=== PATIENT | female | born 1940 | race Caucasian/White ===

== ENCOUNTER 2022-06-30 13:43 | Outpatient (CLI) | payer MEDICARE, SELFPAY ==
--- OUTSIDE RECORDS SUMMARY | 2022-06-30 13:45 | XMS_ITS | Encounter Summary ---
:1940 Author Organization [facility] Address [address] [place] [address] Care Team Providers Name Role Phone Unavailable Primary Care Provider Unavailable Encounter Details Date Type Department Care Team Description 06/26/2018 Abstract [facility] CLARIBEL Cook ea Provider, Historical [address] [place] [address] Social History Tobacco Use Types Packs/Day Years Used Date Smoking Tobacco: Never Smokeless Tobacco: Never Alcohol Use Standard Drinks/Week Comments No 0 (1 standard drink = 0.6 oz pure alcoho l) Sex Assigned at Date Recorded Not on file documented as of this encounter Plan of Treatment Not on filedocumented as of this encounter Procedures Procedure Name Priority Date/Time Associated Diagnosis Comme nts BASIC METABOLIC PANEL, Routine 05/29/2018 Resul ts for this S/P procedure are i n the results section . documented in this encounter Results Basic Metabolic Panel (05/29/2018) P athologist Signature Glucose 119 mg/dL EXTERNAL NON-INTERFACED LAB Specimen (Source) Anatomical Location Collection Method / Collectio n Time Received Time / Laterality Volume Blood (Blood, Venous) Ordering Provider External M.D. LAB BLOOD ADD-ON Performing Organization Address City/State/ZIP Code Phon e Number EXTERNAL NON-INTERFACED LAB [address] [place], [place] [address] documented in this encounter Visit Diagnoses Not on filedocumented in this encounter
--- OUTSIDE RECORDS SUMMARY | 2022-06-30 13:45 | XMS_ITS | Encounter Summary ---
:1940 Author Organization [facility] Address [address] [place] [address] Care Team Providers Name Role Phone Unavailable Primary Care Provider Unavailable Reason for Visit Reason Comments Blurred Vision Appointment Request (Routine) - Closed Specialty Diagnoses / Procedures Referred By Contact Refer red To Contact Ophthalmology Referral ID Status Reason Start Date Expiration Date Visits Requ ested Visits Authorized [id number] Closed 12/13/2018 12/13/2019 1 Encounter Details Date Type Department Care Team Description 12/21/2018 Office Visit Department of Mauri Farrell Lef t (Primary Dx); Ophthalmology in [place] Lorenzana M.D. Replacement Intraocular Lens Status Post [address] [phone] Social History Tobacco Use Types Packs/Day Years Used Date Smoking Tobacco: Never Smokeless Tobacco: Never Alcohol Use Standard Drinks/Week Comments No 0 (1 standard drink = 0.6 oz pure alcoho l) Sex Assigned at Date Recorded Not on file documented as of this encounter Progress Notes Mauri Farrell M.D. - 12/21/2018 3:45 PM CDT Charla Graham was seen today for Blurred Vision #1 Myopia Left #2 Replacement Intraocular Lens Status Post The patient is concerned about blurriness in her left eye particularly when she watches TV. She is not wearing glasses for any visual tasks. Jerome vision was intended with her cataract surgery. Slit-lamp examination: Lid margins clean, conjunctiva is clear quiet, corneas clear, chambers quiet,lens implants well positioned with no capsule opacification. Fundus: OS the disc, macula, vessels and periphery are normal. The manifest refraction OS measures a -2.00 sphere with visual acuity correcting to 20/30 +2 Her near vision without correction with the left eye is J3 Impression: Status post bilateral cataract surgery with mono vision. Plan: Patient was educated about mono vision and how the left eye will seem blurry when looking at distance objects. She was reassured that the left eye is healthy and she was very satisfied with that explanation and is not interested in glasses. documented in this encounter Plan of Treatment Not on filedocumented as of this encounter Visit Diagnoses Diagnosis Myopia Left - Primary Replacement Intraocular Lens Status Post documented in this encounter
--- OUTSIDE RECORDS SUMMARY | 2022-06-30 13:45 | XMS_ITS | Encounter Summary ---
:1940 Author Organization [facility] Address [address] [place] [address] Care Team Providers Name Role Phone Unavailable Primary Care Provider Unavailable Reason for Visit Reason Comments Post-op Follow-up Encounter Details Date Type Department Care Team Description 07/04/2018 Office Visit Department of Mauri Farrell Aftercare Surgery Eye Ophthalmology in Sarbjit Lorenzana M.D. (Primary Dx) [address] [phone] Social History Tobacco Use Types Packs/Day Years Used Date Smoking Tobacco: Never Smokeless Tobacco: Never Alcohol Use Standard Drinks/Week Comments No 0 (1 standard drink = 0.6 oz pure alcoho l) Sex Assigned at Date Recorded Not on file documented as of this encounter Progress Notes Mauri Farrell M.D. - 07/04/2018 2:15 PM CST Charla Graham was seen today for Post-op Follow-up #1 Aftercare Surgery Eye Slit-lamp examination bilateral : Conjunctivae and sclerae are quiet, cornea(s)lear, anterior chamber(s) deep and quiet and lens implant(s) well centered. Intra-ocular pressure(s) wnl Impression: Status post bilateral cataract surgery doing well Plan: 1. Complete postop medications 2. Return to clinic in 1 year. CER documented in this encounter Plan of Treatment Not on filedocumented as of this encounter Visit Diagnoses Diagnosis Aftercare Surgery Eye - Primary documented in this encounter
--- OUTSIDE RECORDS SUMMARY | 2022-06-30 13:45 | XMS_ITS | Clinical Summary ---
:1940 Author Organization [facility] Address [address] [place] [address] Care Team Providers Name Role Phone Unavailable Primary Care Provider Unavailable Source Comments Patient records contain information from all sites at [facility]. For routine questions regarding patient records, call [phone] during business hours, M-F 8:00 AM - 5:00 PM Central Time. Record requests for emergency care only can be directed to [phone] at any time.[facility] Allergies Active Allergy Reactions Severity Noted Date Comments Ampicillin Itching Medium 10/28/2014 Tramadol Itching Medium 11/06/2012 Medications Medication Sig Dispensed Refills Start Date End Date Status glipiZIDE Take 10 mg by mouth. 0 10/20/2017 Active (GLUCOTROL) 10 mg tablet ubiquinone (COENZYME Take by mouth. 0 07/02/2013 Active Q10) 100 mg tablet OMEGA-3 FATTY Take 1 capsule by 0 06/06/2012 Active ACIDS-EPA ORAL mouth. ketorolac (ACULAR) Administer 1 drop 5 mL 1 06/11/2018 Active 0.5 % ophthalmic into the left eye 4 solution (four) times a day. Start 2 days piror to surgery and use until empty Additional Information Patient not taking. Reported on 07/04/2018 ketorolac (ACULAR) 0.5 % Administer 1 drop into the 5 mL 1 06/02/2018 Active ophthalmic solution right eye 4 (four) times a day. Start 2 days piror to surgery and use until empty Additional Information Patient not taking. Reported on 07/04/2018 prednisoLONE acetate (PRED Administer 1 drop into the 10 mL 0 06/11/2018 Active FORTE) 1 % ophthalmic right eye 4 (four) times a suspension day. Start 2 days prior to surgery and use for at least 30 days Additional Information Patient not taking. Reported on 07/04/2018 prednisoLONE acetate (PRED Administer 1 drop into the 10 mL 1 06/11/2018 Active FORTE) 1 % ophthalmic left eye 4 (four) times a suspension day. Start 2 days prior to surgery and use for 30 days following. Additional Information Patient not taking. Reported on 07/04/2018 moxifloxacin (VIGAMOX) 0.5 % Administer 1 drop into the 3 mL 1 06/11/2018 Active ophthalmic solution left eye 4 (four) times a day. Start 2 days prior to surgery. Use until bottle is empty Additional Information Patient not taking. Reported on 07/04/2018 moxifloxacin (VIGAMOX) 0.5 % Administer 1 drop into the 3 mL 1 06/02/2018 Active ophthalmic solution right eye 4 (four) times a day. Start 2 days prior to surgery and use until empty Additional Information Patient not taking. Reported on 07/04/2018 metFORMIN (GLUCOPHAGE) 500 mg tablet Take 500 mg by mouth. 0 05/14/2018 Active pravastatin (PRAVACHOL) 20 mg tablet Take 20 mg by mouth. 0 05/29/2018 Active Active Problems Problem Noted Date Diabetes Mellitus Type 2 Without Complication 05/31/20 18 Cataract Senile Nuclear Sclerosis Right 04/20/2018 Overview: Added automatically from request for sandra leger [id number] Cataract Senile Nuclear Sclerosis Left 04/20/2018 Overview: Added automatically from request for sandra leger [id number] Family History Medical History Relation Name Comments Hypertension Brother 1 Hypertension Brother 2 Diabetes Daughter Diabetes Mother Anesthesia problems Neg Hx Cataracts Neg Hx Glaucoma Neg Hx Macular degeneration Neg Hx Relation Name Status Comments Brother 1 Brother 2 Daughter Mother Social History Tobacco Use Types Packs/Day Years Used Date Smoking Tobacco: Never Smokeless Tobacco: Never Alcohol Use Standard Drinks/Week Comments No 0 (1 standard drink = 0.6 oz pure alcoho l) Sex Assigned at Date Recorded Not on file Last Filed Vital Signs Vital Sign Reading Time Taken Comments Blood Pressure 128/109 06/13/2018 12:30 PM CDT Pulse 73 06/13/2018 12:40 PM CDT Temperature 36.5 ??C (97.7 ??F) 06/13/2018 10:00 AM CDT Respiratory Rate 16 06/13/2018 10:00 AM CDT Oxygen Saturation 96% 06/13/2018 12:40 PM CDT Inhaled Oxygen Concentration - - Weight - - Height 155.7 cm (5' 1.3) 06/13/2018 10:00 AM CDT Body Mass Index - - Plan of Treatment Health Maintenance Due Date Last Done Comments Diabetic Office Visit with Foot 1940 Exam Office Visit for Blood Pressure 1940 Check / Re-check Urine Albumin 1940 COVID-19 Vaccine (#1) 01/15/1941 Pneumococcal vaccine (65+ years) 1946 (1 - PCV) DTaP,Tdap,and Td Vaccines (1 - 1957 Tdap) Zoster Vaccines (1 of 2) 1988 Hemoglobin A1C 11/12/2018 05/14/2018 Creatinine Level 05/04/2021 05/04/2020, 12/31/2018, 05/14/2018, Additional history exists Dilated Eye Exam 07/06/2021 07/06/2020, 04/18/2019, 12/21/2018, Additional history exists Depression Screening (Annual 08/14/2021 PHQ-2) Fall Risk Screen (Annual) 08/14/2021 Influenza Vaccine (#1) 2022 Medical Devices Implanted Type Area Improvement Director Device Shelf Model / Identifier Expiration Serial / Lot Date Hip Implant Hip Bilater Implant al: Hip Lens Tcn [id number] +25.0d - [id number] - [id number] Ocu lar [employer] [id number] / Implanted: Qty: 1 on 06/04/2018 by Mauri Joel am, M.D. at [facility] Lens (Previously [id number] / ALONDRA) Lens Tcn [id number] +26.0d - [id number] - [id number] Ocular Left: [employer] [id number] 12/07/2021 [id number] / Implanted: Qty: 1 on 06/13/2018 by Mauri Joel am, M.D. at [facility] Lens Eye (Previously [id number] / ALONDRA) Insurance Payer Benefit Plan / Subscriber ID Effective Dates Phone Addre ss Type Group MEDICARE MEDICARE A AND B [id number] 2003-Present [address] [place] [address] Advance Directives For more information, please contact: [phone] Latest Code Status on File Code Status Date Activated Date Inactivated Comments Full Code 06/13/2018 12:21 PM 06/13/2018 3:13 PM Question Answer Comments Full Code: Discussed Code Status History Code Status Date Activated Date Inactivated Comments Full Code 06/04/2018 11:49 AM 06/04/2018 2:31 PM Question Answer Comments Full Code: Discussed
--- OUTSIDE RECORDS SUMMARY | 2022-06-30 13:45 | XMS_ITS | Encounter Summary ---
:1940 Author Organization [facility] Address [address] [place] [address] Care Team Providers Name Role Phone Unavailable Primary Care Provider Unavailable Reason for Visit Reason Comments Eye Exam Encounter Details Date Type Department Care Team Description 04/18/2019 Comprehensive Visit Department of Paul Perez Mellitus Type 2 Without Complication (HCC) (Primary Dx); Ophthalmology in Sarbjit Lorenzana O.D. Astigma tism Regular Bilateral; [place], [place] Myopia Bilateral; [address] [facility] [place] [phone] Social History Tobacco Use Types Packs/Day Years Used Date Smoking Tobacco: Never Smokeless Tobacco: Never Alcohol Use Standard Drinks/Week Comments No 0 (1 standard drink = 0.6 oz pure alcoho l) Sex Assigned at Date Recorded Not on file documented as of this encounter Progress Notes Jam Perez O.D. - 04/18/2019 3:00 PM CDT Charla Graham was seen today for Eye Exam #1 Diabetes Mellitus Type 2 Without Complication (HCC) #2 Astigmatism Regular Bilateral #3 Myopia Bilateral #4 Presbyopia Impression: Diabetes without diabetic retinopathy. Myopic astigmatism with presbyopia. Pseudophakia with left eye set for near for mono vision. Plan: Patient is satisfied vision distance near without correction, manifest refraction of +2.50 addwas given for her information. She does not need to get glasses. Re-evaluate with full exam in 1 year. documented in this encounter Plan of Treatment Scheduled Orders Name Type Priority Associated Diagnoses Order S chedule OPH General eye exam Procedures Routine Diabetes Mellitus Ty pe 2 Expected: 04/19/2020 Without Complication (Approx imate), (HCC) Expires: 04/18/2022 Astigmatism Regular Bilateral Myopia Bilateral Presbyopia documented as of this encounter Visit Diagnoses Diagnosis Diabetes Mellitus Type 2 Without Complic ation (HCC) - Primary Astigmatism Regular Bilateral Myopia Bilateral Presbyopia documented in this encounter
--- OUTSIDE RECORDS SUMMARY | 2022-06-30 13:45 | XMS_ITS | Encounter Summary ---
:1940 Author Organization [facility] Address [address] [place] [address] Care Team Providers Name Role Phone Unavailable Primary Care Provider Unavailable Encounter Details Date Type Department Care Team Description 06/22/[address] [facility] CLARIBEL Cook ea Provider, Historical [address] [place] [phone] Social History Tobacco Use [...] Name Priority Date/Time Associated Diagnosis Comme nts HEMOGLOBIN A1C, B Routine 05/14/2018 Results fo r this procedure are i n the results section . LIPID PANEL, S Routine 05/14/2018 Results for t his procedure are i n the results section . BASIC METABOLIC PANEL, Routine 05/14/2018 Resul ts for this S/P procedure are i n the results section . documented in this encounter Results (ABNORMAL) Hemoglobin A1c (05/14/2018) P athologist Signature Hemoglobin A1c, 8.9 (A) 4.0 - 6.0 EXTERNAL B NON-INTERFACE D LAB Specimen (Source) Anatomical Location Collection Method / Collectio n Time Received Time / Laterality Volume Blood (Blood, Venous) Ordering Provider External M.D. LAB BLOOD ADD-ON Performing Organization Address City/State/ZIP Code Phon e Number EXTERNAL NON-INTERFACED LAB [address] [place], [place] [address] (ABNORMAL) Lipid Panel (05/14/2018) Patholo gist Method Time Signature Triglycerides 246 (A) 40 - 160 EXTERNAL NON-INTERFACE D LAB Cholesterol, Total 292 (A) 0 - 200 EXTERNAL NON-INTERFACE D LAB Cholesterol, HDL, 41 35 - 70 EXTERNAL S NON-INTERFACE D LAB LDL Cholesterol 202 EXTERNAL NON-INTERFACE D LAB Specimen (Source) Anatomical Location Collection Method / Collectio n Time Received Time / Laterality Volume Blood (Blood, Venous) Ordering Provider External M.D. LAB BLOOD NON ADD-ON Performing Organization Address [facility] Phon e Number EXTERNAL NON-INTERFACED LAB [address] [place], [place] [address] Basic Metabolic Panel (05/14/2018) P athologist Signature Glucose 132 mg/dL EXTERNAL NON-INTERFACED LAB BUN (Blood Urea 18 4 - 21 EXTERNAL Nitrogen), S NON-INTERFACED LAB Creatinine 0.84 0.5 - 1.1 EXTERNAL NON-INTERFACED LAB Potassium, S 4.4 3.4 - 5.3 EXTERNAL NON-INTERFACED LAB Sodium, S 138 137 - 147 EXTERNAL NON-INTERFACED LAB Specimen (Source) Anatomical Location Collection Method / Collectio n Time Received Time / Laterality Volume Blood (Blood, Venous) Ordering Provider External M.D. LAB BLOOD ADD-ON Performing Organization Address [facility] Phon e Number EXTERNAL NON-INTERFACED LAB [address] [place], [place] [address] documented in this encounter Visit Diagnoses Not on filedocumented in this encounter
--- OUTSIDE RECORDS SUMMARY | 2022-06-30 13:45 | XMS_ITS | Encounter Summary ---
:1940 Author Organization [facility] Address [address] [place] [address] Care Team Providers Name Role Phone Unavailable Primary Care Provider Unavailable Reason for Visit Reason Comments Post-op Follow-up Encounter Details Date Type Department Care Team Description 06/14/2018 Office Visit Department of Mauri Farrell Aftercare Surgery Eye Ophthalmology in Sarbjit Lorenzana M.D. (Primary Dx) [address] [phone] Social History Tobacco Use Types Packs/Day Years Used Date Smoking Tobacco: Never Smokeless Tobacco: Never Alcohol Use Standard Drinks/Week Comments No 0 (1 standard drink = 0.6 oz pure alcoho l) Sex Assigned at Date Recorded Not on file documented as of this encounter Progress Notes Mauri Farrell M.D. - 06/14/2018 1:00 PM CDT Charla Graham was seen today for Post-op Follow-up #1 Aftercare Surgery Eye History of present illness: The patient is 1 day postop cataract surgery of the left eye. Patient is taking the postop meds perprotocol. The patient is having no discomfort. The near vision is good . Slit-lamp examination left: Conjunctivae and sclerae are quiet, cornea shows mild edema and no punctate staining of the epithelium. The anterior chamber is shows mild cell and flare and the implant is well-centered. The incisions are intact and there are no leaks. Impression: 1. POD #1 cataract surgery of the left eye-doing well. Plan: 1. Postop care per protocol for the left eye. 2. Return to clinic in 2-3 weeks as scheduled for final postop check and manifest refraction. Dr. Farrell documented in this encounter Plan of Treatment Not on filedocumented as of this encounter Visit Diagnoses Diagnosis Aftercare Surgery Eye - Primary documented in this encounter
--- OUTSIDE RECORDS SUMMARY | 2022-06-30 13:45 | XMS_ITS | Encounter Summary ---
:1940 Author Organization [facility] Address [address] [place] [address] Care Team Providers Name Role Phone Unavailable Primary Care Provider Unavailable Reason for Visit Reason Comments Diabetic Eye Exam Encounter Details Date Type Department Care Team Description 07/06/2020 Comprehensive Visit Department of Paul Perez Mellitus Type 2 Without Complication (HCC) (Primary Dx); Ophthalmology in [place] Lorenzana O.D. Astigma tism Regular Bilateral; [place], [place] Myopia Bilateral; [address] [place] [place] [phone] Social History Tobacco Use Types Packs/Day Years Used Date Smoking Tobacco: Never Smokeless Tobacco: Never Alcohol Use Standard Drinks/Week Comments No 0 (1 standard drink = 0.6 oz pure alcoho l) Sex Assigned at Date Recorded Not on file documented as of this encounter Progress Notes Jam Perez O.D. - 07/06/2020 1:00 PM CST Charla Graham was seen today for Diabetic Eye Exam #1 Diabetes Mellitus Type 2 Without Complication (HCC) #2 Astigmatism Regular Bilateral #3 Myopia Bilateral #4 Presbyopia Impression: Yearly prevented exam for diabetes. No diabetic retinopathy is found in either eye. Low amount of astigmatism in right eye and myopic astigmatism on the left eye post cataract surgery. Has mono vision left eye for near. Plan: Manifest refraction of +2.50 add was given for patient's information. She is satisfied with vision with mono vision at this time. Recheck health of eyes with full exam in 1 year. R REPRESENTATIVE documented in this encounter Plan of Treatment Not on filedocumented as of this encounter Visit Diagnoses Diagnosis Diabetes Mellitus Type 2 Without Complic ation (HCC) - Primary Astigmatism Regular Bilateral Myopia Bilateral Presbyopia documented in this encounter
--- OUTSIDE RECORDS SUMMARY | 2022-06-30 13:46 | XMS_ITS | Encounter Summary ---
:1940 Author Organization [facility] Address [address] [place] [address] Care Team Providers Name Role Phone Unavailable Primary Care Provider Unavailable Encounter Details Date Type Department Care Team Description 06/04/2018 Hospital Encounter [facility] MA[facility] OR Mauri Farrell, [address] [place] [address] [address] [facility] [phone] [place] [address] (Wo rk) Social History Tobacco Use Types Packs/Day Years Used Date Smoking Tobacco: Never Smokeless Tobacco: Never Alcohol Use Standard Drinks/Week Comments No 0 (1 standard drink = 0.6 oz pure alcoho l) Sex Assigned at Date Recorded Not on file documented as of this encounter Last Filed Vital Signs Vital Sign Reading Time Taken Comments Blood Pressure 122/70 06/04/2018 11:45 AM CDT Pulse 81 06/04/2018 12:00 PM CDT Temperature 36.4 ??C (97.5 ??F) 06/04/2018 11:42 AM CDT Respiratory Rate 16 06/04/2018 11:42 AM CDT Oxygen Saturation 96% 06/04/2018 12:00 PM CDT Inhaled Oxygen Concentration - - Weight - - Height - - Body Mass Index - - documented in this encounter Discharge Instructions Discharge InstructionsMichelle Allen R.N. - 06/04/2018 10:48 AM CDT Images from the original note were not included. Care Following Cataract Surgery When you leave the hospital after your eye surgery, follow these instructions: Medications: Start these eye drops as directed. Wait approximately five minutes between eye drops. Vigamox- 1 drop to Right____ eye, 4 times/day until bottle is empty. Ketorolac - 1 drop to Right____ eye, 4 times/day until bottle is empty. Prednisolone - 1 drop to ____Right__ eye, 4 times/day for a minimum of 30 days Over- the-Counter Acetaminophen 650 mg every 4 hours as needed for pain. Do not exceed more than 4,000 mg in a 24 hourperiod. Artificial tears - 1 drop, 4 times/day as needed for discomfort. Eye Shield should be worn at bedtime or while napping to protect the eye. Wear the shield for at least a week or as instructed by your doctor. If you are discharged wearing an eye patch: Remove eye patch long enough to put eye drops in as directed. Leave eye patch in place until you see the doctor. Do not rub or press your eye for one week. Sunglasses: It is necessary to wear your glasses or sunglasses when you are outside to protect your eye while it is healing. It is normal to be sensitive to sunlight for several weeks following surgery and the sunglasses willhelp reduce this. Morning Crusting: A slight mattering is normal for a few days after surgery. Use a guaze pad or cotton ball, moistened with clean water to gently remove it. Activities: You can do all your normal activities, provided they are not extremely heavy. Do not lift anything greater than 25 pounds for one week. If you need a work-restriction note from your provider, ask for one at your follow- up appointment. If a physical activity makes your eye hurt, avoid it. It is fine to bend over, read, or watch Tv. Use your eyes as much as you want. Avoid swimming pools and hot tubs for two weeks. What to expect as your eye heals: Your vision on the day of surgery may be foggy and hazy; this is normal and will clear as your eye heals. Your glasses will be wrong for your eye but wearing them while the eye heals will not hurt it; however you may ask the [facility] to remove one eyeglass lens so that you can see with your surgically-repaired eye. Your glasses will be changed, as needed, two to four weeks following surgery or after your second eye surgery, if applicable. It is common to see small spots floating in your vision immediately following surgery. It is not unusual to see pink or red colors or for the eye to fell scratchy a few days after surgery. When to call your physician Call your eye surgeon if you notice: ?? Worsening of your vision. ?? Marked increase in eye redness or secretions from the eye. ?? Pain in your eye. (Itching and a mild gritty sensation are normal.) ?? Severe floaters develop suddenly are accompanied by flashes of light. If you have problems or concerns, contact your doctor or come to the Emergency Department. There also is a 06/03 surgical triage nurse line available that you can reach by calling [phone]. If you had anesthesia or sedation, do not drive for 24 to 48 hours. Follow-up appointment (bring bag with eye drops) Your surgeon is Dr. Farrell - [phone] (office) - [phone] (cell) documented in this encounter Medications at Time of Discharge Medication Sig Dispensed Refills Start Date End Date glipiZIDE (GLUCOTROL) 10 Take 10 mg by mouth. 0 0 10/20/2017 mg tablet ketorolac (ACULAR) 0.5 % Administer 1 drop into 5 mL 1 06/11/2018 ophthalmic solution the left eye 4 (four) times a day. Start 2 days piror to surgery and use until empty ketorolac (ACULAR) 0.5 % Administer 1 drop into 5 mL 1 06/02/2018 ophthalmic solution the right eye 4 (four) times a day. Start 2 days piror to surgery and use until empty moxifloxacin (VIGAMOX) Administer 1 drop into 3 mL 1 1 0.5 % ophthalmic solution the left eye 4 (four) times a day. Start 2 days prior to surgery. Use until bottle is empty OMEGA-3 FATTY ACIDS-EPA Take 1 capsule by 0 06/06 ORAL mouth. ubiquinone (COENZYME Q10) Take by mouth. 0 2012 100 mg tablet metFORMIN (GLUCOPHAGE) Take 500 mg by mouth. 0 500 mg tablet moxifloxacin (VIGAMOX) Administer 1 drop into 3 mL 1 1 0.5 % ophthalmic solution the right eye 4 (four) times a day. Start 2 days prior to surgery and use until empty pravastatin (PRAVACHOL) Take 20 mg by mouth. 0 20 mg tablet prednisoLONE acetate Administer 1 drop into 10 mL 0 (PRED FORTE) 1 % the right eye 4 (four) ophthalmic suspension times a day. Start 2 days prior to surgery and use for at least 30 days prednisoLONE acetate Administer 1 drop into 10 mL 1 (PRED FORTE) 1 % the left eye 4 (four) ophthalmic suspension times a day. Start 2 days prior to surgery and use for 30 days following. documented as of this encounter H&P Notes Mauri Farrell M.D. - 06/04/2018 11:11 AM CDT INTERVAL HISTORY AND PHYSICAL PRE-PROCEDURE UPDATE H&P reviewed. The patient was examined and there are no significant changes to the H&P. Mauri Farrell M.D. Source Note - Andrea, Default Authenticator - 05/29/2018 4:12 PM CDT documented in this encounter OR Notes Op Note - Mauri Farrell M.D. - 06/04/2018 11:24 AM CDT FULL OP NOTE Procedure(s): EXTRACTION CATARACT WITH INSERTION INTRAOCULAR LENS, right eye - Topical/Standard Lens (Right) Surgeon(s) and Role: * Mauri Farrell M.D. - Primary Anesthesia Type: Monitored Anesthesia Care Pre-Operative Diagnosis: Cataract Senile Nuclear Sclerosis Right [H25.11] Full Operative Note Details Specimens * No specimens in log * Drains * No drains in log * Estimated Blood Loss 0 mL Implants Implant Name Type Inv. Item Serial No. Exam Proctor Lot No. LRB No. Used Action LENS TCN [id number] +25.0D - [id number] - [id number] Ocular Lens LENS TCN [id number] +25.0D [id number] [employer] Right 1 Implanted Mauri Farrell M.D. PREOPERATIVE DIAGNOSIS Visually disabling nuclear sclerotic cataract of the right eye. POSTOPERATIVE DIAGNOSIS Visually disablingnuclear sclerotic cataract of the right eye. PROCEDURE PERFORMED Phacoemulsification with lens implantation, right eye. SURGEON Mauri Farrell MD ANESTHESIA MAC. COMPLICATIONS None. CHIEF COMPLAINT Charla Graham presented with complaints of poor vision right eye. She had evidence of nuclear sclerotic cataract. The risks, benefits and alternatives to surgery were discussed including suprachoroidal hemorrhage, endophthalmitis, loss of vision and loss of the eye. She desired emmetropia with a monofocal lens and a consent was obtained. The IOL Master and Pentacam reviewed for IOL selection. PROCEDURE In the operating room after receiving topical anesthesia the right eye was prepped and draped in a sterile fashion. A lid speculum was placed in the eye. A 6:30 paracentesis tract was made. Viscoelastic was injected into the anterior chamber. A 2.5 mm clear corneal incision was made at the temporal limbus with the horacio knife. A cystotome needle and Utrata forceps created a capsulorrhexis. Hydrodissection and hydrodelineation were performed. The central cortex and epinucleus were removed from within the capsulorrhexis using the phaco handpiece. The nucleus was grooved centrally and deeply [id number] degrees and cracked in half. Each nuclear half was disassembled using the phaco chopper and handpiece. Each nuclear fragment was captured, phacoemulsified and removed. The epinuclear bowl was captured, flipped over and removed in its entirety. Residual cortex was removed with the irrigation and aspiration handpiece. Viscoelastic filled the capsule and anterior chamber. An ALONDRA PCIOL model [id number] with a power of 25.0 diopters was inserted into the capsule without difficulty. Residual viscoelastic was removed from the capsule and anterior chamber. The stroma of the wound and paracentesis tracts werehydrated and the chamber filled to a normal intraocular pressure. The wounds were checked for leaks and none were found. The patient tolerated the procedure well and left the operating room in satisfactory condition. 0.2 mL of Vigamox injected was into the anterior at the end of the case. The patient will not be co-managed. Mauri Farrell M.D. Brief Op Note - Mauri Farrell M.D. - 06/04/2018 11:24 AM CDT BRIEF OP NOTE Procedure(s): EXTRACTION CATARACT WITH INSERTION INTRAOCULAR LENS, right eye - Topical/Standard Lens (Right) Surgeon(s): Mauri Farrell M.D. 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 Item Serial No. Exam Proctor Lot No. LRB No. Used Action LENS TCN [id number] +25.0D - [id number] - [id number] Ocular Lens LENS TCN [id number] +25.0D [id number] [employer] Right 1 Implanted Mauri Farrell M.D. documented in this encounter Plan of Treatment Not on filedocumented as of this encounter Procedures Procedure Name Priority Date/Time Associated Diagnosis Comme nts EXTRACTION CATARACT WITH 06/04/2018 11:15 AM Cataract Senile INSERTION INTRAOCULAR CDT Nuclear Sclerosis LENS Right documented in this encounter Visit Diagnoses Diagnosis Cataract Senile Nuclear Sclerosis Right - Primary documented in this encounter Admitting Diagnoses Diagnosis Cataract Senile Nuclear Sclerosis Right documented in this encounter Administered Medications Inactive Administered Medications - up to 3 most recent administrations Medication Order MAR Action Action Date Dose Rate Site cyclopentolate-phenylephrine in Given 06/04/2018 10:27 AM CDT 1 drop hypromellose 0.125-1.25 % ophthalmic solution 1 drop (DILATING DROPS) 1 drop, right eye, Once, On 06/04/18 at 1030, For 1 dose, Pre-Op, Apply over cornea in operative eye, towards superior fornix and towards inferior fornix. Apply at least 30 minutes prior to case sodium chloride injection 10 mL 10 mL, intravenous, As needed, line care , Starting on Mon06/04/18 at 1022, Pre-Op, Peripheral Intravenous Catheter and Rapid Infusion Cat heter, prior to blood sampling, post blood transfusion or post blood samplin g sodium chloride injection 3 mL 3 mL, intravenous, As needed, line care, Starting on Mon06/04/18 at 1022, Pre-Op, Prior to and following infusion and betw een multiple consecutive infusions: sodium chloride 0.9 % injection sodium chloride injection 3 mL 3 mL, intravenous, Every 12 hours schedu led, First dose on Mon06/04/18 at 2100, Pre-Op, Peripheral Intravenous Catheter and Rapid Infu yue Catheter, when no infusion to maintain patency tetracaine (PF) 0.5 % ophthalmic solution 1 Given 05/15 10:26 AM CDT 1 drop drop (ALTACAINE) 1 drop, right eye, Every 5 min, First dose on Mon06/04/18 at 1030, For 1 dose, Pre-Op, in operative eye documented in this encounter Active and Recently Administered Medications Times are shown in CDT. Scheduled Medication Order 06/02/2018 06/03/2018 06/04/2018 cyclopentolate-phenylephrine in hypromel lose 0.125-1.25 % ophthalmic solution 1 drop (DILATING DROPS) (COMPLETED) 1027 ( Given - Provider: Fay Randhawa R.N.) 1 drop, right eye, Once, On Mon06/04/18 at 1030, For 1 dose, Pre-Op, Apply over cornea in operative eye, towards superior fornix and towards inferior fornix. Apply at least 30 minutes prior to case moxifloxacin 0.5 % ophthalmic solution 1 drop (VIGAMOX) (COMPLET ED) 1030 (Due)1126 (Given - Provider: Mauri Farrell M.D.) 1 drop, right eye, Once, On Mon06/04/18 at 1030, For 1 dose, Intra-Op, 0.1 cubic centimeters intracamerally., Indications: prevent endophthalmitis sodium chloride injection 10 mL 10 mL, intravenous, Every 8 hours schedu led (RT), First dose on Mon06/04/18 at 1500, Pre-Op, Peripheral Intravenous Catheter and Rapid Infusion Catheter, prior to blood sampling, post blood transfusion or post blood sampling sodium chloride injection 3 mL 3 mL, intravenous, Every 12 hours schedu led, First dose on Mon06/04/18 at 2100, Pre-Op, Peripheral Intravenous Catheter and Rapid Infusion Catheter, when no infusion to maintain patency sodium chloride injection 3 mL 3 mL, intravenous, Every 12 hours schedu led, First dose on Mon06/04/18 at 2100, Pre-Op, Peripheral Intravenous Catheter and Rapid Infusion Catheter, when no infusion to maintain patency tetracaine (PF) 0.5 % ophthalmic solution 1 drop (ALTACAINE) (CO MPLETED) 1026 (Given - Provider: Fay Randhawa R.N.) 1 drop, right eye, Every 5 min, First do se on Mon06/04/18 at 1030, For 1 dose, Pre-Op, in operative eye PRN Medication Order 06/02/2018 06/03/2018 06/04/2018 balanced salt solution ophthalmic irrigation (BSS) (CANCELED) 1125 (Given - Provider: Mauri Farrell M.D.) As needed, Starting on Mon06/04/18 at 1125, Intra-Op chondroitin sulfate-sodium hyaluronate i ntraocular injection (DUOVISC) (CANCELED) 1126 (Given - Provid er: Mauri Farrell M.D.) As needed, Starting on Mon06/04/18 at 1126, Intra-Op EPINEPHrine 0.3 mg in balanced salt solu tion plus 500 mL ophthalmic irrigation (CANCELED) 1126 (Given - Provid er: Mauri Farrell M.D.) As needed, Starting on Mon06/04/18 at 1126, Intra-Op lidocaine (PF) 10 mg/mL (1 %) injection (XYLOCAINE) (CANCELED) 1126 (Given - Provider: Mauri Farrell M.D.) As needed, Starting on Mon06/04/18 at 1126, Intra-Op naloxone injection 0.2 mg (NARCAN) 0.2 mg, intravenous, As needed, respirat ory depression, Starting Mon06/04/18 at 1149, For respiratory rate less than 8 breaths per minute or RASS score of -3, -4, -5. Apply oxygen to keep oxygen saturations greater than 90% and notify service. povidone-iodine 5 % ophthalmic solution (BETADINE) (CANCELED) 112 (Given - Provider: Vane Oliver R.N.) As needed, Starting on Mon06/04/18 at 1126, Intra-Op sodium chloride injection 10 mL 10 mL, intravenous, As needed, line care , Starting on Mon06/04/18 at 1022, Pre- Op, Peripheral Intravenous Catheter and Rapid Infusion Catheter, prior to blood sampling, post blood transfusion or post blood sampling sodium chloride injection 3 mL 3 mL, intravenous, As needed, line care, Starting on Mon06/04/18 at 1022, Pre- Op, Prior to and following infusion and between multiple consecutive infusions: sodium chloride 0.9 % injection tetracaine (PF) 0.5 % ophthalmic solution (ALTACAINE) (CANCELED) 1125 (Given - Provider: Vane Oliver R.N.) As needed, Starting on Mon06/04/18 at 1126, Intra-Op documented in this encounter
--- OUTSIDE RECORDS SUMMARY | 2022-06-30 13:46 | XMS_ITS | Encounter Summary ---
:1940 Author Organization [facility] Address [address] [place] [address] Care Team Providers Name Role Phone Unavailable Primary Care Provider Unavailable Encounter Details Date Type Department Care Team Description 06/13/2018 Hospital Encounter [facility] MAIN OR Mauri Farrell, [address] [place] [address] [address] [facility] [phone] [place] [address] (Wo rk) Social History Tobacco [...] AM CDT Body Mass Index - - documented in this encounter Discharge Instructions Discharge InstructionsCharley Izquierdo R.N. - 06/13/2018 12:23 PM CDT Images from the original note were not included. Care Following Cataract Surgery When you leave the hospital after your eye surgery, follow these instructions: Medications: Start these eye drops as directed. Wait approximately five minutes between eye drops. Vigamox/Zymaxid/Ofloxacin - 1 drop to left eye, 4 times/day until bottle is empty. Diclofenac/Ketorolac - 1 drop to left eye, 4 times/day until bottle is empty. Prednisolone - 1 drop to left eye, 4 times/day for a minimum of [...] week or as instructed by your doctor. Do not rub or press your [...] available that you can reach by calling [phone]. If you had anesthesia or sedation, do not drive for 24 to 48 hours. Follow-up appointment (bring bag with eye drops) Your surgeon is Dr. Farrell - [phone] (office) - [phone] (cell) documented in this encounter Medications at Time of Discharge Medication Sig Dispensed Refills Start Date End Date ketorolac (ACULAR) 0.5 % Administer 1 drop [...] to surgery. Use until bottle is empty prednisoLONE acetate Administer 1 drop into 10 mL 1 (PRED FORTE) 1 % the left eye 4 (four) ophthalmic suspension times a day. Start 2 days prior to surgery and use for 30 days following. glipiZIDE (GLUCOTROL) 10 Take 10 mg by mouth. 0 0 10/20/2017 mg tablet ketorolac (ACULAR) 0.5 % Administer 1 drop into 5 mL 1 06/02/2018 ophthalmic solution the right eye 4 (four) times a day. Start 2 days piror to surgery and use until empty metFORMIN (GLUCOPHAGE) Take 500 mg by mouth. 0 500 mg tablet moxifloxacin (VIGAMOX) Administer 1 drop into 3 mL 1 1 0.5 % ophthalmic solution the right eye 4 (four) times a day. Start 2 days prior to surgery and use until empty OMEGA-3 FATTY ACIDS-EPA Take 1 capsule by 0 06/06 ORAL mouth. pravastatin (PRAVACHOL) Take 20 mg by mouth. 0 20 mg tablet prednisoLONE acetate Administer 1 drop into 10 mL 0 (PRED FORTE) 1 % the right eye 4 (four) ophthalmic suspension times a day. Start 2 days prior to surgery and use for at least 30 days ubiquinone (COENZYME Q10) Take by mouth. 0 2012 100 mg tablet documented as of this encounter H&P Notes Mauri Farrell M.D. - 06/13/2018 10:42 AM CDT Day of Surgery H&P: Allergies, Medications, Past Medical and Surgical History: Allergies reviewed and updated as necessary. Medications reviewed and updated as necessary. Physical Exam: General: Alert, oriented, and not in distress HEENT: Grossly Normal Heart: Regular in rate and rhythm Lungs: Clear to Auscultation Abdomen: Unchanged from prior outpatient exam. Musculoskeletal/Extremities: Grossly within normal limits Neurological: Grossly within normal limits Assessment and Plan: Plan Unchanged documented in this encounter OR Notes Op Note - Mauri Farrell M.D. - 06/13/2018 12:02 PM CDT FULL OP NOTE Procedure(s): EXTRACTION CATARACT WITH INSERTION INTRAOCULAR LENS, LEFT EYE-Topical/Standard lens (Left) Surgeon(s) and Role: * Mauri Farrell M.D. - Primary Anesthesia Type: Monitored Anesthesia Care Pre-Operative Diagnosis: Cataract Senile Nuclear Sclerosis Left [H25.12] Full Operative Note Details Specimens * No specimens in log * Drains * No drains in log * Estimated Blood Loss 0 mL Implants Implant Name Type Inv. Item Serial No. Refinery Operator Gas Plant Lot No. LRB No. Used Action LENS N [id number] ANT +26.0D - [id number] - [id number] Ocular Lens LENS TCN [id number] ANT +26.0D [id number] [employer] Left 1 Implanted Mauri Farrell M.D. PREOPERATIVE DIAGNOSIS Visually disabling nuclear sclerotic cataract of the left eye. POSTOPERATIVE DIAGNOSIS Visually disablingnuclear sclerotic cataract of the left eye. PROCEDURE PERFORMED Phacoemulsification with lens implantation, left eye. SURGEON Mauri Farrell MD ANESTHESIA MAC. COMPLICATIONS None. CHIEF COMPLAINT Charla Graham presented with complaints of poor vision left eye. She had evidence of nuclear sclerotic cataract. The risks, benefits and alternatives to surgery were discussed including suprachoroidal hemorrhage, endophthalmitis, loss of vision and loss of the eye. She desired -1.25 sph with a monofocal lens and a consent was obtained. The IOL Master and Pentacam reviewed for IOL selection. PROCEDURE In the operating room after receiving topical anesthesia the left eye was prepped and draped in a sterile fashion. A lid speculum was placed in the eye. A 6:30 paracentesis tract was made. Viscoelasticwas injected into the anterior chamber. A 2.5 mm clear corneal incision was made at the temporal limbus with the horacio knife. A cystotome needle and Utrata forceps created a capsulorrhexis. Hydrodissection and hydrodelineation were performed. The central cortex and epinucleus were removed from within the capsulorrhexis using the phaco handpiece. The nucleus was grooved centrally and deeply rotated 90 degrees and cracked in half. Each nuclear half was disassembled using the phaco chopper and handpiece. Each nuclear fragment was captured, phacoemulsified and removed. The epinuclear bowl was captured, flipped over and removed in its entirety. Residual cortex was removed with the irrigation and aspiration handpiece. Viscoelastic filled the capsule and anterior chamber. An ALONDRA PCIOL model [id number] witha power of 26.0 diopters was inserted into the capsule without difficulty. Residual viscoelastic wasremoved from the capsule and anterior chamber. The stroma of the wound and paracentesis tracts were hydrated and the chamber filled to a normal intraocular pressure. The wounds were checked for leaks and none were found. The patient tolerated the procedure well and left the operating room in satisfactory condition. 0.2 mL of vigamox injected was into the anterior at the end of the case. The patient will not be co-managed. Mauri Farrell M.D. Brief Op Note - Mauri Farrell M.D. - 06/13/2018 12:02 PM CDT BRIEF OP NOTE Procedure(s): EXTRACTION CATARACT WITH INSERTION INTRAOCULAR LENS, LEFT EYE-Topical/Standard lens (Left) Surgeon(s): Mauri Farrell M.D. Anesthesia Type: Monitored Anesthesia Care Pre-Operative Diagnosis: Cataract Senile Nuclear Sclerosis Left [H25.12] Brief Operative Note Details Specimens * No specimens in log * Drains * No drains in log * Estimated Blood Loss 0 mL Implants Implant Name Type Inv. Item Serial No. Refinery Operator Gas Plant Lot No. LRB No. Used Action LENS TCN [id number] ANT +26.0D - [id number] - [id number] Ocular Lens LENS TCN [id number] ANT +26.0D [id number] [employer] Left 1 Implanted Mauri Farrell M.D. documented in this encounter Plan of Treatment Not on filedocumented as of this encounter Procedures Procedure Name Priority Date/Time Associated Diagnosis Comme nts EXTRACTION CATARACT WITH 06/13/2018 11:48 AM Cataract Senile INSERTION INTRAOCULAR CDT Nuclear Sclerosis L eft LENS documented in this encounter Visit Diagnoses Diagnosis Cataract Senile Nuclear Sclerosis Left - Primary documented in this encounter Admitting Diagnoses Diagnosis Cataract Senile Nuclear Sclerosis Left documented in this encounter Administered Medications Inactive Administered Medications - up to 3 most recent administrations Medication Order MAR Action Action Date Dose Rate Site cyclopentolate-phenylephrine in Given 06/13/2018 9:58 AM CDT 1 d rop hypromellose 0.125-1.25 % ophthalmic solution 1 drop (DILATING DROPS) 1 drop, left eye, Once, On Mon06/13/18 at 1000, For 1 dose, Pre-Op, Apply over cornea in operative eye, towards superior fornix and towards inferior fornix. Apply at least 30 minutes prior to case sodium chloride injection 10 mL Given 06/13/2018 9:59 AM CDT 10 mL 10 mL, intravenous, As needed, line care, Starting on Mon06/13/18 at 0947, Pre-Op, Peripheral Intravenous Catheter and Rapid Infusion Catheter, prior to blood sampling, post blood transfusion or post blood sampling sodium chloride injection 3 mL 3 mL, intravenous, As needed, line care, Starting on Mon06/13/18 at 0947, Pre-Op, Prior to and following infusion and betw een multiple consecutive infusions: sodium chloride 0.9 % injection sodium chloride injection 3 mL 3 mL, intravenous, Every 12 hours schedu led, First dose on Mon06/13/18 at 2100, Pre-Op, Peripheral Intravenous Catheter and Rapid Infu yue Catheter, when no infusion to maintain patency tetracaine (PF) 0.5 % ophthalmic solution 1 Given 06/13/2018 9:58 AM CDT 1 drop drop (ALTACAINE) 1 drop, left eye, Every 5 min, First dose on Mon06/13/18 at 1000, For 1 dose, Pre-Op, in operative eye documented in this encounter Active and Recently Administered Medications Times are shown in CDT. Scheduled Medication Order 06/11/2018 06/12/2018 06/13/2018 cyclopentolate-phenylephrine in hypromel lose 0.125-1.25 % ophthalmic solution 1 drop (DILATING DROPS) (COMPLETED) 0958 ( Given - Provider: Kimberli Kerr R.N.) 1 drop, left eye, Once, On Mon06/13/18 at 1000, For 1 dose, Pre-Op, Apply over cornea in operative eye, towards superior fornix and towards inferior fornix. Apply at least 30 minutes prior to case moxifloxacin 0.5 % ophthalmic solution 1 drop (VIGAMOX) (COMPLET ED) 1000 (Due)1203 (Given - Provider: Mauri Farrell M.D.) 1 drop, left eye, Once, On Mon06/13/18 at 1000, For 1 dose, Intra-Op, 0.1 cubic centimeters intracamerally., Indications: prevent endophthalmitis sodium chloride injection 10 mL 10 mL, intravenous, Every 8 hours schedu led (RT), First dose on Mon06/13/18 at 1500, Pre-Op, Peripheral Intravenous Catheter and Rapid Infusion Catheter, prior to blood sampling, post blood transfusion or post blood sampling sodium chloride injection 3 mL 3 mL, intravenous, Every 12 hours schedu led, First dose on Mon06/13/18 at 2100, Pre-Op, Peripheral Intravenous Catheter and Rapid Infusion Catheter, when no infusion to maintain patency sodium chloride injection 3 mL 3 mL, intravenous, Every 12 hours schedu led, First dose on Mon06/13/18 at 2100, Pre-Op, Peripheral Intravenous Catheter and Rapid Infusion Catheter, when no infusion to maintain patency tetracaine (PF) 0.5 % ophthalmic solution 1 drop (ALTACAINE) (CO MPLETED) 0958 (Given - Provider: Kimberli Kerr R.N.) 1 drop, left eye, Every 5 min, First dos e on Mon06/13/18 at 1000, For 1 dose, Pre-Op, in operative eye PRN Medication Order 06/11/2018 06/12/2018 06/13/2018 balanced salt solution ophthalmic irrigation (BSS) (CANCELED) 1203 (Given - Provider: Mauri Farrell M.D.) As needed, Starting on Mon06/13/18 at 1203, Intra-Op chondroitin sulfate-sodium hyaluronate i ntraocular injection (DUOVISC) (CANCELED) 1203 (Given - Provid er: Mauri Farrell M.D.) As needed, Starting on Mon06/13/18 at 1203, Intra-Op EPINEPHrine 0.3 mg in balanced salt solu tion plus 500 mL ophthalmic irrigation (CANCELED) 1203 (Given - Provid er: Mauri Farrell M.D.) As needed, Starting on Mon06/13/18 at 1203, Intra-Op lidocaine (PF) 10 mg/mL (1 %) injection (XYLOCAINE) (CANCELED) 1203 (Given - Provider: Mauri Farrell M.D.) As needed, Starting on Mon06/13/18 at 1203, Intra-Op naloxone injection 0.2 mg (NARCAN) 0.2 mg, intravenous, As needed, respirat ory depression, Starting Mon06/13/18 at 1221, For respiratory rate less than 8 breaths per minute or RASS score of -3, -4, -5. Apply oxygen to keep oxygen saturations greater than 90% and notify service. povidone-iodine 5 % ophthalmic solution (BETADINE) (CANCELED) 1203 (Given - Provider: Stefania Quintanilla RRafal) As needed, Starting on Mon06/13/18 at 1203, Intra-Op sodium chloride injection 10 mL 0959 (Given - Provider: Kimberli Kerr R.N.) 10 mL, intravenous, As needed, line care , Starting on Mon06/13/18 at 0947, Pre- Op, Peripheral Intravenous Catheter and Rapid Infusion Catheter, prior to blood sampling, post blood transfusion or post blood sampling sodium chloride injection 3 mL 3 mL, intravenous, As needed, line care, Starting on Mon06/13/18 at 0947, Pre- Op, Prior to and following infusion and between multiple consecutive infusions: sodium chloride 0.9 % injection tetracaine (PF) 0.5 % ophthalmic solution (ALTACAINE) (CANCELED) 1204 (Given - Provider: Stefania Quintanilla R.N.) As needed, Starting on Mon06/13/18 at 1204, Intra-Op documented in this encounter
--- OUTSIDE RECORDS SUMMARY | 2022-06-30 13:46 | XMS_ITS | Encounter Summary ---
:1940 Author Organization [facility] Address [address] [place] [address] Care Team Providers Name Role Phone Unavailable Primary Care Provider Unavailable Reason for Visit Reason Comments Med Refill Encounter Details Date Type Department Care Team Description 06/07/2018 Refill Department of Ophthalmology in Mauri London M.D. Med Refill [place], [place] [address] [place] [address] [place] [id number] [place] [address] [phone] Social History Tobacco Use Types Packs/Day Years Used Date Smoking Tobacco: Never Smokeless Tobacco: Never Alcohol Use Standard Drinks/Week Comments No 0 (1 standard drink = 0.6 oz pure alcoho l) Sex Assigned at Date Recorded Not on file documented as of this encounter Miscellaneous Notes Telephone Encounter - Soraida Purcell R.N. - 06/07/2018 1:27 PM CDT This prescription/refill wasn't needed, When pharmacy was called, they had an eprescribe in the computer for the left eye specifically. Telephone Encounter - Zack Sheldon - 06/07/2018 12:47 PM CDT Please advise on medication request. documented in this encounter Plan of Treatment Not on filedocumented as of this encounter Visit Diagnoses Not on filedocumented in this encounter
--- OUTSIDE RECORDS SUMMARY | 2022-06-30 13:46 | XMS_ITS | Encounter Summary ---
:1940 Author Organization [facility] Address [address] [place] [address] Care Team Providers Name Role Phone Unavailable Primary Care Provider Unavailable Encounter Details Date Type Department Care Team Description 06/04/2018 Surgery [facility] MAIN OR Mauri Farrell, EXTRACTION CATARACT [address] [place] [address] [address] INTRAOCULAR LENS, right [phone] [facility] [place] [facility] - Topical/S tandard [phone] Lens [phone] (Wo rk) Social History Tobacco Use Types [...] 06/04/2018 11:45 AM CDT Pulse 81 06/04/2018 11:45 AM CDT Temperature 36.4 ??C (97.5 ??F) 06/04/2018 11:42 AM CDT Respiratory Rate 16 06/04/2018 11:42 AM CDT Oxygen Saturation 97% 06/04/2018 11:45 AM CDT Inhaled Oxygen Concentration - - Weight [...] available that you can reach by calling [phone]. If you had anesthesia or sedation, do not drive for 24 to 48 hours. Follow-up appointment (bring bag with eye drops) Your surgeon is Dr. Farrell - [phone] (office) - [phone] (cell) documented in this encounter Medications at [...] Implant Name Type Inv. Item Serial No. Certified Surgical Technician Lot No. LRB No. Used Action LENS TCN [id number] +25.0D - [id number] - [id number] Ocular Lens LENS TCN [id number] +25.0D [id number] [employer] Right 1 Implanted Mauri Farrell [...] The nucleus was grooved centrally and deeply [id number] degrees and cracked in half. Each nuclear [...] Implant Name Type Inv. Item Serial No. Certified Surgical Technician Lot No. LRB No. Used Action LENS TCN [id number] +25.0D - [id number] - [id number] Ocular Lens LENS TCN [id number] +25.0D [id number] [employer] Right 1 Implanted Mauri Farrell M.D. documented in this encounter Plan of Treatment Not on filedocumented as of this encounter Procedures Procedure Name Priority Date/Time Associated Diagnosis Comme nts EXTRACTION CATARACT WITH 06/04/2018 11:15 AM Cataract Senile INSERTION INTRAOCULAR CDT Nuclear Sclerosis LENS Right documented in this encounter Visit Diagnoses Diagnosis Cataract Senile Nuclear Sclerosis Right - Primary Cataract Senile Nuclear Sclerosis Right documented in this encounter Admitting Diagnoses Diagnosis Cataract Senile Nuclear Sclerosis Right documented in this encounter Administered Medications Inactive Administered Medications - up to 3 most recent administrations Medication Order MAR Action Action Date Dose Rate Site balanced salt solution ophthalmic Given 06/04/2018 11:25 AM CDT 15 mL irrigation (BSS) As needed, Starting on 06/04/18 at 1125, Intra-Op chondroitin sulfate-sodium hyaluronate Given 06/04/2018 11:26 AM CDT 1 kit intraocular injection (DUOVISC) As needed, Starting on Mon06/04/18 at 1126, Intra-Op cyclopentolate-phenylephrine in hypromellose Given 10:27 AM CDT 1 drop 0.125-1.25 % ophthalmic solution 1 drop (DILATING DROPS) 1 drop, right eye, Once, On Mon06/04/18 at 1030, For 1 dose, Pre-Op, Apply over cornea in operative eye, towards superior fornix and towards inferior fornix. Apply at least 30 minutes prior to case EPINEPHrine 0.3 mg in balanced salt solution Given 11:26 AM CDT 500 mL plus 500 mL ophthalmic irrigation As needed, Starting on Mon06/04/18 at 1126, Intra-Op lidocaine (PF) 10 mg/mL (1 %) injection Given 06/04/2018 11:26 A M CDT 5 mL (XYLOCAINE) As needed, Starting on Mon06/04/18 at 1126, Intra-Op moxifloxacin 0.5 % ophthalmic solution 1 Given 06/04/2018 11:26 AM CDT 1 drop drop (VIGAMOX) 1 drop, right eye, Once, On Mon06/04/18 at 1030, For 1 dose, Intra-Op, 0.1 cubic centimeters intracamerally., Indications: prevent endophthalmitis povidone-iodine 5 % ophthalmic Given 06/04/2018 11:26 AM CDT 30 mL Right Eye solution (BETADINE) As needed, Starting on Mon06/04/18 at 1126, [...] maintain patency tetracaine (PF) 0.5 % ophthalmic Given 06/04/2018 11:26 AM CDT 2 drops Right Eye solution (ALTACAINE) As needed, Starting on Mon06/04/18 at 1126, Intra-Op tetracaine (PF) 0.5 % ophthalmic solution 1 [...] povidone-iodine 5 % ophthalmic solution (BETADINE) (CANCELED) 1126 (Given - Provider: Vane Oliver R.N.) As [...] (PF) 0.5 % ophthalmic solution (ALTACAINE) (CANCELED) 1126 (Given - Provider: Vane Oliver R.N.) As needed, Starting on Mon06/04/18 at 1126, Intra-Op documented in this encounter
--- OUTSIDE RECORDS SUMMARY | 2022-06-30 13:46 | XMS_ITS | Encounter Summary ---
:1940 Author Organization [facility] Address [address] [place] [address] Care Team Providers Name Role Phone Unavailable Primary Care Provider Unavailable Encounter Details Date Type Department Care Team Description 06/13/2018 Anesthesia Event [facility] MAIN OR Emelia Martinez APRN, CONTRACT MANAGER [address] [place] [address] 701 [facility] Licha Haro M.D. [address] [place] [address] [place] [address] Anesthesia Record Procedure Summary Procedure Name Responsible Anesthesia Start Anesthesia Stop Anesthesiologist Time Time EXTRACTION CATARACT Emelia Martinez APRN, CONTRACT MANAGER 06/13/18 1148 1216 WITH INSERTION INTRAOCULAR LENS, LEFT EYE-Topical/Standard lens (Left: Eye) Events Date Time Event Comment 06/13/2018 1148 In Room 1148 An Start Machine/Equipmen t Checked Infection Precautions Foll owed Procedure/Site Verified NPO Sta tus Verified Supine Standard ASA Mon itors Applied 1152 Turnover to Proceduralist 1202 Proc Start 1211 Proc Fin 1212 Turnover to ANE Staff 1212 an stop data 1214 Out of Room 1216 An End I completed my h andoff to the receiving staff during [facility] we 1. Identified the patient 2. Ident ified the responsible provider 3. Revi ewed the pertinent medical history 4. Discu ssed the surgical course 5. Reviewed intra-o p anesthesia management and issues during an esthesia 6. Set expectations for post-procedure period 7. Allowed opportun ity for questions and acknowledgement of understanding. Name Total midazolam PF injection 1 mg/mL 2 mg Agents No agents on file. Blood No blood administrations on file. Lines, Drains, and Airways Type Details Placement Removal Peripheral IV Placement Date: 06/13/18; 06/13/18 1010 by Placement Time: 1010; Kimberli Kerr, Catheter Size: 22 G; R.N. Orientation: Right; Location: Hand; Site Prep: Chlorhexidine (Preferred) (RETIRED) Incision 06/13/18; 1016; Eye; Left; 06/13/18 1016 by 1 1221 by N/A; 06/13/18; 1221 Stefania Quintanilla, R.N. Charley Izquierdo, RHerbertN. documented in this encounter Social History Tobacco Use Types Packs/Day Years Used Date Smoking Tobacco: Never Smokeless Tobacco: Never Alcohol Use Standard Drinks/Week Comments No 0 (1 standard drink = 0.6 oz pure alcoho l) Sex Assigned at Date Recorded Not on file documented as of this encounter OR Notes Anesthesia Postprocedure Evaluation - Emelia Martinez APRN, CRNA - 06/13/2018 1:14 PM CDT Patient: Charla Graham Procedure Summary Date: 06/13/18 Room / Location: [address] 01 1401 / [facility] - GI Anesthesia Start: 1148 Anesthesia Stop: 1216 Procedure: EXTRACTION CATARACT WITH INSERTION INTRAOCULAR LENS, LEFT EYE- Topical/Standard lens (Left Eye) Diagnosis: Cataract Senile Nuclear Sclerosis Left (Cataract Senile Nuclear Sclerosis Left [H25.12]) Surgeon: Mauri Farrell M.D. Responsible Provider: Emelia Martinez APRN, CRNA Anesthesia Type: MAC ASA Status: 2 Anesthesia Type: MAC Last vitals BP (!) 128/109 (06/13/18 1230) Temp 36.5 ??C (06/13/18 1000) Pulse 73 (06/13/18 1240) Resp 16 (06/13/18 1000) SpO2 96 % (06/13/18 1240) Anesthesia Post Evaluation Patient Disposition: monitored unit, expectation for recovery time deferred to receiving unit Cardiovascular status: hemodynamics (HR & BP) acceptable Respiratory status: patent airway with spontaneous effort Temperature: normothermic Oxygen requirements: room air Level of consciousness: awake Pain score: pain adequately controlled and/or at baseline Post Op nausea/vomiting: none Hydration status: euvolemic Anesthesia Preprocedure Evaluation - Emelia Martinez APRN, CRNA - 06/06/2018 3:33 PM CDT Anesthesia Pre-Evaluation Pertinent components of the patient's history including current problem list, medical history, surgical history, family history, social history, medications and allergies were reviewed and updated as appropriate. The patient was examined and the Pre-op diagnosis, planned procedure, and H&P were reviewed and remain unchanged. PROBLEM LIST Relevant Problems ENDO (+) Diabetes Mellitus Type 2 Without Complication (HCC) S/p cataract 06/04/18- MAC OBJECTIVE PHYSICAL EXAMINATION Airway (HEENT) Mallampati: III TM Distance: >3 FB Neck ROM: Full Mouth Opening: >3 cm Cardiovascular Rhythm: Regular Rate: Normal Cardiovascular Assessment: Normal Functional Capacity: >4 METS Pulmonary Pulmonary Assessment: Clear Neurological Neurologic Assessment: Alert Dental Dental Assessment: Lower dentures and upper dentures General / Constitutional Constitutional Assessment: Normal ASSESSMENT / PLAN ANESTHESIA PLAN ASA: 2 Anesthesia Plan: MAC Patient seen and allergies reviewed; anesthesia plan and risks discussed directly with patient / legal guardian, or through an chief engineer's helper; patient evaluated and approved for anesthesia / sedation. The use of blood products not discussed documented in this encounter Plan of Treatment Not on filedocumented as of this encounter Visit Diagnoses Not on filedocumented in this encounter Administered Medications Inactive Administered Medications - up to 3 most recent administrations Medication Order MAR Action Action Date Dose Rate Site midazolam (PF) injection (VERSED) Given 06/13/2018 11:50 AM CDT 2 mg As needed, Starting on Mon06/13/18 at 1150, Anesthesia Intra-op documented in this encounter
--- OUTSIDE RECORDS SUMMARY | 2022-06-30 13:46 | XMS_ITS | Encounter Summary ---
:1940 Author Organization [facility] Address [address] [place] [address] Care Team Providers Name Role Phone Unavailable Primary Care Provider Unavailable Reason for Visit Outpatient (Routine) - Closed Specialty Diagnoses / Procedures Referred By Contact Refer red To Contact Diagnoses Cataract Senile Nuclear Sclerosis Right Mauri Farrell M.D. [address] [phone] Referral ID Status Reason Start Date Expiration Date Visits Requ ested Visits Authorized [id number] Closed 04/20/2018 04/20/2019 1 1 Encounter Details Date Type Department Care Team Description 05/24/2018 Telemedicine Department of General Mauri Farrell easapphirethetic Medical Exam (Primary Dx); Surgery in Harriett Radford M.D. Cataract Senile Nuclear Sclerosis Right [address] [phone] Social History Tobacco Use Types Packs/Day Years Used Date Smoking Tobacco: Never Smokeless Tobacco: Never Alcohol Use Standard Drinks/Week Comments No 0 (1 standard drink = 0.6 oz pure alcoho l) Sex Assigned at Date Recorded Not on file documented as of this encounter Progress Notes Crys Lind RTaco. - 05/24/2018 1:30 PM CDT Surgery Nurse Crab Catcher Anesthesia Risk Assessment: Do you have difficulties lying flat? no Do you have an implanted cardiac device?no Teaching: Preoperative education was done with (x) patient () other: It was confirmed the patient/family member had received the following preoperative education sheets:Checklist For Surgical Patients ([id number]),Surgical Site Infections ([id number]), Speak Up: Antibiotics ([id number]), Smoke Free, Advice for patients and visitors ([id number]), Your Guide to Pain Management ([id number]), Managing Your Pain After Surgery ([id number]) with the [employer] pamphlet ([id number]), Appointments Required Before Your Surgery ([id number]), Cataract Surgery: Required Appointments and Instructions ([id number]), and Preparing for Cataract Surgery Instructions ([id number]). These were reviewed in detail. The patient was instructed to bring the cataract eye kit and their eye drops the day of surgery. In addition, the patient was educated on lifting restrictions of 20 pounds for first week after surgery,using btsy-abq-ffbahqb artificial tears for scratchy dry eyes and keeping dust or other objects out of the eye after surgery. Patient is ready to learn, no apparent learning barriers were identified. Reviewed diagnosis and treatment plan; patient verbalized understanding through teach back. All questions were answered. Patient has contact information and understands the need to call with any questions or concerns. Post op appointments: 1st po with surgeon or physician political science research assistant: (x) made ()TBD documented in this encounter Plan of Treatment Not on filedocumented as of this encounter Visit Diagnoses Diagnosis Preanesthetic Medical Exam - Primary Cataract Senile Nuclear Sclerosis Right documented in this encounter
--- OUTSIDE RECORDS SUMMARY | 2022-06-30 13:46 | XMS_ITS | Encounter Summary ---
:1940 Author Organization [facility] Address [address] [place] [address] Care Team Providers Name Role Phone Unavailable Primary Care Provider Unavailable Reason for Visit Reason Onset Date Comments Return call 05/01/2018 Encounter Details Date Type Department Care Team Description 05/01/2018 Clinical Communication Department of Annalisa Frias Return call Ophthalmology in [place], [place] [phone] [address] [facility] (Work) [place] [address] Social History Tobacco Use Types Packs/Day Years Used Date Smoking Tobacco: Never Smokeless Tobacco: Never Alcohol Use Standard Drinks/Week Comments No 0 (1 standard drink = 0.6 oz pure alcoho l) Sex Assigned at Date Recorded Not on file documented as of this encounter Miscellaneous Notes Telephone Encounter - Soraida Purcell R.N. - 05/01/2018 11:01 AM CDT This patient's daughter was called, and all her questions were answered. Telephone Encounter - Annalisa Frias - 05/01/2018 10:40 AM CDT Patient's daughter, Antonia, left a voice message stating that she and the patient have some questions about her cataract surgery scheduled for 06/04 & 06/13. documented in this encounter Plan of Treatment Not on filedocumented as of this encounter Visit Diagnoses Not on filedocumented in this encounter
--- OUTSIDE RECORDS SUMMARY | 2022-06-30 13:46 | XMS_ITS | Encounter Summary ---
:1940 Author Organization [facility] Address [address] [place] [address] Care Team Providers Name Role Phone Unavailable Primary Care Provider Unavailable Reason for Visit Reason Onset Date Comments Communication 04/26/2018 schedule cataract camilo rgery Encounter Details Date Type Department Care Team Description 04/26/2018 Clinical Department of Emilie Farrell Communication Ophthalmology in Sarbjit Lorenzana ([facility] surgery) [address] [facility] [address] [facility] [address] [place], [place] [phone] Social History Tobacco Use Types Packs/Day Years Used Date Smoking Tobacco: Never Smokeless Tobacco: Never Alcohol Use Standard Drinks/Week Comments No 0 (1 standard drink = 0.6 oz pure alcoho l) Sex Assigned at Date Recorded Not on file documented as of this encounter Miscellaneous Notes Telephone Encounter - Radha Zarate C.O.A. - 04/27/2018 2:51 PM CDT Patient is scheduled 06-04 and 06-13 Telephone Encounter - Soraida Purcell R.N. - 04/26/2018 12:20 PM CDT Forwarding to Radha Zarate, for her review Telephone Encounter - Ema Pino - 04/26/2018 12:13 PM CDT Please call Charla to schedule cataract surgery for after 05/14. Her H & P is scheduled for 05/14 in [place] with her PCP. Phone number confirmed correct. documented in this encounter Plan of Treatment Not on filedocumented as of this encounter Visit Diagnoses Not on filedocumented in this encounter
--- OUTSIDE RECORDS SUMMARY | 2022-06-30 13:46 | XMS_ITS | Encounter Summary ---
:1940 Author Organization [facility] Address [address] [place] [address] Care Team Providers Name Role Phone Unavailable Primary Care Provider Unavailable Encounter Details Date Type Department Care Team Description 04/20/2018 Ancillary Procedure Department of Mauri Farrell Ophthalmology in [place] Lorenzana M[address] [phone] Social History Tobacco Use Types Packs/Day Years Used Date Smoking Tobacco: Never Smokeless Tobacco: Never Alcohol Use Standard Drinks/Week Comments No 0 (1 standard drink = 0.6 oz pure alcoho l) Sex Assigned at Date Recorded Not on file documented as of this encounter Plan of Treatment Not on filedocumented as of this encounter Procedures Procedure Name Priority Date/Time Associated Diagnosis Comme nts OCULAR COHERENCE Routine 04/20/2018 11:24 AM Cataract Senile R esults for this BIOMETRY (OCB) - OU CDT Nuclear Sclerosis pro cedure are in - BOTH EYES Left the results Cataract Senile section. Nuclear Sclerosis Right documented in this encounter Results Ocular Coherence Biometry (OCB) - OU - Both Eyes (04/20/2018 11:24 AM CDT) Specimen (Source) Anatomical Location Collection Method / Collectio n Time Received Time / Laterality Volume Narrative OPHTHALMOLOGY IMAGING EXAM - 04/20/20 18 1:13 PM CDT MODALITY Right Eye The modality was IOL Master. Left Eye The modality was IOL Master. IOL MEASUREMENTS Right Eye IOL Measurements: Axial length was 22.61 mm. K-1 was 43.94 diopters. K1 Caldwell was 75.00 degrees. K-2 was 44.07. K 2 [place]dwell was 165.00 degrees. WTW was 12.00 mm. ACD was 2.96 mm. Lens thicknes s was 5.09 mm. Left Eye IOL Measurements: Axial length was 22.49 mm. K-1 was 43.78 diopters. K1 Caldwell was 111.00 degrees. K-2 was 44.27. K2 [place]dwell was 21.00 degrees. WTW was 12.10 mm. ACD was 2.99 mm. Lens thicknes s was 5.11 mm. Mauri Farrell M.D. OPHTH PHOTOGRAPHY Performing Organization Address City/State/ZIP Code Phon e Number OPHTHALMOLOGY IMAGING EXAM documented in this encounter Visit Diagnoses Not on filedocumented in this encounter
--- OUTSIDE RECORDS SUMMARY | 2022-06-30 13:46 | XMS_ITS | Encounter Summary ---
:1940 Author Organization [facility] Address [address] [place] [address] Care Team Providers Name Role Phone Unavailable Primary Care Provider Unavailable Encounter Details Date Type Department Care Team Description 04/20/2018 Ancillary Procedure Department of Mauri Farrell Ophthalmology in [place] Lorenzana M.D. [address] [phone] Social History Tobacco Use Types Packs/Day Years Used Date Smoking Tobacco: Never Smokeless Tobacco: Never Alcohol Use Standard Drinks/Week Comments No 0 (1 standard drink = 0.6 oz pure alcoho l) Sex Assigned at Date Recorded Not on file documented as of this encounter Plan of Treatment Not on filedocumented as of this encounter Procedures Procedure Name Priority Date/Time Associated Comments Diagnosis CORNEAL TOPOGRAPHY - Routine 04/20/2018 11:23 AM Cataract Ambika le Results for this OU - BOTH EYES CDT Nuclear Sclerosis procedur e are in Left the results Cataract Senile section. Nuclear Sclerosis Right documented in this encounter Results Corneal Topography - OU - Both Eyes (04/20/2018 11:23 AM CDT) Specimen (Source) Anatomical Location Collection Method / Collectio n Time Received Time / Laterality Volume Narrative OPHTHALMOLOGY IMAGING EXAM - 04/20/20 18 1:13 PM CDT Topography device used is Pentacam. Right Eye Findings include normal observations. Left Eye Findings include normal observations. Mauri Farrell M.D. OPHKEITH OTHER Performing Organization Address City/State/ZIP Code Phon e Number OPHTHALMOLOGY IMAGING EXAM documented in this encounter Visit Diagnoses Not on filedocumented in this encounter
--- OUTSIDE RECORDS SUMMARY | 2022-06-30 13:46 | XMS_ITS | Encounter Summary ---
:1940 Author Organization [facility] Address [address] [place] [address] Care Team Providers Name Role Phone Unavailable Primary Care Provider Unavailable Encounter Details Date Type Department Care Team Description 06/04/2018 Anesthesia Event [facility] MAIN OR Guilherme Jean APRN, SOUND PRINTER [address] [place] [address] [address] RACHELLicha Loza M.D. [address] [place] [address] [place] [address] Anesthesia Record Procedure Summary Procedure Name Responsible Anesthesia Start Anesthesia Stop Anesthesiologist Time Time EXTRACTION CATARACT Guilherme Jean APRN, 06/04/18 1117 1 1141 WITH INSERTION SOUND PRINTER INTRAOCULAR LENS, right eye - Topical/Standard Lens (Right: Eye) Events Date Time Event Comment 06/04/2018 1115 In Room 1117 An Start Machine/Equipmen t Checked Infection Precautions Foll owed Procedure/Site Verified NPO Sta tus Verified Supine Standard ASA Mon itors Applied 1119 Turnover to Proceduralist 1124 Proc Start 1136 Proc Fin 1136 Turnover to ANE Staff 1136 an stop data 1138 Out of Room 1141 An End I completed my h andoff to the receiving staff during [facility] we 1. Identified the patient 2. Ident ified the responsible provider 3. Revi ewed the pertinent medical history 4. Discu ssed the surgical course 5. Reviewed intra-o p anesthesia management and issues during an esthesia 6. Set expectations for post-procedure period 7. Allowed opportun ity for questions and acknowledgement of understanding. 1142 Name Total midazolam PF injection 1 mg/mL 2 mg Agents No agents on file. Blood No blood administrations on file. Lines, Drains, and Airways Type Details Placement Removal Peripheral IV Placement Date: 06/04/18; 06/04/18 1034 by 06/04 1149 by Placement Time: 1034; Fay Randhawa R.N. Meac ham, Anne M RRafal Catheter Size: 22 G; Orientation: Left; Location: Wrist; Site Prep: Chlorhexidine (Preferred); Technique: Anatomical landmarks; Insertion Attempts: 1; Removal Date: 06/04/18; Removal Time: 1149 documented in this encounter Social History Tobacco Use Types Packs/Day Years Used Date Smoking Tobacco: Never Smokeless Tobacco: Never Alcohol Use Standard Drinks/Week Comments No 0 (1 standard drink = 0.6 oz pure alcoho l) Sex Assigned at Date Recorded Not on file documented as of this encounter OR Notes Anesthesia Postprocedure Evaluation - Guilherme Jean CRNA RRafal - 06/04/2018 11:42 AM CDT Patient: Charla Graham Procedure Summary Date: 06/04/18 Room / Location: [address] / [facility] - GI Anesthesia Start: 1117 Anesthesia Stop: 114 Procedure: EXTRACTION CATARACT WITH INSERTION INTRAOCULAR LENS, right eye - Topical/Standard Lens (Right Eye) Diagnosis: Cataract Senile Nuclear Sclerosis Right (Cataract Senile Nuclear Sclerosis Right [H25.11]) Surgeon: Mauri Farrell M.D. Responsible Provider: Guilherme Jean CRNA RHerbertNHerbert Anesthesia Type: MAC ASA Status: 2 Anesthesia Type: MAC Last vitals BP (!) 126/52 (06/04/18 1029) Temp 36.6 ??C (06/04/18 1029) Pulse See nursing note Resp 16 (06/04/18 1029) SpO2 95 % (06/04/18 1029) Anesthesia Post Evaluation Patient Disposition: dismissal Cardiovascular status: hemodynamics (HR & BP) acceptable Respiratory status: patent airway with spontaneous effort Temperature: normothermic Oxygen requirements: room air Level of consciousness: awake Pain score: pain adequately controlled and/or at baseline Post Op nausea/vomiting: none Hydration status: euvolemic Anesthesia Preprocedure Evaluation - Guilherme eJan CRNA, RHerbertN. - 05/31/2018 12:26 PM CDT Anesthesia Pre-Evaluation Pertinent components of the patient's history including current problem list, medical history, surgical history, family history, social history, medications and allergies were reviewed and updated as appropriate. The patient was examined and the Pre-op diagnosis, planned procedure, and H&P were reviewed and remain unchanged. PROBLEM LIST Relevant Problems ENDO (+) Diabetes Mellitus Type 2 Without Complication (HCC) OBJECTIVE PHYSICAL EXAMINATION Airway (HEENT) Mallampati: II TM Distance: >3 FB Neck ROM: Full Cardiovascular Rhythm: Regular Rate: Normal Cardiovascular Assessment: Normal Functional Capacity: >4 METS Pulmonary Pulmonary Assessment: Diminished Neurological Neurologic Assessment: Alert Dental Dental Assessment: Dentition intact General / Constitutional Constitutional Assessment: Normal ASSESSMENT / PLAN ANESTHESIA PLAN ASA: 2 Anesthesia Plan: MAC Patient seen and allergies reviewed; anesthesia plan and risks discussed directly with patient / legal guardian, or through an japanese interpreter; patient evaluated and approved for anesthesia / sedation. The use of blood products not discussed documented in this encounter Plan of Treatment Not on filedocumented as of this encounter Visit Diagnoses Not on filedocumented in this encounter Administered Medications Inactive Administered Medications - up to 3 most recent administrations Medication Order MAR Action Action Date Dose Rate Site midazolam (PF) injection (VERSED) Given 06/04/2018 11:16 AM CDT 2 mg As needed, Starting on 06/04/18 at 1116, Anesthesia Intra-op documented in this encounter
--- OUTSIDE RECORDS SUMMARY | 2022-06-30 13:46 | XMS_ITS | Encounter Summary ---
:1940 Author Organization [facility] Address [address] [place] [address] Care Team Providers Name Role Phone Unavailable Primary Care Provider Unavailable Encounter Details Date Type Department Care Team Description 06/13/2018 Surgery [facility] MAIN OR Mauri Farrell, EXTRACTION CATARACT [address] [place] [address] [address] Sort[address] INTRAOCULAR LENS, LEFT [phone] [place] EYE-Topical[facility] [phone] lens [phone] (Wo rk) Social History Tobacco Use Types Packs/Day Years Used Date Smoking Tobacco: Never Smokeless Tobacco: Never Alcohol Use Standard Drinks/Week Comments No 0 (1 standard drink = 0.6 oz pure alcoho l) Sex Assigned at Date Recorded Not on file documented as of this encounter Last Filed Vital Signs Vital Sign Reading Time Taken Comments Blood Pressure 121/61 06/13/2018 10:00 AM CDT Pulse - - Temperature 36.5 ??C (97.7 ??F) 06/13/2018 10:00 AM CDT Respiratory Rate 16 06/13/2018 10:00 AM CDT Oxygen Saturation 96% 06/13/2018 10:00 AM CDT Inhaled Oxygen Concentration - - Weight - - Height 155.7 cm (5' 1.3) 06/13/2018 10:00 AM CDT Body Mass Index - - documented in this encounter Discharge Instructions Discharge InstructionsCharley Izquierdo RHerbertN. - 06/13/2018 12:23 PM CDT Images from [...] available that you can reach by calling [phone]. If you had anesthesia or sedation, do not drive for 24 to 48 hours. Follow-up appointment (bring bag with eye drops) Your surgeon is Dr. Farrell - [phone] (office) - [phone] (cell) documented in this encounter Medications at [...] Implant Name Type Inv. Item Serial No. Trash Hauler Lot No. LRB No. Used Action LENS [facility] [id number] ANT +26.0D - [id number] - [id number] Ocular Lens LENS TCN [id number] ANT +26.0D [id number] [employer] Left 1 Implanted Mauri [...] Implant Name Type Inv. Item Serial No. Trash Hauler Lot No. LRB No. Used Action LENS TCN [id number] ANT +26.0D - [id number] - [id number] Ocular Lens LENS TCN [id number] ANT +26.0D [id number] [employer] Left 1 Implanted Mauri Farrell M.D. documented in this encounter Plan of Treatment Not on filedocumented as of this encounter Procedures Procedure Name Priority Date/Time Associated Diagnosis Comme nts EXTRACTION CATARACT WITH 06/13/2018 11:48 AM Cataract Senile INSERTION INTRAOCULAR CDT Nuclear Sclerosis L eft LENS documented in this encounter Visit Diagnoses Diagnosis Cataract Senile Nuclear Sclerosis Left - Primary Cataract Senile Nuclear Sclerosis Left documented in this encounter Admitting Diagnoses Diagnosis Cataract Senile Nuclear Sclerosis Left documented in this encounter Administered Medications Inactive Administered Medications - up to 3 most recent administrations Medication Order MAR Action Action Date Dose Rate Site balanced salt solution ophthalmic Given 06/13/2018 12:03 PM CDT 15 mL irrigation (BSS) As needed, Starting on Mon06/13/18 at 1203, Intra-Op chondroitin sulfate-sodium hyaluronate Given 06/13/2018 12:03 PM CDT 1 kit intraocular injection (DUOVISC) As needed, Starting on Mon06/13/18 at 1203, Intra-Op cyclopentolate-phenylephrine in hypromellose Given 9:58 AM CDT 1 drop 0.125-1.25 % ophthalmic solution 1 drop (DILATING DROPS) 1 drop, left eye, Once, On Mon06/13/18 at 1000, For 1 dose, Pre-Op, Apply over cornea in operative eye, towards superior fornix and towards inferior fornix. Apply at least 30 minutes prior to case EPINEPHrine 0.3 mg in balanced salt solution Given 12:03 PM CDT 500 mL plus 500 mL ophthalmic irrigation As needed, Starting on Mon06/13/18 at 1203, Intra-Op lidocaine (PF) 10 mg/mL (1 %) injection Given 06/13/2018 12:03 P M CDT 1 mL (XYLOCAINE) As needed, Starting on Mon06/13/18 at 1203, Intra-Op moxifloxacin 0.5 % ophthalmic solution 1 Given 06/13/2018 12:03 PM CDT 1 drop drop (VIGAMOX) 1 drop, left eye, Once, On Mon06/13/18 at 1000, For 1 dose, Intra-Op, 0.1 cubic centimeters intracamerally., Indications: prevent endophthalmitis povidone-iodine 5 % ophthalmic solution Given 06/13/2018 12:03 P M CDT 30 mL (BETADINE) As needed, Starting on Mon06/13/18 at 1203, Intra-Op sodium chloride injection 10 mL Given 06/13/2018 [...] patency tetracaine (PF) 0.5 % ophthalmic solution Given 06/13/2018 12:04 PM CDT 1 drop (ALTACAINE) As needed, Starting on Mon06/13/18 at 1204, Intra-Op tetracaine (PF) 0.5 % ophthalmic solution [...] ophthalmic solution 1 drop (DILATING DROPS) (COMPLETED) 0930 ( Given - Provider: Kimberli Kerr R.N.) [...] ophthalmic solution 1 drop (ALTACAINE) (CO MPLETED) 0902 (Given - Provider: Kimberli J Bjurquist, R.N.) 1 drop, left eye, Every 5 [...] (CANCELED) 1203 (Given - Provider: Stefania Quintanilla R.N.) As needed, Starting on Mon06/13/18 at 1203, Intra-Op sodium chloride injection 10 mL 0959 (Given - Provider: Kimberli Kerr R.NHerbert) 10 mL, intravenous, As needed, line care [...]
--- OUTSIDE RECORDS SUMMARY | 2022-06-30 13:46 | XMS_ITS | Encounter Summary ---
:1940 Author Organization [facility] Address [address] [place] [address] Care Team Providers Name Role Phone Unavailable Primary Care Provider Unavailable Reason for Referral Outpatient (Routine) - Closed Specialty Diagnoses / Procedures Referred By Contact Refer red To Contact Ophthalmology Diagnoses Age Related Nuclear Cataract Bilateral Jam Perez O.D. [facility] Region [address] [place] [address] Referral ID Status Reason Start Date Expiration Date Visits Requ ested Visits Authorized [id number] Closed 04/09/2018 04/09/2019 1 1 Reason for Visit Reason Comments Diabetic Eye Exam Appointment Request (Routine) - Closed Specialty Diagnoses / Procedures Referred By Contact Refer red To Contact Ophthalmology Referral ID Status Reason Start Date Expiration Date Visits Requ ested Visits Authorized [id number] Closed 03/16/2018 03/16/2019 1 Encounter Details Date Type Department Care Team Description 04/09/2018 Comprehensive Visit Department of Mona Perez ateike Nuclear Cataract Bilateral (Primary Dx); Ophthalmology in [facility] Jam Lorenzana O.D. Hyperop ia Bilateral; [place], [place] Presbyopia [address] [place] [phone] Social History Tobacco Use Types Packs/Day Years Used Date Smoking Tobacco: Never Smokeless Tobacco: Never Alcohol Use Standard Drinks/Week Comments Defer 0 (1 standard drink = 0.6 oz pure alcoho l) Sex Assigned at Date Recorded Not on file documented as of this encounter Progress Notes Jam Perez O.D. - 04/09/2018 1:30 PM CDT Charla Graham was seen today for Diabetic Eye Exam #1 Age Related Nuclear Cataract Bilateral #2 Hyperopia Bilateral #3 Presbyopia Impression: Diabetes without diabetic retinopathy. Visually significant cataracts causing shift in refractive error in decrease of overall vision. She wears mainly multifocal soft contact lenses but her brand was discontinued. Plan: Patient will schedule for cataract evaluation and surgery. She was given a prescription and get 1 box of Acuvue Oasys for presbyopia contact lenses to wear until she can have surgery. documented in this encounter Plan of Treatment Scheduled Referrals Name Type Priority Associated Order Schedule Diagnoses Ophthalmology - Outpatient Referral Routine Age Related Nuclea r Expected: Cataract consult Cataract Bilateral 04/09 (clinic) (Approximate), Expires: 04/09/2021 documented as of this encounter Visit Diagnoses Diagnosis Age Related Nuclear Cataract Bilateral - Primary Hyperopia Bilateral Presbyopia documented in this encounter
--- OUTSIDE RECORDS SUMMARY | 2022-06-30 13:46 | XMS_ITS | Encounter Summary ---
:1940 Author Organization [facility] Address [address] [place] [address] Care Team Providers Name Role Phone Unavailable Primary Care Provider Unavailable Reason for Visit Reason Comments Post-op Follow-up Encounter Details Date Type Department Care Team Description 06/05/2018 Office Visit Department of Mauri Farrell Cataract S enile Ophthalmology in [place] Lorenzana M.D. Nuclear Sclerosis [place], [place] [address] [place] [address] Left (Primary Dx) [address] [place] [phone] Social History Tobacco Use Types Packs/Day Years Used Date Smoking Tobacco: Never Smokeless Tobacco: Never Alcohol Use Standard Drinks/Week Comments No 0 (1 standard drink = 0.6 oz pure alcoho l) Sex Assigned at Date Recorded Not on file documented as of this encounter Progress Notes Mauri Farrell M.D. - 06/05/2018 3:45 PM CDT Charla Graham was seen today for Post-op Follow-up #1 Cataract Senile Nuclear Sclerosis Left History of present illness: The patient is 1 day postop cataract surgery of the right eye. Patient is taking the postop meds per protocol. The patient is having no discomfort. The vision is good . Slit-lamp examination right: Conjunctivae and sclerae are quiet, cornea shows +1 edema and trace punctate staining of the epithelium. The anterior chamber is shows +1 cell and flare and the implant is well-centered. The incisionsare intact and there are no leaks. The left eye shows evidence of moderate cataract formation. Impression: 1. POD #1 cataract surgery of the right eye-doing well. 2. Visually significant cataractof the left eye. Plan: 1. Postop care per protocol for the right eye. 2. A scan interpreted for the left eye. 3. Proceed with cataract surgery and lens implantation of the left eye as scheduled. documented in this encounter Plan of Treatment Not on filedocumented as of this encounter Visit Diagnoses Diagnosis Cataract Senile Nuclear Sclerosis Left - Primary documented in this encounter
--- OUTSIDE RECORDS SUMMARY | 2022-06-30 13:47 | XMS_ITS | Encounter Summary ---
:1940 Author Organization [facility] Address [address] [place] [address] Care Team Providers Name Role Phone John Willingham MD Primary Care Provider Reason for Visit Reason Onset Date Comments poss UTI 05/12/2022 Encounter Details Date Type Department Care Team Description 05/12/2022 Telephone [place] John Willingham MD poss UTI [address] [place], [place] [address] [place], [place] [phone] (Wo rk) Social History Tobacco Use Types Packs/Day Years Used Date Smoking Tobacco: Never Smokeless Tobacco: Never Alcohol Use Standard Drinks/Week Comments Not Currently 0 (1 standard drink = 0.6 oz pure alcoho l) Education Answer Date Recorded What is the highest level of school you have completed or 10 th grade 11/05/2021 the highest degree you have received? Sex Assigned at Date Recorded Not on file documented as of this encounter Miscellaneous Notes Telephone Encounter - Nancy Reyes RN - 05/12/2022 4:12 PM CDT Spoke with PCP who requests a [id number]-dyua as patient had recent UTI 3 months prior and never completed return visit. Daughter will hand picker hat and urine container for a sample, will bring the sample in to the clinic tomorrow morning (by 0930) and appointment has been made. Was advised the sample is only viable for 6 hours so it needs to be brought into the clinic while lab staff are available. Daughter understands, but unsure if they will be able to talk patient in to coming. Telephone Encounter - Danielle Viral - 05/12/2022 10:22 AM CDT Pt's daughter Maia called as there is a concern of a UTI for the Pt. She was wondering if they could just bring a urine sample in. I explained that due to Pt's age she is out of our protocol range andwould need an OV. Daughter understood, but is concerned financially with a doctor visit. She is wondering if there are any OTC tests available or what her options are. Please call Maia at [phone] advise. documented in this encounter Plan of Treatment Not on filedocumented as of this encounter Visit Diagnoses Not on filedocumented in this encounter Care Teams Bioinformatics Computer Scientist Relationship Specialty Start Date End Date John Willingham MD PCP - General 05/26/[address] [place] [address] documented as of this encounter
--- OUTSIDE RECORDS SUMMARY | 2022-06-30 13:47 | XMS_ITS | Encounter Summary ---
:1940 Author Organization [facility] Address [address] [place] [address] Care Team Providers Name Role Phone None, Pcp Primary Care Provider Unavailable Reason for Visit Reason Onset Date Comments uti sx 01/24/2022 Encounter Details Date Type Department Care Team Description 01/24/2022 Telephone Lj Smith None, Pcp uti sx [address] [place], [place] [address] [place] [address] Social History Tobacco Use Types Packs/Day Years [...] this encounter Miscellaneous Notes Telephone Encounter - Dyan Romero RN - 01/24/2022 2:59 PM CDT Noted. Telephone Encounter - oJhn Willingham MD - 01/24/2022 2:45 PM CDT I spoke with patient's daughter. Prescribing macrobid as this was only outpatient antibiotic that covered her last UTI which was ESBL E. Coli. Recommended to be seen in ER or clinic if any worsening. She has appointment here in 3 days for follow up. Telephone Encounter - Dyan Romero RN - 01/24/2022 2:03 PM CDT Patient came in for labs, please see Mayra for results of urine. She is scheduled 01/27/22 for an appointment. Telephone Encounter - Danielle Stratton - 01/24/2022 1:44 PM CDT Pt here for lab appt. Please advise on further scheduling. Telephone Encounter - Dyan Romero RN - 01/24/2022 9:52 AM CDT Patient unable to come inf or appointment today. Please place orders for labs she will come inf or them this afternoon. They will schedule an appointment soon for follow up. Telephone Encounter - John Willingham MD - 01/24/2022 8:51 AM CDT She is due for a follow up on her elevated liver enzymes. I will order blood and urine testing. It is recommended to see the patient but if she does not want to be seen, I will order the labs. Telephone Encounter - Dyan Romero RN - 01/24/2022 8:41 AM CDT Patient does not qualify for an RN UTI protocol. Would you place orders to have this patients daughter bring in a urine sample for evaluation or would you like to evaluate patient in clinic? Telephone Encounter - Elinor Dawson - 01/24/2022 8:24 AM CDT Pt's daughter Maia is requesting to see if the pt is able to bring in a urine sample without seeingthe Provider. I informed her that for the uti protocol it is usually only through a certain age. But, she said that we have told her before that she can just bring a sample in. She is having symptomsof irritability. Please call pt's daughter back at [phone]. Thanks. documented in this encounter Plan of Treatment Not on filedocumented as of this encounter Results Liver panel (01/24/2022 1:54 PM CDT) athologist Signature Total Protein 7.7 6.3 - 8.2 01/25/2022 [facility] g/dL 1:28 PM [facility] Albumin, Serum 4.5 3.5 - 5.0 01/25/2022 [facility] g/dL 1:28 PM [facility] Total Bilirubin <0.7 0.1 - 1.0 01/25/2022 [facility] mg/dL 1:28 PM [facility] Bilirubin, <0.1 0.0 - 0.3 01/25/2022 [place] mg/dL 1:28 PM [facility] AST 41 8 - 43 U/L 01/25/2022 [place] 1:28 PM [facility] Alkaline 52 38 - 128 01/25/2022 [place] Phosphatase U/L 1:28 PM [facility] ALT (SGPT) 27 0 - 34 U/L 01/25/2022 [place] 1:28 PM [facility] Specimen Anatomical Collection Method Collection Time Receive d Time (Source) Location / / Volume Laterality Blood (Blood, 01/24/2022 1:54 PM 01/26/20 22 Venous) CDT 12:43 PM CDT John Willingham MD LAB BLOOD ORDERABLES Performing Organization Address City/State/ZIP Code Phon e Number [facility] [address] [place] [address] (ABNORMAL) Urinalysis with reflex microscopic (01/24/2022 1:54 PM CDT) Patholo gist Method Time Signature Type CLEAN CATCH 01/24/2022 [facility] [place] 2:04 PM [place] Color, Urine YELLOW YELLOW 01/24/2022 [facility] 2:04 PM [place] Clarity, CLEAR CLEAR 01/24/2022 [facility] [place] Urine 2:04 PM [place] Glucose, 100 (A) NEGATIVE 01/24/2022 [facility] [place] Urine mg/dL 2:04 PM [place] Bilirubin, NEGATIVE NEGATIVE 01/24/2022 [facility] [place] Urine 2:04 PM [place] Ketones, NEGATIVE NEGATIVE 01/24/2022 [facility] [place] Urine mg/dL 2:04 PM [place] Specific 1.025 1.000 01/24/2022 [facility] Ewing, ->=1.030 2:04 PM CDT [place] Urine Blood, Urine MODERATE (A) NEGATIVE 01/24/2022 [facility] [place] 2:04 PM [place] pH, Urine 5.0 5.0 - 7.0 01/24/2022 [facility] [place] 2:04 PM [place] Protein, 100 (A) NEGATIVE-TRA 01/24/2022 [facility] [place] Urine CE mg/dL 2:04 PM [place] Urobilinogen, 0.2 0.2 - 1.0 01/24/2022 [facility] [place] Urine E.U./dL 2:04 PM [facility]T [place] Nitrite, POSITIVE (A) NEGATIVE 01/24/2022 [facility] [place] Urine 2:04 PM [place] [place] Leukocytes, LARGE (A) NEGATIVE 01/24/2022 [facility] [place] Urine 2:04 PM [place] [place] Specimen Anatomical Collection Method Collection Time Receive d Time (Source) Location / / Volume Laterality Urine (Urine, 01/24/2022 1:54 PM 01/25/20 1:57 Clean Catch) CDT PM CDT John Willingham MD LAB URINE ORDERABLES Performing Organization Address City/State/ZIP Code Phon e Number [facility] [address] [place] [address] (ABNORMAL) Urine culture (01/24/2022 1:45 PM CDT) [facility] Method Time Signature Urine Culture Escherichia coli 01/26/2022 [facility] >100,000 cfu/ml 8:16 AM CDT [facility] Specimen Anatomical Collection Method Collection Time Receive d Time (Source) Location / / Volume Laterality Urine (Urine, 01/24/2022 1:45 PM 01/26/20 22 Clean Catch) CDT 11:58 AM CDT Comment: URINE Narrative [facility] - 01/12 8:17 AM CDT Patient does not have an Amoxicillin or PCN allergy Organism Antibiotic Method Susceptibility Escherichia coli Ampicillin <=8 mcg/mL: Magali ceptible Escherichia coli Ampicillin/Sulbactam <=8/4 mcg/ mL: Susceptible Escherichia coli Cefazolin <=2 mcg/mL: Magali ceptible Escherichia coli Ciprofloxacin <=0.25 mcg/mL: Susceptible Escherichia coli Gentamicin <=4 mcg/mL: Magali ceptible Escherichia coli Levofloxacin <=0.5 mcg/mL: S usceptible Escherichia coli Nitrofurantoin <=32 mcg/mL: [place]ite[place] sceptible Escherichia coli Trimeth/Sulfa <=2/38 mcg/mL: Susceptible John Willingham MD LAB MICROBIOLOGY - GENERAL O RDERABLES Performing Organization Address City/State/ZIP Code Phon e Number [facility] [address] [place] [phone] documented in this encounter Visit Diagnoses Diagnosis Elevated liver enzymes - Primary Other nonspecific abnormal serum enzyme levels Bladder irritability Other specified disorder of bladder Elevated liver enzymes Other nonspecific abnormal serum enzyme levels Bladder irritability Other specified disorder of bladder documented in this encounter Care Teams Oleo Hasher And Renderer Relationship Specialty Start Date End Date None, Pcp PCP - General Community Fundraiser 11/02/21 05/25/22 [address] [place] [address] documented as of this encounter
--- OUTSIDE RECORDS SUMMARY | 2022-06-30 13:47 | XMS_ITS | Encounter Summary ---
:1940 Author Organization [facility] Address [address] [place] [address] Care Team Providers Name Role Phone None, Pcp Primary Care Provider Unavailable Encounter Details Date Type Department Care Team Description 01/24/2022 Orders Only Lj Smith John Willingham, Cystitis with [address] [facility] hematuria (Primary Dx) Lj Smith [place] [address] [place] [phone] CLARIBEL Culp [phone] Social History Tobacco Use Types Packs/Day Years [...] Name Priority Date/Time Associated Diagnosis Comme nts ADD-ON TEST REQUEST Routine 01/24/2022 2:16 PM Cystitis with R esults for this CDT hematuria procedure are i n the results section. ADD-ON TEST REQUEST Routine 01/24/2022 2:07 PM Cystitis with R esults for this CDT hematuria procedure are i n the results section. documented in this encounter Results Add-On Test Request (01/24/2022 2:16 PM CDT) [facility] Method Time Signature Add-on Testing SEE BELOW 01/24/2022 [place] 2:25 PM [facility] Specimen Anatomical Collection Method Collection Time Receive d Time (Source) Location / / Volume Laterality 01/24/2022 2:16 PM 2 2:16 CDT PM CDT John Willingham MD LAB BLOOD ORDERABLES Performing Organization Address City/State/ZIP Code Phon e Number [facility] [address] [place] [phone] Add-On Test Request (01/24/2022 2:07 PM CDT) [facility] gist Method Time Signature Add-on Testing SEE BELOW 01/24/2022 [place] 2:17 PM CDT [facility] Specimen Anatomical Collection Method Collection Time Receive d Time (Source) Location / / Volume Laterality 01/24/2022 2:07 PM 2 2:07 CDT PM CDT John Willingham MD LAB BLOOD ORDERABLES Performing Organization Address City/[facility] Code Phon e Number [facility] [address] [place] [phone] documented in this encounter Visit Diagnoses Diagnosis Cystitis with hematuria - Primary Unspecified cystitis documented in this encounter Care Teams [place] Door Assembler Relationship Specialty Start Date End Date None, Pcp PCP - General Pharmacometrician 11/02/21 05/25/22 [address] [place] [address] documented as of this encounter
--- OUTSIDE RECORDS SUMMARY | 2022-06-30 13:47 | XMS_ITS | Encounter Summary ---
:1940 Author Organization [facility] Address [address] [place] [address] Care Team Providers Name Role Phone John Lee MD Primary Care Provider Reason for Visit Reason Comments UTI On-going UTI Encounter Details Date Type Department Care Team Description 05/13/2022 Office Visit John Casarez, Cystitis (Primary Dx); [address] [facility] 20 Recurrent UTI; CLARIBEL Ceron [address] [place] Urgency of urination; [address] CLARIBEL Ceron Frequency of urination [phone] Social History Tobacco Use Types Packs/Day Years [...] Sign Reading Time Taken Comments Blood Pressure 100/60 05/13/2022 9:28 AM CDT Pulse 78 05/13/2022 9:28 AM CDT Temperature 36.8 ??C (98.2 ??F) 05/13/2022 9:28 AM CDT Respiratory Rate 16 05/13/2022 9:28 AM CDT Oxygen Saturation 97% 05/13/2022 9:28 AM CDT Inhaled Oxygen Concentration - - Weight 56.7 kg (124 lb 14.4 oz) 05/13/2022 9:28 AM CDT Height - - Body Mass Index 23.1 11/05/2021 10:48 AM CDT documented in this encounter Patient Instructions Patient InstructionsCharshalini Lee MD - 05/13/2022 9:00 AM CDT Take Keflex 4 times per day for 7 days. Then switch to Keflex 250 mg once daily for 1 year to prevent UTI. If your urinary symptoms are not improved after the initial 7 day prescription, let me know. If urinary symptoms are better, but still feeling fatigued, poor sleep, etc, return to clinic. documented in this encounter Progress Notes John Lee MD - 05/13/2022 9:00 AM CDT Subjective Patient ID: Charla Grahma is a 81 y.o. female. Chief Complaint Patient presents with ??? UTI On-going UTI HPI Patient here for ongoing fatigue and urinary frequency. She has history of recurrent UTI's and did not follow up after last UTI nor did she start prophylactic antibiotic that was ordered after her lastUTI. She states she has been getting up to urinate up to 5-6 times per night, and feels very tired duringthe day. Denies nausea, fevers, chills, flank pain, hematuria. Blood sugar has been around 100s, once in a while is around 200-300. The following portions of the patient's chart were reviewed in this encounter and updated as appropriate: Tobacco Allergies Meds Med Hx Surg Hx OB Status Fam Hx Soc Hx ROS ROS done as noted in HPI Objective Visit Vitals BP 100/60 (BP Location: Right arm, Patient Position: Sitting) Pulse 78 Temp 36.8 ??C (98.2 ??F) (Temporal) Resp 16 Wt 56.7 kg (124 lb 14.4 oz) SpO2 97% BMI 23.10 kg/m?? OB Status Postmenopausal Smoking Status Never Smoker BSA 1.57 m?? Physical Exam Vitals reviewed. Abdominal: Palpations: Abdomen is soft. Tenderness: There is no abdominal tenderness. There is no right CVA tenderness, left CVA tendernessor guarding. Neurological: General: No focal deficit present. Mental Status: She is alert and oriented to person, place, and time. Recent Results (from the past 168 hour(s)) Urinalysis with reflex microscopic (lab staff release/collect) Collection Time: 05/13/22 10:00 AM Result Value Ref Range Type COLLECTION HAT Color, Urine YELLOW YELLOW Clarity, Urine CLOUDY (A) CLEAR Glucose, Urine NEGATIVE NEGATIVE mg/dL Bilirubin, Urine NEGATIVE NEGATIVE Ketones, Urine NEGATIVE NEGATIVE mg/dL Specific [place], Urine 1.010 1.000 ->=1.030 Blood, Urine TRACE (A) NEGATIVE pH, Urine 5.5 5.0 - 7.0 Protein, Urine TRACE NEGATIVE-TRACE mg/dL Urobilinogen, Urine 0.2 0.2 - 1.0 E.U./dL Nitrite, Urine POSITIVE (A) NEGATIVE Leukocytes, Urine LARGE (A) NEGATIVE Urinalysis-Microscopic Exam Collection Time: 05/13/22 10:00 AM Result Value Ref Range Casts, urine NONE SEEN 0-2 Hyaline /lpf Significant casts, urine NONE SEEN None Seen /lpf RBC, Urine 0-3 0 - 3 /hpf WBC, Urine 51-100 (A) /hpf Squamous Epithelial, Urine FEW Few /lpf Trans Epithelial, Urine NONE SEEN 0 - 3 /hpf Renal Tubular Cells, Urine NONE SEEN 0 - 1 /hpf Bacteria, Urine 2+ (A) None Seen - Few /hpf Miscellaneous, urine SEE BELOW Urine culture Collection Time: 05/13/22 10:00 AM Specimen: Urine, Collection Hat URINE Result Value Ref Range Urine Culture Escherichia coli ESBL >100,000 cfu/ml (A) Susceptibility Escherichia coli ESBL - (no method available) Ampicillin >16 Resistant mcg/mL Ampicillin/Sulbactam <=8/4 Susceptible mcg/mL Cefazolin >16 Resistant mcg/mL Cefepime >16 Resistant mcg/mL Ceftriaxone* >2 Resistant mcg/mL * ESBL Ciprofloxacin >2 Resistant mcg/mL Gentamicin <=4 Susceptible mcg/mL Levofloxacin >4 Resistant mcg/mL Nitrofurantoin <=32 Susceptible mcg/mL Trimeth/Sulfa >2/38 Resistant mcg/mL Add-On Test Request Collection Time: 05/13/22 10:07 AM Result Value Ref Range Add-on Testing SEE BELOW Assessment Diagnosis Plan 1. Cystitis nitrofurantoin, macrocrystal-monohydrate, (Macrobid) 100 MG capsule Urinalysis with reflex microscopic 2. Recurrent UTI 3. Urgency of urination Urinalysis with reflex microscopic (lab staff release/collect) Add-On Test Request Add-On Test Request 4. Frequency of urination Urinalysis with reflex microscopic (lab staff release/collect) Urine Culture grew ESBL but is susceptible to Macrobid. We initially prescribed Keflex but that cameback resistant. I called Daughter, Maia, on Monday as I was not able to get ahold of Charla's phone and relayed new plan to stop the Keflex and start Macrobid BID for 7 days. Maia dumont say on Wednesday 05/16 that her mom is doing better over the weekend and appears to have more energy. This is recurrent UTI and would like to recheck a UA in about 10 days with culture, then place her on daily prophylactic (initial again keflex as above, but think we will do a daily macrobid 50-100 mg instead based on these new results). She had ESBL in the past as well back in October 2021 that was susc eptible to Macrobid as well. Another consideration is referral to Urology. Patient Instructions Take Keflex 4 times per day for 7 days. Then switch to Keflex 250 mg once daily for 1 year to prevent UTI. If your urinary symptoms are not improved after the initial 7 day prescription, let me know. If urinary symptoms are better, but still feeling fatigued, poor sleep, etc, return to clinic. Return if symptoms worsen or fail to improve. Note created using voice dictation software. Total time spent in patient care was over 30 minutes which included the pre- work, visit work, and post-visit work. documented in this encounter Miscellaneous Notes Addendum Note - John Lee MD - 05/13/2022 9:00 AM CDT Addended by: JOHN LEE on: 05/27/2022 04:17 PM Modules accepted: Orders documented in this encounter Plan of Treatment Not on filedocumented as of this encounter Procedures Procedure Name Priority Date/Time Associated Diagnosis Comme nts ADD-ON TEST REQUEST Routine 05/27/2022 4:09 PM Recurrent UTI R esults for this CDT procedure are i n the results section. ADD-ON TEST REQUEST Routine 05/13/2022 10:07 AM Urgency of uri nation Results for this CDT procedure are i n the results section. documented in this encounter Results Add-On Test Request (05/27/2022 4:09 PM CDT) [facility] Method Time Signature Add-on Testing SEE BELOW 05/27/2022 [place] 4:27 PM CDT [facility] Comment: Urine culture added to the original orde r Specimen Anatomical Collection Method Collection Time Receive d Time (Source) Location / / Volume Laterality 05/27/2022 4:09 PM 4:09 CDT PM CDT Narrative [facility] - 05/14 4:27 PM CDT Culture added to original order John Lee MD LAB BLOOD ORDERABLES Performing Organization Address City/State/ZIP Code Phon e Number [facility] [address] [place] [phone] (ABNORMAL) Urinalysis with reflex microscopic (05/27/2022 11:03 AM CDT) [facility] Method Time Signature Type CLEAN CATCH 05/27/2022 [facility] 11:11 AM CDT [place] Color, Urine YELLOW YELLOW 05/27/2022 [facility] 11:11 AM CDT [place] Clarity, CLOUDY (A) CLEAR 05/27/2022 [facility] Urine 11:11 AM CDT [place] Glucose, NEGATIVE NEGATIVE 05/27/2022 [facility] Urine mg/dL 11:11 AM CDT [place] Bilirubin, NEGATIVE NEGATIVE 05/27/2022 [facility] Urine 11:11 AM CDT [place] Ketones, TRACE (A) NEGATIVE 05/27/2022 [facility] Urine mg/dL 11:11 AM CDT [place] Specific 1.020 1.000 05/27/2022 [facility] [place], ->=1.030 11:11 AM CDT [place] Urine Blood, Urine TRACE (A) NEGATIVE 05/27/2022 [facility] 11:11 AM CDT [place] pH, Urine 6.0 5.0 - 7.0 05/27/2022 [facility] 11:11 AM CDT [place] Protein, NEGATIVE NEGATIVE-TRA 05/27/2022 [facility] Urine CE mg/dL 11:11 AM CDT [place] Urobilinogen, 0.2 0.2 - 1.0 05/27/2022 [facility] Urine E.U./dL 11:11 AM CDT [place] Nitrite, POSITIVE (A) NEGATIVE 05/27/2022 [facility] Urine 11:11 AM CDT [place] Leukocytes, LARGE (A) NEGATIVE 05/27/2022 [facility] Urine 11:11 AM CDT [place] Specimen Anatomical Collection Method Collection Time Receive d Time (Source) Location / / Volume Laterality Urine (Urine, 05/27/2022 11:03 05/27/2022 [place]) AM CDT 11:03 AM CDT John Lee MD LAB URINE ORDERABLES Performing Organization Address City/State/ZIP Code Phon e Number [facility] [place] [address] [place] [address] Add-On Test Request (05/13/2022 10:07 AM CDT) [facility] Method Time Signature Add-on Testing SEE BELOW 05/13/2022 [place] 1:04 PM [address] [facility] Comment: Urine culture added to previous order. Specimen Anatomical Collection Method Collection Time Receive d Time (Source) Location / / Volume Laterality 05/13/2022 10:07 05/13/2022 AM CDT 10:07 AM CDT John Lee MD LAB BLOOD ORDERABLES Performing Organization Address City/State/ZIP Code Phon e Number [facility] [address] [place] [phone] (ABNORMAL) Urinalysis with reflex microscopic (lab staff release/collect) (05/13/2022 10:00 AM CDT) [facility] Method Time Signature Type COLLECTION HAT 05/13/2022 [facility] 10:06 AM [place] CDT Color, Urine YELLOW YELLOW 05/13/2022 [facility] 10:06 AM [place] CDT Clarity, CLOUDY (A) CLEAR 05/13/2022 [facility] Urine 10:06 AM [place] CDT Glucose, NEGATIVE NEGATIVE 05/13/2022 [facility] Urine mg/dL 10:06 AM [place] CDT Bilirubin, NEGATIVE NEGATIVE 05/13/2022 [facility] [place] Urine 10:06 AM [place] CDT Ketones, NEGATIVE NEGATIVE 05/13/2022 [facility] Urine mg/dL 10:06 AM [place] CDT Specific 1.010 1.000 05/13/2022 [facility] [place], ->=1.030 10:06 AM [place] Urine CDT Blood, Urine TRACE (A) NEGATIVE 05/13/2022 [facility] [place] 10:06 AM [place] CDT pH, Urine 5.5 5.0 - 7.0 05/13/2022 [facility] 10:06 AM [place] CDT Protein, TRACE NEGATIVE-TRA 05/13/2022 [facility] Urine CE mg/dL 10:06 AM [place] CDT Urobilinogen, 0.2 0.2 - 1.0 05/13/2022 [facility] Urine E.U./dL 10:06 AM [place] CDT Nitrite, POSITIVE (A) NEGATIVE 05/13/2022 [facility] [place] Urine 10:06 AM [place] CDT Leukocytes, LARGE (A) NEGATIVE 05/13/2022 [facility] Urine 10:06 AM [place] CDT Specimen Anatomical Collection Method Collection Time Receive d Time (Source) Location / / Volume Laterality Urine (Urine, 05/13/2022 10:00 05/13/2022 [place]) AM CDT 10:03 AM CDT John Lee MD LAB URINE ORDERABLES Performing Organization Address City/State/ZIP Code Phon e Number [facility] [place] [address] [place] [address] documented in this encounter Visit Diagnoses Diagnosis Cystitis - Primary Unspecified cystitis Recurrent UTI Urinary tract infection, site not specif ied Urgency of urination Frequency of urination Urinary frequency documented in this encounter Care Teams Rod Greaser Relationship Specialty Start Date End Date John Lee MD PCP - General 05/26/[address] [place] Ceron [phone] documented as of this encounter
--- OUTSIDE RECORDS SUMMARY | 2022-06-30 13:47 | XMS_ITS | Encounter Summary ---
:1940 Author Organization [facility] Address [address] [place] [address] Care Team Providers Name Role Phone None, Pcp Primary Care Provider Unavailable Encounter Details Date Type Department Care Team Description 11/11/2021 Telephone [place] John Willingham MD [address] [facility] [address] [place], [place] [address] [place], [place] [phone] (Wo rk) Social History Tobacco Use Types [...] this encounter Miscellaneous Notes Telephone Encounter - John Willingham MD - 11/11/2021 1:13 PM CDT Spoke with patient, she says she no longer has rash and no longer having problems with urination or low back pain. Still feeling a little weak but attributing that to not doing much over this illness. Overall doing a lot better. Maia patient's daughter interested in possibly getting a continuous glucose meter. Will order to family fare. documented in this encounter Plan of Treatment Not on filedocumented as of this encounter Visit Diagnoses Diagnosis Type 2 diabetes mellitus with hyperglyce bonilla, without long-term current use of insulin (HCC) - Primary documented in this encounter Care Teams Casing Trimmer Relationship Specialty Start Date End Date None, Pcp PCP - General Fork Lift Truck Operator 11/02/21 05/25/22 [address] [place] [address] documented as of this encounter
--- OUTSIDE RECORDS SUMMARY | 2022-06-30 13:47 | XMS_ITS | Encounter Summary ---
:1940 Author Organization [facility] Address [address] [place] [address] Care Team Providers Name Role Phone None, Pcp Primary Care Provider Unavailable Encounter Details Date Type Department Care Team Description 11/05/2021 [place], ESBL (extended spectrum beta -lactamase) producing bacteria infection (Primary Dx); [address] Hypercalcemia; CLARIBEL Culp [address] [place] Elevated liver enzymes; [id number] [address] [place] Type 2 diabetes mellitus wit h hyperglycemia, without long-term current use of insulin ([facility]) [phone] Social History Tobacco Use Types Packs/Day Years [...] documented as of this encounter Progress Notes John Willingham MD - 11/05/2021 10:40 AM CDT Subjective Patient ID: Charla Graham is a 81 y.o. female. No chief complaint on file. HPI Patient here for follow up. Accompanied by her two daughters today. Seen by myself on 11/02/21 just a few days ago to establish care and for urinary concerns. See that note for further details. Here to go over labs and urinary symptoms. She states she is able to urinate more easily now. She is being treated with macrobid for ESBL E. Coli cystitis. She has had some lower back pain that is not very severe or worsening. Eating and drinking normally. She reports the redness in the vaginal area is a lot better. She did receive 2 doses of diflucan for possible fungal cystitis but switched to macrobid when urine culture came back. She declines re-examination today. Her labs were notable for mildly reduced GFR of 53. Elevated ALT 172 and AST 77. Also mild hypercalcemia 10.8. She drinks one to two shots of ric a couple times per week in the evening before bed. She is a type 2 diabetic on metformin and glucotrol. Glucose ranges have been wide. She has been feeling increased thirst. The following portions of the patient's chart were reviewed in this encounter and updated as appropriate: ROS ROS done as noted in HPI Objective Visit Vitals Smoking Status Never Smoker Physical Exam Vitals reviewed. Constitutional: General: She is not in acute distress. Appearance: She is not ill-appearing or diaphoretic. Abdominal: General: Bowel sounds are normal. There is no distension. Palpations: Abdomen is soft. There is no mass. Tenderness: There is no abdominal tenderness. There is no right CVA tenderness, left CVA tendernessor guarding. Neurological: General: No focal deficit present. Mental Status: She is alert. Assessment/Plan Diagnosis Plan 1. ESBL (extended spectrum beta-lactamase) producing bacteria infection 2. Hypercalcemia 3. Elevated liver enzymes 4. Type 2 diabetes mellitus with hyperglycemia, without long-term current use of insulin (HCC) Overall improving now on an antibiotic that should cover the E coli infection (sensitive to macrobid). She has pills that iwll last until Monday next week. I did give her a call on Wednesday 11/08 to check in and she said she overall was feeling better and urine flow is better without pain. She had a little bit of a back ache on Monday but Monday was doing better. She states she feels a little weaker than usual but has not been very active over the past week so attributes it a little to that, but still feels better today than last week. I will call and check in on her on after she has completed course of Macrobid 5 days. I spoke with Charla and her daughters about the UTI (including not knowing if this is the originalinfection that was not adequately treated due to ESBL and resistant to both ciprofloxacin and bactrim which she received) or if this is a secondary UTI that developed after those antibiotics. Her otherfindings on labs we spoke about reducing alcohol intake and obtaining at least ultrasound of the abdomen to evaluate the liver in particular but would like to wait a couple months and recheck blood test first. I also told them that if she continues to have low back pain despite adequate treatment of UTI, would recommend lumbar XR and CT or MRI. We can recheck urine to ensure treatment of UTI as well and I will see if Charla would like to do this when I call her on . We also discussed trying to have more protein and fiber when she has carbs and to limit juice intaketo reduce the large swings in blood sugar she has been experiencing. Also discussed possible work upfor hypercalcemia as this along with high blood sugar can cause increased thirst. Return in about 2 months (around 01/05/2022) for Recheck. Note created using voice dictation software. Total time spent in patient care was over 30 minutes which included the pre- work, visit work, and post-visit work. documented in this encounter Plan of Treatment Not on filedocumented as of this encounter Visit Diagnoses Diagnosis ESBL (extended spectrum beta-lactamase) producing bacteria infection - Primary Infection due to other specified bacteri a in conditions classified elsewhere and of unspecified site Hypercalcemia Elevated liver enzymes Other nonspecific abnormal serum enzyme levels Type 2 diabetes mellitus with hyperglyce bonilla, without long-term current use of insulin (HCC) documented in this encounter Care Teams Ore Grader Relationship Specialty Start Date End Date None, Pcp PCP - General Animal Trainer Supervisor 11/02/21 05/25/[address] [place] [phone] documented as of this encounter
--- OUTSIDE RECORDS SUMMARY | 2022-06-30 13:47 | XMS_ITS | Encounter Summary ---
:1940 Author Organization [facility] Address [address] [place] [address] Care Team Providers Name Role Phone None, Pcp Primary Care Provider Unavailable Encounter Details Date Type Department Care Team Description 02/04/2022 Telephone [place] John Willingham MD [address] [facility] [address] [place], [place] [address] [place], [place] [phone] (Wo rk) Social History Tobacco Use Types [...] Telephone Encounter - John Willingham MD - 02/04/2022 1:43 PM CDT Diagnosis Plan 1. Recurrent UTI cephalexin (Keflex) 250 MG capsule Spoke to patient regarding urine culture results. Recommending prophylaxis now that recurrent UTI with keflex once daily as above for the next six months. Sent to family talia. Can rock picker early next week and start once she completes the UTI dosed keflex regimen of 7 days early next week. documented in this encounter Plan of Treatment Not on filedocumented as of this encounter Visit Diagnoses Diagnosis Recurrent UTI - Primary Urinary tract infection, site not specif ied documented in this encounter Care Teams Brazer Assembler Relationship Specialty Start Date End Date None, Pcp PCP - General Dispatch Manager 11/02/21 05/25/22 [address] [place] [phone] documented as of this encounter
--- OUTSIDE RECORDS SUMMARY | 2022-06-30 13:47 | XMS_ITS | Encounter Summary ---
:1940 Author Organization Address [address] [place] [address] Care Team Providers Name Role Phone None, Pcp Primary Care Provider Unavailable Encounter Details Date Type Department Care Team Description 02/09/2022 Lab [facility] [place] Hypercalcemia [address] [place], [place] [address] Social History Tobacco Use Types Packs/Day Years [...] documented as of this encounter Miscellaneous Notes Result Encounter Note - John Willingham MD - 02/09/2022 10:45 AM CDT Attempted call and no answer. Sending letter. A1C looks great. Follow up in 6 months. We can [id number] then (and Calcium and PTH level at that time if needed). documented in this encounter Plan of Treatment Not on filedocumented as of this encounter Procedures Procedure Name Priority Date/Time Associated Diagnosis Comme nts VITAMIN D, TOTAL Routine 02/09/2022 10:57 AM Hypercalcemia Res ults for this CDT procedure are i n the results section. HEMOGLOBIN A1C Routine 02/09/2022 10:57 AM Hypercalcemia Resul ts for this CDT procedure are i n the results section. documented in this encounter Results (ABNORMAL) Hemoglobin A1c (02/09/2022 10:57 AM CDT) Analysis Performed At Patho logist Time Signature Hemoglobin A1C 6.2 (H) 4.0 - 5.6 02/10/2022 [place] % A1C 1:25 PM [facility] Comment: Reference Range 4.0-5.6% is for non-preg nant adults >=18 yrs <5.6% ? Non-Diabetic 5.7-6.4% ??Increased risk of Diabetes >=6.5% ?Indicative of Diabetes <7.0% ? ADA goal for glycemic contro l Methodology may not detect all hemoglobi n variants which can affect A1c results. Method certified by National Glycohemoglobin Standardization Program. Specimen Anatomical Collection Method Collection Time Receive d Time (Source) Location / / Volume Laterality Blood (Blood, 02/09/2022 10:57 02/10/2022 Venous) AM CDT 12:33 PM CDT John Willingham MD LAB BLOOD ORDERABLES Performing Organization Address City/State/ZIP Code Phon e Number [facility] [address] [place] [phone] Vitamin D, Total ([facility] preferred) (02/09/2022 10:57 AM CDT) P athologist Signature Vitamin D, 46.7 ng/mL 02/10/2022 [facility] 1:15 PM [facility] Comment: Deficient ?<20 ? ng/mL Insufficient ? 20-<30 ??ng/mL Sufficient ? 30-100 ??ng/mL Vitamin D2/D3 fractionation is recommend ed at the discretion of the clinician if Total Vitamin D is w ithin deficient or insufficient range. Specimen Anatomical Collection Method Collection Time Receive d Time (Source) Location / / Volume Laterality Blood (Blood, 02/09/2022 10:57 02/10/2022 Venous) AM CDT 12:33 PM CDT John Willingham MD LAB BLOOD ORDERABLES Performing Organization Address City/State/ZIP Code Phon e Number [facility] [address] [place] [address] documented in this encounter Visit Diagnoses Diagnosis Hypercalcemia documented in this encounter Care Teams Tamale Maker Relationship Specialty Start Date End Date None, Pcp PCP - General Vp Director Of Finance 11/02/21 05/25/[address] [place] [phone] documented as of this encounter
--- OUTSIDE RECORDS SUMMARY | 2022-06-30 13:47 | XMS_ITS | Encounter Summary ---
:1940 Author Organization [facility] Address [address] [place] [address] Care Team Providers Name Role Phone None, Pcp Primary Care Provider Unavailable Encounter Details Date Type Department Care Team Description 11/04/2021 Telephone [place] John Willingham MD [address] [facility] [address] [place], [place] [address] [place], [place] [id number] (Wo rk) Social History Tobacco Use Types Packs/Day Years Used Date Smoking Tobacco: Never Smokeless Tobacco: Never Alcohol Use Standard Drinks/Week Comments Not Currently 0 (1 standard drink = 0.6 oz pure alcoho l) Sex Assigned at Date Recorded Not on file documented as of this encounter Miscellaneous Notes Telephone Encounter - John Willingham MD - 11/04/2021 1:00 PM CDT Spoke with patient and reviewed urine culture results. She was able to order picker macrobid yesterday and is taking, has had 3 doses so far. Feeling OK, a little tired today. She will come to follow up appointment tomorrow with Maia, her daughter. documented in this encounter Plan of Treatment Not on filedocumented as of this encounter Visit Diagnoses Diagnosis ESBL (extended spectrum beta-lactamase) producing bacteria infection - Primary Infection due to other specified bacteri a in conditions classified elsewhere and of unspecified site documented in this encounter Care Teams Physiognomist Relationship Specialty Start Date End Date None, Pcp PCP - General Director Of Sales And Marketing 11/02/21 05/25/22 [address] [place] [address] documented as of this encounter
--- OUTSIDE RECORDS SUMMARY | 2022-06-30 13:47 | XMS_ITS | Clinical Summary ---
:1940 Author Organization [facility] Address [address] [place] [address] Care Team Providers Name Role Phone John Willingham MD Primary Care Provider Allergies Active Allergy Reactions Severity Noted Date Comments Ampicillin Low 11/02/2021 Has tolerated K eflex before without reactio n Sulfamethoxazole-Trimethopri Rash 11/02/2021 m Tramadol Itching Medium 11/06/2012 Medications Medication Sig Dispensed Refills Start Date End Date Status metFORMIN Take 1,000 mg by 0 Act vijay (GLUCOPHAGE) 500 MG mouth 2 (two) times tablet a day with meals 2 tablets in AM and 1 tablet in PM glipiZIDE Take 5 mg by mouth 2 0 Active (GLUCOTROL) 5 MG (two) times a day tablet before meals Continuous Blood 1 application every 2 each 11 11/11/2021 Active Gluc Sensor 14 (fourteen) days (FreeStyle Barbie 14 Day Sensor) miscIndications: Type 2 diabetes mellitus with hyperglycemia, without long-term current use of insulin ([facility]) Additional Information Patient not taking. Reported on 06/07/2022 Continuous Blood Gluc Book Publisher 1 each 1 (one) time 1 Device 0 11/11/2021 Active (FreeStyle Barbie 14 Day Warren) each day deviceIndications: Type 2 diabetes mellitus with hyperglycemia, without long-term current use of insulin ([facility]) Additional Information Patient not taking. Reported on 06/07/2022 nitrofurantoin, Take 1 14 capsule 0 05/27/2022 06/03/2022 E xpired macrocrystal-monohydrate, capsule (100 (Macrobid) 100 MG mg total) by capsuleIndications: Recurrent mouth 2 UTI (two) times a day for 7 days Active Problems Problem Noted Date Type 2 diabetes mellitus 11/08/2021 ESBL (extended spectrum beta-lactamase) producing bact eria infection 11/04/2021 Hypercalcemia 11/04/2021 S/P hip replacement 03/17/2014 Resolved Problems Problem Noted Date Resolved Date Elevated liver enzymes 11/08/2021 02/01/2022 Encounters Date Type Specialty Care Team Description 06/07/2022 Office Visit Family Medicine John Willingham MD Rec urrent cystitis (Primary Dx); Type 2 diabetes mellitus without complication, without long-term current use of insulin (HCC); Medication side effect 05/30/2022 Telephone Family Medicine John Willingham MD med ication questions 05/27/2022 Lab Family Medicine Cystitis 05/13/2022 Lab Family Medicine Urgency of u rination; Frequency of ur ination 05/13/2022 Office Visit Family Medicine John Willingham MD Cys titis (Primary Dx); Recurrent UTI; Urgency of urin ation; Frequency of ur ination 05/12/2022 Telephone Family Medicine John Willingham MD pos s UTI from Last 3 Months Family History Medical History Relation Comments Heart disease Brother 3 Aneurysm Daughter 1 Heart disease Father Diabetes Mother Aneurysm Sister Relation Status Comments Brother 1 Alive Brother 2 Alive Brother 3 Brother 4 Daughter 1 Daughter 2 Father Mother Sister Social History Tobacco Use Types Packs/Day Years [...] Sign Reading Time Taken Comments Blood Pressure 118/60 06/07/2022 10:58 AM CDT Pulse 97 06/07/2022 10:58 AM CDT Temperature 37.1 ??C (98.8 ??F) 06/07/2022 10:58 AM CDT Respiratory Rate 16 06/07/2022 10:58 AM CDT Oxygen Saturation 97% 06/07/2022 10:58 AM CDT Inhaled Oxygen Concentration - - Weight 57.6 kg (127 lb) 06/07/2022 10:58 AM CDT Height 156.6 cm (5' 1.65) 11/05/2021 10:48 AM CDT Body Mass Index 23.49 11/05/2021 10:48 AM CDT Plan of Treatment Health Maintenance Due Date Last Done Comments Glaucoma Screening 67+ Yr 1940 Mammogram 1940 COVID-19 Vaccine (#1) 01/15/1941 Pneumococcal Vaccine: 65+ 1944 Years (1 - PCV) DTaP,Tdap,and Td Vaccines (1 1957 - Tdap) Zoster Vaccines (1 of 2) 1988 Lipid Panel 06/01/2022 06/01/2021 Urine Protein Screening 06/01/2022 06/01/2021 Ophthalmology Exam 07/06/2022 07/06/2020, 04/18/2019, 12/21/2018, Additional history exists Hemoglobin A1C 08/11/2022 02/09/2022, 10/08/2021, 06/01/2021 Fall Risk Performed 11/05/2022 11/05/2021 [facility] [place] 11/05/2022 11/05/2021 Diabetic Foot Exam 02/01/2023 02/01/2022 HPV Vaccines Aged Out No longer eligib le based on patient 's age to complete this topic Procedures Procedure Name Priority Date/Time Associated Comments Diagnosis ADD-ON TEST REQUEST Routine 05/27/2022 4:09 PM Recurrent UTI R esults for this CDT procedure are i n the results section. URINALYSIS-MICROSCOPI Routine 05/27/2022 11:03 Cystitis Re sults for this C EXAM (REFLEXED) AM CDT procedure are in the results section. URINALYSIS WITH Routine 05/27/2022 11:03 Cystitis Results for this REFLEX MICROSCOPIC AM CDT procedure are in the results section. URINE CULTURE Routine 05/27/2022 11:03 Results fo r this AM CDT procedure are i n the results section. ADD-ON TEST REQUEST Routine 05/13/2022 10:07 Urgency of Resu lts for this AM CDT urination procedure are i n the results section. URINALYSIS-MICROSCOPI Routine 05/13/2022 10:00 Urgency of Re sults for this C EXAM (REFLEXED) AM CDT urination procedure are in Frequency of the results urination section. URINALYSIS WITH Routine 05/13/2022 10:00 Urgency of Results for this REFLEX MICROSCOPIC AM CDT urination procedure are in Frequency of the results urination section. URINE CULTURE Routine 05/13/2022 10:00 Results fo r this AM CDT procedure are i n the results section. from Last 3 Months Results Add-On Test Request (05/27/2022 4:09 PM CDT)Only the most recent of2 results within the time period is included. [facility] Signature Add-on Testing SEE BELOW 05/27/2022 [place] 4:27 PM [facility] Comment: Urine culture added to the original orde r Specimen Anatomical Collection Method Collection Time Receive d Time (Source) Location / / Volume Laterality 05/27/2022 4:09 PM 4:09 CDT PM CDT Narrative [facility] - 05/14 4:27 PM CDT Culture added to original order John Willingham MD LAB BLOOD ORDERABLES Performing Organization Address City/State/ZIP Code Phon e Number [facility] [address] [place] [address] (ABNORMAL) Urinalysis-Microscopic Exam (05/27/2022 11:03 AM CDT)Only the most recent of2 resultswithin the time period is included. [facility] Method [place] Signature Casts, urine NONE SEEN 0-2 Hyaline 05/27/2022 PURVI /lpf 6:02 PM [facility] Significant NONE SEEN None Seen 05/27/2022 [place] casts, urine /lpf 6:02 [facility] RBC, Urine 4-10 (A) 0 - 3 /hpf 05/27/2022 [place] 6:02 PM [facility] WBC, Urine 51-100 /hpf 05/27/2022 [place] (A) 6:02 PM [facility] Comment: Male Ref Range ? 0-3/hpf Female Ref Range ?? 0-10/hpf Squamous Epithelial, 1+ (A) Few /lpf 05/27/2022 6:02 PM [facility] U[facility] Trans Epithelial, 0-3 0 - 3 /hpf 05/27/2022 6:02 PM [facility] Urine T [place] [facility] Renal Tubular Cells, 0-1 0 - 1 /hpf 05/27/2022 6:02 PM [facility] Urine T [place] [facility] Comment: Cells suggestive of renal epithelial corona ls present. Bacteria, Urine 3+ (A) None Seen - Few 05/27/2022 6:02 PM [facility] Specimen Anatomical Collection Method Collection Time Receive d Time (Source) Location / / Volume Laterality 05/27/2022 11:03 05/27/2022 5:44 AM CDT PM CDT Narrative [facility] - 05/14 6:02 PM CDT TEST TO ADD URINE CULTURE John Willingham MD LAB URINE ORDERABLES Performing Organization Address City/State/ZIP Code Phon e Number [facility] [address] [place] [address] (ABNORMAL) Urinalysis with reflex microscopic (05/27/2022 11:03 AM CDT)Only the most recent of2 resultswithin the time period is included. [facility] Method Time Signature Type CLEAN CATCH 05/27/2022 [facility] 11:11 AM CDT [place] Color, Urine YELLOW YELLOW 05/27/2022 [facility] 11:11 AM [facility]T [place] Clarity, CLOUDY (A) CLEAR 05/27/2022 [facility] Urine 11:11 AM CDT [place] Glucose, NEGATIVE NEGATIVE 05/27/2022 [facility] Urine mg/dL 11:11 AM [place]T [place] Bilirubin, NEGATIVE NEGATIVE 05/27/2022 [facility] Urine 11:11 AM [place]T [place] Ketones, TRACE (A) NEGATIVE 05/27/2022 [facility] Urine mg/dL 11:11 AM CDT [place] Specific 1.020 1.000 05/27/2022 [facility] [place], ->=1.030 11:11 AM CDT [place] Urine Blood, Urine TRACE (A) NEGATIVE 05/27/2022 [facility] 11:11 AM CDT [place] pH, Urine 6.0 5.0 - 7.0 05/27/2022 [facility] 11:11 AM CDT [place] Protein, NEGATIVE NEGATIVE-TRA 05/27/2022 [facility] [place] Urine CE mg/dL 11:11 AM CDT [place] Urobilinogen, 0.2 0.2 - 1.0 05/27/2022 [facility] [place] Urine E.U./dL 11:11 AM CDT [place] Nitrite, POSITIVE (A) NEGATIVE 05/27/2022 [facility] [place] Urine 11:11 AM CDT [place] Leukocytes, LARGE (A) NEGATIVE 05/27/2022 [facility] [place] Urine 11:11 AM CDT [place] Specimen Anatomical Collection Method Collection Time Receive d Time (Source) Location / / Volume Laterality Urine (Urine, 05/27/2022 11:03 05/27/2022 Clean Catch) AM CDT 11:03 AM CDT John Willingham MD LAB URINE ORDERABLES Performing Organization Address City/[facility] Code Phon e Number [facility] [place] [address] [place] [address] (ABNORMAL) Urine culture (05/27/2022 11:03 AM CDT)Only the most recent of2 resultswithin the time period is included. [facility] gist Method Time Signature Urine Culture Klebsiella pneumoniae 05/30/2022 [facility] >100,000 cfu/ml 8:27 AM CDT [facility] [place] [facility] Specimen Anatomical Collection Method Collection Time Receive d Time (Source) Location / / Volume Laterality Urine (Urine, 05/27/2022 11:03 05/27/2022 5:44 Clean Catch) AM CDT PM CDT Comment: URINE Narrative [facility] - 05/14 8:29 AM CDT TEST TO ADD URINE CULTURE Organism Antibiotic Method Susceptibility Klebsiella pneumoniae Ampicillin >16 mcg/mL : Resistant Klebsiella pneumoniae Ampicillin/Sulbactam <=8/4 mcg/mL: Susceptible Klebsiella pneumoniae Cefazolin <=2 mcg/mL : Susceptible Klebsiella pneumoniae Ciprofloxacin <=0.25 mcg /mL: Susceptible Klebsiella pneumoniae Gentamicin <=4 mcg/mL : Susceptible Klebsiella pneumoniae Levofloxacin <=0.5 mcg/ mL: Susceptible Klebsiella pneumoniae Nitrofurantoin 64 mcg/mL: Intermediate Klebsiella pneumoniae Trimeth/Sulfa <=2/38 mcg /mL: Susceptible John Willingham MD LAB MICROBIOLOGY - GENERAL O RDERABLES Performing Organization Address City/State/ZIP Code Phon e Number [facility] [address] [place] [address] from Last 3 Months Insurance Payer Benefit Plan / Subscriber ID Effective Dates Phone Addre ss Type Group MEDICARE MEDICARE [id number] 2003-Present [address] [address] [place] [address] Care Teams Shared Services Representative Relationship Specialty Start Date End Date John Willingham MD PCP - General 05/26/[address] [place] [address]
--- OUTSIDE RECORDS SUMMARY | 2022-06-30 13:47 | XMS_ITS | Encounter Summary ---
:1940 Author Organization [facility] Address [address] [place] [address] Care Team Providers Name Role Phone None, Pcp Primary Care Provider Unavailable Reason for Visit Reason Comments Medicare Annual Wellness Visit Initial Encounter Details Date Type Department Care Team Description 11/05/2021 Clinical Support Lj Smith Medicare annual wellness [address] visit, initial (Primary CLARIBEL Culp [address] Dx) [phone] Social History Tobacco Use Types Packs/Day Years [...] Sign Reading Time Taken Comments Blood Pressure 102/60 11/05/2021 10:48 AM CDT Pulse 84 11/05/2021 10:48 AM CDT Temperature 37.1 ??C (98.8 ??F) 11/05/2021 10:48 AM CDT Respiratory Rate 16 11/05/2021 10:48 AM CDT Oxygen Saturation 94% 11/05/2021 10:48 AM CDT Inhaled Oxygen Concentration - - Weight 58.2 kg (128 lb 3.2 oz) 11/05/2021 10:48 AM CDT Height 156.6 cm (5' 1.65) 11/05/2021 10:48 AM CDT Body Mass Index 23.71 11/05/2021 10:48 AM CDT documented in this encounter Progress Notes Dyan Romero RN - 11/05/2021 10:40 AM CDT Annual Wellness Visit CARE TEAM / RESOURCES: Patient Care Team: Pcp None as PCP - General ([place]) Dr. Willingham Eye Care: Dr. Farrell Dental Care: Susy allen [facility]acy: [facility] [address] [address] Other: none Visit Vitals BP 102/60 (BP Location: Left arm, Patient Position: Sitting, BP Cuff Size: Adult) Pulse 84 Temp 37.1 ??C (98.8 ??F) (Temporal) Resp 16 Ht 1.566 m (5' 1.65) Wt 58.2 kg (128 lb 3.2 oz) SpO2 94% BMI 23.71 kg/m?? Smoking Status Never Smoker BSA 1.59 m?? Allergies Allergen Reactions ??? Ampicillin ??? Sulfamethoxazole-Trimethoprim Rash Outpatient Encounter Medications as of 11/05/2021 Medication Sig Dispense Refill ??? glipiZIDE (GLUCOTROL) 5 MG tablet Take 5 mg by mouth 2 (two) times a day before meals ??? metFORMIN (GLUCOPHAGE) 500 MG tablet Take 1,000 mg by mouth 2 (two) times a day with meals ??? nitrofurantoin, macrocrystal-monohydrate, (Macrobid) 100 MG capsule Take 1 capsule (100 mg total) by mouth 2 (two) times a day for 5 days 10 capsule 0 ??? fluconazole (Diflucan) 200 MG tablet Take 1 tablet (200 mg total) by mouth 2 (two) times a day for 14 days (Patient not taking: Reported on 11/05/2021) 28 tablet 0 No facility-administered encounter medications on file as of 11/05/2021. There is no immunization history on file for this patient. Patient Active Problem List Diagnosis ??? ESBL (extended spectrum beta-lactamase) producing bacteria infection ??? Hypercalcemia Past Medical History: Diagnosis Date ??? Diabetes mellitus (HCC) Past Surgical History: Procedure Laterality Date ??? KIDNEY SURGERY ??? TOTAL HIP ARTHROPLASTY Bilateral Social History Socioeconomic History ??? Marital status: Spouse name: None ??? Number of children: 5 ??? Years of education: None ??? Highest education level: 10th grade Occupational History ??? None Tobacco Use ??? Smoking status: Never Smoker ??? Smokeless tobacco: Never Used Vaping Use ??? Vaping Use: Never used Substance and Sexual Activity ??? Alcohol use: Not Currently ??? Drug use: Not Currently ??? Sexual activity: None Other Topics Concern ??? None Social History Narrative ??? None Social Determinants of Health Financial Resource Strain: Not on file Food Insecurity: Not on file Transportation Needs: Not on file Physical Activity: Not on file Stress: Not on file Social Connections: Not on file Intimate Partner Violence: Not on file Housing Stability: Not on file General Care Management Assessment completed with:: Patient, Children Enrolled in care management program:: No Living arrangement:: Alone Support system:: Family Family conflict:: No Type of residence:: Private residence Home care services:: No Equipment used at home:: Walker Communication device:: Yes Financial problems:: No Transportation issues:: No Transportation means:: Regular car Other issues:: Hearing impairment Bed or wheelchair confined:: No Diet:: No added salt (low sugar) Inadequate nutrition:: No Exercise:: Currently not exercising Inadequate activity/exercise:: No Medication adherence problem:: No Experiencing side effects from current medications:: Yes (many changes recently.) History of falls in last 6 months:: No Difficulty keeping appointments:: No Family aware of the patient's advance care planning wishes:: Yes Religion or spiritual beliefs that impact treatment:: No Chronic pain:: No Pain Assessment Scored: 0-No pain and location: Utilization / Navigation of Health Care Systems: Does not overuse the Emergency Room. PHQ-9 mental health screening performed. Scored: JAMEE-7 anxiety screening performed. Scored: Mini-Cog test performed. Scored: 2 / 5 CAGE-AID test performed. BMI/weight management reviewed. BMI: Body mass index is 23.71 kg/m??. BMI less than 30 referral to nutrition education not applicable. Fall Risk Assessment performed. Scored: Tug time: Declines referral for Physical Therapy for fall risk. Colon Cancer Screening: Last done: none Due: declined Breast Cancer Screening: Last done: none Osteoporosis Screening: Last done: none Prostate Cancer Screening: No results found for: PSA, PSAD Hepatitis C Screening: No results found for: HEPCAB Glaucoma Screening: Indicated AAA Screening: Not indicated Lung Cancer Screening: Not indicated Findings: Patient is a diabetic who lives at home. She has a close relationship she reports with her children who help her care for herself. She has had a decreased appetite recently due to recent diabetic health concerns but overall she is able to cook for herself and care for her ADLs at home. Patient does not have an advanced directive and declined a packet at this time stating her family knew what she wanted. Patient has never had a colonoscopy, mammogram, or dexa scan and denies wanting this at this time. She is diabetic and would qualify for a glaucoma screening. The following referral(s) were created: None. What is an Annual Wellness Visit? Yearly appointment performed by another provider to create or update the personalized prevention plan. This plan helps prevent illness based on your current health and risk factors. ?? Medicare part B coverage the Annual Wellness Visit 100%. ?? Keep in mind that the annual wellness visit is not head to toe physical. ?? The service is similar to but separate from a one time a Welcome to Medicare Preventative Visit. The following information is regarding different screenings that will be discussed. Colon Cancer: ?? Age 50 and up (usually done until age 75) Breast Cancer: Medicare Part B (Medical Insurance) covers a Screening mammogram once every 12 months (11 full months must have passed since the last screening) ?? Women with Part B 40 or older are covered. Provider discretion beyond age 74 ?? Women with Part B between 35-39 can get one baseline mammogram Osteoporosis: Medicare Part B (Medical Insurance) covers this test once every 24 months for people who meet the criteria below: ?? A woman whose doctor determines both of these (based on her medical history and other findings): She's estrogen deficient AND She's at risk for osteoporosis ?? A person whose X-rays show possible osteoporosis, osteopenia, or vertebral fractures ?? A person taking prednisone or steroid-type drugs or is planning to begin this treatment ?? A person who has been diagnosed with primary hyperparathyroidism ?? A person who is being monitored to see if their osteoporosis drug therapy is working Prostate Cancer: Medicare Part B (Medical Insurance) covers: ?? Digital rectal exam: Once every 12 months ?? Prostate specific antigen (PSA) test: Once every 12 months ?? All men over 50 (beginning the day after your 50th birthday) with Part B are covered. Hepatitis C: Medicare covers one Hepatitis C screening test. Medicare also covers yearly repeat screening for certain people at high risk. ?? Those at high risk because they use or used illicit injection drugs. ?? Those who had a blood transfusion before 1991. ?? Those born between 1049-3190. Glaucoma: Medicare Part B (Medical Insurance) covers a glaucoma test once every 12 months for people at high risk for glaucoma. You're at high risk if one of these applies: ?? You have diabetes. ?? You have a family history of glaucoma. ?? You're and 50 or older. ?? You're and 65 or older. AAA: Medicare Part B (Medical Insurance) covers a one-time abdominal aortic aneurysm ultrasound for people who meet the criteria below: ?? You have a family history of abdominal aortic aneurysms. ?? You???re a man age 65 to 75 and have smoked at least 100 cigarettes in your lifetime. Lung Cancer: Medicare Part B (Medical Insurance) covers a lung cancer screening with Low Dose Computed Tomography(LDCT) once per year to those who meet ALL of these conditions: ?? They're 50-77. ?? They're asymptomatic (they don???t have signs or symptoms of lung cancer). ?? They're either a current smoker or have quit smoking within the last 15 years. ?? They have a tobacco smoking history of at least 20 ???pack years?? (an average of one pack a dayfor 20 years). documented in this encounter Plan of Treatment Not on filedocumented as of this encounter Visit Diagnoses Diagnosis Medicare annual wellness visit, initial - Primary documented in this encounter Care Teams Doll Eye Setter Relationship Specialty Start Date End Date None, Pcp PCP - General [place] 11/02/21 05/25/[address] [place] [phone] documented as of this encounter
--- OUTSIDE RECORDS SUMMARY | 2022-06-30 13:47 | XMS_ITS | Encounter Summary ---
:1940 Author Organization [facility] Address [address] [place] [address] Care Team Providers Name Role Phone None, Pcp Primary Care Provider Unavailable Encounter Details Date Type Department Care Team Description 05/13/2022 Lab Yesenia Smith Urgency of urination; [address] Frequency of urination [place] [address] Social History Tobacco Use Types [...] Procedure Name Priority Date/Time Associated Comments Diagnosis URINALYSIS-MICROSCOPI Routine 05/13/2022 10:00 Urgency of Re [...] section. documented in this encounter Results (ABNORMAL) Urine culture (05/13/2022 10:00 AM CDT) [facility] gist Method Time Signature Urine Culture Escherichia coli ESBL 05/15/2022 [facility] STED >100,000 cfu/ml 8:05 AM CDT [facility] Specimen (Source) Anatomical Collection Method Collection Time Re ceived Time Location / / Volume Laterality Urine (Urine, 05/13/2022 10:00 05/13/2022 5:38 Collection Hat) AM CDT PM CDT Comment: URINE Organism Antibiotic Method Susceptibility Escherichia coli ESBL Ampicillin >16 mcg/mL : Resistant Escherichia coli ESBL Ampicillin/Sulbactam <=8/4 mcg/mL: Susceptible Escherichia coli ESBL Cefazolin >16 mcg/mL : Resistant Escherichia coli ESBL Cefepime >16 mcg/mL : Resistant Escherichia coli ESBL Ceftriaxone >2 mcg/mL: Resistant Comment: ESBL Escherichia coli ESBL Ciprofloxacin >2 mcg/mL: Resistant Escherichia coli ESBL Gentamicin <=4 mcg/mL : Susceptible Escherichia coli ESBL Levofloxacin >4 mcg/mL: Resistant Escherichia coli ESBL Nitrofurantoin <=32 mcg/m L: Susceptible Escherichia coli ESBL Trimeth/Sulfa >2/38 mcg/ mL: Resistant John Willingham MD LAB MICROBIOLOGY - GENERAL O RDERABLES Performing Organization Address City/State/ZIP Code Phon e Number [facility] [address] [place] [phone] (ABNORMAL) Urinalysis-Microscopic Exam (05/13/2022 10:00 AM CDT) [facility] gist Method Time Signature Casts, urine NONE SEEN 0-2 Hyaline 05/13/2022 [facility] /lpf 5:53 PM [facility] Significant NONE SEEN None Seen 05/13/2022 [facility] casts, urine /lpf 5:53 PM [facility] RBC, Urine 0-3 0 - 3 /hpf 05/13/2022 [facility] 5:53 PM [facility] WBC, Urine 51-100 /hpf 05/13/2022 [facility] (A) 5:53 PM [facility] Comment: Male Ref Range ? 0-3/hpf Female Ref Range ?? 0-10/hpf Squamous Epithelial, FEW Few /lpf 05/13/2022 5:53 [facility] [place] [facility] Trans Epithelial, NONE SEEN 0 - 3 /hpf 05/13/2022 5:[facility] Renal Tubular Cells, NONE SEEN 0 - 1 /hpf 05/13/2022 5:53 [facility] Bacteria, Urine 2+ (A) None Seen - 05/13/2022 5:53 PM [facility] Few /hpf T [facility] Miscellaneous, urine SEE BELOW 05/13/2022 5:53 PM [facility] Comment: WBC Clumps Present. Specimen Anatomical Collection Method Collection Time Receive d Time (Source) Location / / Volume Laterality 05/13/2022 10:00 05/13/2022 5:38 AM CDT PM CDT John Willingham MD LAB URINE ORDERABLES Performing Organization Address City/State/ZIP Code Phon e Number [facility] [address] [place] [address] (ABNORMAL) Urinalysis with reflex microscopic (lab staff release/collect) (05/13/2022 10:00 AM CDT) [facility] Method Time Signature Type COLLECTION HAT 05/13/2022 [facility] 10:06 AM [place] CDT Color, Urine YELLOW YELLOW 05/13/2022 [facility] 10:06 AM [place] CDT Clarity, CLOUDY (A) CLEAR 05/13/2022 [facility] Urine 10:06 AM [place] CDT Glucose, NEGATIVE NEGATIVE 05/13/2022 [facility] Urine mg/dL 10:06 AM [place] CDT Bilirubin, NEGATIVE NEGATIVE 05/13/2022 [facility] Urine 10:06 AM [place] CDT Ketones, NEGATIVE NEGATIVE 05/13/2022 [facility] Urine mg/dL 10:06 AM [place] CDT Specific 1.010 1.000 05/13/2022 [facility] [place], ->=1.030 10:06 AM [place] Urine CDT Blood, Urine TRACE (A) NEGATIVE 05/13/2022 [facility] 10:06 AM [place] CDT pH, Urine 5.5 5.0 - 7.0 05/13/2022 [facility] 10:06 AM [place] CDT Protein, TRACE NEGATIVE-TRA 05/13/2022 [facility] Urine CE mg/dL 10:06 AM [place] CDT Urobilinogen, 0.2 0.2 - 1.0 05/13/2022 [facility] Urine E.U./dL 10:06 AM [place] CDT Nitrite, POSITIVE (A) NEGATIVE 05/13/2022 [facility] Urine 10:06 AM [place] CDT Leukocytes, LARGE (A) NEGATIVE 05/13/2022 [facility] Urine 10:06 AM [place] CDT Specimen Anatomical Collection Method Collection Time Receive d Time (Source) Location / / Volume Laterality Urine (Urine, 05/13/2022 10:00 05/13/2022 [place]atch) AM CDT 10:03 AM CDT John Willingham MD LAB URINE ORDERABLES Performing Organization Address City/State/ZIP Code Phon e Number [facility] [place] [address] [place] [address] documented in this encounter Visit Diagnoses Diagnosis Urgency of urination Frequency of urination Urinary frequency documented in this encounter Care Teams Ward Service Supervisor Relationship Specialty Start Date End Date None, Pcp PCP - General [employer] [place] 11/02/21 05/25/22 [address] [place] [address] documented as of this encounter
--- OUTSIDE RECORDS SUMMARY | 2022-06-30 13:47 | XMS_ITS | Encounter Summary ---
:1940 Author Organization [facility] Address [address] [place] [address] Care Team Providers Name Role Phone John Willingham MD Primary Care Provider Encounter Details Date Type Department Care Team Description 05/27/2022 Lab Lj Smith Cystitis [address] [place], [place] [address] Social History Tobacco Use [...] Encounter Note - John Willingham MD - 05/27/2022 1:45 PM CDT UA still suggestive of active infection. I spoke to Maia who says Charla did complete her Macrobid. Maia says Charla continues to get up frequently at night to urinate but otherwise has not been complaining of any urinary symptoms, new back pain or fevers or chills. I did reorder another 7 days. Requesting she be seen on Monday so we can review Urine culture (add on test requested) and examine the patient. May need referral to Urologyor Infectious vers or chills. Recommended if any new symptoms or concerns over the weekend to take her to ER right away. Result Encounter Note - John Willingham MD - 05/27/2022 1:45 PM CDT Please call patient and daughter Maia and have patient schedule follow up with me for this week ( or Monday whichever works better and prefer we have lab available when she comes in to recheckher urine). Please inform her that her urine culture was susceptible to the Macrobid. documented in this encounter Plan of Treatment Not on filedocumented as of this encounter Procedures Procedure Name Priority Date/Time Associated Comments Diagnosis URINALYSIS-MICROSCOPI Routine 05/27/2022 11:03 Cystitis Re sults [...] in this encounter Results (ABNORMAL) Urine culture (05/27/2022 11:03 AM CDT) Patholo gist Method Time Signature Urine Culture Klebsiella pneumoniae 05/30/2022 [facility] STED >100,000 cfu/ml 8:27 AM CDT [facility] ([facility] Specimen Anatomical Collection Method Collection Time Receive d Time (Source) Location / / Volume Laterality Urine (Urine, 05/27/2022 11:03 05/27/2022 5:44 Clean Catch) AM CDT PM CDT Comment: URINE Narrative [facility] - 05/14 8:29 AM CDT TEST [...] - GENERAL O RDERABLES Performing Organization Address City/[facility] [address]/ZIP Code Phon e Number [facility] [address] [place] [address] (ABNORMAL) Urinalysis-Microscopic Exam (05/27/2022 11:03 AM CDT) [facility] Method Time Signature Casts, urine NONE SEEN 0-2 Hyaline 05/27/2022 [place] /lpf 6:02 PM [facility] Significant NONE SEEN None Seen 05/27/2022 [place] casts, urine /lpf 6:02 PM [facility] RBC, Urine 4-10 (A) 0 - 3 /hpf 05/27/2022 [place] 6:02 PM [facility] WBC, Urine 51-100 /hpf 05/27/2022 [place] (A) 6:02 PM [facility] Comment: Male Ref Range ? 0-3/hpf Female Ref Range ?? 0-10/hpf Squamous Epithelial, 1+ (A) Few /lpf 05/27/2022 6:02 PM [facility] LABORATORY Trans Epithelial, 0-3 0 - 3 /hpf 05/27/2022 6:02 PM [facility] LAB[facility] Renal Tubular Cells, 0-1 0 - 1 /hpf 05/27/2022 6:02 PM [facility] Comment: Cells suggestive of renal epithelial corona ls present. Bacteria, Urine 3+ (A) None Seen - Few 05/27/2022 6:02 PM [facility] Specimen Anatomical Collection Method Collection Time Receive d Time (Source) Location / / Volume Laterality 05/27/2022 11:03 05/27/2022 5:44 AM CDT PM CDT Narrative [facility] - 05/14 6:02 PM CDT TEST TO ADD URINE CULTURE John Willingham MD LAB URINE ORDERABLES Performing Organization Address City/[facility] [address]/ZIP Code Phon e Number [facility] [address] [place] [address] (ABNORMAL) Urinalysis with reflex microscopic (05/27/2022 11:03 AM CDT) [facility] Method Time Signature Type CLEAN CATCH 05/27/2022 [...] [place] Specific 1.020 1.000 05/27/2022 [facility] [place], ->=1.030 11:11 AM CDT [place] Urine Blood, Urine TRACE (A) NEGATIVE 05/27/2022 [facility] 11:11 AM CDT [place] pH, Urine 6.0 5.0 - 7.0 05/27/2022 [facility] 11:11 AM CDT [place] Protein, NEGATIVE NEGATIVE-TRA 05/27/2022 [facility] Urine CE mg/dL 11:11 AM CDT [place] Urobilinogen, 0.2 0.2 - 1.0 05/27/2022 [facility] Urine E.U./dL 11:11 AM CDT [place] Nitrite, POSITIVE (A) NEGATIVE 05/27/2022 [facility] Urine 11:11 AM CDT [place] Leukocytes, LARGE (A) NEGATIVE 05/27/2022 [facility] Urine 11:11 AM CDT [place] Specimen Anatomical Collection Method Collection Time Receive d Time (Source) Location / / Volume Laterality Urine (Urine, 05/27/2022 11:03 05/27/2022 Clean Catch) AM CDT 11:03 AM CDT John Willingham MD LAB URINE ORDERABLES Performing Organization Address City/State/ZIP Code Phon e Number [facility] [place] [address] [place] [id number] documented in this encounter Visit Diagnoses Diagnosis Cystitis Unspecified cystitis documented in this encounter Care Teams Telephone Surveyor Relationship Specialty Start Date End Date John Willingham MD PCP - General 05/26/[address] [place] [phone] documented as of this encounter
--- OUTSIDE RECORDS SUMMARY | 2022-06-30 13:47 | XMS_ITS | Clinical Summary ---
:1940 Author Organization [facility] [place] [address] Care Team Providers Name Role Phone Mayra Hong Sera [employer] JOURNEYMAN Unavailable Tarsha CRAWFORD MD, John Conteh Primary Care Provider [phone] Allergies Active Allergy Reactions Severity Noted Date Comments Ampicillin *Unknown, Itching 10/28/2014 Tramadol Itching 11/06/2012 Medications Medication Sig Dispensed Refills Start Date End Date Status omega-3 fatty Take 1 capsule 0 06/06/2012 Active acids-vitamin E (FISH by mouth once OIL) 1,000 mg cap daily. Blood-Glucose Meter Dispense glucose 1 Device 0 08/01/2012 Active (CONTOUR NEXT EZ meter, test METER)Indications: strips and Diabetes mellitus (HC) lancets covered by the patient insurance. Test 3 times per day. DX 250.00 cholecalciferol Take 3,000 Units 0 11/10/2014 Active (VITAMIN D) 1,000 unit by mouth once capsule daily. lancetsIndications: Dispense item 200 Each 5 03/22/2016 Active Type 2 diabetes covered by pt mellitus without ins. E11.9 NIDDM complication (HC) type II - Test 2 times/day. Reason: High A1C blood sugar diagnostic Dispense item 300 Strip 3 02/24/2021 Active (Contour Next Test covered by pt Strips) ins.TEST 3 TIMES stripIndications: Type DAILY. 2 diabetes mellitus without complication (HC) flash glucose sensor As directed. 1 Kit 0 06/01/2021 Active (FreeStyle Barbie 14 Day Sensor) kitIndications: Type 2 diabetes mellitus without complication, without long-term current use of insulin (HC) flash glucose scanning As directed. 2 Each 11 06/01/2021 Active reader ([employer] Barbie 14 Day Raphine) miscIndications: Type 2 diabetes mellitus without complication, without long-term current use of insulin (HC) glipiZIDE (GLUCOTROL) 5 Take 1 Tablet (5 180 Tablet 2 10/08/19 22 Active mg tabletIndications: mg) by mouth 2 Type 2 diabetes times daily mellitus without before meals. complication, without long-term current use of insulin (HC) metFORMIN (GLUCOPHAGE) TAKE 2 TABLETS 360 Tablet 2 10/25/2021 Active 500 mg BY MOUTH TWICE A tabletIndications: Type DAY WITH MEALS 2 diabetes mellitus without complication, without long-term current use of insulin (HC) Active Problems Problem Noted Date Mixed hyperlipidemia 03/17/2016 Type 2 diabetes mellitus without complication 10/09/19 16 S/P hip replacement 03/17/2014 Neuropathy 11/06/2012 Resolved Problems Problem Noted Date Resolved Date Effusion of left hip 04/08/2015 03/22/2016 Anticoagulation monitoring, special range( 1.8 to 2.5) 03/1703/22/2016 Severe bilateral hip osteoarthritis 12/27/2012 08/0 04/2016 Mixed hyperlipidemia 06/06/2012 03/22/2016 Diabetes mellitus 05/01/2012 10/09/2015 Right hip pain 05/01/2012 05/01/2012 Pain in joint, lower leg 05/01/2012 05/01/2012 Arthritis 05/01/2012 12/27/2012 Family History Medical History Relation Name Comments Diabetes Brother 1 Hypertension Brother 2 Hyperthyroidism Daughter Thyroid cancer Daughter Hypertension Father Diabetes Mother Hypertension Mother Stroke Sister Relation Name Status Comments Brother 1 Brother 2 Daughter Father (Age 72) [place] Mother (Age 69) Sister (Age 40) aneurysm Social History Tobacco Use Types Packs/Day Years Used Date Never Smoker Smokeless Tobacco: Never Used Tobacco Cessation: Counseling Given: Yes Alcohol Use Standard Drinks/Week Comments Yes 0 (1 standard drink = 0.6 oz pure alcoho l) occasion Alcohol Habits Answer Date Recorded How often do you have a drink containing alcohol? Not asked How many drinks containing alcohol do you have on a typical Not asked day when you are drinking? How often do you have six or more drinks on one occasion? No t asked Comment: occasion 05/01/2012 Sex Assigned at Date Recorded Not on file Obstetrics History Para Term AB IAB SAB Ectopic Multiple Living Live Births 5 5 Date Outcome GA Total Labor/2nd/3rd Weight Sex Delivery Anes PTL Etta A 1 A5 Name Clin Labor Last Filed Vital Signs Vital Sign Reading Time Taken Comments Blood Pressure 118/71 10/25/2021 1:45 PM CDT Pulse 82 10/25/2021 1:45 PM CDT Temperature 36.9 ??C (98.5 ??F) 12/31/2018 10:38 AM CDT Respiratory Rate 18 12/11/2014 10:00 AM CDT Oxygen Saturation 96% 10/25/2021 1:45 PM CDT Inhaled Oxygen Concentration - - Weight 60.1 kg (132 lb 8 oz) 10/25/2021 1:45 PM CDT Height 154.9 cm (5' 1) 05/04/2020 11:11 AM CDT Body Mass Index 25.04 05/04/2020 11:11 AM CDT Plan of Treatment Health Maintenance Due Date Last Done Comments COVID-19 vaccine series (#1) 01/15/1941 Pneumococcal series for age 65+ (1 1944 - PCV) Tdap 1949 Tetanus booster 1958 Zoster (shingles) series for age 1207/17/1988 50+ (1 of 2) DEXA/DXA scan for age 65+ 2003 Medicare Wellness for age 65+ 2003 BMI (ht and wt on same day) for 05/04/2021 05/04/2020, 12/13, age 18+ 05/14/2018, Additional history exists Influenza for age 65+ 04/14/2022 Depression screening for age 12+ 10/11/2022 10/11/2021, , 05/29/2018, Additional history exists Results Not on filefrom Last 3 Months Insurance Payer Benefit Plan / Subscriber ID Effective Dates Phone Addre ss Type Group MEDICARE - PB MEDICARE [place] [id number] 2003-Prese ATTN : CLAIMS USE ONLY ONLY nt [address] [place] [address] MEDICARE PPS HC MEDICARE [id number] 2003-Prese [address] [place] [address] Charla Graham Personal/Family Self 1940 [address] (Home) [place] [address] Care Teams Academic Physician Relationship Specialty Start Date End Date John Willingham II, PCP - General Family Practice 05/03/[address] [place] [address] Mayra Hong NP Nurse Practitioner Nurse Practitioner 11/07/14
--- OUTSIDE RECORDS SUMMARY | 2022-06-30 13:47 | XMS_ITS | Encounter Summary ---
:1940 Author Organization [facility] Address [address] [place] [address] Care Team Providers Name Role Phone None, Pcp Primary Care Provider Unavailable Reason for Visit Reason Comments Results Encounter Details Date Type Department Care Team Description 02/01/2022 Office Visit [place] John Willingham Cystitis (Primary Dx); [address] M.MD Fatigue, unspecified type; [place], [place] [address] Hypercalcemia [address] [place], [place] [phone] Social History Tobacco Use Types Packs/Day Years [...] Sign Reading Time Taken Comments Blood Pressure 104/58 02/01/2022 1:16 PM CDT Pulse 98 02/01/2022 1:16 PM CDT Temperature 37.1 ??C (98.8 ??F) 02/01/2022 1:16 PM CDT Respiratory Rate 16 02/01/2022 1:16 PM CDT Oxygen Saturation 96% 02/01/2022 1:16 PM CDT Inhaled Oxygen Concentration - - Weight 56.2 kg (123 lb 12.8 oz) 02/01/2022 1:16 PM CDT Height - - Body Mass Index 22.9 11/05/2021 10:48 AM CDT documented in this encounter Patient Instructions Patient InstructionsCharshalini Willingham MD - 02/01/2022 1:47 PM CDT No fluids 2 hours before bed. documented in this encounter Progress Notes John Willingham MD - 02/01/2022 1:20 PM CDT Subjective Patient ID: Charla Graham is a 81 y.o. female. Chief Complaint Patient presents with ??? Results HPI Patient was treated empirically for UTI with Macrobid after dropping off urine sample that eventually grew susceptible E. Coli on 01/27/2022. She completed treatment with Macrobid. However, still has ongoing symptoms of bladder irritability. She was also recently treated for ESBL E coli In October 2021 just 3 months ago that was susceptible to Macrobid which is why this medication was chosen empiricallyon 01/27/22. Denies fevers, chills, new back pain, abdominal pain, hematuria. She seems to be having to urinate more frequently but just in the evening. Not sleeping as well because of this and has beenmore fatigued and tired throughout the day, though still being active, going out and shopping all day some days and not having any accidents. She is also wondering about her diabetes. Last A1C was 8.1 on 10/08/21. She is taking metformin 1000 mg BID and glucotrol 5 mg BID 30 minutes before meals. Blood sugar checks 3 times per day and has been ranging from 120s-200. The following portions of the patient's chart were reviewed in this encounter and updated as appropriate: Tobacco Allergies Meds Problems Med Hx Surg Hx OB Status Fam Hx ROS ROS done as noted in HPI Objective Visit Vitals BP 104/58 (BP Location: Left arm, Patient Position: Sitting) Pulse 98 Temp 37.1 ??C (98.8 ??F) (Temporal) Resp 16 Wt 56.2 kg (123 lb 12.8 oz) SpO2 96% BMI 22.90 kg/m?? OB Status Postmenopausal Smoking Status Never Smoker BSA 1.56 m?? Physical Exam Vitals reviewed. Constitutional: General: She is not in acute distress. Appearance: She is not ill-appearing, toxic-appearing or diaphoretic. Abdominal: General: Bowel sounds are normal. Palpations: Abdomen is soft. Tenderness: There is no abdominal tenderness. There is no right CVA tenderness, left CVA tendernessor guarding. Assessment Diagnosis Plan 1. Cystitis cephalexin (KEFLEX) 500 MG capsule Add-On Test Request Add-On Test Request 2. Fatigue, unspecified type 3. Hypercalcemia Urinalysis with reflex microscopic Calcium, ionized Hemoglobin A1c Urinalysis with reflex microscopic Vitamin D, Total ([facility] preferred) Urinalysis-Microscopic Exam Given ongoing UTI (UA suggestive of ongoing infection) will start keflex. Pending culture results. Discussed that if culture comes back positive again she should probably be on suppressive antibiotic therapy for 6-12 months given this would be 2nd UTI in the past 3 months (recurrent UTI). Also reviewed that her LFT's have normalized. Her calcium was slightly elevated and patient and daughter want to minimize work up at this time. Will check calcium to confirm and vitamin D level. Discussed that it is slightly elevated and lots of causes for this, some benign and some more concerning like cancer. High calcium can cause increased urination as well as poorly controlled diabetes. We will check her A1C as this is due. They did not want to make any changes to her medications at this time and will readdress pending A1C result. She would likely benefit from additional therapy consideration of Actos would not be expensive as newer drugsand she does not have any contraindications for that. She has lost about 4-5 pounds over the past 3 months and will continue to monitor. BMI is 22.9. Patient Instructions No fluids 2 hours before bed. Return in about 2 weeks (around 02/15/2022) for Recheck. Note created using voice dictation software. Total time spent in patient care was over 30 minutes which included the pre- work, visit work, and post-visit work. documented in this encounter Plan of Treatment Not on filedocumented as of this encounter Procedures Procedure Name Priority Date/Time Associated Diagnosis Comme nts ADD-ON TEST REQUEST Routine 02/01/2022 2:23 PM Cystitis Re sults for this CDT procedure are i n the results section. URINALYSIS-MICROSCOP Routine 02/01/2022 2:05 PM Hypercalcemia Results for this IC EXAM (REFLEXED) CDT procedure are in the results section. URINALYSIS WITH Routine 02/01/2022 2:05 PM Hypercalcemia Resul ts for this REFLEX MICROSCOPIC CDT procedure are in the results section. URINE CULTURE Routine 02/01/2022 2:05 PM Results for this CDT procedure are i n the results section. documented in this encounter Results Vitamin D, Total ([facility] preferred) (02/09/2022 10:57 AM CDT) P athologist Signature Vitamin D, 46.7 ng/mL 02/10/2022 [facility] 1:15 PM CDT [facility] Comment: Deficient ?<20 ? ng/mL [...] Organization Address City/State/ZIP Code Phon e Number [facility] [address] [place] [address] (ABNORMAL) Hemoglobin A1c (02/09/2022 10:57 AM CDT) Analysis Performed At Patho logist Time Signature Hemoglobin A1C 6.2 (H) 4.0 - 5.6 02/10/2022 [place] % A1C 1:25 PM [facility] Comment: Reference Range 4.0-5.6% is for [...] MD LAB BLOOD ORDERABLES Performing Organization Address City/[facility]/ZIP Code Phon e Number [facility] [address] [place] [id number] Add-On Test Request (02/01/2022 2:23 PM CDT) [facility] Method Time Signature Add-on Testing SEE BELOW 02/01/2022 [facility] 2:51 PM CDT [facility] Comment: Urine Culture added to orignal order. Pr ovider infromed Specimen Anatomical Collection Method Collection Time Receive d Time (Source) Location / / Volume Laterality 02/01/2022 2:23 PM 2:23 CDT PM CDT John Willingham MD LAB BLOOD ORDERABLES Performing Organization Address City/[facility]/ZIP Code Phon e Number [facility] [address] [place] [phone] (ABNORMAL) Urine culture (02/01/2022 2:05 PM CDT) [facility] Method Time Signature Urine Culture Escherichia coli 02/04/2022 [facility] >100,000 cfu/ml 7:43 AM CDT [facility] () [facility] Specimen Anatomical Collection Method Collection Time Receive d Time (Source) Location / / Volume Laterality Urine (Urine, 02/01/2022 2:05 PM 02/03/20 22 Clean Catch) CDT 12:36 PM CDT Comment: URINE Narrative [facility] - 01/13 7:45 AM CDT Urine Culture added to original order. Organism Antibiotic Method Susceptibility Escherichia coli Ampicillin <=8 mcg/mL: Magali ceptible Escherichia coli Ampicillin/Sulbactam <=8/4 mcg/ mL: Susceptible Escherichia coli Cefazolin <=2 mcg/mL: Magali ceptible Escherichia coli Ciprofloxacin <=0.25 mcg/mL: Susceptible Escherichia coli Gentamicin <=4 mcg/mL: Magali ceptible Escherichia coli Levofloxacin <=0.5 mcg/mL: S usceptible Escherichia coli Nitrofurantoin >64 mcg/mL: Res istant Escherichia coli Trimeth/Sulfa <=2/38 mcg/mL: Susceptible John Willingham MD LAB MICROBIOLOGY - GENERAL O RDERABLES Performing Organization Address City/State/ZIP Code Phon e Number [facility] [address] [place] [address] (ABNORMAL) Urinalysis-Microscopic Exam (02/01/2022 2:05 PM CDT) [facility] Method Time Signature Casts, urine NONE SEEN 0-2 Hyaline 02/02/2022 [facility] /lpf 1:08 PM [facility] Significant NONE SEEN None Seen 02/02/2022 [place] casts, urine /lpf 1:08 PM [facility] RBC, Urine 4-10 (A) 0 - 3 /hpf 02/02/2022 [place] 1:08 PM [facility] WBC, Urine 51-100 /hpf 02/02/2022 [place] (A) 1:08 PM [facility] Comment: Male Ref Range ? 0-3/hpf Female Ref Range ?? 0-10/hpf Squamous Epithelial, 1+ (A) Few /lpf 02/02/2022 1:08 PM [facility] Trans Epithelial, 0-3 0 - 3 /hpf 02/02/2022 1:08 PM [facility] Urine T [facility] Renal Tubular Cells, NONE SEEN 0 - 1 /hpf 02/02/2022 1:08 PM [facility] Bacteria, Urine 3+ (A) None Seen 02/02/2022 1:08 PM [facility] Specimen Anatomical Collection Method Collection Time Receive d Time (Source) Location / / Volume Laterality 02/01/2022 2:05 PM CDT 12:[address] [facility] - 01/13 1:08 PM CDT Urine Culture added to original order. John Willingham MD LAB URINE ORDERABLES Performing Organization Address City/State/ZIP Code Phon e Number [facility] [address] [place] [address] (ABNORMAL) Urinalysis with reflex microscopic (02/01/2022 2:05 PM CDT) [facility] Method Time Signature Type CLEAN CATCH 02/01/2022 [facility] 2:12 PM [facility] [place] Color, Urine YELLOW YELLOW 02/01/2022 [facility] 2:12 PM [facility] [place] Clarity, CLEAR CLEAR 02/01/2022 [facility] Urine 2:12 PM [facility] [place] Glucose, 100 (A) NEGATIVE 02/01/2022 [facility] Urine mg/dL 2:12 PM [facility] [place] Bilirubin, NEGATIVE NEGATIVE 02/01/2022 [facility] Urine 2:12 PM [facility] [place] Ketones, NEGATIVE NEGATIVE 02/01/2022 [facility] Urine mg/dL 2:12 PM [facility] [place] Specific >=1.030 1.000 02/01/2022 [facility] [place], ->=1.030 2:12 PM [facility]T [place] Urine Blood, Urine SMALL (A) NEGATIVE 02/01/2022 [facility] 2:12 PM [facility] [place] pH, Urine 5.0 5.0 - 7.0 02/01/2022 [facility] 2:12 PM [facility] [place] Protein, 30 (A) NEGATIVE-TRA 02/01/2022 [facility] Urine CE mg/dL 2:12 PM [facility]T [place] Urobilinogen, 0.2 0.2 - 1.0 02/01/2022 [facility] Urine E.U./dL 2:12 PM [facility]T [place] Nitrite, POSITIVE (A) NEGATIVE 02/01/2022 [facility] Urine 2:12 PM [facility] [place] Leukocytes, SMALL (A) NEGATIVE 02/01/2022 [facility] Urine 2:12 PM [facility] [place] Specimen Anatomical Collection Method Collection Time Receive d Time (Source) Location / / Volume Laterality Urine (Urine, 02/01/2022 2:05 PM 02/02/20 2:05 Clean Catch) CDT PM CDT John Willingham MD LAB URINE ORDERABLES Performing Organization Address City/State/ZIP Code Phon e Number [facility] [place] [address] [place] [address] documented in this encounter Visit Diagnoses Diagnosis Cystitis - Primary Unspecified cystitis Fatigue, unspecified type Hypercalcemia documented in this encounter Care Teams Vessel Slag Worker Relationship Specialty Start Date End Date None, Pcp PCP - General Plaster Mechanic 11/02/21 05/25/22 [address] [place] [address] documented as of this encounter
--- OUTSIDE RECORDS SUMMARY | 2022-06-30 13:47 | XMS_ITS | Encounter Summary ---
:1940 Author Organization [facility] Address [address] [place] [address] Care Team Providers Name Role Phone None, Pcp Primary Care Provider Unavailable Reason for Visit Reason Onset Date Comments Ionized calcium 02/09/2022 Encounter Details Date Type Department Care Team Description 02/09/2022 Telephone Lj Smith None, Pcp Ionized calcium [address] [facility] [place] [place] [address] [place], [place] [phone] [address] Social History Tobacco Use Types Packs/Day [...] this encounter Miscellaneous Notes Telephone Encounter - Mayra Chapman LPN - 02/09/2022 2:22 PM CDT noted Telephone Encounter - John Willingham MD - 02/09/2022 1:38 PM CDT This can be canceled. Will address at next follow up with patient. Telephone Encounter - Mayra Chapman LPN - 02/09/2022 11:02 AM CDT Provider ordered a ionized calcium. This cannot be done if any branch clinic as [facility]. This can only be drawn at the or Hospital lab. Please reorder if you see necessary. documented in this encounter Plan of Treatment Not on filedocumented as of this encounter Visit Diagnoses Not on filedocumented in this encounter Care Teams Associate Dentist Relationship Specialty Start Date End Date None, Pcp PCP - General Associate Programmer Analyst 11/02/21 05/25/22 [address] [place] [address] documented as of this encounter
--- OUTSIDE RECORDS SUMMARY | 2022-06-30 13:47 | XMS_ITS | Encounter Summary ---
:1940 Author Organization [facility] Address [address] [place] [address] Care Team Providers Name Role Phone John Willingham MD Primary Care Provider Reason for Visit Reason Onset Date Comments medication questions 05/30/2022 Encounter Details Date Type Department Care Team Description 05/30/2022 Telephone Mobile John Willingham, medication questions [address] [place], [place] [address] [facility] [address] [place] [phone] [place] [address] (Wo rk) Social History Tobacco Use Types [...] Telephone Encounter - John Willingham MD - 06/02/2022 3:48 PM CDT Noted thanks Telephone Encounter - Nancy Reyes RN - 06/01/2022 10:30 AM CDT FYI: Patient scheduling appointment for next Monday, as she wants to wait until treatmentis complete (she started medication on Monday, 05/30). Lab is also here in [place] that afternoon. Daughter was also called and agrees to patient's appointment. Telephone Encounter - Mayra Chapman LPN - 05/30/2022 1:59 PM CDT Images from the original note were not included. John Willingham MD [facility] Nurse Please call patient and daughter Maia and have patient schedule follow up with me for this week ( or Monday whichever works better and prefer we have lab available when she comes in to recheckher urine). Please inform her that her urine culture was susceptible to the Macrobid. The nurse left a message for her to call back Telephone Encounter - Kerrie Mccarthy - 05/30/2022 12:44 PM CDT Questions regarding medications. Advise. [phone]. documented in this encounter Plan of Treatment Not on filedocumented as of this encounter Visit Diagnoses Not on filedocumented in this encounter Care Teams Rn Shift Mgr Relationship Specialty Start Date End Date John Willingham MD PCP - General 05/26/[address] [place] [address] documented as of this encounter
--- OUTSIDE RECORDS SUMMARY | 2022-06-30 13:47 | XMS_ITS | Encounter Summary ---
:1940 Author Organization [facility] Address [address] [place] [address] Care Team Providers Name Role Phone John Willingham MD Primary Care Provider Reason for Visit Reason Comments Follow-up Encounter Details Date Type Department Care Team Description 06/07/2022 Office Visit Yesenia Smith John Willingham, Recurrent cystitis (Primary Dx); [address] [facility] [address] Type 2 diabetes mellitus without complic ation, without long-term current use of insulin (HCC); [place], [place] [address] Medication side effect [id number] [place], [place] [phone] Social History Tobacco Use Types Packs/Day Years [...] (127 lb) 06/07/2022 10:58 AM CDT Height - - Body Mass Index 23.49 11/05/2021 10:48 AM CDT documented in this encounter Progress Notes Rosita Collins - 06/07/2022 11:00 AM CDT Subjective Patient ID: Charla Graham is a 81 y.o. female. Assessment/Plan Diagnosis Plan 1. Recurrent cystitis 2. Type 2 diabetes mellitus without complication, without long-term current use of insulin (HCC) 3. Medication side effect There are no Patient Instructions on file for this visit. Follow up on urinary tract infection. -Advised not to take liquids 1 to 2 hours before bedtime. If need something to wet mouth take a sip of water, no sugary stuff. -Patient and her daughter had questions related to UTI versus kidney infection. They were explained in detail difference between both and all their questions were answered to their satisfaction. -Check kidney function test and A1c in 6 months. -Follow up in 6 months. Chief Complaint Patient presents with ??? Follow-up Charla Graham is an 81-year-old female comes in today with her daughterAntonia for follow up of her UTI. Urinary tract infection. -Finished Macrobid 2 days ago, took it for 7 days. -Drinks a lot of liquid before going to bed, mostly juices. -1 glass of juice, water in between, and tea. -No pain with urination. -No frequent urination during daytime. -Gets up 4 times at night to use washroom. -She has only 1 kidney. -Wears incontinence pads at night. -Urine sample sent for testing. Diabetes. -Cut down on metformin, feels much better, not tired. -Just taking 1 tablet a day of metformin since 3 weeks. -A1c in 01/2022 was 6.2 and 8.1 in 09/2021. General health. -Sleeps 4 hours a night. -Uses melatonin 1 tablet once in a while. Past Medical History: Diagnosis Date ??? Diabetes mellitus (HCC) ??? Elevated liver enzymes 11/08/2021 Past Surgical History: Procedure Laterality Date ??? PARTIAL NEPHRECTOMY ??? TOTAL HIP ARTHROPLASTY Bilateral ROS ROS done as noted in HPI. Objective Visit Vitals BP 118/60 (BP Location: Left arm, Patient Position: Sitting) Pulse 97 Temp 98.8 ??F (37.1 ??C) (Temporal) Resp 16 Wt 127 lb SpO2 97% BMI 23.49 kg/m?? OB Status Postmenopausal Smoking Status Never Smoker BSA 1.58 m?? Abdomen: No suprapubic tenderness or guarding of the abdomen. No CVA tenderness. General: Alert. No distress. Vitals: Reviewed. Results A1c in 01/2022 was 6.2. A1c in 09/2021 was 8.1. ATTESTATION: This note has been created using [employer] e[employer]ience by Sahra Oleary and was completed in the EHR by Rosita [place]. documented in this encounter Plan of Treatment Not on filedocumented as of this encounter Visit Diagnoses Diagnosis Recurrent cystitis - Primary Unspecified cystitis Type 2 diabetes mellitus without complic ation, without long-term current use of insulin (HCC) Medication side effect documented in this encounter Care Teams Stevedore Dock Relationship Specialty Start Date End Date John Willingham MD PCP - General 05/26/[address] [place] [address] documented as of this encounter
--- OUTSIDE RECORDS SUMMARY | 2022-06-30 13:47 | XMS_ITS | Encounter Summary ---
:1940 Author Organization [facility] Address [address] [place] [address] Care Team Providers Name Role Phone None, Pcp Primary Care Provider Unavailable Encounter Details Date Type Department Care Team Description 01/24/2022 Lab Yesenia Smith Elevated liver enzymes; [address] Bladder irritability CLARIBEL Culp 550 09 Social History Tobacco [...] Name Priority Date/Time Associated Diagnosis Comme nts GLOMERULAR Routine 01/24/2022 1:54 PM Results f or this FILTRATION RATE CDT procedure ar e in the results section. URINALYSIS-MICROSCOP Routine 01/24/2022 1:54 PM Bladder irrita bility Results for this IC EXAM (REFLEXED) CDT procedure are in the results section. CREATININE, SERUM Routine 01/24/2022 1:54 PM Resu lts for this CDT procedure are i n the results section. URINALYSIS WITH Routine 01/24/2022 1:54 PM Bladder irritabilit y Results for this REFLEX MICROSCOPIC CDT procedure are in the results section. HEPATIC FUNCTION Routine 01/24/2022 1:54 PM Elevated liver Res ults for this PANEL CDT enzymes procedure are i n the results section. URINE CULTURE Routine 01/24/2022 1:45 PM Bladder irritability Results for this CDT procedure are i n the results section. documented in this encounter Results Glomerular filtration rate (GFR) (01/24/2022 1:54 PM CDT) athologist Signature GFR >60 01/25/2022 [facility] 1:28 PM CDT [facility] >60 01/25/2022 [facility] Croatian GFR 1:28 PM T [facility] Comment: GFR calculated from serum creatinine v alue Chronic Kidney Disease less than 60 mL/m in/1.73 m2 Kidney Failure less than 15 mL/min/1.73 m2 IDMS-Traceable MDRD Study Equation used. Specimen Anatomical Collection Method Collection Time Receive d Time (Source) Location / / Volume Laterality 01/24/2022 1:54 PM 2 1:54 CDT PM CDT John Willingham MD LAB BLOOD ORDERABLES Performing Organization Address City/[facility]/ZIP Code Phon e Number [facility] [address] [place] [phone] Creatinine, Serum (01/24/2022 1:54 PM CDT) athologist Signature Creatinine 0.8 0.4 - 1.2 01/25/2022 [facility] mg/dL 1:28 PM CDT [facility] Specimen Anatomical Collection Method Collection Time Receive d Time (Source) Location / / Volume Laterality 01/24/2022 1:54 PM 2 CDT 12:43 PM CDT John Willingham MD LAB BLOOD ORDERABLES Performing Organization Address City/[facility]/ZIP Code Phon e Number [facility] [address] [place] [phone] (ABNORMAL) Urinalysis-Microscopic Exam (01/24/2022 1:54 PM CDT) [facility] gist Method Time Signature Casts, urine NONE SEEN 0-2 Hyaline 01/25/2022 [facility] /lpf 2:02 PM [facility] Significant NONE SEEN None Seen 01/25/2022 [facility] casts, urine /lpf 2:02 PM [facility] RBC, Urine 4-10 (A) 0 - 3 /hpf 01/25/2022 [facility] 2:02 PM [facility] WBC, Urine >100 (A) /hpf 01/25/2022 [facility] 2:02 PM [facility] Comment: Male Ref Range ? 0-3/hpf Female Ref Range ?? 0-10/hpf Squamous Epithelial, 1+ (A) Few /lpf 01/25/2022 2:02 PM [facility] Trans Epithelial, NONE SEEN 0 - 3 /hpf 01/25/2022 2:02 PM [facility] Urine [facility] Renal Tubular Cells, NONE SEEN 0 - 1 /hpf 01/25/2022 2:02 PM [facility] Urine [facility] Bacteria, Urine 3+ (A) None Seen 01/25/2022 2:02 PM [facility] Specimen Anatomical Collection Method Collection Time Receive d Time (Source) Location / / Volume Laterality 01/24/2022 1:54 PM CDT 12:23 PM CDT John Willingham MD LAB URINE ORDERABLES Performing Organization Address City/State/ZIP Code Phon e Number [facility] [address] [place] [address] (ABNORMAL) Urinalysis with reflex microscopic (01/24/2022 1:54 PM CDT) [facility] Method Time Signature Type CLEAN CATCH 01/24/2022 [facility] 2:04 PM [facility] [place] Color, Urine [...] [place] Specific 1.025 1.000 01/24/2022 [facility] [place], ->=1.030 2:04 PM [facility] [place] Urine Blood, Urine MODERATE (A) NEGATIVE 01/24/2022 [facility] 2:04 PM [facility] [place] pH, Urine 5.0 5.0 - 7.0 01/24/2022 [facility] 2:04 PM [facility] [place] Protein, 100 (A) NEGATIVE-TRA 01/24/2022 [facility] Urine CE mg/dL 2:04 PM [facility] [place] Urobilinogen, 0.2 0.2 - 1.0 01/24/2022 [facility] Urine E.U./dL 2:04 PM [facility] [place] Nitrite, POSITIVE (A) NEGATIVE 01/24/2022 [facility] Urine 2:04 PM [facility] [place] Leukocytes, LARGE (A) NEGATIVE 01/24/2022 [facility] Urine 2:04 PM CDT [place] Specimen Anatomical Collection Method Collection Time Receive d Time (Source) Location / / Volume Laterality Urine (Urine, 01/24/2022 1:54 PM 01/25/20 1:57 Clean Catch) CDT PM CDT John Willingham MD LAB URINE ORDERABLES Performing Organization Address City/State/ZIP Code Phon e Number [facility] YESENIA SMITH [address] [place] [address] Liver panel (01/24/2022 1:54 PM CDT) P athologist Signature Total Protein 7.7 6.3 - 8.2 01/25/2022 [facility] g/dL 1:28 PM [facility] Albumin, Serum 4.5 3.5 - 5.0 01/25/2022 [facility] g/dL 1:28 PM [facility] Total Bilirubin <0.7 0.1 - 1.0 01/25/2022 [facility] mg/dL 1:28 PM [facility] Bilirubin, <0.1 0.0 - 0.3 01/25/2022 [facility] Direct mg/dL 1:28 PM [facility] AST 41 8 - 43 U/L 01/25/2022 [facility] 1:28 PM [facility] Alkaline 52 38 - 128 01/25/2022 [facility] Phosphatase U/L 1:28 PM [facility] ALT (SGPT) 27 0 - 34 U/L 01/25/2022 [facility] 1:28 PM [facility] Specimen Anatomical Collection Method Collection Time Receive d Time (Source) Location / / Volume Laterality Blood (Blood, 01/24/2022 1:54 PM 01/26/20 Venous) CDT 12:43 PM CDT John Willingham MD LAB BLOOD ORDERABLES Performing Organization Address [facility] Phon e Number [facility] [address] [place] [phone] (ABNORMAL) Urine culture (01/24/2022 1:45 PM CDT) [facility] Method Time Signature Urine Culture Escherichia coli 01/26/2022 [facility] >100,000 cfu/ml 8:16 AM CDT [facility] (A) [facility] Specimen Anatomical Collection Method Collection Time Receive d Time (Source) Location / / Volume Laterality Urine (Urine, 01/24/2022 1:45 PM 01/26/20 Clean Catch) CDT 11:58 AM CDT Comment: URINE Narrative [facility] - 01/12 8:17 AM CDT Patient [...] - GENERAL O RDERABLES Performing Organization Address City/[facility]/ZIP Code Phon e Number [facility] [address] [place] [phone] documented in this encounter Visit Diagnoses Diagnosis Elevated liver enzymes Other nonspecific abnormal serum enzyme levels Bladder irritability Other specified disorder of bladder documented in this encounter Care Teams Bond Manager Relationship Specialty Start Date End Date None, Pcp PCP - General Hand Marker 11/02/21 05/25/22 [address] [place] [phone] documented as of this encounter
--- OUTSIDE RECORDS SUMMARY | 2022-06-30 13:48 | XMS_ITS | Encounter Summary ---
:1940 Author Organization [facility] Address [address] [place] [address] Care Team Providers Name Role Phone None, Pcp Primary Care Provider Unavailable Reason for Visit Reason Comments UTI Encounter Details Date Type Department Care Team Description 11/02/2021 Office Visit Yesenia Smith John Willingham ESBL (extended spectrum beta -lactamase) producing bacteria infection (Primary Dx); [address] M.MD Urinary retention; [place] [address] Cystitis with hematuria; [address] [place], [place] Urethritis; [phone] Acute vaginitis; [phone] Hypercalcemia (Work) Social History Tobacco Use Types Packs/Day Years Used Date Smoking Tobacco: Never Smokeless Tobacco: Never Alcohol Use Standard Drinks/Week Comments Not Currently 0 (1 standard drink = 0.6 oz pure alcoho l) Sex Assigned at Date Recorded Not on file documented as of this encounter Last Filed Vital Signs Vital Sign Reading Time Taken Comments Blood Pressure 92/50 11/02/2021 10:24 AM CDT Pulse 80 11/02/2021 10:24 AM CDT Temperature 37.2 ??C (99 ??F) 11/02/2021 10:24 AM CDT Respiratory Rate 20 11/02/2021 10:24 AM CDT Oxygen Saturation 95% 11/02/2021 10:24 AM CDT Inhaled Oxygen Concentration - - Weight 57.8 kg (127 lb 8 oz) 11/02/2021 10:24 AM CDT Height 156.4 cm (5' 1.58) 11/02/2021 10:24 AM CDT Body Mass Index 23.64 11/02/2021 10:24 AM CDT documented in this encounter Progress Notes John Willingham MD - 11/02/2021 10:20 AM CDT Subjective Patient ID: Charla Graham is a 81 y.o. female. Chief Complaint Patient presents with ??? UTI HPI Patient new to clinic, 81 year old with a history of diabetes on metformin and glipizide here for urinary issues. Patient reports she has not been urinating as much for the past 48 hours. Only a little bit of urinecoming out if at all at a time. This morning she had a back ache she describes as very mild. A couple days ago she had nausea and vomited. Feeling weak, swelling in the genital area and rash on the clitoral area, shaky, stomach ache and headache. She had a cold virus going through family contacts recently so was not sure if that was related. Initially seen about 2.5 weeks ago at [facility] for a UTI. She was treated with something with a C and the culture was not performed. She took this for an unknown amount of time. 2 weeks later It was feeling better and went for follow up and got a urine culture but did not show any specific bacteria. She says she was treated again with bactrim at that time. I do not have records from [facility] to review. About 4-5 days ago she stopped taking the bactrim. She says after starting the bactrim is when the genital rash appeared as well as the stomach ache and headache. She has history of diabetes diagnosed about 6-7 years ago. She normally has urinary frequency at night but now recently not having to urinate at night which she says is odd for her. She is drinking water and juice a lot throughout the day and feeling very thirsty often. 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 She normally does not go to the doctor often and has not done any preventive cancer screening in herlifetime. The following portions of the patient's chart were reviewed in this encounter and updated as appropriate: Tobacco Allergies Meds Med Hx Surg Hx Fam Hx Soc Hx ROS ROS done as noted in HPI Objective Visit Vitals BP (!) 92/50 (BP Location: Left arm, Patient Position: Sitting, BP Cuff Size: Adult) Pulse 80 Temp 37.2 ??C (99 ??F) (Temporal) Resp 20 Ht 1.564 m (5' 1.58) Wt 57.8 kg (127 lb 8 oz) SpO2 95% BMI 23.64 kg/m?? Smoking Status Never Smoker BSA 1.58 m?? Physical Exam Vitals reviewed. Constitutional: Appearance: She is not ill-appearing or diaphoretic. Genitourinary: Comments: Labial swelling and confluent erythema of the genital and pubis area. Urethra is tender and erythematous. Vagina is mildly erythematous. Cervix is firm on digital exam, no masses or fullnessappreciated on bimanual sweep of uterus and adnexa. Neurological: Mental Status: She is alert. Assessment/Plan Diagnosis Plan 1. ESBL (extended spectrum beta-lactamase) producing bacteria infection 2. Urinary retention Urinalysis with reflex microscopic CBC Branch Off w/Diff Basic metabolic panel Add-On Test Request Add-On Test Request 3. Cystitis with hematuria Add-On Test Request Add-On Test Request Add-On Test Request fluconazole (Diflucan) 200 MG tablet 4. Urethritis fluconazole (Diflucan) 200 MG tablet 5. Acute vaginitis Fungal culture, vaginal 6. Hypercalcemia Add-On Test Request Given initial concern for acute urinary retention, I advised we try to catheterize but patient declined for now as she was able to provide a urine sample. I do not have culture results to review and given exam findings and history of diabetes concern for possible yeast infection vaginitis with possible yeast cystitis, initial Rx for diflucan 200 mg BID x 14 days. We obtained cultures. Urine culture came back on Monday and was positive for GNR. I called patient and we started Macrobid 100 mg BID x5d on Monday (called into pharmacy) and instructed to hold diflucan (she had received two doses at this point - which if yeast vaginitis is also present would be sufficient treatment for that. Sensitivities came back on the urine culture and is ESBL E. Coli sensitive to Macrobid. Fungal urine culture in process. Of note in her lab results was borderline high normal WBC with neutrophilia. BMP showed elevated calcium of 10.8 with normal albumin. Her liver panel was notable for AST 77, ALT 172 and Alk Phos 169. We will discuss abdominal imaging at visit on Monday, would recommend at least ultrasound abdomen and possibly CT/ MRI. Return in about 1 week (around 11/09/2021) for Recheck. Note created using voice dictation software. Total time spent in patient care was over 45 minutes which included the pre- work, visit work, and post-visit work. documented in this encounter Plan of Treatment Not on filedocumented as of this encounter Procedures Procedure Name Priority Date/Time Associated Diagnosis Comme nts FUNGAL CULTURE, Routine 11/02/2021 12:10 PM Resul ts for this ROUTINE CDT procedure are i n the results section. FUNGAL CULTURE, Routine 11/02/2021 12:10 PM Resul ts for this VAGINAL CDT procedure are i n the results section. ADD-ON TEST REQUEST Routine 11/02/2021 12:08 PM Urinary retent ion Results for this CDT procedure are i n the results section. ADD-ON TEST REQUEST Routine 11/02/2021 12:07 PM Cystitis with Results for this CDT hematuria procedure are i n the results section. FUNGAL CULTURE, Routine 11/02/2021 12:06 PM Acute vaginitis Re sults for this VAGINAL CDT procedure are i n the results section. ADD-ON TEST REQUEST Routine 11/02/2021 11:01 AM Cystitis with Results for this CDT hematuria procedure are i n the results section. documented in this encounter Results Fungal culture, vaginal (11/02/2021 12:10 PM CDT) P athologist Signature Fungal - 11/07/2021 [facility] Culture, 1:03 PM CDT LABORATORIES Vaginal Comment: SOURCE: URETHRA (FEMALE), urethral mediu s SWAB FUNGAL CULTURE, VAGINAL ?FINAL No growth after 3 days of incubation. Test Performed by: [address] [address] Vice President Network: Mathieu Hall M.D. Ph. D.; CLIA# [id number] Specimen Anatomical Collection Method Collection Time Receive d Time (Source) Location / / Volume Laterality 11/02/2021 12:10 11/03/2021 2:31 PM CDT PM CDT John Willingham MD LAB MICROBIOLOGY - GENERAL O RDERADANNY Performing Organization Address City/State/ZIP Code Phon e Number [facility] see result attachment for specific address Fungal Culture, Routine (11/02/2021 12:10 PM CDT) P athologist Signature Fungal TNP 11/04/2021 [facility] Culture, 11:04 AM CDT LABORATORIES Routine Comment: SOURCE: URETHRA (FEMALE), urethral mediu s SWAB FUNGAL CULTURE, ROUTINE Cancel reason - 11/04/2021 11:01 Test ca nnot be performed on the specimen/source received. Test Performed by: [facility] [address] [place] [address] Vice President Network: Mathieu Hall M.D. Ph. D.; CLIA# [id number] Source urethral medius 11/02/2021 1:55 PM CDT [facility] Specimen Anatomical Collection Method Collection Time Receive d Time (Source) Location / / Volume Laterality 11/02/2021 12:10 11/03/2021 2:31 PM CDT PM CDT John Willingham MD LAB MICROBIOLOGY - GENERAL O RDLISA Performing Organization Address City/[facility]/ZIP Code Phon e Number [facility] see result attachment for specific address Add-On Test Request (11/02/2021 12:08 PM CDT) [facility] Locate Special Diet Method Time Signature Add-on Testing SEE BELOW 11/02/2021 INGOMAR 1:44 PM CDT [facility] Comment: Etta added to original order Specimen Anatomical Collection Method Collection Time Receive d Time (Source) Location / / Volume Laterality 11/02/2021 12:08 11/02/2021 PM CDT 12:08 PM CDT John Willingham MD LAB BLOOD ORDERABLES Performing Organization Address City/State/ZIP Code Phon e Number [facility] [address] [place] [address] Add-On Test Request (11/02/2021 12:07 PM CDT) [facility] Locate Special Diet Method Time Signature Add-on Testing SEE BELOW 11/02/2021 INGOMAR 1:56 PM CDT [facility] Comment: QNS Specimen Anatomical Collection Method Collection Time Receive d Time (Source) Location / / Volume Laterality 11/02/2021 12:07 11/02/2021 PM CDT 12:07 PM CDT John Willingham MD LAB BLOOD ORDERABLES Performing Organization Address [facility]/ZIP Code Phon e Number [facility] [address] [place] [phone] Fungal culture, vaginal (11/02/2021 12:06 PM CDT) athologist Signature Fungal - 11/07/2021 [facility] Culture, 1:03 PM CDT LABORATORIES Vaginal Comment: SOURCE: VAGINA, VAGINAL WALL SWAB FUNGAL CULTURE, VAGINAL ?FINAL No growth after 3 days of incubation. Test Performed by: [facility] [address] [place] [id number] Vice President Network: Mathieu Hall M.D. Ph. D.; CLIA# [id number] Specimen Anatomical Collection Method Collection Time Receive d Time (Source) Location / / Volume Laterality Swab 11/02/2021 12:06 11/03/2021 3:33 PM CDT PM CDT John Willingham MD LAB MICROBIOLOGY - GENERAL O RDERABLES Performing Organization Address City/[facility]/ZIP Code Phon e Number [facility] see result attachment for specific address (ABNORMAL) Basic metabolic panel (11/02/2021 11:10 AM CDT) P athologist Signature Sodium 137 135 - 145 11/02/2021 [facility] mmol/L 11:39 AM CDT [place] Potassium 5.0 3.5 - 5.1 11/02/2021 [facility] mmol/L 11:39 AM CDT [place] Comment: . Chloride 100 98 - 107 mmol/L 11/02/2021 11:39 AM CDT [facility] [place] Comment: . CO2 27 22 - 29 mmol/L 11/02/2021 11:39 AM CDT [facility] [place] Comment: . Creatinine 1.0 0.4 - 1.2 mg/dL 11/02/2021 11:39 AM CDT [facility] [place] Comment: . BUN 22 5 - 25 mg/dL 11/02/2021 11:39 AM CDT [facility] [place] Comment: . Glucose 235 (H) 70 - 100 mg/dL 11/02/2021 11:39 AM [facility] [place] CDT Calcium, Total,S 10.8 (H) 8.4 - 10.2 mg/dL 11/02/2021 11 :39 AM [facility] [place] CDT Comment: . Fasting? No 11/02/2021 11:15 AM CDT [facility] [place] Comment: A glass of coconut milk. Specimen Anatomical Collection Method Collection Time Receive d Time (Source) Location / / Volume Laterality Blood (Blood, 11/02/2021 11:10 11/02/2021 Venous) AM CDT 11:15 AM CDT John Willingham MD LAB BLOOD ORDERABLES Performing Organization Address City/State/ZIP Code Phon e Number [facility] [place] [address] [place] [address] (ABNORMAL) CBC Branch Off w/Diff (11/02/2021 11:10 AM CDT) Analysis Performed At Patho logist Time Signature WBC 10.4 3.5 - 10.5 11/02/2021 [facility] K/uL 11:38 AM CDT [place] RBC 4.27 3.90 - 11/02/2021 [facility] 5.00 M/uL 11:38 AM CDT [place] Hemoglobin 12.7 12.0 - 11/02/2021 [facility] 15.5 g/dL 11:38 AM CDT [place] Hematocrit 38.8 35.0 - 11/02/2021 [facility] 44.0 % 11:38 AM CDT [place] Platelets 302 150 - 450 11/02/2021 [facility] K/uL 11:38 AM CDT [place] MCV 90.9 81.6 - 11/02/2021 [facility] 98.3 fL 11:38 AM CDT [place] MCH 29.7 26.0 - 11/02/2021 [facility] 32.0 pg 11:38 AM CDT [place] MCHC 32.7 32.0 - 11/02/2021 [facility] 36.0 g/dL 11:38 AM CDT [place] RDW 12.2 11.9 - 11/02/2021 [facility] 15.5 % 11:38 AM CDT [place] Lymphocytes % 14.7 % 11/02/2021 [facility] 11:38 AM CDT [place] Mid-size Cells 13.4 % 11/02/2021 [facility] 11:38 AM CDT [place] Granulocytes/Juancarlos 71.9 % 11/02/2021 [facility] trophils 11:38 AM CDT [place] Lymphocytes 1.5 0.9 - 2.9 11/02/2021 [facility] Absolute K/uL 11:38 AM CDT [place] MIDS Absolute 1.4 0.4 - 1.5 11/02/2021 [facility] K/uL 11:38 AM CDT [place] Granulocytes/Juancarlos 7.5 (H) 1.7 - 7.0 11/02/2021 [facility] trophils K/uL 11:38 AM CDT [place] Absolute Specimen Anatomical Collection Method Collection Time Receive d Time (Source) Location / / Volume Laterality Blood 11/02/2021 11:10 11/02/2021 AM CDT 11:15 AM CDT John Willingham MD LAB BLOOD ORDERABLES Performing Organization Address City/[facility]/ZIP Code Phon e Number [facility] [place] [address] [place] [address] Add-On Test Request (11/02/2021 11:01 AM CDT) [facility] Method Time Signature Add-on Testing SEE BELOW 11/02/2021 INGOMAR 1:43 PM CDT [facility] Comment: Urine culture added to original order. Specimen Anatomical Collection Method Collection Time Receive d Time (Source) Location / / Volume Laterality 11/02/2021 11:01 11/02/2021 AM CDT 11:01 AM CDT John Willingham MD LAB BLOOD ORDERABLES Performing Organization Address City/State/ZIP Code Phon e Number [facility] [address] [place] [address] (ABNORMAL) Urinalysis with reflex microscopic (11/02/2021 10:40 AM CDT) [facility] Method Time Signature Type CLEAN CATCH 11/02/2021 [facility] 10:49 AM CDT [place] Color, Urine STRAW YELLOW 11/02/2021 [facility] 10:49 AM CDT [place] Clarity, CLOUDY (A) CLEAR 11/02/2021 [facility] Urine 10:49 AM CDT [place] Glucose, NEGATIVE NEGATIVE 11/02/2021 [facility] Urine mg/dL 10:49 AM CDT [place] Bilirubin, NEGATIVE NEGATIVE 11/02/2021 [facility] Urine 10:49 AM CDT [place] Ketones, NEGATIVE NEGATIVE 11/02/2021 [facility] Urine mg/dL 10:49 AM CDT [place] Specific 1.010 1.000 11/02/2021 [facility] [place], ->=1.030 10:49 AM CDT [place] Urine Blood, Urine SMALL (A) NEGATIVE 11/02/2021 [facility] 10:49 AM CDT [place] pH, Urine 6.0 5.0 - 7.0 11/02/2021 [facility] 10:49 AM CDT [place] Protein, 30 (A) NEGATIVE-TRA 11/02/2021 [facility] Urine CE mg/dL 10:49 AM CDT [place] Urobilinogen, 0.2 0.2 - 1.0 11/02/2021 [facility] Urine E.U./dL 10:49 AM CDT [place] Nitrite, POSITIVE (A) NEGATIVE 11/02/2021 [facility] Urine 10:49 AM CDT [place] Leukocytes, LARGE (A) NEGATIVE 11/02/2021 [facility] Urine 10:49 AM CDT [place] Specimen Anatomical Collection Method Collection Time Receive d Time (Source) Location / / Volume Laterality Urine (Urine, 11/02/2021 10:40 11/02/2021 Clean Catch) AM CDT 10:43 AM CDT John Willingham MD LAB URINE ORDERABLES Performing Organization Address City/State/ZIP Code Phon e Number [facility] [place] [address] [place] [address] documented in this encounter Visit Diagnoses Diagnosis ESBL (extended spectrum beta-lactamase) producing bacteria infection - Primary Infection due to other specified bacteri a in conditions classified elsewhere and of unspecified site Urinary retention Unspecified retention of urine Cystitis with hematuria Unspecified cystitis Urethritis Unspecified urethritis Acute vaginitis Unspecified vaginitis and vulvovaginitis Hypercalcemia documented in this encounter Care Teams Computer Forensic Examiner Relationship Specialty Start Date End Date None, Pcp PCP - General Securities Teller 11/02/21 05/25/22 [address] [place] [address] documented as of this encounter
--- OUTSIDE RECORDS SUMMARY | 2022-06-30 13:48 | XMS_ITS | Encounter Summary ---
:1940 Author Organization [facility] Address [address] [place] [address] Care Team Providers Name Role Phone None, Pcp Primary Care Provider Unavailable Reason for Visit Reason Onset Date Comments Urine fungal culture 11/02/2021 Encounter Details Date Type Department Care Team Description 11/02/2021 Telephone Lj Smith None, Pcp Urine fungal culture [address] [facility] [place] [address] [place], [place] [phone] Social History Tobacco Use Types Packs/Day Years Used Date Smoking Tobacco: Never Smokeless Tobacco: Never Alcohol Use Standard Drinks/Week Comments Not Currently 0 (1 standard drink = 0.6 oz pure alcoho l) Sex Assigned at Date Recorded Not on file documented as of this encounter Miscellaneous Notes Telephone Encounter - Laura Pimentel MA - 11/02/2021 3:36 PM CDT Processed. Specimen will go out tomorrow. Telephone Encounter - Laura Pimentel MA - 11/02/2021 2:[address] [facility] order for urine fungal culture and lab will process. Telephone Encounter - Laura Pimentel MA - 11/02/2021 1:57 PM CDT Quantity not sufficient to process the urine fungal culture. New order would have to be placed with new specimen. documented in this encounter Plan of Treatment Not on filedocumented as of this encounter Results Fungal Culture, Routine (11/02/2021 3:11 PM CDT) P athologist Signature Fungal - 11/28/2021 [facility] Culture, 1:03 PM CDT LABORATORIES Routine Comment: SOURCE: URINE FUNGAL CULTURE, ROUTINE ?FINAL No growth after 24 days of incubation. Test Performed by: [address] [address] Chief Librarian Work With Blind: Mathieu Hall M.D. Ph. D.; CLIA# [id number] Source urine 11/02/2021 3:12 PM CDT [facility] Specimen Anatomical Collection Method Collection Time Receive d Time (Source) Location / / Volume Laterality Urine 11/02/2021 3:11 PM 4:05 CDT PM CDT John Willingham MD LAB MICROBIOLOGY - GENERAL O RDERABLES Performing Organization Address City/State/ZIP Code Phon e Number [facility] see result attachment for specific address documented in this encounter Visit Diagnoses Diagnosis Cystitis with hematuria - Primary Unspecified cystitis documented in this encounter Care Teams Area Director Of Home Health Sales Relationship Specialty Start Date End Date None, Pcp PCP - General Center Receptionist 11/02/21 05/25/[address] [place] [phone] documented as of this encounter
--- OUTSIDE RECORDS SUMMARY | 2022-06-30 13:48 | XMS_ITS | Encounter Summary ---
:1940 Author Organization [facility] Address [address] [place] [address] Care Team Providers Name Role Phone None, Pcp Primary Care Provider Unavailable Encounter Details Date Type Department Care Team Description 11/02/2021 Lab Yesenia Smith Urinary retention; [address] Cystitis with hematuria CLARIBEL Culp 550 09 Social History Tobacco [...] Procedure Name Priority Date/Time Associated Comments Diagnosis FUNGAL CULTURE, Routine 11/02/2021 3:11 PM Cystitis with Resul ts for this ROUTINE CDT hematuria procedure are i n the results section. GLOMERULAR FILTRATION Routine 11/02/2021 11:10 Urinary retenti on Results for this RATE AM CDT procedure are i n the results section. CBC BRANCH OFFICE Routine 11/02/2021 11:10 Urinary retention R esults for this W/DIFF AM CDT procedure are i n the results section. HEPATIC FUNCTION Routine 11/02/2021 11:10 Results for this PANEL AM CDT procedure are i n the results section. BASIC METABOLIC PANEL Routine 11/02/2021 11:10 Urinary retenti on Results for this AM CDT procedure are i n the results section. URINALYSIS-MICROSCOPI Routine 11/02/2021 10:40 Urinary retenti on Results for this C EXAM (REFLEXED) AM CDT procedure are in the results section. URINALYSIS WITH Routine 11/02/2021 10:40 Urinary retention Res ults for this REFLEX MICROSCOPIC AM CDT procedure are in the results section. URINE CULTURE Routine 11/02/2021 10:40 Results fo r this AM CDT procedure are i n the results section. documented in this encounter Results Fungal Culture, Routine (11/02/2021 3:11 PM CDT) P athologist Signature Fungal - 11/28/2021 [facility] Culture, 1:03 PM CDT LABORATORIES Routine Comment: SOURCE: URINE FUNGAL CULTURE, ROUTINE ?FINAL No growth after 24 days of incubation. Test Performed by: [place] [address] Customer Service Sales Associate: Mathieu Hall M.D. Ph. D.; CLIA# [id number] Source urine 11/02/2021 3:12 PM CDT [facility] Specimen Anatomical Collection Method Collection Time Receive d Time (Source) Location / / Volume Laterality Urine 11/02/2021 3:11 PM 4:05 CDT PM CDT John Willingham MD LAB MICROBIOLOGY - GENERAL O RDERABLES Performing Organization Address City/State/ZIP Code Phon e Number [facility] see result attachment for specific address (ABNORMAL) Liver panel (11/02/2021 11:10 AM CDT) Patholo gist Method Time Signature Total Protein 8.0 6.3 - 8.2 11/03/2021 [place] g/dL 1:32 PM [facility] Albumin, Serum 4.5 3.5 - 5.0 11/03/2021 [place] g/dL 1:32 PM [facility] Total Bilirubin 1.0 0.1 - 1.0 11/03/2021 [place] mg/dL 1:32 PM [facility] Bilirubin, <0.1 0.0 - 0.3 11/03/2021 [place] Direct mg/dL 1:32 PM [facility] AST 77 (H) 8 - 43 U/L 11/03/2021 [place] 1:32 PM [facility] Alkaline 169 (H) 38 - 128 11/03/2021 [place] Phosphatase U/L 1:32 PM [facility] ALT (SGPT) 172 (H) 0 - 34 U/L 11/03/2021 [place] 1:32 PM [facility] Specimen Anatomical Collection Method Collection Time Receive d Time (Source) Location / / Volume Laterality 11/02/2021 11:10 11/03/2021 AM CDT 12:32 PM CDT John Willingham MD LAB BLOOD ORDERABLES Performing Organization Address City/[facility]/ZIP Code Phon e Number [facility] [address] [place] [address] (ABNORMAL) Glomerular filtration rate (GFR) (11/02/2021 11:10 AM CDT) P athologist Signature GFR 53 (A) 11/02/2021 [facility] 11:39 AM CDT [facility] >60 11/02/2021 [facility] [place] GFR 11:39 AM CDT CENTER LAB[facility] Comment: GFR calculated from serum creatinine v alue Chronic Kidney Disease less than 60 mL/m in/1.73 m2 Kidney Failure less than 15 mL/min/1.73 m2 Note: effective 12/27/06 IDMS-Traceable MDRD Study Equation used. Specimen Anatomical Collection Method Collection Time Receive d Time (Source) Location / / Volume Laterality 11/02/2021 11:10 11/02/2021 AM CDT 11:10 AM CDT John Willingham MD LAB BLOOD ORDERABLES Performing Organization Address City/[facility]/ZIP Code Phon e Number [facility] [address] [place] [address] (ABNORMAL) CBC Branch Off w/Diff (11/02/2021 11:10 AM CDT) Analysis Performed At Patho logist Time Signature WBC 10.4 3.5 - 10.5 11/02/2021 [facility] K/uL 11:38 AM CDT [place] RBC 4.27 3.90 - 11/02/2021 [facility] 5.00 M/uL 11:38 AM CDT [place] Hemoglobin 12.7 12.0 - 11/02/2021 [facility] 15.5 g/dL 11:38 AM CDT [place] Hematocrit 38.8 35.0 - 11/02/2021 [facility] [place] 44.0 % 11:38 AM CDT [place] Platelets 302 150 - 450 11/02/2021 [facility] [place] K/uL 11:38 AM CDT [place] MCV 90.9 81.6 - 11/02/2021 [facility] [place] 98.3 fL 11:38 AM CDT [place] MCH 29.7 26.0 - 11/02/2021 [facility] [place] 32.0 pg 11:38 AM CDT [place] MCHC 32.7 32.0 - 11/02/2021 [facility] [place] 36.0 g/dL 11:38 AM CDT [place] RDW 12.2 11.9 - 11/02/2021 [facility] [place] 15.5 % 11:38 AM CDT [place] Lymphocytes % 14.7 % 11/02/2021 [facility] [place] 11:38 AM CDT [place] Mid-size Cells 13.4 % 11/02/2021 [facility] [place] 11:38 AM CDT [place] Granulocytes/Juancarlos 71.9 % 11/02/2021 [facility] [place] trophils 11:38 AM CDT [place] Lymphocytes 1.5 0.9 - 2.9 11/02/2021 [facility] [place] Absolute K/uL 11:38 AM CDT [place] MIDS Absolute 1.4 0.4 - 1.5 11/02/2021 [facility] [place] K/uL 11:38 AM CDT [place] Granulocytes/Juancarlos 7.5 (H) 1.7 - 7.0 11/02/2021 [facility] [place] trophils K/uL 11:38 AM CDT [place] Absolute Specimen Anatomical Collection Method Collection Time Receive d Time (Source) Location / / Volume Laterality Blood 11/02/2021 11:10 11/02/2021 AM CDT 11:15 AM CDT John Willingham MD LAB BLOOD ORDERABLES Performing Organization Address City/State/ZIP Code Phon e Number [facility] [place] [address] [place] [address] (ABNORMAL) Basic metabolic panel (11/02/2021 11:10 AM CDT) P athologist Signature Sodium 137 135 - 145 11/02/2021 [facility] [place] mmol/L 11:39 AM CDT [place] Potassium 5.0 3.5 - 5.1 11/02/2021 [facility] [place] mmol/L 11:39 AM CDT [place] Comment: . Chloride 100 98 - 107 mmol/L 11/02/2021 11:39 AM CDT [facility] [place] Comment: . CO2 27 22 - 29 mmol/L 11/02/2021 11:39 AM CDT [facility] Comment: . Creatinine 1.0 0.4 - 1.2 mg/dL 11/02/2021 11:39 AM CDT [facility] [place] Comment: . BUN 22 5 - 25 mg/dL 11/02/2021 11:39 AM CDT [facility] [place] Comment: . Glucose 235 (H) 70 - 100 mg/dL 11/02/2021 11:39 AM [facility] [place] CDT Calcium, Total,S 10.8 (H) 8.4 - 10.2 mg/dL 11/02/2021 11 :39 AM [facility] [place] CDT Comment: . Fasting? No 11/02/2021 11:15 AM CDT [facility] [place] Comment: A glass of coconut milk. Specimen Anatomical Collection Method Collection Time Receive d Time (Source) Location / / Volume Laterality Blood (Blood, 11/02/2021 11:10 11/02/2021 Venous) AM CDT 11:15 AM CDT John Willingham MD LAB BLOOD ORDERABLES Performing Organization Address City/State/ZIP Code Phon e Number [facility] [place] [facility] [address] [place] [address] (ABNORMAL) Urine culture (11/02/2021 10:40 AM CDT) [facility] Method Time Signature Urine Culture Escherichia coli ESBL 11/04/2021 [facility] >100,000 cfu/ml 9:19 AM CDT [facility] Specimen Anatomical Collection Method Collection Time Receive d Time (Source) Location / / Volume Laterality Urine (Urine, 11/02/2021 10:40 11/03/2021 1:37 Clean Catch) AM CDT PM CDT Comment: URINE Organism Antibiotic Method Susceptibility Escherichia coli ESBL Ampicillin >16 mcg/mL : Resistant Escherichia coli ESBL Ampicillin/Sulbactam 16/8 mcg/mL: Intermediate Escherichia coli ESBL Cefazolin >16 mcg/mL : Resistant Escherichia coli ESBL Cefepime >16 mcg/mL : Resistant Escherichia coli ESBL Ceftriaxone >2 mcg/mL: Resistant Comment: ESBL Escherichia coli ESBL Ciprofloxacin >2 mcg/mL: Resistant Escherichia coli ESBL Gentamicin <=4 mcg/mL : Susceptible Escherichia coli ESBL Levofloxacin >4 mcg/mL: Resistant Escherichia coli ESBL Nitrofurantoin <=32 mcg/m L: Susceptible Escherichia coli ESBL Piperacillin/Tazobactam <= 16 mcg/mL: Susceptible Escherichia coli ESBL Trimeth/Sulfa >2/38 mcg/ mL: Resistant John Willingham MD LAB MICROBIOLOGY - GENERAL O RDERABLES Performing Organization Address City/State/ZIP Code Phon e Number [facility] [address] [place] [address] (ABNORMAL) Urinalysis-Microscopic Exam (11/02/2021 10:40 AM CDT) [facility] Method Time Signature Casts, urine NONE SEEN 0-2 Hyaline 11/02/2021 [facility] /lpf 10:52 AM CDT [place] Significant NONE SEEN None Seen 11/02/2021 [facility] casts, urine /lpf 10:52 AM CDT [place] RBC, Urine 4-10 (A) 0 - 3 /hpf 11/02/2021 [facility] 10:52 AM CDT [place] WBC, Urine 21-50 (A) /hpf 11/02/2021 [facility] 10:52 AM CDT [place] Comment: Male Ref Range ? 0-3/hpf Female Ref Range ?? 0-10/hpf Squamous Epithelial, 1+ (A) Few /lpf 11/02/2021 10:52 AM [facility] [place] Urine CDT Trans Epithelial, 4-10 (A) 0 - 3 /hpf 11/02/2021 10:52 AM [facility] [place] Urine CDT Renal Tubular Cells, NONE SEEN 0 - 1 /hpf 11/02/2021 10:52 A M [facility] [place] Urine CDT Bacteria, Urine 2+ (A) None Seen /hpf 11/02/2021 10:52 AM [facility] [place] CDT Miscellaneous, urine SEE BELOW 11/02/2021 10:52 AM [facility] [place] CDT Comment: WBC Clumps Present. Specimen Anatomical Collection Method Collection Time Receive d Time (Source) Location / / Volume Laterality 11/02/2021 10:40 11/02/2021 AM CDT 10:43 AM CDT John Willingham MD LAB URINE ORDERABLES Performing Organization Address City/State/ZIP Code Phon e Number [facility] [place] [address] [place] [address] (ABNORMAL) Urinalysis with reflex microscopic (11/02/2021 10:40 AM CDT) [facility] Method Time Signature Type CLEAN CATCH 11/02/2021 [facility] 10:49 AM CDT [place] Color, Urine STRAW YELLOW 11/02/2021 [facility] 10:49 AM CDT [place] Clarity, CLOUDY (A) CLEAR 11/02/2021 [facility] [place] Urine 10:49 AM CDT [place] Glucose, NEGATIVE NEGATIVE 11/02/2021 [facility] Urine mg/dL 10:49 AM CDT [place] Bilirubin, NEGATIVE NEGATIVE 11/02/2021 [facility] [place] Urine 10:49 AM CDT [place] Ketones, NEGATIVE NEGATIVE 11/02/2021 [facility] Urine mg/dL 10:49 AM CDT [place] Specific 1.010 1.000 11/02/2021 [facility] [place], ->=1.030 10:49 AM CDT [place] Urine Blood, Urine SMALL (A) NEGATIVE 11/02/2021 [facility] 10:49 AM CDT [place] pH, Urine 6.0 5.0 - 7.0 11/02/2021 [facility] 10:49 AM CDT [place] Protein, 30 (A) NEGATIVE-TRA 11/02/2021 [facility] Urine CE mg/dL 10:49 AM CDT [place] Urobilinogen, 0.2 0.2 - 1.0 11/02/2021 [facility] [place] Urine E.U./dL 10:49 AM CDT [place] Nitrite, POSITIVE (A) NEGATIVE 11/02/2021 [facility] [place] Urine 10:49 AM CDT [place] Leukocytes, LARGE (A) NEGATIVE 11/02/2021 [facility] Urine 10:49 AM CDT [place] Specimen Anatomical Collection Method Collection Time Receive d Time (Source) Location / / Volume Laterality Urine (Urine, 11/02/2021 10:40 11/02/2021 Clean Catch) AM CDT 10:43 AM CDT John Willingham MD LAB URINE ORDERABLES Performing Organization Address City/State/ZIP Code Phon e Number [facility] [place] [address] [place] [address] documented in this encounter Visit Diagnoses Diagnosis Urinary retention Unspecified retention of urine Cystitis with hematuria Unspecified cystitis documented in this encounter Care Teams Narrow Fabrics Weaver Relationship Specialty Start Date End Date None, Pcp PCP - General [employer] History Teacher 11/02/21 05/25/22 [address] [place] [address] documented as of this encounter
== END 2022-06-30 13:44 | disposition home or self-care (01) ==
PROVIDERS: PCP Nurse Practitioner Family; Visit Provider Nurse Practitioner Family
DX: R35.0 Frequency of micturition (principal)
CPT/HCPCS: 87086; 87186

== ENCOUNTER 2022-08-25 10:38 | Outpatient (CLI) | payer MEDICARE, SELFPAY ==
[2022-08-25 11:35] LABS: Appearance Urine Cloudy (Clear); Bilirubin Urine Negative (Negative); Blood Urine Negative (Negative); Color Urine Yellow (Yellow); Glucose Urine 3+ (Negative); Ketones Urine Trace (Negative); Leukocyte Esterase Urine 1+ (Negative); Nitrite Urine Negative (Negative); Protein Urine Negative (Negative); Urobilinogen Urine 0.2 (0.2-1.0)
[2022-08-25 11:43] LABS: Hemoglobin A1C* 6.6 % (0-5.6)
[2022-08-25 15:21] LABS: Bacteria Urine Few; Squamous Epithelial Cell Urine Few (None-Few)
[2022-08-25 15:24] LABS: Chloride* 102 mmol/L (96-114); Potassium* 4.5 mmol/L (3.6-5.1); Sodium* 137 mmol/L (135-149)
[2022-08-25 15:27] LABS: Blood Urea Nitrogen* 17 mg/dL (7-30); Carbon Dioxide* 24 mmol/L (20-32); Clue Cells No Clue Cells Seen (None Seen); Creatinine* 0.6 mg/dL (0.5-1.5); Estimated Glomerular Filt Rate 88 ml/min; Glucose* 292 mg/dL (60-115); Trichomonas No Trichomonas Seen (None Seen); Yeast No Yeast Seen (None Seen)
[2022-08-25 15:28] LABS: Calcium* 9.9 mg/dL (8.4-10.6)
== END 2022-08-25 10:39 | disposition home or self-care (01) ==
PROVIDERS: PCP Nurse Practitioner Family; Visit Provider Nurse Practitioner Family
DX: R35.0 Frequency of micturition (principal); R35.1 Nocturia; E11.9 Type 2 diabetes mellitus without complications; N94.9 Unspecified condition associated with female genital organs and menstrual cycle
CPT/HCPCS: 80048; 81003; 81015; 83036; 87086; 87186; 87210

== ENCOUNTER 2022-09-22 10:55 | Outpatient (CLI) | payer MEDICARE, SELFPAY ==
[2022-09-22 13:59] LABS: Albumin* 4.5 g/dL (3.3-5.0)
[2022-09-22 14:02] LABS: Alkaline Phosphatase* 49 U/L (40-150); Aspartate Amino Transferase* 43 U/L (12-35); Bilirubin Direct* 0.2 mg/dL (0.0-0.5); Bilirubin Total* 0.6 mg/dL (0.1-1.5); Total Protein* 7.7 g/dL (6.0-8.3)
[2022-09-22 14:03] LABS: Alanine Aminotransferase* 33 U/L (4-35)
== END 2022-09-22 10:56 | disposition home or self-care (01) ==
PROVIDERS: PCP Nurse Practitioner Family; Visit Provider Nurse Practitioner Family
DX: R74.8 Abnormal levels of other serum enzymes (principal); R35.1 Nocturia; E11.9 Type 2 diabetes mellitus without complications; N95.2 Postmenopausal atrophic vaginitis; N94.9 Unspecified condition associated with female genital organs and menstrual cycle; N39.0 Urinary tract infection, site not specified
CPT/HCPCS: 80076; 87086; 87186

== ENCOUNTER 2023-01-03 19:41 | Outpatient (CLI) | payer MEDICARE, SELFPAY | END 2023-01-03 19:42 | disposition home or self-care (01) | LOC: AMB 01-09 10:44 | PROVIDERS: PCP Nurse Practitioner Family; Visit Provider Emergency Medicine | DX: I67.82 Cerebral ischemia (principal) | CPT/HCPCS: A0425; A0427; A0428 ==

== ENCOUNTER 2023-01-30 09:40 | Outpatient (CLI) | payer MEDICARE, SELFPAY | END 2023-01-30 09:41 | disposition home or self-care (01) | PROVIDERS: PCP Nurse Practitioner Family; Visit Provider Nurse Practitioner Family | DX: Z48.89 Encounter for other specified surgical aftercare (principal); R53.83 Other fatigue; R42 Dizziness and giddiness; Z51.81 Encounter for therapeutic drug level monitoring; R01.1 Cardiac murmur, unspecified; Z13.29 Encounter for screening for other suspected endocrine disorder; Z13.21 Encounter for screening for nutritional disorder; E11.9 Type 2 diabetes mellitus without complications; D64.9 Anemia, unspecified; E78.5 Hyperlipidemia, unspecified | CPT/HCPCS: 80053; 82607; 84443; 85025 ==

== ENCOUNTER 2023-02-13 09:01 | Outpatient (CLI) | payer MEDICARE, SELFPAY ==
--- OUTSIDE RECORDS SUMMARY | 2023-02-13 15:01 | XMS_ITS | Continuity of Care Document ---
Author Name Unknown Organization Unknown Allergies, Adverse Reactions, Alerts Substance Reaction Status tramadol Active sulfamethoxazole-trimethoprim Ac tive ampicillin Active Medications Start Date End Date Medication Signa 27905545 glipiZIDE 5 mg oral tablet T tamara 1 tab(s) orally 2 times a day (before meals) 01280469 Nitrofurantoin 50 mg capsule Take 1 cap(s) orally once a day 65056462 metFORMIN 500 mg oral tablet Take 2 tab(s) orally 2 times a day; With meals 44906778 atorvastatin 20 mg oral tabl et Take 1 tab(s) orally once a day 33688505 aspirin 81 mg oral tablet, c hewable Chew 1 tab(s) chewed once a day 72771935 clopidogrel 75 mg oral table t Take 1 tab(s) orally once a day 00588623 citalopram 10 mg oral tablet Take 1 tab(s) orally once a day Problems Type Code Description Effective Start Effective End Onset/Exacerbation Date Primary I69.322 Dysarthria following cerebral infarction 46700748 [id number] Other I65.22 Occlusion and stenosis of left carotid artery 21517099 [id number] Other E11.40 Type 2 diabetes mellitus with diabetic neuropathy` unsp 64187054 [id number] Other E78.2 Mixed hyperlipidemia 04308586 95831049 Other Z79.4 rn long term care (curre nt) use of insulin 16812149 [id number] Other Z79.82 nursing home (curre nt) use of aspirin 73731501 95439790 Other Z96.643 Presence of artificial hip joint` bilateral 98147657 09975281 Other Z87.440 Personal history of urinary (tract) infections 63006073 46623070 Other Z91.81 History of falling [id number] Insurance Providers Payer Name Policy type / Covera ge type Policy ID Covered Alliance Party ID Policy [employer] Medicare NGS [id number] (2017 - ) [id number] Charla Graham
== END 2023-02-13 09:02 | disposition home or self-care (01) ==
PROVIDERS: PCP Nurse Practitioner Family; Visit Provider Nurse Practitioner Family
DX: D64.9 Anemia, unspecified (principal); R53.83 Other fatigue; E78.5 Hyperlipidemia, unspecified; R74.8 Abnormal levels of other serum enzymes; E11.9 Type 2 diabetes mellitus without complications
CPT/HCPCS: 83540; 83550; 84295; 85025

== ENCOUNTER 2023-03-10 10:38 | Outpatient (CLI) | payer MEDICARE, SELFPAY | END 2023-03-10 10:39 | disposition home or self-care (01) | LOC: RAD 10:41 | PROVIDERS: PCP Nurse Practitioner Family; Visit Provider Nurse Practitioner Family | DX: R01.1 Cardiac murmur, unspecified (principal); I34.0 Nonrheumatic mitral (valve) insufficiency; I35.1 Nonrheumatic aortic (valve) insufficiency | CPT/HCPCS: 93306 ==

== ENCOUNTER 2023-04-25 11:15 | Outpatient (CLI) | payer MEDICARE, SELFPAY | END 2023-04-25 11:16 | disposition home or self-care (01) | LOC: NFLDREF 04-26 01:22 | PROVIDERS: PCP Nurse Practitioner Family; Referring Provider Nurse Practitioner Family; Visit Provider Nurse Practitioner Family | DX: R35.0 Frequency of micturition (principal); N39.0 Urinary tract infection, site not specified; E11.9 Type 2 diabetes mellitus without complications | CPT/HCPCS: 81015; 87086; 87186 ==

== ENCOUNTER 2023-09-01 11:56 | Outpatient (CLI) | payer MEDICARE, SELFPAY ==
--- OUTSIDE RECORDS SUMMARY | 2023-09-04 12:48 | XMS_ITS | Clinical Summary ---
Author Name Unknown Organization [facility] er Address [address] [place] [address] Care Team Providers Care Tension Machine Operator Name Role Phone John Willingham MD Primary Care Provider [phone] Allergies Active Allergy Reactions Criticality Noted Date Comments Ampicillin Low 11/02/2021 Has tolerated Keflex before without reaction Sulfamethoxazole-Trimethopr im Rash 11/02/2021 Tramadol Itching Medium 11/06/2012 Medications Medication Sig Dispensed Refills Start Date End Date Status Continuous Blood Gluc Sensor (FreeStyle Barbie 14 Day Sensor) miscIndications:Ty pe 2 diabetes mellitus with hyperglycemia, without long-term current use of insulin ([facility]) 1 application every 14 (fourteen) days 2 each 11 11/11/2021 Active Additional Information Patient not taking.Reported on 06/07/2022 Continuous Blood Gluc Marketing Production Coordinator (FreeStyle Barbie 14 Day [place]) deviceIndications: Type 2 diabetes mellitus with hyperglycemia, without long-term current use of insulin ([facility]) 1 each 1 (one) time each day 1 Device 0 11/11/2021 Active Additional Information Patient not taking.Reported on 06/07/2022 metFORMIN (GLUCOPHAGE) 500 MG tabletIndications: Type 2 diabetes mellitus without complication, without long-term current use of insulin ([facility]) 2 tablets in AM and 1 tablet in PM with meals 270 tablet 1 07/25/2022 Active glipiZIDE (GLUCOTROL) 5 MG tabletIndications: Type 2 diabetes mellitus without complication, without long-term current use of insulin (HCC) TAKE ONE TABLET BY MOUTH TWICE A DAY BEFORE MEALS 180 tablet 0 01/03/2023 Active aspirin 81 MG EC tablet Take 1 tablet (81 mg total) by mouth daily 0 01/06/2023 Active atorvastatin (LIPITOR) 20 MG tablet Take 1 tablet (20 mg total) by mouth 1 (one) time each day with dinner 0 01/05/2023 Active citalopram (CeleXA) 10 MG tablet Take 1 tablet (10 mg total) by mouth daily 0 01/05/2023 Active clopidogrel (PLAVIX) 75 MG tablet Take 1 tablet (75 mg total) by mouth daily 0 01/05/2023 Active nitrofurantoin (MACRODANTIN) 50 MG capsule Take 1 capsule (50 mg total) by mouth daily 0 Active Active Problems Problem Noted Date Diagnosed Date Type 2 diabetes mellitus 11/08/2021 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 10th grade 11/05/2021 Sex and Gender Information Value Date Recorded Sex Assigned at Not on file Gender Identity Not on file Sexual Orientation Not on file Last Filed Vital Signs Vital Sign Reading Time Taken Comments Blood Pressure 118/60 06/07/2022 10:58 AM CDT Pulse 97 06/07/2022 10:58 AM CDT Temperature 37.1 ??C (98.8 ??F) 06/07/2022 10:58 AM C DT Respiratory Rate 16 06/07/2022 10:58 AM CDT Oxygen Saturation 97% 06/07/2022 10:58 AM CDT Inhaled Oxygen Concentration - - Weight 57.6 kg (127 lb) 06/07/2022 10:58 AM CDT Height 156.6 cm (5' 1.65) 11/05/2021 10:48 AM C DT Body Mass Index 23.49 11/05/2021 10:48 AM CDT Plan of Treatment Health Maintenance Due Date Last Done Comments Bone Density Scan 1940 Mammogram 1940 COVID-19 Vaccine (#1) 01/15/1941 Pneumococcal Vaccine: 65+ Years (1 of 2 - PCV) 1944 DTaP,Tdap,and Td Vaccines (1 - Tdap) 1957 Zoster Vaccines (1 of 2) 1988 Diabetes: Urine Protein Screening 06/01/2022 06/01/2021 Diabetes: Retinopathy Screening 07/06/2022 07/06/2020, 04/18/2019, 12/21/2018, Additional history exists Fall Risk Performed 11/05/2022 11/05/2021 Medicare Annual Wellness Visit (AWV) 11/05/2022 11/05/2021 Diabetic: Foot Exam 02/01/2023 02/01/2022 Influenza Vaccine (#1) 2023 Diabetes: Hemoglobin A1C 07/06/2023 023, 02/09/2022, 10/08/2021, Additional history exists Lipid Panel 01/05/2024 01/04/2023, 05/14, 05/04/2020 HPV Vaccines Aged Out No longer eligi ble based on patient's age to complete this topic Care Teams Tension Machine Operator Relationship Specialty Start Date End Date John Willingham MD [address] [place] [address] PCP - General 05/26/22
--- OUTSIDE RECORDS SUMMARY | 2023-09-04 12:49 | XMS_ITS | Encounter Summary ---
Author Name Unknown Organization [facility] er Address [address] [place] [address] Care Team Providers Care Mechanical Repair Worker Name Role Phone John Willingham MD Primary Care Provider [phone] Reason for Visit * Reason Onset Date Comments Other 01/12/2023 Encounter Details Date Type Department Care Team (Late st Contact Info) Description 01/12/2023 Telephone [place] [address] [place] [id number] John Willingham MD [address] [place] [address] Other Social History Tobacco Use Types Packs/Day Years [...] on file Sexual Orientation Not on file documented as of this encounter Miscellaneous Notes * Telephone Encounter - Mayra Chapman LPN - 01/12/2023 2:44 PM CDT noted * Telephone Encounter - Kerrie Mccarthy - 01/12/2023 2:36 PM CDT Faxed letter/admit order for Home Health to [place], [place]; fax #[phone].Office #[phone]. * Telephone Encounter - Dyan Romero RN - 01/12/2023 2:28 PM CDT Please fax order to home health. * Telephone Encounter - Dyan Romero RN - 01/12/2023 9:05 AM CDT [facility] is needed a printed order for admit to home healthcare. Once completed we can fax this to them. * Telephone Encounter - Freida Keller - 01/12/2023 8:54 AM CDT interim home health care called they received all the information to treat Charla but they are needing an order to Admit Charla. documented in this encounter Plan of Treatment Not on file documented as of this encounter Visit Diagnoses Not on filedocumented in this encounter Care Teams Mechanical Repair Worker Relationship Specialty Start Date End Date John Willingham MD [address] [facility] [address] [place] [address] PCP - General 05/26/22 documented as of this encounter
--- OUTSIDE RECORDS SUMMARY | 2023-09-04 12:49 | XMS_ITS | Encounter Summary ---
Author Name Unknown Organization [facility] er Address [address] [place] [address] Care Team Providers Care Outplacement Consultant Name Role Phone John Willingham MD Primary Care Provider [phone] Encounter Details Date Type Department Care Team (Late st Contact Info) Description 04/05/2023 Telephone [place] [address] [facility] [address] [place] [address] John Willingham MD [address] [facility] 20 [place] [address] Social History Tobacco Use Types Packs/Day Years [...] encounter Miscellaneous Notes * Telephone Encounter - Dyan Romero RN - 04/27/2023 1:37 PM CDT Noted. * Telephone Encounter - Radha Sanchez - 04/27/2023 1:21 PM CDT LMTCB to schedule lab work and AWV with Dr. Willingham. We have attempted to contact patient 3 times now with no response. Will send letter. * Telephone Encounter - Radha Sanchez - 04/18/2023 9:07 AM CDT LMTCB to schedule AWV and labs with Dr. Willingham. * Telephone Encounter - Radha Sanchez - 04/05/2023 1:30 PM CDT LMTCB to schedule lab work and AWV with Dr. Willingham. * Telephone Encounter - Ariane Craven RN - 04/05/2023 10:19 AM CDT Please contact patient to set up appointment for AWV / DM F/U. Patient will likely need labs done prior to appointment, please check with provider after scheduling appointments to order appropriate labs. documented in this encounter Plan of Treatment Not on file documented as of this encounter Visit Diagnoses Not on filedocumented in this encounter Care Teams Outplacement Consultant Relationship Specialty Start Date End Date John Willingham MD [address] [place] [address] PCP - General 05/26/22 documented as of this encounter
--- OUTSIDE RECORDS SUMMARY | 2023-09-04 12:49 | XMS_ITS | Encounter Summary ---
Author Name Unknown Organization [facility] er Address [address] [place] [address] Care Team Providers Care Auto Polisher Name Role Phone John Willingham MD Primary Care Provider Reason for Visit * Reason Comments Med Refill Encounter Details Date Type Department Care Team (Late st Contact Info) Description 01/03/2023 Refill [place] [address] [facility] [address] [place] [address] John Willingham MD [address] [facility] 20 [place] [address] Type 2 diabetes mellitus without complication, without long-term current use of insulin (HCC) Social History Tobacco Use Types Packs/Day Years [...] encounter Miscellaneous Notes * Telephone Encounter - Radha Sanchez - 01/25/2023 2:00 PM CDT Patient is admitted at [facility]. * Telephone Encounter - Kerrie Mccarthy - 01/03/2023 3:33 PM CDT LMTCB to schedule 6-month re-check, med review, appt. * Telephone Encounter - Sarah Cabral LPN - 01/03/2023 3:26 PM CDT Patient is due for 6 month recheck appointment. PSR: Please contact patient to assist with scheduling. Upcoming appointment with provider: none Last visit in provider department: 06/07/2022 Last visit requested medication was discussed: 11/05/2021 Last Rx: glipiZIDE (GLUCOTROL) 5 MG 07/25/2022 # 180, 1 refill Requested Prescriptions Pending Prescriptions Disp Refills glipiZIDE (GLUCOTROL) 5 MG tablet [Pharmacy Med Name: GLIPIZIDE 5MG TABS] 180 tablet 1 Sig: TAKE ONE TABLET BY MOUTH TWICE A DAY BEFORE MEALS Labs: Component Latest Ref Rng 02/09/2022 Hemoglobin A1C 4.0 - 5.6 % A1C 6.2 (H) Vitals: BP Readings from Last 2 Encounters: 06/07/22 118/60 05/13/22 100/60 documented in this encounter Plan of Treatment Not on file documented as of this encounter Visit Diagnoses Diagnosis Type 2 diabetes mellitus without complication, without long-term current use of insulin (HCC) documented in this encounter Care Teams Auto Polisher Relationship Specialty Start Date End Date John Willingham MD [address] [place] [address] PCP - General 05/26/22 documented as of this encounter
--- OUTSIDE RECORDS SUMMARY | 2023-09-04 12:49 | XMS_ITS | Encounter Summary ---
Author Name Unknown Organization [facility] er Address [address] [place] [address] Care Team Providers Care Gear Generator Set Up Operator Name Role Phone John Willingham MD Primary Care Provider [phone] Reason for Visit * Reason Onset Date Comments TCM Follow-up 01/06/2023 Encounter Details Date Type Department Care Team (Late st Contact Info) Description 01/06/2023 Telephone [facility] [address] [place] [address] John Willingham MD [address] [place] [address] TCM Follow-up Social History Tobacco Use Types Packs/Day Years [...] Miscellaneous Notes * Telephone Encounter - Mayra Plascencia RN - 01/16/2023 2:46 PM CDT Spoke to Charla. She will call and schedule follow up after her surgery. * Telephone Encounter - John Willingham MD - 01/16/2023 2:19 PM CDT Noted sounds good * Telephone Encounter - Mayra Plascencia RN - 01/16/2023 1:40 PM CDT Call attempt 3- LMTCB. Reached out to daughter to make sure she's doing ok. She is and is in frequent contact with family.She has surgery on 01/19 at [facility]. We will try to connect after that time. 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 Time: 3:40 PM Visit Type: TRANSITIONAL CARE MANAGEMENT Department: [place] [phone] Provider: John Willingham MD Department Address: [address] [place] [id number] Arrival Location: [facility] Complexity Level: High Does the patient have a scheduled appt based on complexity level within 7 days or 14 days?: 7 days Any referrals or testing to be ordered after D/C?: Yes What was ordered?: see notes Follow-Up Call: Date of Call: 01/06/23 Time of Call: [phone] Number of Call Attempts: 1 (LMTCB) Specific recommendations to be addressed at the follow up visit: Blood pressure, toleration of new medication regimen Your Home Medicines START taking these medicines Instructions aspirin 81 mg enteric coated tablet For diagnoses: Cerebrovascular accident (CVA), unspecified mechanism (HC) Start taking on: January 06, 2023 Commonly known as: ECOTRIN Take 1 Tablet (81 mg) by mouth once daily with a meal. atorvastatin 20 mg tablet For diagnoses: Carotid stenosis, left Commonly known as: LIPITOR Take 1 Tablet (20 mg) by mouth once daily with evening meal. citalopram 10 mg tablet For diagnoses: Cerebrovascular accident (CVA), unspecified mechanism (HC) Commonly known as: CELEXA Take 1 Tablet (10 mg) by mouth once daily. clopidogreL 75 mg tablet For diagnoses: Right facial weakness due to recent stroke Commonly known as: PLAVIX Take 1 Tablet (75 mg) by mouth once daily. Walker For diagnoses: Cerebrovascular accident (CVA), unspecified mechanism (HC) Walker with front wheels for indefinite home use. documented in this encounter Plan of Treatment Not on file documented as of this encounter Visit Diagnoses Not on filedocumented in this encounter Care Teams Gear Generator Set Up Operator Relationship Specialty Start Date End Date John Willingham MD [address] [place] [address] PCP - General 05/26/22 documented as of this encounter
--- OUTSIDE RECORDS SUMMARY | 2023-09-04 12:49 | XMS_ITS | Encounter Summary ---
Author Name Unknown Organization [facility] er Address [address] [place] [address] Care Team Providers Care Med Surg Nurse Name Role Phone John Willingham MD Primary Care Provider [phone] Encounter Details Date Type Department Care Team (Late st Contact Info) Description 02/16/2023 Telephone [place] [facility] [facility] [place] [address] John Willingham MD [address]05 [facility] 20 [place] [address] Social History Tobacco Use Types Packs/Day Years [...] * Telephone Encounter - Radha Sanchez - 02/16/2023 10:46 AM CDT FYI - Faxed signed PT orders to [facility]. [phone] documented in this encounter Plan of Treatment Not on file documented as of this encounter Visit Diagnoses Not on filedocumented in this encounter Care Teams Med Surg Nurse Relationship Specialty Start Date End Date John Willingham MD [address] [place] [address] PCP - General 05/26/22 documented as of this encounter
--- OUTSIDE RECORDS SUMMARY | 2023-09-04 12:49 | XMS_ITS | Clinical Summary ---
Author Name Unknown Organization [facility] Address [place], [place] [address] Care Team Providers Care Geoscience Specialist Name Role Phone Mayra Hong STRAIGHT KNIFE CUTTER MACHINE Unavailable [phone] Tarsha CRAWFORD MD, John Conteh Primary Care Provi linda Allergies Active Allergy Reactions Criticality Noted Date Comments Ampicillin *Unknown,Itching 10/28/2014 Tramadol Itching 11/06/2012 Medications Medication Sig Dispensed Refills Start Date End Date Status cholecalciferol (VITAMIN D) 1,000 unit capsule Take 3,000 Units by mouth once daily. 0 11/10/2014 Active blood sugar diagnostic (Contour Next Test Strips) stripIndications:Typ e 2 diabetes mellitus without complication (HC) Dispense item covered by pt ins.TEST 3 TIMES DAILY. 300 Strip 3 02/24/2021 Active flash glucose scanning reader (FreeStyle Barbie 14 Day [place]) miscIndications:Type 2 diabetes mellitus without complication, without long-term current use of insulin (HC) As directed. 2 Each 11 06/01/2021 Active glipiZIDE (GLUCOTROL) 5 mg tabletIndications:Ty pe 2 diabetes mellitus without complication, without long-term current use of insulin (HC) Take 1 Tablet (5 mg) by mouth 2 times daily before meals. 180 Tablet 2 10/08/2021 Active nitrofurantoin macrocrystaL (MACRODANTIN) 50 mg capsule Take 50 mg by mouth once daily. 0 Active WalkerIndications:Ce rebrovascular accident (CVA), unspecified mechanism (HC) Walker with front wheels for indefinite home use. 1 Each 0 01/05/2023 Active citalopram (CELEXA) 10 mg tabletIndications:Ce rebrovascular accident (CVA), unspecified mechanism (HC) Take 1 Tablet (10 mg) by mouth once daily. 60 Tablet 0 01/05/2023 Active aspirin (ECOTRIN) 81 mg enteric coated tabletIndications:Ce rebrovascular accident (CVA), unspecified mechanism (HC) Take 1 Tablet (81 mg) by mouth once daily with a meal. 60 Tablet 0 01/06/2023 Active atorvastatin (LIPITOR) 20 mg tabletIndications:Ca rotid stenosis, left Take 1 Tablet (20 mg) by mouth once daily with evening meal. 30 Tablet 0 01/05/2023 Active clopidogreL (PLAVIX) 75 mg tabletIndications:Fa cial weakness due to recent stroke Take 1 Tablet (75 mg) by mouth once daily. 30 Tablet 0 01/05/2023 Active zinc sulfate (Zinc-220) 50 mg zinc (220 mg) capsule Take 220 mg by mouth once daily. 0 Active Garlic 100 mg tab Take 1 Tablet by mouth at bedtime. 0 Active TURMERIC ORAL Take 1 Tablet by mouth at bedtime. 0 Active metFORMIN (GLUCOPHAGE) 500 mg tablet Take 500 mg by mouth two times daily with meals. 0 Active sennosides-docusate (SENOKOT S) (8.6-50 mg) tabletIndications:Co nstipation, unspecified constipation type Take 1 to 4 tablets by mouth two times daily. 10 Tablet 0 01/20/2023 Active acetaminophen (TYLENOL) 325 mg tabletIndications:S/ P carotid endarterectomy Take 2 Tablets (650 mg) by mouth every 6 hours. Max acetaminophen dose: 4000mg in 24 hrs. 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 01/04/2023 CVA (cerebral vascular accident) 01/03/2023 Recurrent UTI 01/03/2023 S/P bilateral hip replacements 01/03/2023 Mixed hyperlipidemia 03/17/2016 Type 2 diabetes mellitus without complication S/P hip replacement 03/17/2014 Neuropathy 11/06/2012 Carotid stenosis, left Resolved Problems Problem Noted Date Diagnosed Date Resolved Date Effusion of left hip 04/08/2015 016 Anticoagulation monitoring, special range( 1.8 to 2.5) 03/17/2014 03/22/2016 Severe bilateral hip osteoarthritis 12/27/2012 03/22/2016 Mixed hyperlipidemia 06/06/2012 016 Diabetes mellitus 05/01/2012 10/09/2015 Right hip pain 05/01/2012 05/01/2012 Pain in joint, lower leg 05/01/2012 Arthritis 05/01/2012 12/27/2012 Encounters Date Type Department Care Team Description 07/04/2023 Telephone [facility] [address] [place] [address] Yaya Lewis MD Appointment; Imaging from Last 3 Months Family History Medical History Relation Name Comments Diabetes Brother 1 Hypertension Brother 2 Hyperthyroidism Daughter Thyroid cancer Daughter Hypertension Father Diabetes Mother Hypertension Mother Stroke Sister Relation Name Status Comments Brother 1 Brother 2 Daughter Father (Age 72) DC Mother (Age 69) Sister (Age 40) aneurysm Social History Tobacco Use Types Packs/Day Years Used Date Smoking Tobacco: Never Smokeless Tobacco: Never Tobacco Cessation:Counseling Given: Yes Alcohol Use Standard Drinks/Week Comments Yes 0 (1 standard drink = 0.6 oz pur e alcohol) occasion PHQ-2 Answer Date Recorded PHQ-2 TOTAL SCORE 0 10/08/2021 Social Connections Answer Date Recorded Frequency of Communication with Friends and Fami ly Not on file 08/14/2021 Financial Resource Strain Answer Date R ecorded Difficulty of Paying Living Expenses Not on file 08/14/2021 Difficulty of Paying Living Expenses Not on file 08/14/2021 Sex and Gender Information Value Date Recorded Sex Assigned at Not on file Gender Identity Not on file Sexual Orientation Not on file Obstetrics History Para Term AB IAB SAB Ectopic Multiple Livin g Live Births 5 5 Date Outcome GA Total Labor Labor/2nd/3rd Weight Sex Delivery Anes PTL Etta A1 A5 Name Cl in Last Filed Vital Signs Vital Sign Reading Time Taken Comments Blood Pressure 115/50 01/20/2023 11:41 AM CDT Pulse 73 01/20/2023 11:41 AM CDT Temperature 36.8 ??C (98.3 ??F) 01/20/2023 7:55 AM CD T Respiratory Rate 18 01/20/2023 11:41 AM CDT Oxygen Saturation 95% 01/20/2023 11:41 AM CDT Inhaled Oxygen Concentration - - Weight 54.4 kg (120 lb) 01/20/2023 6:02 AM CDT Height 152.4 cm (5') 01/19/2023 11:36 AM CDT Body Mass Index 23.44 01/19/2023 11:36 AM CDT Plan of Treatment Health Maintenance Due Date Last Done Comments COVID-19 vaccine series (#1) 01/15/1941 Pneumococcal series for age 65+ (1 of 2 - PCV) 1944 Tdap 1949 Tetanus booster 1958 Zoster (shingles) series for age 50+ (1 of 2) 1988 DEXA/DXA scan for age 65+ 2003 Medicare Wellness for age 65+ 2003 BMI (ht and wt on same day) for age 18+ 05/04/2021 05/04/2020, 12/31/2018, 05/14/2018, Additional history exists Depression screening for age 12+ 10/11/2022 10/11/2021, 10/08/2021, 05/29/2018, Additional history exists Influenza for age 65+ 04/14/2023 Medical Devices Implanted Type Area Lmft Device Identifier Shelf Expiration Date Model / Serial / Lot Tissue Pericardium 0.8x8cm Xenosure - [id number] Implanted:Qty: 1 on 01/19/2023 by Yaya Lewis MD at [facility] Left: Carotid Artery [employer] 10/11/2028 0.8P8 / / [id number] Advance Directives Latest Code Status on File Code Status Date Activated Date Inactivated Comments Full Code 01/19/2023 11:24 AM 01/20/2023 4:12 PM Question Answer Comments Code Status Discussion: Unable to Assess Preferences, Provider to review later Code Status History Code Status Date Activated Date Inactivated Comments Full Code 01/03/2023 9:22 PM 01/05/2023 9:11 PM Question Answer Comments Code Status Discussion: Reviewed Preferences Care Teams Geoscience Specialist Relationship Specialty Start Date End Date John Willingham II, MD [address] [place] [address] PCP - General Family Practice 05/03/22 Mayra Hong NP Nurse Practitioner Nurse Practitioner 11/07/14
== END 2023-09-01 11:57 | disposition home or self-care (01) ==
LOC: NFLDREF 09-04 12:47
PROVIDERS: PCP Nurse Practitioner Family; Referring Provider Nurse Practitioner Family; Visit Provider Nurse Practitioner Family
DX: N39.0 Urinary tract infection, site not specified (principal); B95.2 Enterococcus as the cause of diseases classified elsewhere
CPT/HCPCS: 81015; 87086; 87186

== ENCOUNTER 2023-10-09 17:58 | Emergency (ER) | payer MEDICARE, SELFPAY ==
[2023-10-09] VITALS (7 sets, daily range): BP systolic 124–146; BP diastolic 60–89; PULSE 92–101; RESP 16–18; TEMP 38.1; O2SAT 93–95; BMI 25.6
--- NOTE | 2023-10-09 18:06 | ED.GENADULT ---
HPI - General Adult General Chief complaint: Unspecified Complaint, Adult Stated complaint: Altered mental status Time Seen by Provider: 10/09/23 18:06 History of Present Illness HPI narrative: EMS reports pt feels off today. Pt c/o low back pain en route to hospital. EMS concerned for pinpoint pupils and flutter?type heart rhythm. A&O x4 . Pt diabetic and EMS blood sugar 275. Temp 100.6 83-year-old woman presenting to the emergency department via EMS and then accompanied by daughter and other family members. Is reported not to have been herself today. I called in to check on her and noticed her to be slurring her words and doing bizarre things. No focal weaknesses were described. Does have a history of CVA and had been complaining of some headache. CVA in the past was represented by, as gestured, right facial droop and slurring of words. Symptoms seems to have spontaneously resolved after some hours arriving here 6 or 7 hours after onset. Symptoms seemed to have lasted 5 hours as described. They do note that she is suspected to have a urinary tract infection. Review of records would indicate that has had some difficulty to clear or persistent urinary tract infections. Furthermore Ms. Graham is very non adherent to medical recommendations. Starting and stopping medications as she chooses. It is really unclear what she actually completes. Does sound as though she drinks low minimal water in a day. Had been complaining of feeling unwell generally last night. There may have been some dysuria. No measured fever though we do measure her for fever here on arrival to the emergency department. No chills described. No cough or cold symptoms. Reviewing more regarding history of urinary tract infection it appears that she is supposed to be taking daily nitrofurantoin prophylaxis. She discontinued this after the last urinary tract infection. Underlying history of diabetes as well. She does report taking daily aspirin and clopidogrel. This is on med list that I verify. Related Data Home Medications Medication Instructions Recorded Confirmed glipizide 5 mg tablet 5 mg PO BID 06/30/22 10/09/23 metformin 500 mg tablet 500 mg PO BID 06/30/22 10/09/23 cholecalciferol (vitamin D3) 25 1,000 unit PO DAILY 01/30/23 10/09/23 mcg (1,000 unit) capsule Previous Rx's Medication Instructions Recorded blood-glucose sensor (FreeStyle #1 ea 08/25/22 Barbie 3 Sensor device) flash glucose scanning reader #1 ea 08/25/22 (FreeStyle Barbie 14 Day [place]) atorvastatin 20 mg tablet (Lipitor) 20 mg PO QHS 90 days #90 tabs 01/28/23 clopidogrel 75 mg tablet (Plavix) 75 mg PO QDAY 90 days #90 tabs 01/28/23 aspirin 81 mg tablet,delayed 81 mg PO QDAY 90 days #90 tabs 03/16/23 release (Adult Aspirin Regimen) flash glucose sensor (FreeStyle #2 ea 04/25/23 Barbie 2 Sensor kit) glipizide 5 mg tablet 2.5 mg (1/2 x 5 mg) PO BID #90 tabs 04/25/23 triamcinolone acetonide 0.5 % 1 applic topical BID #30 grams 09/01/23 topical cream nitrofurantoin macrocrystal 50 mg 50 mg PO Q24H 90 days #90 caps 09/08/23 capsule Allergies Allergy/AdvReac Type Severity Reaction Status Date / Time ampicillin Allergy Intermediate Nausea Verified 10/09/23 18:05 tramadol Allergy Mild itching Verified 10/09/23 18:05 PFSH PFSH Surgical History (Updated 02/21/23 @ 07:14 by Audra Doss APRN, BILLING SPECIALIST) History of left-sided carotid endarterectomy ?Z98.890 - Other specified postprocedural states (ICD-10) History of kidney removal ?Z90.5 - Acquired absence of kidney (ICD-10) History of hip replacement ?Z96.649 - Presence of unspecified artificial hip joint (ICD-10) Family History (Updated 02/21/23 @ 07:16 by Audra Doss APRN, BILLING SPECIALIST) Father Coronary artery disease High blood pressure Sister Brain aneurysm Mother Diabetes High blood pressure Brother Diabetes High blood pressure Daughter Thyroid disease Daughter Thyroid cancer Social History Narrative: . 3 children. No formal exercise. Non-smoker. Alcohol rare. No illicit drug use. Smoking Status: Never smoker Do you use any of these nicotine containing products: None Second hand tobacco smoke exposure: No How often do you have a drink containing alcohol: never AUDIT-C Alcohol total score: 0 Non-prescribed substance use: denies use service: No Exam Narrative: Exam Narrative: Very energetic. Heavy lipstick. Partially edentulate. Full wig is askew. Hard of hearing. Verbal bantering. Breathing easily. Moving all extremities without difficulty with full strength. Denying sensory deficits. Head appears to be atraumatic. Cranial nerves 2-12 look to be intact. Breathing easily lungs appear to be clear. Heart in elevated rate and regular rhythm. Abdomen is soft and nontender on repeat exam though seems to have some discomfort in low/suprapubic area. No masses appreciated. Extremities are without edema. Const: Vital Signs, click to edit/add: Vital Signs - 24 hr 10/09/23 18:00 10/09/23 18:38 10/09/23 21:00 Temperature 100.6 F H Pulse Rate 92 Pulse Rate [Pulse Oximeter] 98 Respiratory Rate 18 16 Respiratory Rate [ back] 18 Blood Pressure 133/89 Blood Pressure [Le ft Upper Arm] 146/68 H Pulse Oximetry 94 95 Oxygen Delivery Me thod Room Air 10/09/23 21:50 10/09/23 22:00 10/09/23 22:02 Temperature Pulse Rate 101 H 99 99 Pulse Rate [Pulse Oximeter] Respiratory Rate Respiratory Rate [ back] Blood Pressure 124/60 Blood Pressure [Le ft Upper Arm] Pulse Oximetry 93 93 93 Oxygen Delivery Me thod Room Air 10/09/23 22:03 Temperature Pulse Rate 99 Pulse Rate [Pulse Oximeter] Respiratory Rate Respiratory Rate [ back] Blood Pressure Blood Pressure [Le ft Upper Arm] Pulse Oximetry 95 Oxygen Delivery Me thod Room Air Documenting provider has reviewed patient's vital signs: yes Course Vital Signs Vital signs: Initial Vital Signs Temperature 100.6 F H 10/09/23 18:00 Temperature Source Temporal Artery Scan 10/09/23 18:00 Pulse Rate 98 10/09/23 18:00 Respiratory Rate 18 10/09/23 18:00 Blood Pressure 146/68 H 10/09/23 18:00 Blood Pressure Mean 94 10/09/23 18:00 Blood Pressure Position Supine 10/09/23 18:00 Pulse Oximetry 94 10/09/23 18:00 Oxygen Delivery Method Room Air 10/09/23 18:00 Vital Signs Temperature 100.6 F H 10/09/23 18:00 Pulse Rate 98 10/09/23 18:00 Respiratory Rate 18 10/09/23 18:00 Blood Pressure 146/68 H 10/09/23 18:00 Pulse Oximetry 94 10/09/23 18:00 Oxygen Delivery Method Room Air 10/09/23 18:00 Temperature 100.6 F H 10/09/23 18:00 Pulse Rate 99 10/09/23 22:03 Respiratory Rate 16 10/09/23 21:00 Blood Pressure 124/60 10/09/23 22:02 Pulse Oximetry 95 10/09/23 22:03 Oxygen Delivery Method Room Air 10/09/23 22:03 Medications Administered Medications: Discontinued Medications Generic Name Dose Route Start Last Admin Trade Name Freq PRN Reason Stop Dose Admin Sodium Chloride 1,000 mls @ 1,000 mls/hr 10/09/23 18:35 10/09/23 22:21 0.9 % Sodium Chloride 1000 Ml IV 10/09/23 19:34 Infused .Q1H ONE Infusion Ceftriaxone Sodium 1 gm/ 100 mls @ 200 mls/hr 10/09/23 21:07 10/09/23 21:50 Sodium Chloride IVPB 10/09/23 21:08 Infused ONCE ONE Infusion Medical Decision Making MDM Narrative Medical decision making narrative: In busy emergency department after initial assessment left to place orders and returnedto examine/evaluate on a few more occasions. Description of events certainly could have been a TIA or activation of old symptoms under illness stress. She is treated with both aspirin and Plavix; presumably taking it Reviewing records there has been a perpetual urinary tract infection. Unclear if this is new or just never really resolved due to non adherence to medical recommendations. Electrolyte abnormalities could also contribute however symptoms appears to have resolved. Would initiate IV/IV fluids. Head CT noncontrast. Standard labs. Screen for COVID influenza and urinalysis. Labs did show elevated white count of nearly 17,000. She did arrive with a fever 100.6. Glucose elevated also suggests poor control or infectious etiology here. Urinalysis clearly looks to be positive. Head CT reviewed by me look to be absent of any acute abnormality. Continue to demonstrate good energy during time in the emergency department. Blood pressure/vitals good other than mildly elevated to the low tachycardic heart rate. I think does meet SIRS criteria I did review available urine cultures. Organisms alternately sensitive to cephalosporin or ciprofloxacin. Most recently ciprofloxacin would appear to be ideal coverage. There is some question about whether not became excessively fatigued with ciprofloxacin when prescribed prior. This is my recommendation to initiate treatment. I did give Rocephin here in the IV though. Will continue with slightly extended course of ciprofloxacin. Would check urine at the end of this course as well. I suspect that this infection is likely the reason for the altered mental status earlier today. Discussed with Neurology on-call. She is already doubly covered with aspirin and Plavix. Has no symptoms of TIA/CVA at this time. See patient discharge plan Lab Data Lab results reviewed: Yes I reviewed the patient's lab results Labs: Lab Results 10/09/23 10/09/23 10/09/23 Range/Units 18:25 19:15 20:20 WBC 16.86 H (4.50-11.00) K/uL RBC 4.12 (4.00-5.20) m/uL Hgb 12.2 (12.0-16.0) gm/dL Hct 37.7 (33.0-51.0) % MCV 92 (80-100) fL MCH 30 (26-34) pg MCHC 32 (32-36) gm/dL RDW Coeff of Lisbet 12.8 (11.5-15.5) % Plt Count 277 (140-440) K/uL Neut % (Auto) 86.2 H (42.0-72.0) % Lymph % (Auto) 5.8 L (20-44) % Curry % (Auto) 7.5 (0.0-11.0) % Eos % (Auto) 0.1 (0.0-7.0) % Baso % (Auto) 0.2 (0.0-3.0) % Neut # (Auto) 14.50 H (1.7-7.0) K/uL Lymph # (Auto) 1.00 (0.90-2.90) K/uL Curry # (Auto) 1.30 H (0.00-0.90) K/UL Eos # (Auto) 0.00 (0.00-0.50) K/uL Baso # (Auto) 0.00 (0.00-0.30) K/uL Abs Immat Gran (auto) 0.00 (0.00-0.30) K/uL Imm/Tot Granulo (auto) 0.2 % Sodium 135 (135-149) mmol/L Potassium 3.9 (3.6-5.1) mmol/L Chloride 97 (96-114) mmol/L Carbon Dioxide 22 (20-32) mmol/L Anion Gap 16 H (7-15) mEq/L BUN 19 (7-30) mg/dL Creatinine 0.6 (0.5-1.5) mg/dL Estimated Creat Clear 32.53 Estimated GFR 88 ml/min Glucose 281 H (60-115) mg/dL Calcium 9.8 (8.4-10.6) mg/dL Urine Color Red A (Yellow) Urine Appearance Cloudy A (Clear) Urine pH 5.0 (5.0-8.5) Ur Specific [place] 1.010 (1.000-1.030) Urine Protein 3+ A (Negative) Urine Glucose (UA) 2+ A (Negative) Urine Ketones 2+ A (Negative) Urine Blood Trace-intact A (Negative) Urine Nitrite Positive A (Negative) Urine Bilirubin 2+ A (Negative) Urine Urobilinogen 4.0 A (0.2-1.0) Ur Leukocyte Esterase 3+ A (Negative) Urine RBC 10-25 A (0-2) Urine WBC >100 A (0-5) Ur Squamous Epith Cells None (None-Few) Urine Bacteria Many A (None) SARS-CoV-2 (PCR) Negative SARS-CoV-2 (Negative) Influenza Type A (PCR) Negative PCR FLU A (Negative) Influenza Type B (PCR) Negative PCR FLU B (Negative) RSV (PCR) Negative PCR RSV (Negative) Critical Care Time Critical Care Time Critical Care Time: Yes Attestation: The patient required my highest level preparedness to intervene emergently and I personally spent this critical care time directly and personally managing the patient. This critical care time included: Obtaining a history; Examining the patient; Pulse oximetry; Ordering and reviewing of studies; Arranging urgent treatment with development of a management plan; Evaluation of patients response to treatment; Frequent reassessment discussions with other providers. This critical care time was performed to assess and manage the high probability of imminent life-threatening deterioration that could result in multiorgan failure. It was exclusive of separate billable procedures and treating other patients and teaching time. Total Critical Care Time in Minutes: 30 Discharge Plan Discharge Clinical Impression: UTI (urinary tract infection), Non-adherence to medical treatment, Altered mental status, SIRS (systemic inflammatory response syndrome) Patient Disposition: Home w/ Parent or Adult Condition: Improved Additional Instructions: It is important that you stay well-hydrated. You really should set out multiple L sized bottles that you fill with water and make sure they are done by the end of the day. Probably should drink between 2-3 L of water a day. I am prescribing ciprofloxacin at an appropriate dose. A urine culture will be pending to further guide antibiotics if we need to change them. Once you have completed this course of ciprofloxacin you should return to taking your daily Macrobid (also known as nitrofurantoin) It is hard for me to know whether not these recurrent urinary tract infections are related to you not following medical directions or if there is something else going on that is contributing to these infections. I would like you to touch base with your primary care provider to consider a follow-up with Urology for further testing/evaluation. Return for persistent and increasing weakness, worsening and persistent goofiness (also known as altered mental status) worsening fever. Do also keep taking your daily aspirin and Plavix. Ciprofloxacin from [facility]. Take the ciprofloxacin 1/2 tablet twice daily for 8 days. Once you complete this course of antibiotics, I would like you to be seen in clinic to recheck your urine for any further evidence of infection. Prescriptions: No Action glipizide 5 mg tablet 5 mg PO BID metformin 500 mg tablet 500 mg PO BID cholecalciferol (vitamin D3) 25 mcg (1,000 unit) capsule 1,000 unit PO DAILY (DME) FreeStyle Barbie 3 Sensor Device See Rx Instructions .Route Qty: 1 0RF Rx Instructions: As directed (DME) FreeStyle Barbie 14 Day [place] Misc See Rx Instructions .Route Qty: 1 0RF Rx Instructions: As directed (DME) FreeStyle Barbie 2 Sensor Kit See Rx Instructions .Route Qty: 2 11RF Rx Instructions: As directed glipizide 5 mg tablet 2.5 mg PO BID Qty: 90 3RF triamcinolone acetonide 0.5 % cream 1 applic topical BID Qty: 30 3RF clopidogrel [Plavix] 75 mg tablet 75 mg PO QDAY 90 Days Qty: 90 3RF atorvastatin [Lipitor] 20 mg tablet 20 mg PO QHS 90 Days Qty: 90 3RF aspirin [Adult Aspirin Regimen] 81 mg tablet,delayed release (DR/EC) 81 mg PO QDAY 90 Days Qty: 90 3RF nitrofurantoin macrocrystal 50 mg capsule 50 mg PO Q24H 90 Days Qty: 90 3RF Follow Up/Referrals: Audra Doss APRN, BILLING SPECIALIST [Primary Care Provider] - Stand Alone Forms: Health system Info Instructions
--- NOTE | 2023-10-09 18:37 | CT_ITS ---
Patient: ZULMA MEDINA Facility:?[facility] RIS Patient ID:?[id number] Site Patient ID:?[id number]. Site :?1940 Study:?CT-Head W/O-10/09/2023 7:15:40 PM Ordering Physician:MARSHA Final Report: INDICATION: Slurred speech TECHNIQUE: Noncontrast axial CT of the head is submitted. Compared to prior study from January 03, 2023. FINDINGS: Moderate cerebral atrophy. The ventricles, sulci and gyri are of normal size, shape and contour for age and degree of atrophy. Midline structures are centrally located. No convincing evidence of suspicious intra- or extra-axial fluid collections. Moderate patchy regions of decreased attenuation within the periventricular and subcortical white matter of both cerebral hemispheres. IMPRESSION: 1. No radiographic evidence of acute intracranial abnormalities. 2. Moderate cerebral atrophy. 3. Moderate supratentorial white matter changes that are non-specific, but statistically most likely related to chronic small vessel ischemic disease. Please note that all CT scans at this facility use dose modulation, iterative reconstruction, and/or weight-based dosing when appropriate to reduce radiation dose to as low as reasonably achievable. Dictated by Weston Winston MD @ 10/09/2023 8:44:29 PM Signed by:?Weston Winston MD @10/09/2023 8:44:29 PM (Electronic Signature)
[2023-10-09 19:06] LABS: PCR FLU A Negative PCR FLU A (Negative); PCR FLU B Negative PCR FLU B (Negative); PCR RSV Negative PCR RSV (Negative); SARS PCR* Negative SARS-CoV-2 (Negative)
[2023-10-09] MEDS: 0.9 % SODIUM CHLORIDE 1000 ml 1,000 ML IV (19:15)
[2023-10-09 19:24] LABS: Basophils Percent Auto 0.2 % (0.0-3.0); Eosinophils Percent Auto 0.1 % (0.0-7.0); Hematocrit 37.7 % (33.0-51.0); Hemoglobin* 12.2 gm/dL (12.0-16.0); Immature Granulocytes Pct Auto 0.2 %; Lymphocytes Percent Auto 5.8 % (20-44); Mean Corpuscular HGB Conc 32 gm/dL (32-36); Mean Corpuscular Hemoglobin 30 pg (26-34); Mean Corpuscular Volume 92 fL (80-100); Monocytes Percent Auto 7.5 % (0.0-11.0); Neutrophils Percent Auto 86.2 % (42.0-72.0); Platelet Count* 277 K/uL (140-440); RDW Coefficient of Variation % 12.8 % (11.5-15.5); Red Blood Count 4.12 m/uL (4.00-5.20); White Blood Count* 16.86 K/uL (4.50-11.00)
[2023-10-09 19:28] LABS: Slide Review Reflex No
[2023-10-09 19:37] LABS: Chloride* 97 mmol/L (96-114); Potassium* 3.9 mmol/L (3.6-5.1); Sodium* 135 mmol/L (135-149)
[2023-10-09 19:39] LABS: Creatinine* 0.6 mg/dL (0.5-1.5); Est. Creatinine Clearance* 32.53; Estimated Glomerular Filt Rate 88 ml/min
[2023-10-09 19:40] LABS: Anion Gap 16 mEq/L (7-15); Blood Urea Nitrogen* 19 mg/dL (7-30); Calcium* 9.8 mg/dL (8.4-10.6); Carbon Dioxide* 22 mmol/L (20-32); Glucose* 281 mg/dL (60-115)
[2023-10-09 20:32] LABS: Appearance Urine Cloudy (Clear); Bilirubin Urine 2+ (Negative); Blood Urine Trace-intact (Negative); Color Urine Red (Yellow); Glucose Urine 2+ (Negative); Ketones Urine 2+ (Negative); Leukocyte Esterase Urine 3+ (Negative); Nitrite Urine Positive (Negative); Protein Urine 3+ (Negative)
[2023-10-09 20:43] LABS: Bacteria Urine Many; WBC Urine >100 (0-5)
[2023-10-09] MEDS: cefTRIAXone 1 GM in 0.9 % SODIUM CHLORIDE Mini-bag 100 ML IVPB (21:18)
== END 2023-10-09 23:02 | disposition home or self-care (01) ==
PROVIDERS: Emergency Provider Family Medicine; PCP Nurse Practitioner Family
DX: N39.0 Urinary tract infection, site not specified (principal); R65.10 Systemic inflammatory response syndrome (SIRS) of non-infectious origin without acute organ dysfunction; Z91.199 Patient's noncompliance with other medical treatment and regimen due to unspecified reason
CPT/HCPCS: 36415; 70450; 80048; 81001; 85025; 87086; 87186; 87631; 93005; 96365; 99284; 99285; 99291; J0696; J7030

== ENCOUNTER 2023-11-02 15:45 | Outpatient (CLI) | payer MEDICARE, SELFPAY | END 2023-11-02 15:46 | disposition home or self-care (01) | PROVIDERS: PCP Nurse Practitioner Family; Visit Provider Nurse Practitioner Family | DX: D64.9 Anemia, unspecified (principal); N39.0 Urinary tract infection, site not specified; R63.4 Abnormal weight loss; Z83.49 Family history of other endocrine, nutritional and metabolic diseases; Z13.29 Encounter for screening for other suspected endocrine disorder | CPT/HCPCS: 80053; 81001; 84443; 85025; 87086 ==

== ENCOUNTER 2023-11-06 04:00 | Outpatient (CLI) | payer MEDICARE, SELFPAY | END 2023-11-06 04:01 | disposition home or self-care (01) | LOC: NFLDREF 11-10 09:09 | PROVIDERS: PCP Nurse Practitioner Family; Referring Provider Nurse Practitioner Family; Visit Provider Nurse Practitioner Family | DX: R19.7 Diarrhea, unspecified (principal) | CPT/HCPCS: 87493 ==

== ENCOUNTER 2023-11-13 10:24 | Outpatient (CLI) | payer MEDICARE, SELFPAY ==
--- NOTE | 2023-11-13 11:00 | CT_ITS ---
Patient: ZULMA MEDINA Facility:?[facility] RIS Patient ID:?[id number] Site Patient ID:?[id number]. Site :?1940 Study:?CT-Chest/Abd/Pelvis 58CC ISOVUE 370 AND WATER PREP-11/13/2023 11:46:25 AM Ordering Physician:?DR. BURGER Final Report: INDICATION: Abnormal weight loss TECHNIQUE: CT chest, abdomen and pelvis acquired with 58 mL Isovue 370 IV contrast. COMPARISON: None. FINDINGS: CHEST: Cardiovascular structures: Heart size is normal. Thoracic aorta and main pulmonary artery are normal in caliber. Coronary artery and aortic valve calcification. Mediastinum and scott: No mass or adenopathy. Lungs and pleura: Lungs and pleural spaces are clear. No suspicious nodules, infiltrates, or effusions. Chest wall and axilla: No mass or adenopathy. Bones: No suspicious bone lesions. Unremarkable for age. ABDOMEN AND PELVIS: Liver: Contour is subtly nodular suggesting cirrhosis. No solid mass. Gallbladder and bile ducts: Gallbladder is contracted. Common bile duct dilated at 1.2 cm with abrupt cut off at the margin of the pancreas, image 144 series 4. Mild dilation of the intrahepatic biliary tree Pancreas: Moderately atrophic distal to the pancreatic head. No ductal dilation Spleen: Unremarkable. Adrenal glands: 1 cm right adrenal nodule. This does not meet technical criteria for an adenoma. Kidneys: Postsurgical changes lower pole left kidney. Kidney is otherwise normal. GI tract: Unremarkable. Vascular structures: Atherosclerosis. Lymph nodes: Unremarkable. Miscellaneous: Unremarkable. No free air or significant free fluid. Pelvic Organs: Unremarkable. Bones: Bilateral hip arthroplasties. IMPRESSION: 1. Dilated biliary tree with cutoff of the common bile duct at the pancreatic head and atrophy of the pancreatic body and tail. Occult pancreatic adenocarcinoma should be excluded. Recommend MRI pancreas/MRCP. 2. Ductal indeterminate 1 cm right adrenal nodule. 3. Possible hepatic cirrhosis. Please note that all CT scans at this facility use dose modulation, iterative reconstruction, and/or weight-based dosing when appropriate to reduce radiation dose to as low as reasonably achievable. Dictated by Juan Ritchie MD @ 11/14/2023 9:38:36 AM Signed by:?Juan Ritchie MD @11/14/2023 9:38:36 AM (Electronic Signature)
== END 2023-11-13 10:25 | disposition home or self-care (01) ==
PROVIDERS: PCP Nurse Practitioner Family; Visit Provider Nurse Practitioner Family
DX: R63.4 Abnormal weight loss (principal); E27.9 Disorder of adrenal gland, unspecified
CPT/HCPCS: 71260; 74177; Q9967

== ENCOUNTER 2023-11-16 11:40 | Outpatient (CLI) | payer MEDICARE, SELFPAY | END 2023-11-16 11:41 | disposition home or self-care (01) | PROVIDERS: PCP Nurse Practitioner Family; Visit Provider Nurse Practitioner Family | DX: N39.0 Urinary tract infection, site not specified (principal); R39.9 Unspecified symptoms and signs involving the genitourinary system | CPT/HCPCS: 81001; 87086; 87186 ==

== ENCOUNTER 2023-12-12 21:56 | Emergency (ER) | payer MEDICARE, SELFPAY ==
[2023-12-12 22:09] VITALS: BP 124/58; PULSE 103; RESP 16; TEMP 37.7; O2SAT 97; BMI 21.5
--- NOTE | 2023-12-12 22:21 | CT_ITS ---
Patient: ZULMA MEDINA Facility:?[facility] RIS Patient ID:?[id number] Site Patient ID:?[id number]. Site :?1940 Study:?CT-Head Angio W/ISOVUE 370 95CC-12/13/2023 12:43:09 AM Ordering Physician:PATSY Final Report: CLINICAL HISTORY: Stroke. TECHNIQUE: Standard helical CT image acquisition through the head following the administration of intravenous contrast was performed. 3D and MIP reconstructions were performed at a separate workstation and permanently archived. COMPARISON: CTA head dated 01/03/2023. FINDINGS: Intracranial atherosclerotic disease without proximal large vessel occlusion or flow-limiting luminal stenosis. No evidence of cerebral aneurysm. No findings to suggest an arterial-venous shunting lesion. The major dural venous sinuses and deep venous system are patent. IMPRESSION: Intracranial atherosclerotic disease without proximal large vessel occlusion or flow-limiting luminal stenosis. Please note that all CT scans at this facility use dose modulation, iterative reconstruction, and/or weight-based dosing when appropriate to reduce radiation dose to as low as reasonably achievable. Dictated by Gabriel Mcgovern MD @ 12/13/2023 10:31:08 AM Signed by:?Gabriel Mcgovern MD @12/13/2023 10:31:08 AM (Electronic Signature)
--- NOTE | 2023-12-12 22:21 | CT_ITS ---
Patient: ZULMA MEDINA Facility:?[facility] RIS Patient ID:?[id number] Site Patient ID:?[id number]. Site :?1940 Study:?CT-Head W/O-12/13/2023 12:40:35 AM Ordering Physician:PATSY Final Report: INDICATION: TIA, slurred speech. TECHNIQUE: CT head without contrast. COMPARISON: 10/09/2023. FINDINGS: CSF spaces: Proportionate prominence of the ventricles and sulci, reflecting moderate generalized cerebral volume loss. Brain parenchyma: The hill-white differentiation is maintained. Patchy white matter low attenuation changes, nonspecific but likely reflecting chronic small vessel ischemic disease. No sign of mass, hemorrhage, or midline shift. Atherosclerotic calcifications of the cavernous carotids and carotid siphons. Skull base and calvarium: The visualized paranasal sinuses and mastoid air cells demonstrate no acute or significant findings. Bilateral lens thinning. No skull fractures. IMPRESSION: No acute intracranial abnormality. Please note that all CT scans at this facility use dose modulation, iterative reconstruction, and/or weight-based dosing when appropriate to reduce radiation dose to as low as reasonably achievable. Dictated by Fracisco Miller MD @ 12/13/2023 12:53:24 AM Signed by:?Fracisco Miller MD @12/13/2023 12:53:24 AM (Electronic Signature)
--- NOTE | 2023-12-12 22:21 | CT_ITS ---
Patient: ZULMA MEDINA Facility:?[facility] RIS Patient ID:?[id number] Site Patient ID:?[id number]. Site :?1940 Study:?CT-Neck Angio W/ISOVUE 370 95CC-12/13/2023 12:44:37 AM Ordering Physician:PATSY Final Report: CLINICAL HISTORY: Acute neurological deficit. TECHNIQUE: Standard helical CT image acquisition through the neck was performed after intravenous contrast bolus enhancement. 3D and MIP reconstructions were performed at a separate workstation and permanently archived. COMPARISON: CTA head and neck dated 01/03/2023. FINDINGS: The origins of the great vessels from the aortic arch are patent. The common carotid arteries are patent. No significant luminal stenoses of the proximal ICAs by NASCET criteria. Mild (<50%) atherosclerotic stenosis of the proximal right ICA, by NASCET criteria. Interval left carotid endarterectomy with a patent graft. The more distal cervical ICAs are patent. [id number] stenosis at the origin of the right vertebral artery. The origin of the left vertebral artery is patent. The cervical segments of the vertebral arteries are patent. IMPRESSION: 1. Interval left carotid endarterectomy with a patent graft. 2. Mild (<50%) atherosclerotic stenosis of the proximal right ICA by NASCET criteria. 3. [id number] stenosis of the origin of the right vertebral artery. Please note that all CT scans at this facility use dose modulation, iterative reconstruction, and/or weight-based dosing when appropriate to reduce radiation dose to as low as reasonably achievable. Dictated by Gabriel Mcgovern MD @ 12/13/2023 10:28:47 AM Signed by:?Gabriel Mcgovern MD @12/13/2023 10:28:47 AM (Electronic Signature)
--- OUTSIDE RECORDS SUMMARY | 2023-12-12 22:32 | XMS_ITS | Encounter Summary ---
Author Name Unknown Organization [facility] Address [address] [place] [address] Care Team Providers Care Lot Associate Name Role Phone Unavailable Primary Care Provider Unavailabl e Reason for Referral * MRI/CAT/PET Scan (Routine) - Closed Specialty Diagnoses / Procedures Referred By Gary elliott Referred To Contact Radiology Diagnoses Mass Pancreas Procedures CT Pancreas Angiogram Triple Phase and Pelvis with IV Contrast Calvin Bailey M.D. 200 [place] [address] [facility] Referral ID Status Reason Start Date Expiration Date Visits Re quested Visits Authorized [id number] Closed 11/30/2023 11/29/2024 1 1 Reason for Visit * MRI/CAT/PET Scan (Routine) - Closed Specialty Diagnoses / Procedures Referred By Gary elliott Referred To Contact Radiology Diagnoses Mass Pancreas Procedures CT Pancreas Angiogram Triple Phase and Pelvis with IV Contrast Calvin Bailey M.D. [address] [place] [phone] [facility] Referral ID Status Reason Start Date Expiration Date Visits Re quested Visits Authorized [id number] Closed 11/30/2023 11/29/2024 1 1 Encounter Details Date Type Department Care Team ([facility] st Contact Info) Description 12/12/2023 11:34 AM CDT Hospital Encounter Department of Radiology, [facility], in [place], [place] [address] [place] [phone] Calvin Bailey M.D. [address] [place] [address] Mass Pancreas Social History Tobacco Use Types Packs/Day Years Used Date Smoking Tobacco: Never Smokeless Tobacco: Never Alcohol Use Standard Drinks/Week Comments No 0 (1 standard drink = 0.6 oz pur e alcohol) [facility] Utilities Answer Date Recorded In the past 12 months has e [employer], gas, oil, or water [employer] threatened to shut off services in your home? No 11/29/2023 Exercise Vital Sign Answer Date Recorde d On average, how many days pe r week do you engage in moderate to strenuous exercise (like a brisk walk)? 1 day 11/29/2023 On average, how many minutes do you engage in exercise at this level? 10 min 11/29/2023 Hunger Vital Sign Answer Date Recorded Within the past 12 months, y ou worried that your food would run out before you got the money to buy more. Never true 11/29/19 24 Within the past 12 months, t he food you bought just didn't last and you didn't have money to get more. Never true 11/29/2023 PRAPARE - Transportation Answer Date Re corded In the past 12 months, has l ack of transportation kept you from medical appointments or from getting medications? No 11/12 In the past 12 months, has l ack of transportation kept you from meetings, work, or from getting things needed for daily living? No 11/29/2023 Nutrition Answer Date Recorded Nutrition: EVOO Fat Source Unknown 11/28 On average, how many serving s of fruits and vegetables do you eat per day (serving size is equal to 1 cup or approximately the size of a tennis ball)? 0-2 11/29/2023 Dental Answer Date Recorded Dental: Regular Dentist Unknown 10/17/19 21 Employment Answer Date Recorded Employment status Retired 11/29/2023 Housing Stability Answer Date Recorded What is your living situation today? I have a [facility] place to live 11/29/2023 Sex and Gender Information Value Date Recorded Sex Assigned at Female 11/29/2023 7:47 PM CDT Gender Identity Female 11/29/2023 7:47 PM CDT Sexual Orientation Straight 11/29/2023 7: 47 PM CDT documented as of this encounter Plan of Treatment Upcoming Encounters Date Type Department Care Team (Latest Contact Info) Description 12/13/2023 9:20 AM CDT Comprehensive Visit Division of Gastroenterology in [place], [place] [address] [place] [address] Audra Doss C.N.P. [address] [place] [phone] Sam Lee M.D. [address] [place] [phone] 12/25/2023 1:30 PM CDT Appointment Division of Gastroenterology in [place], [place] [address] [place] [address] Calvin Bailey M.D. [address] [place] [phone] Isrrael Caruso M.D. [address] [place] [phone] 12/29/2023 9:00 AM CDT Clinical Support Department of Nutrition and Diabetes Education in [place], [place] [address] [place] [address] Calvin Bailey M.D. [address] [place] [phone] Maricruz Ryan M.S., RDN, LD [address] [place] [phone] 01/15/2024 8:00 AM CDT Procedure visit Department of Urology in [address] [phone] Alejandra Souza P.A.-C. [address] [phone] Discharge Disposition: Home or Self Care documented as of this encounter Procedures Procedure Name Priority Date/Time Associated Diagnosis Comments CT PANCREAS ANGIOGRAM TRIPLE PHASE AND PELVIS WITH IV CONTRAST RAD - Routine (most inpatients and all outpatients) 12/12/2023 12:45 PM CDT Mass Pancreas documented in this encounter Results * CT Pancreas Angiogram Triple Phase and Pelvis with IV Contrast (12/12/2023 12:45 PM CDT) Anatomical Region Laterality Modality Abdomen, Pelvis, Abdominal R ST LOS, Abdominal ARZ LOS, Vascular Interventional ARZ LOS, Vascular Interventional FLA LOS, Abdominal FLA LOS N/A Computed Tomography, Compute d Tomography 12/12/2023 12:3 8 PM CDT Impressions 12/12/2023 2:38 PM CDT 1. Stricturing of the lower common bile duct over a 30 mm segment to the ampulla. Malignant etiology cannot be ruled out. 2. Resultant marked dilatation of the upstream biliary system. 3. Prominent gastrohepatic and periportal lymph nodes are indeterminate. Indeterminate right adrenal nodule measuring up to 11 mm. No other findings suggestive of metastatic disease in the abdomen or pelvis. 4. Colonic wall thickening of the transverse colon, descending colon, sigmoid colon and rectum, suggestive of inflammatory changes. Endoscopy may be required to more definitively assess. Narrative 12/12/2023 2:38 PM CDT EXAM: ??CT PANCREAS ANGIOGRAM TRIPLE PHASE AND PELVIS WITH IV CONTRAST COMPARISON: ??CT 11/13/2023. FINDINGS: ?? Marked biliary dilatation with dilatation of all intrahepatic ducts, the common hepatic duct and the upper common bile duct. Transition point in the lower common bile duct with circumferential bladder wall thickening and mural enhancement over a 30 mm segment (series 16, image 37). The wall thickening is irregular but essentially circumferential and without any focal masslike thickening. No definite extraluminal soft tissue stranding appreciated. Normal caliber the pancreatic duct to the level of the ampulla. Diffuse atrophy of the pancreas. Heterogenous enhancement of the liver, most pronounced arterial and pancreatic phases. This is likely perfusional in etiology. No suspicious hepatic lesions. Hepatic and portal veins are widely patent. Conventional hepatic arterial anatomy. No abdominal or pelvic lymphadenopathy. Prominent gastrohepatic lymph node measuring 6 mm (series 9, image 58) and multiple periportal lymph nodes the largest measuring up to 6 mm in short axis (series 9, image 100). These are indeterminate, favoring reactive changes. No peritoneal thickening or nodularity. No ascites. Scarring and atrophy of the lower pole of the left kidney. Hiatal hernia. Right adrenal nodule measuring up to 11 mm (series 9, image 85). Diffuse thickening and mural hyperenhancement involving the transverse colon, descending colon, sigmoid colon and rectum, suggestive of nonspecific inflammatory changes. The spleen is negative. Aortoiliac atherosclerosis. No suspicious osseous lesions. Bilateral total hip replacements. The lung bases are clear. Procedure Note Nasim Vasquez M.B., B.Ch., B.A.O. - 12/12/2023 EXAM: CT PANCREAS ANGIOGRAM TRIPLE PHASE AND PELVIS WITH IV CONTRAST COMPARISON: CT 11/13/2023. FINDINGS: Marked biliary dilatation with dilatation of all intrahepatic ducts, thecommon hepatic duct and the upper common bile duct. Transition point inthe lower common bile duct with circumferential bladder wall thickeningand mural enhancement over a 30 mm segment (series 16, image 37). The wall thickening is irregular but essentially circumferential andwithout any focal masslike thickening. No definite extraluminal soft tissue stranding appreciated. Normal caliber the pancreatic duct to the level of the ampulla. Diffuseatrophy of the pancreas. Heterogenous enhancement of the liver, most pronounced arterial andpancreatic phases. This is likely perfusional in etiology. No suspicioushepatic lesions. Hepatic and portal veins are widely patent. Conventional hepatic arterial anatomy. No abdominal or pelvic lymphadenopathy. Prominent gastrohepatic lymph nodemeasuring 6 mm (series 9, image 58) and multiple periportal lymph nodesthe largest measuring up to 6 mm in short axis (series 9, image 100).These are indeterminate, favoring reactive changes. No peritoneal thickening or nodularity. No ascites. Scarring and atrophy of the lower pole of the left kidney. Hiatal hernia.Right adrenal nodule measuring up to 11 mm (series 9, image 85). Diffusethickening and mural hyperenhancement involving the transverse colon,descending colon, sigmoid colon and rectum, suggestive of nonspecific inflammatory changes. The spleen isnegative. Aortoiliac atherosclerosis. No suspicious osseous lesions. Bilateral total hip replacements. The lung bases are clear. IMPRESSION: 1. Stricturing of the lower common bile duct over a 30 mm segment to theampulla. Malignant etiology cannot be ruled out. 2. Resultant marked dilatation of the upstream biliary system. 3. Prominent gastrohepatic and periportal lymph nodes are indeterminate.Indeterminate right adrenal nodule measuring up to 11 mm. No otherfindings suggestive of metastatic disease in the abdomen or pelvis. 4. Colonic wall thickening of the transverse colon, descending colon,sigmoid colon and rectum, suggestive of inflammatory changes. Endoscopymay be required to more definitively assess. Calvin SANTOS CT PROCEDURES documented in this encounter Visit Diagnoses Diagnosis Mass Pancreas documented in this encounter Administered Medications Inactive Administered Medications - up to 3 most recent administrations Medication Order MAR Action Action Date Dose Rate Site iohexoL 350 mg iodine/mL solution 1-200 mL (OMNIPAQUE) 1-200 mL, intravenous, Once in imaging, contrast, Starting on Mon12/12/23 at 1212, For 1 dose, Imaging Protocol Orders, Dose per Radiant Medication Guidelines Given 12/12/2023 12:27 PM CDT 100 mL sodium chloride (PF) 0.9 % injection 1-100 mL 1-100 mL, intravenous, Once, On Mon12/12/23 at 1230, For 1 dose, Imaging Protocol Orders, Dose per Radiant Medication Guidelines Given 12/12/2023 12:27 PM CDT 50 mL documented in this encounter
--- OUTSIDE RECORDS SUMMARY | 2023-12-12 22:32 | XMS_ITS | Encounter Summary ---
Author Name Unknown Organization [facility] Address [address] [place] [address] Care Team Providers Care Tool Design Checker Name Role Phone Unavailable Primary Care Provider Unavailabl e Encounter Details Date Type Department Care Team (Latest Contact Info) Description 12/12/2023 Clinical Communication Division of Gastroenterology in [place], [place] [address] [place] [address] Prescheduling, Provider Social History Tobacco Use Types Packs/Day Years Used Date Smoking Tobacco: Never Smokeless Tobacco: Never Alcohol Use Standard Drinks/Week Comments No 0 (1 standard drink = 0.6 oz pur e alcohol) [facility] Utilities Answer Date Recorded In the past 12 months has th e electric, gas, oil, or water company threatened to shut off services in your [...] your living situation today? I have a [facility] place to live 11/29/2023 Sex and Gender Information Value Date Recorded Sex Assigned at Female 11/29/2023 7:47 PM CDT Gender Identity Female 11/29/2023 7:47 PM CDT Sexual Orientation Straight 11/29/2023 7: 47 PM CDT documented as of this encounter Plan of Treatment Upcoming Encounters Date Type Department Care Team (Latest Contact Info) Description 12/13/2023 9:20 AM CDT Comprehensive Visit Division of Gastroenterology in [place], [place] [address] [place] [phone] Audra Doss, CHerbertNHerbertP. [address] [place] [address] Sam Lee M.D. [address] [place] [phone] 12/25/2023 1:30 PM CDT Appointment Division of Gastroenterology in [place], [place] [address] [place] [phone] Calvin Bailey M.D. [address] [place] [phone] Isrrael Caruso M.D. [address] [place] [phone] 12/29/2023 9:00 AM CDT Clinical Support Department of Nutrition and Diabetes Education in [place], [place] [address] [place] [address] Calvin Bailey M.D. [address] [place] [address] Maricruz Ryan M.S., RDN, LD [address] [place] [address] 01/15/2024 8:00 AM CDT Procedure visit Department of Urology in [address] [phone] Alejandra oSuza, MassielAHerbert-C. [address] [phone] Discharge Disposition: Home or Self Care documented as of this encounter Visit Diagnoses Not on filedocumented in this encounter
--- OUTSIDE RECORDS SUMMARY | 2023-12-12 22:32 | XMS_ITS | Encounter Summary ---
Author Name Unknown Organization [facility] Address [address] [place] [address] Care Team Providers Care County Or City Auditor Name Role Phone Unavailable Primary Care Provider Unavailabl e Reason for Visit * Reason Onset Date Comments Pre-visit Intake 12/12/2023 Encounter Details Date Type Department Care Team (Latest Contact Info) Description 12/12/2023 2:30 PM CDT Clinical Communication Virtual Review in [place], [place] 200 [place] [address] Pre-visit Intake Social History Tobacco Use Types Packs/Day Years Used Date Smoking Tobacco: Never Smokeless Tobacco: Never Alcohol Use Standard Drinks/Week Comments No 0 (1 standard drink = 0.6 oz pur e alcohol) [facility] Utilities Answer Date Recorded In the past 12 months has th e electric, gas, oil, or water [employer] threatened to shut off services in your [...] Date Recorded Dental: Regular Dentist Unknown 10/17/19 Employment Answer Date Recorded Employment status Retired 11/29/2023 Housing Stability Answer Date Recorded What is your living situation today? I have a [facility] place to live 11/29/2023 Sex and [...] CDT Comprehensive Visit Division of Gastroenterology in [place], [place] [address] [place] [address] Audra Doss C.NHerbertP. [address] [place] [address] [place] [address] 12/25/2023 1:30 PM CDT Appointment Division of Gastroenterology in [place], [place] [address] [place] [phone] Calvin Bailey M.D. [address] [place] [phone] Isrrael [place] [phone] 12/29/2023 9:00 AM CDT Clinical Support Department of Nutrition and Diabetes Education in [place], [place] [address] [place] [address] Calvin Bailey M.D. [address] [place] [address] Maricruz Ryan M.S., RDN, LD [address] [place] [phone] 01/15/2024 8:00 AM CDT Procedure visit Department of Urology in [address] [phone] Alejandra Souza P.A.-C. [address] [place] [phone] Discharge Disposition: Home or Self Care documented as of this encounter Visit Diagnoses Not on filedocumented in this encounter
--- OUTSIDE RECORDS SUMMARY | 2023-12-12 22:32 | XMS_ITS | Encounter Summary ---
Author Name Unknown Organization [facility] Address [address] [place] [address] Care Team Providers Care Shirring Machine Operator Name Role Phone Unavailable Primary Care Provider Unavailabl e Reason for Visit * Reason Onset Date Comments Communication 11/03/2023 Encounter Details Date Type Department Care Team (Late st Contact Info) Description 11/03/2023 Clinical Communication Department of Urology in [address] [phone] Alejandra Souza, P.AHerbert-CHerbert [address] [phone] Communication Social History Tobacco Use Types Packs/Day Years Used Date Smoking Tobacco: Never Smokeless Tobacco: Never Alcohol Use Standard Drinks/Week Comments No 0 (1 standard drink = 0.6 oz pur e alcohol) Nutrition Answer Date Recorded Nutrition: EVOO Fat Source Unknown 10/16 Nutrition: Servings of Fruits/Vegetables per Day Not on file 10/16/2020 Dental Answer Date Recorded Dental: Regular Dentist Unknown 10/17/19 21 Sex and Gender Information Value Date Recorded Sex Assigned at Female 11/29/2023 7:47 PM CDT Gender Identity Female 11/29/2023 7:47 PM CDT Sexual Orientation Straight 11/29/2023 7: 47 PM CDT documented as of this encounter Miscellaneous Notes * Telephone Encounter - Mckenzie Ugarte R.N. - 11/06/2023 11:01 AM CDT Spoke w/ Antonia, she asked about the results of UA/UC & cytology, let her know these were negative. She had no further questions. * Telephone Encounter - Lianne Cohen L.P.N. - 11/03/2023 3:27 PM CDT Returned call to Antonia (LOC on file), however, she did not answer. Provided urology nurse station number for her to return call and answers questions. documented in this encounter Plan of Treatment Upcoming Encounters Date Type Department Care Team (Latest Contact Info) Description 12/13/2023 9:20 AM CDT Comprehensive Visit Division of Gastroenterology in [address] [phone] Audra Doss C.NHerbertP. [address] [place] [address] Sam Lee M.D. [address] [place] [phone] 12/25/2023 1:30 PM CDT Appointment Division of Gastroenterology in [address] [phone] Calvin Bailey M.D. [address] [place] [phone] Isrrael Caruso M.D. [address] [place] [phone] 12/29/2023 9:00 AM CDT Clinical Support Department of Nutrition and Diabetes Education in [place], [place] [address] [place] [phone] Calvin Bailey M.D. [address] [place] [address] Maricruz Ryan M.S., RDN, LD [address] [place] [phone] 01/15/2024 8:00 AM CDT Procedure visit Department of Urology in [address] [phone] Alejandra Souza P.A.-C. [address], [place] [address] Discharge Disposition: Home or Self Care documented as of this encounter Visit Diagnoses Not on filedocumented in this encounter
--- OUTSIDE RECORDS SUMMARY | 2023-12-12 22:32 | XMS_ITS ---
Author Name Unknown Organization [facility] Address [address] [place] [address] Care Team Providers Care Link Cutter Name Role Phone Unavailable Unavailable Unavailable Surgery Details Not on file Complications Check Surgery Details section. Procedure Estimated Blood Loss Check Surgery Details section. Procedure Findings Check Surgery Details section. Procedure Specimens Taken Check Surgery Details section.
--- OUTSIDE RECORDS SUMMARY | 2023-12-12 22:32 | XMS_ITS | Encounter Summary ---
Author Name Unknown Organization [facility] Address [address] [place] [address] Care Team Providers Care Fruit Vendor Name Role Phone Unavailable Primary Care Provider Unavailsienna e Reason for Referral * Outpatient (Routine) - Authorized Specialty Diagnoses / Procedures Referred By Contac t Referred To Contact Diagnoses Cystitis Recurrent Procedures Cystoscopy (specific provider) Alejandra Souza P.A.-C. [address] [phone] Alejandra Souza P.A.-C. [address] [place] [phone] Referral ID Status Reason Start Date Expiration Date V isits Requested Visits Authorized [id number] Authorized 10/18/2023 10/17/2024 1 1 GER LICENSING * MRI/CAT/PET Scan (Routine) - Authorized Specialty Diagnoses / Procedures Referred By Contac t Referred To Contact Radiology Diagnoses Urinary Tract Infection Site Not Specified Procedures CT Urogram without and with IV Contrast Alejandra Souza P.A.-C. [address] [place] [phone] [facility] Referral ID Status Reason Start Date Expiration Date V isits Requested Visits Authorized [id number] Authorized 10/18/2023 10/17/2024 1 1 GER LICENSING Reason for Visit * Appointment Request (Routine) - Closed Specialty Diagnoses / Procedures Referred By Gary elliott Referred To Contact Urology Referral ID Status Reason Start Date Expiration Date Visits Re quested Visits Authorized [id number] Closed 10/17/2023 10/16/2024 1 1 Encounter Details Date Type Department Care Team (Latest Contact Info) Description 10/18/2023 2:30 PM MANAGER LICENSING Comprehensive Visit Department of Urology in [address] [phone] Alejandra Souza P.A.-C. [address] [phone] Cystitis Recurrent (Primary Dx); Urinary Tract Infection Site Not Specified; Dysfunction Voiding Discharge Disposition: Home or Self Care Social History Tobacco Use Types Packs/Day Years Used Date Smoking Tobacco: Never Smokeless Tobacco: Never Tobacco Cessation:Counseling Given: Not Answered Alcohol Use Standard Drinks/Week Comments No 0 [...] PM CDT documented as of this encounter Patient Instructions * Patient Instructions* Alejandra Souza P.A.-C. - 10/18/2023 2:30 PM MANAGER LICENSING # 1 recurrent UTI # 2 gross hematuria, presumed associated with UTI # 3 history of urolithiasis Diagnostic consideration: - schedule CT urogram - schedule office cystoscopy/pelvic exam - standing orders for urinalysis with microscopy urine culture to use as needed when you feel you have infection ([place] system) Therapeutic considerations: - excellent hydration minimum 60 oz daily - avoid stool contamination (manage constipation - miralax daily), wipe from front to back, void after intercourse - attempt to void every 2 hours when awake - excellent control of blood sugars (elevated blood sugar means more sugar in the urine which meansfood for bacteria and bladder infections) - OTC: Cranberry capsules twice daily with food, probiotic twice daily with food - Estrogen therapy: 1) apply dime-sized amount to the external urethra 3 nights weekly or 2) estrogen ring placed intravaginally by healthcare provider needs to be exchanged every 12 weeks - continue low dose antibiotic: daily Macrobid (will consider replacing with methenamine/vitC) GER LICENSING documented in this encounter Consult Notes * Alejandra Souza P.A.-C. - 10/18/2023 2:30 PM CST SUBJECTIVE CHIEF COMPLAINT/REASON FOR VISIT Face to Face, uro clinic PEDRITO - limited records (Macrobid 50mg daily) Present UTI - cephalexin (rash) HISTORY OF PRESENT ILLNESS Pleasant 83-year-old presents today direction of her primary care team, [place]. For further discussion of recurrent UTI for the past year. He would like she has been treated for kidney infection,required a hospitalization and EMS visit. Generally patient can tell she has a bladder infection when she develops urgency frequency, her family notices irritability and altered mental status. Does improve with oral antibiotics but symptoms seem to returned quickly. She has 1 day remaining of cephalexin for a kidney infection for her daughter's report. Initially was started on Cipro and this was transition to Keflex based on culture. Sheseems to be improved. She did have gross hematuria with this infection this has since resolved. Subjective report, majority of infections are E Coli. Unfortunately, we do not have records, these are not available in care everywhere either. At baseline nocturia 5 times a night, much more frequent when she has infection, during the day shegoes several hours between avoid he would weight maybe 4-6 hours between going to the bathroom she does occasionally have urgency with urge incontinence wearing a pad but this is not routinely wet. Feels stream is easy she is able to fully empty no double voiding or Valsalva voiding no pain with urination at present he would have visible blood with most recent infection this has resolved has had recurrent UTI for the past year she has had previous kidney stones requiring surgery > a decade from her family's report. Denies any surgery to bladder uterus remains both ovaries remain she is 5 para 5 all vaginal deliveries she has no longer sexually active she has not aware of any pelvic organ prolapse. Chronic constipation she describes it as passing small round balls. She had a rash on lower extremities and her shoulder that seems to be somewhat moving around. REVIEW OF SYSTEMS Per HPI. Pain 0/10 MEDICAL HISTORY Patient Active Problem List Diagnosis Cataract Senile Nuclear Sclerosis Right Cataract Senile Nuclear Sclerosis Left Diabetes Mellitus Type 2 Without Complication (HCC) CURRENT MEDICATIONS Current Medications: glipiZIDE (GLUCOTROL) 10 mg tablet, Take 10 mg by mouth. ketorolac (ACULAR) 0.5 % ophthalmic solution, Administer 1 drop into the left eye 4 (four) times a day. Start 2 days piror to surgery and use until empty (Patient not taking: Reported on 07/04/2018 ) ketorolac (ACULAR) 0.5 % ophthalmic solution, Administer 1 drop into the right eye 4 (four) times aday. Start 2 days piror to surgery and use until empty (Patient not taking: Reported on 07/04/2018 ) metFORMIN (GLUCOPHAGE) 500 mg tablet, Take 500 mg by mouth. moxifloxacin (VIGAMOX) 0.5 % ophthalmic solution, Administer 1 drop into the left eye 4 (four) times a day. Start 2 days prior to surgery. Use until bottle is empty (Patient not taking: Reported on 07/04/2018 ) moxifloxacin (VIGAMOX) 0.5 % ophthalmic solution, Administer 1 drop into the right eye 4 (four) times a day. Start 2 days prior to surgery and use until empty (Patient not taking: Reported on 07/04/2018 ) OMEGA-3 FATTY ACIDS-EPA ORAL, Take 1 capsule by mouth. pravastatin (PRAVACHOL) 20 mg tablet, Take 20 mg by mouth. prednisoLONE acetate (PRED FORTE) 1 % ophthalmic suspension, Administer 1 drop into the right eye 4(four) times a day. Start 2 days prior to surgery and use for at least 30 days (Patient not taking:Reported on 07/04/2018 ) prednisoLONE acetate (PRED FORTE) 1 % ophthalmic suspension, Administer 1 drop into the left eye 4 (four) times a day. Start 2 days prior to surgery and use for 30 days following. (Patient not taking: Reported on 07/04/2018 ) ubiquinone (COENZYME Q10) 100 mg tablet, Take by mouth. ALLERGIES/CONTRAINDICATIONS Allergies Allergen Reactions Ampicillin Itching Tramadol Itching Sulfamethoxazole-Trimethoprim Rash OBJECTIVE VITAL SIGNS There were no vitals taken for this visit. PHYSICAL EXAMINATION General: Overall well-appearing, no acute distress. Skin: No raised areas, rashes or lesions to areas I inspected. Eyes: No scleral icterus, normal conjunctivae. Respiratory: Normal respiratory effort. Musculoskeletal: Walks with a steady gait, without assistance. Psychiatric: Appropriate affect. Neurological: Alert and oriented x4. DIAGNOSTICS BS 20ml via US, last void 2hrs ago Lab Results Component Value Date/Time CREATININE 1.00 (H) 01/19/2023 1221 CREATININE 0.80 01/05/2023 0623 CREATININE 0.79 01/04/2023 0430 CREATININE 0.8 01/24/2022 1354 CREATININE 1.0 11/02/2021 1110 CREATININE 0.95 06/01/2021 1438 CREATININE 0.81 05/04/2020 1146 CREATININE 0.81 12/31/2018 1116 CREATININE 0.84 05/14/2018 1451 CREATININE 0.84 05/14/2018 0000 ASSESSMENT / PLAN ASSESSMENT/PLAN # 1 recurrent UTI # 2 gross hematuria, presumed associated with UTI # 3 history of urolithiasis Diagnostic consideration: - schedule CT urogram - schedule office cystoscopy/pelvic exam - standing orders for urinalysis with microscopy urine culture to use as needed when you feel you have infection ([place] system) Therapeutic considerations: - excellent hydration minimum 60 oz daily - avoid stool contamination (manage constipation - miralax daily), wipe from front to back, void after intercourse - attempt to void every 2 hours when awake - excellent control of blood sugars (elevated blood sugar means more sugar in the urine which meansfood for bacteria and bladder infections) - OTC: Cranberry capsules twice daily with food, probiotic twice daily with food - Estrogen therapy: 1) apply dime-sized amount to the external urethra 3 nights weekly or 2) estrogen ring placed intravaginally by healthcare provider needs to be exchanged every 12 weeks - continue low dose antibiotic: daily Macrobid (will consider replacing with methenamine/vitC) PATIENT EDUCATION Ready to learn, no apparent learning barriers were identified; learning preferences include listening. Explained diagnosis and treatment plan; patient expressed understanding of the content. documented in this encounter Plan of Treatment Upcoming Encounters Date Type Department Care Team (Latest Contact Info) Description 12/13/2023 9:20 AM CDT Comprehensive Visit Division of Gastroenterology in [place], [place] [address] [place] [phone] Audra Doss C.N.P. [address] [place] [phone] Sam Lee M.D. [address] [place] [phone] 12/25/2023 1:30 PM CDT Appointment Division of Gastroenterology in [place], [place] [address] [place] [phone] Calvin Bailey M.D. [address] [place] [phone] Isrrael Caruso M.D. [address] [place] [phone] 12/29/2023 9:00 AM CDT Clinical Support Department of Nutrition and Diabetes Education in [place], [place] [address] [place] [phone] Calvin Bailey M.D. [address] [place] [phone] Maricruz Ryan M.S., RDN, LD [address] [place] [phone] 01/15/2024 8:00 AM CDT Procedure visit Department of Urology in [place], [place] [address] [place] [phone] Alejandra Souza P.A.-C. [address] [phone] Discharge Disposition: Home or Self Care Scheduled Orders Name Type Priority Associated Diagnoses Order Schedule CT Urogram without and with IV Contrast Imaging RAD - Routine (most inpatients and all outpatients) Urinary Tract Infection Site Not Specified Expected: 10/18/2023 (Approximate), Expires: 01/17/2025 Urinalysis, with Microscopic: Urine, Midstream Lab Routine Cystitis Recurrent monthly for 3 Occurrences starting 10/18/2023 until 01/17/2025 Bacterial Culture, Aerobic + Susceptibility, Urine Microbiology Routine Cystitis Recurrent monthly for 3 Occurrences starting 10/18/2023 until 01/17/2025 Creatinine with Estimated GFR Lab Routine Cystitis Recurrent 1 Occurrences starting 10/18/2023 until 01/17/2025 documented as of this encounter Procedures Procedure Name Priority Date/Time Associated Diagnosis Comments CYTOLOGY NON-ASSISTANT SURVEYOR Routine 10/18/2023 4:12 PM MANAGER LICENSING Cystitis Recurrent BACTERIAL CULTURE, AEROBIC + SUSC, URINE Routine 10/18/2023 4:11 PM MANAGER LICENSING Cystitis Recurrent URINALYSIS WITH MICROSCOPIC Routine 10/18/2023 4:11 PM MANAGER LICENSING Cystitis Recurrent documented in this encounter Results * Cytology Non-ASSISTANT SURVEYOR (10/18/2023 4:12 PM MANAGER LICENSING) 10/20/2023 10:42 AM MANAGER LICENSING ECLR Fixative n/a 10/20/2023 10:42 AM MANAGER LICENSING ECLR Report electronically signed by Romie Moran M.D. I verify that I have examined all relevant slides/material s for the specimen(s) and rendered or confirmed the diagnosis. 10/20/2023 10:42 AM MANAGER LICENSING ECLR Gross Description Received 40 cc of cloudy yellow fluid without fixative. 10/20/2023 10:42 AM MANAGER LICENSING ECLR Collection Procedure Straight cath 10/20/2023 10:42 AM MANAGER LICENSING ECLR Source A. Urine, straight, catheterized 10/20/2023 10:42 AM MANAGER LICENSING ECLR Clinical History recurrent UTIs 03/2024 10:42 AM MANAGER LICENSING ECLR Interpretation A. Urine, straight, catheterized (cytospin): Negative for High-Grade Urothelial Carcinoma. Crystals present. 10/20/2023 10:42 AM MANAGER LICENSING ECLR Urine 10/18/2023 4:12 PM MANAGER LICENSING 10/19/2023 1:48 PM MANAGER LICENSING Alejandra Souza P.A.-C. LAB SURG PATH OR DERABLES Performing Organization Address [facility] Co de Phone Number [facility] [address] [place] [phone], [facility] ECLR [address] [place] [phone] * Bacterial Culture, Aerobic + Susceptibility, Urine (10/18/2023 4:11 PM MANAGER LICENSING) Urine Culture No growth after 1 day of incubation. 10/19/2023 3:19 PM MANAGER LICENSING ECLR Urine (Urine, Straight Catheter) 10/18/2023 4:11 PM MANAGER LICENSING 10/18/2023 8:40 PM MANAGER LICENSING Comment:Specimen Source Site : Urine Alejandra Souza P.A.-C. LAB MICROBIOLOGY - GENERAL ORDERABLES Performing Organization Address [facility] Co de Phone Number [facility] [address] [place] [phone], [facility] ECLR [facility] in [address] [address] * (ABNORMAL) Urinalysis, with Microscopic: Urine, Straight Catheter (10/18/2023 4:11 PM MANAGER LICENSING) Source Urine, Urine, Straight Catheter 10/18/2023 4:39 PM MANAGER LICENSING RDWG Clarity Cloudy(A) Clear 10/18/2023 4:39 PM MANAGER LICENSING RDW[facility] Color Ludmila 10/18/2023 4:39 PM MANAGER LICENSING RDWG Comment: ----REFERENCE VALUE---- Colorless Yellow [place] Blood Negative Negative 10/18/2023 4:39 PM MANAGER LICENSING RDWG Nitrite Negative Negative 10/18/2023 4:39 PM MANAGER LICENSING RDWG Leukocyte Esterase Negative Negative 10/18/2023 4:39 PM MANAGER LICENSING RDWG Protein 30(A) mg/dL 10/18/2023 4:39 PM MANAGER LICENSING RDWG Comment: ----REFERENCE VALUE---- Negative Trace Glucose 250(A) Negative mg/dL 10/18/2023 4:39 PM MANAGER LICENSING RDWG Ketone Trace(A) Negative mg/dL 10/18/2023 4:39 PM MANAGER LICENSING RDWG Bilirubin Small(A) Negative 10/18/2023 4:39 PM MANAGER LICENSING RDW[facility] pH 5.5 5.0 - 8.0 10/18/2023 4:39 PM MANAGER LICENSING RDW[facility] Specific [place] 1.021 1.001 - 1.035 10/18/2023 4:39 PM MANAGER LICENSING RDWG Urobilinogen 1.0 0.2 - 1.0 mg/dL 10/18/2023 4:39 PM MANAGER LICENSING RDWG White Blood Cells 11-20(A) /hpf 10/18/2023 6:05 PM MANAGER LICENSING RDWG Comment: ----REFERENCE VALUE---- Males: 0-3 Females: 0-10 Unknown: 0-10 Red Blood Cells 3-10(A) 0 - 2 /hpf 6:05 PM MANAGER LICENSING RDWG Dysmorphic Red Blood Cells <=25 <=25 % 10/18/2023 6:05 PM MANAGER LICENSING RDWG Hyaline Casts None Seen /lpf 10/18/2023 6:05 PM MANAGER LICENSING RDW[facility] Granular Casts 4-10(A) None Seen /lpf 10/18/2023 6:05 PM MANAGER LICENSING RDW[facility] Squamous Cells 4-10 /hpf 10/18/2023 6:05 PM MANAGER LICENSING RDW[facility] Urine (Urine, Straight Catheter) 10/18/2023 4:11 PM MANAGER LICENSING 10/18/2023 4:25 PM MANAGER LICENSING Alejandra Souza P.A.-C. LAB URINE ORDERA BLEGardenia [facility] [address] [place] [address], [facility] RDWG [facility] in [place] [address] [place] [phone] documented in this encounter Visit Diagnoses Diagnosis Cystitis Recurrent- Primary Urinary Tract Infection Site Not Specified Dysfunction Voiding documented in this encounter
--- OUTSIDE RECORDS SUMMARY | 2023-12-12 22:32 | XMS_ITS | Encounter Summary ---
Author Name Unknown Organization [facility] Address [address] [place] [address] Care Team Providers Care Hat Lining Paster Name Role Phone Unavailable Primary Care Provider Unavailabl e Reason for Visit * Reason Onset Date Comments Pre-visit Intake 11/29/2023 Encounter Details Date Type Department Care Team (Latest Contact Info) Description 11/29/2023 10:00 AM CDT Clinical Communication Virtual Review in [place], [place] [address] [place] [phone] Pre-visit Intake Social History Tobacco Use Types Packs/Day Years Used Date Smoking Tobacco: Never Smokeless Tobacco: Never Alcohol Use Standard Drinks/Week Comments No 0 (1 standard drink = 0.6 oz pur e alcohol) [facility] Utilities Answer Date Recorded In the [...] your living situation today? I have a [facility] place [facility] live 11/29/2023 Sex and [...] CDT Comprehensive Visit Division of Gastroenterology in [place], [place] [address] [place] [phone] Audra Doss C.NHerbertP. [address] [place] [phone] [place] [phone] 12/25/2023 1:30 PM CDT Appointment Division of Gastroenterology in [place], [place] [address] [place] [phone] Calvin Bailey M.D. [address] [place] [phone] Isrrael [place] [phone] 12/29/2023 9:00 AM CDT Clinical Support Department of Nutrition and Diabetes Education in [place], [place] [address] [place] [phone] Calvin Bailey M.D. [address] [place] [phone] Maricruz Ryan M.S., RDN, LD [address] [place] [phone] 01/15/2024 8:00 AM CDT Procedure visit Department of Urology in [address] [phone] Alejandra Souza P.A.-C. [address] [place] [phone] Discharge Disposition: Home or Self Care documented as of this encounter Visit Diagnoses Not on filedocumented in this encounter
--- OUTSIDE RECORDS SUMMARY | 2023-12-12 22:32 | XMS_ITS | Encounter Summary ---
Author Name Unknown Organization [facility] Address [address] [place] [address] Care Team Providers Care Telephone Coin Box Collector Name Role Phone Unavailable Primary Care Provider Unavailabl e Reason for Referral * Outpatient (Routine) - Authorized Specialty Diagnoses / Procedures Referred By Contact Referred To Contact Gastroenterology and Hepatology Diagnoses Abnormal Findings On Diagnostic Imaging Of Other Abdominal Regions Including Retroperitoneum Audra Doss, C.N.P. [address] [place] [address] [facility] Referral ID Status Reason Start Date Expiration Date V isits Requested Visits Authorized [id number] Authorized 11/16/2023 05/17/2025 1 1 Encounter Details Date Type Department Care Team (Late st Contact Info) Description 11/16/2023 [facility] [address] [place] [address] Audra Doss, C.N.P. [address] [place] [phone] Abnormal Findings On Diagnostic Imaging Of Other Abdominal Regions Including Retroperitoneum (Primary Dx) Social History Tobacco Use Types Packs/Day Years [...] CDT Comprehensive Visit Division of Gastroenterology in [place], [place] [address] [place] [phone] Audra Doss C.N.P. [address] [place] [address] Sam Lee M.D. [address] [place] [phone] 12/25/2023 1:30 PM CDT Appointment Division of Gastroenterology in [place], [place] [address] [place] [phone] Calvin Bailey M.D. [address] [place] [phone] Isrrael Caruso M.D. [address] [place] [phone] 12/29/2023 9:00 AM CDT Clinical Support Department of Nutrition and Diabetes Education in [place], [place] [address] [place] [phone] Calvin Bailey M.D. [address] [place] [phone] Maricruz Ryan M.S., RDN, LD [address] [place] [phone] 01/15/2024 8:00 AM CDT Procedure visit Department of Urology in [address] [phone] Alejandra Souza P.A.-C. [address] [place] [phone] Discharge Disposition: Home or Self Care Scheduled Referrals Name Type Priority Associated Diagnoses Orde r Schedule Gastroenterology & Hepatology Referral Outpatient Referral Routine Abnormal Findings On Diagnostic Imaging Of Other Abdominal Regions Including Retroperitoneum Expected: 11/16/2023 (Approximate), Expires: 02/14/2025 documented as of this encounter Visit Diagnoses Diagnosis Abnormal Findings On Diagnostic Imaging Of Other Abdominal Regions Including Retroperitoneum- Primary documented in this encounter
--- OUTSIDE RECORDS SUMMARY | 2023-12-12 22:32 | XMS_ITS | Encounter Summary ---
Author Name Unknown Organization [facility] Address [address] [place] [address] Care Team Providers Care Personal Injury Legal Assistant Name Role Phone Unavailable Primary Care Provider Unavailabl e Encounter Details Date Type Department Care Team (Late st Contact Info) Description 12/12/2023 10:26 AM CDT Hospital Encounter Department of Laboratory Medicine and Pathology, [facility], in [place], [place] [address] [place] [phone] Calvin Bailey M.D. [address] [place] [phone] Mass Pancreas Social History Tobacco Use Types Packs/Day Years Used Date Smoking Tobacco: Never Smokeless Tobacco: Never Alcohol Use Standard Drinks/Week Comments No 0 (1 standard drink = 0.6 oz pur e alcohol) [facility] Utilities Answer Date Recorded In the past 12 months has [facility] [employer], gas, oil, or water [employer] threatened to shut off services in your [...] your living situation today? I have a [facility] place to live 11/29/2023 Sex and [...] CDT Comprehensive Visit Division of Gastroenterology in [place], [place] 200 [place] [address] Audra Doss, LashaunNHerbertP. [address] [place] [address] [place] [phone] 12/25/2023 1:30 PM CDT Appointment Division of Gastroenterology in [place], [place] 200 [place] [phone] Calvin [place] [phone] Isrrael Caruso M.D. [address] [place] [address] 12/29/2023 9:00 AM CDT Clinical Support Department of Nutrition and Diabetes Education in [place], [place] [address] [place] [phone] Calvin Bailey M.D. [address] [place] [phone] Maricruz Ryan M.S., RDN, LD [address] [place] [phone] 01/15/2024 8:00 AM CDT Procedure visit Department of Urology in [address] [phone] Alejandra Souza P.A.-C. [address] [phone] Discharge Disposition: Home or Self Care Pending Results Name Type Priority Associated Diagnoses Date /Time Cell-free DNA KRAS 12, 13, 61,146, Blood Lab Routine Mass Pancreas 12/12/2023 10:42 AM CDT Scheduled Orders Name Type Priority Associated Diagnoses Orde r Schedule Cell-free DNA KRAS 12, 13, 61,146, Blood Lab Routine Mass Pancreas Once for 1 Occurrences starting 12/12/2023 until 12/12/2023 Prealbumin (PAB) Lab Routine Mass Pancreas Once for 1 Occurrences starting 12/12/2023 until 12/12/2023 documented as of this encounter Procedures Procedure Name Priority Date/Time Associated Diagnosis Comments CARBOHYDRATE AG 19-9 (CA 19-9), S Routine 12/12/2023 10:43 AM CDT Mass Pancreas PROTHROMBIN TIME (PT), P Routine 12/12/2023 10:43 AM CDT Mass Pancreas CBC WITH DIFFERENTIAL, B Routine 12/12/2023 10:43 AM CDT Mass Pancreas HEMOGLOBIN A1C, B Routine 12/12/2023 10: 43 AM CDT Mass Pancreas BILIRUBIN DIRECT, S/P Routine 12/12/2023 10:43 AM CDT Mass Pancreas COMPREHENSIVE METABOLIC PANEL, S/P Routine 12/12/2023 10:43 AM CDT Mass Pancreas documented in this encounter Results * (ABNORMAL) Hemoglobin A1c (12/12/2023 10:43 AM CDT) Hemoglobin A1c, B 7.6(H) 4.0 - 5.6 % 12/12/2023 11:49 AM CDT DTL Comment: Hemoglobin A1c values greater than or equal to 6.5 percent are diagnostic for diabetes mellitus. ??Diagnosis should be confirmed by repeat testing. ??In diabetic patients, HbA1c goals should be discussed with healthcare provider. Blood (Blood, Venous) 12/12/2023 10:43 AM CDT 12/12/2023 11:03 AM CDT Calvin Bailey M.D. LAB BLOOD ADD-ON [address] [address], [facility] [address] [address] * (ABNORMAL) Prothrombin Time (PT) (12/12/2023 10:43 AM CDT) Prothrombin Time, P 12.6(H) 9.4 - 12.5 sec 12/12/2023 11:25 AM CDT DTL INR 1.1 0.9 - 1.1 12/12/2023 11:25 AM CDT DTL Comment: ----ADDITIONAL INFORMATION---- Standard intensity warfarin therapeutic range: 2.0 to 3.0 ?? High intensity warfarin therapeutic range: 2.5 to 3.5 Blood (Blood, Venous) 12/12/2023 10:43 AM CDT 12/12/2023 11:03 AM CDT Calvin Bailey M.D. LAB BLOOD ADD-ON Performing Organization Address City/[facility]/ZIP Co de Phone Number [facility] [address] [place] [address], [facility] [address] [place] [address] * (ABNORMAL) Carbohydrate Antigen 19-9 (CA 19-9) (12/12/2023 10:43 AM CDT) Carbohydrate Ag 19-9, S 84(H) <35 U/mL 12/12/2023 3:08 PM CDT [facility] Comment: ----ADDITIONAL INFORMATION---- The testing method is an immunoenzymatic assay manufactured by [employer]. and performed on the [employer] DxI 800. ? Values obtained with different assay methods or kits may be different and cannot be used interchangeably. ? Test results cannot be interpreted as absolute evidence for the presence or absence of malignant disease. Blood (Blood, Venous) 12/12/2023 10:43 AM CDT 12/12/2023 2:07 PM CDT Calvin Bailey M.D. LAB BLOOD ADD-ON Performing Organization Address [facility] Co de Phone Number [facility] [address] [place] [address] [facility] [address] [place] [address] * (ABNORMAL) Bilirubin, Direct (12/12/2023 10:43 AM CDT) Bilirubin, Direct, S 1.4(H) 0.0 - 0.3 mg/dL 12/12/2023 11:42 AM CDT DT Blood (Blood, Venous) 12/12/2023 10:43 AM CDT 12/12/2023 11:24 AM CDT Calvin Bailey M.D. LAB BLOOD ADD-ON [facility] [address] [place] [address], [facility] DTL [facility] [address] [place] [address] * (ABNORMAL) Comprehensive Metabolic Panel (12/12/2023 10:43 AM CDT) [facility] Potassium, S 5.1 3.6 - 5.2 mmol/L 12/12/2023 11:42 AM CDT DTL Sodium, S 136 135 - 145 mmol/L 12/12/2023 11:42 AM CDT DTL Chloride, S 100 98 - 107 mmol/L 12/12/2023 11:42 AM CDT DTL Bicarbonate, S 25 22 - 29 mmol/L 12/12/2023 11:42 AM CDT DTL Anion Gap 11 7 - 15 12/12/2023 11:42 AM CDT DTL BUN (Blood Urea Nitrogen), S 21 6 - 21 mg/dL 12/12/2023 11:42 AM CDT DTL Creatinine 0.98 0.59 - 1.04 mg/dL 12/12/2023 11:42 AM CDT DTL Estimated GFR (eGFR) 57(L) >=60 mL/min/BS A 12/12/2023 11:42 AM CDT DTL Comment: Estimated GFR calculated using the 2020 CKD_EPI creatinine equation. Calcium, Total, S 10.1 8.8 - 10.2 mg/dL 12/12/2023 11:42 AM CDT DTL Glucose, S 229(H) 70 - 140 mg/dL 12/12/2023 11:42 AM CDT DTL Protein, Total, S 7.2 6.3 - 7.9 g/dL 12/12/2023 11:42 AM CDT DTL Albumin, S 4.5 3.5 - 5.0 g/dL 12/12/2023 11:42 AM CDT DTL Aspartate Aminotransferase (AST), S 433(H) 8 - 43 U/L 12/12/2023 11:42 AM CDT DTL Alkaline Phosphatase, S 159(H) 35 - 104 U/L 12/12/2023 11:42 AM CDT DTL Alanine Aminotransferase (ALT), S 212(H) 7 - 45 U/L 12/12/2023 11:42 AM CDT DTL Bilirubin, Total, S 1.7(H) 0.0 - 1.2 mg/dL 12/12/2023 11:42 AM CDT DTL Blood (Blood, Venous) 12/12/2023 10:43 AM CDT 12/12/2023 11:24 AM CDT Calvin Bailey M.D. LAB BLOOD ADD-ON [facility] [address] [place] [address], [facility] DTAur[facility] [address] [place] [address] * (ABNORMAL) CBC with Differential, Blood (12/12/2023 10:43 AM CDT) Hemoglobin 12.1 11.6 - 15.0 g/dL 12/12/2023 11:41 AM CDT DTL Hematocrit 37.4 35.5 - 44.9 % 12/12/2023 11:41 AM CDT DTL Erythrocytes 4.02 3.92 - 5.13 x10(12)/L 12/12/2023 11:41 AM CDT DTL MCV 93.0 78.2 - 97.9 fL 12/12/2023 11:41 AM CDT DTL RBC Distrib Width 13.4 12.2 - 16.1 % 12/12/2023 11:41 AM CDT DTL Platelet Count 273 157 - 371 x10(9)/L 12/12/2023 11:41 AM CDT DTL Leukocytes 10.6(H) 3.4 - 9.6 x10(9)/L 12/12/2023 11:41 AM CDT DTL Neutrophils 8.23(H) 1.56 - 6.45 x10(9)/L 12/12/2023 11:40 AM CDT DHPM Lymphocytes 1.19 0.95 - 3.07 x10(9)/L 12/12/2023 11:41 AM CDT DTL Monocytes 0.84(H) 0.26 - 0.81 x10(9)/L 12/12/2023 11:41 AM CDT DTL Eosinophils 0.26 0.03 - 0.48 x10(9)/L 12/12/2023 11:41 AM CDT DTL Basophils 0.07 0.01 - 0.08 x10(9)/L 12/12/2023 11:41 AM CDT DTL Blood (Blood, Venous) 12/12/2023 10:43 AM CDT 12/12/2023 11:03 AM CDT Calvin Bailey M.D. LAB BLOOD ADD-ON [facility] [address] [place] [address], [facility] DTL [facility] [address] [place] [address] [facility] [address] [place] [address] documented in this encounter Visit Diagnoses Diagnosis Mass Pancreas documented in this encounter
--- OUTSIDE RECORDS SUMMARY | 2023-12-12 22:32 | XMS_ITS | Encounter Summary ---
Author Name Unknown Organization [facility] Address [address] [place] [address] Care Team Providers Care Manager Cafe Name Role Phone Unavailable Primary Care Provider Unavailabl e Reason for Referral * Outpatient (Routine) - Authorized Specialty Diagnoses / Procedures Referred By Contac t Referred To Contact Diagnoses Mass Pancreas Procedures ERCP Calvin Bailey M.D. 200 [place] [address] [facility] Referral ID Status Reason Start Date Expiration Date V isits Requested Visits Authorized [id number] Authorized 11/30/2023 11/29/2024 1 1 * Outpatient (Routine) - Authorized Specialty Diagnoses / Procedures Referred By Contac t Referred To Contact Diagnoses Mass Pancreas Procedures Endoscopic ultrasound (EUS) [place] [address] [facility] Referral ID Status Reason Start Date Expiration Date V isits Requested Visits Authorized [id number] Authorized 11/30/2023 11/29/2024 1 1 * Outpatient (Routine) - Authorized Specialty Diagnoses / Procedures Referred By Contac t Referred To Contact Nutrition Diagnoses Mass Pancreas [place] [address] [facility] Referral ID Status Reason Start Date Expiration Date V isits Requested Visits Authorized [id number] Authorized 11/30/2023 05/31/2025 1 1 * MRI/CAT/PET Scan (Routine) - Closed Specialty Diagnoses / Procedures Referred By Contac t Referred To Contact Radiology Diagnoses Mass Pancreas Procedures CT Pancreas Angiogram Triple Phase and Pelvis with IV Contrast Calvin Bailey M.D. [address] [place] [address] [facility] Referral ID Status Reason Start Date Expiration Date Visits Re quested Visits Authorized [id number] Closed 11/30/2023 11/29/2024 1 1 Encounter Details Date Type Department Care Team (Latest Contact Info) Description 11/30/2023 9:20 AM CDT Telemedicine Division of Gastroenterology in [place], [place] [address] [place] [address] Deyanira García R.N. [address] [place] [phone] Mass Pancreas (Primary Dx) Social History Tobacco Use Types Packs/Day Years Used Date Smoking Tobacco: Never Smokeless Tobacco: Never Alcohol Use Standard Drinks/Week Comments No 0 (1 standard drink = 0.6 oz pur e alcohol) [facility] Utilities Answer Date Recorded In the past 12 months has [employer], gas, oil, or water [employer] threatened to shut off services in your [...] your living situation today? I have a [facility] place to live 11/29/2023 Sex and Gender Information Value Date Recorded Sex Assigned at Female 11/29/2023 7:47 PM CDT Gender Identity Female 11/29/2023 7:47 PM CDT Sexual Orientation Straight 11/29/2023 7: 47 PM CDT documented as of this encounter H&P Notes * Deyanira García R.N. - 11/30/2023 9:20 AM CDT Reason for Visit Gastroenterology and Hepatology: Pancreas Clinic RN Pre-Visit. Patient contacted [facility] requesting on-campus appointment; pre-visit was scheduled following that request. Completed administrative pre-visit discussion to better understand patient goals and the needed patient itinerary for the requested on-site visit. This pre-visit does not establish a long-term relationship. This interview occurred via real-time audio/video technology by Deyanira García R.N. at [facility] to the patient in the patient's home. The information below is based on review of available medical records and a virtual conversation with the patient and her daughters Radha and Antonia. History of Present Illness Ms. Graham is a 83 y.o. female who is being interviewed for a pre-visit encounter. Our records indicate that Ms. Graham was referred to [facility] for concern of a pancreatic mass, asevidenced by abnormal CT imaging. I had the opportunity to talk to Ms. Graham and her daughters, Radha and Antonia, in regards to her recent medical history. Daughters shared that within the last few months, Charla has been more lethargic and they reported she had lost approximately 20 lb in the last three months. This prompted them to take her to her primary care provider to be evaluated. Upon evaluation, her liver labs were elevated. Alkaline phosphatase 353, AST 53, ALT 76. This prompted imaging by CT Chest Abdomen Pelvis. The imaging from 11/13/2023 showed dilated biliary tree with cutoff of the common bile duct at the pancreatic head and atrophy of the pancreatic body and tail. Occult pancreatic adenocarcinoma should be excluded. Recommend MRI pancreas/MRCP. Her local provider referred her to be evaluated here. Up untilthis point no MRCP or biopsy has been completed. Daughter's want to know if this is cancer, howeverthey are concerned about any sort of invasive procedure taking place. Shared with patient and daughters that meeting with the doctor would take place before any invasive procedures. These conversations can be had with the physician prior to making any sort of decision but we will plan to schedule the appointment in case they want to go through with the EUS to confirm diagnosis. The patient states goals for this visit are to find out if this is cancer, while maintaining the least invasive measures for the comfort of Ms. Graham. Current symptoms: - Abdominal pain: intermittent, none recently - Indigestion: denies - Back Pain: low back aches - Stool changes to pattern/consistency: at times she had diarrhea, now seems to be regular, daily BM's - Weight loss: 20 lbs in 3 months - Jaundice: denies Imaging: Requested? yes Received? yes 11/13/23 CT chest, abdomen, and pelvis Impression: 1. Dilated biliary tree with cutoff of the common bile duct at the pancreatic head and atrophy of the pancreatic body and tail. Occult pancreatic adenocarcinoma should be excluded. Recommend MRI pancreas/MRCP. 2. Ductal indeterminate 1 cm right adrenal nodule. 3. Possible hepatic cirrhosis. Prior procedures within 18 months: none Labs: 11/02/23 Alkaline Phosphatase: 353* AST: 53* ALT: 76* Bilirubin: 0.7 Ca 19-9: no value History of any renal impairment: Hx of stones. 10/09/23 Creatinine: 0.6mg/dL; eGFR 88. Past medical history: Recurrent UTI, hematuria(seeing Urology here), type 2 diabetes, orthostatic hypotension, anemia, left sciatic nerve pain, diarrhea, cardiac murmur, hyperlipidemia, elevated liver enzymes, hemorrhoids, stroke Prior abdominal surgery or weight loss surgery: Partial Nephrectomy, many years ago Personal history of pancreaticobiliary benign or malignant disease (y/n) and if so, please list: Yes, Type 2 DM, oral medications, no insulin, checks BS 5 times per day- have been stable per daughters Use of blood thinners: Plavix 75mg PO Qday How long: aprx 1 year Indication: stroke Who manages: Audra Doss APRN Instructions provided to patient to speak with their provider and 1) inquire if they approve of holding anticoagulation if EUS or other endoscopic procedure is recommended and 2) acquire a plan for holding and resuming anticoagulation, as needed, for procedure. Severe cardiac or pulmonary disease (Pacemaker?): Recent stroke Does the patient have any devices, implants, or injuries involving metal? External blood sugar monitor on the upper arm Claustrophobia/contraindications to imaging: denies Patient information will be shared with the pancreas care team to determine a plan for the patient.Patient informed we may contact their prior care facilities to obtain further records for their diagnosis and past history, specifically pathology reports and biopsy slides, CT's, and/or MRI images. Informed patient that following discussion of a plan our scheduling team will contact her within approximately one week to discuss appointment scheduling. Patient to continue to direct health-related questions to local care provider until seen for consultation appointment. The following information also shared with the patient: Pancreas Scheduling Team [phone]. documented in this encounter Plan of Treatment Upcoming Encounters Date Type Department Care Team (Latest Contact Info) Description 12/13/2023 9:20 AM CDT Comprehensive Visit Division of Gastroenterology in [place], [place] [address] [place] [address] Audra Doss C.N.P. [address] [place] [address] Sam Lee M.D. [address] [place] [phone] 12/25/2023 1:30 PM CDT Appointment Division of Gastroenterology in [place], [place] [address] [place] [phone] Calvin Bailey M.D. [address] [place] [phone] Isrrael Caruso M.D. [address] [place] [phone] 12/29/2023 9:00 AM CDT Clinical Support Department of Nutrition and Diabetes Education in [place], [place] [address] [place] [phone] Calvin Bailey M.D. [address] [place] [phone] Maricruz Ryan M.S., RDN, LD [address] [place] [phone] 01/15/2024 8:00 AM CDT Procedure visit Department of Urology in [address] [phone] Alejandra Souza P.A.-C. [address] [phone] Discharge Disposition: Home or Self Care Pending Results Name Type Priority Associated Diagnoses Date /Time Cell-free DNA KRAS 12, 13, 61,146, Blood Lab Routine Mass Pancreas 12/12/2023 10:42 AM CDT Scheduled Orders Name Type Priority Associated Diagnoses Orde r Schedule Cell-free DNA KRAS 12, 13, 61,146, Blood Lab Routine Mass Pancreas Expected: 11/30/2023, Expires: 02/28/2025 Prealbumin (PAB) Lab Routine Mass Pancreas Expected: 11/30/2023, Expires: 02/28/2025 Endoscopic ultrasound (EUS) GI Routine Mass Pancreas Expected: 11/30/2023, Expires: 02/28/2025 ERCP GI Routine Mass Pancreas Expected: 11/30/2023, Expires: 02/28/2025 Scheduled Referrals Name Type Priority Associated Diagnoses Order Schedule Nutrition - Gastroenterology medical nutrition therapy consult (clinic) Outpatient Referral Routine Mass Pancreas 1 Occurrences starting 11/30/2023 until 02/28/2025 documented as of this encounter Results * CT Pancreas Angiogram [...] be required to more definitively assess. Calvin Bailey M.D. IMG CT PROCEDURES * (ABNORMAL) Hemoglobin A1c (12/12/2023 10:43 AM [...] CDT Calvin Bailey M.D. LAB BLOOD ADD-ON [facility] [address] [place], [place] [phone] [place] [address] DTL [facility] [address] [place] [address] * (ABNORMAL) Prothrombin Time (PT) (12/12/2023 10:43 [...] M.D. LAB BLOOD ADD-ON Performing Organization Address [facility] Co de Phone Number [facility] [address] [place] [address], [facility]TM[facility] [address] [place] [address] * (ABNORMAL) Carbohydrate Antigen 19-9 (CA 19-9) (12/12/2023 10:43 AM CDT) Carbohydrate Ag 19-9, S 84(H) <35 U/mL 12/12/2023 3:08 PM CDT [facility] Comment: ----ADDITIONAL INFORMATION---- The testing method is an immunoenzymatic assay manufactured by [employer]. and performed on the [employer] DxI 800. ? Values obtained with different assay methods or kits may be different and cannot be used interchangeably. ? Test results cannot be interpreted as absolute evidence for the presence or absence of malignant disease. Blood (Blood, Venous) 12/12/2023 10:43 AM CDT 12/12/2023 2:07 PM CDT Calvin Bailey M.D. LAB BLOOD ADD-ON Performing Organization Address City/[facility]/ZIP Co de Phone Number [facility] [address] [place] [address] [facility] [address] [place] [address] * (ABNORMAL) Bilirubin, Direct (12/12/2023 10:43 AM CDT) Bilirubin, Direct, S 1.4(H) 0.0 - 0.3 mg/dL 12/12/2023 11:42 AM CDT DT Blood (Blood, Venous) 12/12/2023 10:43 AM CDT 12/12/2023 11:24 AM CDT Calvin Bailey M.D. LAB BLOOD ADD-ON [facility] [address] [place] [address], [facility] [address] [place] [address] * (ABNORMAL) Comprehensive Metabolic Panel (12/12/2023 10:43 AM CDT) [facility] Potassium, S 5.1 3.6 - 5.2 mmol/L [...] CDT Calvin Bailey M.D. LAB BLOOD ADD-ON [facility] [address] [place] [address], [facility] [place] [address] [place] [address] * (ABNORMAL) CBC with Differential, Blood (12/12/2023 10:43 AM CDT) Pathologist [facility] Hemoglobin 12.1 11.6 - 15.0 g/dL 12/12/2023 [...] CDT Calvin Bailey M.D. LAB BLOOD ADD-ON [facility] [address] [place] [address], [facility] DTL [facility] [address] [place] [address] DHPM [facility] [address] [place] [address] documented in this encounter Visit Diagnoses Diagnosis Mass Pancreas- Primary Mass Pancreas documented in this encounter
--- OUTSIDE RECORDS SUMMARY | 2023-12-12 22:32 | XMS_ITS | Encounter Summary ---
Author Name Unknown Organization [facility] Address [address] [place] [address] Care Team Providers Care Automatic Drill Operator Name Role Phone Unavailable Primary Care Provider Unavailabl e Reason for Referral * Outpatient (Routine) - Closed Specialty Diagnoses / Procedures Referred By Gary t Referred To Contact Urology Diagnoses Urinary Tract Infection (UTI)/Bacteriuria NOS Audra Doss, C.N.P. [address] [place] [phone] [facility] Region Referral ID Status Reason Start Date Expiration Date Visits Re quested Visits Authorized [id number] Closed 10/17/2023 04/17/2025 1 1 RMATION RECEPTIONIST Encounter Details Date Type Department Care Team (Late st Contact Info) Description 10/17/2023 [facility] [address] [place] [address] Audra Doss, C.N.P. [address] [place] [phone] Urinary Tract Infection (UTI)/Bacteriuria NOS (Primary Dx) Social History Tobacco Use Types [...] CDT Comprehensive Visit Division of Gastroenterology in [place], [place] [address] [place] [phone] Audra Doss C.NMj [address] [place] [phone] Sam Lee M.D. [address] [place] [phone] 12/25/2023 1:30 PM CDT Appointment Division of Gastroenterology in [place], [place] [address] [place] [phone] Calvin Bailey M.D. [address] [place] [phone] Isrrael Caruso M.D. [address] [place] [phone] 12/29/2023 9:00 AM CDT Clinical Support Department of Nutrition and Diabetes Education in [place], [place] [address] [place] [phone] Calvin Bailey M.D. [address] [place] [phone] Maricruz Ryan M.S., RDN, LD [address] [place] [phone] 01/15/2024 8:00 AM CDT Procedure visit Department of Urology in [address] [phone] Alejandra Souza P.A.-C. [address] [place] [phone] Discharge Disposition: Home or Self Care Scheduled Referrals Name Type Priority Associated Diagnoses Orde r Schedule Urology Referral Outpatient Referral Routine Urinary Tract Infection (UTI)/Bacteriuria NOS Expected: 10/17/2023 (Approximate), Expires: 01/16/2025 documented as of this encounter Visit Diagnoses Diagnosis Urinary Tract Infection (UTI)/Bacteriuria NOS- Primary documented in this encounter
--- OUTSIDE RECORDS SUMMARY | 2023-12-12 22:32 | XMS_ITS | Encounter Summary ---
Author Name Unknown Organization [facility] Address [address] [place] [address] Care Team Providers Care Banking Manager Name Role Phone Unavailable Primary Care Provider Unavailabl e Encounter Details Date Type Department Care Team (Latest Contact Info) Description 10/02/2023 Clinical Communication Department of Ophthalmology in [address] [phone] Mauri Farrell M.D. [address] [place] [phone] Social History Tobacco Use Types Packs/Day Years [...] CDT Comprehensive Visit Division of Gastroenterology in [place], [place] [address] [place] [phone] Audra Doss C.N.P. [address] [place] [phone] Sam Lee M.D. [address] [place] [phone] 12/25/2023 1:30 PM CDT Appointment Division of Gastroenterology in [place], [place] [address] [place] [phone] Calvin Bailey M.D. [address] [place] [phone] Isrrael Caruso M.D. [address] [place] [phone] 12/29/2023 9:00 AM CDT Clinical Support Department of Nutrition and Diabetes Education in [place], [place] [address] [place] [phone] Calvin Bailey M.D. [address] [place] [phone] Maricruz Ryan M.SHerbert, RDN, LD [address] [place] [phone] 01/15/2024 8:00 AM CDT Procedure visit Department of Urology in [address] [phone] Alejandra Souza P.A.-C. [address] [phone] Discharge Disposition: Home or Self Care documented as of this encounter Visit Diagnoses Not on filedocumented in this encounter
--- OUTSIDE RECORDS SUMMARY | 2023-12-12 22:32 | XMS_ITS | Encounter Summary ---
Author Name Unknown Organization [facility] Address [address] [place] [address] Care Team Providers Care Clinical Supervisor Name Role Phone Unavailable Primary Care Provider Unavailabl e Encounter Details Date Type Department Care Team ( Contact Info) Description 10/19/2023 Orders Only Department of Urology in [address] [phone] Alejandra Souza, P.A.-C. [address] [phone] Social History Tobacco Use Types Packs/Day Years [...] CDT Comprehensive Visit Division of Gastroenterology in [place], [place] [address] [place] [phone] Audra Doss C.N.P. [address] [place] [phone] Sam Lee M.D. [address] [place] [phone] 12/25/2023 1:30 PM CDT Appointment Division of Gastroenterology in [place], [place] [address] [place] [phone] Calvin Bailey M.D. [address] [place] [phone] Isrrael Caruso M.D. [address] [place] [phone] 12/29/2023 9:00 AM CDT Clinical Support Department of Nutrition and Diabetes Education in [place], [place] [address] [place] [phone] Calvin Bailey M.D. [address] [place] [phone] Maricruz Ryan M.SHerbert, RDN, LD [address] [place] [phone] 01/15/2024 8:00 AM CDT Procedure visit Department of Urology in [address] [phone] Alejandra Souza P.AHerbert-Papi. [address] [place] [phone] Discharge Disposition: Home or Self Care documented as of this encounter Visit Diagnoses Not on filedocumented in this encounter
--- OUTSIDE RECORDS SUMMARY | 2023-12-12 22:32 | XMS_ITS | Clinical Summary ---
Author Name Unknown Organization [facility] Address [address] [place] [address] Care Team Providers Care Educational Program Director Name Role Phone Unavailable Primary Care Provider Unavailabl e Source Comments Patient records contain information from all sites at [facility]. For routine questions regarding patient records, call [phone] during business hours, M-F 8:00 AM - 5:00 PM Central Time. Record requests for emergency care only can be directed to [phone] at any time.[facility] Allergies Active Allergy Reactions Criticality Noted Date Comments Ampicillin Itching Medium 10/28/2014 Sulfamethoxazole-Trimethoprim Rash 2021 Tramadol Itching Medium 11/06/2012 Medications Medication Sig Dispensed Refills Start Date End Date Status glipiZIDE (GLUCOTROL) 10 mg tablet Take 10 mg by mouth. 10/20/2017 Acti ve ubiquinone (COENZYME Q10) 100 mg tablet Take by mouth. 07/02/2013 Ac tive OMEGA-3 FATTY ACIDS-EPA ORAL Take 1 capsule by mouth. 06/06/2012 Active ketorolac (ACULAR) 0.5 % ophthalmic solution Administer 1 drop into the left eye 4 (four) times a day. Start 2 days piror to surgery and use until empty 5 mL 1 06/11/2018 Active ketorolac (ACULAR) 0.5 % ophthalmic solution Administer 1 drop into the right eye 4 (four) times a day. Start 2 days piror to surgery and use until empty 5 mL 1 06/02/2018 Active prednisoLONE acetate (PRED FORTE) 1 % ophthalmic suspension Administer 1 drop into the right eye 4 (four) times a day. Start 2 days prior to surgery and use for at least 30 days 10 mL 06/11/2018 Active prednisoLONE acetate (PRED FORTE) 1 % ophthalmic suspension Administer 1 drop into the left eye 4 (four) times a day. Start 2 days prior to surgery and use for 30 days following. 10 mL 1 06/11/2018 Active moxifloxacin (VIGAMOX) 0.5 % ophthalmic solution Administer 1 drop into the left eye 4 (four) times a day. Start 2 days prior to surgery. Use until bottle is empty 3 mL 1 06/11/2018 Active moxifloxacin (VIGAMOX) 0.5 % ophthalmic solution Administer 1 drop into the right eye 4 (four) times a day. Start 2 days prior to surgery and use until empty 3 mL 1 06/02/2018 Active metFORMIN (GLUCOPHAGE) 500 mg tablet Take 500 mg by mouth. 05/14/2018 Active pravastatin (PRAVACHOL) 20 mg tablet Take 20 mg by mouth. 05/29/2018 Acti ve acetaminophen (TYLENOL) 325 mg tablet Take 650 mg by mouth every 6 (six) hours. 01/20/[address] tablet Take 1 tablet by mouth daily. 01/06/2023 Active atorvastatin (LIPITOR) 20 mg tablet Take 1 tablet by mouth daily with dinner. 01/05/2023 Active blood sugar diagnostic strips (Contour Next Test Strips) Dispense item covered by pt ins.TEST 3 TIMES DAILY. 02/24/2021 Active clopidogreL (PLAVIX) 75 mg tablet Take 1 tablet by mouth daily. 01/05/2023 Active nitrofurantoin (MACRODANTIN) 50 mg capsule Take 50 mg by mouth daily. Active sennosides-docusate sodium (SENOKOT-S) 8.6-50 mg per tablet Take 1-4 tablets by mouth. 01/20/2023 Active glipiZIDE (GLUCOTROL) 5 mg tablet Take 5 mg by mouth. 10/08/2021 Activ e estradioL (Estrace) 0.1 mg/g (0.01%) vaginal cream by other route. 09/22/2022 Active flash glucose sensor (FREESTYLE BARBIE) kit by other route. 08/25/2022 Active blood-glucose sensor (FreeStyle Barbie 3 Sensor) device by other route. 08/25/2022 Activ e flash glucose scanning reader (FreeStyle Barbie 14 Day Swink) by other route. 08/25/2022 Active estradioL (ESTRACE) 0.1 mg/g (0.01%) vaginal cream Apply dime-sized amount to the external urethra 3 nights weekly. No need for vaginal applicator or insertion 42.5 g 5 10/18/2023 Active B complex-vitamin (SUPER B-50) capsule Take 1 tablet by mouth. 11/02/2023 Active cholecalciferol (REPLESTA) 1,250 mcg (50,000 unit) wafer Take 1,000 Units by mouth. 01/30/2023 Active aspirin 81 mg capsule Take 81 mg by mouth. 03/16/2023 Acti ve blood-glucose sensor (FreeStyle Barbie 3 Sensor) device by other route. 08/25/2022 Activ e estradioL (ESTRING) 2 mg (7.5 mcg /24 hour) vaginal ring by other route. 11/06/2023 A ctive A LIPOIC [id number] E ORAL Take by mouth daily. 11/02/2023 Acti ve clopidogreL (Plavix) 75 mg tablet Take 75 mg by mouth. 01/28/2023 Ac tive flash glucose scanning reader (FREESTYLE BARBIE) by other route. 08/25/2022 Ac tive flash glucose sensor (FREESTYLE BARBIE) kit by other route. 04/25/2023 Active nitrofurantoin (MACRODANTIN) 25 mg capsule Take 50 mg by mouth. 09/08/2023 Acti ve triamcinolone (KENALOG) 0.025 % cream Apply topically. 11/02/2023 Active d-mannose 500 mg capsule Take by mouth. 11/02/2023 Active Active Problems Problem Noted Date Diagnosed Date Diabetes Mellitus Type 2 Without Complication Cataract Senile Nuclear Sclerosis Right 04/20/20 18 Overview: Added automatically from request for surgery [id number] Cataract Senile Nuclear Sclerosis Left 8 Overview: Added automatically from request for surgery [id number] Encounters Date Type Department Care Team Description 12/12/2023 2:30 PM CDT Clinical Communication Virtual Review in [address] [phone] Pre-visit Intake 12/12/2023 11:34 AM CDT Hospital Encounter Department of Radiology, [facility], in [place], [place] [address] [place] [phone] Calvin Bailey M.D. Mass Pancreas 12/12/2023 10:26 AM CDT Hospital Encounter Department of Laboratory Medicine and Pathology, [facility], in [place], [place] [address] [place] [phone] Calvin Bailey M.D. Mass Pancreas 12/12/2023 Clinical Communication Division of Gastroenterology in [place], [place] [address] [place] [phone] Prescheduling, Provider 12/04/2023 Patient Outreach Department of Oncology in [address] [phone] Dariela Palmer, RRafal 11/30/2023 9:20 AM CDT Telemedicine Division of Gastroenterology in [address] [phone] Deyanira García, RRafal Mass Pancreas (Primary Dx) 11/29/2023 10:00 AM CDT Clinical Communication Virtual Review in [place], [place] 200 [place] [address] Pre-visit Intake 11/23/2023 Clinical Communication Division of Gastroenterology in [address] [phone] Provider, Unknown Pre-visit Intake; [facility] ([facility]/) 11/16/2023 [facility] [address] [place] [address] Audra Doss, C.N.P. Abnormal Findings On Diagnostic Imaging Of Other Abdominal Regions Including Retroperitoneum (Primary Dx) 11/03/2023 Clinical Communication Department of Urology in [address] [phone] Alejandra Souza, Bianca.-C. Communication 10/19/2023 Orders Only Department of Urology in [address] [phone] Alejandra Souza P.A.-C. 10/18/2023 2:30 PM MECHANICAL PROCESS ENGINEER Comprehensive Visit Department of Urology in [address] [phone] Alejandra Souza P.A.-C. Cystitis Recurrent (Primary Dx); Urinary Tract Infection Site Not Specified; Dysfunction Voiding Discharge Disposition: Home or Self Care 10/17/2023 [facility] [address] [place] [address] Audra Doss C.NHerbertPHerbert Urinary Tract Infection (UTI)/Bacteriuria NOS (Primary Dx) 10/02/2023 Clinical Communication Department of Ophthalmology in [address] [phone] Mauri Farrell M.D. from Last 3 Months Family History Medical [...] drink = 0.6 oz pur e alcohol) [facility] [employer] Answer Date Recorded In the past 12 months has [employer], gas, oil, or water [employer] threatened to shut off services in your [...] your living situation today? I have a [facility] place to live 11/29/2023 Sex and Gender Information Value Date Recorded Sex Assigned at Female 11/29/2023 7:47 PM CDT Gender Identity Female 11/29/2023 7:47 PM CDT Sexual Orientation Straight 11/29/2023 7: 47 PM CDT Last Filed Vital Signs Vital Sign Reading Time Taken Comments Blood Pressure 128/109 06/13/2018 12:30 PM CDT Pulse 73 06/13/2018 12:40 PM CDT Temperature 36.5 ??C (97.7 ??F) 06/13/2018 10:00 AM C DT Respiratory Rate 16 06/13/2018 10:00 AM CDT Oxygen Saturation 96% 06/13/2018 12:40 PM CDT Inhaled Oxygen Concentration - - Weight - - Height 155.7 cm (5' 1.3) 06/13/2018 10:00 AM CD T Body Mass Index - - Plan of Treatment Upcoming Encounters Date Type Department Care Team (Latest Contact Info) Description 12/13/2023 9:20 AM CDT Comprehensive Visit Division of Gastroenterology in [place], [place] [address] Audra Doss, CHerbertN.P. [address] [place] [phone] [place] [address] 12/25/2023 1:30 PM CDT Appointment Division of Gastroenterology in [place], [place] [address] [place] [address] Calvin Bailey M.D. [address] [place] [phone] Isrrael Caruso M.D. [address] [place] [phone] 12/29/2023 9:00 AM CDT Clinical Support Department of Nutrition and Diabetes Education in [place], [place] [address] [place] [address] Calvin Bailey M.D. [address] [place] [phone] Maricruz Ryan M.S., RDN, LD [address] [place] [phone] 01/15/2024 8:00 AM CDT Procedure visit Department of Urology in [address] [phone] Alejandra Souza, MassielAHerbert-C. [address] [phone] Discharge Disposition: Home or Self Care Health Maintenance Due Date Last Done Comments Diabetic Office Visit with F oot Exam 1940 Office Visit for Blood Press ure Check / Re-check 1938 Urine Albumin 1938 Pneumococcal vaccine (65+ ye ars) (1 of 2 - PCV) 1944 DTaP,Tdap,and Td Vaccines (1 - Tdap) 1957 Zoster Vaccines (1 of 2) 1988 Hepatitis B Vaccines (1 of 3 - Risk 3-dose series) 1998 Dilated Eye Exam 07/06/2021 07/06/2020, 12/2018, 12/21/2018, Additional history exists COVID-19 Vaccine ( - 2022-2 4 season) 2023 Influenza Vaccine (#1) 2023 Depression Screening (Annual PHQ-2) 08/14/2023 Fall Risk Screen (Annual) 08/14/2023 Hemoglobin A1C 06/12/2024 12/12/2023, 06/2 04/2022, 05/14/2018 Creatinine Level (Kidney Fun ction Test) 12/11/2024 12/12/2023, 01/19/2023, 01/05/2023, Additional history exists Medical Devices Implanted Type Area Spout Positioner Device Identifier Shelf Expiration Date Model / Serial / Lot Hip Implant Hip Implant Bilater al: Hip Lens Tcn [id number] +25.0d - [id number] - [id number] Implanted:Qty : 1 on 06/04/2018 by Mauri Farrell M.D. at [facility] Ocular Lens [employer] (Previously ALONDRA) [id number] / [id number] / Lens Tcn [id number] Ant +26.0d - [id number] - [id number] Implanted:Qty : 1 on 06/13/2018 by Mauri Farrell M.D. at [facility] Ocular Lens Left: Eye [employer] (Previously ALONDRA) [id number] 12/07/2021 [id number] / [id number] / Procedures Procedure Name Priority Date/Time Associated Diagnosis Comments CT PANCREAS ANGIOGRAM TRIPLE PHASE AND PELVIS WITH IV CONTRAST RAD - Routine (most inpatients and all outpatients) 12/12/2023 12:45 PM CDT Mass Pancreas HEMOGLOBIN A1C, B Routine 12/12/2023 10: 43 AM CDT Mass Pancreas PROTHROMBIN TIME (PT), P Routine 12/12/2023 10:43 AM CDT Mass Pancreas CARBOHYDRATE AG 19-9 (CA 19-9), S Routine 12/12/2023 10:43 AM CDT Mass Pancreas BILIRUBIN DIRECT, S/P Routine 12/12/2023 10:43 AM CDT Mass Pancreas COMPREHENSIVE METABOLIC PANEL, S/P Routine 12/12/2023 10:43 AM CDT Mass Pancreas CBC WITH DIFFERENTIAL, B Routine 12/12/2023 10:43 AM CDT Mass Pancreas OUTSIDE CT BODY Routine 11/13/2023 11:20 AM CDT CYTOLOGY NON-COTTON CHOPPER Routine 10/18/2023 4:12 PM MECHANICAL PROCESS ENGINEER Cystitis Recurrent URINALYSIS WITH MICROSCOPIC Routine 10/18/2023 4:11 PM MECHANICAL PROCESS ENGINEER Cystitis Recurrent BACTERIAL CULTURE, AEROBIC + SUSC, URINE Routine 10/18/2023 4:11 PM MECHANICAL PROCESS ENGINEER Cystitis Recurrent from Last 3 Months Results * CT Pancreas Angiogram Triple Phase [...] to more definitively assess. Calvin Bailey M.D. [facility] [place] PROCEDURES * (ABNORMAL) Carbohydrate Antigen 19-9 (CA 19-9) (12/12/2023 10:43 AM CDT) Carbohydrate Ag 19-9, S 84(H) <35 U/mL 12/12/2023 3:08 PM CDT [facility] Comment: ----ADDITIONAL INFORMATION---- The testing method is an immunoenzymatic assay manufactured by [employer]. and performed on the InVenture[employer] 800. ? Values obtained with different assay methods or kits may be different and cannot be used interchangeably. ? Test results cannot be interpreted as absolute evidence for the presence or absence of malignant disease. Blood (Blood, Venous) 12/12/2023 10:43 AM CDT 12/12/2023 2:07 PM CDT Calvin Bailey M.D. LAB BLOOD ADD-ON [facility] [address] [place] [address] [facility] [address] [place] [address] * (ABNORMAL) Prothrombin Time (PT) (12/12/2023 10:43 [...] CDT Calvin Bailey M.D. LAB BLOOD ADD-ON [facility] [address] [place] [address], [facility] [address] [place] [address] * (ABNORMAL) CBC with Differential, Blood (12/12/2023 [...] CDT Calvin Bailey M.D. LAB BLOOD ADD-ON [facility] [address] [place] [address], [facility] [address] [place] [address] [facility] [address] [place] [address] * (ABNORMAL) Hemoglobin A1c (12/12/2023 10:43 AM [...] M.D. LAB BLOOD ADD-ON Performing Organization Address [facility] Co de Phone Number [facility] [address] [place] [address] * (ABNORMAL) Bilirubin, Direct (12/12/2023 10:43 AM CDT) Bilirubin, Direct, S 1.4(H) 0.0 - 0.3 mg/dL 12/12/2023 11:42 AM CDT DTL Blood (Blood, Venous) 12/12/2023 10:43 AM CDT 12/12/2023 11:24 AM CDT Calvin Bailey M.D. LAB BLOOD ADD-ON Performing Organization Address [facility] Co de Phone Number [facility] [address] [place] [address] * (ABNORMAL) Comprehensive Metabolic Panel (12/12/2023 10:43 AM CDT) Potassium, S 5.1 3.6 - 5.2 mmol/L [...] CDT Calvin Bailey M.D. LAB BLOOD ADD-ON [facility] [address] [place] [address], [facility] DTL [facility] [address] [place] [address] * CT chest abdomen pelv w con-Outside CT Body (11/13/2023 11:20 AM CDT) Narrative IIMS - 11/16/2023 2:59 PM CDT This order has been created and auto-finalized to support the import of outside images. If available, original interpretation can be found on the Media Tab in Chart Review, in Document Viewer, or as an image in QREADS. If a re-interpretation or overread is required please follow defined workflow. ?? Provider Not In System IMG CT PROCEDURES IIMS NA * Cytology Non-COTTON CHOPPER (10/18/2023 4:12 PM MECHANICAL PROCESS ENGINEER) 10/20/2023 10:42 AM MECHANICAL PROCESS ENGINEER ECLR Fixative n/a 10/20/2023 10:42 AM MECHANICAL PROCESS ENGINEER ECLR Report electronically signed by Romie Moran M.D. I verify that I have examined all relevant slides/material s for the specimen(s) and rendered or confirmed the diagnosis. 10/20/2023 10:42 AM MECHANICAL PROCESS ENGINEER ECLR Gross Description Received 40 cc of cloudy yellow fluid without fixative. 10/20/2023 10:42 AM MECHANICAL PROCESS ENGINEER ECLR Collection Procedure Straight cath 10/20/2023 10:42 AM MECHANICAL PROCESS ENGINEER ECLR Source A. Urine, straight, catheterized 10/20/2023 10:42 AM MECHANICAL PROCESS ENGINEER ECLR Clinical History recurrent UTIs 03/2024 10:42 AM MECHANICAL PROCESS ENGINEER ECLR Interpretation A. Urine, straight, catheterized (cytospin): Negative for High-Grade Urothelial Carcinoma. Crystals present. 10/20/2023 10:42 AM MECHANICAL PROCESS ENGINEER ECLR Urine 10/18/2023 4:12 PM MECHANICAL PROCESS ENGINEER 10/19/2023 1:48 PM MECHANICAL PROCESS ENGINEER Alejandra Souza P.A.-C. LAB SURG PATH OR DERABLES [facility] [address] [place] [address], [facility] ECLR [address] [place] [phone] * Bacterial Culture, Aerobic + Susceptibility, Urine (10/18/2023 4:11 PM MECHANICAL PROCESS ENGINEER) Urine Culture No growth after 1 day of incubation. 10/19/2023 3:19 PM MECHANICAL PROCESS ENGINEER ECLR Urine (Urine, Straight Catheter) 10/18/2023 4:11 PM MECHANICAL PROCESS ENGINEER 10/18/2023 8:40 PM MECHANICAL PROCESS ENGINEER Comment:Specimen Source Site : Urine Alejandra Souza P.A.-C. LAB MICROBIOLOGY - GENERAL ORDERABLES [facility] [address] [place] [address], [facility] ECLR [facility] in [address] [address] * (ABNORMAL) Urinalysis, with Microscopic: Urine, Straight Catheter (10/18/2023 4:11 PM MECHANICAL PROCESS ENGINEER) Source Urine, Urine, Straight Catheter 10/18/2023 4:39 PM MECHANICAL PROCESS ENGINEER RDWG Clarity Cloudy(A) Clear 10/18/2023 4:39 PM MECHANICAL PROCESS ENGINEER RDWG Color [place] 10/18/2023 4:39 PM MECHANICAL PROCESS ENGINEER RDWG Comment: ----REFERENCE VALUE---- Colorless Yellow [place] Blood Negative Negative 10/18/2023 4:39 PM MECHANICAL PROCESS ENGINEER RDWG Nitrite Negative Negative 10/18/2023 4:39 PM MECHANICAL PROCESS ENGINEER RDWG Leukocyte Esterase Negative Negative 10/18/2023 4:39 PM MECHANICAL PROCESS ENGINEER RDWG Protein 30(A) mg/dL 10/18/2023 4:39 PM MECHANICAL PROCESS ENGINEER RDWG Comment: ----REFERENCE VALUE---- Negative Trace Glucose 250(A) Negative mg/dL 10/18/2023 4:39 PM MECHANICAL PROCESS ENGINEER RDWG Ketone Trace(A) Negative mg/dL 10/18/2023 4:39 PM MECHANICAL PROCESS ENGINEER RDWG Bilirubin Small(A) Negative 10/18/2023 4:39 PM MECHANICAL PROCESS ENGINEER RDWG pH 5.5 5.0 - 8.0 10/18/2023 4:39 PM MECHANICAL PROCESS ENGINEER RDWG Specific [place] 1.021 1.001 - 1.035 10/18/2023 4:39 PM MECHANICAL PROCESS ENGINEER RDWG Urobilinogen 1.0 0.2 - 1.0 mg/dL 10/18/2023 4:39 PM MECHANICAL PROCESS ENGINEER RDWG White Blood Cells 11-20(A) /hpf 10/18/2023 6:05 PM MECHANICAL PROCESS ENGINEER RDWG Comment: ----REFERENCE VALUE---- Males: 0-3 Females: 0-10 Unknown: 0-10 Red Blood Cells 3-10(A) 0 - 2 /hpf 6:05 PM MECHANICAL PROCESS ENGINEER RDWG Dysmorphic Red Blood Cells <=25 <=25 % 10/18/2023 6:05 PM MECHANICAL PROCESS ENGINEER RDWG Hyaline Casts None Seen /lpf 10/18/2023 6:05 PM MECHANICAL PROCESS ENGINEER RDWG Granular Casts 4-10(A) None Seen /lpf 10/18/2023 6:05 PM MECHANICAL PROCESS ENGINEER RDWG Squamous Cells 4-10 /hpf 10/18/2023 6:05 PM MECHANICAL PROCESS ENGINEER RDWG Urine (Urine, Straight Catheter) 10/18/2023 4:11 PM MECHANICAL PROCESS ENGINEER 10/18/2023 4:25 PM MECHANICAL PROCESS ENGINEER Alejandra Souza P.A.-C. LAB URINE ORDERA BLES [facility] [address] [place] [address], [facility] RDWG [facility] in [place] [address] [place] [phone] from Last 3 Months Advance Directives For more information, please contact: [phone] * Full Code (Latest Code Status on File) Date Activated Date Inactivated Comments 06/13/2018 12:21 PM 06/13/2018 3:13 PM Question Answer Comments Full Code: Discussed * Full Code Date Activated Date Inactivated Comments 06/04/2018 11:49 AM 06/04/2018 2:31 PM Question Answer Comments Full Code: Discussed
--- OUTSIDE RECORDS SUMMARY | 2023-12-12 22:32 | XMS_ITS | Encounter Summary ---
Author Name Unknown Organization [facility] Address [address] [place] [address] Care Team Providers Care Conventional Underwriter Name Role Phone Unavailable Primary Care Provider Unavailabl e Reason for Visit * Reason Onset Date Comments Pre-visit Intake 11/23/2023 [facility] 11/23/2023 [facility] Encounter Details Date Type Department Care Team (Latest Contact Info) Description 11/23/2023 Clinical Communication Division of Gastroenterology in [place], [place] [address] [place] [address] Provider, Unknown Pre-visit Intake; [facility] ([facility]/) Social History Tobacco Use Types Packs/Day Years [...] encounter Miscellaneous Notes * Telephone Encounter - Joaquina Berry - 11/23/2023 12:13 PM CDT STOP CHECK CARE EVERYWHERE BEFORE SENDING REQUEST We are waiting for, please request the items below for this patient. GI Pancreas Masses/Cancer Timeframe for records/imaging needed: Going back 1 year or since onset date of November 16, 2023 related to suspected pancreatic cancer diagnosis. Images Needed: CT Abdomen, CT Pancreas Protocol, MRI/MRCP, CT Chest, Any PET MRI or CT, and Xray images from ERCPs. Facility and date completed: CT Scan at [place], [place], Records Needed: All office visits notes from Primary Care, GI, Hematology, Oncology, Genetics, Surgery, ER ER, Admission and Discharge notes and summaries EGD, Colonoscopy, EUS, ERCP reports All Labs, stool studies, and genetic reports Pathology reports for Pancreas fine needle aspiration/fine needle biopsy, brushings Facility and date completed: Labs on November 13, 2023, at [place], [place], Appointment Scheduled: No Do you want a reply once all [facility]/Images are uploaded? NO Note: You will still get replies if not all records are obtained. Please reply to [facility] Nurse. documented in this encounter Plan of Treatment Upcoming Encounters Date Type Department Care Team (Latest Contact Info) Description 12/13/2023 9:20 AM CDT Comprehensive Visit Division of Gastroenterology in [address] [phone] Audra Doss C.N.P. [address] [place] [address] Sam Lee M.D. [address] [place] [phone] 12/25/2023 1:30 PM CDT Appointment Division of Gastroenterology in [address] [phone] Calvin Bailey M.D. [address] [place] [phone] Isrrael Caruso M.D. [address] [place] [address] 12/29/2023 9:00 AM CDT Clinical Support Department of Nutrition and Diabetes Education in [place], [place] [address] [place] [address] Calvin Bailey M.D. [address] [place] [phone] Maricruz Ryan M.S., RDN, LD [address] [place] [phone] 01/15/2024 8:00 AM CDT Procedure visit Department of Urology in [address] [phone] Alejandra Souza P.A.-C. [address] [place] [address] Discharge Disposition: Home or Self Care documented as of this encounter Visit Diagnoses Not on filedocumented in this encounter
--- OUTSIDE RECORDS SUMMARY | 2023-12-12 22:32 | XMS_ITS | Encounter Summary ---
Author Name Unknown Organization [facility] Address [address] [place] [address] Care Team Providers Care Gear Straightener Name Role Phone Unavailable Primary Care Provider Unavailabl e Encounter Details Date Type Department Care Team ([facility] st Contact Info) Description 12/04/2023 Patient Outreach Department of Oncology in [place], [place] [address] [place] [phone] Dariela Palmer, RHerbertN. [address] [place] [phone] Social History Tobacco Use Types Packs/Day Years Used Date Smoking Tobacco: Never Smokeless Tobacco: Never Alcohol Use Standard Drinks/Week Comments No 0 (1 standard drink = 0.6 oz pur e alcohol) [facility] Utilities Answer Date Recorded In the past 12 months has e electric, gas, oil, or water [employer] threatened to shut off services in your [...] your living situation today? I have a [facility] place to live 11/29/2023 Sex and Gender Information Value Date Recorded Sex Assigned at Female 11/29/2023 7:47 PM CDT Gender Identity Female 11/29/2023 7:47 PM CDT Sexual Orientation Straight 11/29/2023 7: 47 PM CDT documented as of this encounter Plan of Treatment Upcoming Encounters Date Type Department Care Team (Latest Contact Info) Description 12/13/2023 9:20 AM CDT Comprehensive Visit Division of Gastroenterology in [place], [place] 200 [place] [phone] Audra Doss C.NHerbertP. 1999 [place] [address] Sam Lee M.D. [address] [place] [phone] 12/25/2023 1:30 PM CDT Appointment Division of Gastroenterology in [place], [place] 200 [place] [phone] Calvin Bailey M.D. [address] [place] [phone] [place] [phone] 12/29/2023 9:00 AM CDT Clinical Support Department of Nutrition and Diabetes Education in [place], [place] [address] [place] [address] Calvin Bailey M.D. [address] [place] [phone] Maricruz Ryan M.S., RDN, LD [address] [place] [phone] 01/15/2024 8:00 AM CDT Procedure visit Department of Urology in [address] [phone] Alejandra Souza P.A.-C. [address] [phone] Discharge Disposition: Home or Self Care documented as of this encounter Visit Diagnoses Not on filedocumented in this encounter
--- OUTSIDE RECORDS SUMMARY | 2023-12-12 22:32 | XMS_ITS | Referral Summary ---
Author Name Unknown Organization [facility] Address [address] [place] [address] Care Team Providers Care Furniture Cleaner Name Role Phone Unavailable Primary Care Provider Unavailabl e Source Comments Patient records contain information from all sites at [facility]. For routine questions regarding patient records, call [phone] during business hours, M-F 8:00 AM - 5:00 PM Central Time. Record requests for emergency care only can be directed to [phone] at any time.[facility] Encounters Date Type Department Care Team Description 12/12/2023 Clinical Communication Division of Gastroenterology in [address] [phone] Prescheduling, Provider 12/12/2023 2:30 PM CDT Clinical Communication Virtual Review in [address] [phone] Pre-visit Intake 12/12/2023 10:26 AM CDT Hospital Encounter Department of Laboratory Medicine and Pathology, [facility], in [address] [phone] Calvin Bailey M.D. Mass Pancreas 12/12/2023 11:34 AM CDT Hospital Encounter Department of Radiology, [facility], in [address] [phone] Calvin Bailey M.D. Mass Pancreas 12/04/2023 Patient Outreach Department of Oncology in [address] [phone] Dariela Palmer R.N. 11/30/2023 9:20 AM CDT Telemedicine Division of Gastroenterology in [place], [place] [address] [place] [phone] Deyanira García R.N. Mass Pancreas (Primary Dx) 11/29/2023 10:00 AM CDT Clinical Communication Virtual Review in [place], [place] 200 [place] [phone] Pre-visit Intake 11/23/2023 Clinical Communication Division of Gastroenterology in [place], [place] [address] [place] [phone] Provider, Unknown Pre-visit Intake; [facility] (GIH/) 11/16/2023 [facility] [address] [place] [address] Audra Doss, C.N.P. Abnormal Findings On Diagnostic Imaging Of Other Abdominal Regions Including Retroperitoneum (Primary Dx) 11/03/2023 Clinical Communication Department of Urology in [address] [phone] Alejandra Souza, P.A.-C. Communication 10/19/2023 Orders Only Department of Urology in [address] [phone] Alejandra Souza, P.A.-C. 10/18/2023 2:30 PM EDUCATIONAL ASSISTANT Comprehensive Visit Department of Urology in [address] [phone] Alejandra Souza, P.A.-C. Cystitis Recurrent (Primary Dx); Urinary Tract Infection Site Not Specified; Dysfunction Voiding Discharge Disposition: Home or Self Care 10/17/[address] [facility] [address] [place] [address] Audra Doss, C.N.P. Urinary Tract Infection (UTI)/Bacteriuria NOS (Primary Dx) 10/02/2023 Clinical Communication Department of Ophthalmology in [address] [phone] Mauri Farrell M.D. from Last 3 Months Allergies Active Allergy Reactions Criticality Noted Date [...] glucose scanning reader (FreeStyle Barbie 14 Day [place]) by other route. 08/25/2022 Active estradioL (ESTRACE) [...] other route. 11/06/2023 A ctive A LIPOIC [id number] E ORAL Take by mouth daily. 11/02/2023 [...] Overview: Added automatically from request for surgery [id number] Cataract Senile Nuclear Sclerosis Left 8 Overview: Added automatically from request for surgery [id number] Social History Tobacco Use Types Packs/Day Years Used Date Smoking Tobacco: Never Smokeless Tobacco: Never Tobacco Cessation:Counseling Given: Not Answered Alcohol Use Standard Drinks/Week Comments No 0 (1 standard drink = 0.6 oz pur e alcohol) [facility] Utilities Answer Date Recorded In the past 12 months has e [employer], gas, oil, or water [employer] threatened to shut off services in your [...] your living situation today? I have a [facility] place to live 11/29/2023 Sex and [...] CDT Comprehensive Visit Division of Gastroenterology in [place], [place] [address] [place] [address] Audra Doss, LashaunNHerbertP. [address] [place] [phone] [place] [phone] 12/25/2023 1:30 PM CDT Appointment Division of Gastroenterology in [place], [place] [address] [place] [phone] Calvin Bailey M.D. [address] [place] [phone] Isrrael Caruso M.D. [address] [place] [phone] 12/29/2023 9:00 AM CDT Clinical Support Department of Nutrition and Diabetes Education in [place], [place] [address] [place] [address] Calvin Bailey M.D. [address] [place] [phone] Maricruz Ryan M.S., RDN, [address] [place] [phone] 01/15/2024 8:00 AM CDT Procedure visit Department of Urology in [address] [phone] Alejandra Souza P.A.-Lashaun [address] [phone] Discharge Disposition: Home or Self Care Medical Devices Implanted Type Area Callisthenics Instructor Device Identifier Shelf Expiration Date Model / Serial / Lot Hip Implant Hip Implant Bilater al: Hip Lens Tcn [id number] +25.0d - [id number] - [id number] Implanted:Qty : 1 on 06/04/2018 by Mauri Farrell M.D. at [facility] [address] Ocular Lens [employer] (Previously ALONDRA) [id number] / [id number] / Lens Tcn [id number] Ant +26.0d - [id number] - [id number] Implanted:Qty : 1 on 06/13/2018 by Mauri Farrell M.D. at [facility] [address] Ocular Lens Left: Eye [employer] (Previously ALONDRA) [id number] 12/07/2021 [id number] / [id number] / Procedures Procedure Name Priority Date/Time [...] BODY Routine 11/13/2023 11:20 AM CDT CYTOLOGY NON-UPHOLSTERY PARTS SORTER Routine 10/18/2023 4:12 PM EDUCATIONAL ASSISTANT Cystitis Recurrent URINALYSIS WITH MICROSCOPIC Routine 10/18/2023 4:11 PM EDUCATIONAL ASSISTANT Cystitis Recurrent BACTERIAL CULTURE, AEROBIC + SUSC, URINE Routine 10/18/2023 4:11 PM EDUCATIONAL ASSISTANT Cystitis Recurrent from Last 3 Months Results [...] Bailey M.D. IMG CT PROCEDURES * (ABNORMAL) Carbohydrate Antigen 19-9 (CA 19-9) (12/12/2023 10:43 AM CDT) Carbohydrate Ag 19-9, S 84(H) <35 U/mL 12/12/2023 3:08 PM CDT [facility] Comment: ----ADDITIONAL INFORMATION---- The testing method is an immunoenzymatic assay manufactured by [employer]. and performed on the [employer] 800. ? Values obtained with different assay methods or kits may be different and cannot be used interchangeably. ? Test results cannot be interpreted as absolute evidence for the presence or absence of malignant disease. Blood (Blood, Venous) 12/12/2023 10:43 AM CDT 12/12/2023 2:07 PM CDT Calvin Bailey M.D. LAB BLOOD ADD-ON Performing Organization Address [facility] Co de Phone Number [facility] [address] [place] [address] [facility] [address] [place] [address] * (ABNORMAL) Prothrombin Time (PT) (12/12/2023 10:43 AM CDT) Pathologist [facility] Prothrombin Time, P 12.6(H) 9.4 - 12.5 sec 12/12/2023 11:25 AM CDT DTL INR 1.1 0.9 - 1.1 12/12/2023 11:25 AM CDT DTL Comment: ----ADDITIONAL INFORMATION---- Standard intensity warfarin therapeutic range: 2.0 to 3.0 ?? High intensity warfarin therapeutic range: 2.5 to 3.5 Blood (Blood, Venous) 12/12/2023 10:43 AM CDT 12/12/2023 11:03 AM CDT Calvin Bailey M.D. LAB BLOOD ADD-ON Performing Organization Address [facility]/ZIP Co de Phone Number [facility] [address] [place], [place] [phone] [place] [address] DTL [facility] [address] [place] [address] * (ABNORMAL) CBC with Differential, Blood (12/12/2023 [...] CDT Calvin Bailey M.D. LAB BLOOD ADD-ON [facility] [address] [place] [address], [facility] [address] [place] [address] [facility] 200 [place] [address] * (ABNORMAL) Hemoglobin A1c (12/12/2023 10:43 AM CDT) Hemoglobin A1c, B 7.6(H) 4.0 - 5.6 % 12/12/2023 11:49 AM CDT DT Comment: Hemoglobin A1c values greater than or equal to 6.5 percent are diagnostic for diabetes mellitus. ??Diagnosis should be confirmed by repeat testing. ??In diabetic patients, HbA1c goals should be discussed with healthcare provider. Blood (Blood, Venous) 12/12/2023 10:43 AM CDT 12/12/2023 11:03 AM CDT Calvin Bailey M.D. LAB BLOOD ADD-ON [facility] [address] [place], [place] [address] 200 [place] [address] * (ABNORMAL) Bilirubin, Direct (12/12/2023 10:43 AM CDT) Bilirubin, Direct, S 1.4(H) 0.0 - 0.3 mg/dL 12/12/2023 11:42 AM CDT DT Blood (Blood, Venous) 12/12/2023 10:43 AM CDT 12/12/2023 11:24 AM CDT Calvin Bailey M.D. LAB BLOOD ADD-ON [facility] [address] [place] [address], [facility] 200 [place] [address] * (ABNORMAL) Comprehensive Metabolic Panel (12/12/2023 10:43 AM CDT) [facility] Potassium, S 5.1 3.6 - 5.2 mmol/L [...] CDT Calvin Bailey M.D. LAB BLOOD ADD-ON [facility] [address] [place] [address], [place] DTL [facility] [address] [place] [address] * CT chest abdomen pelv w con-Outside [...] Provider Not In System IMG CT PROCEDURES Performing Organization Address City/[facility]/ZIP Co de Phone Number [facility] NA * Cytology Non-UPHOLSTERY PARTS SORTER (10/18/2023 4:12 PM EDUCATIONAL ASSISTANT) 10/20/2023 10:42 AM EDUCATIONAL ASSISTANT ECLR Fixative n/a 10/20/2023 10:42 AM EDUCATIONAL ASSISTANT ECLR Report electronically signed by Romie Moran M.D. I verify that I have examined all relevant slides/material s for the specimen(s) and rendered or confirmed the diagnosis. 10/20/2023 10:42 AM EDUCATIONAL ASSISTANT ECLR Gross Description Received 40 cc of cloudy yellow fluid without fixative. 10/20/2023 10:42 AM EDUCATIONAL ASSISTANT ECLR Collection Procedure Straight cath 10/20/2023 10:42 AM EDUCATIONAL ASSISTANT ECLR Source A. Urine, straight, catheterized 10/20/2023 10:42 AM EDUCATIONAL ASSISTANT ECLR Clinical History recurrent UTIs 03/2024 10:42 AM EDUCATIONAL ASSISTANT ECLR Interpretation A. Urine, straight, catheterized (cytospin): Negative for High-Grade Urothelial Carcinoma. Crystals present. 10/20/2023 10:42 AM EDUCATIONAL ASSISTANT ECLR Urine 10/18/2023 4:12 PM EDUCATIONAL ASSISTANT 10/19/2023 1:48 PM EDUCATIONAL ASSISTANT Alejandra Souza P.A.-C. LAB SURG PATH OR DERABLES Performing Organization Address [facility]/ZIP Co de Phone Number [facility] [address] [place] [address], [facility] ECLR [address] [place] [phone] * Bacterial Culture, Aerobic + Susceptibility, Urine (10/18/2023 4:11 PM EDUCATIONAL ASSISTANT) Urine Culture No growth after 1 day of incubation. 10/19/2023 3:19 PM EDUCATIONAL ASSISTANT ECLR Urine (Urine, Straight Catheter) 10/18/2023 4:11 PM EDUCATIONAL ASSISTANT 10/18/2023 8:40 PM EDUCATIONAL ASSISTANT Comment:Specimen Source Site : Urine Alejandra Souza P.A.-C. LAB MICROBIOLOGY - GENERAL ORDERABLES Performing Organization Address [facility] Co de Phone Number [facility] [address] [place] [address], [facility] ECLR [facility] in [address] [address] * (ABNORMAL) Urinalysis, with Microscopic: Urine, Straight Catheter (10/18/2023 4:11 PM EDUCATIONAL ASSISTANT) Source Urine, Urine, Straight Catheter 10/18/2023 4:39 PM EDUCATIONAL ASSISTANT RDWG Clarity Cloudy(A) Clear 10/18/2023 4:39 PM EDUCATIONAL ASSISTANT RDWG Color [place] 10/18/2023 4:39 PM EDUCATIONAL ASSISTANT RDWG Comment: ----REFERENCE VALUE---- Colorless Yellow [place] Blood Negative Negative 10/18/2023 4:39 PM EDUCATIONAL ASSISTANT RDWG Nitrite Negative Negative 10/18/2023 4:39 PM EDUCATIONAL ASSISTANT RDWG Leukocyte Esterase Negative Negative 10/18/2023 4:39 PM EDUCATIONAL ASSISTANT RDWG Protein 30(A) mg/dL 10/18/2023 4:39 PM EDUCATIONAL ASSISTANT RDWG Comment: ----REFERENCE VALUE---- Negative Trace Glucose 250(A) Negative mg/dL 10/18/2023 4:39 PM EDUCATIONAL ASSISTANT RDWG Ketone Trace(A) Negative mg/dL 10/18/2023 4:39 PM EDUCATIONAL ASSISTANT RDWG Bilirubin Small(A) Negative 10/18/2023 4:39 PM EDUCATIONAL ASSISTANT RDWG pH 5.5 5.0 - 8.0 10/18/2023 4:39 PM EDUCATIONAL ASSISTANT RDWG Specific [place] 1.021 1.001 - 1.035 10/18/2023 4:39 PM EDUCATIONAL ASSISTANT RDWG Urobilinogen 1.0 0.2 - 1.0 mg/dL 10/18/2023 4:39 PM EDUCATIONAL ASSISTANT RDWG White Blood Cells 11-20(A) /hpf 10/18/2023 6:05 PM EDUCATIONAL ASSISTANT RDWG Comment: ----REFERENCE VALUE---- Males: 0-3 Females: 0-10 Unknown: 0-10 Red Blood Cells 3-10(A) 0 - 2 /hpf 6:05 PM EDUCATIONAL ASSISTANT RDWG Dysmorphic Red Blood Cells <=25 <=25 % 10/18/2023 6:05 PM EDUCATIONAL ASSISTANT RDWG Hyaline Casts None Seen /lpf 10/18/2023 6:05 PM EDUCATIONAL ASSISTANT RDWG Granular Casts 4-10(A) None Seen /lpf 10/18/2023 6:05 PM EDUCATIONAL ASSISTANT RDWG Squamous Cells 4-10 /hpf 10/18/2023 6:05 PM EDUCATIONAL ASSISTANT RDWG Urine (Urine, Straight Catheter) 10/18/2023 4:11 PM EDUCATIONAL ASSISTANT 10/18/2023 4:25 PM EDUCATIONAL ASSISTANT Alejandra Souza P.A.-C. LAB URINE ORDERA BLES [facility] [address] [address], [facility] RDWG [facility] in [place] [address] [address] from Last 3 Months Advance Directives For more information, please contact: [phone] * Full Code (Latest Code Status on File) Date Activated Date Inactivated Comments 06/13/2018 12:21 PM 06/13/2018 3:13 PM Question Answer Comments Full Code: Discussed * Full Code Date Activated Date Inactivated Comments 06/04/2018 11:49 AM 06/04/2018 2:31 PM Question Answer Comments Full Code: Discussed
--- OUTSIDE RECORDS SUMMARY | 2023-12-12 22:33 | XMS_ITS | Clinical Summary ---
Author Name Unknown Organization [employer] [facility] [employer] Address [place], [place] [address] Care Team Providers Care Presto Log Operator Name Role Phone Mayra Hong FREIGHT INSPECTOR Unavailable [phone] Tarsha CRAWFORD MD, John Conteh Primary Care Provi linda Allergies Active Allergy Reactions Criticality Noted Date Comments Ampicillin *Unknown,Itching 10/28/2014 Tramadol Itching 11/06/2012 Medications Medication Sig Dispensed Refills Start Date End Date Status cholecalciferol (VITAMIN D) 1,000 unit capsule Take 3,000 Units by mouth once daily. 11/10/2014 Active blood sugar diagnostic (Contour Next Test Strips) stripIndications:Typ e 2 diabetes mellitus without complication (HC) Dispense item covered by pt ins.TEST 3 TIMES DAILY. 300 Strip 3 02/24/2021 Active flash glucose scanning reader (FreeStyle Barbie 14 Day [place]) miscIndications:Type 2 diabetes mellitus without complication, without [...] Take 50 mg by mouth once daily. Active WalkerIndications:Ce rebrovascular accident (CVA), unspecified mechanism (HC) Walker with front wheels for indefinite home use. 1 Each 01/05/2023 Active citalopram (CELEXA) 10 mg tabletIndications:Ce rebrovascular accident (CVA), unspecified mechanism (HC) Take 1 Tablet (10 mg) by mouth once daily. 60 Tablet 01/05/2023 Active aspirin (ECOTRIN) 81 mg enteric coated tabletIndications:Ce rebrovascular accident (CVA), unspecified mechanism (HC) Take 1 Tablet (81 mg) by mouth once daily with a meal. 60 Tablet 01/06/2023 Active atorvastatin (LIPITOR) 20 mg tabletIndications:Ca rotid stenosis, left Take 1 Tablet (20 mg) by mouth once daily with evening meal. 30 Tablet 01/05/2023 Active clopidogreL (PLAVIX) 75 mg tabletIndications:Fa cial weakness due to recent stroke Take 1 Tablet (75 mg) by mouth once daily. 30 Tablet 01/05/2023 Active zinc sulfate (Zinc-220) 50 mg zinc (220 mg) capsule Take 220 mg by mouth once daily. Active Garlic 100 mg tab Take 1 Tablet by mouth at bedtime. Active TURMERIC ORAL Take 1 Tablet by mouth at bedtime. Active metFORMIN (GLUCOPHAGE) 500 mg tablet Take 500 mg by mouth two times daily with meals. Active sennosides-docusate (SENOKOT S) (8.6-50 mg) tabletIndications:Co nstipation, unspecified constipation type Take 1 to 4 tablets by mouth two times daily. 10 Tablet 01/20/2023 Active acetaminophen (TYLENOL) 325 mg tabletIndications:S/ [...] joint, lower leg 05/01/2012 Arthritis 05/01/2012 12/27/2012 Family History Medical History Relation Name Comments Diabetes Brother 1 Hypertension Brother 2 Hyperthyroidism Daughter Thyroid cancer Daughter Hypertension Father Diabetes Mother Hypertension Mother Stroke Sister Relation Name Status Comments Brother 1 Brother 2 Daughter Father (Age 72) [place] Mother (Age 69) Sister (Age 40) aneurysm [...] Health Maintenance Due Date Last Done Comments Pneumococcal series for age 65+ (1 of [...] 10/11/2022 10/11/2021, 10/08/2021, 05/29/2018, Additional history exists COVID-19 vaccine series ( - 2022- season) 2023 Influenza for age 65+ 04/14/2024 Medical Devices Implanted Type Area Technical Communication Teacher Device Identifier Shelf Expiration Date Model / Serial / Lot Tissue Pericardium 0.8x8cm Xenosure - [id number] Implanted:Qty: 1 on 01/19/2023 by Yaya Lewis MD at [facility] Left: Carotid Artery [employer] 10/11/2028 0.8P8 / / [id number] Insurance Payer Benefit Plan / Group Subscriber ID Effective Dates Phone Address Type MEDICARE PART A - HB USE ONLY MEDICARE PART A HB ONLY [id number] 2003-Prese nt ATTN: CLAIMS [address] [place] [address] MEDICARE PART B - HB USE ONLY MEDICARE PART B HB ONLY [id number] 2003-Prese nt ATTN: CLAIMS [address] [place] [address] MEDICARE - PB USE ONLY MEDICARE PB ONLY [id number] 2003-Prese nt ATTN: CLAIMS [address] [place] [address] MEDICARE PPS HC MEDICARE PPS [id number] 2003-Naheed lambert [address] [place] [address] [employer] [id number] Through [address] [place] [address] ATTN: [place] [address] Advance Directives * Full Code (Latest Code Status on File) Date Activated Date Inactivated Comments 01/19/2023 11:24 AM 01/20/2023 4:12 PM Question Answer Comments Code Status Discussion: Unable to Assess Preferences, Provider to review later * Full Code Date Activated Date Inactivated Comments 01/03/2023 9:22 PM 01/05/2023 9:11 PM Question Answer Comments Code Status Discussion: Reviewed Preferences Care Teams Presto Log Operator Relationship Specialty Start Date End Date John Willingham II, MD [address] [place] [phone] PCP - General Family Practice 05/03/22 Mayra Hong NP Nurse Practitioner Nurse Practitioner 11/07/14
[2023-12-12 22:54] LABS: Appearance Urine Cloudy (Clear); Bilirubin Urine 2+ (Negative); Blood Urine 2+ (Negative); Color Urine Yellow (Yellow); Glucose Urine Trace (Negative); Ketones Urine Trace (Negative); Leukocyte Esterase Urine Negative (Negative); Nitrite Urine Negative (Negative); Protein Urine 2+ (Negative); Specific Gravity Urine 1.015 (1.000-1.030); pH Urine 6.5 (5.0-8.5)
[2023-12-12 23:03] LABS: RBC Urine 0-2 (0-2)
[2023-12-12 23:04] LABS: Bacteria Urine Many; Squamous Epithelial Cell Urine Few (None-Few)
[2023-12-12 23:07] LABS: Basophils Percent Auto 0.1 % (0.0-3.0); Hematocrit 35.9 % (33.0-51.0); Hemoglobin* 11.8 gm/dL (12.0-16.0); Lymphocytes Percent Auto 2.8 % (20-44); Mean Corpuscular HGB Conc 33 gm/dL (32-36); Mean Corpuscular Hemoglobin 30 pg (26-34); Mean Corpuscular Volume 90 fL (80-100); Monocytes Percent Auto 4.2 % (0.0-11.0); Neutrophils Percent Auto 91.9 % (42.0-72.0); Platelet Count* 252 K/uL (140-440); RDW Coefficient of Variation % 13.1 % (11.5-15.5); Red Blood Count 3.98 m/uL (4.00-5.20); White Blood Count* 23.98 K/uL (4.50-11.00)
[2023-12-12 23:08] LABS: Slide Review Reflex No
[2023-12-12 23:13] LABS: Creatinine, Point-of-Care* 0.3 mg/dl (0.6-1.3)
[2023-12-12 23:20] LABS: Albumin* 4.3 g/dL (3.3-5.0)
[2023-12-12 23:21] LABS: Chloride* 102 mmol/L (96-114); Potassium* 4.1 mmol/L (3.6-5.1); Sodium* 134 mmol/L (135-149)
[2023-12-12 23:23] LABS: Anion Gap 13 mEq/L (7-15); Aspartate Amino Transferase* 274 U/L (12-35); Bilirubin Total* 4.5 mg/dL (0.1-1.5); Carbon Dioxide* 19 mmol/L (20-32); Creatinine* 0.7 mg/dL (0.5-1.5); Est. Creatinine Clearance* 29.54; Estimated Glomerular Filt Rate 85 ml/min
[2023-12-12 23:24] LABS: Alanine Aminotransferase* 187 U/L (4-35); Alkaline Phosphatase* 151 U/L (40-150); Blood Urea Nitrogen* 20 mg/dL (7-30); Calcium* 9.6 mg/dL (8.4-10.6); Glucose* 279 mg/dL (60-115); Lipase* 54 U/L (23-300); Magnesium* 1.8 mg/dL (1.5-2.6); Total Protein* 7.7 g/dL (6.0-8.3)
[2023-12-12 23:43] LABS: Lactate Sepsis w/Reflex* 3.3 mmol/L (0.5-1.9)
[2023-12-12 23:43] LABS: Troponin I* < 0.01 ng/mL (0.01-0.04)
[2023-12-12 23:45] LABS: PCR FLU A Negative PCR FLU A (Negative); PCR FLU B Negative PCR FLU B (Negative); PCR RSV Negative PCR RSV (Negative); SARS PCR* Negative SARS-CoV-2 (Negative)
--- NOTE | 2023-12-12 23:53 | ED.GENADULT ---
HPI - General Adult General Date Seen: 12/12/23 <Jam Hensley - Last Filed: 12/13/23 16:09> Chief complaint: Extremity Pain/Injury, Lower <Jam Hensley DO - Last Filed: 12/13/23 16:09> Stated complaint: Mental Status <Jam Hensley DO - Last Filed: 12/13/23 16:09> Time Seen by Provider: 12/12/23 21:59 <Jam Hensley DO - Last Filed: 12/13/23 16:09> Source: patient, family (Daughters) and EMS <Jam Hensley - Last Filed: 12/13/23 16:09> Mode of arrival: EMS <Jam Hensley - Last Filed: 12/13/23 16:09> Limitations: no limitations <Jam Hensley Last Filed: 12/13/23 16:09> History of Present Illness HPI narrative: Patient is an 83-year-old female with a history of CVA, multiple UTIs, orthostatic hypotension, type 2 diabetes presenting to the emergency department for concern of a stroke. Their daughter states they brought her to the [facility] this morning for bunch of lab tests involving concerns about abdominal issues. She was dropped of her also about 14:30 then about 18:00 he started trying to contact her. They were unable to so went to until about 20:00. At that time she was slurring her words and was not making sense when she was speaking. They states she had similar symptoms like this last year when she had a CVA except for at that time she also had right-sided facial droop. By the time EMS arrived they state she was no longer slurring her words. Patient this time denies fevers, chills, chest pain, abdominal pain, headache, vision changes, weakness, numbness. She is able answer all questions appropriately. <Jam Hensley DO - Last Filed: 12/13/23 16:09> Related Data Home medications: Home Medications Medication Instructions Recorded Confirmed cholecalciferol (vitamin D3) 25 1,000 unit PO DAILY 01/30/23 11/16/23 mcg (1,000 unit) capsule alpha lipoic acid 125 mg-biotin 95 cap PO DAILY 11/02/23 11/16/23 mcg-berberine 250 mg capsule d-mannose 500 mg capsule (AZO See Rx Instructions PO .COMPLEX 11/02/23 11/16/23 D-Mannose) triamcinolone acetonide 0.5 % 1 applic topical BID PRN 11/02/23 11/16/23 topical cream vitamin B complex 1 tab PO QDAY 11/02/23 11/16/23 Previous Rx's Medication Instructions Recorded blood-glucose sensor (FreeStyle #1 ea 08/25/22 Barbie 3 Sensor device) flash glucose scanning reader #1 ea 08/25/22 (FreeStyle Barbie 14 Day [place]) atorvastatin 20 mg tablet (Lipitor) 20 mg PO QHS 90 days #90 tabs 01/28/23 clopidogrel 75 mg tablet (Plavix) 75 mg PO QDAY 90 days #90 tabs 01/28/23 aspirin 81 mg tablet,delayed 81 mg PO QDAY 90 days #90 tabs 03/16/23 release (Adult Aspirin Regimen) flash glucose sensor (FreeStyle #2 ea 04/25/23 Barbie 2 Sensor kit) nitrofurantoin macrocrystal 50 mg 50 mg PO Q24H 90 days #90 caps 09/08/23 capsule estradiol 2 mg (7.5 mcg/24 hour) 1 vag ring vaginal [id number] 90 11/06/23 vaginal ring (Estring) days #1 ea glipizide 2.5 mg tablet 2.5 mg PO QDAY #90 tabs 11/23/23 glipizide 5 mg tablet 5 mg PO QDAY #90 tabs 11/23/23 <Jam Hensley DO - Last Filed: 12/13/23 16:09> Allergies/adverse reactions: Allergies Allergy/AdvReac Type Severity Reaction Status Date / Time ampicillin Allergy Intermediate Nausea Verified 11/16/23 10:59 tramadol Allergy Mild itching Verified 11/16/23 10:59 <Jam Hensley DO - Last Filed: 12/13/23 16:09> Review of Systems Status of ROS: Reports: 10 or more systems reviewed and unremarkable except as noted in History and below <Jam Hensley DO - Last Filed: 12/13/23 16:09> PFSH PFSH Surgical History: Surgical History History of left-sided carotid endarterectomy ?Z98.890 - Other specified postprocedural states (ICD-10) History of kidney removal ?Z90.5 - Acquired absence of kidney (ICD-10) History of hip replacement ?Z96.649 - Presence of unspecified artificial hip joint (ICD-10) <Jam Hensley DO - Last Filed: 12/13/23 16:09> Family History: Family History Father Coronary artery disease High blood pressure Sister Brain aneurysm Mother Diabetes High blood pressure Brother Diabetes High blood pressure Daughter Thyroid disease Daughter Thyroid cancer <Jam Hensley DO - Last Filed: 12/13/23 16:09> Social History: Social History Narrative: . 3 children. No formal exercise. Non-smoker. Alcohol rare. No illicit drug use. Smoking Status: Never smoker Do you use any of these nicotine containing products: None Second hand tobacco smoke exposure: No How often do you have a drink containing alcohol: never AUDIT-C Alcohol total score: 0 Non-prescribed substance use: denies use service: No <Jam Hensley DO - Last Filed: 12/13/23 16:09> Exam Narrative: Exam Narrative: Const: Well-nourished, Well-developed, in no distress Eyes: PERRL, no conjunctival injection, and symmetrical lids HENT: Atraumatic external nose and ears. Moist mucous membranes. Neck: Symmetric, trachea midline, No thyromegaly. CVS: RRR, No murmurs or gallops. Peripheral pulses 2+ and equal in all extremities RESP: Unlabored respiratory effort. Clear to auscultation bilaterally. GI: Nontender/Nondistended, No rebound or guarding. MSK:Extremities w/o deformity, Normal Active ROM Skin: Warm, Dry. No rashes or lesions. Neuro: Normal Muscle tone, Cranial nerves 2-12 grossly intact, normal [id number], normal [id number], normal gait, normal strength 5/5 upper lower extremities bilaterally, normal sensation upper and lower extremities bilaterally, normal rapid alternating movements. Psych: Awake, Alert, & Oriented x3. Appropriate mood and affect. <Jam Hensley, DO - Last Filed: 12/13/23 16:09> Const: Vital Signs, click to edit/add: Vital Signs - 24 hr 12/12/23 22:09 12/13/23 00:46 12/13/23 00:49 Temperature 99.9 F H Pulse Rate 92 91 Pulse Rate [Pulse Oximeter] 103 H Respiratory Rate 16 18 Blood Pressure 123/76 Blood Pressure [Ri ght Upper Arm] 124/58 L Pulse Oximetry 97 96 95 Oxygen Delivery Me thod Room Air Room Air 12/13/23 00:50 12/13/23 01:00 12/13/23 01:02 Temperature Pulse Rate 94 91 89 Pulse Rate [Pulse Oximeter] Respiratory Rate Blood Pressure 104/63 Blood Pressure [Ri ght Upper Arm] Pulse Oximetry 94 94 95 Oxygen Delivery Me thod 12/13/23 01:15 12/13/23 01:46 12/13/23 02:00 Temperature Pulse Rate 91 89 92 Pulse Rate [Pulse Oximeter] Respiratory Rate Blood Pressure Blood Pressure [Ri ght Upper Arm] Pulse Oximetry 97 95 97 Oxygen Delivery Me thod 12/13/23 02:25 Temperature 99.1 F Pulse Rate Pulse Rate [Pulse Oximeter] 88 Respiratory Rate 16 Blood Pressure Blood Pressure [Ri ght Upper Arm] 122/68 Pulse Oximetry 92 Oxygen Delivery Me thod Room Air <Jam Hensley, DO - Last Filed: 12/13/23 16:09> Vital Signs, click to edit/add: Vital Signs - 24 hr 12/12/23 22:09 12/13/23 00:46 12/13/23 00:49 Temperature 99.9 F H Pulse Rate 92 91 Pulse Rate [Pulse Oximeter] 103 H Respiratory Rate 16 18 Blood Pressure 123/76 Blood Pressure [Ri ght Upper Arm] 124/58 L Pulse Oximetry 97 96 95 Oxygen Delivery Me thod Room Air Room Air 12/13/23 00:50 12/13/23 01:00 12/13/23 01:02 Temperature Pulse Rate 94 91 89 Pulse Rate [Pulse Oximeter] Respiratory Rate Blood Pressure 104/63 Blood Pressure [Ri ght Upper Arm] Pulse Oximetry 94 94 95 Oxygen Delivery Me thod 12/13/23 01:15 12/13/23 01:46 12/13/23 02:00 Temperature Pulse Rate 91 89 92 Pulse Rate [Pulse Oximeter] Respiratory Rate Blood Pressure Blood Pressure [Ri ght Upper Arm] Pulse Oximetry 97 95 97 Oxygen Delivery Me thod 12/13/23 02:25 Temperature 99.1 F Pulse Rate Pulse Rate [Pulse Oximeter] 88 Respiratory Rate 16 Blood Pressure Blood Pressure [Ri ght Upper Arm] 122/68 Pulse Oximetry 92 Oxygen Delivery Me thod Room Air <Hyacinth Ventura MD - Last Filed: 12/13/23 01:57> Course Consultations Consultation #1: Called Crys DEL TORO back at the [place] transfer center. She would like the radiology reading faxed down to her. Reviewed with her that the CT is concerning for ascending cholangitis. This certainly would fit with patient's current clinical picture. Once she has the radiologist's report, she will reach out to the provider. They will be contacting us back hopefully shortly. 1:44 a.m.: Have spoken with Dr. Armstrong hospitalist at [facility]. He accepts patient. We need to wait for bed placement and then will arrange for transfer. Patient and family are updated, reviewed ascending cholangitis is the concern here. We did briefly discuss this. <Hyacinth Ventura MD - Last Filed: 12/13/23 01:57> Time: 01:21 <Hyacinth Ventura MD - Last Filed: 12/13/23 01:57> Vital Signs Vital signs: Initial Vital Signs Temperature 99.9 F H 12/12/23 22:09 Temperature Source Temporal Artery Scan 12/12/23 22:09 Pulse Rate 103 H 12/12/23 22:09 Respiratory Rate 16 12/12/23 22:09 Blood Pressure 124/58 L 12/12/23 22:09 Blood Pressure Mean 80 12/12/23 22:09 Blood Pressure Position Sitting 12/12/23 22:09 Pulse Oximetry 97 12/12/23 22:09 Oxygen Delivery Method Room Air 12/12/23 22:09 Vital Signs Temperature 99.9 F H 12/12/23 22:09 Pulse Rate 103 H 12/12/23 22:09 Respiratory Rate 16 12/12/23 22:09 Blood Pressure 124/58 L 12/12/23 22:09 Pulse Oximetry 97 12/12/23 22:09 Oxygen Delivery Method Room Air 12/12/23 22:09 Temperature 99.1 F 12/13/23 02:25 Pulse Rate 88 12/13/23 02:25 Respiratory Rate 16 12/13/23 02:25 Blood Pressure 122/68 12/13/23 02:25 Pulse Oximetry 92 12/13/23 02:25 Oxygen Delivery Method Room Air 12/13/23 02:25 <Jam Hensley DO - Last Filed: 12/13/23 16:09> Initial Vital Signs Temperature 99.9 F H 12/12/23 22:09 Temperature Source Temporal Artery Scan 12/12/23 22:09 Pulse Rate 103 H 12/12/23 22:09 Respiratory Rate 16 12/12/23 22:09 Blood Pressure 124/58 L 12/12/23 22:09 Blood Pressure Mean 80 12/12/23 22:09 Blood Pressure Position Sitting 12/12/23 22:09 Pulse Oximetry 97 12/12/23 22:09 Oxygen Delivery Method Room Air 12/12/23 22:09 Vital Signs Temperature 99.9 F H 12/12/23 22:09 Pulse Rate 103 H 12/12/23 22:09 Respiratory Rate 16 12/12/23 22:09 Blood Pressure 124/58 L 12/12/23 22:09 Pulse Oximetry 97 12/12/23 22:09 Oxygen Delivery Method Room Air 12/12/23 22:09 Temperature 99.1 F 12/13/23 02:25 Pulse Rate 88 12/13/23 02:25 Respiratory Rate 16 12/13/23 02:25 Blood Pressure 122/68 12/13/23 02:25 Pulse Oximetry 92 12/13/23 02:25 Oxygen Delivery Method Room Air 12/13/23 02:25 <Hyacinth Ventura MD - Last Filed: 12/13/23 01:57> Medications Administered Medications: Discontinued Medications Generic Name Dose Route Start Last Admin Trade Name Freq PRN Reason Stop Dose Admin Sodium Chloride 1,000 mls @ 1,000 mls/hr 12/12/23 23:30 12/13/23 02:24 0.9 % Sodium Chloride 1000 Ml IV 12/13/23 00:29 Infused .Q1H CARMEN Infusion Metronidazole 500 mg in 100 mls @ 100 mls/hr 12/13/23 00:13 12/13/23 01:45 Metronidazole IVPB 12/13/23 01:12 Infused ONCE ONE Infusion Ceftriaxone Sodium 1 gm/ 100 mls @ 200 mls/hr 12/13/23 00:13 12/13/23 01:44 Sodium Chloride IVPB 12/13/23 00:14 Infused ONCE ONE Infusion Sodium Chloride 500 mls @ 1,000 mls/hr 12/13/23 00:30 12/13/23 02:24 0.9 % Sodium Chloride 500 Ml IV 12/13/23 00:59 Infused .Q30M ONE Infusion <Jam Hensley DO - Last Filed: 12/13/23 16:09> Discontinued Medications Generic Name Dose Route Start Last Admin Trade Name Freq PRN Reason Stop Dose Admin Sodium Chloride 1,000 mls @ 1,000 mls/hr 12/12/23 23:30 12/13/23 02:24 0.9 % Sodium Chloride 1000 Ml IV 12/13/23 00:29 Infused .Q1H CARMEN Infusion Metronidazole 500 mg in 100 mls @ 100 mls/hr 12/13/23 00:13 12/13/23 01:45 Metronidazole IVPB 12/13/23 01:12 Infused ONCE ONE Infusion Ceftriaxone Sodium 1 gm/ 100 mls @ 200 mls/hr 12/13/23 00:13 12/13/23 01:44 Sodium Chloride IVPB 12/13/23 00:14 Infused ONCE ONE Infusion Sodium Chloride 500 mls @ 1,000 mls/hr 12/13/23 00:30 12/13/23 02:24 0.9 % Sodium Chloride 500 Ml IV 12/13/23 00:59 Infused .Q30M ONE Infusion <Hyacinth Ventura MD - Last Filed: 12/13/23 01:57> Medical Decision Making [facility] Narrative Medical decision making narrative: Patient is an 83-year-old female presenting to emergency department for concern of a TIA her daughters. She is back at her baseline at this time and answering all questions appropriately. I do not believe is necessary to call a code stroke. Will order CT scan of the head and a CTA of the head and neck. Patient's initial pulse is 103 but does not meet any other criteria for sepsis per the vital signs. Will order a CMP, urinalysis, magnesium, CBC, go was is this is RSV, lipase, EKG, troponin. Lab work returned with white blood cell count 23.98. This morning when she had lab work done her white count was 10.6. Neutrophils was 8.23. Now white blood cell count is 23.98 and neutrophils are 22. Her hemoglobin and platelet count are consistent with this morning. At this time blood cultures and lactate were ordered. Her CMP returned showing her bilirubin up to 4.5. It was 1.7 this morning. The rest of her LFTs are actually down compared to this morning. Troponin is within normal limits. Lipase within normal limits. Urinalysis shows no clear signs of a UTI at this time. EKG shows no concerning abnormalities. Had this time I am concerned about cholecystitis due to the CT scan she had done this morning showing a stricture of the common bile duct. I am concerned she has developed this infection since this previous imaging was done so I will re CT her chest abdomen pelvis. Flagyl Rocephin were ordered. COVID/flu/RSV work done and was negative. I spoke to the [facility] transfer line and they will get back to us when the images are done and pushed to them. The patient has been given normal saline at 30 mL/kilogram. <Jam Hensley, DO - Last Filed: 12/13/23 16:09> Lab Data Labs: Lab Results 12/12/23 12/12/23 12/12/23 Range/Units 22:30 22:45 22:45 WBC 23.98 H (4.50-11.00) K/uL RBC 3.98 L (4.00-5.20) m/uL Hgb 11.8 L (12.0-16.0) gm/dL Hct 35.9 (33.0-51.0) % MCV 90 (80-100) fL MCH 30 (26-34) pg MCHC 33 (32-36) gm/dL RDW Coeff of Lisbet 13.1 (11.5-15.5) % Plt Count 252 (140-440) K/uL Neut % (Auto) 91.9 H (42.0-72.0) % Lymph % (Auto) 2.8 L (20-44) % [place] % (Auto) 4.2 (0.0-11.0) % Eos % (Auto) 0.0 (0.0-7.0) % Baso % (Auto) 0.1 (0.0-3.0) % Neut # (Auto) 22.00 H (1.7-7.0) K/uL Lymph # (Auto) 0.70 L (0.90-2.90) K/uL [place] # (Auto) 1.00 H (0.00-0.90) K/UL Eos # (Auto) 0.00 (0.00-0.50) K/uL Baso # (Auto) 0.00 (0.00-0.30) K/uL Abs Immat Gran (auto) 0.20 (0.00-0.30) K/uL Imm/Tot Granulo (auto) 1.0 % Sodium 134 L (135-149) mmol/L Potassium 4.1 (3.6-5.1) mmol/L Chloride 102 (96-114) mmol/L Carbon Dioxide 19 L (20-32) mmol/L Anion Gap 13 (7-15) mEq/L BUN 20 (7-30) mg/dL Creatinine 0.7 (0.5-1.5) mg/dL Estimated Creat Clear 29.54 Estimated GFR 85 ml/min Glucose 279 H (60-115) mg/dL Lactate (0.5-1.9) mmol/L Calcium 9.6 (8.4-10.6) mg/dL Magnesium 1.8 Cancelled (1.5-2.6) mg/dL Total Bilirubin 4.5 H (0.1-1.5) mg/dL AST 274 H (12-35) U/L ALT 187 H (4-35) U/L Alkaline Phosphatase 151 H (40-150) U/L Troponin I < 0.01 L (0.01-0.04) ng/mL Total Protein (6.0-8.3) g/dL Albumin (3.3-5.0) g/dL Lipase (23-300) U/L Urine Color Yellow (Yellow) Urine Appearance Cloudy A (Clear) Urine pH 6.5 (5.0-8.5) Ur Specific [place] 1.015 (1.000-1.030) Urine Protein 2+ A (Negative) Urine Glucose (UA) Trace A (Negative) Urine Ketones Trace A (Negative) Urine Blood 2+ A (Negative) Urine Nitrite Negative (Negative) Urine Bilirubin 2+ A (Negative) Urine Urobilinogen 1.0 (0.2-1.0) Ur Leukocyte Esterase Negative (Negative) Urine RBC 0-2 (0-2) Urine WBC 2-5 (0-5) Ur Squamous Epith Cells Few (None-Few) Urine Bacteria Many A (None) SARS-CoV-2 (PCR) (Negative) Influenza Type A (PCR) (Negative) Influenza Type B (PCR) (Negative) RSV (PCR) (Negative) POC Creatinine (0.6-1.3) mg/dl 12/12/23 12/12/23 12/12/23 Range/Units 22:45 23:05 23:35 WBC (4.50-11.00) K/uL RBC (4.00-5.20) m/uL Hgb (12.0-16.0) gm/dL Hct (33.0-51.0) % MCV (80-100) fL MCH (26-34) pg MCHC (32-36) gm/dL RDW Coeff of Lisbet (11.5-15.5) % Plt Count (140-440) K/uL Neut % (Auto) (42.0-72.0) % Lymph % (Auto) (20-44) % [place] % (Auto) (0.0-11.0) % Eos % (Auto) (0.0-7.0) % Baso % (Auto) (0.0-3.0) % Neut # (Auto) (1.7-7.0) K/uL Lymph # (Auto) (0.90-2.90) K/uL [place] # (Auto) (0.00-0.90) K/UL Eos # (Auto) (0.00-0.50) K/uL Baso # (Auto) (0.00-0.30) K/uL Abs Immat Gran (auto) (0.00-0.30) K/uL Imm/Tot Granulo (auto) % Sodium (135-149) mmol/L Potassium (3.6-5.1) mmol/L Chloride (96-114) mmol/L Carbon Dioxide (20-32) mmol/L Anion Gap (7-15) mEq/L BUN (7-30) mg/dL Creatinine (0.5-1.5) mg/dL Estimated Creat Clear Estimated GFR ml/min Glucose (60-115) mg/dL Lactate 3.3 H (0.5-1.9) mmol/L Calcium (8.4-10.6) mg/dL Magnesium (1.5-2.6) mg/dL Total Bilirubin (0.1-1.5) mg/dL AST (12-35) U/L ALT (4-35) U/L Alkaline Phosphatase (40-150) U/L Troponin I Cancelled (0.01-0.04) ng/mL Total Protein 7.7 (6.0-8.3) g/dL Albumin 4.3 (3.3-5.0) g/dL Lipase 54 (23-300) U/L Urine Color (Yellow) Urine Appearance (Clear) Urine pH (5.0-8.5) Ur Specific [place] (1.000-1.030) Urine Protein (Negative) Urine Glucose (UA) (Negative) Urine Ketones (Negative) Urine Blood (Negative) Urine Nitrite (Negative) Urine Bilirubin (Negative) Urine Urobilinogen (0.2-1.0) Ur Leukocyte Esterase (Negative) Urine RBC (0-2) Urine WBC (0-5) Ur Squamous Epith Cells (None-Few) Urine Bacteria (None) SARS-CoV-2 (PCR) Negative SARS-CoV-2 (Negative) Influenza Type A (PCR) Negative PCR FLU A (Negative) Influenza Type B (PCR) Negative PCR FLU B (Negative) RSV (PCR) Negative PCR RSV (Negative) POC Creatinine 0.3 L (0.6-1.3) mg/dl 12/13/23 Range/Units 01:45 WBC (4.50-11.00) K/uL RBC (4.00-5.20) m/uL Hgb (12.0-16.0) gm/dL Hct (33.0-51.0) % MCV (80-100) fL MCH (26-34) pg MCHC (32-36) gm/dL RDW Coeff of Lisbet (11.5-15.5) % Plt Count (140-440) K/uL Neut % (Auto) (42.0-72.0) % Lymph % (Auto) (20-44) % [place] % (Auto) (0.0-11.0) % Eos % (Auto) (0.0-7.0) % Baso % (Auto) (0.0-3.0) % Neut # (Auto) (1.7-7.0) K/uL Lymph # (Auto) (0.90-2.90) K/uL [place] # (Auto) (0.00-0.90) K/UL Eos # (Auto) (0.00-0.50) K/uL Baso # (Auto) (0.00-0.30) K/uL Abs Immat Gran (auto) (0.00-0.30) K/uL Imm/Tot Granulo (auto) % Sodium (135-149) mmol/L Potassium (3.6-5.1) mmol/L Chloride (96-114) mmol/L Carbon Dioxide (20-32) mmol/L Anion Gap (7-15) mEq/L BUN (7-30) mg/dL Creatinine (0.5-1.5) mg/dL Estimated Creat Clear Estimated GFR ml/min Glucose (60-115) mg/dL Lactate 2.6 H (0.5-1.9) mmol/L Calcium (8.4-10.6) mg/dL Magnesium (1.5-2.6) mg/dL Total Bilirubin (0.1-1.5) mg/dL AST (12-35) U/L ALT (4-35) U/L Alkaline Phosphatase (40-150) U/L Troponin I (0.01-0.04) ng/mL Total Protein (6.0-8.3) g/dL Albumin (3.3-5.0) g/dL Lipase (23-300) U/L Urine Color (Yellow) Urine Appearance (Clear) Urine pH (5.0-8.5) Ur Specific [place] (1.000-1.030) Urine Protein (Negative) Urine Glucose (UA) (Negative) Urine Ketones (Negative) Urine Blood (Negative) Urine Nitrite (Negative) Urine Bilirubin (Negative) Urine Urobilinogen (0.2-1.0) Ur Leukocyte Esterase (Negative) Urine RBC (0-2) Urine WBC (0-5) Ur Squamous Epith Cells (None-Few) Urine Bacteria (None) SARS-CoV-2 (PCR) (Negative) Influenza Type A (PCR) (Negative) Influenza Type B (PCR) (Negative) RSV (PCR) (Negative) POC Creatinine (0.6-1.3) mg/dl <Jam Hensley, DO - Last Filed: 12/13/23 16:09> Lab Results 12/12/23 12/12/23 12/12/23 Range/Units 22:30 22:45 22:45 WBC 23.98 H (4.50-11.00) K/uL RBC 3.98 L (4.00-5.20) m/uL Hgb 11.8 L (12.0-16.0) gm/dL Hct 35.9 (33.0-51.0) % MCV 90 (80-100) fL MCH 30 (26-34) pg MCHC 33 (32-36) gm/dL RDW Coeff of Lisbet 13.1 (11.5-15.5) % Plt Count 252 (140-440) K/uL Neut % (Auto) 91.9 H (42.0-72.0) % Lymph % (Auto) 2.8 L (20-44) % [place] % (Auto) 4.2 (0.0-11.0) % Eos % (Auto) 0.0 (0.0-7.0) % Baso % (Auto) 0.1 (0.0-3.0) % Neut # (Auto) 22.00 H (1.7-7.0) K/uL Lymph # (Auto) 0.70 L (0.90-2.90) K/uL [place] # (Auto) 1.00 H (0.00-0.90) K/UL Eos # (Auto) 0.00 (0.00-0.50) K/uL Baso # (Auto) 0.00 (0.00-0.30) K/uL Abs Immat Gran (auto) 0.20 (0.00-0.30) K/uL Imm/Tot Granulo (auto) 1.0 % Sodium 134 L (135-149) mmol/L Potassium 4.1 (3.6-5.1) mmol/L Chloride 102 (96-114) mmol/L Carbon Dioxide 19 L (20-32) mmol/L Anion Gap 13 (7-15) mEq/L BUN 20 (7-30) mg/dL Creatinine 0.7 (0.5-1.5) mg/dL Estimated Creat Clear 29.54 Estimated GFR 85 ml/min Glucose 279 H (60-115) mg/dL Lactate (0.5-1.9) mmol/L Calcium 9.6 (8.4-10.6) mg/dL Magnesium 1.8 Cancelled (1.5-2.6) mg/dL Total Bilirubin 4.5 H (0.1-1.5) mg/dL AST 274 H (12-35) U/L ALT 187 H (4-35) U/L Alkaline Phosphatase 151 H (40-150) U/L Troponin I < 0.01 L (0.01-0.04) ng/mL Total Protein (6.0-8.3) g/dL Albumin (3.3-5.0) g/dL Lipase (23-300) U/L Urine Color Yellow (Yellow) Urine Appearance Cloudy A (Clear) Urine pH 6.5 (5.0-8.5) Ur Specific [place] 1.015 (1.000-1.030) Urine Protein 2+ A (Negative) Urine Glucose (UA) Trace A (Negative) Urine Ketones Trace A (Negative) Urine Blood 2+ A (Negative) Urine Nitrite Negative (Negative) Urine Bilirubin 2+ A (Negative) Urine Urobilinogen 1.0 (0.2-1.0) Ur Leukocyte Esterase Negative (Negative) Urine RBC 0-2 (0-2) Urine WBC 2-5 (0-5) Ur Squamous Epith Cells Few (None-Few) Urine Bacteria Many A (None) SARS-CoV-2 (PCR) (Negative) Influenza Type A (PCR) (Negative) Influenza Type B (PCR) (Negative) RSV (PCR) (Negative) POC Creatinine (0.6-1.3) mg/dl 12/12/23 12/12/23 12/12/23 Range/Units 22:45 23:05 23:35 WBC (4.50-11.00) K/uL RBC (4.00-5.20) m/uL Hgb (12.0-16.0) gm/dL Hct (33.0-51.0) % MCV (80-100) fL MCH (26-34) pg MCHC (32-36) gm/dL RDW Coeff of Lisbet (11.5-15.5) % Plt Count (140-440) K/uL Neut % (Auto) (42.0-72.0) % Lymph % (Auto) (20-44) % [place] % (Auto) (0.0-11.0) % Eos % (Auto) (0.0-7.0) % Baso % (Auto) (0.0-3.0) % Neut # (Auto) (1.7-7.0) K/uL Lymph # (Auto) (0.90-2.90) K/uL [place] # (Auto) (0.00-0.90) K/UL Eos # (Auto) (0.00-0.50) K/uL Baso # (Auto) (0.00-0.30) K/uL Abs Immat Gran (auto) (0.00-0.30) K/uL Imm/Tot Granulo (auto) % Sodium (135-149) mmol/L Potassium (3.6-5.1) mmol/L Chloride (96-114) mmol/L Carbon Dioxide (20-32) mmol/L Anion Gap (7-15) mEq/L BUN (7-30) mg/dL Creatinine (0.5-1.5) mg/dL Estimated Creat Clear Estimated GFR ml/min Glucose (60-115) mg/dL Lactate 3.3 H (0.5-1.9) mmol/L Calcium (8.4-10.6) mg/dL Magnesium (1.5-2.6) mg/dL Total Bilirubin (0.1-1.5) mg/dL AST (12-35) U/L ALT (4-35) U/L Alkaline Phosphatase (40-150) U/L Troponin I Cancelled (0.01-0.04) ng/mL Total Protein 7.7 (6.0-8.3) g/dL Albumin 4.3 (3.3-5.0) g/dL Lipase 54 (23-300) U/L Urine Color (Yellow) Urine Appearance (Clear) Urine pH (5.0-8.5) Ur Specific [place] (1.000-1.030) Urine Protein (Negative) Urine Glucose (UA) (Negative) Urine Ketones (Negative) Urine Blood (Negative) Urine Nitrite (Negative) Urine Bilirubin (Negative) Urine Urobilinogen (0.2-1.0) Ur Leukocyte Esterase (Negative) Urine RBC (0-2) Urine WBC (0-5) Ur Squamous Epith Cells (None-Few) Urine Bacteria (None) SARS-CoV-2 (PCR) Negative SARS-CoV-2 (Negative) Influenza Type A (PCR) Negative PCR FLU A (Negative) Influenza Type B (PCR) Negative PCR FLU B (Negative) RSV (PCR) Negative PCR RSV (Negative) POC Creatinine 0.3 L (0.6-1.3) mg/dl 12/13/23 Range/Units 01:45 WBC (4.50-11.00) K/uL RBC (4.00-5.20) m/uL Hgb (12.0-16.0) gm/dL Hct (33.0-51.0) % MCV (80-100) fL MCH (26-34) pg MCHC (32-36) gm/dL RDW Coeff of Lisbet (11.5-15.5) % Plt Count (140-440) K/uL Neut % (Auto) (42.0-72.0) % Lymph % (Auto) (20-44) % [place] % (Auto) (0.0-11.0) % Eos % (Auto) (0.0-7.0) % Baso % (Auto) (0.0-3.0) % Neut # (Auto) (1.7-7.0) K/uL Lymph # (Auto) (0.90-2.90) K/uL [place] # (Auto) (0.00-0.90) K/UL Eos # (Auto) (0.00-0.50) K/uL Baso # (Auto) (0.00-0.30) K/uL Abs Immat Gran (auto) (0.00-0.30) K/uL Imm/Tot Granulo (auto) % Sodium (135-149) mmol/L Potassium (3.6-5.1) mmol/L Chloride (96-114) mmol/L Carbon Dioxide (20-32) mmol/L Anion Gap (7-15) mEq/L BUN (7-30) mg/dL Creatinine (0.5-1.5) mg/dL Estimated Creat Clear Estimated GFR ml/min Glucose (60-115) mg/dL Lactate 2.6 H (0.5-1.9) mmol/L Calcium (8.4-10.6) mg/dL Magnesium (1.5-2.6) mg/dL Total Bilirubin (0.1-1.5) mg/dL AST (12-35) U/L ALT (4-35) U/L Alkaline Phosphatase (40-150) U/L Troponin I (0.01-0.04) ng/mL Total Protein (6.0-8.3) g/dL Albumin (3.3-5.0) g/dL Lipase (23-300) U/L Urine Color (Yellow) Urine Appearance (Clear) Urine pH (5.0-8.5) Ur Specific [place] (1.000-1.030) Urine Protein (Negative) Urine Glucose (UA) (Negative) Urine Ketones (Negative) Urine Blood (Negative) Urine Nitrite (Negative) Urine Bilirubin (Negative) Urine Urobilinogen (0.2-1.0) Ur Leukocyte Esterase (Negative) Urine RBC (0-2) Urine WBC (0-5) Ur Squamous Epith Cells (None-Few) Urine Bacteria (None) SARS-CoV-2 (PCR) (Negative) Influenza Type A (PCR) (Negative) Influenza Type B (PCR) (Negative) RSV (PCR) (Negative) POC Creatinine (0.6-1.3) mg/dl <Hyacinth Ventura MD - Last Filed: 12/13/23 01:57> Imaging Data CT scan - head: Attestation: I have reviewed the pertinent imaging results. <Hyacinth Ventura MD - Last Filed: 12/13/23 01:57> Radiologist's impression: Patient: ZULMA MEDINA Facility:?[facility] [place] Patient ID:?[id number] Site Patient ID:?[id number]. Site :?[id number] Study:?CT-Head W/O-12/13/2023 12:40:35 AM Ordering Physician:PATSY Final Report: INDICATION: TIA, slurred speech. TECHNIQUE: CT head without contrast. COMPARISON: 10/09/2023. FINDINGS: CSF spaces: Proportionate prominence of the ventricles and sulci, reflecting moderate generalized cerebral volume loss. Brain parenchyma: The hill-white differentiation is maintained. Patchy white matter low attenuation changes, nonspecific but likely reflecting chronic small vessel ischemic disease. No sign of mass, hemorrhage, or midline shift. Atherosclerotic calcifications of the cavernous carotids and carotid siphons. Skull base and calvarium: The visualized paranasal sinuses and mastoid air cells demonstrate no acute or significant findings. Bilateral lens thinning. No skull fractures. IMPRESSION: No acute intracranial abnormality. Please note that all CT scans at this facility use dose modulation, iterative reconstruction, and/or weight-based dosing when appropriate to reduce radiation dose to as low as reasonably achievable. Dictated by Fracisco Miller MD @ 12/13/2023 12:53:24 AM (Electronic Signature) <Hyacinth Ventura MD - Last Filed: 12/13/23 01:57> CT Chest/Ab/Pelvis: Attestation: I have reviewed the pertinent imaging results. <Hyacinth Ventura MD - Last Filed: 12/13/23 01:57> Radiologist's impression: Patient: ZULMA MEDINA Facility:?[facility] [place] Patient ID:?[id number] Site Patient ID:?[id number]. Site :?[id number] Study:?CT-Chest/Abd/Pelvis W/ISOVUE 370 95CC-12/13/2023 12:59:14 AM Ordering Physician:PATSY Final Report: INDICATION: Sepsis, common bile duct stricture seen this morning on CT- DONE AT [place]. TECHNIQUE: CT chest, abdomen and pelvis acquired with 95 cc of Isovue 370 IV contrast. COMPARISON: CT chest, abdomen, and pelvis 11/13/2023 FINDINGS: CHEST: Cardiovascular structures: Heart size is normal. Thoracic aorta and main pulmonary artery are normal in caliber. Coronary artery and thoracic aorta atherosclerotic calcification. Mediastinum and scott: No mass or adenopathy. Lungs and pleura: Mild dependent lower lobe atelectasis. No consolidation, pleural effusion, or pneumothorax. No suspicious nodule. Chest wall and axilla: No mass or adenopathy. Bones: No suspicious bone lesions. Unremarkable for age. ABDOMEN AND PELVIS: Liver: Unremarkable. Gallbladder and bile ducts: Mild intrahepatic biliary ductal dilatation. There is dilatation of the common bile duct up to 12 mm with diffuse mural enhancement. The gallbladder is not clearly visualized, possibly contracted. Pancreas: Unremarkable. Spleen: Unremarkable. Adrenal glands: 1 cm right adrenal nodule, unchanged. Kidneys: Unremarkable. GI tract: Small hiatal hernia. No bowel obstruction. Normal appendix. Vascular structures: Normal caliber abdominal aorta with severe atherosclerotic calcification. Lymph nodes: Unremarkable. Miscellaneous: Unremarkable. No free air or significant free fluid. Pelvic Organs: Unremarkable. Bones: Bilateral total hip arthroplasties. Otherwise, unremarkable for age. IMPRESSION: 1. Dilated common bile duct up to 12 mm with associated mild intrahepatic biliary ductal dilatation. Diffuse mural enhancement of the common bile duct. Findings are concerning for ascending cholangitis. No obstructing lesion visualized in the distal common bile duct, which raises the possibility of a stricture or nonvisualized stone or other mass lesion. 2. No acute findings in the chest. Please note that all CT scans at this facility use dose modulation, iterative reconstruction, and/or weight-based dosing when appropriate to reduce radiation dose to as low as reasonably achievable. Dictated by Wero Bey MD @ 12/13/2023 1:15:27 AM (Electronic Signature) <Hyacinth Ventura MD - Last Filed: 12/13/23 01:57> CT- Other: Attestation: I have reviewed the pertinent imaging results. <Hyacinth Ventura MD - Last Filed: 12/13/23 01:57> Radiologist's impression: Patient: ZULMA MEDINA Facility:?[facility] [place] Patient ID:?[id number] Site Patient ID:?[id number]. Site :?1940 Study:?CT-Head Angio W/ISOVUE 370 95CC-12/13/2023 12:43:09 AM Ordering Physician:PATSY Preliminary Report: COMPARISON: 01/03/2023. IMPRESSION: CTA head: No sign of large vessel occlusion or significant aneurysm. Intracranial atherosclerotic disease. CTA neck: No sign of dissection. Improved caliber of the proximal left ICA, likely interval carotid endarterectomy. Atherosclerotic disease with mild narrowing of the proximal right ICA. Moderate narrowing of the right vertebral artery origin. Otherwise patent cervical vertebral arteries. Dictated by Fracisco Miller MD @ 12/13/2023 1:01:34 AM Read by:?Fracisco Miller MD @12/13/2023 1:01:41 AM <Hyacinth Ventura MD - Last Filed: 12/13/23 01:57> ECG Data Attestation: I personally reviewed and interpreted this ECG as follows: <Jam Hensley DO - Last Filed: 12/13/23 16:09> Prior ECG tracings: available for review <Jam Hensley DO - Last Filed: 12/13/23 16:09> Interpretation: Normal sinus rhythm with a rate of 97 beats per minute, normal intervals, normal axis, no ST or T-wave abnormalities. Appears similar to previous EKG on file <Jam Hensley DO - Last Filed: 12/13/23 16:09> Discharge Plan Discharge Clinical Impression: Ascending cholangitis <Jam Hensley DO - Last Filed: 12/13/23 16:09> Patient Disposition: [facility] <Jam Hensley DO - Last Filed: 12/13/23 16:09> Condition: Stable <Jam Hensley DO - Last Filed: 12/13/23 16:09> Prescriptions: No Action cholecalciferol (vitamin D3) 25 mcg (1,000 unit) capsule 1,000 unit PO DAILY (DME) FreeStyle Barbie 3 Sensor Device See Rx Instructions .Route Qty: 1 0RF Rx Instructions: As directed (DME) FreeStyle Barbie 14 Day [place] Misc See Rx Instructions .Route Qty: 1 0RF Rx Instructions: As directed (DME) FreeStyle Barbie 2 Sensor Kit See Rx Instructions .Route Qty: 2 11RF Rx Instructions: As directed triamcinolone acetonide 0.5 % cream 1 applic topical BID PRN vitamin B complex Tablet 1 tab PO QDAY a lipoic [id number] 125 mg-95 mcg- 250 mg capsule PO DAILY Rx Instructions: unsure of strength AZO D-Mannose 500 mg capsule See Rx Instructions PO .COMPLEX Rx Instructions: 2 tabs daily Estring 2 mg (7.5 mcg /24 hour) ring 1 vag ring vaginal [id number] 90 Days Qty: 1 3RF clopidogrel [Plavix] 75 mg tablet 75 mg PO QDAY 90 Days Qty: 90 3RF atorvastatin [Lipitor] 20 mg tablet 20 mg PO QHS 90 Days Qty: 90 3RF aspirin [Adult Aspirin Regimen] 81 mg tablet,delayed release (DR/EC) 81 mg PO QDAY 90 Days Qty: 90 3RF nitrofurantoin macrocrystal 50 mg capsule 50 mg PO Q24H 90 Days Qty: 90 3RF glipizide 5 mg tablet 5 mg PO QDAY Qty: 90 3RF Rx Instructions: 5 mg in the am and 2.5 mg in the pm glipizide 2.5 mg tablet 2.5 mg PO QDAY Qty: 90 3RF Rx Instructions: 5 mg in the AM and 2.5 mg in the PM <Jam Hensley DO - Last Filed: 12/13/23 16:09> Stand Alone Forms: [facility] Info Instructions <Jam Hensley DO - Last Filed: 12/13/23 16:09>
[2023-12-13] VITALS (9 sets, daily range): BP systolic 104–123; BP diastolic 63–76; PULSE 88–94; RESP 16–18; TEMP 37.3; O2SAT 92–97
--- NOTE | 2023-12-13 00:01 | CT_ITS ---
Patient: ZULMA MEDINA Facility:?[facility] Patient ID:?[id number] Site Patient ID:?[id number]. Site :?[id number] Study:?CT-Chest/Abd/Pelvis W/ISOVUE 370 95CC-12/13/2023 12:59:14 AM Ordering Physician:PATSY Final Report: INDICATION: Sepsis, common bile duct stricture seen this morning on CT- DONE AT [place]. TECHNIQUE: CT chest, abdomen and pelvis acquired with 95 cc of Isovue 370 IV contrast. COMPARISON: CT chest, abdomen, and pelvis 11/13/2023 FINDINGS: CHEST: Cardiovascular structures: Heart size is normal. Thoracic aorta and main pulmonary artery are normal in caliber. Coronary artery and thoracic aorta atherosclerotic calcification. Mediastinum and scott: No mass or adenopathy. Lungs and pleura: Mild dependent lower lobe atelectasis. No consolidation, pleural effusion, or pneumothorax. No suspicious nodule. Chest wall and axilla: No mass or adenopathy. Bones: No suspicious bone lesions. Unremarkable for age. ABDOMEN AND PELVIS: Liver: Unremarkable. Gallbladder and bile ducts: Mild intrahepatic biliary ductal dilatation. There is dilatation of the common bile duct up to 12 mm with diffuse mural enhancement. The gallbladder is not clearly visualized, possibly contracted. Pancreas: Unremarkable. Spleen: Unremarkable. Adrenal glands: 1 cm right adrenal nodule, unchanged. Kidneys: Unremarkable. GI tract: Small hiatal hernia. No bowel obstruction. Normal appendix. Vascular structures: Normal caliber abdominal aorta with severe atherosclerotic calcification. Lymph nodes: Unremarkable. Miscellaneous: Unremarkable. No free air or significant free fluid. Pelvic Organs: Unremarkable. Bones: Bilateral total hip arthroplasties. Otherwise, unremarkable for age. IMPRESSION: 1. Dilated common bile duct up to 12 mm with associated mild intrahepatic biliary ductal dilatation. Diffuse mural enhancement of the common bile duct. Findings are concerning for ascending cholangitis. No obstructing lesion visualized in the distal common bile duct, which raises the possibility of a stricture or nonvisualized stone or other mass lesion. 2. No acute findings in the chest. Please note that all CT scans at this facility use dose modulation, iterative reconstruction, and/or weight-based dosing when appropriate to reduce radiation dose to as low as reasonably achievable. Dictated by Wero Bey MD @ 12/13/2023 1:15:27 AM Signed by:?Wero Bey MD @12/13/2023 1:15:27 AM (Electronic Signature)
[2023-12-13] MEDS: cefTRIAXone 1 GM in 0.9 % SODIUM CHLORIDE Mini-bag 100 ML IVPB (00:23)
[2023-12-13] MEDS: 0.9 % SODIUM CHLORIDE 1000 ml 1,000 ML IV (00:23)
[2023-12-13] MEDS: metroNIDAZOLE 500 MG/100 ML PIGGYBACK 100 MG IVPB (00:44)
[2023-12-13] MEDS: 0.9 % SODIUM CHLORIDE 500 ML 500 ML 1000 ML IV (00:44)
[2023-12-13 01:49] LABS: Lactate Sepsis 2 Hour 2.6 mmol/L (0.5-1.9)
== END 2023-12-13 02:53 | disposition short-term general hospital (02) ==
PROVIDERS: Emergency Provider Student in an Organized Health Care Education/Training Program; PCP Nurse Practitioner Family
DX: K83.09 Other cholangitis (principal)
CPT/HCPCS: 36415; 70450; 70496; 70498; 71260; 74177; 80053; 81001; 82565; 83605; 83690; 83735; 84484; 85025; 87040; 87086; 87186; 87631; 96365; 96366; 99284; 99285; J0696; J1836; J7030; Q9967

== ENCOUNTER 2023-12-13 02:37 | Outpatient (CLI) | payer MEDICARE, SELFPAY ==
--- OUTSIDE RECORDS SUMMARY | 2023-12-18 17:53 | XMS_ITS | Referral Summary ---
Author Name Unknown Organization [facility] Address [address] [place] [address] Care Team Providers Care Paving Bed Maker Name Role Phone Unavailable Primary Care Provider Unavailabl e Source Comments Patient records contain information from all sites at [facility]. For routine questions regarding patient records, call [phone] during business hours, M-F 8:00 AM - 5:00 PM Central Time. Record requests for emergency care only can be directed to [phone] at any time.[facility] Encounters Date Type Department Care Team Description 12/13/2023 4:12 AM CDT - 12/15/2023 1:09 PM CDT Hospital Encounter [facility], [facility] Fourth Floor [address] [place] [phone] Naun Moore M.B., Ch.B. Vipul Caraballo M.D. Discharge Disposition: Home or Self Care 12/13/2023 1:10 PM CDT Ancillary Procedure Department of Gastroenterology 12/13/2023 12:41 PM CDT - 12/13/2023 11:59 PM CDT Hospital Encounter Department of Radiology, [facility], in [place], [place] [address] [place] [phone] Malka Montero M.D. Discharge Disposition: Home or Self Care 12/13/2023 1:12 PM CDT Anesthesia Event Division of Gastroenterology in [address] [phone] Yolis Bonilla Mary, M.B., B.Ch., B.A.O. 12/13/2023 5:35 AM CDT Ancillary Procedure Department of Radiology in [address] [phone] Vahid Kaplan M.D. 12/13/[address] [facility] TRAN[facility] 12/12/2023 Clinical Communication Division of Gastroenterology in [address] [phone] Prescheduling, Provider 12/12/2023 10:26 AM CDT - 12/12/2023 11:33 AM CDT Hospital Encounter Department of Laboratory Medicine and Pathology, [facility] in [address] [phone] Calvin Bailey M.D. Mass Pancreas Discharge Disposition: Home or Self Care 12/12/2023 11:34 AM CDT - 12/12/2023 11:59 PM CDT Hospital Encounter Department of Radiology, [facility] in [address] [phone] Calvin Bailey M.D. Mass Pancreas Discharge Disposition: Home or Self Care 12/04/2023 Patient Outreach Department of Oncology in [address] [phone] Dariela Palmer R.N. 11/30/2023 9:20 AM CDT Telemedicine Division of Gastroenterology in [address] [phone] Deyanira García, R.Heriberto. Mass Pancreas (Primary Dx) 11/29/2023 10:00 AM CDT Clinical Communication Virtual Review in [address] [phone] Pre-visit Intake 11/23/2023 Clinical Communication Division of Gastroenterology in [address] [phone] Provider, Unknown Pre-visit Intake; [facility] ([facility]/) 11/16/[address] [address] Audra Doss C.NHerbertP. Abnormal Findings On Diagnostic Imaging Of Other Abdominal Regions Including Retroperitoneum (Primary Dx) 11/03/2023 Clinical Communication Department of Urology in [address] [phone] Alejandra Souza P.A.-C. Communication 10/19/2023 Orders Only Department of Urology in [address] [phone] Alejandra Souza P.A.-C. 10/18/2023 2:30 PM INSPECTOR ELECTROMECHANICAL Comprehensive Visit Department of Urology in [address] [phone] Alejandra Souza P.A.-C. Cystitis Recurrent (Primary Dx); Urinary Tract Infection Site Not Specified; Dysfunction Voiding Discharge Disposition: Home or Self Care 10/17/2023 [facility] AND [address] [address] Audra Doss C.NMj Urinary Tract Infection (UTI)/Bacteriuria NOS (Primary Dx) 10/02/2023 Clinical Communication Department of Ophthalmology in [address] [phone] Mauri Farrell M.D. from Last 3 Months Allergies Active Allergy Reactions Criticality Noted Date Comments Ampicillin Itching Medium 10/28/2014 Sulfamethoxazole-Trimethoprim Rash 2021 Tramadol Itching Medium 11/06/2012 Medications Medication Sig Dispensed Refills Start Date End Date Status acetaminophen (TYLENOL) 325 mg tablet Take 650 mg by mouth every 6 (six) hours as needed for pain. 01/20/2023 Active atorvastatin (LIPITOR) 20 mg tablet Take 1 tablet by mouth daily with dinner. 01/05/2023 Active blood sugar diagnostic strips (Contour Next Test Strips) Dispense item covered by pt ins.TEST 3 TIMES DAILY. 02/24/2021 Active glipiZIDE (GLUCOTROL) 5 mg tablet Take 2.5-5 mg by mouth 2 (two) times a day before breakfast and dinner. 5 mg in the morning and 2.5 mg in the evening 10/08/2021 Active flash glucose scanning reader (FreeStyle Barbie 14 Day [place]) by other route. 08/25/2022 Active B complex-vitamin (SUPER B-50) capsule Take 1 tablet by mouth daily. 11/02/2023 Active A LIPOIC CUEZ-EMLUDX-QGS BERINE ORAL Take by mouth daily. 11/02/2023 Active flash glucose scanning reader (FREESTYLE BARBIE) by other route. 08/25/2022 Active flash glucose sensor (FREESTYLE BARBIE) kit by other route. 04/25/[address] tablet Take 81 mg by mouth daily. Active cholecalciferol , vitamin D3, 25 mcg (1,000 Unit) tablet Take 25 mcg by mouth daily. Active d-mannose (AZO D-Mannose) 500 mg capsule Take 2 capsules by mouth daily. Active nitrofurantoin (MACRODANTIN) 50 mg capsule Take 50 mg by mouth daily. UTI prevention Active ciprofloxacin (CIPRO) 500 mg tabletIndicatio ns:Intra-abdomi nal infection, community acquired Take 1 tablet (500 mg total) by mouth 2 (two) times a day before breakfast and dinner for 9 doses Indications: Intra-abdominal infection, community acquired. 9 tablet 12/15/2023 4 Active clopidogreL (Plavix) 75 mg tablet Take 1 tablet (75 mg total) by mouth daily for 23 days. 23 tablet 12/15/2023 4 Active metroNIDAZOLE (FLAGYL) 500 mg tabletIndicatio ns:Intra-abdomi nal infection, community acquired Take 1 tablet (500 mg total) by mouth 3 (three) times a day for 4 days Indications: Intra-abdominal infection, community acquired. 12 tablet 12/15/2023 4 Active sennosides-docu sate sodium (SENOKOT-S) 8.6-50 mg per tablet Take 1 tablet by mouth 2 (two) times a day. 30 tablet 1 12/15/2023 Active glipiZIDE (GLUCOTROL) 10 mg tablet Take 10 mg by mouth. 10/20/2017 4 Discontinued ubiquinone (COENZYME Q10) 100 mg tablet Take by mouth. 07/02/2013 4 Discontinued OMEGA-3 FATTY ACIDS-EPA ORAL Take 1 capsule by mouth. 06/06/2012 4 Discontinued ketorolac (ACULAR) 0.5 % ophthalmic solution Administer 1 drop into the left eye 4 (four) times a day. Start 2 days piror to surgery and use until empty 5 mL 1 06/11/2018 4 Discontinued ketorolac (ACULAR) 0.5 % ophthalmic solution Administer 1 drop into the right eye 4 (four) times a day. Start 2 days piror to surgery and use until empty 5 mL 1 06/02/2018 4 Discontinued prednisoLONE acetate (PRED FORTE) 1 % ophthalmic suspension Administer 1 drop into the right eye 4 (four) times a day. Start 2 days prior to surgery and use for at least 30 days 10 mL 06/11/2018 4 Discontinued prednisoLONE acetate (PRED FORTE) 1 % ophthalmic suspension Administer 1 drop into the left eye 4 (four) times a day. Start 2 days prior to surgery and use for 30 days following. 10 mL 1 06/11/2018 4 Discontinued moxifloxacin (VIGAMOX) 0.5 % ophthalmic solution Administer 1 drop into the left eye 4 (four) times a day. Start 2 days prior to surgery. Use until bottle is empty 3 mL 1 06/11/2018 4 Discontinued moxifloxacin (VIGAMOX) 0.5 % ophthalmic solution Administer 1 drop into the right eye 4 (four) times a day. Start 2 days prior to surgery and use until empty 3 mL 1 06/02/2018 4 Discontinued metFORMIN (GLUCOPHAGE) 500 mg tablet Take 500 mg by mouth. 05/14/2018 4 Discontinued pravastatin (PRAVACHOL) 20 mg tablet Take 20 mg by mouth. 05/29/2018 [address] Discontinued aspirin [address] tablet Take 1 tablet by mouth daily. 01/06/2023 4 Discontinued clopidogreL (PLAVIX) 75 mg tablet Take 1 tablet by mouth daily. 01/05/2023 4 Discontinued(Sto p Taking at Discharge) nitrofurantoin (MACRODANTIN) 50 mg capsule Take 50 mg by mouth daily. 4 Discontinued sennosides-docu sate sodium (SENOKOT-S) 8.6-50 mg per tablet Take 1-4 tablets by mouth. 01/20/2023 4 Discontinued estradioL (Estrace) 0.1 mg/g (0.01%) vaginal cream by other route. 09/22/2022 4 Discontinued flash glucose sensor (FREESTYLE BARBIE) kit by other route. 08/25/2022 4 Discontinued blood-glucose sensor (FreeStyle Barbie 3 Sensor) device by other route. 08/25/2022 4 Discontinued estradioL (ESTRACE) 0.1 mg/g (0.01%) vaginal cream Apply dime-sized amount to the external urethra 3 nights weekly. No need for vaginal applicator or insertion 42.5 g 5 10/18/2023 4 Discontinued cholecalciferol (REPLESTA) 1,250 mcg (50,000 unit) wafer Take 1,000 Units by mouth. 01/30/2023 4 Discontinued aspirin 81 mg capsule Take 81 mg by mouth daily. 03/16/2023 4 Discontinued blood-glucose sensor (FreeStyle Barbie 3 Sensor) device by other route. 08/25/2022 4 Discontinued estradioL (ESTRING) 2 mg (7.5 mcg /24 hour) vaginal ring by other route. 11/06/2023 4 Discontinued clopidogreL (Plavix) 75 mg tablet Take 75 mg by mouth. 01/28/2023 4 Discontinued nitrofurantoin (MACRODANTIN) 25 mg capsule Take 50 mg by mouth. 09/08/2023 4 Discontinued triamcinolone (KENALOG) 0.025 % cream Apply topically. 11/02/2023 4 Discontinued d-mannose 500 mg capsule Take by mouth. 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 Cholangitis Acute 12/13/2023 Diabetes Mellitus Type 2 Without Complication Cataract Senile Nuclear Sclerosis Right 04/20/20 Overview: Added automatically from request for surgery [id number] Cataract Senile Nuclear Sclerosis Left 8 Overview: Added automatically from request for surgery [id number] Resolved Problems Problem Noted Date Diagnosed Date Resolved Date Stone Common Duct 12/13/2023 12/13/2023 Social History Tobacco Use Types Packs/Day Years Used Date Smoking Tobacco: Never Smokeless Tobacco: Never Tobacco Cessation:Counseling Given: Not Answered Alcohol Use Standard Drinks/Week Comments No 0 (1 standard drink = 0.6 oz pur e alcohol) [facility] Utilities Answer Date Recorded In the past 12 months has e [employer], gas, oil, or water [employer] threatened to shut off services in your home? No 12/13/2023 Humiliation, Afraid, Rape, and Kick questionnair e Answer Date Recorded Within the last year, have y ou been afraid of your partner or ex-partner? No 12/13/2023 Within the last year, have y ou been humiliated or emotionally abused in other ways by your partner or ex-partner? No Within the last year, have y ou been kicked, hit, slapped, or otherwise physically hurt by your partner or ex-partner? No 12/13/2023 Within the last year, have y ou been raped or forced to have any kind of sexual activity by your partner or ex-partner? No 12/13/2023 Exercise Vital Sign Answer Date Recorde d [...] the money to buy more. Never true 12/13/19 24 Within the past 12 months, t he food you bought just didn't last and you didn't have money to get more. Never true 12/13/2023 PRAPARE - Transportation Answer Date Re corded In the past 12 months, has l ack of transportation kept you from medical appointments or from getting medications? No 08/2023 In the past 12 months, has l ack of transportation kept you from meetings, work, or from getting things needed for daily living? No 12/13/2023 Nutrition Answer Date Recorded On average, how many serving s of [...] your living situation today? I have a [facility] place to live 12/13/2023 Sex and Gender Information Value Date Recorded Sex Assigned at Female 11/29/2023 7:47 PM CDT Gender Identity Female 11/29/2023 7:47 PM CDT Sexual Orientation Straight 11/29/2023 7: 47 PM CDT Last Filed Vital Signs Vital Sign Reading Time Taken Comments Blood Pressure 137/62 12/15/2023 12:25 PM CDT Pulse 67 12/15/2023 12:25 PM CDT Temperature 36.4 ??C (97.5 ??F) 12/15/2023 12:25 PM C DT Respiratory Rate 16 12/15/2023 12:25 PM CDT Oxygen Saturation 100% 12/15/2023 12:25 PM CDT Inhaled Oxygen Concentration - - Weight 55.6 kg (122 lb 9.2 oz) 12/13/2023 4:18 A M CDT Height 152.4 cm (5') 12/14/2023 3:09 PM CDT Body Mass Index 23.94 12/13/2023 4:18 AM CDT Plan of Treatment Upcoming Encounters Date Type Department Care Team (Latest Contact Info) Description 12/20/2023 8:00 AM CDT Comprehensive Visit Division of Gastroenterology in [place], [place] [address] [place] [phone] Audra Doss C.NHerbertP. [address] [place] [phone] [place] [phone] 12/29/2023 9:00 AM CDT Clinical Support Department of Nutrition and Diabetes Education in [place], [place] [address] [place] [address] Calvin Bailey M.D. [address] [place] [phone] Maricruz Ryan M.S., RDN, LD [address] [place] [phone] 01/15/2024 8:00 AM CDT Procedure visit Department of Urology in [place], [place] [address] [place] [phone] Alejandra Souza P.A.-C. [address] [place] [phone] Discharge Disposition: Home or Self Care 01/15/2024 11:45 AM CDT Appointment Division of Gastroenterology in [place], [place] [address] [place] [address] Calvin Bailey M.D. [address] [place] [phone] Medical Devices Implanted Type Area Architectural Inspector Device Identifier Shelf Expiration Date Model / Serial / Lot Stnt Ctt Otw 8.5f 9 - [id number] Implanted:Qty : 1 on 12/13/2023 by Matias Moss M.D., M.S. at [facility] Biliary Stent [employer] 06/28/2026 [id number] / / [id number] Hip Implant Hip Implant Bilater al: Hip Lens Tcn [id number] +25.0d - [id number] - [id number] Implanted:Qty : 1 on 06/04/2018 by Mauri Farrell M.D. at [facility] Ocular Lens [employer] (Previously ALONDRA) [id number] / [id number] / Lens Tcn [id number] Ant +26.0d - [id number] - [id number] Implanted:Qty : 1 on 06/13/2018 by Mauri Farrell M.D. at [facility] Ocular Lens Left: Eye [employer] (Previously ALONDRA) [id number] 12/07/2021 [id number] / [id number] / Procedures Procedure Name Priority Date/Time Associated Diagnosis Comments GLUCOSE POCT, B Routine 12/15/2023 11:46 AM CDT GLUCOSE POCT, B Routine 12/15/2023 7:38 AM CDT GLUCOSE POCT, B Routine 12/14/2023 8:35 PM CDT GLUCOSE POCT, B Routine 12/14/2023 6:05 PM CDT GLUCOSE POCT, B Routine 12/14/2023 1:33 PM CDT GLUCOSE POCT, B Routine 12/14/2023 9:51 AM CDT GLUCOSE POCT, B Routine 12/14/2023 8:27 AM CDT HEPATIC FUNCTION PANEL, S Routine 12/14/2023 8:20 AM CDT CBC WITH DIFFERENTIAL, B Routine 12/14/2023 7:20 AM CDT BASIC METABOLIC PANEL, S/P Routine 12/14/2023 7:20 AM CDT GLUCOSE POCT, B Routine 12/13/2023 8:38 PM CDT MICROSCOPIC MANUAL Routine 12/13/2023 6: 24 PM CDT DIPSTICK, U Routine 12/13/2023 6:24 PM CDT OSMOLALITY, U Routine 12/13/2023 6:24 PM CDT PH, U Routine 12/13/2023 6:24 PM CDT URINALYSIS WITH MICROSCOPIC Routine 12/13/2023 6:24 PM CDT BACTERIAL CULTURE, AEROBIC + SUSC, URINE Routine 12/13/2023 6:24 PM CDT GLUCOSE POCT, B Routine 12/13/2023 4:04 PM CDT GLUCOSE POCT, B Routine 12/13/2023 2:33 PM CDT FL FLUORO LESS THAN 1 HOUR RAD - Routine (most inpatients and all outpatients) 12/13/2023 2:05 PM CDT LDA ANE ENDOTRACHEAL AIRWAY Routine 12/13/2023 1:23 PM CDT GASTROENTEROLOGY IMAGE EXAM Routine 12/13/2023 1:10 PM CDT ERCP Routine 12/13/2023 1:09 PM CDT ERCP Routine 12/13/2023 1:09 PM CDT GLUCOSE POCT, B Routine 12/13/2023 12:47 PM CDT GLUCOSE POCT, B Routine 12/13/2023 11:29 AM CDT GLUCOSE POCT, B Routine 12/13/2023 9:17 AM CDT LACTATE, B/P Timed 12/13/2023 8:44 AM CDT US GALLBLADDER AND OR BILIARY DUCTS RAD - Semiurgent (Fast; most ED patients; some inpatients) 12/13/2023 6:46 AM CDT INTERPRETATION OF OUTSIDE CT ABDOMEN AND OR PELVIS RAD - Routine (most inpatients and all outpatients) 12/13/2023 6:14 AM CDT BACTERIA / WINDY CULTURE, BLOOD STAT 12/13/2023 5:56 AM CDT CYSTATIN C WITH EGFR STAT 12/13/2023 5:55 AM CDT LACTATE FOR SEPSIS WITH REFLEX STAT 12/13/2023 5:55 AM CDT PROTHROMBIN TIME (PT), P STAT 12/13/2023 5:55 AM CDT HEPATIC FUNCTION PANEL, S STAT 12/13/2023 5:55 AM CDT PHOSPHORUS (INORGANIC), S STAT 12/13/2023 5:55 AM CDT MAGNESIUM, S STAT 12/13/2023 5:55 AM CDT BASIC METABOLIC PANEL, S/P STAT 12/13/2023 5:55 AM CDT CBC WITH DIFFERENTIAL, B STAT 12/13/2023 5:55 AM CDT BACTERIA / WINDY CULTURE, BLOOD STAT 12/13/2023 5:43 AM CDT LIPASE, S/P Routine 12/13/2023 5:[address] BODY Routine 12/12/2023 11:[address] NEURO Routine 12/12/2023 11:[address] NEURO Routine 12/12/2023 11:[address] PANCREAS ANGIOGRAM TRIPLE PHASE AND PELVIS WITH IV CONTRAST RAD - Routine (most inpatients and all outpatients) 12/12/2023 12:45 PM CDT Mass Pancreas HEMOGLOBIN A1C, B Routine 12/12/2023 10:43 AM CDT Mass Pancreas PROTHROMBIN TIME (PT), P Routine 12/12/2023 10:43 AM CDT Mass Pancreas PREALBUMIN (PAB), S Routine 12/12/2023 10:43 AM CDT Mass Pancreas CARBOHYDRATE AG 19-9 (CA 19-9), S Routine 12/12/2023 10:43 AM CDT Mass Pancreas BILIRUBIN DIRECT, S/P Routine 12/12/2023 10:43 AM CDT Mass Pancreas COMPREHENSIVE METABOLIC PANEL, S/P Routine 12/12/2023 10:43 AM CDT Mass Pancreas CBC WITH DIFFERENTIAL, B Routine 12/12/2023 10:43 AM CDT Mass Pancreas OUTSIDE CT BODY Routine 11/13/2023 11:20 AM CDT CYTOLOGY NON-PROGRAM MANAGEMENT MANAGER Routine 10/18/2023 4:12 PM INSPECTOR ELECTROMECHANICAL Cystitis Recurrent URINALYSIS WITH MICROSCOPIC Routine 10/18/2023 4:11 PM INSPECTOR ELECTROMECHANICAL Cystitis Recurrent BACTERIAL CULTURE, AEROBIC + SUSC, URINE Routine 10/18/2023 4:11 PM INSPECTOR ELECTROMECHANICAL Cystitis Recurrent from Last 3 Months Results * (ABNORMAL) Glucose, POCT (12/15/2023 11:46 AM CDT) Only the most recent of13 resultswithin the time period is included. Glucose, POCT, B 194(H) 70 - 140 mg/dL 12/15/2023 11:46 AM CDT PCLX Site Capillary 12/15/2023 11:46 AM CDT PCLX Last Intake 3-4 hours 12/15/2023 11:46 AM CDT PCLX Blood 12/15/2023 11:4 6 AM CDT 12/15/2023 11:46 AM CDT Unknown Provider LAB POCT ORDERABLES- MANUAL POC [facility] [address] [place] [address], [facility] PCLX [facility] POC [address] [place] [address] * (ABNORMAL) Hepatic Function Panel (12/14/2023 8:20 AM CDT) Only the most recent of2 resultswithin the time period is included. Bilirubin, Total, S 2.3(H) 0.0 - 1.2 mg/dL 12/14/2023 9:24 AM CDT DTL Bilirubin, Direct, S 2.1(H) 0.0 - 0.3 mg/dL 12/14/2023 9:24 AM CDT DTL Aspartate Aminotransferase (AST), S 111(H) 8 - 43 U/L 12/14/2023 9:24 AM CDT DTL Alanine Aminotransferase (ALT), S 107(H) 7 - 45 U/L 12/14/2023 9:24 AM CDT DTL Alkaline Phosphatase, S 130(H) 35 - 104 U/L 12/14/2023 9:24 AM CDT DTL Albumin, S 3.4(L) 3.5 - 5.0 g/dL 12/14/2023 9:24 AM CDT DTL Protein, Total, S 5.9(L) 6.3 - 7.9 g/dL 12/14/2023 9:24 AM CDT DTL Blood (Blood, Venous) 12/14/2023 8:20 AM CDT 12/14/2023 8:57 AM CDT Vipul Caraballo M.D. LAB BLOOD ADD-ON [facility] [address] [place] [address], [facility] DTL [facility] [address] [place] [address] * (ABNORMAL) CBC with Differential, Blood (12/14/2023 7:20 AM CDT) Only the most recent of3 resultswithin the time period is included. Hemoglobin 9.6(L) 11.6 - 15.0 g/dL 12/14/2023 8:03 AM CDT DTL Hematocrit 29.3(L) 35.5 - 44.9 % 12/14/2023 8:03 AM CDT DTL Erythrocytes 3.21(L) 3.92 - 5.13 x10(12)/L 12/14/2023 8:03 AM CDT DTL MCV 91.3 78.2 - 97.9 fL 12/14/2023 8:03 AM CDT DTL RBC Distrib Width 13.5 12.2 - 16.1 % 12/14/2023 8:03 AM CDT DTL Platelet Count 156(L) 157 - 371 x10(9)/L 12/14/2023 8:03 AM CDT DTL Leukocytes 8.1 3.4 - 9.6 x10(9)/L 12/14/2023 8:03 AM CDT DTL Neutrophils 6.02 1.56 - 6.45 x10(9)/L 12/14/2023 8:03 AM CDT DHPM Lymphocytes 0.87(L) 0.95 - 3.07 x10(9)/L 12/14/2023 8:03 AM CDT DTL Monocytes 0.61 0.26 - 0.81 x10(9)/L 12/14/2023 8:03 AM CDT DTL Eosinophils 0.57(H) 0.03 - 0.48 x10(9)/L 12/14/2023 8:03 AM CDT DTL Basophils 0.04 0.01 - 0.08 x10(9)/L 12/14/2023 8:03 AM CDT DTL Blood (Blood, Venous) 12/14/2023 7:20 AM CDT 12/14/2023 7:41 AM CDT Malka Montero M.D. LAB BLOOD ADD-ON [facility] [address] [place], [place] [address] DTL [facility] [address] [place] [address] [facility] [address] [place] [address] * (ABNORMAL) Basic Metabolic Panel (12/14/2023 7:20 AM CDT) Only the most recent of2 resultswithin the time period is included. [facility] Potassium, S 3.9 3.6 - 5.2 mmol/L 12/14/2023 8:29 AM CDT DTL Sodium, S 138 135 - 145 mmol/L 12/14/2023 8:29 AM CDT DTL Chloride, S 107 98 - 107 mmol/L 12/14/2023 8:29 AM CDT DTL Bicarbonate, S 20(L) 22 - 29 mmol/L 12/14/2023 8:29 AM CDT DTL Anion Gap 11 7 - 15 12/14/2023 8:29 AM CDT DTL BUN (Blood Urea Nitrogen), S 18 6 - 21 mg/dL 12/14/2023 8:29 AM CDT DTL Creatinine 0.81 0.59 - 1.04 mg/dL 12/14/2023 8:29 AM CDT DTL Estimated GFR (eGFR) 71 >=60 mL/min/BSA 12/14/2023 8:29 AM CDT DTL Comment: Estimated GFR calculated using the 2020 CKD_EPI creatinine equation. Calcium, Total, S 9.0 8.8 - 10.2 mg/dL 12/14/2023 8:29 AM CDT DTL Glucose, S 118 70 - 140 mg/dL 12/14/2023 8:29 AM CDT DTL Blood (Blood, Venous) 12/14/2023 7:20 AM CDT 12/14/2023 8:03 AM CDT Malka Montero M.D. LAB BLOOD ADD-ON [facility] [address] [place] [address], [facility] DTL [facility] [address] [place] [address] * (ABNORMAL) Dipstick, Urine (12/13/2023 6:24 PM CDT) Hemoglobin, QL, U Small(A) Negative 12/13/2023 6:58 PM CDT DTL Leukocyte Esterase, U Moderate(A) Negative 12/13/2023 6:58 PM CDT DTL Nitrite, U Negative Negative 12/13/2023 6:58 PM CDT DTL Ketone, U Negative Negative mg/dL 12/13/2023 6:58 PM CDT DTL Glucose, U Negative Negative mg/dL 12/13/2023 6:58 PM CDT DTL Urine 12/13/2023 6:24 PM CDT 12/13/2023 6:48 PM CDT Malka Montero M.D. LAB URINE ORDERABLES Performing Organization Address City/[facility] Co de Phone Number [facility] [address] [place] [address], [facility] [address] [place] [address] * (ABNORMAL) Microscopic Manual (12/13/2023 6:24 PM CDT) Microscopy Abnormal 12/13/2023 7:13 PM CDT DTL RBC <3 <3 /hpf 12/13/2023 7:13 PM CDT DTL WBC 11-20(A) /hpf 12/13/2023 7:13 PM CDT DTL Comment: ----REFERENCE VALUE---- <4 ??(Males) <11 (Females) Squamous Epithelial Cells, U 1-3 /hpf 12/13/2023 7:13 PM CDT DTL Urine 12/13/2023 6:24 PM CDT 12/13/2023 6:58 PM CDT Malka Montero M.D. LAB URINE ORDERABLES Performing Organization Address City/[facility]/ZIP Co de Phone Number [facility] [address] [place] [address], [facility] [address] [place] [address] * Bacterial Culture, Aerobic + Susceptibility, Urine (12/13/2023 6:24 PM CDT) Only the most recent of2 resultswithin the time period is included. Urine Culture No growth after 1 day of incubation. 12/15/2023 8:10 AM CDT DTL Urine (Urine, Midstream) 12/13/2023 6:24 PM CDT 12/13/2023 7:43 PM CDT Comment:Specimen Source Site : Urine Malka Montero M.D. LAB MICROBIOLOGY - G ENERAL ORDERABLES [facility] [address] [place], [place] [phone] [place] [address] [address] [place] [address] * pH, Urine (12/13/2023 6:24 PM CDT) pH, U 5.7 4.5 - 8.0 12/13/2023 7:1 0 PM CDT DT Urine 12/13/2023 6:24 PM CDT 12/13/2023 6:48 PM CDT Malka Montero M.D. LAB URINE ORDERABLES Performing Organization Address City/[facility]/ZIP Co de Phone Number [facility] [address] [place] [address], [facility] [address] [place] [address] * Osmolality, Urine (12/13/2023 6:24 PM CDT) Osmolality, U 399 150 - 1150 mOsm/kg 12/13/2023 7:10 PM CDT DT Urine 12/13/2023 6:24 PM CDT 12/13/2023 6:48 PM CDT Malka Montero M.D. LAB URINE ORDERABLES [facility] [address] [place] [address], [facility] [address] [place] [address] * (ABNORMAL) Urinalysis, with Microscopic: Urine, Midstream (12/13/2023 6:24 PM CDT) Only the most recent of2 resultswithin the time period is included. Source Urine, Urine, Midstream 12/13/2023 6:48 PM CDT DTL Color, U Yellow 12/13/2023 6:48 PM CDT DTL Clarity, U Clear 12/13/2023 6:48 PM CDT DTL Protein, U 48(H) <26 mg/dL 12/13/2023 7:32 PM CDT DTL Protein/Osmol ality 1.20(H) <0.42 ratio 12/13/2023 7:32 PM CDT DTL Predicted 24 HR Protein, U 791(H) <229 mg/24 h 12/13/2023 7:32 PM CDT DTL Predicted Range 195-3203 mg/24 h 12/13/2023 7:32 PM CDT DTL Urine (Urine, Midstream) 12/13/2023 6:24 PM CDT 12/13/2023 6:48 PM CDT Malka Montero M.D. LAB URINE ORDERABLES [facility] [address] [place] [address], [facility] [address] [place] [address] * [place] Fluoro Less Than 1 Hour (12/13/2023 2:05 PM CDT) Narrative ERCP LOS RST - 12/13/2023 2:06 PM CDT This exam does not require a radiologist review or interpretation. Please refer to the patient's medical record on this date for clinical details. Malka Montero M.D. IMG FLUOROSCOPY PROC EDURES ERCP LOS RST * LDA ANE ENDOTRACHEAL AIRWAY (12/13/2023 1:23 PM CDT) Narrative Amarjit Smith APRN, CRNA - 12/13/2023 1:23 PM CDT Amarjit Smith APRN, CRNA ? 12/13/2023 ??1:36 PM Airway Date/Time: 12/13/2023 1:23 PM Performed by: Amarjit Smith APRN, CRNA Authorized by: Amarjit Smith APRN, CRNA ?? Patient location during procedure: OR / Procedure Area PROCEDURE DETAILS: Mask difficulty assessment: easy mask Final airway type: video laryngoscope Laryngeal Manipulation: no ?? Final best view of glottic structures - Cormack/Lehane Score: grade 1 ETT location: oral VL device: glide scope [place] scope blade size: 3 Tube size: 7 ETT distance at teeth/gum: 20 Oral tube type: standard ETT Cuffed: yes Leak Test Performed: no ?? Number of attempt to successful placement: 1 Airway confirmation: bilateral breath sounds, positive ETCO2 and bilateral chest rise Other previous techniques attempted: none PRE PROCEDURE DETAILS: Pre evaluation for airway management: procedure Urgency: elective Preop assessment of probable difficulty: no difficulty anticipated Preoxygenation: bag valve mask SEDATION / ANESTHESIA Anesthesia method: anesthesia POST PROCEDURE DETAILS: ? Procedure outcome: successful ?? Notable Events: no complications Amarjit Smith APRN, CRNA ANESTHESIA ORDE NABILA * ERCP-Gastroenterology Image Exam (12/13/2023 1:10 PM CDT) 12/13/2023 1:09 PM CDT Narrative [facility] - 12/13/2023 2:11 PM CDT This order has been created and auto-finalized to support the import of images acquired without order. The clinical documentation to support these images can be found on the encounter that produced images. Provider Not In System IMG NON RAD IMAGI NG PROCEDURES [facility] NA * ERCP (12/13/2023 1:09 PM CDT) 12/13/2023 1:09 PM CDT Impressions [facility] [place] - 12/13/2023 2:24 PM CDT Post-op Diagnoses: ? - A single localized biliary stricture was found in the lower third of ? the main bile duct. The stricture was indeterminate appearing. ? - The common hepatic duct was moderately dilated upstream from the ? stenosis. ? - The examination was suspicious for choledocholithiasis and sludge with ? purulent output. Sphincterotomy and removal was NOT attempted in the ? setting of clopidogrel use; a stent was inserted due to cholangitis. ? - Cells for cytology/FISH obtained in the lower third of the main duct. ? - One temporary plastic biliary stent was placed into the common bile ? duct for temporary decompression. Narrative [facility] [place] - 12/13/2023 2:24 PM CDT [facility] 6 GI GI Patient Name: Charla Graham Date of : 1940 Age: 83 Procedure Date: 12/13/2023 Procedure: ? ERCP Providers: ? Matias Trimble MD, MARION Falk ? (Fellow) Referring Provider: ?Malka Montero Pre-op Diagnoses: ?Abdominal pain of suspected biliary origin, Abnormal ? abdominal CT, Suspected ascending cholangitis, For ? therapy of ascending cholangitis, Jaundice, Elevated ? liver enzymes, Elevated aspartate transaminase ? (AST), Elevated alanine transaminase (ALT), Elevated ? bilirubin Recommendation: ? - [facility]. ? - Use broad spectrum antibiotics for 7 days. ? - Watch for pancreatitis, bleeding, perforation, and cholangitis. ? - Followup specimen results. Referring team to followup results with the ? assistance of GI/HB consults ? - Recommend repeat EUS and ERCP off clopidogrel for 7 days, no later ? than 6 weeks. Findings: ? The telegraph office telephone clerk film was normal. The esophagus was successfully intubated ? under direct vision. The scope was advanced to the region of the major ? papilla in the descending duodenum without detailed examination of the ? pharynx, larynx and associated structures, and upper GI tract. The upper ? GI tract was grossly normal. A 0.035 inch angled Glidewire was passed ? into the biliary tree. The short-nosed traction sphincterotome was ? passed over the guidewire and the bile duct was then deeply cannulated. ? Contrast was injected. I personally interpreted the bile duct images. ? Ductal flow of contrast was adequate. Image quality was adequate. ? Contrast extended to the hepatic ducts. The middle third of the main ? bile duct contained filling defect(s) thought to be a stone and sludge. ? The lower third of the main bile duct contained a single localized ? stenosis 15 mm in length. The common hepatic duct was moderately dilated ? and dilated upstream from the stenosis. The largest diameter was 12 mm. ? Cells for cytology were obtained by brushing in the lower third of the ? main bile duct. Cells for fluorescence in situ hybridization (FISH) were ? obtained by brushing in the lower third of the main bile duct. One 8.5 ? Fr by 9 cm temporary plastic biliary stent with a single external flap ? and a single internal flap was placed into the common bile duct. Bile ? and pus flowed through the stent. The stent was in good position. Procedural Details: ? The patient was seen, evaluated, history reviewed, airway and heart-lung ? exams were performed by licensed provider and were satisfactory for ? planned level of sedation care. ? The risks, benefits and alternatives for the procedure and sedation were ? discussed and informed consent was obtained. A procedural pause was ? conducted in the presence of assisting personnel to verify the correct ? patient identity and procedure to be performed. Throughout the ? procedure, the patient's blood pressure, pulse, and oxygen saturations ? were monitored continuously. The Duodenoscope was introduced under ? direct vision through the mouth, and used to inject contrast into the ? bile duct. The ERCP was accomplished without difficulty. The patient ? tolerated the procedure well. Estimated Blood Loss: ?Estimated blood loss: none. Complications: ? No immediate complications. Sedation: ? General independent video producer Participation: I was present and participated during the entire ? procedure, including non-kirk portions. Matias Trimble MD 12/13/2023 2:06:53 PM This report has been signed electronically. Number of Addenda: 0 Malka Montero M.D. GI PROCEDURE ORDERAB LES Performing Organization Address City/[facility]/ZIP Co de Phone Number [place] NA * Lactate (12/13/2023 8:44 AM CDT) Lactate, P 1.7 0.5 - 2.2 mmol/L 12/13/2023 9:14 AM CDT [facility] Blood 12/13/2023 8:44 AM CDT 12/13/2023 9:01 AM CDT Malka Montero M.D. LAB BLOOD NON ADD-ON [facility] [address] [place] [address], [place] STMA [facility] [address] [place] [address] * US Gallbladder and or Biliary Ducts (12/13/2023 6:46 AM CDT) Anatomical Region Laterality Modality Abdomen, Ultrasound RST LOS, Ultrasound ARZ LOS, Ultrasound FLA LOS N/A Ultrasound Impressions 12/13/2023 9:41 AM CDT 1. Cholelithiasis and biliary sludge. No sonographic findings to suggest acute cholecystitis. 2. As seen on the prior CT triple phase pancreas angiogram, there is diffuse wall thickening and dilatation of the common hepatic and common bile ducts, likely secondary to obstruction and cholangitis. 3. Echogenic focus in the mid common bile duct with surrounding biliary sludge. This is nonspecific and may represent a non-shadowing gallstone versus hypovascular mass. ERCP is recommended. Narrative 12/13/2023 9:41 AM CDT EXAM: US GALLBLADDER AND OR BILIARY DUCTS COMPARISON: CT triple phase pancreas angiogram 12/12/2023. FINDINGS: Gallbladder: Contracted gallbladder. Cholelithiasis and biliary sludge. No wall thickening or pericholecystic fluid. ??Negative sonographic Peguero sign. Intrahepatic ducts: Dilated Common duct: Diffuse wall thickening and dilatation of the common hepatic and common bile ducts measuring 3.1 mm and 7.5 mm, respectively. Within the mid segment of the common bile duct is an 8 x 5 mm mildly echogenic focus without posterior acoustic shadowing or color Doppler flow with surrounding echogenic sludge. Aorta: Normal caliber. Procedure Note Peyton Haley M.D. - 12/13/2023 EXAM: US GALLBLADDER AND OR BILIARY DUCTS COMPARISON: CT triple phase pancreas angiogram 12/12/2023. FINDINGS: Gallbladder: Contracted gallbladder. Cholelithiasis and biliary sludge. Nowall thickening or pericholecystic fluid. Negative sonographic Murphysign. Intrahepatic ducts: Dilated Common duct: Diffuse wall thickening and dilatation of the common hepaticand common bile ducts measuring 3.1 mm and 7.5 mm, respectively. Withinthe mid segment of the common bile duct is an 8 x 5 mm mildly echogenicfocus without posterior acoustic shadowing or color Doppler flow with surrounding echogenic sludge. Aorta: Normal caliber. IMPRESSION: 1. Cholelithiasis and biliary sludge. No sonographic findings to suggestacute cholecystitis. 2. As seen on the prior CT triple phase pancreas angiogram, there isdiffuse wall thickening and dilatation of the common hepatic and commonbile ducts, likely secondary to obstruction and cholangitis. 3. Echogenic focus in the mid common bile duct with surrounding biliarysludge. This is nonspecific and may represent a non-shadowing gallstoneversus hypovascular mass. ERCP is recommended. Malka SANTOS US PROCEDURES * Interpretation of Outside CT Abdomen and or Pelvis (12/13/2023 6:14 AM CDT) Anatomical Region Laterality Modality Abdomen, Pelvis, Abdominal R ST LOS, Abdominal ARZ LOS, Abdominal FLA LOS, Other N/A Computed Tomography Impressions 12/13/2023 7:35 AM CDT 1. ??Redemonstration of distal common bile duct stricture with persistent dilation of the common bile duct but less severe intrahepatic biliary duct dilation when compared to later [facility] performed on the same day. 2. ??Inflammation of the biliary tree with imaging findings indicative of cholangitis. No intrahepatic abscess identified. 3. ??Similar prominent gastrohepatic and portacaval lymph nodes which could be reactive, however, indeterminate given the potential malignant etiology of the common bile duct stricture. 4. ??Mild inflammation extending from the splenic flexure to rectum. No pericolonic abscess or bowel obstruction. Narrative 12/13/2023 7:35 AM CDT EXAM: ??INTERPRETATION OF OUTSIDE CT ABDOMEN AND OR PELVIS CT abdomen and pelvis with IV contrast dated 12/12/2023. COMPARISON: ??Later performed [facility] on the same day. FINDINGS: ?? Redemonstration of short segment distal common bile duct stricture (series 4 image 151) with upstream biliary biliary debris (but without identifiable obstructive stone or mass) and upstream biliary ductal dilation, but overall less severe since later performed [facility], for intrahepatic biliary ductal dilation has decreased but with similar 1.4 cm common bile duct dilation. Ongoing biliary wall thickening/enhancement extending to the dilated intrahepatic bile ducts along with scattered peribiliary enhancement and areas of mild ill-defined hepatic parenchymal enhancement. No evidence of intrahepatic abscess. Decompressed gallbladder with wall thickening/enhancement but without acute cholecystitis. Similar prominent gastrohepatic and portacaval lymph nodes, which remain indeterminate. Atrophic pancreas. No peripancreatic fluid collection or pancreatic ductal dilation. Decrease conspicuity but likely ongoing colonic wall thickening particularly extending to the splenic flexure to the rectum with to slight areas of patchy pericolonic stranding of pericolonic abscess or bowel obstruction. Patent portal vein. Remainder of examination has not significantly changed compared to later performed [facility]. This examination was performed in conjunction with a CT of the chest. Procedure Note Manjit Scott D.O. - 12/13/2023 EXAM: INTERPRETATION OF OUTSIDE CT ABDOMEN AND OR PELVIS CT abdomen andpelvis with IV contrast dated 12/12/2023. COMPARISON: Later performed [facility] on the same day. FINDINGS: Redemonstration of short segment distal common bile duct stricture (series4 image 151) with upstream biliary biliary debris (but withoutidentifiable obstructive stone or mass) and upstream biliary ductaldilation, but overall less severe since later performed [facility], for intrahepatic biliary ductal dilation has decreasedbut with similar 1.4 cm common bile duct dilation. Ongoing biliary wallthickening/enhancement extending to the dilated intrahepatic bile ductsalong with scattered peribiliary enhancement and areas of mild ill-defined hepatic parenchymal enhancement.No evidence of intrahepatic abscess. Decompressed gallbladder with wallthickening/enhancement but without acute cholecystitis. Similar prominent gastrohepatic and portacaval lymph nodes, which remainindeterminate. Atrophic pancreas. No peripancreatic fluid collection orpancreatic ductal dilation. Decrease conspicuity but likely ongoing colonic wall thickeningparticularly extending to the splenic flexure to the rectum with to slightareas of patchy pericolonic stranding of pericolonic abscess or bowelobstruction. Patent portal vein. Remainder of examination has not significantly changed compared to laterperformed [facility]. This examination was performed in conjunction with a CT of the chest. IMPRESSION: 1. Redemonstration of distal common bile duct stricture with persistentdilation of the common bile duct but less severe intrahepatic biliary ductdilation when compared to later [facility] performed on the same day. 2. Inflammation of the biliary tree with imaging findings indicative ofcholangitis. No intrahepatic abscess identified. 3. Similar prominent gastrohepatic and portacaval lymph nodes which couldbe reactive, however, indeterminate given the potential malignant etiologyof the common bile duct stricture. 4. Mild inflammation extending from the splenic flexure to rectum. Nopericolonic abscess or bowel obstruction. Vahid Peña M.D. [facility] CT PROCEDU RES * Bacteria / Windy Culture, Blood #2 (12/13/2023 5:56 AM CDT) Only the most recent of2 resultswithin the time period is included. [facility] Bacteria/Mandi da Culture, Blood No growth after 5 days of incubation. 12/18/2023 7:02 AM CDT DTL Blood (Blood, Peripheral Draw) 12/13/2023 5:56 AM CDT 12/13/2023 6:35 AM CDT Comment:Specimen Source Site : Blood Malka Montero M.D. LAB MICROBIOLOGY - G ENERAL ORDERABLES [facility] [address] [place] [id number], [facility] [address] [place] [id number] * Lactate for Sepsis with Reflex (12/13/2023 5:55 AM CDT) [facility] Lactate, P 2.1 0.5 - 2.2 mmol/L 12/13/2023 6:30 AM CDT [facility] Blood (Blood, Venous) 12/13/2023 5:55 AM CDT 12/13/2023 6:17 AM CDT Malka Montero M.D. LAB BLOOD NON ADD-ON [facility] [address] [place] [id number], [facility] [address] [place] [id number] * Cystatin C with Estimated GFR (12/13/2023 5:55 AM CDT) [facility] eGFR by Cystatin C 63 >60 mL/min/BSA 12/13/2023 7:31 AM CDT DT Comment: Estimated GFR calculated using the CKD-EPI Cystatin C (2012) equation. ----ADDITIONAL INFORMATION---- Cystatin C-based eGFR may differ substantially from creatinine- based eGFR in patients with abnormal muscle mass or acutely changing renal function. ??Please interpret together with relevant clinical features. On 01/07/2021 the cystatin C assay method changed. Cystatin C eGFR results > 50 ml/min/1.73m2 are approximately 10% lower with the new assay. Cystatin C 1.03 0.67 - 1.21 mg/L 12/13/2023 7:31 AM CDT DTL Blood (Blood, Venous) 12/13/2023 5:55 AM CDT 12/13/2023 6:57 AM CDT Malka Montero [place] [address] * (ABNORMAL) Prothrombin Time (PT) (12/13/2023 5:55 AM CDT) Only the most recent of2 resultswithin the time period is included. Prothrombin Time, P 18.4(H) 9.4 - 12.5 sec 12/13/2023 6:24 AM CDT [facility] INR 1.7 0.9 - 1.1 12/13/2023 6:24 AM CDT [facility] Comment: ----ADDITIONAL INFORMATION---- Standard intensity warfarin therapeutic range: 2.0 to 3.0 ?? High intensity warfarin therapeutic range: 2.5 to 3.5 Blood (Blood, Venous) 12/13/2023 5:55 AM CDT 12/13/2023 6:17 AM CDT Malka Montero M.D. LAB BLOOD ADD-ON [address] [address], [place] [address] * Phosphorus Inorganic (12/13/2023 5:55 AM CDT) Phosphorus (Inorganic), S 3.1 2.5 - 4.5 mg/dL 12/13/2023 7:31 AM CDT DTL Blood (Blood, Venous) 12/13/2023 5:55 AM CDT 12/13/2023 6:57 AM CDT Malka Montero M.D. LAB BLOOD ADD-ON [facility] [address] [place], [place] [id number] [place] [address] [address] [place] [address] * Magnesium (12/13/2023 5:55 AM CDT) Pathologist [facility] Magnesium, S 1.9 1.7 - 2.3 mg/dL 12/13/2023 7:31 AM CDT DTL Blood (Blood, Venous) 12/13/2023 5:55 AM CDT 12/13/2023 6:57 AM CDT Malka Montero M.D. LAB BLOOD ADD-ON Performing Organization Address City/[facility]/ZIP Co de Phone Number [facility] [address] [place] [address], [facility] [address] [place] [address] * (ABNORMAL) Lipase (12/13/2023 5:33 AM CDT) Pathologist [facility] Lipase, S 12(L) 13 - 60 U/L 12/13/2023 10:35 AM CDT DTL Blood (Blood, Venous) 12/13/2023 5:33 AM CDT 12/13/2023 10:09 AM CDT Malka Montero M.D. LAB BLOOD ADD-ON [facility] [address] [place] [address], [facility] [address] [place] [address] * CT chest abdomen pelv w con-Outside CT Body (12/12/2023 11:35 PM CDT) Only the most recent of2 resultswithin the time period is included. 12/12/2023 11:2 1 PM CDT Narrative [facility] - 12/13/2023 1:08 AM CDT This order has been created and auto-finalized to support the import of outside images. If available, original interpretation can be found on the Media Tab in Chart Review, in Document Viewer, or as an image in QREADS. If a re-interpretation or overread is required please follow defined workflow. ?? Provider Not In System IMG CT PROCEDURES Performing Organization Address [facility] de Phone Number [facility] NA * CT angio head-Outside CT Neuro (12/12/2023 11:30 PM CDT) Only the most recent of2 resultswithin the time period is included. 12/12/2023 11:2 1 PM CDT Narrative [facility] - 12/13/2023 1:04 AM CDT This order has been created and auto-finalized to support the import of outside images. If available, original interpretation can be found on the Media Tab in Chart Review, in Document Viewer, or as an image in QREADS. If a re-interpretation or overread is required please follow defined workflow. ?? Provider Not In System IMG CT PROCEDURES Performing Organization Address [facility] Co de Phone Number [facility] NA * CT Pancreas Angiogram Triple Phase and [...] more definitively assess. Calvin SANTOS CT PROCEDURES * (ABNORMAL) Carbohydrate Antigen 19-9 (CA 19-9) (12/12/2023 10:43 AM CDT) Carbohydrate Ag 19-9, S 84(H) <35 U/mL 12/12/2023 3:08 PM CDT [facility] Comment: ----ADDITIONAL INFORMATION---- The testing method is an immunoenzymatic assay manufactured by [employer] and performed on the [employer] DxI 800. ? Values obtained with different assay methods or kits may be different and cannot be used interchangeably. ? Test results cannot be interpreted as absolute evidence for the presence or absence of malignant disease. Blood (Blood, Venous) 12/12/2023 10:43 AM CDT 12/12/2023 2:07 PM CDT Calvin Bailey M.D. LAB BLOOD ADD-ON Performing Organization Address [facility] Co de Phone Number [facility] [address] [place] [address] [facility] [address] [place] [address] [place] [address] * Prealbumin (PAB) (12/12/2023 10:43 AM CDT) Prealbumin (PAB), S 22 19 - 38 mg/dL 12/13/2023 10:38 AM CDT [facility] Blood (Blood, Venous) 12/12/2023 10:43 AM CDT 12/13/2023 6:44 AM CDT Calvin Bailey M.D. LAB BLOOD ADD-ON Performing Organization Address [facility] Co de Phone Number [facility] [address] [place] [address] [facility] [address] [place] [address] [place] [address] * (ABNORMAL) Hemoglobin A1c (12/12/2023 10:43 AM [...] M.D. LAB BLOOD ADD-ON Performing Organization Address City/[facility] Co de Phone Number [facility] [address] [place], [place] [address] [place] [id number] * (ABNORMAL) Bilirubin, Direct (12/12/2023 10:43 AM CDT) Pathologist [facility] Bilirubin, Direct, S 1.4(H) 0.0 - 0.3 mg/dL 12/12/2023 11:42 AM CDT DTL Blood (Blood, Venous) 12/12/2023 10:43 AM CDT 12/12/2023 11:24 AM CDT Calvin Bailey M.D. LAB BLOOD ADD-ON Performing Organization Address [facility] Co de Phone Number [facility] [address] [place], [place] [id number] [place] [address] * (ABNORMAL) Comprehensive Metabolic Panel (12/12/2023 10:43 [...] CDT Calvin Bailey M.D. LAB BLOOD ADD-ON [facility] [address] [place] [address], [facility] DTL [facility] [address] [place] [address] * Cytology Non-PROGRAM MANAGEMENT MANAGER (10/18/2023 4:12 PM INSPECTOR ELECTROMECHANICAL) 10/20/2023 10:42 AM INSPECTOR ELECTROMECHANICAL ECLR Fixative n/a 10/20/2023 10:42 AM INSPECTOR ELECTROMECHANICAL ECLR Report electronically signed by Romie Moran M.D. I verify that I have examined all relevant slides/material s for the specimen(s) and rendered or confirmed the diagnosis. 10/20/2023 10:42 AM INSPECTOR ELECTROMECHANICAL ECLR Gross Description Received 40 cc of cloudy yellow fluid without fixative. 10/20/2023 10:42 AM INSPECTOR ELECTROMECHANICAL ECLR Collection Procedure Straight cath 10/20/2023 10:42 AM INSPECTOR ELECTROMECHANICAL ECLR Source A. Urine, straight, catheterized 10/20/2023 10:42 AM INSPECTOR ELECTROMECHANICAL ECLR Clinical History recurrent UTIs 03/2024 10:42 AM INSPECTOR ELECTROMECHANICAL ECLR Interpretation A. Urine, straight, catheterized (cytospin): Negative for High-Grade Urothelial Carcinoma. Crystals present. 10/20/2023 10:42 AM INSPECTOR ELECTROMECHANICAL ECLR Urine 10/18/2023 4:12 PM INSPECTOR ELECTROMECHANICAL 10/19/2023 1:48 PM INSPECTOR ELECTROMECHANICAL Alejandra Souza P.A.-C. LAB SURG PATH OR DERABLES [facility] [address] [place] [address], [facility] ECLR [address] [phone] from Last 3 Months Advance Directives For more information, please contact: [phone] * Full Code (Latest Code Status on File) Date Activated Date Inactivated Comments 12/13/2023 7:13 PM 12/15/2023 3:14 PM Question Answer Comments Full Code: Discussed As per admission note * Full Code Date Activated Date Inactivated Comments 06/13/2018 12:21 PM 06/13/2018 3:13 PM Question Answer Comments Full Code: Discussed * Full Code Date Activated Date Inactivated Comments 06/04/2018 11:49 AM 06/04/2018 2:31 PM Question Answer Comments Full Code: Discussed
--- OUTSIDE RECORDS SUMMARY | 2023-12-18 17:53 | XMS_ITS | Clinical Summary ---
Author Name Unknown Organization [facility] Address [address] [place] [address] Care Team Providers Care Online Marketing Coordinator Name Role Phone Unavailable Primary Care Provider Unavailabl e Source Comments Patient records contain information from all sites at [facility]. For routine questions regarding patient records, call [phone] during business hours, M-F 8:00 AM - 5:00 PM Central Time. Record requests for emergency care only can be directed to [phone] at any time.[facility] Allergies Active Allergy Reactions Criticality Noted Date [...] glucose scanning reader (FreeStyle Barbie 14 Day Gilbert) by other route. 08/25/2022 Active B complex-vitamin (SUPER B-50) capsule Take 1 tablet by mouth daily. 11/02/2023 Active A LIPOIC RBHI-WVXIGE-JHO BERINE ORAL Take by mouth daily. 11/02/2023 [...] Overview: Added automatically from request for surgery [id number] Cataract Senile Nuclear Sclerosis Left 8 Overview: Added automatically from request for surgery [id number] Resolved Problems Problem Noted Date Diagnosed Date Resolved Date Stone Common Duct 12/13/2023 12/13/2023 Encounters Date Type Department Care Team Description 12/13/2023 1:12 PM CDT Anesthesia Event Division of Gastroenterology in [place], [place] [address] [place] [phone] Yolis Bonilla Mary, M.B., B.Ch., B.A.O. 12/13/2023 1:10 PM CDT Ancillary Procedure Department of Gastroenterology 12/13/2023 12:41 PM CDT - 12/13/2023 11:59 PM CDT Hospital Encounter Department of Radiology, [place], [place] [address] [place] [phone] Malka Montero M.D. Discharge Disposition: Home or Self Care 12/13/2023 5:35 AM CDT Ancillary Procedure Department of Radiology in [place], [place] [address] [place] [phone] Vahid Kaplan M.D. 12/13/2023 4:12 AM CDT - 12/15/2023 1:09 PM CDT Hospital Encounter [facility], Fourth Floor [address] [place] [phone] Naun Moore M.B., Ch.B. Vipul Caraballo M.D. Discharge Disposition: Home or Self Care 12/13/2023 Intake T TRANSFER CENTER 12/12/2023 11:34 AM CDT - 12/12/2023 11:59 PM CDT Hospital Encounter Department of Radiology, [facility] in [place], [place] [address] [place] [phone] Calvin Bailey M.D. Mass Pancreas Discharge Disposition: Home or Self Care 12/12/2023 10:26 AM CDT - 12/12/2023 11:33 AM CDT Hospital Encounter Department of Laboratory Medicine and Pathology, [place], [place] [address] [place] [phone] Calvin Bailey M.D. Mass Pancreas Discharge Disposition: Home or Self Care 12/12/2023 Clinical Communication Division of Gastroenterology in [address] [phone] Prescheduling, Provider 12/04/2023 Patient Outreach Department of Oncology in [place], [place] [address] [place] [phone] Dariela Palmer R.N. 11/30/2023 9:20 AM CDT Telemedicine Division of Gastroenterology in [place], [place] [address] [place] [phone] Deyanira García R.N. Mass Pancreas (Primary Dx) 11/29/2023 10:00 AM CDT Clinical Communication Virtual Review in [place], [place] 200 [place] [address] Pre-visit Intake 11/23/2023 Clinical Communication Division of Gastroenterology in [place], [place] [address] [place] [phone] Provider, Unknown Pre-visit Intake; OSM (GIH/) 11/16/2023 [facility] [address] [place] [address] Audra Doss, C.N.P. Abnormal Findings On Diagnostic Imaging Of Other Abdominal Regions Including Retroperitoneum (Primary Dx) 11/03/2023 Clinical Communication Department of Urology in [address] [phone] Alejandra Souza, P.A.-C. Communication 10/19/2023 Orders Only Department of Urology in [address] [phone] Alejandra Souza, P.A.-C. 10/18/2023 2:30 PM SUPPLY REQUIREMENTS OFFICER Comprehensive Visit Department of Urology in [address] [phone] Alejandra Souza, P.A.-C. Cystitis Recurrent (Primary Dx); Urinary Tract Infection Site Not Specified; Dysfunction Voiding Discharge Disposition: Home or Self Care 10/17/2023 [facility] [address] [place] [address] Audra Doss C.N.P. Urinary Tract Infection (UTI)/Bacteriuria NOS (Primary Dx) 10/02/2023 Clinical Communication Department of Ophthalmology in [address] [phone] Mauri Farrell M.D. from Last 3 Months [...] drink = 0.6 oz pur e alcohol) [facility] [employer] Answer Date Recorded In the past 12 months has e [employer], gas, oil, or water [employer] threatened to shut off services in your [...] your living situation today? I have a [facility] place to live 12/13/2023 Sex and Gender [...] CDT Comprehensive Visit Division of Gastroenterology in [place], [place] [address] [place] [address] Audra Doss, C.N.P. [address] [place] [address] Omid Dillard M.D. [address] [place] [phone] 12/29/2023 9:00 AM CDT Clinical Support Department of Nutrition and Diabetes Education in [place], [place] [address] [place] [phone] Calvin Bailey M.D. [address] [place] [phone] Maricruz Ryan M.S., RDN, LD [address] [place] [phone] 01/15/2024 8:00 AM CDT Procedure visit Department of Urology in [address] [phone] Alejandra Souza P.A.-C. [address] [place] [phone] Discharge Disposition: Home or Self Care 01/15/2024 11:45 AM CDT Appointment Division of Gastroenterology in [place], [place] [address] [place] [phone] Calvin Bailey M.D. [address] [place] [phone] Health Maintenance Due Date Last Done Comments [...] (#1) 2023 Depression Screening (Annual PHQ-2) 08/14/2023 Hemoglobin A1C 06/12/2024 12/12/2023, 06/2 04/2022, 05/14/2018 Creatinine Level (Kidney Fun ction Test) 12/13/2024 12/14/2023, 12/13/2023, 12/12/2023, Additional history exists Fall Risk Screen (Annual) Completed 12/13/2023 Medical Devices Implanted Type Area Mold Repairer Device Identifier Shelf Expiration Date Model / Serial / Lot Stnt Ctt Otw 8.5f 9 - [id number] Implanted:Qty : 1 on 12/13/2023 by Matias Moss M.D., M.S. at [facility] Biliary Stent [employer]. 06/28/2026 [id number] / / [id number] Hip Implant Hip Implant Bilater al: Hip Lens Tcn [id number] Bicnvx +25.0d - [id number] - [id number] Implanted:Qty : 1 on 06/04/2018 by Mauri Farrell M.D. at [facility] Ocular Lens [employer] (Previously ALONDRA) [id number] / [id number] / Lens Tcn [id number] Ant +26.0d - [id number] - [id number] Implanted:Qty : 1 on 06/13/2018 by Mauri Farrell M.D. at [facility] Ocular Lens Left: Eye [employer] (Previously ALONDRA) [id number] 12/07/2021 [id number] / [id number] / Procedures Procedure Name Priority Date/Time [...] BODY Routine 11/13/2023 11:20 AM CDT CYTOLOGY NON-VICE PRINCIPAL Routine 10/18/2023 4:12 PM SUPPLY REQUIREMENTS OFFICER Cystitis Recurrent URINALYSIS WITH MICROSCOPIC Routine 10/18/2023 4:11 PM SUPPLY REQUIREMENTS OFFICER Cystitis Recurrent BACTERIAL CULTURE, AEROBIC + SUSC, URINE Routine 10/18/2023 4:11 PM SUPPLY REQUIREMENTS OFFICER Cystitis Recurrent from Last 3 Months Results [...] Unknown Provider LAB POCT ORDERABLES- MANUAL POC [facility] [address] [place] [address], [facility] PCLX [facility] POC [address] [place] [address] * (ABNORMAL) Hepatic Function Panel (12/14/2023 8:20 [...] CDT Vipul Caraballo M.D. LAB BLOOD ADD-ON [address] [address], [facility] [address] [address] * (ABNORMAL) CBC with Differential, Blood (12/14/2023 [...] CDT Malka Montero M.D. LAB BLOOD ADD-ON [facility] [address] [place] [address], [facility] DTL [facility] [address] [place], [place] [address] [place] [address] 200 [place] [address] * (ABNORMAL) Basic Metabolic Panel (12/14/2023 7:20 AM CDT) Only the most recent of2 resultswithin the time period is included. [facility] Potassium, S 3.9 3.6 - 5.2 [...] CDT Malka Montero M.D. LAB BLOOD ADD-ON [address] [address], [place] [address] * (ABNORMAL) Dipstick, Urine (12/13/2023 6:24 PM [...] M.D. LAB URINE ORDERABLES Performing Organization Address City/[facility]/[place] [address] * (ABNORMAL) Microscopic Manual (12/13/2023 6:24 PM [...] M.D. LAB URINE ORDERABLES Performing Organization Address City/[facility]/[place] [address] * Bacterial Culture, Aerobic + Susceptibility, Urine (12/13/2023 6:24 PM CDT) Only the most recent of2 resultswithin the time period is included. Urine Culture No growth after 1 day of incubation. 12/15/2023 8:10 AM CDT DTL Urine (Urine, Midstream) 12/13/2023 6:24 PM CDT 12/13/2023 7:43 PM CDT Comment:Specimen Source Site : Urine Malka Montero M.D. LAB MICROBIOLOGY - G ENERAL ORDERABLES Performing Organization Address City/[facility]/ZIP Co de Phone Number [address] [facility] [place] [address] [place] [address] * pH, Urine (12/13/2023 6:24 PM CDT) Pathologist [facility] pH, U 5.7 4.5 - 8.0 12/13/2023 7:1 0 PM CDT DTL Urine 12/13/2023 6:24 PM CDT 12/13/2023 6:48 PM CDT Malka Montero M.D. LAB URINE ORDERABLES Performing Organization Address City/[facility]/ZIP Co de Phone Number [facility] [address] [place], [place] [address] [place] [address] * Osmolality, Urine (12/13/2023 6:24 PM CDT) [facility] Osmolality, U 399 150 - 1150 mOsm/kg 12/13/2023 7:10 PM CDT DT Urine 12/13/2023 6:24 PM CDT 12/13/2023 6:48 PM CDT Malka Montero M.D. LAB URINE ORDERABLES [phone] [place] [address] * (ABNORMAL) Urinalysis, with Microscopic: Urine, Midstream (12/13/2023 6:24 PM CDT) Only the most recent of2 resultswithin the time period is included. Pathologist [facility] Source Urine, Urine, Midstream 12/13/2023 6:48 PM [...] M.D. LAB URINE ORDERABLES Performing Organization Address City/[facility] Co de Phone Number [facility] [address] [place] [address], [facility] DTL [facility] [address] [place] [address] * FL Fluoro Less Than 1 Hour (12/13/2023 2:05 PM CDT) Narrative ERCP LOS RST - 12/13/2023 2:06 PM CDT This exam does not require a radiologist review or interpretation. Please refer to the patient's medical record on this date for clinical details. Malka Montero M.D. IMG FLUOROSCOPY PROC EDURES Performing Organization Address [facility] Co de Phone Number ERCP LOS RST * LDA ANE ENDOTRACHEAL [...] ETT location: oral VL device: glide scope [place] scope blade size: 3 Tube size: 7 [...] Notable Events: no complications Amarjit Smith APRN, [employer] ANESTHESIA RAFA DAHL * ERCP-Gastroenterology Image Exam (12/13/2023 1:10 PM CDT) 12/13/2023 1:09 PM CDT Narrative [facility] - 12/13/2023 2:11 PM CDT This order has been created and auto-finalized to support the import of images acquired without order. The clinical documentation to support these images can be found on the encounter that produced images. Provider Not In System IMG NON RAD IMAGI NG PROCEDURES [facility] NA * ERCP (12/13/2023 1:09 PM CDT) 12/13/2023 1:09 PM CDT Impressions [facility] - 12/13/2023 2:24 PM CDT Post-op Diagnoses: [...] bile ? duct for temporary decompression. Narrative [employer] - 12/13/2023 2:24 PM CDT Oracio 6 [...] ? than 6 weeks. Findings: ? The tape coater film was normal. The esophagus was successfully [...] ? No immediate complications. Sedation: ? 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 procedure, including non-kirk portions. Matias Trimble MD 12/13/2023 2:06:53 PM This report has been signed electronically. Number of Addenda: 0 Malka Montero M.D. GI PROCEDURE ORDERAB LES Performing Organization Address City/[facility] Co de Phone Number [employer] NA * Lactate (12/13/2023 8:44 AM CDT) Lactate, P 1.7 0.5 - 2.2 mmol/L 12/13/2023 9:14 AM CDT STMA Blood 12/13/2023 8:44 AM CDT 12/13/2023 9:01 AM CDT Malka Montero M.D. LAB BLOOD NON ADD-ON Performing Organization Address [facility] de Phone Number [facility] [address] [place] [address], [facility] [address] [place] [address] * US Gallbladder and or Biliary Ducts [...] biliary duct dilation when compared to later johnson CT performed on the same day. 2. [...] IV contrast dated 12/12/2023. COMPARISON: ??Later performed johnson CT on the same day. FINDINGS: ?? 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 This examination was performed in conjunction with a CT of the chest. Procedure Note Manjit Scott D.O. - 12/13/2023 EXAM: INTERPRETATION OF OUTSIDE CT ABDOMEN AND OR PELVIS CT abdomen andpelvis with IV contrast dated 12/12/2023. COMPARISON: Later performed johnson CT on the same day. FINDINGS: Redemonstration of short segment distal common bile duct stricture (series4 image 151) with upstream biliary biliary debris (but withoutidentifiable obstructive stone or mass) and upstream biliary ductaldilation, but overall less severe since later performed johnson CT, for intrahepatic biliary ductal dilation has [...] has not significantly changed compared to laterperformed johnson CT. This examination was performed in conjunction with a CT of the chest. IMPRESSION: 1. 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 2. Inflammation of the biliary tree with imaging findings indicative ofcholangitis. No intrahepatic abscess identified. 3. Similar prominent gastrohepatic and portacaval lymph nodes which couldbe reactive, however, indeterminate given the potential malignant etiologyof the common bile duct stricture. 4. Mild inflammation extending from the splenic flexure to rectum. Nopericolonic abscess or bowel obstruction. Vahid Peña M.D. [facility] CT PROCEDU RES * Bacteria / Windy Culture, Blood #2 (12/13/2023 5:56 AM CDT) Only the most recent of2 resultswithin the time period is included. Bacteria/Mandi da Culture, Blood No growth after 5 days of incubation. 12/18/2023 7:02 AM CDT DTL Blood (Blood, Peripheral Draw) 12/13/2023 5:56 AM CDT 12/13/2023 6:35 AM CDT Comment:Specimen Source Site : Blood Malka Montero M.D. LAB MICROBIOLOGY - G ENERAL ORDERABLES [facility] [address] [place] [address], [facility] DTL [facility] [address] [place] [address] * Lactate for Sepsis with Reflex (12/13/2023 5:55 AM CDT) Pathologist [facility] Lactate, P 2.1 0.5 - 2.2 mmol/L 12/13/2023 6:30 AM CDT STMA Blood (Blood, Venous) 12/13/2023 5:55 AM CDT 12/13/2023 6:17 AM CDT Malka Montero M.D. LAB BLOOD NON ADD-ON Performing Organization Address [facility]/ZIP Co de Phone Number [facility] [address] [place] [address], [facility] STMA [facility] [address] [place] [address] * Cystatin C with Estimated GFR (12/13/2023 5:55 AM CDT) [facility] eGFR by Cystatin C 63 >60 mL/min/BSA 12/13/2023 7:31 AM CDT DTL Comment: Estimated GFR calculated using the CKD-EPI [...] CDT Malka Montero M.D. LAB BLOOD ADD-ON [facility] [address] [place], [place] [phone] [place] [address] 200 [place] [address] * (ABNORMAL) Prothrombin Time (PT) (12/13/2023 5:55 AM CDT) Only the most recent of2 resultswithin the time period is included. Pathologist [facility] Prothrombin Time, P 18.4(H) 9.4 - 12.5 sec 12/13/2023 6:24 AM CDT [facility] 1.7 0.9 - 1.1 12/13/2023 6:24 AM CDT [facility] Comment: ----ADDITIONAL INFORMATION---- Standard intensity warfarin therapeutic range: 2.0 to 3.0 ?? High intensity warfarin therapeutic range: 2.5 to 3.5 Blood (Blood, Venous) 12/13/2023 5:55 AM CDT 12/13/2023 6:17 AM CDT Malka Montero M.D. LAB BLOOD ADD-ON [facility] [address] [place], [place] [phone] [place] [address] 200 [place] [address] * Phosphorus Inorganic (12/13/2023 5:55 AM CDT) [facility] Phosphorus (Inorganic), S 3.1 2.5 - 4.5 mg/dL 12/13/2023 7:31 AM CDT DT Blood (Blood, Venous) 12/13/2023 5:55 AM CDT 12/13/2023 6:57 AM CDT Malka Montero M.D. LAB BLOOD ADD-ON [facility] [address] [place], [place] [address] [place] [address] 200 [place] [address] * Magnesium (12/13/2023 5:55 AM CDT) [facility] Magnesium, S 1.9 1.7 - 2.3 mg/dL 12/13/2023 7:31 AM CDT DTL Blood (Blood, Venous) 12/13/2023 5:55 AM CDT 12/13/2023 6:57 AM CDT Malka Montero M.D. LAB BLOOD ADD-ON Performing Organization Address City/[facility]/ZIP Co de Phone Number [facility] [address] [place] [address], [facility] [address] [place] [address] * (ABNORMAL) Lipase (12/13/2023 5:33 AM CDT) [facility] Lipase, S 12(L) 13 - 60 U/L 12/13/2023 10:35 AM CDT DT Blood (Blood, Venous) 12/13/2023 5:33 AM CDT 12/13/2023 10:09 AM CDT Malka Montero M.D. LAB BLOOD ADD-ON Performing Organization Address [facility] Co de Phone Number [facility] [address] [place] [address], [facility] [address] [place] [address] * CT chest abdomen pelv w con-Outside CT Body (12/12/2023 11:35 PM CDT) Only the most recent of2 resultswithin the time period is included. 12/12/2023 11:2 1 PM CDT Narrative [facility] - 12/13/2023 1:08 AM CDT This order [...] [facility]/ZIP Co de Phone Number [facility] NA * CT angio head-Outside CT Neuro (12/12/2023 11:30 PM CDT) Only the most recent of2 resultswithin the time period is included. 12/12/2023 11:2 1 PM CDT Narrative [facility] - 12/13/2023 1:04 AM CDT This order [...] PROCEDURES Performing Organization Address City/[facility] Co de Phone Number [facility] [...] 84(H) <35 U/mL 12/12/2023 3:08 PM CDT [facility] Comment: ----ADDITIONAL INFORMATION---- The testing method is an immunoenzymatic assay manufactured by [employer] and performed on the [employer] DxI 800. ? Values obtained with different assay methods or kits may be different and cannot be used interchangeably. ? Test results cannot be interpreted as absolute evidence for the presence or absence of malignant disease. Blood (Blood, Venous) 12/12/2023 10:43 AM CDT 12/12/2023 2:07 PM CDT Calvin Bailey M.D. LAB BLOOD ADD-ON [facility] [address] [place] [address] [facility] [address] [place] [address] * Prealbumin (PAB) (12/12/2023 10:43 AM CDT) Prealbumin (PAB), S 22 19 - 38 mg/dL 12/13/2023 10:38 AM CDT [facility] Blood (Blood, Venous) 12/12/2023 10:43 AM CDT 12/13/2023 6:44 AM CDT Calvin Bailey M.D. LAB BLOOD ADD-ON [facility] [address] [place] [address] [facility] [address] [place] [address] * (ABNORMAL) Hemoglobin A1c (12/12/2023 10:43 AM CDT) Pathologist [facility] Hemoglobin A1c, B 7.6(H) 4.0 - 5.6 [...] CDT Calvin Bailey M.D. LAB BLOOD ADD-ON [facility] [address] [place] [address], [facility] [address] [place] [address] * (ABNORMAL) Bilirubin, Direct (12/12/2023 10:43 AM CDT) Pathologist [facility] Bilirubin, Direct, S 1.4(H) 0.0 - 0.3 mg/dL 12/12/2023 11:42 AM CDT DTL Blood (Blood, Venous) 12/12/2023 10:43 AM CDT 12/12/2023 11:24 AM CDT Calvin Bailey M.D. LAB BLOOD ADD-ON [facility] [address] [place] [address], [facility] DTL [facility] [address] [place] [address] * (ABNORMAL) Comprehensive Metabolic Panel (12/12/2023 10:43 AM CDT) [facility] Potassium, S 5.1 3.6 - 5.2 mmol/L [...] CDT Calvin Bailey M.D. LAB BLOOD ADD-ON [facility] [address] [place] [address], [facility] [address] [place] [address] * Cytology Non-VICE PRINCIPAL (10/18/2023 4:12 PM SUPPLY REQUIREMENTS OFFICER) 10/20/2023 10:42 AM SUPPLY REQUIREMENTS OFFICER ECLR Fixative n/a 10/20/2023 10:42 AM SUPPLY REQUIREMENTS OFFICER ECLR Report electronically signed by Romie Moran M.D. I verify that I have examined all relevant slides/material s for the specimen(s) and rendered or confirmed the diagnosis. 10/20/2023 10:42 AM SUPPLY REQUIREMENTS OFFICER ECLR Gross Description Received 40 cc of cloudy yellow fluid without fixative. 10/20/2023 10:42 AM SUPPLY REQUIREMENTS OFFICER ECLR Collection Procedure Straight cath 10/20/2023 10:42 AM SUPPLY REQUIREMENTS OFFICER ECLR Source A. Urine, straight, catheterized 10/20/2023 10:42 AM SUPPLY REQUIREMENTS OFFICER ECLR Clinical History recurrent UTIs 03/2024 10:42 AM SUPPLY REQUIREMENTS OFFICER ECLR Interpretation A. Urine, straight, catheterized (cytospin): Negative for High-Grade Urothelial Carcinoma. Crystals present. 10/20/2023 10:42 AM SUPPLY REQUIREMENTS OFFICER ECLR Urine 10/18/2023 4:12 PM SUPPLY REQUIREMENTS OFFICER 10/19/2023 1:48 PM SUPPLY REQUIREMENTS OFFICER Alejandra Souza P.A.-C. LAB SURG PATH OR DERABLES [facility] [address] [place] [address], [facility] ECLR [address] [facility] [address] [place] [address] from Last 3 Months Advance Directives For more information, please contact: [phone] * Full Code (Latest Code Status on [...]
--- OUTSIDE RECORDS SUMMARY | 2023-12-18 17:53 | XMS_ITS ---
Author Name Unknown Organization [facility] Address [address] [place] [address] Care Team Providers Care Entry Level Business Analyst Name Role Phone Unavailable Unavailable Unavailable Surgery Details Not on file Complications Check Surgery Details section. Procedure Estimated Blood Loss Check Surgery Details section. Procedure Findings Check Surgery Details section. Procedure Specimens Taken Check Surgery Details section.
--- OUTSIDE RECORDS SUMMARY | 2023-12-18 17:54 | XMS_ITS | Encounter Summary ---
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 Name Role Phone Unavailable Primary Care Provider Unavailabl e Reason for Visit * Reason Onset Date Comments Pre-visit Intake 11/29/2023 Encounter Details Date Type Department Care Team (Latest Contact Info) Description 11/29/2023 10:00 AM CDT Clinical Communication Virtual Review in [place], [place] 200 [place] [address] Pre-visit Intake Social History Tobacco Use Types Packs/Day Years Used Date Smoking Tobacco: Never Smokeless Tobacco: Never Alcohol Use Standard Drinks/Week Comments No 0 (1 standard drink = 0.6 oz pur e alcohol) [facility] Utilities Answer Date Recorded In [...] living? No 11/29/2023 Nutrition Answer Date Recorded On average, how [...] your living situation today? I have a [facility] place to live 11/29/2023 Sex [...] CDT Comprehensive Visit Division of Gastroenterology in [place], [place] [address] [place] [phone] Audra Doss C.NHerbertP. 1999 [place] [address] Omid Dillard M.D. [address] [place] [phone] 12/29/2023 9:00 AM CDT Clinical Support Department of Nutrition and Diabetes Education in [place], [place] [address] [place] [phone] Calvin Bailey M.D. [address] [place] [phone] Maricruz Ryan M.S., RDN, LD [address] [place] [phone] 01/15/2024 8:00 AM CDT Procedure visit Department of Urology in [place], [place] [address] [place] [phone] Alejandra Souza P.A.-C. [address] [phone] Discharge Disposition: Home or Self Care 01/15/2024 11:45 AM CDT Appointment Division of Gastroenterology in [place], [place] [address] [place] [address] Calvin Bailey M.D. [address] [place] [address] documented as of this encounter Visit Diagnoses Not on filedocumented in this encounter
--- OUTSIDE RECORDS SUMMARY | 2023-12-18 17:54 | XMS_ITS | Encounter Summary ---
Author Name Unknown Organization [facility] Address [address] [place] [address] Care Team Providers Care Golf Coach Name Role Phone Unavailable Primary Care Provider Unavailabl e Reason for Referral * Outpatient (Routine) - Authorized Specialty Diagnoses / Procedures Referred By Contac t Referred To Contact Diagnoses Mass Pancreas Procedures ERCP Calvin Bailey M.D. 200 [place] [address] [facility] Referral ID Status Reason Start Date Expiration Date V isits Requested Visits Authorized [id number] Authorized 11/30/2023 11/29/2024 1 1 * Outpatient (Routine) - Authorized Specialty Diagnoses / Procedures Referred By Contac t Referred To Contact Diagnoses Mass Pancreas Procedures Endoscopic ultrasound (EUS) [place] [address] [facility] Referral ID Status Reason Start Date Expiration Date V isits Requested Visits Authorized [id number] Authorized 11/30/2023 11/29/2024 1 1 * Outpatient (Routine) - Authorized Specialty Diagnoses / Procedures Referred By Contac t Referred To Contact Nutrition Diagnoses Mass Pancreas Calvin Bailey M.D. 200 [place] [phone] [facility] Referral ID Status Reason Start Date Expiration Date V isits Requested Visits Authorized [id number] Authorized 11/30/2023 05/31/2025 1 1 * MRI/CAT/PET Scan (Routine) - Closed Specialty Diagnoses / Procedures Referred By Contac t Referred To Contact Radiology Diagnoses Mass Pancreas Procedures CT Pancreas Angiogram Triple Phase and Pelvis with IV Contrast Calvin Bailey M.D. [address] [place] [phone] [facility] Referral ID Status Reason Start Date Expiration Date Visits Re quested Visits Authorized [id number] Closed 11/30/2023 11/29/2024 1 1 Encounter Details Date Type Department Care Team (Latest Contact Info) Description 11/30/2023 9:20 AM CDT Telemedicine Division of Gastroenterology in [place], [place] [address] [place] [phone] Deyanira García R.N. [address] [place] [phone] Mass Pancreas (Primary Dx) Social History Tobacco Use Types Packs/Day Years Used Date Smoking Tobacco: Never Smokeless Tobacco: Never Alcohol Use Standard Drinks/Week Comments No 0 (1 standard drink = 0.6 oz pur e alcohol) [facility] Utilities Answer Date Recorded In the past 12 months has [employer], gas, oil, or water [employer] threatened to shut off services in your [...] living situation today? I have a [facility] place to live 11/29/2023 Sex and Gender Information Value Date Recorded Sex Assigned at Female 11/29/2023 7:47 PM CDT Gender Identity Female 11/29/2023 7:47 PM CDT Sexual Orientation Straight 11/29/2023 7: 47 PM CDT documented as of this encounter H&P Notes * Deyanira García R.N. - 11/30/2023 9:20 AM CDT Reason for Visit Gastroenterology and Hepatology: Pancreas Clinic RN Pre-Visit. Patient contacted [facility] requesting on-campus appointment; pre-visit was scheduled following that request. Completed administrative pre-visit discussion to better understand patient goals and the needed patient itinerary for the requested on-site visit. This pre-visit does not establish a long-term relationship. This interview occurred via real-time audio/video technology by Deyanira García R.N. at [facility] to the patient in the patient's home. The information below is based on review of available medical records and a virtual conversation with the patient and her daughters Radha and Antonia. History of Present Illness Ms. Graham is a 83 y.o. female who is being interviewed for a pre-visit encounter. Our records indicate that Ms. Graham was referred to [facility] for concern of a pancreatic mass, asevidenced [...] shared with the patient: Pancreas Scheduling Team [phone]. documented in this encounter Plan of Treatment Upcoming Encounters Date Type Department Care Team (Latest Contact Info) Description 12/20/2023 8:00 AM CDT Comprehensive Visit Division of Gastroenterology in [place], [place] [address] [place] [phone] Audra Doss, C.N.P. 1999 [place] [phone] [place] [phone] 12/29/2023 9:00 AM CDT Clinical Support Department of Nutrition and Diabetes Education in [place], [place] [address] [place] [phone] Calvin Bailey M.D. [address] [place] [phone] Maricruz Ryan M.S., RDN, LD [address] [place] [phone] 01/15/2024 8:00 AM CDT Procedure visit Department of Urology in [address] [phone] Alejandra Souza P.A.-C. [address] [phone] Discharge Disposition: Home or Self Care 01/15/2024 11:45 AM CDT Appointment Division of Gastroenterology in [place], [place] [address] [place] [phone] Calvin Bailey M.D. [address] [place] [phone] Pending Results Name Type Priority Associated Diagnoses [...] Hemoglobin A1c (12/12/2023 10:43 AM CDT) Pathologist [facility] Hemoglobin A1c, B 7.6(H) 4.0 - 5.6 [...] CDT Calvin Bailey M.D. LAB BLOOD ADD-ON [facility] [place] [address], [facility] [place] [address] * (ABNORMAL) Prothrombin Time (PT) (12/12/2023 10:43 AM CDT) Pathologist [facility] Prothrombin Time, P 12.6(H) 9.4 - 12.5 sec 12/12/2023 11:25 AM CDT DTL INR 1.1 0.9 - 1.1 12/12/2023 11:25 AM CDT DTL Comment: ----ADDITIONAL INFORMATION---- Standard intensity warfarin therapeutic range: 2.0 to 3.0 ?? High intensity warfarin therapeutic range: 2.5 to 3.5 Blood (Blood, Venous) 12/12/2023 10:43 AM CDT 12/12/2023 11:03 AM CDT Calvin Bailey M.D. LAB BLOOD ADD-ON Performing Organization Address [facility] Co de Phone Number [facility] [address] [place] [address], [facility] DTL [facility] [address] [place] [address] * Prealbumin (PAB) (12/12/2023 10:43 AM CDT) Prealbumin (PAB), S 22 19 - 38 mg/dL 12/13/2023 10:38 AM CDT [facility] Blood (Blood, Venous) 12/12/2023 10:43 AM CDT 12/13/2023 6:44 AM CDT Calvin Bailey M.D. LAB BLOOD ADD-ON Performing Organization Address [facility] Co de Phone Number [facility] [address] [place] [address] [facility] [address] [place] [address] * (ABNORMAL) Carbohydrate Antigen 19-9 (CA 19-9) (12/12/2023 10:43 AM CDT) Carbohydrate Ag 19-9, S 84(H) <35 U/mL 12/12/2023 3:08 PM CDT [facility] Comment: ----ADDITIONAL INFORMATION---- The testing method is an immunoenzymatic assay manufactured by [employer] and performed on the [employer] DxI 800. ? Values obtained with different assay methods or kits may be different and cannot be used interchangeably. ? Test results cannot be interpreted as absolute evidence for the presence or absence of malignant disease. Blood (Blood, Venous) 12/12/2023 10:43 AM CDT 12/12/2023 2:07 PM CDT Calvin Bailey M.D. LAB BLOOD ADD-ON Performing Organization Address [facility]/ZIP Co de Phone Number [facility] [address] [place] [address] [facility] [address] [place] [address] * (ABNORMAL) Bilirubin, Direct (12/12/2023 10:43 AM CDT) Bilirubin, Direct, S 1.4(H) 0.0 - 0.3 mg/dL 12/12/2023 11:42 AM CDT DTL Blood (Blood, Venous) 12/12/2023 10:43 AM CDT 12/12/2023 11:24 AM CDT Calvin Bailey M.D. LAB BLOOD ADD-ON [facility] [address] [place] [address], [facility] 200 [place] [address] * (ABNORMAL) Comprehensive Metabolic Panel (12/12/2023 10:43 AM CDT) Pathologist [facility] Potassium, S 5.1 3.6 - 5.2 mmol/L [...] CDT Calvin Bailey M.D. LAB BLOOD ADD-ON [facility] [address] [address], [facility] [address] [address] * (ABNORMAL) CBC with Differential, Blood (12/12/2023 [...] CDT Calvin Bailey M.D. LAB BLOOD ADD-ON [facility] 200 [place] [address], [facility] DTL [facility] [address] [place] [address] DHPM [facility] 200 [place] [address] documented in this encounter Visit Diagnoses Diagnosis Mass Pancreas- Primary Mass Pancreas documented in this encounter
--- OUTSIDE RECORDS SUMMARY | 2023-12-18 17:54 | XMS_ITS | Encounter Summary ---
Author Name Unknown Organization [facility] Address [address] [place] [address] Care Team Providers Care Program Control Analyst Name Role Phone Unavailable Primary Care Provider Unavailabl e Encounter Details Date Type Department Care Team (Late st Contact Info) Description 12/13/2023 1:12 PM CDT Anesthesia Event Division of Gastroenterology in [place], [place] [address] [place] [address] Yolis Bonilla [address] [place] [phone] Divina Laura M.B., B.Ch., B.A.O. [address] [place] [phone] Anesthesia Record Procedure Summary Procedure Name Responsible Anesthesiologist Anesthesia Start Time Anesthesia Stop Time ERCP Yolis Bonilla 12/13/23 1312 12/13/23 140 8 Events Date Time Event Comment 12/13/2023 1312 An Start Machine/Equipme nt Checked Infection Precautions Followed Procedure/Site Verified NPO Status Verified Supine Standard ASA Monitors Applied 1317 An Induction 1323 An Intubation 1328 Turnover to Proceduralist 1332 Proc Start 1348 Proc Fin 1350 Turnover to ANE Staff 1357 Airway Removal Criteria Met 1357 Extubation/Airway Removed 1400 an stop data 1408 An End I completed my handoff to the receiving staff during which we 1. Identified the patient 2. Identified the responsible provider 3. Reviewed the pertinent medical history 4. Discussed the surgical course 5. Reviewed intra-op anesthesia management and issues during anesthesia 6. Set expectations for post-procedure period 7. Allowed opportunity for questions and acknowledgement of understanding. Meds Name Total lidocaine 2% (mg) injection 40 mg succinylcholine 20 mg/mL injection 80 mg ePHEDrine PF 5 mg/mL syringe injection 1 5 mg ondansetron 4 mg/2 mL injection 4 mg propofol 10 mg/mL infusion 272.44 mg propofol 10 mg/mL injection 130 mg piperacillin-tazobactam IVPB 3.375 g 3.3 75 g Lactated Ringers Free Drip 100 mL D10W infusion 250 mL * Agents No agents on file. * Blood No blood administrations on file. Lines, Drains, and Airways Type Details Placement Removal Peripheral IV Existing LDA Placed by: [facility]; Catheter Size: 20 G; Orientation: Right; Location: Wrist; Removal Date: 12/15/23; Removal Time: 1224; Removal Reason: Patient discharged 12/13/23 0455 by 12/15/23 1224 by Sandra Rizvi R.N. Peripheral IV Existing LDA Placed by: [facility]; Catheter Size: 20 G; Orientation: Left, Lower, Posterior; Location: Forearm; Removal Date: 12/15/23; Removal Time: 1225; Removal Reason: Patient discharged 12/13/23 0456 by 12/15/23 1225 by Sandra Rizvi RHerbertNHerbert ETT Placement Date: 09/06; Placement Time: 1323 (created via procedure documentation); Mask Ventilation: Easy mask; Technique: Video laryngoscopy; Type: Standard ETT; Single Lumen Tube Size: 7 mm; Cuffed: Yes; Location: Oral; Grade View: Grade 1; Insertion Attempts: 1; Placement Verification: Bilateral breath sounds, Positive ETCO2, Symmetrical chest wall movement; Removal Date: 12/13/23; Removal Time: 1407 12/13/23 1323 by Amarjit Smith APRN, TODD 12/13/23 1407 by Yolis Bonilla documented in this encounter Social History Tobacco Use Types Packs/Day Years Used Date Smoking Tobacco: Never Smokeless Tobacco: Never Alcohol Use Standard Drinks/Week Comments No 0 (1 standard drink = 0.6 oz pur e alcohol) [facility] Utilities Answer Date Recorded In the past 12 months has [employer], [employer], or water [employer] threatened to shut off services in your [...] your living situation today? I have a [facility] place to live 12/13/2023 Sex and Gender Information Value Date Recorded Sex Assigned at Female 11/29/2023 7:47 PM CDT Gender Identity Female 11/29/2023 7:47 PM CDT Sexual Orientation Straight 11/29/2023 7: 47 PM CDT documented as of this encounter OR Notes * Anesthesia Postprocedure Evaluation - Yolis Bonilla - 12/13/2023 2:09 PM CDT Patient: Charla Graham Procedure Summary Date: 12/13/23 Room / Location: Division of Gastroenterology in [place], [place] Anesthesia Start: 1312 Anesthesia Stop: 1408 Procedure: ERCP Diagnosis: Scheduled Providers: Amarjit Smith APRN, CRNA Responsible Provider: Yolis Bonilla Anesthesia Type: general ASA Status: 3 Anesthesia Type: general Last vitals Vitals Value Taken Time BP 127/57 12/13/23 1406 Temp 36.3 ??C 12/13/23 1406 Pulse 88 12/13/23 1408 Resp 22 12/13/23 1408 SpO2 99 % 12/13/23 1408 Vitals shown include unfiled device data. Please reference Vitals flowsheet for most recent vital signs. Anesthesia Post Evaluation Patient Disposition: general care unit Cardiovascular status: hemodynamics (HR & BP) acceptable Respiratory status: patent airway with spontaneous effort Temperature: normothermic Oxygen requirements: room air Level of consciousness: awake Pain score: pain adequately controlled and/or at baseline Post Op nausea/vomiting: none Hydration status: euvolemic * Anesthesia Procedure Notes - Amarjit Smith APRN, CRNA - 12/13/2023 1:35 PM CDTAssociated Order(s): Airway Airway Date/Time: 12/13/2023 1:23 PM Performed by: Amarjit Smith APRN, CRNA Authorized by: Amarjit Smith APRN, CRNA Patient location during procedure: OR / Procedure Area PROCEDURE DETAILS: Mask difficulty assessment: easy mask Final airway type: video laryngoscope Laryngeal Manipulation: no Final best view of glottic structures - Cormack/Lehane Score: grade 1 ETT location: oral VL device: glide scope Horton scope blade size: 3 Tube size: 7 ETT distance at teeth/gum: 20 Oral tube type: standard ETT Cuffed: yes Leak Test Performed: no Number of attempt to successful placement: 1 Airway confirmation: bilateral breath sounds, positive ETCO2 and bilateral chest rise Other previous techniques attempted: none PRE PROCEDURE DETAILS: Pre evaluation for airway management: procedure Urgency: elective Preop assessment of probable difficulty: no difficulty anticipated Preoxygenation: bag valve mask SEDATION / ANESTHESIA Anesthesia method: anesthesia POST PROCEDURE DETAILS: Procedure outcome: successful Notable Events: no complications * Anesthesia Preprocedure Evaluation - Amarjit Smith APRN, CRNA - 12/13/2023 10:43 AM CDT Preprocedure Anesthesia & H&P Assessment Procedure Summary Date/Time: 12/13/23929 Scheduled providers: Amarjit Smith APRN, CRNA Procedure: ERCP Location: Division of Gastroenterology in [place], [place] Pertinent components of the patient's history including current problem list, medical history, surgical history, family history, social history, medications and allergies were reviewed. Present illness and pre-op diagnosis were confirmed. The planned surgery / procedure was verified with the patient / legal guardian. The patient's general health condition remains unchanged RELEVANT COMORBID CONDITIONS ENDO (+) Diabetes Mellitus Type 2 Without Complication (HCC) OBJECTIVE PHYSICAL EXAMINATION Airway (HEENT) Mallampati: II TM Distance: >3 FB Neck ROM: Full Mouth Opening: >3 cm Cardiovascular Rhythm: Regular Cardiovascular Assessment: cardiovascular normal Functional Capacity: >4 METS Pulmonary Pulmonary Assessment: Clear General / Constitutional Constitutional Assessment: Thin General State of Health:: healthy appearing Neurological Neurologic Assessment: alert and alert and oriented x 3 Dental adentulous ASSESSMENT / PLAN ANESTHESIA PLAN ASA: 3 Anesthesia Plan: general Patient seen and allergies reviewed, anesthesia plan and risks discussed directly with patient /legal guardian or through an supervising chef. Risks/Benefits/Alternatives of Blood transfusion discussed with patient / legal guardian, includingan opportunity to ask questions and/or decline some or all transfusion therapies. The patient / legal guardian consented to the use of all blood products, as deemed medically necessary Approval to Proceed: approved for anesthesia documented in this encounter Plan of Treatment Upcoming Encounters Date Type Department Care Team (Latest Contact Info) Description 12/20/2023 8:00 AM CDT Comprehensive Visit Division of Gastroenterology in [place], [place] [address] [place] [phone] Audra Doss C.N.P. 1999 [place] [phone] Omid Dillard M.D. [address] [place] [phone] 12/29/2023 9:00 AM CDT Clinical Support Department of Nutrition and Diabetes Education in [place], [place] [address] [place] [phone] Calvin Bailey M.D. [address] [place] [phone] Maricruz Ryan M.S., RDN, LD [address] [place] [phone] 01/15/2024 8:00 AM CDT Procedure visit Department of Urology in [address] [phone] Alejandra Souza, P.A.-C. [address] [phone] Discharge Disposition: Home or Self Care 01/15/2024 11:45 AM CDT Appointment Division of Gastroenterology in [place], [place] [address] [place] [phone] Calvin Bailey M.D. [address] [place] [phone] documented as of this encounter Procedures Procedure Name Priority Date/Time Associated Diagnosis Comments LDA ANE ENDOTRACHEAL AIRWAY Routine 12/13/2023 1:23 PM CDT documented in this encounter Results * LDA ANE ENDOTRACHEAL AIRWAY (12/13/2023 1:23 [...] ETT location: oral VL device: glide scope Horton scope blade size: 3 Tube size: 7 [...] no complications Amarjit Smith APRN, CRNA ANESTHESIA ORDSera DAHL documented in this encounter Visit Diagnoses Not on filedocumented in this encounter Administered Medications Inactive Administered Medications - up to 3 most recent administrations Medication Order MAR Action Action Date Dose Rate Site D10W infusion intravenous, Continuous Infusion: Per Instructions PRN, Starting on Mon12/13/23 at 1336, Anesthesia Intra-op New Bag 12/13/2023 1:23 PM CDT ePHEDrine (PF) injection intravenous, As needed, Starting on Mon12/13/23 at 1355, Anesthesia Intra-op Given 12/13/2023 1:57 PM CDT 5 mg Given 12/13/2023 1:55 PM CDT 10 mg Lactated Ringer's intravenous, Continuous Infusion: Per Instructions PRN, Starting on Mon12/13/23 at 1312, Anesthesia Intra-op New Bag 12/13/2023 1:12 PM CDT lidocaine (PF) (cardiac) injection intravenous, As needed, Starting on Mon12/13/23 at 1319, Anesthesia Intra-op Given 12/13/2023 1:19 PM CDT 40 mg ondansetron (PF) injection (ZOFRAN) intravenous, As needed, Starting on Mon12/13/23 at 1344, Anesthesia Intra-op Given 12/13/2023 1:44 PM CDT 4 mg piperacillin-tazobactam in dextrose (iso osm) IVPB (ZOSYN) intravenous, Administer over 0.5 Hours, As needed, Starting on Mon12/13/23 at 1326, Anesthesia Intra-op Given 12/13/2023 1:26 PM CDT 3.375 g propofol 10 mg/mL infusion (DIPRIVAN) intravenous, Continuous Infusion: Per Instructions PRN, Starting on Mon12/13/23 at 1319, Anesthesia Intra-op New Bag 12/13/2023 1:19 PM CDT 100 mcg/kg/min 33.36 mL/hr propofoL injection (DIPRIVAN) intravenous, As needed, Starting on Mon12/13/23 at 1319, Anesthesia Intra-op Given 12/13/2023 1:30 PM CDT 30 mg Given 12/13/2023 1:19 PM CDT 100 mg succinylcholine (PF) injection (ANECTINE) intravenous, As needed, Starting on Mon12/13/23 at 1319, Anesthesia Intra-op Given 12/13/2023 1:19 PM CDT 80 mg documented in this encounter
--- OUTSIDE RECORDS SUMMARY | 2023-12-18 17:54 | XMS_ITS | Encounter Summary ---
Author Name Unknown Organization [facility] Address [address] [place] [address] Care Team Providers Care Hogshead Builder Name Role Phone Unavailable Primary Care Provider Unavailabl e Encounter Details Date Type Department Care Team (Latest Contact Info) Description 12/13/2023 Intake [facility] Social History Tobacco Use Types Packs/Day Years Used Date Smoking Tobacco: Never Smokeless Tobacco: Never Alcohol Use Standard Drinks/Week Comments No 0 (1 standard drink = 0.6 oz pur e alcohol) [facility] Utilities Answer Date Recorded In the past 12 months has [facility] electric, gas, oil, or water company threatened [...] your living situation today? I have a [facility] place to live 12/13/2023 Sex and [...] CDT Comprehensive Visit Division of Gastroenterology in [place], [place] [address] [place] [phone] Audra Doss C.NMj [address] [place] [phone] [place] [phone] 12/29/2023 9:00 AM CDT Clinical Support Department of Nutrition and Diabetes Education in [place], [place] [address] [place] [phone] Calvin Bailey M.D. [address] [place] [phone] Maricruz Ryan M.S., RDN, LD [address] [place] [phone] 01/15/2024 8:00 AM CDT Procedure visit Department of Urology in [address] [phone] Alejandra Souza P.A.-C. [address] [phone] Discharge Disposition: Home or Self Care 01/15/2024 11:45 AM CDT Appointment Division of Gastroenterology in [place], [place] [address] [place] [phone] Calvin Bailey M.D. [address] [place] [phone] documented as of this encounter Visit Diagnoses Not on filedocumented in this encounter
--- OUTSIDE RECORDS SUMMARY | 2023-12-18 17:54 | XMS_ITS | Encounter Summary ---
Author Name Unknown Organization [facility] Address [address] [place] [phone] Care Team Providers Care Quarter Seamer Name Role Phone Unavailable Primary Care Provider Unavailabl e Encounter Details Date Type Department Care Team ([facility] st Contact Info) Description 12/04/2023 Patient Outreach Department of Oncology in [place], [place] [address] [place] [phone] Dariela Palmer, RHerbertN. [address] [place] [phone] Social History Tobacco Use Types Packs/Day Years Used Date Smoking Tobacco: Never Smokeless Tobacco: Never Alcohol Use Standard Drinks/Week Comments No 0 (1 standard drink = 0.6 oz pur e alcohol) [facility] Utilities Answer Date Recorded In the past 12 months has e electric, gas, oil, or water [employer] threatened to shut off services in your [...] your living situation today? I have a [facility] place to live 11/29/2023 Sex and [...] CDT Comprehensive Visit Division of Gastroenterology in [place], [place] [address] [place] [phone] Audra Doss C.NAlcira. 1999 [place] [phone] Omid Dillard M.D. [address] [place] [phone] 12/29/2023 9:00 AM CDT Clinical Support Department of Nutrition and Diabetes Education in [place], [place] [address] [place] [phone] Calvin Bailey M.D. [address] [place] [phone] Maricruz Ryan M.S., RDN, LD [address] [place] [phone] 01/15/2024 8:00 AM CDT Procedure visit Department of Urology in [place], [place] [address] [place] [phone] Alejandra Souza P.A.-C. [address] [phone] Discharge Disposition: Home or Self Care 01/15/2024 11:45 AM CDT Appointment Division of Gastroenterology in [place], [place] [address] [place] [phone] Calvin Bailey M.D. [address] [place] [phone] documented as of this encounter Visit Diagnoses Not on filedocumented in this encounter
--- OUTSIDE RECORDS SUMMARY | 2023-12-18 17:54 | XMS_ITS | Encounter Summary ---
Author Name Unknown Organization [facility] Address [address] [place] [address] Care Team Providers Care Promotions Assistant Sales Marketing Name Role Phone Unavailable Primary Care Provider Unavailabl e Reason for Referral * MRI/CAT/PET Scan (Routine) - Closed Specialty Diagnoses / Procedures Referred By Gary elliott Referred To Contact Radiology Diagnoses Mass Pancreas Procedures CT Pancreas Angiogram Triple Phase and Pelvis with IV Contrast Calvin Bailey M.D. [address] [place] [phone] [facility] Referral ID Status Reason Start Date Expiration Date Visits Re quested Visits Authorized [id number] Closed 11/30/2023 11/29/2024 1 1 Reason for Visit * MRI/CAT/PET Scan (Routine) - Closed Specialty Diagnoses / Procedures Referred By Gary elliott Referred To Contact Radiology Diagnoses Mass Pancreas Procedures CT Pancreas Angiogram Triple Phase and Pelvis with IV Contrast Calvin Bailey M.D. [address] [place] [phone] [facility] Referral ID Status Reason Start Date Expiration Date Visits Re quested Visits Authorized [id number] Closed 11/30/2023 11/29/2024 1 1 Encounter Details Date Type Department Care Team (Latest Contact Info) Description 12/12/2023 11:34 AM CDT - 12/12/2023 11:59 PM CDT Hospital Encounter Department of Radiology, [facility], in [place], [place] [address] [place] [address] [place] [phone] Calvin Bailey M.D. 200 [place] [phone] Mass Pancreas Discharge Disposition: Home or Self Care Social History Tobacco Use Types Packs/Day Years Used Date Smoking Tobacco: Never Smokeless Tobacco: Never Alcohol Use Standard Drinks/Week Comments No 0 (1 standard drink = 0.6 oz pur e alcohol) [facility] Utilities Answer Date Recorded In the past 12 months has e [employer], gas, oil, or water [employer] threatened to shut off services in your [...] your living situation today? I have a [facility] place to live 12/13/2023 Sex and Gender Information Value Date Recorded Sex Assigned at Female 11/29/2023 7:47 PM CDT Gender Identity Female 11/29/2023 7:47 PM CDT Sexual Orientation Straight 11/29/2023 7: 47 PM CDT documented as of this encounter Medications at Time of Discharge Medication Sig Dispensed Refills Start Date End Date A LIPOIC [id number] ORAL Take by mouth daily. 11/02/2023 acetaminophen (TYLENOL) 325 mg tablet Take 650 mg by mouth every 6 (six) hours as needed for pain. 01/20/2023 atorvastatin (LIPITOR) 20 mg tablet Take 1 tablet by mouth daily with dinner. 01/05/2023 B complex-vitamin (SUPER B-50) capsule Take 1 tablet by mouth daily. 11/02/2023 blood sugar diagnostic strips (Contour Next Test Strips) Dispense item covered by pt ins.TEST 3 TIMES DAILY. 02/24/2021 flash glucose scanning reader (FreeStyle Barbie 14 Day [place]) by other route. 08/25/2022 flash glucose scanning reader (FREESTYLE BARBIE) by other route. 08/25/2022 flash glucose sensor (FREESTYLE BARBIE) kit by other route. 04/25/2023 glipiZIDE (GLUCOTROL) 5 mg tablet Take 2.5-5 mg by mouth 2 (two) times a day before breakfast and dinner. 5 mg in the morning and 2.5 mg in the evening 10/08/2021 aspirin 81 mg capsule Take 81 mg by mouth daily. 03/16/2023 12/13/[address] tablet Take 1 tablet by mouth daily. 01/06/2023 12/13/2023 blood-glucose sensor (FreeStyle Barbie 3 Sensor) device by other route. 08/25/2022 12/13/2023 blood-glucose sensor (FreeStyle Barbie 3 Sensor) device by other route. 08/25/2022 12/13/2023 cholecalciferol (REPLESTA) 1,250 mcg (50,000 unit) wafer Take 1,000 Units by mouth. 01/30/2023 12/13/2023 clopidogreL (PLAVIX) 75 mg tablet Take 1 tablet by mouth daily. 01/05/2023 12/15/2023 clopidogreL (Plavix) 75 mg tablet Take 75 mg by mouth. 01/28/2023 024 d-mannose 500 mg capsule Take by mouth. 11/02/2023 12/14/2023 estradioL (Estrace) 0.1 mg/g (0.01%) vaginal cream by other route. 09/22/2022 12/13/2023 estradioL (ESTRACE) 0.1 mg/g (0.01%) vaginal cream Apply dime-sized amount to the external urethra 3 nights weekly. No need for vaginal applicator or insertion 42.5 g 5 10/18/2023 12/13/2023 estradioL (ESTRING) 2 mg (7.5 mcg /24 hour) vaginal ring by other route. 11/06/2023 12/13/2023 flash glucose sensor (FREESTYLE BARBIE) kit by other route. 08/25/202208/2023 glipiZIDE (GLUCOTROL) 10 mg tablet Take 10 mg by mouth. 10/20/2017 024 ketorolac (ACULAR) 0.5 % ophthalmic solution Administer 1 drop into the left eye 4 (four) times a day. Start 2 days piror to surgery and use until empty 5 mL 1 06/11/2018 12/13/2023 ketorolac (ACULAR) 0.5 % ophthalmic solution Administer 1 drop into the right eye 4 (four) times a day. Start 2 days piror to surgery and use until empty 5 mL 1 06/02/2018 12/13/2023 metFORMIN (GLUCOPHAGE) 500 mg tablet Take 500 mg by mouth. 05/14/201812/12 moxifloxacin (VIGAMOX) 0.5 % ophthalmic solution Administer 1 drop into the left eye 4 (four) times a day. Start 2 days prior to surgery. Use until bottle is empty 3 mL 1 06/11/2018 12/13/2023 moxifloxacin (VIGAMOX) 0.5 % ophthalmic solution Administer 1 drop into the right eye 4 (four) times a day. Start 2 days prior to surgery and use until empty 3 mL 1 06/02/2018 12/13/2023 nitrofurantoin (MACRODANTIN) 25 mg capsule Take 50 mg by mouth. 09/08/2023 024 nitrofurantoin (MACRODANTIN) 50 mg capsule Take 50 mg by mouth daily. 12/13/2023 OMEGA-3 FATTY ACIDS-EPA ORAL Take 1 capsule by mouth. 06/06/2012 12/14/2023 pravastatin (PRAVACHOL) 20 mg tablet Take 20 mg by mouth. 05/29/2018 prednisoLONE acetate (PRED FORTE) 1 % ophthalmic suspension Administer 1 drop into the right eye 4 (four) times a day. Start 2 days prior to surgery and use for at least 30 days 10 mL 06/11/2018 12/13/2023 prednisoLONE acetate (PRED FORTE) 1 % ophthalmic suspension Administer 1 drop into the left eye 4 (four) times a day. Start 2 days prior to surgery and use for 30 days following. 10 mL 1 06/11/2018 12/13/2023 sennosides-docusate sodium (SENOKOT-S) 8.6-50 mg per tablet Take 1-4 tablets by mouth. 01/20/2023 12/13/2023 triamcinolone (KENALOG) 0.025 % cream Apply topically. 11/02/2023 12/13/2023 ubiquinone (COENZYME Q10) 100 mg tablet Take by mouth. 07/02/2013 024 documented as of this encounter Plan of Treatment Upcoming Encounters Date Type Department Care Team (Latest Contact Info) Description 12/20/2023 8:00 AM CDT Comprehensive Visit Division of Gastroenterology in [place], [place] [address] [place] [phone] Audra Doss C.N.P. [address] [place] [phone] Omid Dillard M.D. [address] [place] [phone] 12/29/2023 9:00 AM CDT Clinical Support Department of Nutrition and Diabetes Education in [place], [place] [address] [place] [phone] Calvin Bailey M.D. [address] [place] [phone] Maricruz Ryan M.S., RDN, LD [address] [place] [phone] 01/15/2024 8:00 AM CDT Procedure visit Department of Urology in [address] [phone] Alejandra Souza P.A.-C. [address] [phone] Discharge Disposition: Home or Self Care 01/15/2024 11:45 AM CDT Appointment Division of Gastroenterology in [place], [place] [address] [place] [phone] Calvin Bailey M.D. [address] [place] [phone] documented as of this encounter Procedures Procedure [...]
--- OUTSIDE RECORDS SUMMARY | 2023-12-18 17:54 | XMS_ITS | Encounter Summary ---
Author Name Unknown Organization [facility] Address [address] [place] [address] Care Team Providers Care Pile Driver Engineer Name Role Phone Unavailable Primary Care Provider Unavailabl e Encounter Details Date Type Department Care Team (Latest Contact Info) Description 12/13/2023 1:10 PM CDT Ancillary Procedure Department of Gastroenterology Social History Tobacco Use Types Packs/Day Years Used Date Smoking Tobacco: Never Smokeless Tobacco: Never Alcohol Use Standard Drinks/Week Comments No 0 (1 standard drink = 0.6 oz pur e alcohol) [facility] Utilities Answer Date Recorded In the past 12 months has e electric, gas, oil, or water company [...] your living situation today? I have a [facility] place to live 12/13/2023 Sex and [...] CDT Comprehensive Visit Division of Gastroenterology in [place], [place] [address] [place] [phone] Audra Doss C.NHerbertP. [address] [place] [phone] Omid Dillard M.D. 200 [place] [phone] 12/29/2023 9:00 AM CDT Clinical Support Department of Nutrition and Diabetes Education in [place], [place] [address] [place] [phone] Calvin Bailey M.D. [address] [place] [phone] Maricruz Ryan M.S., RDN, LD [address] [place] [phone] 01/15/2024 8:00 AM CDT Procedure visit Department of Urology in [place], [place] [address] [place] [phone] Alejandra Souza P.A.-C. [address] [phone] Discharge Disposition: Home or Self Care 01/15/2024 11:45 AM CDT Appointment Division of Gastroenterology in [place], [place] [address] [place] [phone] Calvin Bailey M.D. [address] [place] [phone] documented as of this encounter Procedures Procedure Name Priority Date/Time Associated Diagnosis Comments GASTROENTEROLOGY IMAGE EXAM Routine 12/13/2023 1:10 PM CDT documented in this encounter Results * ERCP-Gastroenterology Image Exam (12/13/2023 1:10 PM CDT) 12/13/2023 1:09 PM CDT Narrative IIMS - 12/13/2023 2:11 PM CDT This order has been created and auto-finalized to support the import of images acquired without order. The clinical documentation to support these images can be found on the encounter that produced images. Provider Not In System IMG NON RAD IMAGI NG PROCEDURES IIMS NA documented in this encounter Visit Diagnoses Not on filedocumented in this encounter
--- OUTSIDE RECORDS SUMMARY | 2023-12-18 17:54 | XMS_ITS | Encounter Summary ---
Author Name Unknown Organization [facility] Address [address] [place] [address] Care Team Providers Care Communications Consultant Name Role Phone Unavailable Primary Care Provider Unavailabl e Encounter Details Date Type Department Care Team (Latest Contact Info) Description 12/13/2023 12:41 PM CDT - 12/13/2023 11:59 PM CDT Hospital Encounter Department of Radiology, [place], [place] [address] [place] [phone] Malka Montero M.D. [address] [place] [phone] Discharge Disposition: Home or Self Care Social History Tobacco Use Types Packs/Day Years Used Date Smoking Tobacco: Never Smokeless Tobacco: Never Alcohol Use Standard Drinks/Week Comments No 0 (1 standard drink = 0.6 oz pur e alcohol) [facility] Utilities Answer Date Recorded In the past 12 months has [employer] gas, oil, or water [employer] threatened to shut off services in your [...] Refills Start Date End Date A LIPOIC [id number] ORAL Take by mouth daily. 11/02/2023 acetaminophen (TYLENOL) 325 mg tablet Take 650 mg by mouth every 6 (six) hours as needed for pain. 01/20/[address] tablet Take 81 mg by mouth daily. atorvastatin (LIPITOR) 20 mg tablet Take 1 tablet by mouth daily with dinner. 01/05/2023 B complex-vitamin (SUPER B-50) capsule Take 1 tablet by mouth daily. 11/02/2023 blood sugar diagnostic strips (Contour Next Test Strips) Dispense item covered by pt ins.TEST 3 TIMES DAILY. 02/24/2021 cholecalciferol, vitamin D3, 25 mcg (1,000 Unit) tablet Take 25 mcg by mouth daily. ciprofloxacin (CIPRO) 500 mg tabletIndications:Intr a-abdominal infection, community acquired Take 1 tablet (500 mg total) by mouth 2 (two) times a day before breakfast and dinner for 9 doses Indications: Intra-abdominal infection, community acquired. 9 tablet 12/15/2023 12/20/2023 clopidogreL (Plavix) 75 mg tablet Take 1 tablet (75 mg total) by mouth daily for 23 days. 23 tablet 12/15/2023 01/07/2024 d-mannose (AZO D-Mannose) 500 mg capsule Take 2 capsules by mouth daily. flash glucose scanning reader ([employer] Barbie 14 Day [place]) by other route. 08/25/2022 flash glucose scanning reader (FREESTYLE BARBIE) by other route. 08/25/2022 flash glucose sensor (FREESTYLE BARBIE) kit by other route. 04/25/2023 glipiZIDE (GLUCOTROL) 5 mg tablet Take 2.5-5 mg by mouth 2 (two) times a day before breakfast and dinner. 5 mg in the morning and 2.5 mg in the evening 10/08/2021 metroNIDAZOLE (FLAGYL) 500 mg tabletIndications:Intr a-abdominal infection, community acquired Take 1 tablet (500 mg total) by mouth 3 (three) times a day for 4 days Indications: Intra-abdominal infection, community acquired. 12 tablet 12/15/2023 12/19/2023 nitrofurantoin (MACRODANTIN) 50 mg capsule Take 50 mg by mouth daily. UTI prevention sennosides-docusate sodium (SENOKOT-S) 8.6-50 mg per tablet Take 1 tablet by mouth 2 (two) times a day. 30 tablet 1 12/15/2023 clopidogreL (PLAVIX) 75 mg tablet Take 1 tablet by mouth daily. 01/05/2023 12/15/2023 d-mannose 500 mg capsule Take by mouth. 11/02/2023 12/14/2023 OMEGA-3 FATTY ACIDS-EPA ORAL Take 1 capsule by mouth. 06/06/2012 12/14/2023 ubiquinone (COENZYME Q10) 100 mg tablet Take by mouth. 07/02/2013 024 documented as of this encounter Plan of Treatment Upcoming Encounters Date Type Department Care Team (Latest Contact Info) Description 12/20/2023 8:00 AM CDT Comprehensive Visit Division of Gastroenterology in [place], [place] [address] [place] [phone] Audra Doss C.N.P. 1999 [place] [phone] Omid Dillard M.D. [address] [place] [phone] 12/29/2023 9:00 AM CDT Clinical Support Department of Nutrition and Diabetes Education in [place], [place] [address] [place] [phone] Calvin Bailey M.D. [address] [place] [phone] Maricruz Ryan M.S., RDN, LD [address] [place] [phone] 01/15/2024 8:00 AM CDT Procedure visit Department of Urology in [address] [phone] Alejandra Souza, MassielAHerbert-C. [address] [phone] Discharge Disposition: Home or Self Care 01/15/2024 11:45 AM CDT Appointment Division of Gastroenterology in [place], [place] [address] [place] [address] Calvin Bailey M.D. [address] [place] [phone] documented as of this encounter Procedures Procedure Name Priority Date/Time Associated Diagnosis Comments FL FLUORO LESS THAN 1 HOUR RAD - Routine (most inpatients and all outpatients) 12/13/2023 2:05 PM CDT documented in this encounter Results * FL Fluoro Less Than 1 Hour (12/13/2023 2:05 PM CDT) Narrative ERCP LOS RST - 12/13/2023 2:06 PM CDT This exam does not require a radiologist review or interpretation. Please refer to the patient's medical record on this date for clinical details. Malka SANTOS FLUOROSCOPY PROC EDURES ERCP LOS RST documented in this encounter Visit Diagnoses Not on filedocumented in this encounter
--- OUTSIDE RECORDS SUMMARY | 2023-12-18 17:54 | XMS_ITS | Encounter Summary ---
Author Name Unknown Organization [facility] Address [address] [place] [address] Care Team Providers Care Pan Washer Name Role Phone Unavailable Primary Care Provider Unavailabl e Encounter Details Date Type Department Care Team (Late st Contact Info) Description 12/13/2023 5:35 AM CDT Ancillary Procedure Department of Radiology in [place], [place] [address] [place] [phone] Vahid Kaplan M.D. [address] [place] [phone] Social History Tobacco Use Types Packs/Day Years Used Date Smoking Tobacco: Never Smokeless Tobacco: Never Alcohol Use Standard Drinks/Week Comments No 0 (1 standard drink = 0.6 oz pur e alcohol) [facility] Utilities Answer Date Recorded In the past 12 months has [facility] [employer], gas, oil, or water [employer] threatened to shut off services in your [...] your living situation today? I have a [facility] place to live 12/13/2023 Sex and [...] CDT Comprehensive Visit Division of Gastroenterology in [place], [place] [address] [place] [address] Audra Doss, C.N.P. [address] [place] [phone] Omid Dillard M.D. [address] [place] [phone] 12/29/2023 9:00 AM CDT Clinical Support Department of Nutrition and Diabetes Education in [place], [place] [address] [place] [phone] Calvin Bailey M.D. [address] [place] [phone] Maricruz Ryan M.S., RDN, LD [address] [place] [phone] 01/15/2024 8:00 AM CDT Procedure visit Department of Urology in [address] [phone] Alejandra Souza P.A.-C. [address] [phone] Discharge Disposition: Home or Self Care 01/15/2024 11:45 AM CDT Appointment Division of Gastroenterology in [place], [place] [address] [place] [phone] Calvin Bailey M.D. [address] [place] [phone] documented as of this encounter Procedures Procedure Name Priority Date/Time Associated Diagnosis Comments INTERPRETATION OF OUTSIDE CT ABDOMEN AND OR PELVIS RAD - Routine (most inpatients and all outpatients) 12/13/2023 6:14 AM CDT documented in this encounter Results * Interpretation of Outside CT Abdomen and [...] biliary duct dilation when compared to later [place] performed on the same day. 2. [...] IV contrast dated 12/12/2023. COMPARISON: ??Later performed [place] [facility] on the same day. FINDINGS: ?? 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 This examination was performed in conjunction with a CT of the chest. Procedure Note Manjit Scott D.O. - 12/13/2023 EXAM: INTERPRETATION OF OUTSIDE CT ABDOMEN AND OR PELVIS CT abdomen andpelvis with IV contrast dated 12/12/2023. COMPARISON: Later performed [place] [facility] on the same day. FINDINGS: Redemonstration of short segment distal common bile duct stricture (series4 image 151) with upstream biliary biliary debris (but withoutidentifiable obstructive stone or mass) and upstream biliary ductaldilation, but overall less severe since later performed [place], for intrahepatic biliary ductal dilation has [...] has not significantly changed compared to laterperformed [place] CT. This examination was performed in conjunction with a CT of the chest. IMPRESSION: 1. 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 2. Inflammation of the biliary tree with imaging findings indicative ofcholangitis. No intrahepatic abscess identified. 3. Similar prominent gastrohepatic and portacaval lymph nodes which couldbe reactive, however, indeterminate given the potential malignant etiologyof the common bile duct stricture. 4. Mild inflammation extending from the splenic flexure to rectum. Nopericolonic abscess or bowel obstruction. Vahid SANTOS CT PROCEDU RES documented in this encounter Visit Diagnoses Not on filedocumented in this encounter
--- OUTSIDE RECORDS SUMMARY | 2023-12-18 17:54 | XMS_ITS | Encounter Summary ---
Author Name Unknown Organization [facility] Address [address] [place] [address] Care Team Providers Care Special Effects Specialist Name Role Phone Unavailable Primary Care Provider Unavailabl e Encounter Details Date Type Department Care Team (Latest Contact Info) Description 12/12/2023 Clinical Communication Division of Gastroenterology in [place], [place] [address] [place] [address] Prescheduling, Provider Social History Tobacco Use Types Packs/Day Years Used Date Smoking Tobacco: Never Smokeless Tobacco: Never Alcohol Use Standard Drinks/Week Comments No 0 (1 standard drink = 0.6 oz pur e alcohol) [facility] Utilities Answer Date Recorded In the past 12 months has e [employer], gas, oil, or water [employer] threatened to shut off services in your [...] your living situation today? I have a [facility] place to live 12/13/2023 Sex and Gender Information Value Date Recorded Sex Assigned at Female 11/29/2023 7:47 PM CDT Gender Identity Female 11/29/2023 7:47 PM CDT Sexual Orientation Straight 11/29/2023 7: 47 PM CDT documented as of this encounter Plan of Treatment Upcoming Encounters Date Type Department Care Team (Latest Contact Info) Description 12/20/2023 8:00 AM CDT Comprehensive Visit Division of Gastroenterology in [place], [place] 200 [place] [phone] Audra Doss C.N.P. [address] [place] [phone] [place] [phone] 12/29/2023 9:00 AM CDT Clinical Support Department of Nutrition and Diabetes Education in [place], [place] [address] [place] [address] Calvin Bailey M.D. [address] [place] [phone] Maricruz Ryan M.S., RDN, LD [address] [place] [phone] 01/15/2024 8:00 AM CDT Procedure visit Department of Urology in [address] [phone] Alejandra Souza P.A.-C. [address] [phone] Discharge Disposition: Home or Self Care 01/15/2024 11:45 AM CDT Appointment Division of Gastroenterology in [place], [place] [address] [place] [phone] Calvin Bailey M.D. [address] [place] [phone] documented as of this encounter Visit Diagnoses Not on filedocumented in this encounter
--- OUTSIDE RECORDS SUMMARY | 2023-12-18 17:54 | XMS_ITS | Encounter Summary ---
Author Name Unknown Organization [facility] Address [address] [place] [id number] Care Team Providers Care Cutter Inspector Name Role Phone Unavailable Primary Care Provider Unavailabl e Encounter Details Date Type Department Care Team (Latest Contact Info) Description 12/12/2023 10:26 AM CDT - 12/12/2023 11:33 AM CDT Hospital Encounter Department of Laboratory Medicine and Pathology, [place], [place] [address] [place] [address] Calvin Bailey M.D. [address] [place] [phone] Mass Pancreas Discharge Disposition: Home or Self Care Social History Tobacco Use Types Packs/Day Years Used Date Smoking Tobacco: Never Smokeless Tobacco: Never Alcohol Use Standard Drinks/Week Comments No 0 (1 standard drink = 0.6 oz pur e alcohol) [facility] Utilities Answer Date Recorded In the past 12 months has [employer], gas, oil, or water [employer] threatened to shut off services in your [...] your living situation today? I have a [facility] place to live 12/13/2023 Sex and Gender Information Value Date Recorded Sex Assigned at Female 11/29/2023 7:47 PM CDT Gender Identity Female 11/29/2023 7:47 PM CDT Sexual Orientation Straight 11/29/2023 7: 47 PM CDT documented as of this encounter Medications at Time of Discharge Medication Sig Dispensed Refills Start Date End Date A LIPOIC MNMA-JKAFFO-WUUEZHAQU ORAL Take by mouth daily. 11/02/2023 acetaminophen [...] glucose scanning reader ([employer] 14 Day [place]) by other route. 08/25/2022 flash glucose scanning [...] tablet Take 10 mg by mouth. 10/20/2017 ketorolac (ACULAR) 0.5 % ophthalmic solution Administer [...] capsule Take 50 mg by mouth. 09/08/2023 nitrofurantoin (MACRODANTIN) 50 mg capsule Take 50 [...] CDT Comprehensive Visit Division of Gastroenterology in [place], [place] [address] [place] [address] Audra Doss C.NHerbertPHerbert [address] [place] [phone] Omid Dillard M.D. [address] [place] [address] 12/29/2023 9:00 AM CDT Clinical Support Department of Nutrition and Diabetes Education in [place], [place] [address] [place] [address] Calvin Bailey M.D. [address] [place] [address] Maricruz Ryan M.S., RDN, LD [address] [place] [address] 01/15/2024 8:00 AM CDT Procedure visit Department of Urology in [address] [phone] Alejandra Souza P.A.-CHerbert [address] [address] Discharge Disposition: Home or Self Care 01/15/2024 11:45 AM CDT Appointment Division of Gastroenterology in [place], [place] [address] [place] [address] Calvin Bailey M.D. [address] [place] [phone] Pending Results Name Type Priority Associated Diagnoses [...] Mass Pancreas PREALBUMIN (PAB), S Routine 12/12/2023 1 0:43 AM CDT Mass Pancreas HEMOGLOBIN A1C, B [...] M.D. LAB BLOOD ADD-ON Performing Organization Address City/[facility]/ZIP Co de Phone Number [facility] 200 [place], [place] [id number] [place] [address] [facility] 200 [place] [address] * (ABNORMAL) Prothrombin Time (PT) (12/12/2023 10:43 [...] Calvin Bailey M.D. LAB BLOOD ADD-ON [facility] [address] [place] [address], [facility] [address] [place] [address] * Prealbumin (PAB) (12/12/2023 10:43 AM CDT) Prealbumin (PAB), S 22 19 - 38 mg/dL 12/13/2023 10:38 AM CDT [facility] Blood (Blood, Venous) 12/12/2023 10:43 AM CDT 12/13/2023 6:44 AM CDT Calvin Bailey M.D. LAB BLOOD ADD-ON Performing Organization Address City/[facility] Co de Phone Number [facility] [address] [place] [address] [facility] [address] [place] [address] * (ABNORMAL) Carbohydrate Antigen 19-9 (CA 19-9) (12/12/2023 10:43 AM CDT) Carbohydrate Ag 19-9, S 84(H) <35 U/mL 12/12/2023 3:08 PM CDT [facility] Comment: ----ADDITIONAL INFORMATION---- The testing method is an immunoenzymatic assay manufactured by [employer]. and performed on the [employer] 800. ? Values obtained with different assay methods or kits may be different and cannot be used interchangeably. ? Test results cannot be interpreted as absolute evidence for the presence or absence of malignant disease. Blood (Blood, Venous) 12/12/2023 10:43 AM CDT 12/12/2023 2:07 PM CDT Calvin Bailey M.D. LAB BLOOD ADD-ON Performing Organization Address City/[facility] Co de Phone Number [facility] [address] [place] [address] [facility] [address] [place] [address] * (ABNORMAL) Bilirubin, Direct (12/12/2023 10:43 AM CDT) Bilirubin, Direct, S 1.4(H) 0.0 - 0.3 mg/dL 12/12/2023 11:42 AM CDT DTL Blood (Blood, Venous) 12/12/2023 10:43 AM CDT 12/12/2023 11:24 AM CDT Calvin Bailey M.D. LAB BLOOD ADD-ON [facility] [address] [place] [address], [facility] DTL [facility] [address] [place] [address] * (ABNORMAL) Comprehensive Metabolic Panel (12/12/2023 10:43 AM CDT) Pathologist [facility] Potassium, S 5.1 3.6 - 5.2 mmol/L [...] Calvin Bailey M.D. LAB BLOOD ADD-ON [facility] [address] [place] [address], [facility] [address] [place] [address] * (ABNORMAL) CBC with Differential, Blood (12/12/2023 [...] Calvin Bailey M.D. LAB BLOOD ADD-ON [facility] [address] [place] [address], [facility] DTL [facility] [address] [place] [address] [facility] [address] [place] [address] documented in this encounter Visit Diagnoses Diagnosis Mass Pancreas documented in this encounter
--- OUTSIDE RECORDS SUMMARY | 2023-12-18 17:54 | XMS_ITS | Encounter Summary ---
Author Name Unknown Organization [facility] Address [address] [place] [id number] Care Team Providers [facility] Nurse Name Role Phone Unavailable Primary Care Provider Unavailabl e Encounter Details Date Type Department Care Team (Latest Contact Info) Description 12/13/2023 4:12 AM CDT - 12/15/2023 1:09 PM CDT Hospital Encounter [facility], [facility], Fourth Floor [address] [place] [phone] Naun Moore M.B., Ch.B. [address] [place] [phone] Vipul Caraballo M.D. [address] [place] [phone] Discharge Disposition: Home or Self Care Social History Tobacco Use Types Packs/Day Years Used Date Smoking Tobacco: Never Smokeless Tobacco: Never Alcohol Use Standard Drinks/Week Comments No 0 (1 standard drink = 0.6 oz pur e alcohol) [facility] Utilities Answer Date Recorded In the past 12 months has e Crunched, gas, oil, or water company threatened to [...] your living situation today? I have a [facility] place to live 12/13/2023 Sex and Gender Information Value Date Recorded Sex Assigned at Female 11/29/2023 7:47 PM CDT Gender Identity Female 11/29/2023 7:47 PM CDT Sexual Orientation Straight 11/29/2023 7: 47 PM CDT documented as of this encounter Last Filed [...] Mass Index 23.94 12/13/2023 4:18 AM CDT documented in this encounter Discharge Summaries * Surinder Conroy M.D. - 12/15/2023 12:03 PM CDT DISCHARGE SUMMARY BRIEF OVERVIEW Hospital: [facility] Discharge Provider: Vipul Caraballo M.D. Primary Team: [facility] Medicine 1 ([facility]) No primary care provider on file. 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 EUS/ERCP should be performed no later than 6 weeks after discharge. Scheduled for 01/14 at the time of discharge. Hold Plavix (for prior stroke) for one week prior to EUS/ERCP. Resume Plavix afterward at discretion of outpatient providers. She is okay to remain on aspirin. Follow-up cytology/FISH from inpatient ERCP to evaluate for cancer. Medication Changes: Started: Ciprofloxacin (EOT 12/18) Metronidazole (EOT 12/18) Modified: Plavix prescription written to end on 01/06 with the plan to hold for one week in anticipation of EUS/ERCP on 01/14. After procedure, Plavix can be restarted (per interventionalist) but a new prescription may need to be written. If she is NPO for EUS/ERCP, she should also hold glipizide the morning of procedure. Nutrition Discharge Plan: Patient was assessed as severely malnourished in setting of acute illness during this hospitalization based upon the ASPEN criteria. Outpatient follow-up recommended by RDN: Recommend PCP monitor patient and refer for outpatient follow-up with dietitian regarding malnutrition as indicated OUTPATIENT FOLLOW UP Scheduled Appointments 12/20/2023 8:00 AM Sam Lee M.D.; [facility] 01 [facility] Gastroenterology and Hepatology 12/29/2023 9:00 AM Maricruz Ryan M.S., MARY, LD Nutrition 01/15/2024 8:00 AM Alejandra Souza P.A.-C.; [facility] 01 [facility] Urology 01/15/2024 11:45 AM RM 203 EUS ERCP [facility] 2 GI Gastroenterology and Hepatology For appointment details refer to your Patient Appointment Guide. TEST RESULTS PENDING AT DISCHARGE Pending Labs Order Current Status Biliary Tract Malignancy, FISH In process Biliary Tract Malignancy-Cytology, FISH In process Bacteria / Windy Culture, Blood #1 Preliminary result Bacteria / Windy Culture, Blood #2 Preliminary result DETAILS OF HOSPITAL STAY REASON FOR ADMISSION Stone Common Duct HOSPITAL COURSE Ms. Charla Graham is a 83 y.o. female who presented with elevated LFTs and bilirubin and was treated for cholangitis. PMH is significant for diabetes, HLD HTN, left ICA stroke in 12/2022 (s/p thrombolysis and endovascular management, on plavix), recurrent UTIs with recent antimicrobials, and hearing loss. Concern for acute on chronic biliary obstruction. She had an episode of severe pain, chills and confusion for which she presented to [facility] ED where her workup was suggestive of ascending cholangitis for which she was started on ceftriaxone and metronidazole and transferred to [facility]. On arrival she did not have any active symptoms and was continued to be managed on the same antibiotics. She was evaluated by GI and they did an ERCP on 12/12 where they placed a temporary stent in the CBD and drained pus and bile. They also took sample for cytology during ERCP. Due to her being on plavixfor previous stroke they did not perform a sphincterotomy. GI also suggested getting an EUS to further assess for any periampullary masses/tumors considering chronic history and family history (unclear) of mothers due to gallbladder issues. Her Plavix will need to be held for 1 week prior to intervention (at time of discharge, this is scheduled for 01/14). The day of discharge she was switched to ciprofloxacin and metronidazole for oral abx regimen. CONSULTS ORDERED DURING THIS ADMISSION IP CONSULT TO HEPATOLOGY HUMANITIES IN MEDICINE SERVICES (HOSPITAL) IP CONSULT TO DIETITIAN IP CONSULT TO CARE MANAGEMENT IP CONSULT TO CARE MANAGEMENT CONDITION AT DISCHARGE good Discharge instructions were provided to the patient and caregiver(s). Total time spent in discharge services today: 60 minutes. documented in this encounter Discharge Instructions * Discharge Instructions* Surinder Conroy M.D. - 12/13/2023 7:06 AM CDT Course: You were admitted to the hospital for an infection of your bile ducts related. This was caused by anarrowing in your bile duct that allowed bacteria to build up. While you were here we performed a procedure called an ERCP to place a stent in the bile duct to open it up. GI is planning to do a similar procedure in the coming weeks to reduce the chances this happens again. You should continue your antibiotics (ciprofloxacin and metronidazole) through 12/18. You should takeyour Plavix on discharge but you will need to stop taking it one week prior to your GI procedure. After your procedure make sure to ask your provider when it is safe to resume this medication. Return Precautions: If you experience chest pain, palpitations, shortness of breath, fainting episodes, calf pain/redness, bleeding, abdominal pain, or fevers/chills, please present to the emergency department and/or contact your primary care provider. Thank you for choosing [facility] for your medical care. It was our pleasure to take care of you! Best regards, Surinder Conroy M.D. * Discharge Instr - Diet* Suzi Queen M.S., RDN, LD - 12/14/2023 3:31 PM CDT NUTRITION Date Completed: 12/14/2023 Phone contact: Height: 152.4 cm Weight: 55.6 kg Admission Weight: 55.6 kg BMI (Calculated): 23.9 kg/m?? Diet Order: General Estimated Needs: Total Calorie Needs: 4783-3539 calories/day Method to Estimate Energy Needs: kcal/kg (25-30 kcal/kg) Weight Used for Equation Calculations: 55.6 kg Total Protein Needs: 56 - 72 grams/day Method to Estimate Protein Needs (g/kg): 1 - 1.3 gm/kg Weight Used to Calculate Protein Needs (Kg): 55.6 kg Nutrition Interventions: Increase nutrition intake with small, frequent meals Medical food supplement(s) of choice (Glucerna, Boost Glucose Control, Premier Protein, etc.) Nutrition Discharge Plan: Patient was assessed as severely malnourished in setting of acute illness during this hospitalization based upon the ASPEN criteria. Outpatient follow-up recommended by RDN: Recommend PCP monitor patient and refer for outpatient follow-up with dietitian regarding malnutrition as indicated * Attachments The following attachments cannot be sent through Care Everywhere. * Ciprofloxacin (By mouth) (Mauritanian) * Metronidazole (By mouth) (Mauritanian) documented in this encounter Medications at Time of Discharge Medication Sig Dispensed Refills Start Date End Date A LIPOIC [id number] ORAL Take by mouth daily. 11/02/2023 acetaminophen [...] by mouth daily. flash glucose scanning reader ([employer]Style Barbie 14 Day [place]) by other route. 08/25/2022 flash glucose scanning [...] times a day. 30 tablet 1 12/15/2023 documented as of this encounter Progress Notes * Vipul Caraballo M.D. - 12/15/2023 11:38 AM CDT T Medicine 1 ([facility]) Supervisory Note I saw and evaluated Ms. Graham on the day of discharge and agree with the discharge plans and disposition. * Tere Edmondson M.B., B.Ch., B.A.O. - 12/14/2023 10:37 AM CDT GASTROENTEROLOGY & HEPATOLOGY PROGRESS NOTE DATE OF CONSULT: 12/13/23 QUESTION: Acute cholangitis OBJECTIVE Hemoglobin 9.6 from 10.1, platelets 156, white blood cell count significantly improved at 8.1 from 16, total bilirubin improved from 3.8 to 2.3, AST improved to 111, ALT improved to 107, alkaline phosphatase improved to 130. Creatinine at baseline 0.8. ASSESSMENT/PLAN # Acute cholangitis # Chronic biliary obstruction # RUQ pain # Nausea, Vomiting Charla Graham is an 83 year old lady who was admitted yesterday for RUQ pain, chills and concern for acute cholangitis. She has a past medical history of diabetes mellitus, hyperlipidemia, hypertension, prior stroke, recurrent urinary tract infections and hearing loss. The patient has been undergoing outpatient evaluation with the [facility] for lower common bile duct stricture, concerning for underlying pancreatic malignancy in the setting of an elevated CA 19 -9. She presented with hospital with concern for acute cholangitis underwent ERCP yesterday, though due to medication of Plavix sphincterotomy was not performed and a plastic stent was placed to help drain the bile duct, though there was evidence of choledocholithiasis. She should continue antibiotics for acute cholangitis for 7 days. Liver biochemistries today are already improving from baseline, and patient's symptoms have completely resolved. Brushings were sent from biliary tree yesterday for fish, which will be followed up outpatient. Outpatient previously scheduled procedure for EUS ERCP will be performed when Plavix has been held for 7 days ideally within 6 weeks. - Outpatient Pancreas clinic appointment - Outpatient EUS/ERCP with plavix held for 7 days for diagnostic purposes - Antibiotics for 7 days total - Follow up biliary tract brushings sent for FISH This patient was staffed with Dr. Lowell Santos, with the recommendations discussed with the primary team. Thank you for involving us in the care of this patient. We will sign off at this time. Please page the GI Hepatobiliary consult pager at [phone] with any questions or concerns. Dr. Tere Edmondson Gastroenterology & Hepatology Fellow PGY-6 * O Warren Castro, Pharm.D., R.Ph. - 12/14/2023 10:13 AM CDT Pharmacist Progress Note Reason for admission: 83 yo F admitted with elevated LFTs and bilirubin. PMH: T2DM, HLD, HTN, left ICA stroke in 12/2022 (s/p thrombolysis and endovascular management), recurrent UTIs with recent antimicrobials, and hearing loss. OBJECTIVE Neuro: Ox3 Resp: RA CV: BP/HR stable Neph: Estimated Creatinine Clearance: 44.6 mL/min (by C-G formula based on SCr of 0.81 mg/dL). Endo: bg 74-222 VTE PPX: SCDs Medication Reconciliation: Held: atorvastatin (elevated liver chemistries), glipizide, vitamins/supplements, clopidogrel (for ERCP), nitrofurantoin (UTI ppx) Changed: none New: ceftriaxone, metronidazole, bowel meds ASSESSMENT / PLAN Cholelithiasis & ?Cholangitis/Obstructing Gallstone - CBD stent placed yesterday, AF, WBC has normalized, BCx NGTD, day 2 empiric ceftriaxone 2 gram q24hr & metronidazole 500 mg po tid. For optimal biliary penetration, would suggest an oral regimen of ciprofloxacin 500 mg po bid and metronidazole 500 mg po tid to complete course of therapy (7 days post-ERCP). Will continue to hold clopidogrel for repeat EUS and ERCP off clopidogrel for 7 days, no later than 6 weeks. T2DM - A1c 7.6% on moderate aspart correction scale tid, holding home glipizide, goal bg range 140-180. Warren Castro Pharm.D., R.Ph. * Albino Colunga - 12/14/2023 7:46 AM CDT RST Medicine 1 ([facility]) PROGRESS NOTE SUBJECTIVE Ms. Graham is day 1 s/p ERCP. She had a biliary stent placement for CBD stricture and cholangitis. She is doing well this morning with no active complaints. Specifically denied abdominal pain, nausea and chest pain. I have reviewed the current medication list. OBJECTIVE VITAL SIGNS Temperature: [36.2 ??C-36.8 ??C] 36.5 ??C Heart Rate: [69-91] 69 Resp Rate: [16-22] 16 Blood Pressure: (110-129)/(47-66) 117/56 SpO2: [93 %-99 %] 96 % Flow Rate (L/min): [10 L/min] 10 L/min Pulse Rate: [69-92] 74 PHYSICAL EXAM General: Alert, interactive, not acutely ill. ENT: Hearing grossly intact. Dentition intact. No oral or pharyngeal erythema or lesions noted. Lungs: Clear to auscultation. No wheezes or crackles. Heart: Regular rate and rhythm. No murmurs appreciated. No lower extremity edema. Abdomen: Soft, flat, bowel sounds normoactive, nontender, nondistended, no palpable masses or organomegaly. Mental: Mood and affect congruent. Alert and oriented. Attention intact. No evidence of disorganized thinking. 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 DIAGNOSTICS LFTs show T bili down from 3.8 to 2.3. AST from 147 to 111, ALT from 140 to 107. ALP slight increase from 124 to 130. CBC shows decrease in leukocytes from 16.5 to 8.1, rest unremarkable. BMP normal. I have personally reviewed the laboratory data and imaging since admission, and in/outs for past 72hours. ASSESSMENT / PLAN Ms. Graham is hospitalized on [facility] 1 ([facility]) for evaluation and management of Acute cholangitisin the setting of biliary obstruction with an undetermined cause. She had an ERCP and CBD stent placement yesterday. Her plavix has been held for EUS planned next week to assess pancreatic mass on CT. She has improved clinically and biochemically after the CBD stent placement. We wish to monitor her progression a bit more as she recovers. #Stricture Biliary (HCC) #Cholangitis Acute (HCC) - ERCP done 12/13/23 - continue abx IV ceftriaxone and oral metronidazole (7 days- started 12/13/23) - Consider switching abx to oral augmentin on discharge - F/U labs (CBC,BMP,LFT) - Held plavix for outpatient EUS - Outpatient pancreas clinic F/U #UTI - continue above abx - F/U Urine cultures #T2DM - Continue sliding scale insulin Current Activity/Mobility: BMAT Level 4 (Able to stand and walk; needs staff assist if fall risk factors identified) Fall Injury Prevention: I have discussed My Plan for Safe Activity with the patient. Diet: general diet Tubes/lines: Lines, Drains, and Airways Peripheral IV Duration Peripheral IV 20 G Left;Lower;Posterior Forearm -- Peripheral IV 20 G Right Wrist -- VTE prophylaxis: SCD's Disposition: Home with expected discharge date Surrogate Decision Maker: Maia Grajeda Plan discussed with [facility] Medicine 1 ([facility]) Theatre Director, Vipul Pittman M.D., who was present during kirk portions of the evaluation today. Please page the [facility] Medicine 1 ([facility]) service pager at [phone] with any questions. Associated attestation - Vipul Caraballo M.D. - 12/14/2023 4:[address] [facility] Medicine 1 ([facility]) Supervisory Note I saw and evaluated Ms. Graham, participating in the kirk portions of the service. I agree with the history, exam, and plan as documented in today's medicine team's note(s). Briefly, Ms. Graham is an 83-year-old woman who was admitted on 12/13/2023 due to elevated liver enzymes and hyperbilirubinemia in the setting of biliary obstruction. She has medical comorbidities notable for diabetes, hypertension, hyperlipidemia, hearing loss, and prior stroke in 2022. Ms. Graham underwent ERCP and had a plastic stent placed for decompression. Her liver enzymes are improving today and she reports feeling better. Continue IV antibiotics today and plan to transitioned to oral antibiotics tomorrow. Continue to observe today with plan to discharge tomorrow. She will follow up with GI next week. Continue to hold Plavix. Rest of plan per medicine team Severe Malnutrition The patient meets the ASPEN Criteria of malnutrition based on: Energy Intake: Less than 75% of estimated energy requirement for greater than or equal to 7 days Interpretation of Weight Loss: greater than 7.5% 3 months Body Fat: Mild Loss Muscle Mass: Moderate Loss Fluid Accumulation: Absent Reduced Prison Psychiatrist Strength: Not applicable This is in the context of Acute Illness or Injury. Agree with Registered Dietitian's assessment and treatment plan: Interventions: Increase nutrient intake with small, frequent meals and/or snacks, Medical food supplement, Vitamin and mineral supplements, Provide counseling strategies to apply nutrition knowledge * Surinder Conroy M.D. - 12/14/2023 7:00 AM CDT [facility] Medicine 1 ([facility]) Progress Note SUBJECTIVE INTERVAL EVENTS No acute events overnight Vital signs stable, afebrile Status-post ERCP with temporary stenting for biliary decompression 12/12, sphincterotomy not attempted due to clopidogrel ERCP also suggestive of choledocholithiasis with biliary sludge Cells for cytology/FISH obtained for malignancy workup UA with 10-20 WBCs, culture pending LFTs stable versus improving OBJECTIVE VITAL SIGNS Temperature: [36.4 ??C-37.4 ??C] 37.4 ??C Resp Rate: [16-17] 16 Blood Pressure: (110-137)/(49-66) 137/58 SpO2: [94 %-97 %] 95 % Height: [152.4 cm] 152.4 cm Pulse Rate: [73-84] 74 PHYSICAL EXAM General: Alert, interactive, not acutely ill. Skin: Healing lesions on right shoulder Eyes: Pupils equal and round. Sclera anicteric. ENT: Extremely hard of hearing Lungs: Expiratory wheeze bilaterally anteriorly Heart: Regular rate and rhythm. No murmurs appreciated. No lower extremity edema. Abdomen: Soft, flat, bowel sounds normoactive, nontender, nondistended, no palpable masses or organomegaly. Neuro: Cranial nerves II-XII intact. Strength 5/5 in all extremities. Mental: Mood and affect congruent. Alert and oriented. Attention intact. No evidence of disorganized thinking. 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 DIAGNOSTICS (diagnostics reviewed) ASSESSMENT / PLAN Ms. Graham is a(n) 83 y.o. female with diabetes, hypertension, hyperlipidemia, hearing loss, and prior stroke (2022) who presented with acute cholangitis secondary to common bile duct stricturing (concerning for malignancy) +/- choledocholithiasis status-post ERCP 12/12 with temporary biliary stent placement. 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 # Mixed pattern of liver injury with elevated bilirubin and biliary duct dilation # Abdominal pain, nausea, and confusion (resolved) Tylenol 500 mg q6 hours PRN for pain Hepatobiliary consulted Treat for acute cholangitis for 7 days (EOT 12/18): will switch ceftriaxone to ciprofloxacin tomorrowand continue metronidazole Status-post ERCP with temporary stenting for biliary decompression 12/12, sphincterotomy not attempted due to clopidogrel Follow-up cells for cytology/FISH for malignancy workup Outpatient diagnostic ERCP and EUS and off clopidogrel for 7 days, no later than 6 weeks Continue to follow with pancreas clinic as an outpatient # Urinary frequency # Recurrent UTIs UA with 11-20 WBCs Urine culture pending Antibiotics as above #Left ICA stroke (2022) #Hypertension # Hyperlipidemia Continue home aspirin Holding clopidogrel, last received 12/11 Holding home atorvastatin for LFT elevations # Type 2 Diabetes Mild sliding scale insulin Diet: Adult Diet Regular Antithrombotics: Anti-Coag / Anti-Platelet Meds: aspirin, 81 mg [Held by provider] clopidogreL, 75 mg Code status: Full Code Lines, Drains, and Wounds Peripheral IV Duration Peripheral IV 20 G Left;Lower;Posterior Forearm -- Peripheral IV 20 G Right Wrist -- Activity Orders (From admission, onward) Start 12/13/23 0456 Activity/Position: Up Ad Jennifer, Up to Chair; Other (comment); Ambulate as much as possible considering previous activity level and physical functioning. Resume activity level following recovery from procedure and/or tests unless otherwise directed.... Until discontinued Question Answer Comment Activity Level: Up Ad Jennifer Activity Level: Up to Chair Ambulation Goals: Other (comment) Ambulation goals comment: Ambulate as much as possible considering previous activity level and physical functioning. Resume activity level following recovery from procedure and/or tests unless otherwise directed. Up to chair goals: With meals Restrictions/Precautions: None Brace/Device: None Severe Malnutrition The patient meets the ASPEN Criteria of malnutrition based on: Energy Intake: Less than 75% of estimated energy requirement for greater than or equal to 7 days Interpretation of Weight Loss: greater than 7.5% 3 months Body Fat: Mild Loss Muscle Mass: Moderate Loss Fluid Accumulation: Absent Reduced Prison Psychiatrist Strength: Not applicable This is in the context of Acute Illness or Injury. Agree with Registered Dietitian's assessment and treatment plan: Interventions: Increase nutrient intake with small, frequent meals and/or snacks, Medical food supplement, Vitamin and mineral supplements, Provide counseling strategies to apply nutrition knowledgePlan discussed with [facility] Medicine 1 ([facility]) Theatre Director, Vipul Pittman M.D., who was present dur ing kirk portions of the evaluation today. Please page the [facility] 1 service pager at [phone] with anyquestions. documented in this encounter H&P Notes * Vahid Kaplan M.D. - 12/13/2023 4:[address] [facility] Medicine 1 ([facility]) Supervisory Admission Note SUBJECTIVE CHIEF COMPLAINT Possible acute cholangitis HISTORY OF PRESENT ILLNESS Ms. Charla Graham is a 83 y.o. cisfemale who presents as a direct admission given concerns at OSH for cholangitis. PMH is significant for diabetes, HLD HTN, left ICA stroke in 12/2022 (s/p thrombolysis and endovascular management), recurrent UTIs with recent antimicrobials, and hearing loss. Briefly, while limited OSH information is available pertaining recent course, it would appear she has had recent assessment in the setting of identification of dilation of biliary tree over the course of the past weeks while undergoing evaluation for recurrent UTIs. During these assessments (first identified in limited reports available on 11/13/2023) there was note of stricturing of the lower common bile duct over with clear transition that was concerning for possible malignancy. Ultimately, she underwent labs and CT pancreas at [place] on 12/11 in anticipation for OP establishmentof care with GI colleagues later today and ERCP EUS on 12/24. At the time, labs were notable for leukocytosis of 10.6 with neutrophilia, and total bili of 1.7. Later in the evening however, she developed an episode of upper abdominal pain with chills and nausea. Per OSH report she subsequently had discussion with family member at which time she was confused and had slurred speech [place] which [place] [place] [facility] for assessment. Repeat laboratory assesment was notable for increase of leukocytosis to 24K and bilirubin of 4.5. CT imaging noted diffuse mural enhancement of CBD consistent with acute cholangitis and she was initiated on CTX + metronidazole prior to direct admission to [facility] for further management. Upon arrivalpatient was at her baseline mental status, hemodynamically stable, and otherwise asymptomatic. . OBJECTIVE VITAL SIGNS Temperature: [36.9 ??C] 36.9 ??C Resp Rate: [16] 16 Blood Pressure: (107-112)/(57-59) 107/59 SpO2: [94 %-96 %] 96 % Height: [152.4 cm] 152.4 cm Weight: [55.6 kg] 55.6 kg BSA (Calculated - sq m): [1.53 sq meters] 1.53 sq meters BMI (Calculated): [23.9 kg/m??] 23.9 kg/m?? Pulse Rate: [88] 88 PHYSICAL EXAM General: Alert, interactive, not acutely ill. Eyes: Pupils equal and round. Bilateral conjunctivae nonicteric ENT: Hearing significantly reduced at baseline. Heart: Regular rate and rhythm. No murmurs appreciated. No lower extremity edema. Lungs: Mild diffuse expiratory wheezing. Abdomen: Soft, bowel sounds normoactive, nontender, distended, no palpable masses or organomegaly. Skin: No evidence of dermatoses on limited examination. Capillary refill <2 seconds Neuro: They are alert and oriented. They are interactive and are following simple and complex commands. No perceived visual defects. 4 extremities antigravity and against resistance. DIAGNOSTICS I have reviewed the labs, ECG, and diagnostics from admission. Interpretation of Outside CT Abdomen and or Pelvis Result Date: 12/13/2023 Impression: 1. Redemonstration of distal common bile duct stricture with persistent dilation of thecommon bile duct but less severe intrahepatic biliary duct dilation when compared to later [place] CT performed on the same day. 2. Inflammation of the biliary tree with imaging findings indicative of ch olangitis. No intrahepatic abscess identified. 3. Similar prominent gastrohepatic and portacaval lymph nodes which could be reactive, however, indeterminate given the potential malignant etiology of the common bile duct stricture. 4. Mild inflammation extending from the splenic flexure to rectum. No pericolonic abscess or bowel obstruction. US Gallbladder and or Biliary Ducts Result Date: 12/13/2023 Impression: 1. Cholelithiasis and biliary sludge. No sonographic findings to suggest acute cholecystitis. 2. As seen on the prior CT triple phase pancreas angiogram, there is diffuse wall thickening and dilatation of the common hepatic and common bile ducts. This is nonspecific and may represent a chronic infectious/inflammatory process. 3. Echogenic focus in the mid common bile duct with surrounding biliary sludge. This is nonspecific and may represent echogenic gallstone, though a malignancy cannot be completely excluded. CT Pancreas Angiogram Triple Phase and Pelvis with IV Contrast Result Date: 12/12/2023 Impression: 1. Stricturing of the lower common bile duct over a 30 mm segment to the ampulla. Malignant etiology cannot be ruled out. 2. Resultant marked dilatation of the upstream biliary system. 3.Prominent gastrohepatic and periportal lymph nodes are indeterminate. Indeterminate right adrenal nodule measuring up to 11 mm. No other findings suggestive of metastatic disease in the abdomen or pelvis. 4. Colonic wall thickening of the transverse colon, descending colon, sigmoid colon and rectum, suggestive of inflammatory changes. Endoscopy may be required to more definitively assess. ASSESSMENT / PLAN This is a supervisory note for Dr. Montero, please review their note from 12/13/2023 for additional details pertaining Mrs Graham's course. Briefly, Ms. Graham is hospitalized on [place] [id number] ([facility]) for evaluation and management of acute cholangitis in s/o subacute/chronic biliary tract obstruction. At this point, her course is certainly concerning for acute cholangitis; however, we have limited availability of outside evaluation at time of patient arrival for personal review. Additionally, patient presents at her baseline health upon arrival to [facility], which could likely be consistent with rapid improvement after intiation of empiric antimicrobials. In light of the above, plan as per note unless otherwise noted below: While she would be classified as a high-risk cholangitis patient in light of age and query for malignancy which would usually warrant consideration of pseudomonal coverage with empiric antimicrobials; the near complete resolution of symptoms reported at OSH by time of arrival at [facility] are supportiveof appropriate antimicrobial coverage Continue CTX + metronidazole for time being Low threshold for escalation to cefepime for pseudomonal coverage in case of clinical decline Baseline laboratory evaluation to compare with OSH reports Pending external CT overread, will proceed with US liver and gallbladder If ancillary testing consistent with cholangitis, anticipate emergent ERCP later today. Vahid Peña M.D. Internal Medicine PGY3 * Malka Montero M.D. - 12/13/2023 4:[address] [facility] Medicine 1 ([facility]) Admission Note SUBJECTIVE CHIEF COMPLAINT Abnormal LFTs HISTORY OF PRESENT ILLNESS Ms. Charla Graham is a 83 y.o. female who presents with elevated LFTs and bilirubin. PMH is significant for diabetes, HLD HTN, left ICA stroke in 12/2022 (s/p thrombolysis and endovascular management), recurrent UTIs with recent antimicrobials, and hearing loss. On 12/11 she underwent labs and CT pancreas at [facility]. These tests were in anticipation of GI appointment on 12/11 and ERCP/EUS for known biliary duct dilation. At that time, labs showed WBC 10.6 (neutrophils 8.23), PT 12.6, bilirubin 1.7, ALT 212, AST 433, alk phos 159, HA1C 7.6, and CA 19-[address] pancreas angio showed: 1. Stricturing of the lower common bile duct over a 30 mm segment to the ampulla. Malignant etiology cannot be ruled out. 2. Resultant marked dilatation of the upstream biliary system. 3. Prominent gastrohepatic and periportal lymph nodes are indeterminate. Indeterminate right adrenal nodule measuring up to 11 mm. No other findings suggestive of metastatic disease in the abdomen orpelvis. 4. Colonic wall thickening of the transverse colon, descending colon, sigmoid colon and rectum, suggestive of inflammatory changes. Endoscopy may be required to more definitively assess. Later in the evening, while driving in the car she had an episode of upper abdominal pain associated with chills and nausea, but not vomiting. The episode self-resolved after several hours with no intervention. Per outside records, there was also a concern that she was confused and had garbled speech. For this reason, EMS was called and she was brought to [facility] ED. In the [place] ED, labs were notable for WBC 23.98, bilirubin 4.5, AST 274, ALT 187, and alk phos 151. CT abdomen/pelvis showed: Mild intrahepatic biliary ductal dilation and dilation of the common bile duct up to 12 mm with diffuse mural enhancement. The gallbladder is clearly visualized, possibly contracted. Findings concerning for ascending cholangitis. No obstructing lesion visualized. She was given ceftriaxone/metronidazole and transferred to [place] for concern for cholangitis. On admission to [place], she was fully alert and oriented and at her baseline. She reported that all of her symptoms had resolved. Labs were notable for WBC 16.5 and PT 18.4. Gallbladder ultrasound showed: 1. Cholelithiasis and biliary sludge. No sonographic findings to suggest acute cholecystitis. 2. As seen on the prior CT triple phase pancreas angiogram, there is diffuse wall thickening and dilatation of the common hepatic and common bile ducts. This is nonspecific and may represent a chronic infectious/inflammatory process. 3. Echogenic focus in the mid common bile duct with surrounding biliary sludge. This is nonspecificand may represent echogenic gallstone, though a malignancy cannot be completely excluded. On review of systems, patient reports approximately one month of persistent right-sided pruritis and lesions on her right shoulder. She reports increased fatigue and needing to sleep more for a period of unclear duration. She reports approximately one week of increased urinary frequency without dysuria. Review of systems was otherwise negative. Patient reports that her mother had problems with her gallbladder, but is unsure what those problems were because in those days you didn't ask the doctor. Her mother at age 69 of either gallbladder problems or diabetes, she is unsure which. Active Home Medications Medication Sig Taking A LIPOIC [id number] ORAL Take by mouth daily. acetaminophen (TYLENOL) 325 mg tablet Take 650 mg by mouth every 6 (six) hours. aspirin 81 mg capsule Take 81 mg by mouth. aspirin [address] tablet Take 1 tablet by mouth daily. atorvastatin (LIPITOR) 20 mg tablet Take 1 tablet by mouth daily with dinner. B complex-vitamin (SUPER B-50) capsule Take 1 tablet by mouth. blood sugar diagnostic strips (Contour Next Test Strips) Dispense item covered by pt ins.TEST 3 TIMES DAILY. blood-glucose sensor (FreeStyle Barbie 3 Sensor) device by other route. blood-glucose sensor (FreeStyle Barbie 3 Sensor) device by other route. cholecalciferol (REPLESTA) 1,250 mcg (50,000 unit) wafer Take 1,000 Units by mouth. clopidogreL (PLAVIX) 75 mg tablet Take 1 tablet by mouth daily. clopidogreL (Plavix) 75 mg tablet Take 75 mg by mouth. d-mannose 500 mg capsule Take by mouth. estradioL (Estrace) 0.1 mg/g (0.01%) vaginal cream by other route. estradioL (ESTRACE) 0.1 mg/g (0.01%) vaginal cream Apply dime-sized amount to the external urethra 3 nights weekly. No need for vaginal applicator or insertion estradioL (ESTRING) 2 mg (7.5 mcg /24 hour) vaginal ring by other route. flash glucose scanning reader (FreeStyle Barbie 14 Day [place]) by other route. flash glucose scanning reader (FREESTYLE BARBIE) by other route. flash glucose sensor (FREESTYLE BARBIE) kit by other route. flash glucose sensor (FREESTYLE BARBIE) kit by other route. glipiZIDE (GLUCOTROL) 10 mg tablet Take 10 mg by mouth. glipiZIDE (GLUCOTROL) 5 mg tablet Take 5 mg by mouth. ketorolac (ACULAR) 0.5 % ophthalmic solution Administer 1 drop into the left eye 4 (four) times a day. Start 2 days piror to surgery and use until empty ketorolac (ACULAR) 0.5 % ophthalmic solution Administer 1 drop into the right eye 4 (four) times a day. Start 2 days piror to surgery and use until empty metFORMIN (GLUCOPHAGE) 500 mg tablet Take 500 mg by mouth. moxifloxacin (VIGAMOX) 0.5 % ophthalmic solution Administer 1 drop into the left eye 4 (four) timesa day. Start 2 days prior to surgery. Use until bottle is empty moxifloxacin (VIGAMOX) 0.5 % ophthalmic solution Administer 1 drop into the right eye 4 (four) times a day. Start 2 days prior to surgery and use until empty nitrofurantoin (MACRODANTIN) 25 mg capsule Take 50 mg by mouth. nitrofurantoin (MACRODANTIN) 50 mg capsule Take 50 mg by mouth daily. OMEGA-3 FATTY ACIDS-EPA ORAL Take 1 capsule by mouth. pravastatin (PRAVACHOL) 20 mg tablet Take 20 mg by mouth. prednisoLONE acetate (PRED FORTE) 1 % ophthalmic suspension Administer 1 drop into the right eye 4 (four) times a day. Start 2 days prior to surgery and use for at least 30 days prednisoLONE acetate (PRED FORTE) 1 % ophthalmic suspension Administer 1 drop into the left eye 4 (four) times a day. Start 2 days prior to surgery and use for 30 days following. sennosides-docusate sodium (SENOKOT-S) 8.6-50 mg per tablet Take 1-4 tablets by mouth. triamcinolone (KENALOG) 0.025 % cream Apply topically. ubiquinone (COENZYME Q10) 100 mg tablet Take by mouth. OBJECTIVE VITAL SIGNS Resp Rate: [16] 16 Blood Pressure: (112)/(57) 112/57 SpO2: [94 %] 94 % Pulse Rate: [88] 88 PHYSICAL EXAM General: Alert, interactive, not acutely ill. Skin: Healing lesions on right shoulder Eyes: Pupils equal and round. Sclera anicteric. ENT: Extremely hard of hearing Lungs: Expiratory wheeze bilaterally anteriorly Heart: Regular rate and rhythm. No murmurs appreciated. No lower extremity edema. Abdomen: Soft, flat, bowel sounds normoactive, nontender, nondistended, no palpable masses or organomegaly. Neuro: Cranial nerves II-XII intact. Strength 5/5 in all extremities. Mental: Mood and affect congruent. Alert and oriented. Attention intact. No evidence of disorganized thinking. 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 DIAGNOSTICS I have reviewed the diagnostics from admission. ASSESSMENT / PLAN Ms. Charla Graham is a 83 y.o. female who presents with elevated LFTs and bilirubin. PMH is significant for diabetes, HLD HTN, left ICA stroke in 12/2022 (s/p thrombolysis and endovascular management), recurrent UTIs with recent antimicrobials, and hearing loss. Concern for acute on chronic biliary obstruction. At present, her symptoms have resolved. It is possible that she had an acute episodeof choledocholithiasis that resolved when the stone passed. However, given the subacute to chronic finding of bile duct dilation on prior CT scans and pruritis of one month, concern for a more chronic obstructive process such as malignancy. #LFT and bilirubin elevation #Bile duct dilation #Abdominal pain, nausea, and confusion (resolved) S/p ceftriaxone/metronidazole at outside hospital. Consider continuing antibiotics here if concerned for cholangitis Tylenol 500 mg q6 hours PRN for pain Follow up over-read of outside CT scans Lipase, lactate, blood cultures, and LFTs ordered Consider ERCP Restart diet and anticoagulation following procedure #Urinary frequency #Recurrent UTIs Urine culture and UA ordered #Left ICA stroke #HTN HLD Continue home aspirin and clopidogrel Hold home atorvastatin for LFT elevations #Type 2 Diabetes Insulin correction moderate sliding scale Baseline Mobility: BMAT Level 4 (Able to stand and walk) Diet: general diet VTE prophylaxis: Holding for potential procedure Code status: Prior Surrogate Decision Maker: Child, Maia Connell or Hazel Graham Disposition: Home Lines, Drains, and Wounds Peripheral IV Duration Peripheral IV 20 G Left;Lower;Posterior Forearm -- Peripheral IV 20 G Right Wrist -- Associated attestation - Vipul Caraballo M.D. - 12/13/2023 11:55 AM CDT [facility] Medicine 1 ([facility]) Supervisory Note I saw and evaluated Ms. Graham, participating in the kirk portions of the service. I agree with the history, exam, and plan as documented in today's medicine team's note(s). Briefly, Ms. Graham is an 83-year-old woman who was admitted overnight due to elevated liver enzymes and hyperbilirubinemia in the setting of biliary obstruction. She has medical comorbidities notable for diabetes, hypertension, hyperlipidemia, hearing loss, and prior stroke in 2022. Ms. Graham has been recently found to have elevated liver enzymes. There has been concern for malignancy. She has upcoming appointments with outpatient GI here at [facility]. She underwent abdominal imaging yesterday but then later on developed abdominal pain as well as nausea and chills. There was also concern for confusion and change in speech. She underwent local evaluation and ED or there was a rise in her white blood cell count to 24. Liver enzymes are also elevated. Due to concern for cholangitisshe was transferred to [facility]. For today, we will have her go for ERCP for decompression. Continue antibiotics with ceftriaxone and metronidazole. EUS component we will need to be later due to use of Plavix. Appreciate assistance of hepatobiliary service. Rest of plan per medicine team documented in this encounter Consult Notes * Suzi Queen M.S., RDN, LD - 12/14/2023 2:59 PM CDTAssociated Order(s): IP CONSULT TO DIETITIAN Clinical Nutrition: Initial Assessment Clinical Nutrition was requested to evaluate patient for positive nursing baseline nutrition screenwith a MST score of 2 or greater SUBJECTIVE Ms. Graham is a 83 y.o. female admitted for Cholangitis Acute (HCC). Nutrition related medical/surgical history: T2DM, HLD, HTN, left ICA stroke in 12/2022 (s/p thrombolysis and endovascular management), recurrent UTIs with recent antimicrobials, and hearing loss Completed visit with patient and family today as part of face to face care. Current Nutrition (since admission): Patient ate about half of breakfast this morning which consisted of armenian toast and eggs. She had some nausea and abdominal pain yesterday but this has resolved since stent placement in ERCP yesterday. She meets acute malnutrition criteria based on poor intake,weight loss, and mild fat and moderate muscle wasting per NFPE today. She agreed to Glucerna supplement today. Encouraged protein intake and small, frequent meals and snacks to increase oral intake. She may discharge tomorrow. Nutrition history: Patient reports typically not being a big eater. She tries to eat 3 meals per day but it may just be a snack at times. She feels intake has declined recently. She monitors carbohydrate intake closely. She consumes protein drinks on occasion. Food Allergies: NKFA Chewing/Swallowing Issues: Patient wears dentures. She denies chewing or swallowing issues. OBJECTIVE Current nutrition orders: Dietary Orders (From admission, onward) Start Ordered 12/14/23 1058 Oral supplement -Supplement; Glucerna (strawberry); 1 each; Take at: Lunch Until discontinued Question Answer Comment Type: Supplement Supplement: Glucerna (strawberry) Size: 1 each Take at: Lunch 12/14/23 1057 12/13/23 1540 Adult Diet Regular Diet effective now Question: Diet texture: Answer: Regular 12/13/23 1539 Pertinent Labs: Last 3 results Lab Units 12/14/23 0720 12/13/23 0555 12/12/23 1043 SODIUM P mmol/L -- 136 -- SODIUM mmol/L 138 -- 136 POTASSIUM mmol/L 3.9 -- 5.1 POTASSIUM P mmol/L -- 3.9 -- CHLORIDE P mmol/L -- 105 -- CHLORIDE mmol/L 107 -- 100 BUN P mg/dL -- 18 -- BUN mg/dL 18 -- 21 CREATININE mg/dL 0.81 0.66 0.98 PHOSPHORUS INORGANIC mg/dL -- 3.1 -- CALCIUM P mg/dL -- 8.8 -- CALCIUM mg/dL 9.0 -- 10.1 MAGNESIUM mg/dL -- 1.9 -- Recent Labs Lab Units 12/12/23 1043 HEMOGLOBIN A1C % 7.6* GI Function: Last BM Date: 12/13/23 (per pt), , Passing Flatus: Yes Integumentary/Wounds: Lines/Drains/Airways None Medications: Scheduled Meds:aspirin, 81 mg, oral, Daily [Held by provider] atorvastatin, 20 mg, oral, Daily with dinner cefTRIAXone, 2 g, intravenous, Q24H [Held by provider] clopidogreL, 75 mg, oral, Daily insulin aspart, 0-13 Units, subcutaneous, TID metroNIDAZOLE, 500 mg, oral, TID polyethylene glycol, 17 g, oral, Daily sennosides-docusate sodium, 1 tablet, oral, BID Anthropometrics: Height: 152.4 cm Admission Weight: 55.6 kg (12/13/2023) Current Weight: 55.6 kg [place] Body Weight (Calculated) : 45.5 kg BMI (Calculated): 23.9 kg/m?? Weight change since admission: 0 kg Net IO Since Admission: 460.24 mL [12/14/23 1521] Weight history: Wt Readings from Last 12 Encounters: 12/13/23 55.6 kg Weight Change History: Patient and family report about 40 lb weight loss in past 6 months and maybe20 lbs in past 3 months. Patient feels she has weighed around 130 lbs recently. Per EMR, weight history flucutuates. 57.6 kg on 06/07/22, 56.9 kg on 09/01/23, 63.5 kg on 10/09/23, 54.4 kg on 11/02/23, 55.9 kg on 11/16/23, and current weight of 55.6 kg. Difficult to accurately assess weight history but se ems to be about 10% weight loss in past 3 months. Estimated Needs: Total Calorie Needs: 6575-7297 calories/day Method to Estimate Energy Needs: kcal/kg (25-30 kcal/kg) Weight Used for Equation Calculations: 55.6 kg Total Protein Needs: 56 - 72 grams/day (Method to Estimate Protein Needs (g/kg): 1 - 1.3 gm/kg) Weight Used to Calculate Protein Needs (Kg): 55.6 kg Nutrition Diagnosis: Malnutrition (undernutrition) related to medical status and poor appetite as evidenced by patient report of poor intake, unintentional weight loss, and mild fat and moderate muscle wasting Malnutrition Criteria: Severe Malnutrition The patient does meet the ASPEN Criteria of malnutrition based on: Energy Intake: Less than 75% of estimated energy requirement for greater than or equal to 7 days Interpretation of Weight Loss: greater than 7.5% 3 months Body Fat: Mild Loss Muscle Mass: Moderate Loss Fluid Accumulation: Absent Reduced Prison Psychiatrist Strength: Not applicable This is in the context of Acute Illness or Injury. ASSESSMENT / PLAN ASPEN Criteria Malnutrition Status: Severe Malnutrition Nutrition Intervention: Interventions: Increase nutrient intake with small, frequent meals and/or snacks, Medical food supplement, Vitamin and mineral supplements, Provide counseling strategies to apply nutrition knowledge. Recommendations: Glucerna ordered daily to supplement intake. Encourage oral intake. Patient has shake/smoothie list to order from. Consider multivitamin with minerals daily given malnutrition status. Monitoring/Evaluation: Nutrition parameter to monitor: Meals/Supplement Intake, Weight Status, Pertinent Labs, Nausea/Vomiting/Diarrhea Desired Outcome: Consume adequate nutrition orally and Improve nutritional status and promote favorable weight trending Patient Goal(s): Consume 75-100% of 3 meals daily and Consume 100% of 1 oral nutrition supplements daily Clinical Nutrition will continue to follow. For questions about patient's nutritional care please contact pager [phone] on weekdays 07:30-16:00 or [phone] on weekends/holidays. * Annalisa Mcnamara, RHerbertN. - 12/14/2023 9:18 AM CDTAssociated Order(s): IP CONSULT TO CARE MANAGEMENT; IP CONSULT TO CARE MANAGEMENT Discharge Planning Assessment SUBJECTIVE Assessment Information Referral Source: Early Screen for Discharge Planning Referral Reason: Discharge Planning Primary Language: Mauritanian Certified Technician Services Used: No Person(s) present during interview: Person(s) Present During Interview: patient History of Present Illness #1 Stricture Biliary (HCC) #2 Cholangitis Acute (HCC) Social History Family / Household: lives alone Support System: children, family members, and friends/neighbors Finance/Insurance Primary insurance: MEDICARE A AND B Secondary insurance: N/A benefits: No Advance Directives Legal Decision Maker: Self Advance Directives: N/A Advance Directives Status: N/A OBJECTIVE Baseline Functional Status Baseline Activities of Daily Living Mobility: Independent Dressing: Independent Feeding: Independent Bathing: Independent Grooming: Independent Toileting: Independent Behavior: Appropriate, Pleasant, Calm, Cooperative, Oriented Communication: Appropriate to age/development Shopping: Independent Medication Management: Independent Housekeeping: Independent Meal Prep: Independent Assistive Devices: None Transportation: Independent to drive Managing Finances: Independent Baseline Services/Resources Primary care clinic and provider: No primary care provider on file. Additional Resources: na Anticipated Needs Functional Status: None Assistive Devices: None Anticipated Modifications to the Patient's Home: None Transportation Needs: Support from family Does the patient need discharge transport arranged?: No Anticipated Discharge Destination: Home or Self Care ASSESSMENT / PLAN Assessment: The tractor expert met with Charla GagnonHerbert Santos to discuss her current hospitalization and home goingneeds. The patient was unaccompanied. The patient was a reliable historian. The role of tractor expert was reviewed. The patient reviewed her prior level of care and support system. The patient receives support from her children and extended family. The patient described her living environment as a multiple level home with stairs to enter with rails. Housekeeping, grocery shopping, meal prep, and other household responsibilities have previously been completed by patient. tractor expert discussed the patient's potential needs at dismissal based on their home setting, previous needs and responsibilities, homebound status, and relevant assessments with the patient. The patient will be safe and supported to return home alone when medically ready. Support will be provided by her family and friends. The patient demonstrated understanding whendiscussing her home going plans and anticipated needs. The patient lives alone in her own home. The patient shares that she has no difficulty navigating the stairs in her home and does not use any assistive devices at baseline. The patient is currently able to drive. The patient shares that she does not have any formal resources in the home at this time. She has family/friends that live nearby that are able to assist her if needed. She anticipates that her family will be able to provide transportation upon discharge. At this time, the care team has not identified any skilled post-hospital discharge care needs that require the assistance of the Care Management Team. After reviewing the patient's chart and meeting with the patient, the tractor expert deemed the LACE+/readmission questions were not necessary. The patient reports understanding that she will dismiss from the hospital when medically stable. Pending hospital course and medical readiness, no barriers to dismissal have been identified at this time. Plan: The patient agrees with the following plan. Patient's anticipated discharge disposition is: Home to Self Care Transportation upon dismissal will be provided by family--daughters . tractor expert recommended nothing at this time. tractor expert provided information regarding the dismissal process. tractor expert placed or requested the following hospital-based consult orders and/or referrals: None. tractor expert will continue to assess for homegoing needs with the interdisciplinary team. tractor expert encouraged the patient to reach out with any questions/concerns. Signed by: Diana Mcnamara R.N. 12/14/2023 * Lowell Santos M.D., M.P.H. - 12/14/2023 8:20 AM CDT HEPATOBILIARY CONSULT SERVICE Purpose of Visit Evaluation and management of acute cholangitis History of Present Illness Agree with the history and physical examination documented by Dr. Edmondson. 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 Due to current use of Plavix, no stone removal was performed and a plastic stent was placed for drainage. Plan is to keep previously scheduled EUS/ERCP and to discontinue Plavix for 7 days in anticipation of the procedures Other details as per Dr. Edmondson note * Tere Edmondson M.B., B.Ch., B.A.O. - 12/13/2023 10:09 AM CDTAssociated Order(s): IP CONSULT TO HEPATOLOGY GASTROENTEROLOGY & HEPATOBILIARY CONSULT Date/Time: 12/13/2023 10:09 AM CDT Patient Name: Charla Graham : 1940 CONSULT Evaluation of: Patient with acute on subacute/chronic biliary obstruction. Concern for malignant obstruction. Please advise on whether biopies and/or other procedures should be completed during ERCP and on next steps following ERCP Referring Provider: Vipul Caraballo M.D. HISTORY OF PRESENT ILLNESS Ms. Charla Graham is a 83 y.o. female with PMH pertinent for diabetes mellitus, hyperlipidemia, hypertension, prior stroke on Plavix, recurrent urinary tract infections and hearing loss.. Consultation was requested for evaluation of acute cholangitis. Briefly, the patient was in the process of establishing care at [facility] Pancreas clinic. She underwent Telemedicine pre-visit with the Pancreas Nurse on 11/30/23 and was pre-scheduled for tests. Over the last few months the patient has lost about 20 lb. Further evaluation locally showed elevation alkaline phosphatase to 353, AST 53, ALT 76. CT chest abdomen pelvis performed at the beginning ofApril showed dilated biliary tree with cutoff of the common bile duct at the pancreatic head and atrophy of the pancreatic body and tail, could not rule out malignancy. She was referred to [facility] for further evaluation. Yesterday she underwent outpatient blood work, and CT pancreas triple phase which demonstrated stricturing of the lower common bile duct over 30 mm segment of the ampulla concerning for malignancy, with significant upstream dilatation of the biliary system, prominent gastrohepatic and periportal lymph nodes, a mild colonic wall thickening which could be secondary to inflammatory changes. Following this evaluation the patient developed right upper quadrant abdominal discomfort associated with nausea and a 1 time episode of vomiting. She presented to the emergency department and was transferred here for further management. This morning the patient was seen prior to her ERCP, and she was feeling like her pain had resolved, there was no evidence of jaundice, no fever no chills. REVIEW OF SYSTEMS Negative except per HPI. OBJECTIVE BP (!) 113/51 (BP Location: Left arm) Pulse 76 Temp 36.2 ??C (Axillary) Resp 21 Ht 152.4 cm Wt 55.6 kg SpO2 96% BMI 23.94 kg/m?? PHYSICAL EXAMINATION General: Sitting comfortably in bed. Cooperative, in no acute distress. Thin. Eyes: Clear, non-injected, anicteric sclerae. ENT: MMM. No sublingual jaundice Lungs: Non-labored breathing on room air. Abdomen: No abdominal scars. Soft, non-distended, non-tender to palpation. No guarding or rebound tenderness. No masses palpated. No ascites. Extremities: Warm and well-perfused UE and LE. Skin: No rashes. Neuro: Alert, oriented x 3. Hard of hearing. DIAGNOSTICS Labs: CA 19-9: 84 Recent Labs 12/13/23 0555 12/12/23 1043 WBC 16.5 H 10.6 H HGB 10.1 L 12.1 PLT 174 273 INR 1.7 1.1 NA 136 136 CL 105 100 BUN 18 21 CREATININE 0.66 0.98 CALCIUM 8.8 10.1 ALBUMIN 3.6 4.5 BILITOT 3.8 H 1.7 H AST 147 H 433 H ALT 140 H 212 H ALKPHOS 124 H 159 H Imaging: EXAM: US GALLBLADDER AND OR BILIARY DUCTS COMPARISON: CT triple phase pancreas angiogram 12/12/2023. FINDINGS: Gallbladder: Contracted gallbladder. Cholelithiasis and biliary sludge. No wall thickening or pericholecystic fluid. Negative sonographic Peguero sign. Intrahepatic ducts: Dilated Common [...] duct with surrounding biliary sludge. This is nonspecificand may represent a non-shadowing gallstone versus hypovascular mass. ERCP is recommended. EXAM: CT PANCREAS ANGIOGRAM TRIPLE PHASE AND [...] suggestive of metastatic disease in the abdomen orpelvis. 4. Colonic wall thickening of the transverse colon, descending colon, sigmoid colon and rectum, suggestive of inflammatory changes. Endoscopy may be required to more definitively assess. ASSESSMENT / PLAN Charla Graham is an 83 year old lady who was admitted yesterday for RUQ pain, chills and concern for acute cholangitis. She has a past medical history of diabetes mellitus, hyperlipidemia, hypertension, prior stroke, recurrent urinary tract infections and hearing loss. The patient has been undergoing outpatient evaluation with the Pancreas Clinic for lower common bile duct stricture, concerning for underlying pancreatic malignancy in the setting of an elevated CA 19 -9. Labs on arrival were notable for leukocytosis 10.6 which increased to 16.5 this morning, platelets 174, INR 1.7, total bilirubin 1.7 which increased to 3.8 today, ALT 212 improved to 140, AST 433 improved to 147, alkaline phosphatase 124. She reports that yesterday she developed severe right upper quadrant pain associated with nausea and 1 time episode of nonbloody nonbilious vomiting. This was associated with severe chills, no temperature was measured. There was some concern by family that her speech was slurred, with confusion and she was brought to an outside emergency department for further evaluation. Today, she reports improved clinical symptoms. She will undergo ERCP today to relieve biliary obstruction. EUS will be performed outside the hospital when plavix has been held for 7 days. Please trend LFT, CBC. Continue treatment for cholangitis. PROBLEM LIST # Acute cholangitis # Chronic biliary obstruction # RUQ pain # Nausea, Vomiting RECOMMENDATIONS 1. ERCP today for biliary decompression 2. Outpatient EUS and Pancreas appointment as scheduled with plavix held for diagnostic purposes 3. Continue antibiotics for acute cholangitis for 5 days total, follow up blood cultures. This patient was staffed with Dr. Lowell Santos, with the recommendations discussed with the primary team. Thank you for involving us in the care of this patient. We will continue to follow along.Please page the GI Hepatobiliary consult pager at [phone] with any questions or concerns. GUSTABO [facility] CHANI Fellow, Gastroenterology and Hepatology (PGY-6) documented in this encounter Nursing Notes * Sandra Rizvi, RHerbertNHerbert - 12/15/2023 12:51 PM CDT Shift Goals: Clinical Goals for the Shift: pt will sleep through the night Identify possible barriers to meeting goals/advancing plan of care: None End of Shift Summary: Pt discharged to [facility] with family at 1300 this shift. Vital signs stable on RA, patient and family verbalized understanding of discharge education, all other question answered. NO further concern on discharge at this point. Problem: PAIN - ADULT Goal: PT VERBALIZES/DEMONSTRATES ADEQUATE COMFORT LEVEL OR BASELINE Outcome: Adequate for Discharge Problem: KNOWLEDGE DEFICIT Goal: Patient/family/caregiver demonstrates understanding of disease process, treatment plan, medications, and discharge instructions Outcome: Adequate for Discharge Problem: INFECTION - ADULT Goal: Absence of infection during hospitalization Outcome: Adequate for Discharge Problem: SKIN/TISSUE INTEGRITY Goal: Skin/Tissue integrity maintained or improved Outcome: Adequate for Discharge Goal: Oral and Nasal mucous membranes remain intact Outcome: Adequate for Discharge Problem: SAFETY ADULT Goal: Maintain a safe environment Outcome: Adequate for Discharge Problem: DISCHARGE PLANNING Goal: Patient discharge needs identified Outcome: Adequate for Discharge Problem: SAFETY ADULT - RISK FOR FALL AND OR FALL INJURY Goal: Patient remains free from fall/fall injury Outcome: Adequate for Discharge * Hyacinth Mckeon R.N. - 12/14/2023 4:55 AM CDT Shift Goals: Shift Goal: Pt to remain A&Ox3 and minimal abdominal upset Identify possible barriers to meeting goals/advancing plan of care: ERCP evaluation End of Shift Summary: VSS, softer Bps. Patient A&Ox3. Patient only had compliant of a headache throughout shift, PRN tylenol utilized. Patient had no complaints of nausea/abdominal discomfort; patient had adequate sleep overnight. Problem: PAIN - ADULT Goal: PT VERBALIZES/DEMONSTRATES ADEQUATE COMFORT LEVEL OR BASELINE Outcome: Progressing Problem: SKIN/TISSUE INTEGRITY Goal: Skin/Tissue integrity maintained or improved Outcome: Progressing Problem: SAFETY ADULT Goal: Maintain a safe environment Outcome: Progressing documented in this encounter Miscellaneous Notes * Hospital Course - Surinder Conroy M.D. - 12/13/2023 5:02 PM CDT Ms. Charla Graham is a 83 y.o. female who presented with elevated LFTs and bilirubin and was treated for cholangitis. PMH is significant for diabetes, HLD HTN, left ICA stroke in 12/2022 (s/p thrombolysis and endovascular management, on plavix), recurrent UTIs with recent antimicrobials, and hearing loss. Concern for acute on chronic biliary obstruction. She had an episode of severe pain, chills and confusion for which she presented to [facility] where her workup was suggestive of ascending cholangitis for which she was started on ceftriaxone and metronidazole and transferred to [facility]. On arrival she did not have any active symptoms and was continued to be managed on the same antibiotics. She was evaluated by GI and they did an ERCP on 12/12 where they placed a temporary stent in the CBD and drained pus and bile. They also took sample for cytology during ERCP. Due to her being on plavixfor previous stroke they did not perform a sphincterotomy. GI also suggested getting an EUS to further assess for any periampullary masses/tumors considering chronic history and family history (unclear) of mothers due to gallbladder issues. Her Plavix will need to be held for 1 week prior to intervention (at time of discharge, this is scheduled for 01/14). The day of discharge she was switched to ciprofloxacin and metronidazole for oral abx regimen. documented in this encounter Plan of Treatment Upcoming Encounters Date Type Department Care Team (Latest Contact Info) Description 12/20/2023 8:00 AM CDT Comprehensive Visit Division of Gastroenterology in [place], [place] [address] [place] [address] Audra Doss C.NHerbertPHerbert [address] [place] [phone] Omid Dillard M.D. [address] [place] [address] 12/29/2023 9:00 AM CDT Clinical Support Department of Nutrition and Diabetes Education in [place], [place] [address] [place] [address] Calvin Bailey M.D. [address] [place] [phone] Maricruz Ryan M.S., RDN, LD [address] [place] [phone] 01/15/2024 8:00 AM CDT Procedure visit Department of Urology in [address] [phone] Alejandra Souza P.A.-CHerbert [address] [phone] Discharge Disposition: Home or Self Care 01/15/2024 11:45 AM CDT Appointment Division of Gastroenterology in [place], [place] [address] [place] [address] Calvin Bailey M.D. [address] [place] [phone] Pending Results Name Type Priority Associated Diagnoses Date /Time Biliary Tract Malignancy-Cytolog y, FISH Pathology and Cytology Routine 12/13/2023 1:40 PM CDT Biliary Tract Malignancy, FISH Lab Routine 12/13/2023 1:40 PM CDT Scheduled Orders Name Type Priority Associated Diagnoses Orde r Schedule Biliary Tract Malignancy-Cytolo gy, FISH Pathology and Cytology Routine Release Upon Ordering for 1 Occurrences starting 12/13/2023 until 12/22/2023 Biliary Tract Malignancy, FISH Lab Routine Routine lab collection (next collection) for 1 Occurrences starting 12/13/2023 until 12/13/2023 documented as of this encounter Procedures Procedure [...] POCT, B Routine 12/13/2023 8:38 PM CDT DIPSTICK, U Routine 12/13/2023 6:24 PM CDT MICROSCOPIC MANUAL Routine 12/13/2023 6: 24 PM CDT BACTERIAL CULTURE, AEROBIC + SUSC, URINE Routine 12/13/2023 6:24 PM CDT PH, U Routine 12/13/2023 6:24 PM CDT OSMOLALITY, U Routine 12/13/2023 6:24 PM CDT URINALYSIS WITH MICROSCOPIC Routine 12/13/2023 6:24 PM CDT GLUCOSE POCT, B Routine 12/13/2023 4:04 PM CDT GLUCOSE POCT, B Routine 12/13/2023 2:33 PM CDT FL FLUORO LESS THAN 1 HOUR RAD - Routine (most inpatients and all outpatients) 12/13/2023 2:05 PM CDT ERCP Routine 12/13/2023 1:09 PM [...] CULTURE, BLOOD STAT 12/13/2023 5:56 AM CDT LACTATE FOR SEPSIS WITH REFLEX STAT 12/13/2023 5:55 AM CDT HEPATIC FUNCTION PANEL, S STAT 12/13/2023 5:55 AM CDT CYSTATIN C WITH EGFR STAT 12/13/2023 5:55 AM CDT PROTHROMBIN TIME (PT), P STAT 12/13/2023 5:55 AM CDT CBC WITH DIFFERENTIAL, B STAT 12/13/2023 5:55 AM CDT PHOSPHORUS (INORGANIC), S STAT 12/13/2023 5:55 AM CDT MAGNESIUM, S STAT 12/13/2023 5:55 AM CDT BASIC METABOLIC PANEL, S/P STAT 12/13/2023 5:55 AM CDT BACTERIA / WINDY CULTURE, BLOOD STAT 12/13/2023 5:43 AM CDT LIPASE, S/P Routine 12/13/2023 5:33 AM CDT documented in this encounter Results * (ABNORMAL) Glucose, POCT (12/15/2023 11:46 AM CDT) Glucose, POCT, B 194(H) 70 - 140 mg/dL 12/15/2023 11:46 AM CDT PCLX Site Capillary 12/15/2023 11:46 AM CDT PCLX Last Intake 3-4 hours 12/15/2023 11:46 AM CDT PCLX Blood 12/15/2023 11:4 6 AM CDT 12/15/2023 11:46 AM CDT Unknown Provider LAB POCT ORDERABLES- MANUAL Performing Organization Address City/[facility] Co de Phone Number [facility] [address] [place] [address], [facility] [address] [place] [address] * (ABNORMAL) Glucose, POCT (12/15/2023 7:38 AM CDT) Glucose, POCT, B 191(H) 70 - 140 mg/dL 12/15/2023 7:39 AM CDT PCLX Site Capillary 12/15/2023 7:39 AM CDT PCLX Last Intake > 4 hours 12/15/2023 7:39 AM CDT PCLX Blood 12/15/2023 7:38 AM CDT 12/15/2023 7:40 AM CDT Unknown Provider LAB POCT ORDERABLES- MANUAL Performing Organization Address City/[facility] Co de Phone Number [facility] [address] [place] [address], [facility] [address] [place] [address] * (ABNORMAL) Glucose, POCT (12/14/2023 8:35 PM CDT) Glucose, POCT, B 178(H) 70 - 140 mg/dL 12/14/2023 8:37 PM CDT PCLX Site Capillary 12/14/2023 8:37 PM CDT PCLX Last Intake 2-3 hours 12/14/2023 8:37 PM CDT PCLX Blood 12/14/2023 8:35 PM CDT 12/14/2023 8:37 PM CDT Unknown Provider LAB POCT ORDERABLES- MANUAL [facility] [address] [place] [address], [facility] [address] [place] [address] * (ABNORMAL) Glucose, POCT (12/14/2023 6:05 PM CDT) Glucose, POCT, B 175(H) 70 - 140 mg/dL 12/14/2023 6:06 PM CDT PCLX Site Capillary 12/14/2023 6:06 PM CDT PCLX Last Intake 3-4 hours 12/14/2023 6:06 PM CDT PCLX Blood 12/14/2023 6:05 PM CDT 12/14/2023 6:06 PM CDT Unknown Provider LAB POCT ORDERABLES- MANUAL Performing Organization Address City/[facility]/ZIP Co de Phone Number [facility] [address] [place] [address], [facility] [address] [place] [address] * (ABNORMAL) Glucose, POCT (12/14/2023 1:33 PM CDT) Glucose, POCT, B 155(H) 70 - 140 mg/dL 12/14/2023 1:34 PM CDT PCLX Site Capillary 12/14/2023 1:34 PM CDT PCLX Last Intake 3-4 hours 12/14/2023 1:34 PM CDT PCLX Blood 12/14/2023 1:33 PM CDT 12/14/2023 1:35 PM CDT Unknown Provider LAB POCT ORDERABLES- MANUAL [facility] [address] [place] [address], [place] [facility] [address] [place] [address] * Glucose, POCT (12/14/2023 9:51 AM CDT) Glucose, POCT, B 122 70 - 140 mg/dL 12/14/2023 9:54 AM CDT PCLX Site Capillary 12/14/2023 9:54 AM CDT PCLX Last Intake 3-4 hours 12/14/2023 9:54 AM CDT PCLX Blood 12/14/2023 9:51 AM CDT 12/14/2023 9:54 AM CDT Unknown Provider LAB POCT ORDERABLES- MANUAL Performing Organization Address City/[facility]/ZIP Co de Phone Number [facility] [address] [place] [address], [facility] [address] [place] [address] * Glucose, POCT (12/14/2023 8:27 AM CDT) Glucose, POCT, B 113 70 - 140 mg/dL 12/14/2023 8:27 AM CDT PCLX Last Intake 1-2 hours 12/14/2023 8:27 AM CDT PCLX Blood 12/14/2023 8:27 AM CDT 12/14/2023 8:28 AM CDT Unknown Provider LAB POCT ORDERABLES- MANUAL Performing Organization Address City/[facility]/ZIP Co de Phone Number [facility] [address] [place] [address], [facility] [address] [place] [address] * (ABNORMAL) Hepatic Function Panel (12/14/2023 8:20 AM CDT) Bilirubin, Total, S 2.3(H) 0.0 - 1.2 [...] CDT Vipul Caraballo M.D. LAB BLOOD ADD-ON [address] [address], [facility] [address] [address] * (ABNORMAL) CBC with Differential, Blood (12/14/2023 7:20 AM CDT) Hemoglobin 9.6(L) 11.6 - 15.0 g/dL 12/14/2023 [...] CDT Malka Montero M.D. LAB BLOOD ADD-ON [facility] [address] [place] [address], [facility] DTL [facility] [address] [place], [place] [id number] [place] [address] 200 [place] [address] * (ABNORMAL) Basic Metabolic Panel (12/14/2023 7:20 AM CDT) Pathologist [facility] Potassium, S 3.9 3.6 - 5.2 mmol/L [...] M.D. LAB BLOOD ADD-ON Performing Organization Address City/[facility]/ZIP Co de Phone Number [facility] [address] [place] [address], [facility] DTL [facility] [address] [place] [address] * (ABNORMAL) Glucose, POCT (12/13/2023 8:38 PM CDT) Glucose, POCT, B 222(H) 70 - 140 mg/dL 12/13/2023 8:38 PM CDT PCLX Last Intake 2-3 hours 12/13/2023 8:38 PM CDT PCLX Blood 12/13/2023 8:38 PM CDT 12/13/2023 8:39 PM CDT Unknown Provider LAB POCT ORDERABLES- MANUAL Performing Organization Address City/[facility]/ZIP Co de Phone Number [facility] [address] [place] [address], [facility] [address] [place] [address] * (ABNORMAL) Microscopic Manual (12/13/2023 6:24 PM [...] M.D. LAB URINE ORDERABLES Performing Organization Address [facility] Co de Phone Number [facility] [address] [place] [address], [facility] [address] [place] [address] * (ABNORMAL) Dipstick, Urine (12/13/2023 6:24 PM [...] M.D. LAB URINE ORDERABLES Performing Organization Address [facility] Co de Phone Number [facility] [address] [place] [address], [facility] [address] [place] [address] * Osmolality, Urine (12/13/2023 6:24 PM CDT) Osmolality, U 399 150 - 1150 mOsm/kg 12/13/2023 7:10 PM CDT DTL Urine 12/13/2023 6:24 PM CDT 12/13/2023 6:48 PM CDT Malka Montero M.D. LAB URINE ORDERABLES Performing Organization Address City/[facility]/ZIP Co de Phone Number [facility] [address] [place] [address] * pH, Urine (12/13/2023 6:24 PM CDT) pH, U 5.7 4.5 - 8.0 12/13/2023 7:1 0 PM CDT DTL Urine 12/13/2023 6:24 PM CDT 12/13/2023 6:48 PM CDT Malka Montero M.D. LAB URINE ORDERABLES Performing Organization Address [facility] Co de Phone Number [facility] [address] [place], [place] [phone] [place] [address] * (ABNORMAL) Urinalysis, with Microscopic: Urine, Midstream (12/13/2023 6:24 PM CDT) Source Urine, Urine, Midstream 12/13/2023 6:48 PM [...] CDT Malka Montero M.D. LAB URINE ORDERABLES [facility] [address] [place] [address], [facility] [address] [place] [address] * Bacterial Culture, Aerobic + Susceptibility, Urine (12/13/2023 6:24 PM CDT) Urine Culture No growth after 1 day of incubation. 12/15/2023 8:10 AM CDT DTL Urine (Urine, Midstream) 12/13/2023 6:24 PM CDT 12/13/2023 7:43 PM CDT Comment:Specimen Source Site : Urine Malka Montero M.D. LAB MICROBIOLOGY - G ENERAL ORDERABLES [facility] [address] [place] [address], [facility] [address] [place] [address] * (ABNORMAL) Glucose, POCT (12/13/2023 4:04 PM CDT) Glucose, POCT, B 141(H) 70 - 140 mg/dL 12/13/2023 4:05 PM CDT PCLX Site Capillary 12/13/2023 4:05 PM CDT PCLX Blood 12/13/2023 4:04 PM CDT 12/13/2023 4:05 PM CDT Unknown Provider LAB POCT ORDERABLES- MANUAL [facility] [address] [place] [address], [facility]CL[facility] [address] [place] [address] * (ABNORMAL) Glucose, POCT (12/13/2023 2:33 PM CDT) Glucose, POCT, B 143(H) 70 - 140 mg/dL 12/13/2023 2:34 PM CDT PCLX Blood 12/13/2023 2:33 PM CDT 12/13/2023 2:35 PM CDT Unknown Provider LAB POCT ORDERABLES- MANUAL [facility] [address] [place] [address], [facility] PCLX [facility] [address] [place] [address] * FL Fluoro Less Than 1 Hour (12/13/2023 2:05 PM CDT) Narrative ERCP LOS RST - 12/13/2023 2:06 PM CDT This exam does not require a radiologist review or interpretation. Please refer to the patient's medical record on this date for clinical details. Malka Montero M.D. IMG FLUOROSCOPY PROC EDURES Performing Organization Address City/[facility] Co de Phone Number ERCP LOS RST * ERCP (12/13/2023 1:09 PM CDT) 12/13/2023 1:09 PM CDT Impressions [facility] - 12/13/2023 2:24 PM CDT Post-op Diagnoses: [...] bile ? duct for temporary decompression. Narrative [facility] - 12/13/2023 2:24 PM CDT Oracio 6 [...] ? than 6 weeks. Findings: ? The sports intern film was normal. The esophagus was successfully [...] ? No immediate complications. 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 procedure, including non-kirk portions. Matias Trimble MD 12/13/2023 2:06:53 PM This report has been signed electronically. Number of Addenda: 0 Malka Montero M.D. GI PROCEDURE ORDERAB LES Performing Organization Address City/[facility]/ZIP Co de Phone Number [place] DE[place]AN NA * Glucose, POCT (12/13/2023 12:47 PM CDT) Glucose, POCT, B 74 70 - 140 mg/dL 12/13/2023 12:49 PM CDT PCLX Site Capillary 12/13/2023 12:49 PM CDT PCLX Blood 12/13/2023 12:4 7 PM CDT 12/13/2023 12:50 PM CDT Unknown Provider LAB POCT ORDERABLES- MANUAL Performing Organization Address [facility] de Phone Number POC [facility] [address] [place] [address], [place] [facility]CLX [facility] 200 [place] [address] * Glucose, POCT (12/13/2023 11:29 AM CDT) Glucose, POCT, B 98 70 - 140 mg/dL 12/13/2023 11:36 AM CDT PCLX Blood 12/13/2023 11:2 9 AM CDT 12/13/2023 11:36 AM CDT Unknown Provider LAB POCT ORDERABLES- MANUAL Performing Organization Address [facility] Co de Phone Number POC [facility] [address] [place] [address], [place] [facility] 200 [place] [address] * (ABNORMAL) Glucose, POCT (12/13/2023 9:17 AM CDT) Glucose, POCT, B 163(H) 70 - 140 mg/dL 12/13/2023 9:19 AM CDT PCLX Site Capillary 12/13/2023 9:19 AM CDT PCLX Last Intake 3-4 hours 12/13/2023 9:19 AM CDT PCLX Blood 12/13/2023 9:17 AM CDT 12/13/2023 9:19 AM CDT Unknown Provider LAB POCT ORDERABLES- MANUAL Performing Organization Address City/[facility]/ZIP Co de Phone Number POC [facility] [address] [facility] 200 [place] [address] * Lactate (12/13/2023 8:44 AM CDT) Lactate, P 1.7 0.5 - 2.2 mmol/L 12/13/2023 9:14 AM CDT [facility] Blood 12/13/2023 8:44 AM CDT 12/13/2023 9:01 AM CDT Malka Montero M.D. LAB BLOOD NON ADD-ON [facility] 200 [place] [address], [facility] STMA [facility] 200 [place] [address] * US Gallbladder and or Biliary Ducts [...] gallstoneversus hypovascular mass. ERCP is recommended. Malka Montero M.D. IMJayne US PROCEDURES * Interpretation of Outside CT [...] biliary duct dilation when compared to later [place] CT performed on the same day. 2. [...] IV contrast dated 12/12/2023. COMPARISON: ??Later performed [place] CT on the same day. FINDINGS: ?? Redemonstration of short segment distal common bile duct stricture (series 4 image 151) with upstream biliary biliary debris (but without identifiable obstructive stone or mass) and upstream biliary ductal dilation, but overall less severe since later performed [place], for intrahepatic biliary ductal dilation has [...] not significantly changed compared to later performed [place] CT. This examination was performed in conjunction with a CT of the chest. Procedure Note Manjit Scott D.O. - 12/13/2023 EXAM: INTERPRETATION OF OUTSIDE CT ABDOMEN AND OR PELVIS CT abdomen andpelvis with IV contrast dated 12/12/2023. COMPARISON: Later performed [place] CT on the same day. 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 This examination was performed in conjunction with a CT of the chest. IMPRESSION: 1. Redemonstration of distal common bile duct stricture with persistentdilation of the common bile duct but less severe intrahepatic biliary ductdilation when compared to later [place] CT performed on the same day. 2. Inflammation of the biliary tree with imaging findings indicative ofcholangitis. No intrahepatic abscess identified. 3. Similar prominent gastrohepatic and portacaval lymph nodes which couldbe reactive, however, indeterminate given the potential malignant etiologyof the common bile duct stricture. 4. Mild inflammation extending from the splenic flexure to rectum. Nopericolonic abscess or bowel obstruction. Vahid Peña M.D. IM CT PROCEDU RES * Bacteria / Windy Culture, Blood #2 (12/13/2023 5:56 AM CDT) Bacteria/Mandi da Culture, Blood No growth after 5 days of incubation. 12/18/2023 7:02 AM CDT DTL Blood (Blood, Peripheral Draw) 12/13/2023 5:56 AM CDT 12/13/2023 6:35 AM CDT Comment:Specimen Source Site : Blood Malka Montero M.D. LAB MICROBIOLOGY - G ENERAL ORDERABLES [place] [address] [facility] 200 [place] [address] * Cystatin C with Estimated GFR (12/13/2023 5:55 AM CDT) Pathologist [facility] eGFR by Cystatin C 63 >60 mL/min/BSA [...] CDT Malka Montero M.D. LAB BLOOD ADD-ON [facility] [address] [facility] 200 [place] [address] * Lactate for Sepsis with Reflex (12/13/2023 5:55 AM CDT) [facility] Lactate, P 2.1 0.5 - 2.2 mmol/L 12/13/2023 6:30 AM CDT [facility] Blood (Blood, Venous) 12/13/2023 5:55 AM CDT 12/13/2023 6:17 AM CDT Malka Montero M.D. LAB BLOOD NON ADD-ON [facility] [address] STMA [facility] [address] [address] * (ABNORMAL) Prothrombin Time (PT) (12/13/2023 5:55 AM CDT) Prothrombin Time, P 18.4(H) 9.4 - 12.5 sec 12/13/2023 6:24 AM CDT [facility] 1.7 0.9 - 1.1 12/13/2023 6:24 AM CDT [facility] Comment: ----ADDITIONAL INFORMATION---- Standard intensity warfarin therapeutic range: 2.0 to 3.0 ?? High intensity warfarin therapeutic range: 2.5 to 3.5 Blood (Blood, Venous) 12/13/2023 5:55 AM CDT 12/13/2023 6:17 AM CDT Malka Montero M.D. LAB BLOOD ADD-ON [address] [address], [address] [address] * (ABNORMAL) Hepatic Function Panel (12/13/2023 5:55 AM CDT) Pathologist [facility] Bilirubin, Total, S 3.8(H) 0.0 - 1.2 mg/dL 12/13/2023 7:31 AM CDT DTL Bilirubin, Direct, S 3.8(H) 0.0 - 0.3 mg/dL 12/13/2023 7:34 AM CDT DTL Aspartate Aminotransferase (AST), S 147(H) 8 - 43 U/L 12/13/2023 7:31 AM CDT DTL Alanine Aminotransferase (ALT), S 140(H) 7 - 45 U/L 12/13/2023 7:31 AM CDT DTL Alkaline Phosphatase, S 124(H) 35 - 104 U/L 12/13/2023 7:31 AM CDT DTL Albumin, S 3.6 3.5 - 5.0 g/dL 12/13/2023 7:31 AM CDT DTL Protein, Total, S 5.9(L) 6.3 - 7.9 g/dL 12/13/2023 7:31 AM CDT DTL Blood (Blood, Venous) 12/13/2023 5:55 AM CDT 12/13/2023 6:57 AM CDT Malka Montero M.D. LAB BLOOD ADD-ON [facility] [address] [place] [address] * Phosphorus Inorganic (12/13/2023 5:55 AM CDT) Phosphorus (Inorganic), S 3.1 2.5 - 4.5 mg/dL 12/13/2023 7:31 AM CDT DTL Blood (Blood, Venous) 12/13/2023 5:55 AM CDT 12/13/2023 6:57 AM CDT Malka Montero M.D. LAB BLOOD ADD-ON Performing Organization Address City/[facility]/ZIP Co de Phone Number [facility] [address] [place], [place] [phone] [place] [address] 200 [place] [address] * Magnesium (12/13/2023 5:55 AM CDT) Magnesium, S 1.9 1.7 - 2.3 mg/dL 12/13/2023 7:31 AM CDT DTL Blood (Blood, Venous) 12/13/2023 5:55 AM CDT 12/13/2023 6:57 AM CDT Malka Montero M.D. LAB BLOOD ADD-ON [facility] [address] [place], [place] [phone] [place] [address] [address] [place] [address] * (ABNORMAL) Basic Metabolic Panel (12/13/2023 5:55 AM CDT) Potassium, P 3.9 3.6 - 5.2 mmol/L 12/13/2023 6:34 AM CDT STMA Sodium, P 136 135 - 145 mmol/L 12/13/2023 6:34 AM CDT ST[facility] Chloride, P 105 98 - 107 mmol/L 12/13/2023 6:34 AM CDT ST[facility] Bicarbonate, P 19(L) 22 - 29 mmol/L 12/13/2023 6:34 AM CDT [facility] Anion Gap, P 12 7 - 15 12/13/2023 6:34 AM CDT [facility] BUN (Blood Urea Nitrogen), P 18 6 - 21 mg/dL 12/13/2023 6:34 AM CDT ST[facility] Creatinine 0.66 0.59 - 1.04 mg/dL 12/13/2023 6:34 AM CDT STMA Estimated GFR (eGFR) 86 >=60 mL/min/BSA 12/13/2023 6:34 AM CDT STMA Comment: Estimated GFR calculated using the 2020 CKD_EPI creatinine equation. Calcium, Total, P 8.8 8.8 - 10.2 mg/dL 12/13/2023 6:34 AM CDT STMA Glucose, P 241(H) 70 - 140 mg/dL 12/13/2023 6:34 AM CDT [facility] Blood (Blood, Venous) 12/13/2023 5:55 AM CDT 12/13/2023 6:17 AM CDT Malka Montero M.D. LAB BLOOD ADD-ON [facility] [address] [place] [address], [facility] [address] [place] [address] * (ABNORMAL) CBC with Differential, Blood (12/13/2023 5:55 AM CDT) Hemoglobin 10.1(L) 11.6 - 15.0 g/dL 12/13/2023 6:20 AM CDT ST[facility] Hematocrit 29.6(L) 35.5 - 44.9 % 12/13/2023 6:20 AM CDT [facility] Erythrocytes 3.31(L) 3.92 - 5.13 x10(12)/L 12/13/2023 6:20 AM CDT [facility] MCV 89.4 78.2 - 97.9 fL 12/13/2023 6:20 AM CDT ST[facility] RBC Distrib Width 13.6 12.2 - 16.1 % 12/13/2023 6:20 AM CDT [facility] Platelet Count 174 157 - 371 x10(9)/L 12/13/2023 6:20 AM CDT [facility] Leukocytes 16.5(H) 3.4 - 9.6 x10(9)/L 12/13/2023 6:20 AM CDT [facility] Neutrophils 15.05(H) 1.56 - 6.45 x10(9)/L 12/13/2023 6:20 AM CDT [facility] Lymphocytes 0.75(L) 0.95 - 3.07 x10(9)/L 12/13/2023 6:20 AM CDT [facility] Monocytes 0.61 0.26 - 0.81 x10(9)/L 12/13/2023 6:20 AM CDT [facility] Eosinophils <0.03 0.03 - 0.48 x10(9)/L 12/13/2023 6:20 AM CDT [facility] Basophils 0.03 0.01 - 0.08 x10(9)/L 12/13/2023 6:20 AM CDT [facility] Blood (Blood, Venous) 12/13/2023 5:55 AM CDT 12/13/2023 6:17 AM CDT Malka Montero M.D. LAB BLOOD ADD-ON [facility] [address] [place] [address], [facility] ST[facility] [address] [place] [address] [facility] [address] [place] [address] * Bacteria / Windy Culture, Blood #1 (12/13/2023 5:43 AM CDT) [facility] Bacteria/Mandi da Culture, Blood No growth after 5 days of incubation. 12/18/2023 7:02 AM CDT DTL Blood (Blood, Peripheral Draw) 12/13/2023 5:43 AM CDT 12/13/2023 6:34 AM CDT Comment:Specimen Source Site : Blood Malka Montero M.D. LAB MICROBIOLOGY - G ENERAL ORDERABLES Performing Organization Address [facility] Co de Phone Number [facility] 200 [place] [address], [facility] 200 [place] [address] * (ABNORMAL) Lipase (12/13/2023 5:33 AM CDT) [facility] Lipase, S 12(L) 13 - 60 U/L 12/13/2023 10:35 AM CDT DT Blood (Blood, Venous) 12/13/2023 5:33 AM CDT 12/13/2023 10:09 AM CDT Malka Montero M.D. LAB BLOOD ADD-ON Performing Organization Address [facility] Co de Phone Number [facility] 200 [place] [address], [address] [address] documented in this encounter Visit Diagnoses Diagnosis Cholangitis Acute (HCC)- Primary Stone Common Duct Stricture Biliary (HCC) documented in this encounter Admitting Diagnoses Diagnosis Stone Common Duct documented in this encounter Administered Medications Inactive Administered Medications - up to 3 most recent administrations Medication Order MAR Action Action Date Dose Rate Site acetaminophen tablet 500 mg (TYLENOL) 500 mg, oral, Every 6 hours PRN, mild pain or score 1-3 of 10, moderate pain or score 4-6 of 10, severe pain or score 7-10 of 10, headaches, Starting on Mon12/13/23 at 0451 Given 12/14/2023 3:19 PM CDT 500 mg Given 12/14/2023 2:01 AM CDT [address] tablet 81 mg 81 mg, oral, Daily, First dose on Mon12/13/23 at 0900, Swallow whole. Do NOT crush, chew, or split tablet. Given 12/15/2023 8:38 AM CDT 81 mg Given 12/14/2023 8:33 AM CDT 81 mg cefTRIAXone in dextrose (iso osm) IVPB 2 g (ROCEPHIN) 2 g, intravenous, at 200 mL/hr, Administer over 15 Minutes, Every 24 hours, First dose on Mon12/14/23 at 0100, Drug Monitoring Program: Pharmacist to adjust medication dosing based on indication and drug clearance factors., Indications: Intra-abdominal infection, community acquired New Bag 12/14/2023 1:23 AM CDT 2 g 200 mL/hr ciprofloxacin tablet 500 mg (CIPRO) 500 mg, oral, 2 times daily before breakfast and dinner, First dose on Mon12/15/23 at 0700, For 5 days, Take 2 hours before or 6 hours after antacids containing magnesium or aluminum, sucralfate, didanosine, polymeric phosphate binders, or products containing calcium, iron, or zinc., Drug Monitoring Program: Pharmacist to adjust medication dosing based on indication and drug clearance factors., Indications: Intra-abdominal infection, community acquired Given 12/15/2023 6:19 AM CDT 500 mg clopidogreL tablet 75 mg (PLAVIX) 75 mg, oral, Daily, First dose (after last modification) on Mon12/15/23 at 1215 Given 12/15/2023 12:21 PM CDT 75 mg insulin aspart U-100 injection 0-13 Units (NovoLOG FlexPen) 0-13 Units, subcutaneous, 3 times daily, First dose on Mon12/13/23 at 0800, Insulin Scale: Moderate Correction Scale, 140 - 179: 2 units, 180 - 219: 4 units, 220 - 259: 6 units, 260 - 299: 8 units, 300 - 339: 10 units, 340 - 379: 12 units, 380 - 399: 13 units, Greater than 399: Call service writing Insulin orders Given 12/15/2023 12:23 PM CDT 4 Units Left Upper Abdomen Given 12/15/2023 9:02 AM CDT 4 Units Le ft Lower Abdomen Given 12/14/2023 6:20 PM CDT 2 Units Le ft Lower Abdomen metroNIDAZOLE tablet 500 mg (FLAGYL) 500 mg, oral, 3 times daily, First dose on Mon12/13/23 at 0900, Indications: Intra-abdominal infection, community acquired Given 12/15/2023 12:31 PM CDT 500 mg Given 12/15/2023 8:39 AM CDT 500 mg Given 12/14/2023 8:34 PM CDT 500 mg polyethylene glycol powder packet 17 g (MIRALAX) 17 g, oral, Daily, First dose on Mon12/13/23 at 0900, Ordered sequence of administration: polyethylene glycol, then bisacodyl until BM achieved. Avoid mixing with starch-based thickened liquids. Given 12/14/2023 8:33 AM CDT 17 g sennosides-docusate sodium 8.6-50 mg per tablet 1 tablet (SENOKOT-S) 1 tablet, oral, 2 times daily, First dose on Mon12/13/23 at 0900 Given 12/15/2023 8:39 AM CDT 1 tablet Given 12/14/2023 8:34 PM CDT 1 tablet Given 12/14/2023 8:33 AM CDT 1 tablet documented in this encounter Active and Recently Administered Medications Times are shown in CDT. Scheduled Medication Order 12/13/2023 12/14/2023 12/15/[address] tablet 81 mg 81 mg, oral, Daily, First dose on Mon12/13/23 at 0900, Swallow whole. Do NOT crush, chew, or split tablet. 1122 (Not Given - Provider: Salena Arreola R.N. - Reason: See Provider Order - Comment: Held per providers order due to testing today) 0833 (Given - Provider: Sandra Rizvi RHerbertN.) 0838 (Given - Provider: Sandra Rizvi RHerbertNHerbert) atorvastatin tablet 20 mg (LIPITOR) 20 mg, oral, Daily with dinner, First dose on Mon12/13/23 at 1700 0510 (Held by provider - Provider: Malka Montero M.D. - Comment: Hold for elevated LFTs)1700 (Dose Auto Held - Provider: Malka Montero M.D.) 1700 (Dose Auto Held - Provider: Malka Montero M.D.) 1152 (Unheld by provider - Provider: Surinder Conroy M.D.) cefTRIAXone in dextrose (iso osm) IVPB 2 g (ROCEPHIN) (CANCELED) 2 g, intravenous, at 200 mL/hr, Administer over 15 Minutes, Every 24 hours, First dose on Mon12/14/23 at 0100, Drug Monitoring Program: Pharmacist to adjust medication dosing based on indication and drug clearance factors., Indications: Intra-abdominal infection, community acquired 0123 (New Bag - Provider: Hyacinth Mckeon R.N.) ciprofloxacin tablet 500 mg (CIPRO) 500 mg, oral, 2 times daily before breakfast and dinner, First dose on Mon12/15/23 at 0700, For 5 days, Take 2 hours before or 6 hours after antacids containing magnesium or aluminum, sucralfate, didanosine, polymeric phosphate binders, or products containing calcium, iron, or zinc., Drug Monitoring Program: Pharmacist to adjust medication dosing based on indication and drug clearance factors., Indications: Intra-abdominal infection, community acquired 0619 (Given - Provider: Geovanny De Los Santos R.N.) clopidogreL tablet 75 mg (PLAVIX) 75 mg, oral, Daily, First dose (after last modification) on Mon12/15/23 at 1215 1221 (Given - Provider: Sandra Rizvi R.N.) insulin aspart U-100 injection 0-13 Units (NovoLOG FlexPen) 0-13 Units, subcutaneous, 3 times daily, First dose on Mon12/13/23 at 0800, Insulin Scale: Moderate Correction Scale, 140 - 179: 2 units, 180 - 219: 4 units, 220 - 259: 6 units, 260 - 299: 8 units, 300 - 339: 10 units, 340 - 379: 12 units, 380 - 399: 13 units, Greater than 399: Call service writing Insulin orders 0921 (Given - Provider: Salena Arreola R.N.)1449 (Not Given - Provider: Salena Arreola R.N. - Reason: Other - Comment: Having procedure,)1639 (Given - Provider: Salena Arreola R.N.) 0829 (Not Given - Provider: Sandra Rizvi R.N. - Reason: Order parameters not met)1357 (Given - Provider: Sandra Rizvi RHerbertNHerbert)1820 (Given - Provider: Sandra Rizvi R.N.) 0902 (Given - Provider: Liss RiosNHerbert)1223 (Given - Provider: Liss RiosNHerbert) metroNIDAZOLE tablet 500 mg (FLAGYL) 500 mg, oral, 3 times daily, First dose on Mon12/13/23 at 0900, Indications: Intra-abdominal infection, community acquired 09 (Not Given - Provider: Criss Echols R.N. - Reason: Patient not available - Comment: off unit for procedure)1400 (Not Given - Provider: Criss Echols R.N. - Reason: Patient not available - Comment: pt off unit for procedure)2035 (Given - Provider: Hyacinth Mckeon R.N.) 0833 (Given - Provider: Liss RiosNHerbert)1357 (Given - Provider: Liss RiosNHerbert)2033 (Given - Provider: Geovanny De Los Santos R.N.) 0839 (Given - Provider: Liss RiosNHerbert)1231 (Given - Provider: Liss RiosNHerbert) polyethylene glycol powder packet 17 g (MIRALAX) 17 g, oral, Daily, First dose on Mon12/13/23 at 0900, Ordered sequence of administration: polyethylene glycol, then bisacodyl until BM achieved. Avoid mixing with starch-based thickened liquids. 1017 (Not Given - Provider: Salena Arreola R.N. - Reason: Patient/family refused) 0833 (Given - Provider: Sandra Rizvi R.N.) 0839 (Not Given - Provider: Liss RiosNHerbert - Reason: Patient/family refused) sennosides-docusate sodium 8.6-50 mg per tablet 1 tablet (SENOKOT-S) 1 tablet, oral, 2 times daily, First dose on Mon12/13/23 at 0900 1016 (Not Given - Provider: Salena Arreola R.N. - Reason: Patient/family refused)2034 (Not Given - Provider: Hyacinth Mckeon R.N. - Reason: Patient/family refused) 0833 (Given - Provider: Sandra Rizvi RRafal)2033 (Given - Provider: Geovanny De Los Santos RHerbertNHerbert) 6855 (Given - Provider: Sandra Rizvi R.N.) PRN Medication Order 12/13/2023 12/14/2023 12/15/2023 acetaminophen tablet 500 mg (TYLENOL) 500 mg, oral, Every 6 hours PRN, mild pain or score 1-3 of 10, moderate pain or score 4-6 of 10, severe pain or score 7-10 of 10, headaches, Starting on Mon12/13/23 at 0451 0201 (Given - Provider: Hilary Mckeon RRafal)1519 (Given - Provider: Anne Altamirano RRafal) documented in this encounter
--- OUTSIDE RECORDS SUMMARY | 2023-12-18 17:55 | XMS_ITS | Encounter Summary ---
Author Name Unknown Organization [facility] Address [address] [place] [address] Care Team Providers Care Professor Of Mechanical Engineering Name Role Phone Unavailable Primary Care Provider Unavailabl e Encounter Details Date Type Department Care Team (Latest Contact Info) Description 10/02/2023 Clinical Communication Department of Ophthalmology in [address] [phone] Mauri Farrell M.D. [address] [place] [phone] Social History Tobacco Use Types Packs/Day Years [...] CDT Comprehensive Visit Division of Gastroenterology in [place], [place] [address] [place] [phone] Audra Doss C.N.P. [address] [place] [phone] Omid Dillard M.D. [address] [place] [phone] 12/29/2023 9:00 AM CDT Clinical Support Department of Nutrition and Diabetes Education in [place], [place] [address] [place] [phone] Calvin Bailey M.D. [address] [place] [phone] Maricruz Ryan M.S., RDN, LD [address] [place] [phone] 01/15/2024 8:00 AM CDT Procedure visit Department of Urology in [address] [phone] Alejandra Souza P.A.-C. [address] [phone] Discharge Disposition: Home or Self Care 01/15/2024 11:45 AM CDT Appointment Division of Gastroenterology in [place], [place] [address] [place] [phone] Calvin Bailey M.D. [address] [place] [phone] documented as of this encounter Visit Diagnoses Not on filedocumented in this encounter
--- OUTSIDE RECORDS SUMMARY | 2023-12-18 17:55 | XMS_ITS | Encounter Summary ---
Author Name Unknown Organization [facility] Address [address] [place] [address] Care Team Providers Care Manager Card Name Role Phone Unavailable Primary Care Provider Unavailabl e Reason for Referral * Outpatient (Routine) - Authorized Specialty Diagnoses / Procedures Referred By Contact Referred To Contact Gastroenterology and Hepatology Diagnoses Abnormal Findings On Diagnostic Imaging Of Other Abdominal Regions Including Retroperitoneum Audra Doss, C.N.P. [address] [place] [address] [facility] Referral ID Status Reason Start Date Expiration Date V isits Requested Visits Authorized [id number] Authorized 11/16/2023 05/17/2025 1 1 Encounter Details Date Type Department Care Team (Late st Contact Info) Description 11/16/2023 [facility] [address] [place] [address] Audra Doss, C.N.P. [address] [place] [phone] Abnormal Findings On Diagnostic Imaging Of Other Abdominal Regions Including Retroperitoneum (Primary Dx) Social History Tobacco Use Types Packs/Day Years Used Date Smoking Tobacco: Never Smokeless Tobacco: Never Alcohol Use Standard Drinks/Week Comments No 0 (1 standard drink = 0.6 oz pur e alcohol) [facility] Utilities Answer Date Recorded In the past 12 months has th e electric, gas, oil, or water Companion Canine threatened to shut off services in your [...] your living situation today? [facility] 12/13/2023 Sex and [...] CDT Comprehensive Visit Division of Gastroenterology in [place], [place] [address] [place] [phone] Audra Doss C.NMj [address] [place] [phone] Omid Dillard M.D. [address] [place] [phone] 12/29/2023 9:00 AM CDT Clinical Support Department of Nutrition and Diabetes Education in [place], [place] [address] [place] [phone] Calvin Bailey M.D. [address] [place] [phone] Maricruz Ryan M.SHerbert, RDN, LD [address] [place] [phone] 01/15/2024 8:00 AM CDT Procedure visit Department of Urology in [address] [phone] Alejandra Souza P.A.-CHerbert [address] [phone] Discharge Disposition: Home or Self Care 01/15/2024 11:45 AM CDT Appointment Division of Gastroenterology in [place], [place] [address] [place] [phone] Calvin Baiely M.D. [address] [place] [phone] Scheduled Referrals Name Type Priority Associated Diagnoses [...]
--- OUTSIDE RECORDS SUMMARY | 2023-12-18 17:55 | XMS_ITS | Encounter Summary ---
Author Name Unknown Organization [facility] Address [address] [place] [address] Care Team Providers Care Rodeo Performer Name Role Phone Unavailable Primary Care Provider Unavailabl e Reason for Visit * Reason Onset Date Comments Pre-visit Intake 11/23/2023 OSM 11/23/2023 GIH Encounter Details Date Type Department Care Team (Latest Contact Info) Description 11/23/2023 Clinical Communication Division of Gastroenterology in [place], [place] [address] [place] [phone] Provider, Unknown Pre-visit Intake; OSM (GIH/) Social [...] Facility and date completed: CT Scan at [place], [place], Records Needed: All office visits notes from Primary Care, GI, Hematology, Oncology, Genetics, Surgery, ER ER, Admission and Discharge notes and summaries EGD, Colonoscopy, EUS, ERCP reports All Labs, stool studies, and genetic reports Pathology reports for Pancreas fine needle aspiration/fine needle biopsy, brushings Facility and date completed: Labs on November 13, 2023, at [place], [place], Appointment Scheduled: No Do you want a reply once all OSM/Images are uploaded? NO Note: You will still get replies if not all records are obtained. Please reply to T [facility] Nurse. documented in this encounter Plan of Treatment Upcoming Encounters Date Type Department Care Team (Latest Contact Info) Description 12/20/2023 8:00 AM CDT Comprehensive Visit Division of Gastroenterology in [place], [place] [address] [place] [phone] Audra Doss C.NAlcira. 1999 [place] [phone] Omid Dillard M.D. [address] [place] [phone] 12/29/2023 9:00 AM CDT Clinical Support Department of Nutrition and Diabetes Education in [place], [place] [address] [place] [phone] Calvin Bailey M.D. [address] [place] [phone] Maricruz Ryan M.S., RDN, LD [address] [place] [phone] 01/15/2024 8:00 AM CDT Procedure visit Department of Urology in [place], [place] [address] [place] [phone] Alejandra Souza P.A.-C. 0 [place] [phone] Discharge Disposition: Home or Self Care 01/15/2024 11:45 AM CDT Appointment Division of Gastroenterology in [place], [place] [address] [place] [address] Calvin Bailey M.D. [address] [place] [phone] documented as of this encounter Visit Diagnoses Not on filedocumented in this encounter
--- OUTSIDE RECORDS SUMMARY | 2023-12-18 17:55 | XMS_ITS | Clinical Summary ---
Author Name Unknown Organization [facility] Address [place], [place] [address] Care Team Providers Care Jig Builder Name Role Phone Marya Hong ELECTROTYPE FINISHER Unavailable [phone] Tarsha CRAWFORD MD, John Conteh Primary Care [...] glucose scanning reader (FreeStyle Barbie 14 Day [place]) miscIndications:Type 2 diabetes mellitus without complication, without [...] 1 Brother 2 Daughter Father (Age 72) [place] Mother (Age 69) Sister (Age 40) aneurysm [...] 65+ 04/14/2024 Medical Devices Implanted Type Area Burlapper Device Identifier Shelf Expiration Date Model / Serial / Lot Tissue Pericardium 0.8x8cm Xenosure - [id number] Implanted:Qty: 1 on 01/19/2023 by Yaya Lewis MD at [facility] Left: Carotid Artery [employer] 10/11/2028 0.8P8 / / [id number] Advance Directives * Full Code (Latest Code Status on File) Date Activated Date Inactivated Comments 01/19/2023 11:24 AM 01/20/2023 4:12 PM Question Answer Comments Code Status Discussion: Unable to Assess Preferences, Provider to review later * Full Code Date Activated Date Inactivated Comments 01/03/2023 9:22 PM 01/05/2023 9:11 PM Question Answer Comments Code Status Discussion: Reviewed Preferences Care Teams Jig Builder Relationship Specialty Start Date End Date John Willingham II, MD [address] [place] [phone] PCP - General Family Practice 05/03/22 Mayra Hong NP Nurse Practitioner Nurse Practitioner 11/07/14
--- OUTSIDE RECORDS SUMMARY | 2023-12-18 17:55 | XMS_ITS | Encounter Summary ---
Author Name Unknown Organization [facility] Address [address] [place] [address] Care Team Providers Care Chainstitch Binder Name Role Phone Unavailable Primary Care Provider Unavailabl e Reason for Visit * Reason Onset Date Comments Communication 11/03/2023 Encounter Details Date Type Department Care Team (Late st Contact Info) Description 11/03/2023 Clinical Communication Department of Urology in [address] [phone] Alejandra Souza, P.AHerbert-CHerbert [address] [phone] Communication Social History Tobacco Use [...] CDT Comprehensive Visit Division of Gastroenterology in [place], [place] [address] [place] [phone] Audra Doss C.NHerbertP. 1999 [place] [phone] Omid Dillard M.D. [address] [place] [phone] 12/29/2023 9:00 AM CDT Clinical Support Department of Nutrition and Diabetes Education in [place], [place] [address] [place] [phone] Calvin Bailey M.D. [address] [place] [phone] Mraicruz Ryan M.S., RDN, LD [address] [place] [phone] 01/15/2024 8:00 AM CDT Procedure visit Department of Urology in [address] [phone] Alejandra Souza P.A.-C. [address], [place] [phone] Discharge Disposition: Home or Self Care 01/15/2024 11:45 AM CDT Appointment Division of Gastroenterology in [place], [place] [address] [place] [address] Calvin Bailey M.D. [address] [place] [phone] documented as of this encounter Visit Diagnoses Not on filedocumented in this encounter
--- OUTSIDE RECORDS SUMMARY | 2023-12-18 17:55 | XMS_ITS | Encounter Summary ---
Author Name Unknown Organization [facility] Address [address] [place] [address] Care Team Providers Care Rn Or Lpn Name Role Phone Unavailable Primary Care Provider Unavailabl e Encounter Details Date Type Department Care Team ( Contact Info) Description 10/19/2023 Orders Only Department of Urology in [address] [phone] Alejandra Souza, P.A.-C. [address] [phone] Social History Tobacco Use Types Packs/Day Years [...] CDT Comprehensive Visit Division of Gastroenterology in [place], [place] [address] [place] [address] Audra Doss C.N.P. [address] [place] [phone] Omid Dillard M.D. [address] [place] [phone] 12/29/2023 9:00 AM CDT Clinical Support Department of Nutrition and Diabetes Education in [place], [place] [address] [place] [phone] Calvin Bailey M.D. [address] [place] [phone] Maricruz Ryan M.S., RDN, LD [address] [place] [phone] 01/15/2024 8:00 AM CDT Procedure visit Department of Urology in [address] [phone] Alejandra Souza, MassielAHerbert-C. [address] [phone] Discharge Disposition: Home or Self Care 01/15/2024 11:45 AM CDT Appointment Division of Gastroenterology in [place], [place] [address] [place] [phone] Calvin Bailey M.D. [address] [place] [phone] documented as of this encounter Visit Diagnoses Not on filedocumented in this encounter
--- OUTSIDE RECORDS SUMMARY | 2023-12-18 17:55 | XMS_ITS | Encounter Summary ---
Author Name Unknown Organization [facility] Address [address] [place] [address] Care Team Providers Care Assessment Analyst Name Role Phone Unavailable Primary Care Provider Unavailabl e Reason for Referral * Outpatient (Routine) - Closed Specialty Diagnoses / Procedures Referred By Gary t Referred To Contact Urology Diagnoses Urinary Tract Infection (UTI)/Bacteriuria NOS Audra Doss, C.N.P. [address] [place] [phone] [facility] Region Referral ID Status Reason Start Date Expiration Date Visits Re quested Visits Authorized [id number] Closed 10/17/2023 04/17/2025 1 1 A P MANAGER Encounter Details Date Type Department Care Team (Late st Contact Info) Description 10/17/2023 [facility] [address] [place] [address] Audra Doss, C.N.P. [address] [place] [phone] Urinary Tract Infection (UTI)/Bacteriuria NOS (Primary Dx) [...] CDT Comprehensive Visit Division of Gastroenterology in [place], [place] [address] [place] [address] Audra Doss C.NMj [address] [place] [phone] Omid Dillard M.D. [address] [place] [phone] 12/29/2023 9:00 AM CDT Clinical Support Department of Nutrition and Diabetes Education in [place], [place] [address] [place] [phone] Calvin Bailey M.D. [address] [place] [phone] Maricruz Ryan M.SHerbert, RDN, LD [address] [place] [phone] 01/15/2024 8:00 AM CDT Procedure visit Department of Urology in [address] [phone] Alejandra Souza, MassielAHerbert-Lashaun [address] [place] [phone] Discharge Disposition: Home or Self Care 01/15/2024 11:45 AM CDT Appointment Division of Gastroenterology in [place], [place] [address] [place] [address] Calvin Bailey M.D. 200 [place] [phone] Scheduled Referrals Name Type Priority Associated Diagnoses Orde r Schedule Urology Referral Outpatient Referral Routine Urinary Tract Infection (UTI)/Bacteriuria NOS Expected: 10/17/2023 (Approximate), Expires: 01/16/2025 documented as of this encounter Visit Diagnoses Diagnosis Urinary Tract Infection (UTI)/Bacteriuria NOS- Primary documented in this encounter
--- OUTSIDE RECORDS SUMMARY | 2023-12-18 17:55 | XMS_ITS | Encounter Summary ---
Author Name Unknown Organization [facility] Address [address] [place] [address] Care Team Providers Care Fine Arts Instructor Name Role Phone Unavailable Primary Care Provider Unavailsienna e Reason for Referral * Outpatient (Routine) - Authorized Specialty Diagnoses / Procedures Referred By Contac t Referred To Contact Diagnoses Cystitis Recurrent Procedures Cystoscopy (specific provider) Alejandra Souza P.A.-C. [address] [phone] Alejandra Souza P.A.-C. [address] [place] [phone] Referral ID Status Reason Start Date Expiration Date V isits Requested Visits Authorized [id number] Authorized 10/18/2023 10/17/2024 1 1 RT FREIGHT MANAGER * MRI/CAT/PET Scan (Routine) - Authorized Specialty Diagnoses / Procedures Referred By Contac t Referred To Contact Radiology Diagnoses Urinary Tract Infection Site Not Specified Procedures CT Urogram without and with IV Contrast Alejandra Souza P.A.-C. [address] [place] [phone] [facility] Referral ID Status Reason Start Date Expiration Date V isits Requested Visits Authorized [id number] Authorized 10/18/2023 10/17/2024 1 1 RT FREIGHT MANAGER Reason for Visit * Appointment Request (Routine) - Closed Specialty Diagnoses / Procedures Referred By Gary elliott Referred To Contact Urology Referral ID Status Reason Start Date Expiration Date Visits Re quested Visits Authorized [id number] Closed 10/17/2023 10/16/2024 1 1 Encounter Details Date Type Department Care Team (Latest Contact Info) Description 10/18/2023 2:30 PM EXPORT FREIGHT MANAGER Comprehensive Visit Department of Urology in [address] [phone] Alejandra Souza P.A.-C. [address] [phone] Cystitis Recurrent (Primary Dx); Urinary Tract Infection [...] Alejandra Souza P.A.-C. - 10/18/2023 2:30 PM EXPORT FREIGHT MANAGER # 1 recurrent UTI # 2 gross [...] daily Macrobid (will consider replacing with methenamine/vitC) RT FREIGHT MANAGER documented in this encounter Consult Notes * Alejandra Souza P.A.-C. - 10/18/2023 2:30 PM CST SUBJECTIVE CHIEF COMPLAINT/REASON FOR VISIT Face to Face, uro clinic PEDRITO - limited records (Macrobid 50mg daily) Present UTI - cephalexin (rash) HISTORY OF PRESENT ILLNESS Pleasant 83-year-old presents today direction of her primary care team, [place]. For further discussion of recurrent UTI for [...] needed when you feel you have infection ([place] system) Therapeutic considerations: - excellent hydration minimum [...] CDT Comprehensive Visit Division of Gastroenterology in [place], [place] [address] [place] [address] Audra Doss C.N.P. [address] [place] [phone] Omid Dillard M.D. [address] [place] [phone] 12/29/2023 9:00 AM CDT Clinical Support Department of Nutrition and Diabetes Education in [place], [place] [address] [place] [address] Calvin Bailey M.D. [address] [place] [phone] Maricruz Ryan M.S., RDN, LD [address] [place] [phone] 01/15/2024 8:00 AM CDT Procedure visit Department of Urology in [address] [phone] Alejandra Souza P.A.-C. [address] [phone] Discharge Disposition: Home or Self Care 01/15/2024 11:45 AM CDT Appointment Division of Gastroenterology in [place], [place] [address] [place] [address] Calvin Bailey M.D. [address] [place] [phone] Scheduled Orders Name Type Priority Associated Diagnoses [...] Name Priority Date/Time Associated Diagnosis Comments CYTOLOGY NON-CHIEF VENDOR QUALITY Routine 10/18/2023 4:12 PM EXPORT FREIGHT MANAGER Cystitis Recurrent BACTERIAL CULTURE, AEROBIC + SUSC, URINE Routine 10/18/2023 4:11 PM EXPORT FREIGHT MANAGER Cystitis Recurrent URINALYSIS WITH MICROSCOPIC Routine 10/18/2023 4:11 PM EXPORT FREIGHT MANAGER Cystitis Recurrent documented in this encounter Results * Cytology Non-CHIEF VENDOR QUALITY (10/18/2023 4:12 PM EXPORT FREIGHT MANAGER) 10/20/2023 10:42 AM EXPORT FREIGHT MANAGER ECLR Fixative n/a 10/20/2023 10:42 AM EXPORT FREIGHT MANAGER ECLR Report electronically signed by Romie Moran M.D. I verify that I have examined all relevant slides/material s for the specimen(s) and rendered or confirmed the diagnosis. 10/20/2023 10:42 AM EXPORT FREIGHT MANAGER ECLR Gross Description Received 40 cc of cloudy yellow fluid without fixative. 10/20/2023 10:42 AM EXPORT FREIGHT MANAGER ECLR Collection Procedure Straight cath 10/20/2023 10:42 AM EXPORT FREIGHT MANAGER ECLR Source A. Urine, straight, catheterized 10/20/2023 10:42 AM EXPORT FREIGHT MANAGER ECLR Clinical History recurrent UTIs 03/2024 10:42 AM EXPORT FREIGHT MANAGER ECLR Interpretation A. Urine, straight, catheterized (cytospin): Negative for High-Grade Urothelial Carcinoma. Crystals present. 10/20/2023 10:42 AM EXPORT FREIGHT MANAGER ECLR Urine 10/18/2023 4:12 PM EXPORT FREIGHT MANAGER 10/19/2023 1:48 PM EXPORT FREIGHT MANAGER Alejandra Souza P.A.-C. LAB SURG PATH OR DERABLES Performing Organization Address [facility] Co de Phone Number [facility] [address] [place] [phone], [facility] ECLR [address] [place] [phone] * Bacterial Culture, Aerobic + Susceptibility, Urine (10/18/2023 4:11 PM EXPORT FREIGHT MANAGER) Urine Culture No growth after 1 day of incubation. 10/19/2023 3:19 PM EXPORT FREIGHT MANAGER ECLR Urine (Urine, Straight Catheter) 10/18/2023 4:11 PM EXPORT FREIGHT MANAGER 10/18/2023 8:40 PM EXPORT FREIGHT MANAGER Comment:Specimen Source Site : Urine Alejandra Souza P.A.-C. LAB MICROBIOLOGY - GENERAL ORDERABLES Performing Organization Address [facility] Co de Phone Number [facility] [address] [place] [phone], [facility] ECLR [facility] in [address] [address] * (ABNORMAL) Urinalysis, with Microscopic: Urine, Straight Catheter (10/18/2023 4:11 PM EXPORT FREIGHT MANAGER) Source Urine, Urine, Straight Catheter 10/18/2023 4:39 PM EXPORT FREIGHT MANAGER RDWG Clarity Cloudy(A) Clear 10/18/2023 4:39 PM EXPORT FREIGHT MANAGER [facility]DW[facility] Color Ludmila 10/18/2023 4:39 PM EXPORT FREIGHT MANAGER RDWG Comment: ----REFERENCE VALUE---- Colorless Yellow [place] Blood Negative Negative 10/18/2023 4:39 PM EXPORT FREIGHT MANAGER RDW[facility] Nitrite Negative Negative 10/18/2023 4:39 PM EXPORT FREIGHT MANAGER RDW[facility] Leukocyte Esterase Negative Negative 10/18/2023 4:39 PM EXPORT FREIGHT MANAGER RDW[facility] Protein 30(A) mg/dL 10/18/2023 4:39 PM EXPORT FREIGHT MANAGER RDW[facility] Comment: ----REFERENCE VALUE---- Negative Trace Glucose 250(A) Negative mg/dL 10/18/2023 4:39 PM EXPORT FREIGHT MANAGER RDW[facility] Ketone Trace(A) Negative mg/dL 10/18/2023 4:39 PM EXPORT FREIGHT MANAGER RDW[facility] Bilirubin Small(A) Negative 10/18/2023 4:39 PM EXPORT FREIGHT MANAGER RDW[facility] pH 5.5 5.0 - 8.0 10/18/2023 4:39 PM EXPORT FREIGHT MANAGER RDW[facility] Specific [place] 1.021 1.001 - 1.035 10/18/2023 4:39 PM EXPORT FREIGHT MANAGER RDWG Urobilinogen 1.0 0.2 - 1.0 mg/dL 10/18/2023 4:39 PM EXPORT FREIGHT MANAGER RDW[facility] White Blood Cells 11-20(A) /hpf 10/18/2023 6:05 PM EXPORT FREIGHT MANAGER [facility] Comment: ----REFERENCE VALUE---- Males: 0-3 Females: 0-10 Unknown: 0-10 Red Blood Cells 3-10(A) 0 - 2 /hpf 6:05 PM EXPORT FREIGHT MANAGER [facility] Dysmorphic Red Blood Cells <=25 <=25 % 10/18/2023 6:05 PM EXPORT FREIGHT MANAGER RDW[facility] Hyaline Casts None Seen /lpf 10/18/2023 6:05 PM EXPORT FREIGHT MANAGER RDW[facility] Granular Casts 4-10(A) None Seen /lpf 10/18/2023 6:05 PM EXPORT FREIGHT MANAGER R[facility] Squamous Cells 4-10 /hpf 10/18/2023 6:05 PM EXPORT FREIGHT MANAGER R[facility] Urine (Urine, Straight Catheter) 10/18/2023 4:11 PM EXPORT FREIGHT MANAGER 10/18/2023 4:25 PM EXPORT FREIGHT MANAGER Alejandra Souza P.A.-C. LAB URINE ORDERA [facility] [address] [place] [address], [facility] RDWG [facility] in [place] [address] [place] [address] documented in this encounter Visit Diagnoses Diagnosis Cystitis Recurrent- Primary Urinary Tract Infection Site Not Specified Dysfunction Voiding documented in this encounter
== END 2023-12-13 02:38 | disposition home or self-care (01) ==
LOC: AMB 12-18 17:51
PROVIDERS: PCP Nurse Practitioner Family; Visit Provider Family Medicine
DX: K81.9 Cholecystitis, unspecified (principal)
CPT/HCPCS: A0425; A0429

== ENCOUNTER 2024-01-20 11:56 | Inpatient (IN) | payer MEDICARE, SELFPAY ==
[2024-01-20] VITALS (19 sets, daily range): BP systolic 92–141; BP diastolic 60–72; PULSE 73–85; RESP 16–18; TEMP 36.7–37; O2SAT 87–98; BMI 22.2
--- NOTE | 2024-01-20 12:26 | CRLHL7_ITS ---
For Patients: As a result of the Century Cures Act, medical imaging exams and procedure reports are released immediately into your electronic medical record. You may view this report before your referring provider. If you have questions, please contact your health care provider. Indication: Abdominal pain. Technique: CT of the abdomen and pelvis was performed without contrast. Comparison: 12/12/2023. Findings: Visualized lung bases: Linear scarring versus subsegmental atelectasis in the visualized lung bases. Liver: New pneumobilia predominantly within the left hepatic lobe. Interval placement of a common bile duct stent. Gallbladder is not visualized. Pancreas: Mild stranding in the region of the pancreatic head, more pronounced than prior. There is a new bilobed fluid attenuation structure inferior to the pancreatic head measuring 2.9 x 1.5 cm in axial dimensions (2/59). Additionally, there is a new fluid collection inferior to the 3rd portion of the duodenum measuring 5.1 x 1.9 cm in axial dimensions (2/68). Spleen: Unremarkable for unenhanced technique. Adrenals: Unremarkable for unenhanced technique. Kidneys: Left lower pole renal cortical scarring. No hydronephrosis or nephrolithiasis. Aorta/IVC: Extensive atherosclerotic aortic calcifications without aneurysmal dilation. Lymph nodes: No lymphadenopathy. Bowel: Nonobstructed bowel. Mild stranding along the 2nd portion of the duodenum, more conspicuous. Appendix is not definitively visualized. No intraperitoneal free air or fluid. Pelvis: Limited evaluation due to beam hardening artifact from the patient`s hip prostheses. Bones/body wall: Partially visualized bilateral hip prostheses. Multilevel degenerative disc disease and facet arthropathy. Osseous demineralization. Impression: 1. Interval placement of a common bile duct stent with new pneumobilia. New stranding about the pancreatic head with adjacent fluid collections along the pancreatic head and 3rd portion of the duodenum, which raises concern for post ERCP pancreatitis with peripancreatic fluid collections. Per discussion with Dr. Engle, findings fit the patient`s clinical exam with elevated serum lipase. 2. Additional chronic/incidental findings as described. Please note that all CT scans at this facility use dose modulation, iterative reconstruction, and/or weight-based dosing when appropriate to reduce radiation dose to as low as reasonably achievable. Dictated by Manuela Beaver MD @ 01/20/2024 1:52:56 PM (Electronically Signed)
--- NOTE | 2024-01-20 12:27 | ED.GENADULT ---
HPI - General Adult General Chief complaint: Abdominal Pain Stated complaint: Abdominal pain Time Seen by Provider: 01/20/24 12:02 History of Present Illness HPI narrative: Patient is an 83 year white female spent up until a few days ago at [place] with post ERCP pancreatitis. She had a pancreatic biopsy that was negative but they were concerned she might have pancreatic cancer. She has dilated common duct and intrahepatic bile ducts. She had a common duct stent placed. She continues to have abdominal pain. She reports she had abdominal pain when she left the hospital at [place] and continues to have abdominal pain. It is waxing and waning. There was some discussion of hospice. I do not have records of her her recent visit to [facility]. The patient denies chest pain or breathing problem, does report abdominal discomfort. She has been passing flatus, had urine output and has not been vomiting. Related Data Home Medications ?Medication ?Instructions ?Recorded ?Confirmed cholecalciferol (vitamin D3) 25 1,000 unit PO DAILY 01/30/23 11/16/23 mcg (1,000 unit) capsule alpha lipoic acid 125 mg-biotin 95 cap PO DAILY 11/02/23 11/16/23 mcg-berberine 250 mg capsule d-mannose 500 mg capsule (AZO See Rx Instructions PO .COMPLEX 11/02/23 11/16/23 D-Mannose) triamcinolone acetonide 0.5 % 1 applic topical BID PRN 11/02/23 11/16/23 topical cream vitamin B complex 1 tab PO QDAY 11/02/23 11/16/23 Previous Rx's ?Medication ?Instructions ?Recorded blood-glucose sensor (FreeStyle #1 ea 08/25/22 Barbie 3 Sensor device) flash glucose scanning reader #1 ea 08/25/22 (FreeStyle Barbie 14 Day [place]) atorvastatin 20 mg tablet (Lipitor) 20 mg PO QHS 90 days #90 tabs 01/28/23 clopidogrel 75 mg tablet (Plavix) 75 mg PO QDAY 90 days #90 tabs 01/28/23 aspirin 81 mg tablet,delayed 81 mg PO QDAY 90 days #90 tabs 03/16/23 release (Adult Aspirin Regimen) flash glucose sensor (FreeStyle #2 ea 04/25/23 Barbie 2 Sensor kit) nitrofurantoin macrocrystal 50 mg 50 mg PO Q24H 90 days #90 caps 09/08/23 capsule estradiol 2 mg (7.5 mcg/24 hour) 1 vag ring vaginal [id number] 11/06/23 vaginal ring (Estring) days #1 ea glipizide 2.5 mg tablet 2.5 mg PO QDAY #90 tabs 11/23/23 glipizide 5 mg tablet 5 mg PO QDAY #90 tabs 11/23/23 Allergies Allergy/AdvReac Type Severity Reaction Status Date / Time ampicillin Allergy Intermediate Nausea Verified 11/16/23 10:59 tramadol Allergy Mild itching Verified 11/16/23 10:59 Review of Systems Status of ROS: Reports: 6 or more systems reviewed and unremarkable except as noted in History and below PFSH PFSH Surgical History History of ERCP ?Z98.890 - Other specified postprocedural states (ICD-10) History of left-sided carotid endarterectomy ?Z98.890 - Other specified postprocedural states (ICD-10) History of kidney removal ?Z90.5 - Acquired absence of kidney (ICD-10) History of hip replacement ?Z96.649 - Presence of unspecified artificial hip joint (ICD-10) Family History Father Coronary artery disease High blood pressure Sister Brain aneurysm Mother Diabetes High blood pressure Brother Diabetes High blood pressure Daughter Thyroid disease Daughter Thyroid cancer Social History Narrative: . 3 children. No formal exercise. Non-smoker. Alcohol rare. No illicit drug use. Smoking Status: Never smoker Do you use any of these nicotine containing products: None Second hand tobacco smoke exposure: No How often do you have a drink containing alcohol: never How often do you have six or more drinks on one occasion: Never AUDIT-C Alcohol total score: 0 Non-prescribed substance use: denies use service: No Exam Narrative: Exam Narrative: Objective: Patient's vital signs look largely unremarkable, or still systolic blood pressures 92, and she has run low in the past. Alert orient x3 Mouth is dry Neck is supple Pulses regular Abdomen is distended mildly diffusely tender, no rebound or peritonitis no palpable masses. Extremities within normal limits Neurologic grossly nonfocal Patient appears cachectic and thin. Const: Vital Signs, click to edit/add: Vital Signs - 24 hr 01/20/24 12:10 01/20/24 12:25 01/20/24 13:24 Temperature 98.5 F Pulse Rate 83 Pulse Rate [Right Pulse Oximeter] 85 Respiratory Rate 18 Blood Pressure 133/66 Blood Pressure [Ri ght Upper Arm] 92/61 Pulse Oximetry 98 97 87 L Oxygen Delivery Me thod Room Air Oxygen Flow Rate 01/20/24 13:25 01/20/24 13:30 01/20/24 13:31 Temperature Pulse Rate 82 76 76 Pulse Rate [Right Pulse Oximeter] Respiratory Rate Blood Pressure 127/64 Blood Pressure [Ri ght Upper Arm] Pulse Oximetry 88 98 98 Oxygen Delivery Me thod Nasal Cannula Nasal Cannula Oxygen Flow Rate 1 1 01/20/24 13:32 01/20/24 13:45 01/20/24 14:01 Temperature Pulse Rate 76 77 76 Pulse Rate [Right Pulse Oximeter] Respiratory Rate Blood Pressure 136/64 Blood Pressure [Ri ght Upper Arm] Pulse Oximetry 98 97 93 Oxygen Delivery Me thod Oxygen Flow Rate 01/20/24 14:02 01/20/24 14:15 01/20/24 14:31 Temperature Pulse Rate 74 75 Pulse Rate [Right Pulse Oximeter] Respiratory Rate Blood Pressure 136/65 Blood Pressure [Ri ght Upper Arm] Pulse Oximetry 92 91 Oxygen Delivery Me thod Oxygen Flow Rate 01/20/24 15:01 Temperature Pulse Rate Pulse Rate [Right Pulse Oximeter] Respiratory Rate Blood Pressure 127/72 Blood Pressure [Ri ght Upper Arm] Pulse Oximetry Oxygen Delivery Me thod Oxygen Flow Rate Course Vital Signs Vital signs: Initial Vital Signs Temperature 98.5 F 01/20/24 12:10 Temperature Source Temporal Artery Scan 01/20/24 12:10 Pulse Rate 85 01/20/24 12:10 Respiratory Rate 18 01/20/24 12:10 Blood Pressure 92/61 01/20/24 12:10 Blood Pressure Mean 71 01/20/24 12:10 Blood Pressure Position Sitting 01/20/24 12:10 Pulse Oximetry 98 01/20/24 12:10 Oxygen Delivery Method Room Air 01/20/24 12:10 Vital Signs Temperature 98.5 F 01/20/24 12:10 Pulse Rate 85 01/20/24 12:10 Respiratory Rate 18 01/20/24 12:10 Blood Pressure 92/61 01/20/24 12:10 Pulse Oximetry 98 01/20/24 12:10 Oxygen Delivery Method Room Air 01/20/24 12:10 Temperature 98.6 F 01/20/24 15:36 Pulse Rate 75 01/20/24 14:15 Respiratory Rate 18 01/20/24 15:36 Blood Pressure 123/60 01/20/24 15:36 Pulse Oximetry 95 01/20/24 15:36 Oxygen Delivery Method Room Air 01/20/24 15:36 Oxygen Flow Rate 1 01/20/24 13:31 Medications Administered Medications: Discontinued Medications Generic Name Dose Route Start Last Admin Trade Name Freq PRN Reason Stop Dose Admin Hydromorphone HCl 0.5 mg 01/20/24 13:13 01/20/24 13:19 Hydromorphone 0.5 Mg/0.5 Ml Inj IVP 01/20/24 13:14 0.5 mg ONCE ONE Administration Sodium Chloride 500 mls @ 500 mls/hr 01/20/24 12:25 01/20/24 14:07 0.9 % Sodium Chloride 500 Ml IV 01/20/24 13:24 Infused .Q1H ONE Infusion Morphine Sulfate 2 mg 01/20/24 12:30 01/20/24 13:09 Morphine 2 Mg/Ml Inj IVP 01/20/24 12:31 Not Given ONCE ONE Medical Decision Making MDM Narrative Medical decision making narrative: 83-year-old female with recent ERCP and common duct stent by family's history at [facility]. She had some type of biopsy done of her pancreas it sounds like it was negative but they were concerned about pancreatic cancer. The patient was thought to maybe have cholangitis last visit, but the family reports that she did not have bacteria growing in her blood. At this point I think it be reasonable to repeat her CT with on and hands to given her kidney removal, will see if there is intra-abdominal pathology, will check her laboratories electrolytes, will give her small dose of morphine and small bolus of normal saline. Disposition pending findings above patient may need transfer back to [facility]. Addendum 3:00 p.m.: The patient feels better after IV Dilaudid IV fluid. I discussed her case with the [facility] therapeutic consultant today and they felt that we could keep her here in our hospital to do NPO status IV fluid basic treatment for pancreatitis. At some point they could follow up again as planned with [facility]. Discussed with Dr. Franklin our hospitalist who kindly will accept in admission. Lab Data Labs: Lab Results 01/20/24 Range/Units 13:00 WBC 6.49 (4.50-11.00) K/uL RBC 3.74 L (4.00-5.20) m/uL Hgb 10.9 L (12.0-16.0) gm/dL Hct 34.2 (33.0-51.0) % MCV 91 (80-100) fL MCH 29 (26-34) pg MCHC 32 (32-36) gm/dL RDW Coeff of Lisbet 13.1 (11.5-15.5) % Plt Count 455 H (140-440) K/uL Neut % (Auto) 70.0 (42.0-72.0) % Lymph % (Auto) 16.3 L (20-44) % [place] % (Auto) 8.9 (0.0-11.0) % Eos % (Auto) 3.5 (0.0-7.0) % Baso % (Auto) 0.8 (0.0-3.0) % Neut # (Auto) 4.54 (1.7-7.0) K/uL Lymph # (Auto) 1.10 (0.90-2.90) K/uL [place] # (Auto) 0.60 (0.00-0.90) K/UL Eos # (Auto) 0.23 (0.00-0.50) K/uL Baso # (Auto) 0.05 (0.00-0.30) K/uL Abs Immat Gran (auto) 0.03 (0.00-0.30) K/uL Imm/Tot Granulo (auto) 0.5 % INR 1.09 (0.91-1.10) APTT 31 (23-33) Seconds Sodium 137 (135-149) mmol/L Potassium 4.1 (3.6-5.1) mmol/L Chloride 103 (96-114) mmol/L Carbon Dioxide 27 (20-32) mmol/L Anion Gap 7 (7-15) mEq/L BUN 13 (7-30) mg/dL Creatinine 0.5 (0.5-1.5) mg/dL Estimated GFR 92 ml/min Glucose 184 H (60-115) mg/dL Calcium 8.7 (8.4-10.6) mg/dL Total Bilirubin 0.8 (0.1-1.5) mg/dL Direct Bilirubin 0.5 (0.0-0.5) mg/dL AST 39 H (12-35) U/L ALT 27 (4-35) U/L Alkaline Phosphatase 134 (40-150) U/L C-Reactive Protein 1.3 H (0.5-1.0) mg/dL Total Protein 6.8 (6.0-8.3) g/dL Albumin 3.6 (3.3-5.0) g/dL Amylase 122 H (18-89) U/L Lipase 498 H (23-300) U/L Discharge Plan Discharge Clinical Impression: Abdominal pain Patient Disposition: Admitted As Observation
--- OUTSIDE RECORDS SUMMARY | 2024-01-20 12:37 | XMS_ITS | Clinical Summary ---
Author Organization [facility] Address [address] [place] [address] Care Team Providers Care Patient Access Associate Name Role Phone Elsewhere, Pcp Primary Care Provider Unavailabl e Source Comments Patient records contain information from all sites at [facility]. For routine questions regarding patient records, call [phone] during business hours, M-F 8:00 AM - 5:00 PM Central Time. Record requests for emergency care only can be directed to [phone] at any time.[facility] Allergies Active Allergy Reactions Criticality Noted [...] 5 mg tablet Take 5 mg by mouth 2 (two) times a day before breakfast and dinner. 10/08/2021 Active flash glucose scanning reader (FreeStyle Barbie 14 Day [place]) by other route. 08/25/2022 Activ e B complex-vitamin (SUPER B-50) capsule Take 1 tablet by mouth daily. 11/02/2023 Active A LIPOIC [id number]-[id number] ERINE ORAL Take 1 capsule by mouth daily. 11/02/2023 Active flash glucose scanning reader (FREESTYLE BARBIE) by other route. 08/25/2022 Active flash glucose sensor (FREESTYLE BARBIE) kit by other route. 04/25/[address] tablet Take 81 mg by mouth daily. Active cholecalciferol, vitamin D3, 25 mcg (1,000 Unit) tablet Take 25 mcg by mouth daily. Active d-mannose (AZO D-Mannose) 500 mg capsule Take 2 capsules by mouth daily. Active sennosides-docus ate sodium (SENOKOT-S) 8.6-50 mg per tablet Take 1 tablet by mouth 2 (two) times a day. 30 tablet 1 12/15/2023 Active OLANZapine (ZyPREXA) 2.5 mg tablet Take 1 tablet (2.5 mg total) by mouth at bedtime. 30 tablet 1 01/14/2024 Active nitrofurantoin (MACRODANTIN) 50 mg capsule Take 50 mg by mouth daily. UTI prevention 01/06/2024 Discontinued (Error) clopidogreL (Plavix) 75 mg tablet Take 1 tablet (75 mg total) by mouth daily for 23 days. 23 tablet 12/15/2023 01/14/2024 Discontinued (Stop Taking at Discharge) Active Problems Problem Noted Date Diagnosed Date Pancreatitis Post Endoscopic Retrograde Cholangiopancreatography 01/06/2024 Delirium 01/06/2024 Hemorrhoids 01/06/2024 Loss Hearing Right 01/06/2024 Loss Weight Abnormal 01/06/2024 Murmur Heart 01/06/2024 Postmenopausal Atrophic Vaginitis 01/06/2024 Sciatica Left 01/06/2024 Solitary Kidney Acquired 01/06/2024 Abnormal Levels Of Other Serum Enzymes Occlusion And Stenosis Left Carotid Artery 01/04 Stricture Biliary 12/13/2023 Cholangitis Acute 12/13/2023 Facial Weakness From Stroke Cerebrovascular Acci dent 01/04/2023 Infarction Cerebral 01/04/2023 Infection Urinary Tract Personal History 023 Presence Of Artificial Hip Joint Bilateral 01/03 Stroke 01/03/2023 Diabetes Mellitus Type 2 Without Complication Cataract Senile Nuclear Sclerosis Right 04/20/20 18 Overview: Added automatically from request for surgery [id number] Cataract Senile Nuclear Sclerosis Left 8 Overview: Added automatically from request for surgery [id number] Hyperlipidemia Mixed 03/17/2016 Osteoarthritis 02/13/2012 Resolved Problems Problem Noted Date Diagnosed Date Resolved Date Stone Common Duct 12/13/2023 12/13/2023 Encounters Date Type Department Care Team Description 01/15/20 24 Home Care Visit [facility] in [address] [phone] Marilyn Funes RRafal TELEPHONE ENCOUNTER 01/12/20 24 Clinical Communication [facility] in [address] [address] Marilyn Funes R.N. Hospice Referral Communication 01/12/20 24 Home Care Visit [facility] in [address] [address] Marilyn Funes RHerbertN. [facility] INTAKE 01/12/20 24 Home Care Visit [facility] in [address] [address] Lianet Holloway RHerbertN. HOSPICE INFO VISIT 01/09/20 24 10:00 AM CDT Ancillary Procedure Department of Radiology in [place], [place] [address] [place] [phone] Nemesio Magana M.D. 01/05/20 24 11:47 PM CDT - 01/14/20 24 10:07 AM CDT Hospital Encounter [facility], [facility], Sixth Floor [address] [place] [address] Ky Carr D.O. Aries Osborne M.B., B.Chir. Pancreatitis Post Endoscopic Retrograde Cholangiopancreatography (HCC) (Primary Dx); Debility [R53.81]; Decline Functional Status [R53.81]; Stricture Biliary (HCC); Dysphagia [R13.10] Discharge Disposition: Home or Self Care 01/05/20 8:55 AM CDT Anesthesia Event Division of Gastroenterology in [place], [place] [address] [place] [address] Alexandre Andersen APRN, CRNA 01/05/20 8:45 AM CDT Ancillary Procedure Department of Gastroenterology 01/05/20 8:42 AM CDT - 01/05/20 11:46 PM CDT Hospital Encounter Department of Radiology, [facility] in [place], [place] [address] [place] [address] Calvin Bailey M.D. Mass Pancreas Discharge Disposition: Home or Self Care 01/05/20 8:40 AM CDT Ancillary Procedure Department of Gastroenterology 01/05/20 7:14 AM CDT - 01/05/20 8:41 AM CDT Hospital Encounter Division of Gastroenterology in [place], [place] [address] [place] [phone] Calvin Bailey M.D. Abu Dayyeh, Barham K, M.D., M.P.H. Alexandre Andersen APRN, TODD Mass Pancreas Discharge Disposition: Home or Self Care 01/05/20 Clinical Communication Division of Gastroenterology in [place], [place] [address] [place] [phone] Amy Vicente M.D. 12/25/19 Clinical Communication Division of Gastroenterology in [place], [place] [address] [place] [phone] Omid Robbins M.D. 12/22/19 Clinical Communication Department of Ophthalmology in [address] [phone] Mauri Farrell M.D. Nurse Assessment (New patient / Dr. Farrell) 12/20/19 9:20 AM CDT - 12/20/19 11:59 PM CDT Hospital Encounter Department of Laboratory Medicine and Pathology, [facility] in [place], [place] [address] [place] [address] Omid Robbins M.D. Abnormal Findings On Diagnostic Imaging Of Other Abdominal Regions Including Retroperitoneum; Stone Common Duct Discharge Disposition: Home or Self Care 12/20/19 24 8:00 AM CDT Comprehensive Visit Division of Gastroenterology in [place], [place] [address] [place] [phone] Audra Doss C.N.P. Chandrasekhar a, Vinay, M.D. Stricture Biliary (HCC) (Primary Dx); Abnormal Findings On Diagnostic Imaging Of Other Abdominal Regions Including Retroperitoneum; Stone Common Duct; Cholangitis Acute (HCC) 12/13/19 24 1:12 PM CDT Anesthesia Event Division of Gastroenterology in [address] [phone] Yolis Bonilla Mary, M.B., B.Ch., B.A.O. 12/13/19 24 1:10 PM CDT Ancillary Procedure Department of Gastroenterology 12/13/19 24 12:41 PM CDT - 12/13/19 24 11:59 PM CDT Hospital Encounter Department of Radiology, [address] [address] Malka Montero M.D., M.H.S. Discharge Disposition: Home or Self Care 12/13/19 24 5:35 AM CDT Ancillary Procedure Department of Radiology in [address] [phone] Vahid Kaplan M.D. 12/13/19 24 4:12 AM CDT - 12/15/19 24 1:09 PM CDT Hospital Encounter [facility], [facility], Fourth Floor [address] [place] [phone] Naun Moore M.B., Ch.B. Vipul Caraballo M.D. Discharge Disposition: Home or Self Care 12/13/19 24 Intake [facility] 12/12/19 24 11:34 AM CDT - 12/12/19 24 11:59 PM CDT Hospital Encounter Department of Radiology, [place], [place] [address] [place] [phone] Calvin Bailey M.D. Mass Pancreas Discharge Disposition: Home or Self Care 12/12/19 24 10:26 AM CDT - 12/12/19 24 11:33 AM CDT Hospital Encounter Department of Laboratory Medicine and Pathology, [facility], in [place], [place] [address] [place] [phone] Calvin Bailey M.D. Mass Pancreas Discharge Disposition: Home or Self Care 12/12/19 24 Clinical Communication Division of Gastroenterology in [place], [place] [address] [place] [phone] Prescheduling , Provider 12/04/19 24 Patient Outreach Department of Oncology in [address] [phone] Dariela Palmer, RRafal 11/30/19 24 9:20 AM CDT Telemedicine Division of Gastroenterology in [place], [place] [address] [place] [phone] Deyanira García, RRafal Mass Pancreas (Primary Dx) 11/29/19 24 10:00 AM CDT Clinical Communication Virtual Review in [place], [place] 200 [place] [address] Pre-visit Intake 11/23/19 24 Clinical Communication Division of Gastroenterology in [address] [phone] Provider, Unknown Pre-visit Intake; [facility] ([facility]/) 11/16/19 24 [facility] [address] [place] [address] Audra Doss, C.N.P. Abnormal Findings On Diagnostic Imaging Of Other Abdominal Regions Including Retroperitoneum (Primary Dx) 11/03/19 24 Clinical Communication Department of Urology in [address] [phone] Alejandra Souza, P.A.-C. Communication from Last 3 Months Family History Medical History Relation Name Comments Hypertension Brother 1 Jessica Hypertension Brother 2 Diabetes Daughter Cecilia Coronary artery disease Father Estevan Diabetes Mother Divina Anesthesia problems Neg Hx Cataracts Neg Hx Glaucoma Neg Hx Macular degeneration Neg Hx Relation Name Status Comments Brother 1 Jessica Brother 2 Daughter Cecilia Father Estevan Mother Divina Social History Tobacco Use Types Packs/Day Years Used Date Smoking Tobacco: Never Smokeless Tobacco: Never Tobacco Cessation:Counseling Given: Not Answered Alcohol Use Standard Drinks/Week Comments No 0 (1 standard drink = 0.6 oz pur e alcohol) [facility] Utilities Answer Date Recorded In the past 12 months has e [employer] [place], gas, oil, or water [employer] threatened to shut off services in your home? No 01/06/2024 Humiliation, Afraid, Rape, and Kick questionnair e Answer Date Recorded Within the last year, have y ou been afraid of your partner or ex-partner? No 01/06/2024 Within the last year, have y ou been humiliated or emotionally abused in other ways by your partner or ex-partner? No Within the last year, have y ou been kicked, hit, slapped, or otherwise physically hurt by your partner or ex-partner? No 01/06/2024 Within the last year, have y ou been raped or forced to have any kind of sexual activity by your partner or ex-partner? No 01/06/2024 Exercise Vital Sign Answer Date Recorde d [...] the money to buy more. Never true 01/06/20 24 Within the past 12 months, t he food you bought just didn't last and you didn't have money to get more. Never true 01/06/2024 PRAPARE - Transportation Answer Date Re corded In the past 12 months, has l ack of transportation kept you from medical appointments or from getting medications? No 12/13 In the past 12 months, has l ack of transportation kept you from meetings, work, or from getting things needed for daily living? No 01/06/2024 Nutrition Answer Date Recorded On average, how [...] your living situation today? I have a [facility] place to live 01/06/2024 Sex and Gender Information Value Date Recorded Sex Assigned at Female 11/29/2023 7:47 PM CDT Gender Identity Female 11/29/2023 7:47 PM CDT Sexual Orientation Straight 11/29/2023 7: 47 PM CDT Last Filed Vital Signs Vital Sign Reading Time Taken Comments Blood Pressure 146/55 01/14/2024 8:00 AM CDT Pulse 77 01/14/2024 8:00 AM CDT Temperature 37 ??C (98.6 ??F) 01/14/2024 8:00 AM CDT Respiratory Rate 18 01/14/2024 8:00 AM CDT Oxygen Saturation 93% 01/14/2024 6:00 AM CDT Inhaled Oxygen Concentration - - Weight 56.1 kg (123 lb 10.9 oz) 01/07/2024 5:00 AM CDT Height 162.6 cm (5' 4) 01/06/2024 4:00 AM CDT Body Mass Index 21.23 01/06/2024 4:00 AM CDT Plan of Treatment Upcoming Encounters Date Type Department Care Team (Latest Contact Info) Description 02/19/2024 9:30 AM CDT Comprehensive Visit Department of Ophthalmology in [address] [phone] Alan Araujo Jr., M.D. [address] [place] [address] Discharge Disposition: Home or Self Care Health Maintenance Due Date Last Done Comments Pneumococcal vaccine (65+ years) (1 of 2 - PCV) 1945 DTaP,Tdap,and Td Vaccines (1 - Tdap) 1957 Zoster Vaccines (1 of 2) 1988 Hepatitis B Vaccines (1 of 3 - Risk 3-dose series) 11/1997 COVID-19 Vaccine ( season) 2023 Influenza Vaccine (#1) 2023 Fall Risk Screen (Annual) Completed 01/05/2024 Medical Devices Implanted Type Area Tank Charger Device Identifier Shelf Expiration Date Model / Serial / Lot Hip Implant Hip Implant Bilater al: Hip Lens Tcn [id number] +25.0d - [id number] - [id number] Implanted:Qty : 1 on 06/04/2018 by Mauri Farrell M.D. at [facility] Ocular Lens [employer] (Previously ALONDRA) [id number] / [id number] / Lens Tcn [id number] Ant +26.0d - [id number] - [id number] Implanted:Qty : 1 on 06/13/2018 by Mauri Farrell M.D. at [facility] Ocular Lens Left: Eye [employer] (Previously ALONDRA) [id number] 12/07/2021 [id number] / [id number] / Explanted Type Area Tank Charger Device Identifier Shelf Expiration Date Model / Serial / Lot Stnt Ctt Otw 8.5f 9 - [id number] Implanted:Qty: 1 on 12/13/2023 by Matias Moss M.D., M.S. at [facility] Explanted:Qty: 1 on 01/05/2024 by Leandra Fu M.D., M.P.H. at [facility] Biliary Stent [employer] 06/28/2026 [id number] / / [id number] Procedures Procedure Name Priority Date/Time Associated Diagnosis Comments GLUCOSE POCT, B Routine 01/14/2024 7:56 AM CDT GLUCOSE POCT, B Routine 01/13/2024 9:25 PM CDT GLUCOSE POCT, B Routine 01/13/2024 5:33 PM CDT GLUCOSE POCT, B Routine 01/13/2024 12:32 PM CDT GLUCOSE POCT, B Routine 01/13/2024 8:51 AM CDT MAGNESIUM, S Routine 01/13/2024 5:15 AM CDT RENAL FUNCTION PANEL, S Routine 01/13/2024 5:15 AM CDT CBC WITHOUT DIFFERENTIAL, B Routine 01/13/2024 5:14 AM CDT GLUCOSE POCT, B Routine 01/12/2024 9:46 PM CDT GLUCOSE POCT, B Routine 01/12/2024 4:20 PM CDT GLUCOSE POCT, B Routine 01/12/2024 12:00 PM CDT GLUCOSE POCT, B Routine 01/12/2024 7:43 AM CDT RENAL FUNCTION PANEL, S Routine 01/12/2024 7:23 AM CDT CBC WITHOUT DIFFERENTIAL, B Routine 01/12/2024 7:23 AM CDT GLUCOSE POCT, B Routine 01/11/2024 9:20 PM CDT MICROSCOPIC MANUAL Routine 01/11/2024 7: 52 PM CDT DIPSTICK, U Routine 01/11/2024 7:52 PM CDT PH, U Routine 01/11/2024 7:52 PM CDT OSMOLALITY, U Routine 01/11/2024 7:52 PM CDT URINALYSIS WITH MICROSCOPIC Routine 01/11/2024 7:52 PM CDT GLUCOSE POCT, B Routine 01/11/2024 5:22 PM CDT GLUCOSE POCT, B Routine 01/11/2024 12:19 PM CDT GLUCOSE POCT, B Routine 01/11/2024 9:07 AM CDT MAGNESIUM, S Routine 01/11/2024 4:39 AM CDT RENAL FUNCTION PANEL, S Routine 01/11/2024 4:39 AM CDT CBC WITHOUT DIFFERENTIAL, B Routine 01/11/2024 4:39 AM CDT GLUCOSE POCT, B Routine 01/10/2024 9:22 PM CDT GLUCOSE POCT, B Routine 01/10/2024 5:[address] ABDOMEN PELVIS WITH IV CONTRAST RAD - Routine (most inpatients and all outpatients) 01/10/2024 12:51 PM CDT GLUCOSE POCT, B Routine 01/10/2024 12:11 PM CDT GLUCOSE POCT, B Routine 01/10/2024 8:06 AM CDT RENAL FUNCTION PANEL, S Routine 01/10/2024 4:15 AM CDT CBC WITHOUT DIFFERENTIAL, B Routine 01/10/2024 4:15 AM CDT HEPATIC FUNCTION PANEL, S Routine 01/10/2024 4:10 AM CDT GLUCOSE POCT, B Routine 01/09/2024 8:38 PM CDT GLUCOSE POCT, B Routine 01/09/2024 5:27 PM CDT GLUCOSE POCT, B Routine 01/09/2024 1:29 PM CDT INTERPRETATION OF OUTSIDE CT CHEST RAD - Routine (most inpatients and all outpatients) 01/09/2024 10:01 AM CDT GLUCOSE POCT, B Routine 01/09/2024 9:09 AM CDT CHLORIDE, RANDOM, U Routine 01/09/2024 8 :24 AM CDT UREA, RANDOM, U Routine 01/09/2024 8:24 AM CDT CREATININE, RANDOM, U Routine 01/09/2024 8:24 AM CDT SODIUM, RANDOM, U Routine 01/09/2024 8:2 4 AM CDT OSMOLALITY, U Routine 01/09/2024 8:24 AM CDT MAGNESIUM, S Routine 01/09/2024 4:09 AM CDT OSMOLALITY, S Routine 01/09/2024 4:09 AM CDT CBC WITHOUT DIFFERENTIAL, B Routine 01/09/2024 4:09 AM CDT RENAL FUNCTION PANEL, S Routine 01/09/2024 4:09 AM CDT GLUCOSE POCT, B Routine 01/08/2024 10:26 PM CDT GLUCOSE POCT, B Routine 01/08/2024 6:01 PM CDT GLUCOSE POCT, B Routine 01/08/2024 1:07 PM CDT COMPREHENSIVE METABOLIC PANEL, S/P STAT 01/08/2024 9:43 AM CDT CBC WITH DIFFERENTIAL, B STAT 01/08/2024 9:43 AM CDT GLUCOSE POCT, B Routine 01/08/2024 8:50 AM CDT DX ABDOMEN 1 VIEW RAD - Routine (most inpatients and all outpatients) 01/08/2024 8:26 AM CDT GLUCOSE POCT, B Routine 01/07/2024 8:17 PM CDT GLUCOSE POCT, B Routine 01/07/2024 6:36 PM CDT GLUCOSE POCT, B Routine 01/07/2024 12:08 PM CDT GLUCOSE POCT, B Routine 01/07/2024 9:10 AM CDT GLUCOSE POCT, B Routine 01/06/2024 9:21 PM CDT GLUCOSE POCT, B Routine 01/06/2024 5:27 PM CDT GLUCOSE POCT, B Routine 01/06/2024 3:11 PM CDT GLUCOSE POCT, B Routine 01/06/2024 7:50 AM CDT COMPREHENSIVE METABOLIC PANEL, S/P Timed 01/06/2024 6:31 AM CDT CBC WITH DIFFERENTIAL, B Timed 01/06/2024 6:31 AM CDT GLUCOSE POCT, B Routine 01/06/2024 4:52 AM CDT ECG STAT 01/06/2024 2:[address] ABDOMEN PELVIS WITH IV CONTRAST RAD - Semiurgent (Fast; most ED patients; some inpatients) 01/06/2024 1:40 AM CDT HC URINALYSIS AUTO WO MICRO Routine 01/06/2024 12:49 AM CDT DIPSTICK, U STAT 01/06/2024 12:29 AM CDT HC OSMOLALITY ASSAY URINE STAT 01/06/2024 12:29 AM CDT PH, RANDOM, U STAT 01/06/2024 12:29 AM CDT MICROSCOPIC MANUAL STAT 01/06/2024 12:29 AM CDT URINALYSIS WITH MICROSCOPIC STAT 01/06/2024 12:29 AM CDT BACTERIAL CULTURE, AEROBIC + SUSC, URINE STAT 01/06/2024 12:29 AM CDT PROTHROMBIN TIME (PT), P STAT 01/06/2024 12:28 AM CDT LACTATE, B/P STAT 01/05/2024 11:23 PM CDT CBC WITH DIFFERENTIAL, B STAT 01/05/2024 11:23 PM CDT LIPASE, S/P STAT 01/05/2024 11:23 PM CDT HEPATIC FUNCTION PANEL, S STAT 01/05/2024 11:23 PM CDT BASIC METABOLIC PANEL, S/P STAT 01/05/2024 11:23 PM CDT FL FLUORO LESS THAN 1 HOUR RAD - Routine (most inpatients and all outpatients) 01/05/2024 10:19 AM CDT Mass Pancreas CYTOLOGY FINE NEEDLE ASPIRATION (INCLUDES CORE BIOPSIES Routine 01/05/2024 9:45 AM CDT LDA ANE ENDOTRACHEAL AIRWAY Routine 01/05/2024 9:04 AM CDT GLUCOSE POCT, B Routine 01/05/2024 8:51 AM CDT GASTROENTEROLOGY IMAGE EXAM Routine 01/05/2024 8:45 AM CDT GASTROENTEROLOGY IMAGE EXAM Routine 01/05/2024 8:40 AM CDT ERCP Routine 01/05/2024 8:37 AM CDT Mass Pancreas ERCP Routine 01/05/2024 8:37 AM CDT Mass Pancreas UPPER EUS Routine 01/05/2024 8:37 AM CDT Mass Pancreas ENDOSCOPIC ULTRASOUND (EUS) Routine 01/05/2024 8:37 AM CDT Mass Pancreas PREALBUMIN (PAB), S Routine 12/20/2023 9 :56 AM CDT Abnormal Findings On Diagnostic Imaging Of Other Abdominal Regions Including Retroperitoneum Stone Common Duct CFDNA KRAS 12, 13, 61, 146 BLOOD Routine 12/20/2023 9:56 AM CDT Abnormal Findings On Diagnostic Imaging Of Other Abdominal Regions Including Retroperitoneum Stone Common Duct CARBOHYDRATE AG 19-9 (CA 19-9), S Routine 12/20/2023 9:56 AM CDT Abnormal Findings On Diagnostic Imaging Of Other Abdominal Regions Including Retroperitoneum Stone Common Duct BASIC METABOLIC PANEL, S/P Routine 12/20/2023 9:56 AM CDT Abnormal Findings On Diagnostic Imaging Of Other Abdominal Regions Including Retroperitoneum Stone Common Duct HEPATIC FUNCTION PANEL, S Routine 12/20/2023 9:56 AM CDT Abnormal Findings On Diagnostic Imaging Of Other Abdominal Regions Including Retroperitoneum Stone Common Duct GLUCOSE POCT, B Routine 12/15/2023 11:46 AM [...] and all outpatients) 12/13/2023 2:05 PM CDT BILIARY TRACT MALIGNANCY-CYTOLOGY, FISH Routine 12/13/2023 1:40 PM CDT OR MORPH INSITU MAN EA MULTIPLEX A1 Routine 12/13/2023 1:40 PM CDT LDA ANE ENDOTRACHEAL AIRWAY Routine [...] Routine 12/12/2023 10:43 AM CDT Mass Pancreas CFDNA KRAS 12, 13, 61, 146 BLOOD Routine 12/12/2023 10:43 AM CDT Mass Pancreas CARBOHYDRATE AG 19-9 (CA 19-9), S Routine 12/12/2023 10:43 AM CDT Mass Pancreas BILIRUBIN DIRECT, S/P Routine 12/12/2023 10:43 AM CDT Mass Pancreas COMPREHENSIVE METABOLIC PANEL, S/P Routine 12/12/2023 10:43 AM CDT Mass Pancreas CBC WITH DIFFERENTIAL, B Routine 12/12/2023 10:43 AM CDT Mass Pancreas OUTSIDE CT BODY Routine 11/13/2023 11:20 AM CDT from Last 3 Months Results * (ABNORMAL) Glucose, POCT (01/14/2024 7:56 AM CDT) Only the most recent of48 resultswithin the time period is included. Glucose, POCT, B 210(H) 70 - 140 mg/dL 01/14/2024 7:58 AM CDT PCLX Site Capillary 01/14/2024 7:58 AM CDT PCLX Last Intake 3-4 hours 01/14/2024 7:58 AM CDT PCLX Blood 01/14/2024 7:56 AM CDT 01/14/2024 7:58 AM CDT Unknown Provider LAB POCT ORDERABLES- MANUAL POC [facility] [address] [place] [address], [facility] PCLX [facility] POC [address] [place] [address] * (ABNORMAL) Renal Function Panel (01/13/2024 5:15 AM CDT) Only the most recent of5 resultswithin the time period is included. Potassium, S 4.0 3.6 - 5.2 mmol/L 01/13/2024 6:29 AM CDT DTL Sodium, S 129(L) 135 - 145 mmol/L 01/13/2024 6:29 AM CDT DTL Chloride, S 96(L) 98 - 107 mmol/L 01/13/2024 6:29 AM CDT DTL Bicarbonate, S 25 22 - 29 mmol/L 01/13/2024 6:29 AM CDT DTL Anion Gap 8 7 - 15 01/13/2024 6:29 AM CDT DTL BUN (Blood Urea Nitrogen), S 10 6 - 21 mg/dL 01/13/2024 6:29 AM CDT DTL Creatinine 0.60 0.59 - 1.04 mg/dL 01/13/2024 6:29 AM CDT DTL Estimated GFR (eGFR) 88 >=60 mL/min/BSA 01/13/2024 6:29 AM CDT DTL Comment: Estimated GFR calculated using the 2020 CKD_EPI creatinine equation. Calcium, Total, S 8.0(L) 8.8 - 10.2 mg/dL 01/13/2024 6:29 AM CDT DTL Glucose, S 229(H) 70 - 140 mg/dL 01/13/2024 6:29 AM CDT DTL Albumin, S 2.8(L) 3.5 - 5.0 g/dL 01/13/2024 6:29 AM CDT DTL Phosphorus (Inorganic), S 2.8 2.5 - 4.5 mg/dL 01/13/2024 6:29 AM CDT DTL Blood (Blood, Venous) 01/13/2024 5:15 AM CDT 01/13/2024 6:09 AM CDT Bhumika Joy M.D. LAB BLOOD ADD-ON [facility]ATOR[facility] [address] [place] [address], [facility] [address] [place] [address] * Magnesium (01/13/2024 5:15 AM CDT) Only the most recent of4 resultswithin the time period is included. Magnesium, S 1.9 1.7 - 2.3 mg/dL 01/13/2024 6:29 AM CDT DTL Blood (Blood, Venous) 01/13/2024 5:15 AM CDT 01/13/2024 6:09 AM CDT Bhumika Joy M.D. LAB BLOOD ADD-ON [facility] [address] [place] [address], [facility] [address] [place] [address] * (ABNORMAL) CBC without Differential (01/13/2024 5:14 AM CDT) Only the most recent of5 resultswithin the time period is included. Pathologist [facility] Hemoglobin 9.5(L) 11.6 - 15.0 g/dL 01/13/2024 5:59 AM CDT DTL Hematocrit 28.1(L) 35.5 - 44.9 % 01/13/2024 5:59 AM CDT DTL Erythrocytes 3.19(L) 3.92 - 5.13 x10(12)/L 01/13/2024 5:59 AM CDT DTL MCV 88.1 78.2 - 97.9 fL 01/13/2024 5:59 AM CDT DTL RBC Distrib Width 13.0 12.2 - 16.1 % 01/13/2024 5:59 AM CDT DTL Platelet Count 269 157 - 371 x10(9)/L 01/13/2024 5:59 AM CDT DTL Leukocytes 12.7(H) 3.4 - 9.6 x10(9)/L 01/13/2024 5:59 AM CDT DTL Blood (Blood, Venous) 01/13/2024 5:14 AM CDT 01/13/2024 5:51 AM CDT Bhumika Joy M.D. LAB BLOOD ADD-ON [facility] [address] [place] [address], [facility] [address] [place] [address] * (ABNORMAL) Dipstick, Urine (01/11/2024 7:52 PM CDT) Only the most recent of3 resultswithin the time period is included. Pathologist [facility] Hemoglobin, QL, U Trace(A) Negative 01/11/2024 8:44 PM CDT DTL Leukocyte Esterase, U Large(A) Negative 01/11/2024 8:44 PM CDT DTL Nitrite, U Negative Negative 01/11/2024 8:44 PM CDT DTL Ketone, U 5(A) Negative mg/dL 01/11/2024 8:44 PM CDT DTL Glucose, U 70(A) Negative mg/dL 01/11/2024 8:44 PM CDT DTL Urine 01/11/2024 7:52 PM CDT 01/11/2024 8:27 PM CDT Ulysses Herrera M.D. LAB URINE ORDERABLES [facility] [address] [place] [address], [facility] [place] [address] [place] [address] * (ABNORMAL) Microscopic Manual (01/11/2024 7:52 PM CDT) Only the most recent of3 resultswithin the time period is included. Microscopy Abnormal 01/11/2024 9:18 PM CDT DTL RBC 3-10(A) <3 /hpf 01/11/2024 9:18 PM CDT DTL Dysmorphic RBC <25 <25 % 01/11/2024 9:18 PM CDT DTL WBC 31-40(A) /hpf 01/11/2024 9:18 PM CDT DTL Comment: ----REFERENCE VALUE---- <4 ??(Males) <11 (Females) Squamous Epithelial Cells, U 1-3 /hpf 01/11/2024 9:18 PM CDT DTL Bacteria Present(A) 01/11/2024 9:18 PM CDT DTL Crystals Calcium Oxalate crystals present 01/11/2024 9:18 PM CDT DTL Urine 01/11/2024 7:52 PM CDT 01/11/2024 8:44 PM CDT Ulysses Herrera M.D. LAB URINE ORDERABLES Performing Organization Address City/[facility] Co de Phone Number [facility] [address] [place] [address], [facility] 200 [place] [address] * pH, Urine (01/11/2024 7:52 PM CDT) Only the most recent of2 resultswithin the time period is included. pH, U 6.5 4.5 - 8.0 01/11/2024 9:0 1 PM CDT DT Urine 01/11/2024 7:52 PM CDT 01/11/2024 8:27 PM CDT Ulysses Herrera M.D. LAB URINE ORDERABLES Performing Organization Address [facility] Co de Phone Number [facility] 200 [place] [address] * Osmolality, Urine (01/11/2024 7:52 PM CDT) Only the most recent of3 resultswithin the time period is included. Osmolality, U 473 150 - 1150 mOsm/kg 01/11/2024 9:01 PM CDT DT Urine 01/11/2024 7:52 PM CDT 01/11/2024 8:27 PM CDT Ulysses Herrera M.D. LAB URINE ORDERABLES Performing Organization Address City/[facility] Co de Phone Number [facility] [address] [place] [address] * (ABNORMAL) Urinalysis, with Microscopic: Urine, Midstream (01/11/2024 7:52 PM CDT) Only the most recent of3 resultswithin the time period is included. Source Urine, Urine, Midstream 01/11/2024 8:27 PM CDT DTL Color, U Yellow 01/11/2024 8:27 PM CDT DTL Clarity, U Clear 01/11/2024 8:27 PM CDT DTL Protein, U 95(H) <26 mg/dL 01/11/2024 9:02 PM CDT DTL Protein/Osmol ality 2.01(H) <0.42 ratio 01/11/2024 9:02 PM CDT DTL Predicted 24 HR Protein, U 1260(H) <229 mg/24 h 01/11/2024 9:02 PM CDT DTL Predicted Range 311-5102 mg/24 h 01/11/2024 9:02 PM CDT DTL Urine (Urine, Midstream) 01/11/2024 7:52 PM CDT 01/11/2024 8:27 PM CDT Ulysses Herrera M.D. LAB URINE ORDERABLES [facility] [address] [place] [address], [facility] [address] [place] [address] * CT Abdomen Pelvis with IV Contrast (01/10/2024 12:51 PM CDT) Only the most recent of2 resultswithin the time period is included. Anatomical Region Laterality Modality Abdomen, Pelvis, Abdominal R ST LOS, Abdominal ARZ LOS, Abdominal FLA LOS N/A Computed Tomograp hy, Computed Tomography 01/10/2024 12:4 4 PM CDT Impressions 01/10/2024 2:09 PM CDT 1. Pancreatitis, particularly edematous in the pancreatic head. Surrounding inflammatory changes without focal fluid collection affecting the wall thickening of the duodenum. 2. Common bile duct stent with intrahepatic and extrahepatic biliary ductal dilatation and biliary gas, as expected. Narrative 01/10/2024 2:09 PM CDT EXAM: ??CT ABDOMEN PELVIS WITH IV CONTRAST COMPARISON: ??01/06/2024. FINDINGS: ??Interval development of small pleural effusions with dependent atelectasis bilaterally. Aortic and coronary calcification. Normal heart size. Trace pericardial fluid. Atelectasis in the dependent portion of the lower lobes bilaterally. There is a stent in the common bile duct with moderate intrahepatic and extrahepatic biliary ductal dilatation as well as biliary gas. The liver parenchyma is within normal limits. The patient is status post cholecystectomy. Interstitial edema within the pancreatic head. Atrophy of the pancreatic body and pancreatic tail. There is also edema in the second and third portion of the duodenum with thickening of the wall and surrounding fluid. There is an air-fluid level within the stomach. Relative collapse of the bowel without abnormal distention. Moderate free fluid in the pelvis. Atherosclerotic calcification of the intraabdominal aorta with ectasia, but no aneurysmal dilatation. Bilateral hip replacement. Moderate degenerative changes of the spine. Procedure Note Tarsha Oneill M.D. - 01/10/2024 EXAM: CT ABDOMEN PELVIS WITH IV CONTRAST COMPARISON: 01/06/2024. FINDINGS: Interval development of small pleural effusions with dependentatelectasis bilaterally. Aortic and coronary calcification. Normal heartsize. Trace pericardial fluid. Atelectasis in the dependent portion of thelower lobes bilaterally. There is a stent in the common bile duct with moderate intrahepatic andextrahepatic biliary ductal dilatation as well as biliary gas. The liverparenchyma is within normal limits. The patient is status postcholecystectomy. Interstitial edema within the pancreatic head. Atrophy of the pancreatic body and pancreatic tail.There is also edema in the second and third portion of the duodenum withthickening of the wall and surrounding fluid. There is an air-fluid levelwithin the stomach. Relative collapse of the bowel without abnormal distention. Moderate freefluid in the pelvis. Atherosclerotic calcification of the intraabdominalaorta with ectasia, but no aneurysmal dilatation. Bilateral hipreplacement. Moderate degenerative changes of the spine. IMPRESSION: 1. Pancreatitis, particularly edematous in the pancreatic head.Surrounding inflammatory changes without focal fluid collection affectingthe wall thickening of the duodenum. 2. Common bile duct stent with intrahepatic and extrahepatic biliaryductal dilatation and biliary gas, as expected. Bhumika Joy M.D. IMJayne CT PROCEDURES * (ABNORMAL) Hepatic Function Panel (01/10/2024 4:10 AM CDT) Only the most recent of5 resultswithin the time period is included. Bilirubin, Total, S 0.7 0.0 - 1.2 mg/dL 01/10/2024 7:42 AM CDT DTL Bilirubin, Direct, S 0.3 0.0 - 0.3 mg/dL 01/10/2024 7:42 AM CDT DTL Aspartate Aminotransferase (AST), S 27 8 - 43 U/L 01/10/2024 7:42 AM CDT DTL Alanine Aminotransferase (ALT), S 21 7 - 45 U/L 01/10/2024 7:42 AM CDT DTL Alkaline Phosphatase, S 106(H) 35 - 104 U/L 01/10/2024 7:42 AM CDT DTL Albumin, S 3.1(L) 3.5 - 5.0 g/dL 01/10/2024 7:42 AM CDT DTL Protein, Total, S 5.7(L) 6.3 - 7.9 g/dL 01/10/2024 7:42 AM CDT DTL Blood (Blood, Venous) 01/10/2024 4:10 AM CDT 01/10/2024 7:16 AM CDT Bhumika Joy M.D. LAB BLOOD ADD-ON [facility] [address] [address], [facility] DTMel[facility] [place] [address] * Interpretation of Outside CT Chest (01/09/2024 10:01 AM CDT) Anatomical Region Laterality Modality Chest, Thoracic RST LOS, Tho racic ARZ LOS, Thoracic FLA LOS, Other, Body N/A Computed Tomography Impressions 01/09/2024 12:02 PM CDT No concerning pathology in the chest Narrative 01/09/2024 12:02 PM CDT EXAM: Interpretation of outside CT of the chest with intravenous contrast 12/12/2023 . COMPARISON: 11/13/2023 FINDINGS: Calcified granuloma right upper lobe. Small esophageal hiatal hernia. Coronary calcifications. Procedure Note Schuyler Raymundo M.D. - 01/09/2024 EXAM: Interpretation of outside CT of the chest with intravenous contrast12/12/2023 . COMPARISON: 11/13/2023 FINDINGS: Calcified granuloma right upper lobe. Small esophageal hiatal hernia.Coronary calcifications. IMPRESSION: No concerning pathology in the chest Nemesio Paul M.D. IMG CT OR OCEDURES * Urea, Random, Urine (01/09/2024 8:24 AM CDT) Urea, Random, U 1115 mg/dL 10:11 AM CDT DTL Comment: ----REFERENCE VALUE---- Random urine urea may be interpreted in conjunction with serum urea, using both values to calculate fractional excretion of urea. Urine (Urine, Midstream) 01/09/2024 8:24 AM CDT 01/09/2024 8:56 AM CDT Bhumika Joy M.D. LAB URINE ORDERAB LES Performing Organization Address City/[facility]/ZIP Co de Phone Number [facility] [address] [place] [address], [facility] 200 [place] [address] * Sodium, Random, Urine (01/09/2024 8:24 AM CDT) Sodium, Random, U 134 mmol/L 01/09/2024 9:42 AM CDT DTL Comment: ----REFERENCE VALUE---- Random urine sodium may be interpreted in conjunction with serum sodium, using both values to calculate fractional excretion of sodium. Urine (Urine, Midstream) 01/09/2024 8:24 AM CDT 01/09/2024 8:56 AM CDT Bhumika Joy M.D. LAB URINE ORDERAB LES Performing Organization Address City/[facility]/ZIP Co de Phone Number [facility] [address] [place] [address], [facility] [address] [place] [address] * Creatinine, Random, Urine (01/09/2024 8:24 AM CDT) Creatinine, Random, U 43 16 - 326 mg/dL 01/09/2024 9:42 AM CDT DTL Urine (Urine, Midstream) 01/09/2024 8:24 AM CDT 01/09/2024 8:56 AM CDT Bhumika Joy M.D. LAB URINE ORDERAB LES Performing Organization Address City/[facility] Co de Phone Number [facility] [address] [place], [place] [id number] [place] [address] 200 [place] [address] * Chloride, Random, Urine (01/09/2024 8:24 AM CDT) Chloride, Random, U 138 mmol/L 01/09/2024 9:42 AM CDT DT Comment: ----REFERENCE VALUE---- Random urine chloride may be interpreted in conjunction with serum chloride, using both values to calculate fractional excretion of chloride. Urine (Urine, Midstream) 01/09/2024 8:24 AM CDT 01/09/2024 8:56 AM CDT Bhumika Joy M.D. LAB URINE ORDERAB LES Performing Organization Address City/[facility]/ZIP Co de Phone Number [facility] [address] [place], [place] [address] [address] [place] [address] * (ABNORMAL) Osmolality (01/09/2024 4:09 AM CDT) Osmolality, S 274(L) 275 - 295 mOsm/kg 01/09/2024 5:57 AM CDT DTL Blood (Blood, Venous) 01/09/2024 4:09 AM CDT 01/09/2024 5:06 AM CDT Bhumika Joy M.D. LAB BLOOD ADD-ON [facility] - [facility] [address] [place] [address], [place] DTL [facility] [address] [place] [address] * (ABNORMAL) CBC with Differential, Blood (01/08/2024 9:43 AM CDT) Only the most recent of6 resultswithin the time period is included. Hemoglobin 10.8(L) 11.6 - 15.0 g/dL 01/08/2024 9:49 AM CDT STMA Hematocrit 32.5(L) 35.5 - 44.9 % 01/08/2024 9:49 AM CDT STMA Erythrocytes 3.64(L) 3.92 - 5.13 x10(12)/L 01/08/2024 9:49 AM CDT STMA MCV 89.3 78.2 - 97.9 fL 01/08/2024 9:49 AM CDT STMA RBC Distrib Width 13.1 12.2 - 16.1 % 01/08/2024 9:49 AM CDT STMA Platelet Count 261 157 - 371 x10(9)/L 01/08/2024 9:49 AM CDT STMA Leukocytes 21.5(H) 3.4 - 9.6 x10(9)/L 01/08/2024 9:49 AM CDT STMA Neutrophils 19.18(H) 1.56 - 6.45 x10(9)/L 01/08/2024 9:49 AM CDT DHPM Lymphocytes 0.97 0.95 - 3.07 x10(9)/L 01/08/2024 9:49 AM CDT STMA Monocytes 1.30(H) 0.26 - 0.81 x10(9)/L 01/08/2024 9:49 AM CDT STMA Eosinophils <0.03 0.03 - 0.48 x10(9)/L 01/08/2024 9:49 AM CDT STMA Basophils 0.04 0.01 - 0.08 x10(9)/L 01/08/2024 9:49 AM CDT STMA Blood (Blood, Venous) 01/08/2024 9:43 AM CDT 01/08/2024 9:47 AM CDT Librado Rascon Jr., M.D., M.B.A. LAB BLO OD ADD-ON [facility] [address] [place] [address], [facility] [address] [place] [address] [facility] [address] [place] [address] * (ABNORMAL) Comprehensive Metabolic Panel (01/08/2024 9:43 AM CDT) Only the most recent of3 resultswithin the time period is included. Potassium, S 3.2(L) 3.6 - 5.2 mmol/L 01/08/2024 11:21 AM CDT DTL Sodium, S 127(L) 135 - 145 mmol/L 01/08/2024 11:21 AM CDT DTL Chloride, S 93(L) 98 - 107 mmol/L 01/08/2024 11:21 AM CDT DTL Bicarbonate, S 22 22 - 29 mmol/L 01/08/2024 11:21 AM CDT DTL Anion Gap 12 7 - 15 01/08/2024 11:21 AM CDT DTL BUN (Blood Urea Nitrogen), S 17 6 - 21 mg/dL 01/08/2024 11:21 AM CDT DTL Creatinine 0.51(L) 0.59 - 1.04 mg/dL 01/08/2024 11:21 AM CDT DTL Estimated GFR (eGFR) >90 >=60 mL/min/BS A 01/08/2024 11:21 AM CDT DTL Comment: Estimated GFR calculated using the 2020 CKD_EPI creatinine equation. Calcium, Total, S 8.3(L) 8.8 - 10.2 mg/dL 01/08/2024 11:21 AM CDT DTL Glucose, S 270(H) 70 - 140 mg/dL 01/08/2024 11:21 AM CDT DTL Protein, Total, S 5.8(L) 6.3 - 7.9 g/dL 01/08/2024 11:21 AM CDT DTL Albumin, S 3.1(L) 3.5 - 5.0 g/dL 01/08/2024 11:21 AM CDT DTL Aspartate Aminotransferase (AST), S 26 8 - 43 U/L 01/08/2024 11:21 AM CDT DTL Alkaline Phosphatase, S 97 35 - 104 U/L 01/08/2024 11:21 AM CDT DTL Alanine Aminotransferase (ALT), S 17 7 - 45 U/L 01/08/2024 11:21 AM CDT DTL Bilirubin, Total, S 0.9 0.0 - 1.2 mg/dL 01/08/2024 11:21 AM CDT DTL Blood (Blood, Venous) 01/08/2024 9:43 AM CDT 01/08/2024 11:02 AM CDT Librado Rascon Jr., M.D., M.B.A. LAB BLO OD ADD-ON [address] [address], [facility] [address] [place] [address] * DX Abdomen 1 View (01/08/2024 8:26 AM CDT) Anatomical Region Laterality Modality Abdomen, Abdominal RST LOS, Abdominal ARZ LOS, Abdominal FLA LOS N/A Digital Radiography Impressions 01/08/2024 8:45 AM CDT Normal bowel gas pattern. No radiographic evidence of obstruction or excessive stool burden. Biliary stent right upper quadrant. Bilateral hip arthroplasties. Narrative 01/08/2024 8:45 AM CDT EXAM: ??DX ABDOMEN 1 VIEW Procedure Note Jone Morales M.D. - 01/08/2024 EXAM: DX ABDOMEN 1 VIEW IMPRESSION: Normal bowel gas pattern. No radiographic evidence of obstruction orexcessive stool burden. Biliary stent right upper quadrant. Bilateral hiparthroplasties. Bhumika Joy M.D. IMG DIAGNOSTIC IM AGING PROCEDURES * ECG 12 Lead (01/06/2024 2:39 AM CDT) Ventricular Rate ECG/Min 83 BPM MUSE OR Interval 158 ms MUSE QRSD Interval 84 ms MUSE QT Interval 384 ms MUSE QTC Interval 451 ms MUSE P [place] 69 degrees MUSE R [place] 62 degrees MUSE T Wave [place] 75 degrees MUSE 01/06/2024 2:39 AM CDT 01/06/2024 2:41 AM CDT Impressions MUSE - 01/06/2024 2:41 AM CDT Normal sinus rhythm Normal ECG No previous ECGs available Reviewed by NELSON Lanza Narrative Procedure Note Braulio Roca M.D. - 01/06/2024 IMPRESSION: Normal sinus rhythm Normal ECG No previous ECGs available Reviewed by NELSON Lanza Ashley Mcgraw M.D. ECG ORDERABLES MUSE NA * (ABNORMAL) Dipstick, POCT, Urine (01/06/2024 12:49 AM CDT) Glucose, POCT, U 500(A) Negative mg/dL 01/06/2024 12:51 AM CDT PCED Ketone, POCT, U Trace(A) Negative mg/dL 01/06/2024 12:51 AM CDT PCED Specific [place], POCT, U 1.025 1.005 - 1.030 01/06/2024 12:51 AM CDT PCED Blood, POCT, U Trace(A) Negative 01/06/2024 12:51 AM CDT PCED pH, POCT, Urine 6.0 5.0 - 8.0 01/06/2024 12:51 AM CDT PCED Protein, POCT, U 100(A) Negative mg/dL 01/06/2024 12:51 AM CDT PCED Nitrites, POCT, U Negative Negative 01/06/2024 12:51 AM CDT PCED Leukocytes, POCT, U Negative Negative 01/06/2024 12:51 AM CDT PCED Urine 01/06/2024 12:4 9 AM CDT 01/06/2024 12:51 AM CDT Unknown Provider LAB POCT ORDERABLES - DEVICE Performing Organization Address City/[facility]/ZIP Co de Phone Number POC RST [facility] [address] [place], [place] [id number] [place] [address] PCED [facility]OC [address] [place] [address] * Osmolality, Urine (01/06/2024 12:29 AM CDT) Osmolality, U 605 150 - 1150 mOsm/kg 01/06/2024 1:32 AM CDT DTL Urine 01/06/2024 12:2 9 AM CDT 01/06/2024 1:12 AM CDT Ashley Mcgraw M.D. LAB URINE ORDERABLES Performing Organization Address City/[facility]/ZIP Co de Phone Number [facility] [address] [place], [place] [address] [address] [place] [address] * pH, Random, Urine (01/06/2024 12:29 AM CDT) pH, Random, U 6.0 4.5 - 8.0 01/06/2024 1:32 AM CDT DTL Urine 01/06/2024 12:2 9 AM CDT 01/06/2024 1:12 AM CDT Ashley Mcgraw M.D. LAB URINE ORDERABLES Performing Organization Address City/[facility]/ZIP Co de Phone Number [facility] [address] [facility] [address] [place] [address] * Bacterial Culture, Aerobic + Susceptibility, Urine (01/06/2024 12:29 AM CDT) Only the most recent of2 resultswithin the time period is included. Pathologist [facility] Urine Culture No growth after 1 day of incubation. 01/07/2024 8:52 AM CDT DT Urine (Urine, Straight Catheter) 01/06/2024 12:29 AM CDT 01/06/2024 3:35 AM CDT Comment:Specimen Source Site : Urine Ashley Mcgraw M.D. LAB MICROBIOLOGY - G ENERAL ORDERABLES Performing Organization Address [facility] Co de Phone Number [facility] [address] [facility] [address] [place] [address] * (ABNORMAL) Prothrombin Time (PT) (01/06/2024 12:28 AM CDT) Only the most recent of3 resultswithin the time period is included. Pathologist [facility] Prothrombin Time, P 14.5(H) 9.4 - 12.5 sec 01/06/2024 12:39 AM CDT [facility] 1.3 0.9 - 1.1 01/06/2024 12:39 AM CDT [facility] Comment: ----ADDITIONAL INFORMATION---- Standard intensity warfarin therapeutic range: 2.0 to 3.0 ?? High intensity warfarin therapeutic range: 2.5 to 3.5 Blood (Blood, Venous) 01/06/2024 12:28 AM CDT 01/06/2024 12:32 AM CDT Ashley Mcgraw M.D. LAB BLOOD ADD-ON Performing Organization Address City/[facility] Co de Phone Number [facility] [address] [place] [address], [facility] [address] [place] [address] * (ABNORMAL) Lipase (01/05/2024 11:23 PM CDT) Only the most recent of2 resultswithin the time period is included. Pathologist [facility] Lipase, S 2948(H) 13 - 60 U/L 01/06/2024 2:20 AM CDT DTL Blood (Blood, Venous) 01/05/2024 11:23 PM CDT 01/05/2024 11:45 PM CDT Ky Carr D.O. LAB BLOOD ADD-ON Performing Organization Address City/[facility]/ZIP Co de Phone Number [facility] [address] DTL [facility] [address] [place] [address] * Lactate (01/05/2024 11:23 PM CDT) Only the most recent of2 resultswithin the time period is included. Lactate, P 1.9 0.5 - 2.2 mmol/L 01/05/2024 11:44 PM CDT STMA Blood (Blood, Venous) 01/05/2024 11:23 PM CDT 01/05/2024 11:29 PM CDT Ky Carr D.O. LAB BLOOD NON ADD-ON Performing Organization Address City/[facility]/ZIP Co de Phone Number [facility] [address] [place] [address], [facility] STMA [facility] [address] [place] [address] * (ABNORMAL) Basic Metabolic Panel (01/05/2024 11:23 PM CDT) Only the most recent of4 resultswithin the time period is included. Potassium, P 4.5 3.6 - 5.2 mmol/L 01/05/2024 11:46 PM CDT STMA Sodium, P 131(L) 135 - 145 mmol/L 01/05/2024 11:46 PM CDT STMA Chloride, P 96(L) 98 - 107 mmol/L 01/05/2024 11:46 PM CDT STMA Bicarbonate, P 23 22 - 29 mmol/L 01/05/2024 11:46 PM CDT STMA Anion Gap, P 12 7 - 15 01/05/2024 11:46 PM CDT STMA BUN (Blood Urea Nitrogen), P 22(H) 6 - 21 mg/dL 01/05/2024 11:46 PM CDT STMA Creatinine 0.68 0.59 - 1.04 mg/dL 01/05/2024 11:46 PM CDT STMA Estimated GFR (eGFR) 85 >=60 mL/min/BSA 01/05/2024 11:46 PM CDT STMA Comment: Estimated GFR calculated using the 2020 CKD_EPI creatinine equation. Calcium, Total, P 9.6 8.8 - 10.2 mg/dL 01/05/2024 11:46 PM CDT STMA Glucose, P 329(H) 70 - 140 mg/dL 01/05/2024 11:46 PM CDT STMA Blood (Blood, Venous) 01/05/2024 11:23 PM CDT 01/05/2024 11:29 PM CDT Ky Carr D.O. LAB BLOOD ADD-ON [facility] [address] [place] [address], [facility] [address] [place] [address] * FL Fluoro Less Than 1 Hour (01/05/2024 10:19 AM CDT) Only the most recent of2 resultswithin the time period is included. Narrative ERCP LOS RST - 01/05/2024 10:21 AM CDT This exam does not require a radiologist review or interpretation. Please refer to the patient's medical record on this date for clinical details. Calvin Bailey M.D. IMG FLUOROSCOPY P ROCEDURES ERCP LOS RST * Cytology Fine Needle Aspiration (including core biopsies) (01/05/2024 9:45 AM CDT) 01/09/2024 1:06 PM CDT DTL Report electronically signed by Davey Curiel M.D. I verify that I have examined all relevant slides/materi als for the specimen(s) and rendered or confirmed the diagnosis. 01/09/2024 1:06 PM CDT DTL Gross Description Received 6 spray-fixed smears, 6 Diff-Quik stained smears, and 2cc of blood-tinged fluid. Specimen evaluated for adequacy on site. 01/09/2024 1:06 PM CDT DTL Source A. Pancreas, Head, EUS fine needle aspiration 01/09/2024 1:06 PM CDT DTL Interpretation A. Pancreas, Head, EUS fine needle aspiration (smears/cell block): Negative for malignancy. 01/09/2024 1:06 PM CDT DTL Aspirate (Pancreas) 01/05/2024 9:45 AM CDT Leandra Fu M.D., M.P.H. LAB [place] G PATH ORDERABLES Performing Organization Address City/State/[facility] Co de Phone Number [facility] [address] [place] [address], [facility] DTL 200 [facility] 200 [place] [address] * LDA ANE ENDOTRACHEAL AIRWAY (01/05/2024 9:04 AM CDT) Narrative Alexandre Andersen APRN, CRNA - 01/05/2024 9:04 AM CDT Alexandre Andersen APRN, CRNA ? 01/05/2024 ??9:20 AM Airway Date/Time: 01/05/2024 9:04 AM Performed by: Alexandre Andersen APRN, CRNA Authorized by: Alexandre Andersen APRN, CRNA ?? Patient location during procedure: OR / Procedure Area PROCEDURE DETAILS: Mask difficulty assessment: easy mask Final airway type: video laryngoscope Laryngeal Manipulation: no ?? Final best view of glottic structures - Cormack/Lehane Score: grade 1 ETT location: oral VL device: glide scope Tolstoy scope blade size: 3 Tube size: 7 ETT distance at teeth/gum: 20 Oral tube type: standard ETT Cuffed: yes Number of attempt to successful placement: 1 [...] outcome: successful ?? Notable Events: no complications Alexandre Andersen APRN, CRNA ANESTHESIA ORDERA BLES * ERCP-Gastroenterology Image Exam (01/05/2024 8:45 AM CDT) Only the most recent of3 resultswithin the time period is included. 01/05/2024 8:37 AM CDT Narrative IIMS - 01/05/2024 10:55 AM CDT This order has been created and auto-finalized to support the import of images acquired without order. The clinical documentation to support these images can be found on the encounter that produced images. Provider Not In System IMG NON RAD IMAGI NG PROCEDURES IIMS NA * ERCP (01/05/2024 8:37 AM CDT) 01/05/2024 8:37 AM CDT [facility]ressions [facility] 01/05/2024 10:49 AM CDT Post-op Diagnoses: ? - One stent from the biliary tree was seen in the major papilla. ? - A single segmental biliary stricture was found in the lower third of ? the main bile duct. The stricture was malignant appearing. ? - One stent was removed from the biliary tree. ? - A biliary sphincterotomy was performed. ? - The biliary tree was swept and sludge was found. ? - One uncovered metal stent was placed into the common bile duct. Narrative [facility] - 01/05/2024 10:49 AM CDT Gonda 2 GI Patient Name: Charla Graham Date of : 1940 Age: 83 Procedure Date: 01/05/2024 Procedure: ? ERCP Providers: ? 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 - Discharge patient to home. Follow-up with referring team. Resume home ? medications including Plavix. Monitor for any complication. Repeat ERCP ? as clinically indicated as the stent is permanent and does not require ? replacement. Findings: ? A plastic biliary stent was visible on the time study observer film. The scope was ? passed through the upper GI tract without discovering UGI findings. One ? biliary stent originating in the biliary tree was emerging from the ? major papilla. One stent was removed from the biliary tree using a ? snare. A 0.035 inch angled Glidewire was passed into the biliary tree. ? The short-nosed traction sphincterotome was passed over the guidewire ? and the bile duct was then deeply cannulated. Contrast was injected. I ? personally interpreted the bile duct images. There was brisk flow of ? contrast through the ducts. Image quality was excellent. Contrast ? extended to the hepatic ducts. The lower third of the main bile duct ? contained a single segmental stenosis 30 mm in length. Biliary ? sphincterotomy was made with a monofilament traction (standard) ? sphincterotome using blended current. There was no post-sphincterotomy ? bleeding. To discover objects, the biliary tree was swept with an 8.5 mm ? balloon starting at the upper third of the main bile duct. Sludge was ? swept from the duct. One 10 mm by 4 cm uncovered metal stent was placed ? into the common bile duct. Bile flowed through the stent. The stent was ? in good position. Procedural Details: ? The [...] were monitored continuously. The Duodenoscope was introduced through the ? mouth, and advanced to the duodenum and used to inject contrast into the ? bile duct. The ERCP was accomplished without difficulty. The patient ? tolerated the procedure well. Complications: ? No immediate complications. Estimated Blood Loss: ?Estimated blood loss was minimal. Attending Participation: I personally performed the entire procedure. Leandra Fu MD 01/05/2024 10:49:08 AM This report has been signed electronically. Number of Addenda: 0 Note Initiated On: 01/05/2024 8:37 AM Calvin Bailey M.D. GI PROCEDURE MINDENS[facility] Organization Address City/State/ZIP Co de Phone Number [facility] NA * Upper EUS (01/05/2024 8:37 AM CDT) 01/05/2024 8:37 AM CDT Impressions [facility] - 01/05/2024 10:24 AM CDT Post-op Diagnoses: ? 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 ? FNA for cytology was obtained, and in-room cytopathology confirmed the ? presence of adenocarcinoma. Final cytology pending. Narrative [facility] - 01/05/2024 10:24 AM CDT Gonda 2 GI Patient Name: Charla Graham Date of : 1940 Age: 83 Procedure Date: 01/05/2024 Procedure: ? Upper EUS Providers: ? Leandra Fu MD Referring Provider: ?Calvin Bailey MD Pre-op Diagnoses: ?Suspected solid pancreatic neoplasm Recommendation: ? - Perform an ERCP today. Follow-up pending cytology by the referring ? team. Findings: ? ENDOSONOGRAPHIC FINDING: : ? 1) Mass in the Pancreas Head: ? Size: 16 x 16 mm ? Characteristics: Hypoechoic and poorly differentiated ? Effect: Obstructing the distal bile duct with an indwelling stent ? Vascular and Metastatic Status: ? 2) Vascular Invasion: No evidence ? Metastatic Disease: No evidence on EUS ? Fine-Needle Aspiration (FNA): ? 3) Procedure: Obtained with a 25-gauge needle after excluding ? intervening vessels ? Result: In-room cytopathology positive for malignancy ? 4) Additional Findings: ? Cystic Lesion: ? Size: 6 x 6 mm in the pancreas body ? Communication: Connected with a nondilated pancreatic duct in the body Procedural Details: ? The patient was seen, [...] oxygen saturations ? were monitored continuously. The Endosonoscope was introduced through ? the mouth, and advanced to the second part of duodenum. The upper EUS ? was accomplished without difficulty. The patient tolerated the procedure ? well. Complications: ? No immediate complications. Estimated Blood Loss: ?Estimated blood loss was minimal. Attending Participation: I personally performed the entire procedure. Leandra Fu MD 01/05/2024 10:24:22 AM This report has been signed electronically. Number of Addenda: 0 Note Initiated On: 01/05/2024 8:37 AM Calvin Bailey M.D. GI [facility] DA[facility] Organization Address City/State/ZIP Co de Phone Number [facility] NA * Cell-free DNA KRAS 12, 13, 61,146, Blood (12/20/2023 9:56 AM CDT) Only the most recent of2 resultswithin the time period is included. Result Summary NEGATIVE 12/29/2023 6:59 PM CDT DTL Result Negative 12/29/2023 6:59 PM CDT DTL Specimen WB, Whole Blood 12/29/2023 6:59 PM CDT DTL Released By Sukhwinder Caldwell M.D. 12/29/2023 6:59 PM CDT DTL Interpretation The absence of a detectable KRAS mutation in the blood of this patient does not rule out the presence of a KRAS mutation in the patient's tumor. Additional testing of the tumor sample is recommended if available. 12/29/2023 6:59 PM CDT DTL Comment: ----ADDITIONAL INFORMATION---- Cell-free DNA was isolated from the plasma and evaluated for the presence KRAS G12A, G12C, G12D, G12R, G12S, G12V, G13D, Q61K, Q61L, Q61R, Q61H, and A146 mutations using digital droplet PCR analysis. The limit of detection of this assay for the detection of the KRAS mutations (G12A, G12C, G12D, G12R, G12S, G12V, G13D, Q61K, Q61L, Q61R, Q61H, and A146T) is influenced by the amount of cfDNA in the blood. This is a biological variable that cannot be controlled. This assay was designed to detect the KRAS G12A, G12C, G12D, G12R, G12S, G12V, G13D, Q61K, Q61L, Q61R, Q61H, and A146 mutations. This test has been evaluated by our laboratory as an alternative to assessing paraffin embedded tumor specimens for KRAS mutations in patients with advanced colorectal cancer. Those studies revealed that this assay has a high positive predictive value (100% in our study) for the presence of a KRAS mutation in the patient's tumor and high concordance in the specific mutation type observed in the patient's plasma and tumor. Patients with a negative test result may still harbor a KRAS mutation at codons 12, 13, 61, or 146, and mutation testing of a tissue specimen for KRAS mutations is recommended. This test has not been clinically validated for use as a tool to monitor response to therapy or for early detection of tumors. TEST CLASSIFICATION This test was developed and its performance characteristics determined by [facility] in a manner consistent with CLIA requirements. ??This test has not been cleared or approved by the U.S. Food and Drug Administration. Blood (Blood, Venous) 12/20/2023 9:56 AM CDT 12/20/2023 10:54 AM CDT Narrative [facility] - 12/29/2023 6:59 PM CDT Specimen Information: Specimen ID: [id number] Specimen Type: Blood Specimen Collection Start Date: 12/20/2023 ??9:56 AM Specimen Received Date: 12/20/2023 10:54 AM Specimen ID: [id number] Specimen Type: Blood Specimen Collection Start Date: 12/20/2023 ??9:56 AM Specimen Received Date: 12/20/2023 10:54 AM Omid Dillard M.D. LAB GENETIC TE STING [facility] [address] [place] [address], [facility] DT [address] [place] [address] * (ABNORMAL) Carbohydrate Antigen 19-9 (CA 19-9) (12/20/2023 9:56 AM CDT) Only the most recent of2 resultswithin the time period is included. Carbohydrate Ag 19-9, S 178(H) <35 U/mL 12/20/2023 5:55 PM CDT [facility] Comment: ----ADDITIONAL INFORMATION---- The testing method is an immunoenzymatic assay manufactured by [employer] and performed on the MK2[employer] 800. ? Values obtained with different assay methods or kits may be different and cannot be used interchangeably. ? Test results cannot be interpreted as absolute evidence for the presence or absence of malignant disease. Blood (Blood, Venous) 12/20/2023 9:56 AM CDT 12/20/2023 5:01 PM CDT Omid Dillard M.D. LAB BLOOD ADD- ON Performing Organization Address [facility] Co de Phone Number [facility] [address] [place] [address] [facility] [address] [place] [address] * (ABNORMAL) Prealbumin (PAB) (12/20/2023 9:56 AM CDT) Only the most recent of2 resultswithin the time period is included. Prealbumin (PAB), S 17(L) 19 - 38 mg/dL 12/21/2023 10:54 AM CDT [facility] Blood (Blood, Venous) 12/20/2023 9:56 AM CDT 12/21/2023 6:09 AM CDT Omid Dillard M.D. LAB BLOOD ADD- ON Performing Organization Address [facility] Co de Phone Number [facility] [address] [place] [address] [facility] [address] [place] [address] * Biliary Tract Malignancy, FISH (12/13/2023 1:40 PM CDT) Result Summary Refer to Cytology/FISH combination report for final summary of the results. 12/20/2023 10:32 AM CDT DTL Result Negative. 12/20/2023 10:32 AM CDT DTL Reason for referral Evaluate for biliary tract malignancy 12/20/2023 10:32 AM CDT DTL Specimen Bile Duct 12/20/2023 10:32 AM CDT DTL Source Bile Duct, Lower third of main, brushing 12/20/2023 10:32 AM CDT DTL Method Fluorescence in situ hybridization (FISH) with locus specific probes for 1q21 (MCL1), 7p12 (EGFR), 8q24 (MYC), and 9p21 (CDKN2A) ([employer], [place], [place]). 12/20/2023 10:32 AM CDT DTL Released by Mary Lott M.D. 12/20/2023 10:32 AM CDT DTL Interpretation Refer to Cytology/FISH combination report for final interpretation. 12/20/2023 10:32 AM CDT DTL Comment: ----ADDITIONAL INFORMATION---- This test was developed using an analyte specific reagent. Its performance characteristics were determined by [facility] in a manner consistent with CLIA requirements. This test has not been cleared or approved by the U.S. Food and Drug Administration. 12/13/2023 1:40 PM CDT 12/13/2023 2:52 PM CDT Malka Montero M.D., M.H.S. LAB GENETIC TESTING [facility] - [facility] [address] [place] [address], [facility] DTL [address] [facility] [address] [place] [address] * (ABNORMAL) Biliary Tract Malignancy-Cytology, FISH (12/13/2023 1:40 PM CDT) (A) 12/20/2023 1:29 PM CDT DTL Report electronically signed by Mary Lott M.D. FISH results reviewed by: Mary Lott M.D. Cytology interpreted ??by: Wero Samuels M.D. I verify that I have examined all relevant slides/materials for the specimen(s) and rendered or confirmed the diagnosis. (A) 12/20/2023 1:29 PM CDT DTL Gross Description Received 20 cc of clear fluid in PreservCyt with 1 brush.(A) 12/20/2023 1:29 PM CDT DTL Source A. Bile Duct, Lower third of main, brushing(A) 12/20/2023 1:29 PM CDT DTL Interpretation A. Bile Duct, Lower third of main, brushing (ThinPrep): Cytology: Atypical. ??Abnormal glandular cells, favor reactive/degenera tive etiology. Fluorescence in situ hybridization (FISH) Results: Negative. Interpretation Part A: These results are equivocal and should be correlated with clinical findings to assess the risk for biliary tract neoplasia. In the absence of a clinically identifiable tumor, close follow-up is warranted. Results should be interpreted in conjunction with clinical findings. Test results are intended for diagnostic purposes and should not be utilized to make theranostic decisions. Please consider clinical consultation with Dr. Jeff Case, Dr. Ezekiel Christensen, Dr. Krystina Carlin, Dr. Warren Mcdaniel, or a [facility] physician for advice on the interpretation of these test results and the proper management of the patient based on these test results. (A) 12/20/2023 1:29 PM CDT DTL [place] (Bile, Duct) 12/13/2023 1:40 PM CDT Malka Montero M.D., M.H.S. LAB SURG PAT H ORDERABLES [facility] [address] [place] [address], [facility] [address] [place] [address] * LDA ANE ENDOTRACHEAL AIRWAY (12/13/2023 1:23 [...] ETT location: oral VL device: glide scope Tolstoy scope blade size: 3 Tube size: 7 [...] Notable Events: no complications Amarjit Smith APRN, TODD ANESTHESIA [facility] * ERCP (12/13/2023 1:09 PM CDT) 12/13/2023 [...] bile ? duct for temporary decompression. Narrative [facility] - 12/13/2023 2:24 PM CDT Oracio 6 [...] ? than 6 weeks. Findings: ? The time study observer film was normal. The esophagus was successfully [...] ? No immediate complications. 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 procedure, including non-kirk portions. Matias Trimble MD 12/13/2023 2:06:53 PM This report has been signed electronically. Number of Addenda: 0 Malka Montero M.D., M.H.S. GI PROCEDURE ORDERABLES [facility] NA * US Gallbladder and or Biliary Ducts [...] hypovascular mass. ERCP is recommended. Malka Montero M.D., M.H.S. [facility] US GENE MCCLAINJUNE * Interpretation of Outside CT Abdomen and [...] biliary duct dilation when compared to later [place] [facility] performed on the same day. 2. [...] IV contrast dated 12/12/2023. COMPARISON: ??Later performed [facility] [facility] on the same day. FINDINGS: ?? 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 This examination was performed in conjunction with a CT of the chest. Procedure Note Manjit Scott D.O. - 12/13/2023 EXAM: INTERPRETATION OF OUTSIDE CT ABDOMEN AND OR PELVIS CT abdomen andpelvis with IV contrast dated 12/12/2023. COMPARISON: Later performed [place] [facility] on the same day. 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 This examination was performed in conjunction with a CT of the chest. IMPRESSION: 1. 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 2. Inflammation of the biliary tree with imaging findings indicative ofcholangitis. No intrahepatic abscess identified. 3. Similar prominent gastrohepatic and portacaval lymph nodes which couldbe reactive, however, indeterminate given the potential malignant etiologyof the common bile duct stricture. 4. Mild inflammation extending from the splenic flexure to rectum. Nopericolonic abscess or bowel obstruction. Vahid Peña M.D. IMG CT PROCEDU RES * Bacteria / Windy Culture, Blood #2 (12/13/2023 5:56 AM CDT) Only the most recent of2 resultswithin the time period is included. [facility] Bacteria/Mandi da Culture, Blood No growth after 5 days of incubation. 12/18/2023 7:02 AM CDT DTL Blood (Blood, Peripheral Draw) 12/13/2023 5:56 AM CDT 12/13/2023 6:35 AM CDT Comment:Specimen Source Site : Blood Malka Montero M.D., M.H.S. LAB MICROBIO LOGY - GENERAL ORDERABLES Performing Organization Address City/[facility]/ZIP Co de Phone Number [facility] [address] DTL [facility] 200 [place] [address] * Lactate for Sepsis with Reflex (12/13/2023 5:55 AM CDT) [facility] Lactate, P 2.1 0.5 - 2.2 mmol/L 12/13/2023 6:30 AM CDT [facility] Blood (Blood, Venous) 12/13/2023 5:55 AM CDT 12/13/2023 6:17 AM CDT Malka Montero M.D., M.H.S. LAB BLOOD NO N ADD-ON [facility] 200 [place] [address], [place] [address] * Cystatin C with Estimated GFR (12/13/2023 5:55 AM CDT) [facility] eGFR by Cystatin C 63 >60 mL/min/BSA [...] CDT 12/13/2023 6:57 AM CDT Malka Montero M.D., M.H.S. LAB BLOOD AD D-ON Performing Organization Address City/[facility]/ZIP Co de Phone Number [address] [place] [address] * Phosphorus Inorganic (12/13/2023 5:55 AM CDT) [facility] Phosphorus (Inorganic), S 3.1 2.5 - 4.5 mg/dL 12/13/2023 7:31 AM CDT DTL Blood (Blood, Venous) 12/13/2023 5:55 AM CDT 12/13/2023 6:57 AM CDT Malka Montero M.D., M.H.S. LAB BLOOD AD D-ON Performing Organization Address City/[facility]/[place] [address] * CT chest abdomen pelv w con-Outside CT Body (12/12/2023 11:35 PM CDT) Only the most recent of2 resultswithin the time period is included. 12/12/2023 11:2 1 PM CDT Narrative [facility] - 12/13/2023 1:08 AM CDT This order has been created and auto-finalized to support the import of outside images. If available, original interpretation can be found on the Media Tab in Chart Review, in Document Viewer, or as an image in QREADS. If a re-interpretation or overread is required please follow defined workflow. ?? Provider Not In System IM CT PROCEDURES Performing Organization Address [facility] Co de Phone Number [facility] NA * CT angio head-Outside CT Neuro (12/12/2023 11:30 PM CDT) Only the most recent of2 resultswithin the time period is included. 12/12/2023 11:2 1 PM CDT Narrative [facility] - 12/13/2023 1:04 AM CDT This order has been created and auto-finalized to support the import of outside images. If available, original interpretation can be found on the Media Tab in Chart Review, in Document Viewer, or as an image in QREADS. If a re-interpretation or overread is required please follow defined workflow. ?? Provider Not In System IM CT PROCEDURES Performing Organization Address [facility] de Phone Number [facility] NA * CT [...] to more definitively assess. Calvin Bailey M.D. Jayne CT PROCEDURES * (ABNORMAL) Hemoglobin A1c (12/12/2023 [...] CDT Calvin Bailey M.D. LAB BLOOD ADD-ON [facility] [address] [place] [address], [facility] [address] [place] [address] * (ABNORMAL) Bilirubin, Direct (12/12/2023 10:43 AM CDT) Bilirubin, Direct, S 1.4(H) 0.0 - 0.3 mg/dL 12/12/2023 11:42 AM CDT DTL Blood (Blood, Venous) 12/12/2023 10:43 AM CDT 12/12/2023 11:24 AM CDT Calvin Bailey M.D. LAB BLOOD ADD-ON Performing Organization Address City/[facility] Co de Phone Number [facility] [address] [place], [place] [address] [address] [place] [address] from Last 3 Months Advance Directives For more information, please contact: [phone] * DNR/DNI (Latest Code Status on File) Date Activated Date Inactivated Comments 01/06/2024 3:43 AM 01/14/2024 12:12 PM Question Answer Comments DNR/DNI (Do Not Resuscitate/Do Not Intubate): Di scussed-Patient * Full Code Date Activated Date Inactivated Comments 12/13/2023 7:13 PM 12/15/2023 3:14 PM Question Answer Comments Full Code: Discussed As per admission note * Full Code Date Activated Date Inactivated Comments 06/13/2018 12:21 PM 06/13/2018 3:13 PM Question Answer Comments Full Code: Discussed * Full Code Date Activated Date Inactivated Comments 06/04/2018 11:49 AM 06/04/2018 2:31 PM Question Answer Comments Full Code: Discussed Care Teams Patient Access Associate Relationship Specialty Start Date End Date Elsewhere, Pcp PCP - General Internal Medicine 01/05/24
--- OUTSIDE RECORDS SUMMARY | 2024-01-20 12:38 | XMS_ITS | Encounter Summary ---
Author Organization [facility] Address [address] [place] [id number] Care Team Providers Care Natural Gas Technician Name Role Phone Elsewhere, Pcp Primary Care Provider Unavailabl e Reason for Visit * Auth/Cert (Routine) Specialty Diagnoses / Procedures Referred By Contac t Referred To Contact Referral ID Status Reason Start Date Expiration Date Visits Re quested Visits Authorized [id number] 1 1 Encounter Details Date Type Department Care Team (Late st Contact Info) Description 01/15/2024 Home Care Visit [facility] [place] [address] [place] [address] Marilyn Funes R.N. [address] [place] [phone] TELEPHONE ENCOUNTER Social History Tobacco Use Types Packs/Day Years Used Date Smoking Tobacco: Never Smokeless Tobacco: Never Alcohol Use Standard Drinks/Week Comments No 0 (1 standard drink = 0.6 oz pur e alcohol) [facility] Utilities Answer Date Recorded In the past 12 months has e Treater, gas, oil, or water [employer] threatened to shut off services in your [...] your living situation today? I have a [facility] place to live 01/06/2024 Sex and [...] CDT Comprehensive Visit Department of Ophthalmology in [address] [phone] Alan Araujo Jr., M.D. [address] [place] [phone] Discharge Disposition: Home or Self Care documented as of this encounter Visit Diagnoses Not on filedocumented in this encounter Care Teams Natural Gas Technician Relationship Specialty Start Date End Date Elsewhere, Pcp PCP - General Internal Medicine 01/05/24 documented as of this encounter
--- OUTSIDE RECORDS SUMMARY | 2024-01-20 12:38 | XMS_ITS | Referral Summary ---
Author Organization [facility] Address [address] [place] [address] Care Team Providers Care Transplant Rn Name Role Phone Elsewhere, Pcp Primary Care Provider Unavailabl e Source Comments Patient records contain information from all sites at [facility]. For routine questions regarding patient records, call [phone] during business hours, M-F 8:00 AM - 5:00 PM Central Time. Record requests for emergency care only can be directed to [phone] at any time.[facility] Encounters Date Type Department Care Team Description 01/15/20 24 Home Care Visit [facility] in [facility] [address] [place] [phone] Marilyn Funes R.N. TELEPHONE ENCOUNTER 01/05/20 24 11:47 PM CDT - 01/14/20 24 10:07 AM CDT Hospital Encounter [facility], [facility], Sixth Floor [address] [place] [phone] Ky Carr D.O. Arora, Amindra S, M.B., B.Chir. Pancreatitis Post Endoscopic Retrograde Cholangiopancreatography (HCC) (Primary Dx); Debility [R53.81]; Decline Functional Status [R53.81]; Stricture Biliary (HCC); Dysphagia [R13.10] Discharge Disposition: Home or Self Care 01/12/20 24 Clinical Communication [facility] in [facility] [address] [place] [address] Marilyn Funes R.N. Hospice Referral Communication 01/12/20 24 Home Care Visit [facility] in [facility] [place] [address] [place] [phone] Marilyn Funes R.N. [facility] INTAKE 01/12/20 24 Home Care Visit [facility] in [facility] [address] [place] [phone] Lianet Holloway R.N. HOSPICE INFO VISIT 01/09/20 24 10:00 AM CDT Ancillary Procedure Department of Radiology in [place], [place] [address] [place] [phone] Nemesio Magana M.D. 01/05/20 Clinical Communication Division of Gastroenterology in [place], [place] [address] [place] [phone] Amy Vicente M.D. 01/05/20 24 8:45 AM CDT Ancillary Procedure Department of Gastroenterology 01/05/20 24 8:40 AM CDT Ancillary Procedure Department of Gastroenterology 01/05/20 24 8:42 AM CDT - 01/05/20 24 11:46 PM CDT Hospital Encounter Department of Radiology, [facility], in [place], [place] [address] [place] [phone] Calvin Bailey M.D. Mass Pancreas Discharge Disposition: Home or Self Care 01/05/20 24 8:55 AM CDT Anesthesia Event Division of Gastroenterology in [place], [place] [address] [place] [phone] Alexandre Andersen APRN, CRNA 01/05/20 24 7:14 AM CDT - 01/05/20 8:41 AM CDT Hospital Encounter Division of Gastroenterology in [address] [phone] Calvin Bailey M.D. Abu Dayyeh, Barham K, M.D., M.P.H. Alexandre Andersen APRN, QUALITY SYSTEMS SPECIALIST Mass Pancreas Discharge Disposition: Home or Self Care 12/25/19 24 Clinical Communication Division of Gastroenterology in [place], [place] [address] [place] [address] Omid Robbins M.D. 12/22/19 24 Clinical Communication Department of Ophthalmology in [address] [phone] Mauri Farrell M.D. Nurse Assessment (New patient / Dr. Farrell) 12/20/19 24 9:20 AM CDT - 12/20/19 24 11:59 PM CDT Hospital Encounter Department of Laboratory Medicine and Pathology, [place], [place] [address] [place] [address] Omid Robbins M.D. Abnormal Findings On Diagnostic Imaging Of Other Abdominal Regions Including Retroperitoneum; Stone Common Duct Discharge Disposition: Home or Self Care 12/20/19 24 8:00 AM CDT Comprehensive Visit Division of Gastroenterology in [place], [place] [address] [place] [address] Audra Doss C.N.P. Chandrasekhar a, Vinay, M.D. Stricture Biliary (HCC) (Primary Dx); Abnormal Findings On Diagnostic Imaging Of Other Abdominal Regions Including Retroperitoneum; Stone Common Duct; Cholangitis Acute (HCC) 12/13/19 24 4:12 AM CDT - 12/15/19 24 1:09 PM CDT Hospital Encounter [facility], [facility], Fourth Floor [address] [place] [address] Naun Moore M.B., Ch.B. Vipul Caraballo M.D. Discharge Disposition: Home or Self Care 12/13/19 24 1:10 PM CDT Ancillary Procedure Department of Gastroenterology 12/13/19 24 12:41 PM CDT - 12/13/19 24 11:59 PM CDT Hospital Encounter Department of Radiology, [place], [place] [address] [place] [phone] Malka Montero M.D., M.H.S. Discharge Disposition: Home or Self Care 12/13/19 24 1:12 PM CDT Anesthesia Event Division of Gastroenterology in [place], [place] [address] [place] [address] Yolis Bonilla Mary, M.B., B.Ch., B.A.O. 12/13/19 24 5:35 AM CDT Ancillary Procedure Department of Radiology in [place], [place] [address] [place] [phone] Vahid Kaplan M.D. 12/13/19 24 Intake [facility] 12/12/19 24 Clinical Communication Division of Gastroenterology in [place], [place] [address] [place] [phone] Prescheduling , Provider 12/12/19 24 10:26 AM CDT - 12/12/19 24 11:33 AM CDT Hospital Encounter Department of Laboratory Medicine and Pathology, [facility] in [address] [phone] Calvin Bailey M.D. Mass Pancreas Discharge Disposition: Home or Self Care 12/12/19 24 11:34 AM CDT - 12/12/19 24 11:59 PM CDT Hospital Encounter Department of Radiology, [facility] in [place], [place] [address] [place] [phone] Calvin Bailey M.D. Mass Pancreas Discharge Disposition: Home or Self Care 12/04/19 24 Patient Outreach Department of Oncology in [address] [phone] Dariela Palmer RRafal 11/30/19 24 9:20 AM CDT Telemedicine Division of Gastroenterology in [address] [phone] Deyanira García R.N. Mass Pancreas (Primary Dx) 11/29/19 24 10:00 AM CDT Clinical Communication Virtual Review in [place], [place] 200 [place] [address] Pre-visit Intake 11/23/19 24 Clinical Communication Division of Gastroenterology in [address] [phone] Provider, Unknown Pre-visit Intake; [facility] 11/16/19 24 [facility] [address] [place] [address] Audra Doss C.NAlcira. Abnormal Findings On Diagnostic Imaging Of Other Abdominal Regions Including Retroperitoneum (Primary Dx) 11/03/19 24 Clinical Communication Department of Urology in [address] [phone] Alejandra Souza P.A.-Papi. Communication from Last 3 Months Allergies Active Allergy [...] glucose scanning reader (FreeStyle Barbie 14 Day Pedro) by other route. 08/25/2022 Activ e B complex-vitamin (SUPER B-50) capsule Take 1 tablet by mouth daily. 11/02/2023 Active A LIPOIC VUHV-TRQIEK-CANO ERINE ORAL Take 1 capsule by mouth [...] Overview: Added automatically from request for surgery [id number] Cataract Senile Nuclear Sclerosis Left 8 Overview: Added automatically from request for surgery [id number] Hyperlipidemia Mixed 03/17/2016 Osteoarthritis 02/13/2012 Resolved Problems [...] your living situation today? I have a [facility] place to live 01/06/2024 Sex and [...] CDT Comprehensive Visit Department of Ophthalmology in [address] [phone] Alan Araujo Jr., M.D. [address] [place] [phone] Discharge Disposition: Home or Self Care Medical Devices Implanted Type Area Hydrologic Engineer Device Identifier Shelf Expiration Date Model / Serial / Lot Hip Implant Hip Implant Bilater al: Hip Lens Tcn [id number] Bicnvx +25.0d - [id number] - [id number] Implanted:Qty : 1 on 06/04/2018 by Mauri Farrell M.D. at [facility] Ocular Lens [employer] (Previously ALONDRA) [id number] / [id number] / Lens Tcn [id number] Ant +26.0d - [id number] - [id number] Implanted:Qty : 1 on 06/13/2018 by Mauri Farrell M.D. at [facility] Ocular Lens Left: Eye [employer] (Previously ALONDRA) [id number] 12/07/2021 [id number] / [id number] / Explanted Type Area Hydrologic Engineer Device Identifier Shelf Expiration Date Model / Serial / Lot Stnt Ctt Otw 8.5f 9 - [id number] Implanted:Qty: 1 on 12/13/2023 by Matias Moss M.D., M.S. at [facility] Explanted:Qty: 1 on 01/05/2024 by Leandra Fu M.D., M.P.H. at [facility]/[employer] Biliary Stent [employer] 06/28/2026 [id number] / / [id number] Procedures Procedure Name Priority Date/Time Associated Diagnosis [...] MALIGNANCY-CYTOLOGY, FISH Routine 12/13/2023 1:40 PM CDT DC MORPH INSITU MAN EA MULTIPLEX A1 Routine [...] of48 resultswithin the time period is included. Pathologist [facility] Glucose, POCT, B 210(H) 70 - 140 mg/dL 01/14/2024 7:58 AM CDT PCLX Site Capillary 01/14/2024 7:58 AM CDT PCLX Last Intake 3-4 hours 01/14/2024 7:58 AM CDT PCLX Blood 01/14/2024 7:56 AM CDT 01/14/2024 7:58 AM CDT Unknown Provider LAB POCT ORDERABLES- MANUAL POC [facility] [address] [place] [address], [facility] PCLX [facility] POC [address] [place] [address] * (ABNORMAL) Renal Function Panel (01/13/2024 5:15 [...] CDT Bhumika Joy M.D. LAB BLOOD ADD-ON Performing Organization Address [facility]/[place] [address] * Magnesium (01/13/2024 5:15 AM CDT) Only the most recent of4 resultswithin the time period is included. Pathologist [facility] Magnesium, S 1.9 1.7 - 2.3 mg/dL 01/13/2024 6:29 AM CDT DTL Blood (Blood, Venous) 01/13/2024 5:15 AM CDT 01/13/2024 6:09 AM CDT Bhumika Joy M.D. LAB BLOOD ADD-ON Performing Organization Address [facility] Co de Phone Number [address] [address], [address] [address] * (ABNORMAL) CBC without Differential (01/13/2024 5:14 AM CDT) Only the most recent of5 resultswithin the time period is included. Hemoglobin 9.5(L) 11.6 - 15.0 g/dL 01/13/2024 [...] CDT Bhumika Joy M.D. LAB BLOOD ADD-ON Performing Organization Address City/[facility]/ZIP Co de Phone Number [facility] 200 [place] [address], [facility] DTL [facility] 200 [place] [address] * (ABNORMAL) Dipstick, Urine (01/11/2024 7:52 PM CDT) Only the most recent of3 resultswithin the time period is included. Hemoglobin, QL, U Trace(A) Negative 01/11/2024 8:44 [...] M.D. LAB URINE ORDERABLES Performing Organization Address City/[facility]/ZIP Co de Phone Number [facility] 200 [place] [address], [facility] 200 [place] [address] * (ABNORMAL) Microscopic Manual (01/11/2024 7:52 PM [...] CDT Ulysses Herrera M.D. LAB URINE ORDERABLES [facility] [address] [place] [address], [facility] [address] [place] [address] * pH, Urine (01/11/2024 7:52 PM CDT) Only the most recent of2 resultswithin the time period is included. pH, U 6.5 4.5 - 8.0 01/11/2024 9:0 1 PM CDT DTL Urine 01/11/2024 7:52 PM CDT 01/11/2024 8:27 PM CDT Ulysses A Herrera M.D. LAB URINE ORDERABLES Performing Organization Address City/[facility] Co de Phone Number [facility] [address] [place], [place] [address] [place] [address] * Osmolality, Urine (01/11/2024 7:52 PM CDT) Only the most recent of3 resultswithin the time period is included. Osmolality, U 473 150 - 1150 mOsm/kg 01/11/2024 9:01 PM CDT DTL Urine 01/11/2024 7:52 PM CDT 01/11/2024 8:27 PM CDT Ulysses Herrera M.D. LAB URINE ORDERABLES Performing Organization Address [facility] Co de Phone Number [phone] [place] [address] * (ABNORMAL) Urinalysis, with Microscopic: Urine, Midstream [...] CDT Ulysses Herrera M.D. LAB URINE ORDERABLES [facility] [address] [place] [address], [place] DTL [facility] [address] [place] [address] * CT Abdomen Pelvis with IV Contrast [...] biliary gas, as expected. Bhumika Joy M.D. [facility] CT PROCEDURES * (ABNORMAL) Hepatic Function Panel [...] CDT Bhumika Joy M.D. LAB BLOOD ADD-ON [facility] [address] [place] [address], [facility] DTL [facility] [address] [place] [address] * Interpretation of Outside CT Chest (01/09/2024 [...] the chest Nemesio Paul M.D. IMG CT DC OCEDURES * Urea, Random, Urine (01/09/2024 8:24 AM CDT) Urea, Random, U 1115 mg/dL 10:11 AM CDT DTL Comment: ----REFERENCE VALUE---- Random urine urea may be interpreted in conjunction with serum urea, using both values to calculate fractional excretion of urea. Urine (Urine, Midstream) 01/09/2024 8:24 AM CDT 01/09/2024 8:56 AM CDT Bhumika Joy M.D. LAB URINE ORDERAB LES [facility] [address] [place] [address], [facility] 200 [place] [address] * Sodium, Random, Urine (01/09/2024 8:24 AM CDT) Sodium, Random, U 134 mmol/L 01/09/2024 9:42 AM CDT [facility] Comment: ----REFERENCE VALUE---- Random urine sodium may be interpreted in conjunction with serum sodium, using both values to calculate fractional excretion of sodium. Urine (Urine, Midstream) 01/09/2024 8:24 AM CDT 01/09/2024 8:56 AM CDT Bhumika Joy M.D. LAB URINE ORDERAB LES Performing Organization Address City/[facility]/ZIP Co de Phone Number [facility] [address] [place] [address], [facility] 200 [place] [address] * Creatinine, Random, Urine (01/09/2024 8:24 AM CDT) Creatinine, Random, U 43 16 - 326 mg/dL 01/09/2024 9:42 AM CDT DT Urine (Urine, Midstream) 01/09/2024 8:24 AM CDT 01/09/2024 8:56 AM CDT Bhumika Joy M.D. LAB URINE ORDERAB LES [facility] [address] [place] [address], [facility] 200 [place] [address] * Chloride, Random, Urine (01/09/2024 8:24 AM CDT) Pathologist [facility] Chloride, Random, U 138 mmol/L 01/09/2024 9:42 AM CDT [facility] Comment: ----REFERENCE VALUE---- Random urine chloride may be interpreted in conjunction with serum chloride, using both values to calculate fractional excretion of chloride. Urine (Urine, Midstream) 01/09/2024 8:24 AM CDT 01/09/2024 8:56 AM CDT Bhumika Joy M.D. LAB URINE ORDERAB LES Performing Organization Address City/[facility]/[place] [address] * (ABNORMAL) Osmolality (01/09/2024 4:09 AM CDT) [facility] Osmolality, S 274(L) 275 - 295 mOsm/kg 01/09/2024 5:57 AM CDT [facility] Blood (Blood, Venous) 01/09/2024 4:09 AM CDT 01/09/2024 5:06 AM CDT Bhumika Joy M.D. LAB BLOOD ADD-ON Performing Organization Address City/[facility]/[place] [address] * (ABNORMAL) CBC with Differential, Blood (01/08/2024 9:43 AM CDT) Only the most recent of6 resultswithin the time period is included. [facility] Hemoglobin 10.8(L) 11.6 - 15.0 g/dL 01/08/2024 [...] - 6.45 x10(9)/L 01/08/2024 9:49 AM CDT PM Lymphocytes 0.97 0.95 - 3.07 x10(9)/L 01/08/2024 [...] Jr., M.D., M.B.A. LAB BLO OD ADD-ON [facility] [address] [place] [address], [place] STMA [facility] [address] [place] [address] [facility] [address] [place] [address] * (ABNORMAL) Comprehensive Metabolic Panel (01/08/2024 9:43 [...] Jr., M.D., M.B.A. LAB BLO OD ADD-ON [facility] [address] [place] [address], [place] [facility] [address] [place] [address] * DX Abdomen 1 View (01/08/2024 8:26 [...] CDT) Ventricular Rate ECG/Min 83 BPM MUSE DC Interval 158 ms MUSE QRSD Interval 84 ms MUSE QT Interval 384 ms MUSE QTC Interval 451 ms MUSE P [place] 69 degrees MUSE R [place] 62 degrees MUSE T Wave [place] 75 degrees MUSE 01/06/2024 2:39 AM CDT 01/06/2024 2:41 AM CDT Impressions MUSE - 01/06/2024 2:41 AM CDT Normal sinus rhythm Normal ECG No previous ECGs available Reviewed by NELSON Lanza Narrative Procedure Note Braulio Roca M.D. - 01/06/2024 IMPRESSION: Normal sinus rhythm Normal ECG No previous ECGs available Reviewed by NELSON Lanza Ashley Mcgraw M.D. ECG ORDERABLES Performing Organization Address City/[facility]/ZIP Co de Phone Number MUSE NA * (ABNORMAL) Dipstick, POCT, Urine (01/06/2024 12:49 AM CDT) Glucose, POCT, U 500(A) Negative mg/dL 01/06/2024 12:51 AM CDT PCED Ketone, POCT, U Trace(A) Negative mg/dL 01/06/2024 12:51 AM CDT PCED Specific [place], POCT, U 1.025 1.005 - 1.030 01/06/2024 [...] POCT ORDERABLES - DEVICE Performing Organization Address [facility]/ZIP Co de Phone Number POC RST [facility] [address] [place] [address], [facility] PCED [facility] POC [address] [place] [address] * Osmolality, Urine (01/06/2024 12:29 AM CDT) Osmolality, U 605 150 - 1150 mOsm/kg 01/06/2024 1:32 AM CDT DTL Urine 01/06/2024 12:2 9 AM CDT 01/06/2024 1:12 AM CDT Ashley Mcgraw M.D. LAB URINE ORDERABLES Performing Organization Address City/[facility] Co de Phone Number [facility] [address] [place] [address], [facility] [address] [place] [address] * pH, Random, Urine (01/06/2024 12:29 AM CDT) pH, Random, U 6.0 4.5 - 8.0 01/06/2024 1:32 AM CDT DT Urine 01/06/2024 12:2 9 AM CDT 01/06/2024 1:12 AM CDT Ashley Mcgraw M.D. LAB URINE ORDERABLES Performing Organization Address [facility] Co de Phone Number [facility] [address] [place], [place] [address] [address] [place] [address] * Bacterial Culture, Aerobic + Susceptibility, Urine [...] - G ENERAL ORDERABLES Performing Organization Address City/[facility] Co de Phone Number [facility] [address] [place] [address], [facility] [address] [place] [address] * (ABNORMAL) Prothrombin Time (PT) (01/06/2024 12:28 AM CDT) Only the most recent of3 resultswithin the time period is included. Prothrombin Time, P 14.5(H) 9.4 - 12.5 sec 01/06/2024 12:39 AM CDT [facility] 1.3 0.9 - 1.1 01/06/2024 12:39 AM CDT [facility] Comment: ----ADDITIONAL INFORMATION---- Standard intensity warfarin therapeutic range: 2.0 to 3.0 ?? High intensity warfarin therapeutic range: 2.5 to 3.5 Blood (Blood, Venous) 01/06/2024 12:28 AM CDT 01/06/2024 12:32 AM CDT Ashley Mcgraw M.D. LAB BLOOD ADD-ON [facility] [address] [place] [address] * (ABNORMAL) Lipase (01/05/2024 11:23 PM CDT) Only the most recent of2 resultswithin the time period is included. Pathologist [facility] Lipase, S 2948(H) 13 - 60 U/L 01/06/2024 2:20 AM CDT DTL Blood (Blood, Venous) 01/05/2024 11:23 PM CDT 01/05/2024 11:45 PM CDT Ky Carr D.O. LAB BLOOD ADD-ON [facility] [address] [place] [address] * Lactate (01/05/2024 11:23 PM CDT) Only the most recent of2 resultswithin the time period is included. Pathologist [facility] Lactate, P 1.9 0.5 - 2.2 mmol/L 01/05/2024 11:44 PM CDT STMA Blood (Blood, Venous) 01/05/2024 11:23 PM CDT 01/05/2024 11:29 PM CDT Ky Carr D.O. LAB BLOOD NON ADD-ON [facility] [address] [place] [address], [facility] STMA [facility] [address] [place] [address] * (ABNORMAL) Basic Metabolic Panel (01/05/2024 11:23 [...] CDT Ky Carr D.O. LAB BLOOD ADD-ON [facility] [address] [place] [address], [facility] [address] [place] [address] * [place] Fluoro Less Than 1 Hour [...] M.D., M.P.H. LAB [place] G PATH ORDERABLES [facility] [address] [place] [address], [facility] DT [address] [facility] [address] [place] [address] * LDA ANE ENDOTRACHEAL AIRWAY (01/05/2024 9:04 [...] ETT location: oral VL device: glide scope [place] scope blade size: 3 Tube size: 7 [...] AM CDT) 01/05/2024 8:37 AM CDT Impressions [facility] - 01/05/2024 10:49 AM CDT Post-op Diagnoses: [...] placed into the common bile duct. Narrative [facility] - 01/05/2024 10:49 AM CDT Gonda 2 [...] plastic biliary stent was visible on the master tax advisor film. The scope was ? passed through [...] Participation: I personally performed the entire procedure. Leadnra Fu MD 01/05/2024 10:49:08 AM This report has been signed electronically. Number of Addenda: 0 Note Initiated On: 01/05/2024 8:37 AM Calvin Bailey M.D. GI PROCEDURE RAFA DAHL [facility] NA * Upper EUS (01/05/2024 8:37 AM CDT) 01/05/2024 8:37 AM CDT Impressions [facility] - 01/05/2024 10:24 AM CDT Post-op Diagnoses: ? 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 ? FNA for cytology was obtained, and in-room cytopathology confirmed the ? presence of adenocarcinoma. Final cytology pending. Narrative [facility] - 01/05/2024 10:24 AM CDT Gonda 2 [...] 8:37 AM Calvin Bailey M.D. GI PROCEDURE [facility] Organization Address City/State/[facility] Phone Number [facility] NA * Cell-free DNA KRAS 12, 13, [...] developed and its performance characteristics determined by [facility] in a manner consistent with CLIA requirements. ??This test has not been cleared or approved by the U.S. Food and Drug Administration. Blood (Blood, Venous) 12/20/2023 9:56 AM CDT 12/20/2023 10:54 AM CDT [facility] - 12/29/2023 6:59 PM CDT Specimen Information: Specimen ID: [id number] Specimen Type: Blood Specimen Collection Start Date: 12/20/2023 ??9:56 AM Specimen Received Date: 12/20/2023 10:54 AM Specimen ID: [id number] Specimen Type: Blood Specimen Collection Start Date: 12/20/2023 ??9:56 AM Specimen Received Date: 12/20/2023 10:54 AM Omid Dillard M.D. LAB GENETIC TE STING Performing Organization Address City/[facility]/ZIP Co de Phone Number [facility] [address] [place] [address], [facility] DTL [address] [facility] [address] [place] [address] * (ABNORMAL) Carbohydrate Antigen 19-9 (CA 19-9) (12/20/2023 9:56 AM CDT) Only the most recent of2 resultswithin the time period is included. [facility] Carbohydrate Ag 19-9, S 178(H) <35 U/mL 12/20/2023 5:55 PM CDT [facility] Comment: ----ADDITIONAL INFORMATION---- The testing method is an immunoenzymatic assay manufactured by [employer]. and performed on the [employer] DxI 800. ? Values obtained with different assay methods or kits may be different and cannot be used interchangeably. ? Test results cannot be interpreted as absolute evidence for the presence or absence of malignant disease. Blood (Blood, Venous) 12/20/2023 9:56 AM CDT 12/20/2023 5:01 PM CDT Omid Dillard M.D. LAB BLOOD ADD- ON Performing Organization Address City/[facility]/ZIP Co de Phone Number [facility] [address] [place] [address] [facility] [address] [place] [address] * (ABNORMAL) Prealbumin (PAB) (12/20/2023 9:56 AM CDT) Only the most recent of2 resultswithin the time period is included. [facility] Prealbumin (PAB), S 17(L) 19 - 38 mg/dL 12/21/2023 10:54 AM CDT [facility] Blood (Blood, Venous) 12/20/2023 9:56 AM CDT 12/21/2023 6:09 AM CDT Omid Dillard M.D. LAB BLOOD ADD- ON [facility] [address] [place] [address] [facility] [address] [place] [address] * Biliary Tract Malignancy, FISH (12/13/2023 1:40 PM CDT) Pathologist [facility] Result Summary Refer to Cytology/FISH combination report [...] (MYC), and 9p21 (CDKN2A) ([employer], [place], [place]). 12/20/2023 10:32 AM CDT DTL Released by Mary Lott M.D. 12/20/2023 10:32 AM CDT DTL Interpretation Refer to Cytology/FISH combination report for final interpretation. 12/20/2023 10:32 AM CDT DTL Comment: ----ADDITIONAL INFORMATION---- This test was developed using an analyte specific reagent. Its performance characteristics were determined by [facility] in a manner consistent with CLIA requirements. This test has not been cleared or approved by the U.S. Food and Drug Administration. 12/13/2023 1:40 PM CDT 12/13/2023 2:52 PM CDT Malka Montero M.D., M.H.S. LAB GENETIC TESTING [facility] [address] [place] [address], [facility] DTL [address] [facility] [address] [place] [address] * (ABNORMAL) Biliary Tract Malignancy-Cytology, FISH (12/13/2023 [...] results. (A) 12/20/2023 1:29 PM CDT DTL [place] (Bile, Duct) 12/13/2023 1:40 PM CDT Malka Montero M.D., M.H.S. LAB SURG PAT H ORDERABLES [facility] [address] [place] [address], [facility] DTL [address] [facility] [address] [place] [address] * LDA ANE ENDOTRACHEAL AIRWAY (12/13/2023 1:23 [...] ETT location: oral VL device: glide scope [place] scope blade size: 3 Tube size: 7 [...] Smith APRN, CRNA ANESTHESIA ORDE NABILA * ERCP (12/13/2023 1:09 PM CDT) 12/13/2023 1:09 PM CDT [facility]ressions [facility] 12/13/2023 2:24 PM CDT Post-op Diagnoses: [...] bile ? duct for temporary decompression. Narrative [employer] - 12/13/2023 2:24 PM CDT Oracio [...] ? than 6 weeks. Findings: ? The master tax advisor film was normal. The esophagus was successfully [...] ? No immediate complications. 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 Malka Montero M.D., M.H.S. IMG US GENE GARCIA * Interpretation of Outside CT Abdomen and [...] biliary duct dilation when compared to later [place] CT performed on the same day. 2. [...] IV contrast dated 12/12/2023. COMPARISON: ??Later performed [place] CT on the same day. FINDINGS: ?? Redemonstration of short segment distal common bile duct stricture (series 4 image 151) with upstream biliary biliary debris (but without identifiable obstructive stone or mass) and upstream biliary ductal dilation, but overall less severe since later performed [place] CT, for intrahepatic biliary ductal dilation has [...] not significantly changed compared to later performed [place] CT. This examination was performed in conjunction with a CT of the chest. Procedure Note Manjit Scott D.O. - 12/13/2023 EXAM: INTERPRETATION OF OUTSIDE CT ABDOMEN AND OR PELVIS CT abdomen andpelvis with IV contrast dated 12/12/2023. COMPARISON: Later performed [place] CT on the same day. FINDINGS: Redemonstration of short segment distal common bile duct stricture (series4 image 151) with upstream biliary biliary debris (but withoutidentifiable obstructive stone or mass) and upstream biliary ductaldilation, but overall less severe since later performed [place] CT, for intrahepatic biliary ductal dilation has [...] has not significantly changed compared to laterperformed [place] CT. This examination was performed in conjunction with a CT of the chest. IMPRESSION: 1. Redemonstration of distal common bile duct stricture with persistentdilation of the common bile duct but less severe intrahepatic biliary ductdilation when compared to later [place] CT performed on the same day. 2. Inflammation of the biliary tree with imaging findings indicative ofcholangitis. No intrahepatic abscess identified. 3. Similar prominent gastrohepatic and portacaval lymph nodes which couldbe reactive, however, indeterminate given the potential malignant etiologyof the common bile duct stricture. 4. Mild inflammation extending from the splenic flexure to rectum. Nopericolonic abscess or bowel obstruction. Vahid Peña M.D. [facility] CT PROCEDU RES * Bacteria / Windy [...] LOGY - GENERAL ORDERABLES Performing Organization Address [facility] Co de Phone Number [facility] [address] [place] [address], [facility] DTL [facility] [address] [place] [address] * Lactate for Sepsis with Reflex (12/13/2023 5:55 AM CDT) Lactate, P 2.1 0.5 - 2.2 mmol/L 12/13/2023 6:30 AM CDT [facility] Blood (Blood, Venous) 12/13/2023 5:55 AM CDT 12/13/2023 6:17 AM CDT Malka Montero M.D., M.H.S. LAB BLOOD NO N ADD-ON Performing Organization Address [facility] Co de Phone Number [facility] [address] [facility] [address] [place] [address] * Cystatin C with Estimated GFR (12/13/2023 5:55 AM CDT) eGFR by Cystatin C 63 >60 mL/min/BSA [...] LAB BLOOD AD D-ON Performing Organization Address [facility] de Phone Number [facility] 200 [place] [address], [facility] [address] [place] [address] * Phosphorus Inorganic (12/13/2023 5:55 AM CDT) Phosphorus (Inorganic), S 3.1 2.5 - 4.5 mg/dL 12/13/2023 7:31 AM CDT DTL Blood (Blood, Venous) 12/13/2023 5:55 AM CDT 12/13/2023 6:57 AM CDT Malka Montero M.D., M.H.S. LAB BLOOD AD D-ON Performing Organization Address [facility] de Phone Number [facility] [address] [place] [address], [facility] [address] [place] [address] * CT chest abdomen pelv w con-Outside CT Body (12/12/2023 11:35 PM CDT) Only the most recent of2 resultswithin the time period is included. 12/12/2023 11:2 1 PM CDT Narrative [facility] - 12/13/2023 1:08 AM CDT This order [...] System IMG CT PROCEDURES Performing Organization Address [facility] de Phone Number [facility] NA * CT [...] Provider Not In System IMG CT PROCEDURES IITN NA * CT Pancreas Angiogram Triple Phase [...] CDT Calvin Bailey M.D. LAB BLOOD ADD-ON [facility] [address] [place] [address], [facility] [address] [place] [address] * (ABNORMAL) Bilirubin, Direct (12/12/2023 10:43 AM CDT) Bilirubin, Direct, S 1.4(H) 0.0 - 0.3 mg/dL 12/12/2023 11:42 AM CDT DTL Blood (Blood, Venous) 12/12/2023 10:43 AM CDT 12/12/2023 11:24 AM CDT Calvin Bailey M.D. LAB BLOOD ADD-ON [facility] [address] [place] [address], [place] DTL [facility] [address] [place] [address] from Last 3 Months Advance Directives For more information, please contact: [phone] * DNR/DNI (Latest Code Status on File) [...] Answer Comments Full Code: Discussed Care Teams Transplant Rn Relationship Specialty Start Date End Date Elsewhere, Pcp PCP - General Internal Medicine 01/05/24
--- OUTSIDE RECORDS SUMMARY | 2024-01-20 12:38 | XMS_ITS ---
Author Organization [facility] Address [address] [place] [address] Care Team Providers Care Manufacturing Quality Inspector Name Role Phone Unavailable Unavailable Unavailable Surgery Details Not on file Complications Check Surgery Details section. Procedure Estimated Blood Loss Check Surgery Details section. Procedure Findings Check Surgery Details section. Procedure Specimens Taken Check Surgery Details section.
--- OUTSIDE RECORDS SUMMARY | 2024-01-20 12:39 | XMS_ITS | Encounter Summary ---
Author Organization [facility] Address [address] [place] [address] Care Team Providers Care Clinical Director Name Role Phone Elsewhere, Pcp Primary Care Provider Unavailabl e Encounter Details Date Type Department Care Team (Latest Contact Info) Description 01/05/2024 8:55 AM CDT Anesthesia Event Division of Gastroenterology in [place], [place] [address] [place] [phone] Alexandre Andersen APRN, OCCUPATIONAL THERAPY TEACHER [address] [place] [phone] Anesthesia Record Procedure Summary Procedure Name Responsible Anesthesiologist Anesthesia Start Time Anesthesia Stop Time ENDOSCOPIC ULTRASOUND (EUS) Alexandre Andersen APRN, OCCUPATIONAL THERAPY TEACHER 01/05/24 0855 01/05/24 1023 Events Date Time Event Comment 01/05/2024 0808 0855 An Start Machine/Equipme nt Checked Infection Precautions Followed Procedure/Site Verified NPO Status Verified Supine Standard ASA Monitors Applied 0901 An Induction 0904 An Intubation 0912 Turnover to Proceduralist 0917 Proc Start 1010 Turnover to ANE Staff 1012 Proc Fin 1022 Airway Removal Criteria Met 1022 Extubation/Airway Removed 1023 an stop data 1023 An End I completed my handoff to the receiving staff during which we 1. Identified the patient 2. Identified the responsible provider 3. Reviewed the pertinent medical history 4. Discussed the surgical course 5. Reviewed intra-op anesthesia management and issues during anesthesia 6. Set expectations for post-procedure period 7. Allowed opportunity for questions and acknowledgement of understanding. Meds Name Total fentanyl injection 50 mcg/mL 100 mcg lidocaine 2% (mg) injection 100 mg rocuronium 10 mg/mL injection 20 mg succinylcholine 20 mg/mL injection 160 m g phenylephrine 100 mcg/mL injection 100 m cg ondansetron 4 mg/2 mL injection 8 mg sugammadex 100 mg/mL injection 200 mg propofol 10 mg/mL infusion 450.36 mg propofol 10 mg/mL injection 110 mg levoFLOXacin in D5W IVPB 500 mg (LEVAQUI N) 500 mg dexAMETHasone (DECADRON) injection 4 mg/ mL 4 mg Lactated Ringers Free Drip 725 mL * Agents No agents on file. * Blood No blood administrations on file. Lines, Drains, and Airways Type Details Placement Removal Peripheral IV Placement Date: 12/13 12/05; Placement Time: 0758; Catheter Size: 22 G; Orientation: Right; Location: Hand; Site Prep: Chlorhexidine (Preferred); Technique: Anatomical landmarks; Inserted by: Jayna Quiroga; Insertion Attempts: 1; Removal Date: 01/05/24; Removal Time: 1208; Removal Reason: Patient discharged 01/05/24 0758 by Whit Sanford R.N. 01/05/24 1208 by Whit Sanford R.N. ETT Placement Date: 12/13 12/05; Placement Time: 0904 (created via procedure documentation); Mask Ventilation: Easy mask; Technique: Video laryngoscopy; Type: Standard ETT; Single Lumen Tube Size: 7 mm; Cuffed: Yes; Location: Oral; Grade View: Grade 1; Insertion Attempts: 1; Placement Verification: Bilateral breath sounds, Positive ETCO2, Symmetrical chest wall movement; Removal Date: 01/05/24; Removal Time: 1022 01/05/24 0904 by Alexandre Andersen APRN, CRNA 01/05/24 1022 by Alexandre Andersen APRN, CRNA documented in this encounter Social History Tobacco Use Types Packs/Day Years Used Date Smoking Tobacco: Never Smokeless Tobacco: Never Alcohol Use Standard Drinks/Week Comments No 0 (1 standard drink = 0.6 oz pur e alcohol) [facility] Utilities Answer Date Recorded In the past 12 months has [facility] [employer], gas, oil, or water [employer] threatened to shut off services in your [...] your living situation today? I have a [facility] place to live 01/06/2024 Sex and Gender Information Value Date Recorded Sex Assigned at Female 11/29/2023 7:47 PM CDT Gender Identity Female 11/29/2023 7:47 PM CDT Sexual Orientation Straight 11/29/2023 7: 47 PM CDT documented as of this encounter OR Notes * Anesthesia Postprocedure Evaluation - Alexandre Andersen APRN, CRNA - 01/05/2024 10:32 AM CDT Patient: Charla Graham Procedure Summary Date: 01/05/24 Room / Location: Division of Gastroenterology in [place], [place] Anesthesia Start: 08 Anesthesia Stop: 1022 Procedures: ENDOSCOPIC ULTRASOUND (EUS) ERCP Diagnosis: Mass Pancreas Scheduled Providers: Leandra Fu M.D., M.P.H.; Alexandre Andersen APRN, CRNA Responsible Provider: Alexandre Andersen APRN, CRNA Anesthesia Type: general ASA Status: 3 Anesthesia Type: general Last vitals Vitals Value Taken Time BP 115/60 01/05/24 1031 Temp 36.4 ??C 01/05/24 1031 Pulse 76 01/05/24 1032 Resp 17 01/05/24 1032 SpO2 95 % 01/05/24 1032 Vitals shown include unfiled device data. Please reference Vitals flowsheet for most recent vital signs. Anesthesia Post Evaluation Patient Disposition: dismissal Cardiovascular status: hemodynamics (HR & BP) acceptable Respiratory status: patent airway with spontaneous effort Temperature: normothermic Oxygen requirements: room air Level of consciousness: sedated but awakens easily Pain score: pain adequately controlled and/or at baseline Post Op nausea/vomiting: none Hydration status: euvolemic * Anesthesia Procedure Notes - Alexandre Andersen APRN, CRNA - 01/05/2024 9:20 AM CDT Associated Order(s): Airway Airway Date/Time: 01/05/2024 9:04 AM Performed by: Alexandre Andersen APRN, CRNA Authorized by: Alexandre Andersen APRN, CRNA Patient location during procedure: OR / Procedure Area PROCEDURE DETAILS: Mask difficulty assessment: easy mask Final airway type: video laryngoscope Laryngeal Manipulation: no Final best view of glottic structures - Cormack/Lehane Score: grade 1 ETT location: oral VL device: glide scope Alexis scope blade size: 3 Tube size: 7 [...] no complications * Anesthesia Preprocedure Evaluation - Warren Ge M.D. - 01/05/2024 8:05 AM CDT Preprocedure Anesthesia & H&P Assessment Procedure Summary Date/Time: 01/05/2467 Scheduled providers: Leandra Fu M.D., M.P.H.; Alexandre Andersen APRN, CRNA Procedures: ENDOSCOPIC ULTRASOUND (EUS) ERCP Diagnosis: Mass Pancreas [K86.89] Location: Division of Gastroenterology in [place], [place] Pertinent components of the patient's history including current problem list, medical history, surgical history, family history, social history, medications and allergies were reviewed. Present illness and pre-op diagnosis were confirmed. The planned surgery / procedure was verified with the patient / legal guardian. 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 Nervous (+) Infarction Cerebral (HCC) Digestive (+) Cholangitis Acute (HCC) (+) Stricture Biliary (HCC) Other (+) Abnormal Levels Of Other Serum Enzymes OBJECTIVE PHYSICAL EXAMINATION Airway (HEENT) Mallampati: III TM Distance: >3 FB Neck ROM: Full Mouth Opening: >3 cm Upper Lip Bite Test Class: I Cardiovascular Rhythm: Regular Rate: Normal Cardiovascular Assessment: cardiovascular normal Functional Capacity: >4 METS Pulmonary Pulmonary Assessment: Clear General / Constitutional Constitutional Assessment: Normal General State of Health:: healthy appearing and calm ASSESSMENT / PLAN ANESTHESIA PLAN ASA: 3 Anesthesia Plan: general Patient seen and allergies reviewed, anesthesia plan and risks discussed directly with patient /legal guardian or through an gang mower operator. The use of blood products not discussed Approval to Proceed: approved for anesthesia documented in this encounter Plan of Treatment Upcoming Encounters Date Type Department Care Team (Latest Contact Info) Description 02/19/2024 9:30 AM CDT Comprehensive Visit Department of Ophthalmology in [place], [place] [address] [place] [phone] Alan Araujo Jr., M.D. [address] [phone] Discharge Disposition: Home or Self Care documented as of this encounter Procedures Procedure Name Priority Date/Time Associated Diagnosis Comments LDA ANE ENDOTRACHEAL AIRWAY Routine 01/05/2024 9:04 AM CDT documented in this encounter Results * LDA ANE ENDOTRACHEAL AIRWAY (01/05/2024 9:04 [...] ETT location: oral VL device: glide scope Alexis scope blade size: 3 Tube size: 7 [...] Notable Events: no complications Alexandre Andersen APRN, OCCUPATIONAL THERAPY TEACHER ANESTHESIA ORDERA BLES documented in this encounter Visit Diagnoses Not on filedocumented in this encounter Administered Medications Inactive Administered Medications - up to 3 most recent administrations Medication Order MAR Action Action Date Dose Rate Site dexAMETHasone injection (DECADRON) intravenous, As needed, Starting on Mon01/05/24 at 0847, Anesthesia Intra-op Given 01/05/2024 8:47 AM CDT 4 mg fentaNYL injection (SUBLIMAZE) intravenous, As needed, Starting on Mon01/05/24 at 0900, Anesthesia Intra-op Given 01/05/2024 9:17 AM CDT 50 mcg Given 01/05/2024 9:00 AM CDT 50 mcg Lactated Ringer's intravenous, Continuous Infusion: Per Instructions PRN, Starting on Mon01/05/24 at 0854, Anesthesia Intra-op New Bag 01/05/2024 8:54 AM CDT levoFLOXacin in D5W IVPB 500 mg (LEVAQUIN) 500 mg, intravenous, at 100 mL/hr, Administer over 60 Minutes, Once, On Mon01/05/24 at 0830, For 1 dose, Pre-Op, Drug Monitoring Program: Pharmacist to adjust medication dosing based on indication and drug clearance factors., Indications: Prophylaxis, surgical Given 01/05/2024 9:15 AM CDT 500 mg lidocaine (PF) (cardiac) injection intravenous, As needed, Starting on Mon01/05/24 at 0901, Anesthesia Intra-op Given 01/05/2024 9:01 AM CDT 100 mg ondansetron (PF) injection (ZOFRAN) intravenous, As needed, Starting on Mon01/05/24 at 0912, Anesthesia Intra-op Given 01/05/2024 9:12 AM CDT 4 mg Given 01/05/2024 8:47 AM CDT 4 mg phenylephrine injection intravenous, As needed, Starting on Mon01/05/24 at 0915, Anesthesia Intra-op Given 01/05/2024 9:15 AM CDT 100 mcg propofol 10 mg/mL infusion (DIPRIVAN) intravenous, Continuous Infusion: Per Instructions PRN, Starting on Mon01/05/24 at 0902, Anesthesia Intra-op Rate/Dose Change 01/05/2024 9:37 AM CDT 100 mcg/kg/min 33.36 mL/hr New Bag 01/05/2024 9:05 AM CDT 150 mcg/kg/min 50.04 mL/ hr propofoL injection (DIPRIVAN) intravenous, As needed, Starting on Mon01/05/24 at 0902, Anesthesia Intra-op Given 01/05/2024 9:02 AM CDT 110 mg rocuronium injection (ZEMURON) intravenous, As needed, Starting on Mon01/05/24 at 1001, Anesthesia Intra-op Given 01/05/2024 10:01 AM CDT 20 mg succinylcholine (PF) injection (ANECTINE) intravenous, As needed, Starting on Mon01/05/24 at 0903, Anesthesia Intra-op Given 01/05/2024 9:03 AM CDT 160 mg sugammadex injection (BRIDION) intravenous, As needed, Starting on Mon01/05/24 at 1013, Anesthesia Intra-op Given 01/05/2024 10:13 AM CDT 200 mg documented in this encounter Care Teams Clinical Director Relationship Specialty Start Date End Date Elsewhere, Pcp PCP - General Internal Medicine 01/05/24 documented as of this encounter
--- OUTSIDE RECORDS SUMMARY | 2024-01-20 12:39 | XMS_ITS | Encounter Summary ---
Author Organization [facility] Address [address] [place] [phone] Care Team Providers Care Production Editor Name Role Phone Elsewhere, Pcp Primary Care Provider Unavailabl e Encounter Details Date Type Department Care Team (Late st Contact Info) Description 01/09/2024 10:00 AM CDT Ancillary Procedure Department of Radiology in [place], [place] [address] [place] [phone] Nemesio Paul M.D. [address] [place] [phone] Social History Tobacco Use Types Packs/Day Years Used Date Smoking Tobacco: Never Smokeless Tobacco: Never Alcohol Use Standard Drinks/Week Comments No 0 (1 standard drink = 0.6 oz pur e alcohol) [facility] Utilities Answer Date Recorded In the past 12 months has [facility] [employer], gas, oil, or water [employer] threatened to shut off services in your [...] your living situation today? I have a [facility] place to live 01/06/2024 Sex and [...] CDT Comprehensive Visit Department of Ophthalmology in [address] [phone] Alan Araujo Jr., M.D. [address] [place] [phone] Discharge Disposition: Home or Self Care documented as of this encounter Procedures Procedure Name Priority Date/Time Associated Diagnosis Comments INTERPRETATION OF OUTSIDE CT CHEST RAD - Routine (most inpatients and all outpatients) 01/09/2024 10:01 AM CDT documented in this encounter Results * Interpretation of Outside CT Chest (01/09/2024 [...] the chest Nemesio Paul M.D. IMG CT MO OCEDURES documented in this encounter Visit Diagnoses Not on filedocumented in this encounter Care Teams Production Editor Relationship Specialty Start Date End Date Elsewhere, Pcp PCP - General Internal Medicine 01/05/24 documented as of this encounter
--- OUTSIDE RECORDS SUMMARY | 2024-01-20 12:39 | XMS_ITS | Encounter Summary ---
Author Organization [facility] Address [address] [place] [address] Care Team Providers Care Data Security Administrator Name Role Phone Elsewhere, Pcp Primary Care Provider Unavailabl e Encounter Details Date Type Department Care Team (Latest Contact Info) Description 01/05/2024 8:40 AM CDT Ancillary Procedure Department of Gastroenterology Social History Tobacco Use Types Packs/Day Years Used Date Smoking Tobacco: Never Smokeless Tobacco: Never Alcohol Use Standard Drinks/Week Comments No 0 (1 standard drink = 0.6 oz pur e alcohol) [facility] Utilities Answer Date Recorded In [...] your living situation today? I have a [facility] place to live 01/06/2024 Sex and [...] CDT Comprehensive Visit Department of Ophthalmology in [address] [phone] Alan Araujo Jr., M.D. [address] [place] [phone] Discharge Disposition: Home or Self Care documented as of this encounter Procedures Procedure Name Priority Date/Time Associated Diagnosis Comments GASTROENTEROLOGY IMAGE EXAM Routine 01/05/2024 8:40 AM CDT documented in this encounter Results * Upper EUS-Gastroenterology Image Exam (01/05/2024 8:40 AM CDT) 01/05/2024 8:37 AM CDT Narrative [facility] - 01/05/2024 10:35 AM CDT This order has been created and auto-finalized to support the import of images acquired without order. The clinical documentation to support these images can be found on the encounter that produced images. Provider Not In System IMG NON RAD IMAGI NG PROCEDURES [facility] NA documented in this encounter Visit Diagnoses Not on filedocumented in this encounter Care Teams Data Security Administrator Relationship Specialty Start Date End Date Elsewhere, Pcp PCP - General Internal Medicine 01/05/24 documented as of this encounter
--- OUTSIDE RECORDS SUMMARY | 2024-01-20 12:39 | XMS_ITS | Encounter Summary ---
Author Organization [facility] Address [address] [place] [address] Care Team Providers Care Electric Deicer Assembler Name Role Phone Elsewhere, Pcp Primary Care Provider Unavailabl e Reason for Referral * Outpatient (Routine) - Closed Specialty Diagnoses / Procedures Referred By Contac t Referred To Contact Diagnoses Mass Pancreas Procedures ERCP Calvin Bailey M.D. 200 [place] [address] [facility] Referral ID Status Reason Start Date Expiration Date Visits Re quested Visits Authorized [id number] Closed 11/30/2023 11/29/2024 1 1 * Outpatient (Routine) - Closed Specialty Diagnoses / Procedures Referred By Contac t Referred To Contact Diagnoses Mass Pancreas Procedures Endoscopic ultrasound (EUS) [place] [address] [facility] Referral ID Status Reason Start Date Expiration Date Visits Re quested Visits Authorized [id number] Closed 11/30/2023 11/29/2024 1 1 Reason for Visit * Outpatient (Routine) - Closed Specialty Diagnoses / Procedures Referred By Contac t Referred To Contact Diagnoses Mass Pancreas Procedures ERCP [place] [address] [facility] Referral ID Status Reason Start Date Expiration Date Visits Re quested Visits Authorized [id number] Closed 11/30/2023 11/29/2024 1 1 Encounter Details Date Type Department Care Team (Latest Contact Info) Description 01/05/2024 7:14 AM CDT - 01/05/2024 8:41 AM CDT Hospital Encounter Division of Gastroenterology in [place], [place] [address] [place] [phone] Calvin Bailey M.D. [address] [place] [phone] Leandra Fu M.D., M.P.H. [address] [place] [phone] Alexandre Andersen APRN, TODD [address] [place] [phone] Mass Pancreas Discharge Disposition: Home or Self Care Social History Tobacco Use Types Packs/Day Years Used Date Smoking Tobacco: Never Smokeless Tobacco: Never Alcohol Use Standard Drinks/Week Comments No 0 (1 standard drink = 0.6 oz pur e alcohol) [facility] Utilities Answer Date Recorded In the past 12 months has [facility] [employer], gas, oil, or water [employer] threatened to shut off services in your [...] your living situation today? I have a [facility] place to live 01/06/2024 Sex and Gender Information Value Date Recorded Sex Assigned at Female 11/29/2023 7:47 PM CDT Gender Identity Female 11/29/2023 7:47 PM CDT Sexual Orientation Straight 11/29/2023 7: 47 PM CDT documented as of this encounter Last Filed Vital Signs Vital Sign Reading Time Taken Comments Blood Pressure 119/56 01/05/2024 7:49 AM CDT Pulse 78 01/05/2024 8:39 AM CDT Temperature 35.8 ??C (96.4 ??F) 01/05/2024 7:49 AM CD T Respiratory Rate 16 01/05/2024 8:39 AM CDT Oxygen Saturation 93% 01/05/2024 8:39 AM CDT Inhaled Oxygen Concentration - - Weight - - Height - - Body Mass Index - - documented in this encounter Medications at Time of Discharge Medication Sig Dispensed Refills Start Date End Date A LIPOIC ZHQI-GLKLSI-DGURMCAOL ORAL Take 1 capsule by mouth daily. 11/02/2023 acetaminophen (TYLENOL) 325 [...] tablet Take 25 mcg by mouth daily. d-mannose (AZO D-Mannose) 500 mg capsule Take 2 capsules by mouth daily. flash glucose scanning reader (Dealer [employer]ire[employer] Barbie 14 Day Weed) by other route. 08/25/2022 flash glucose scanning reader (FREESTYLE BARBIE) by other route. 08/25/2022 flash glucose sensor (FREESTYLE BARBIE) kit by other route. 04/25/2023 glipiZIDE (GLUCOTROL) 5 mg tablet Take 5 mg by mouth 2 (two) times a day before breakfast and dinner. 10/08/2021 OLANZapine (ZyPREXA) 2.5 mg tablet Take 1 tablet (2.5 mg total) by mouth at bedtime. 30 tablet 1 01/14/2024 sennosides-docusate sodium (SENOKOT-S) 8.6-50 mg per tablet Take 1 tablet by mouth 2 (two) times a day. 30 tablet 1 12/15/2023 clopidogreL (Plavix) 75 mg tablet Take 1 tablet (75 mg total) by mouth daily for 23 days. 23 tablet 12/15/2023 01/14/2024 nitrofurantoin (MACRODANTIN) 50 mg capsule Take 50 mg by mouth daily. UTI prevention 01/06/2024 documented as of this encounter Plan of Treatment Upcoming Encounters Date Type Department Care Team (Latest Contact Info) Description 02/19/2024 9:30 AM CDT Comprehensive Visit Department of Ophthalmology in [place], [place] [address] [place] [phone] Alan Araujo Jr., M.D. [address], [place] [phone] Discharge Disposition: Home or Self Care Scheduled Orders Name Type Priority Associated Diagnoses Orde r Schedule Glucose, POCT Point of Care Testing-Docked Device Timed 0000, 0200, 0400, 06 00, 0800, 1000, 1200, 1400, 1600, 1800, 2000, 2200 for 8 Hours starting 01/05/2024 until 01/05/2024 Glucose, POCT Point of Care Testing-Docked Device Timed As needed until discontinued starting 01/05/2024 documented as of this encounter Procedures Procedure Name Priority Date/Time Associated Diagnosis Comments CYTOLOGY FINE NEEDLE ASPIRATION (INCLUDES CORE BIOPSIES Routine 01/05/2024 9:45 AM CDT GLUCOSE POCT, B Routine 01/05/2024 8:51 AM CDT ERCP Routine 01/05/2024 8:37 AM CDT Mass Pancreas ERCP Routine 01/05/2024 8:37 AM CDT Mass Pancreas UPPER EUS Routine 01/05/2024 8:37 AM CDT Mass Pancreas ENDOSCOPIC ULTRASOUND (EUS) Routine 01/05/2024 8:37 AM CDT Mass Pancreas documented in this encounter Results * Cytology Fine Needle Aspiration (including core [...] [place] G PATH ORDERABLES Performing Organization Address City/[facility] Co de Phone Number [facility] [address] [place] 200 [facility] 200 [place] [address] * (ABNORMAL) Glucose, POCT (01/05/2024 8:51 AM CDT) Glucose, POCT, B 198(H) 70 - 140 mg/dL 01/05/2024 8:53 AM CDT PCMO Site Capillary 01/05/2024 8:53 AM CDT PCMO Blood 01/05/2024 8:51 AM CDT 01/05/2024 8:53 AM CDT Unknown Provider LAB POCT ORDERABLES- MANUAL Performing Organization Address [facility] Co de Phone Number [facility] [address] PCMO [facility]OC 200 [place] [address] * ERCP (01/05/2024 8:37 AM CDT) 01/05/2024 8:37 AM CDT [facility]ressions [facility] - 01/05/2024 10:49 AM CDT [...] placed into the common bile duct. Narrative [employer] - 01/05/2024 10:49 AM CDT Gonda 2 [...] plastic biliary stent was visible on the manager dental film. The scope was ? passed through [...] Calvin Bailey M.D. GI PROCEDURE RAFA DAHL [employer] NA * Upper EUS (01/05/2024 8:37 AM CDT) 01/05/2024 8:37 AM CDT Impressions [facility] - 01/05/2024 10:24 AM CDT Post-op Diagnoses: ? 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 ? FNA for cytology was obtained, and in-room cytopathology confirmed the ? presence of adenocarcinoma. Final cytology pending. Narrative [employer] - 01/05/2024 10:24 AM CDT Odalys 2 GI Patient Name: Charla Graham Date [...] AM Calvin Bailey M.D. GI PROCEDURE RAFA Rojas Organization Address City/State/ZIP Co de Phone Number [facility] documented in this encounter Visit Diagnoses Diagnosis Mass Pancreas documented in this encounter Administered Medications Inactive Administered Medications - up to 3 most recent administrations Medication Order MAR Action Action Date Dose Rate Site Lactated Ringer's 20 mL/hr, intravenous, Continuous, Starting on Mon01/05/24 at 1045, PACU & Post-Op Continued from OR 01/05/2024 10:35 AM CDT 20 mL/hr 20 mL/hr documented in this encounter Care Teams Electric Deicer Assembler Relationship Specialty Start Date End Date Elsewhere, Pcp PCP - General Internal Medicine 01/05/24 documented as of this encounter
--- OUTSIDE RECORDS SUMMARY | 2024-01-20 12:39 | XMS_ITS | Encounter Summary ---
Author Organization [facility] Address [address] [place] [address] Care Team Providers Care English As A Second Language Instructor Name Role Phone Elsewhere, Pcp Primary Care Provider Unavailabl e Reason for Visit * Auth/Cert (Routine) Specialty Diagnoses / Procedures Referred By Contac t Referred To Contact Referral ID Status Reason Start Date Expiration Date Visits Re quested Visits Authorized [id number] 1 1 Encounter Details Date Type Department Care Team (Late st Contact Info) Description 01/12/2024 Home Care Visit [facility] in [facility] [address] [place] [phone] Marilyn Funes R.N. [address] [place] [phone] [facility] Social History Tobacco Use Types Packs/Day Years Used Date Smoking Tobacco: Never Smokeless Tobacco: Never Alcohol Use Standard Drinks/Week Comments No 0 (1 standard drink = 0.6 oz pur e alcohol) [facility] Utilities Answer Date Recorded In the past 12 months has e [employer], gas, oil, or water [employer] threatened to shut off services in your [...] your living situation today? I have a [facility] place to live 01/06/2024 Sex and [...] CDT Comprehensive Visit Department of Ophthalmology in [address] [phone] Alan Araujo Jr., M.D. [address] [place] [phone] Discharge Disposition: Home or Self Care documented as of this encounter Visit Diagnoses Not on filedocumented in this encounter Care Teams English As A Second Language Instructor Relationship Specialty Start Date End Date Elsewhere, Pcp PCP - General Internal Medicine 01/05/24 documented as of this encounter
--- OUTSIDE RECORDS SUMMARY | 2024-01-20 12:39 | XMS_ITS | Encounter Summary ---
Author Organization [facility] Address [address] [place] [address] Care Team Providers Care Radiology Transcriptionist Name Role Phone Elsewhere, Pcp Primary Care Provider Unavailabl e Encounter Details Date Type Department Care Team (Latest Contact Info) Description 01/05/2024 8:45 AM CDT Ancillary Procedure Department of Gastroenterology Social History Tobacco Use Types Packs/Day Years Used Date Smoking Tobacco: Never Smokeless Tobacco: Never Alcohol Use Standard Drinks/Week Comments No 0 (1 standard drink = 0.6 oz pur e alcohol) [facility] Utilities Answer Date Recorded In the [...] your living situation today? I have a [facility] place to live 01/06/2024 Sex and [...] CDT Comprehensive Visit Department of Ophthalmology in [address] [phone] Alan Araujo Jr., M.D. [address], [place] [phone] Discharge Disposition: Home or Self Care documented as of this encounter Procedures Procedure Name Priority Date/Time Associated Diagnosis Comments GASTROENTEROLOGY IMAGE EXAM Routine 01/05/2024 8:45 AM CDT documented in this encounter Results * ERCP-Gastroenterology Image Exam (01/05/2024 8:45 AM CDT) 01/05/2024 8:37 AM CDT Narrative [...] on filedocumented in this encounter Care Teams Radiology Transcriptionist Relationship Specialty Start Date End Date Elsewhere, Pcp PCP - General Internal Medicine 01/05/24 documented as of this encounter
--- OUTSIDE RECORDS SUMMARY | 2024-01-20 12:39 | XMS_ITS | Encounter Summary ---
Author Organization [facility] Address [address] [place] [address] Care Team Providers Care [employer]ic Systems Safety Engineer Name Role Phone Unavailable Primary Care Provider Unavailabl e Encounter Details Date Type Department Care Team (Latest Contact Info) Description 12/25/2023 Clinical Communication Division of Gastroenterology in [place], [place] [address] [place] [phone] Omid Dillard M.D. [address] [place] [phone] Social History Tobacco Use Types Packs/Day Years Used Date Smoking Tobacco: Never Smokeless Tobacco: Never Alcohol Use Standard Drinks/Week Comments No 0 (1 standard drink = 0.6 oz pur e alcohol) [facility] Utilities Answer Date Recorded In the past 12 months has [facility] [employer], gas, oil, or water [employer] threatened to shut off services in your [...] your living situation today? I have a [facility] place to live 12/13/2023 Sex and Gender Information Value Date Recorded Sex Assigned at Female 11/29/2023 7:47 PM CDT Gender Identity Female 11/29/2023 7:47 PM CDT Sexual Orientation Straight 11/29/2023 7: 47 PM CDT documented as of this encounter Miscellaneous Notes * Telephone Encounter - Omid Dillard M.D. - 12/25/2023 4:35 PM CDT I had a chance to talk to the patient's daughter, Maia to discuss the testing results. The patienthad previously agreed that it would be okay for me to discuss the results with her, as the patient herself has difficulty hearing. We reviewed the prior endoscopic workup and tissue sampling, which included an ERCP with biliary brushings which is negative for cancer. However we discussed that I was significantly concerned about the elevated serum CA 19 9; although this could potentially be due to biliary obstruction even from a benign process. Given that I remain concerned about an underlying malignancy due to her profound fatigue, and age we would like to proceed with an endoscopic ultrasound and an ERCP. An EUS was not previously performed due to the patient being on Plavix. The patient has been instructed to maintain her aspirin but hold Plavix for 7 days in preparation for the procedure. We will plan to remove the plastic stent, repeat an EUS with biopsies and then perform a biliary sphincterotomy and place a metal stent. If initial on-site cytology is negative for malignancy, a fully covered metal stent can beplaced. The patient's daughter is in agreement with this plan. documented in this encounter Plan of Treatment Upcoming Encounters Date Type Department Care Team (Latest Contact Info) Description 02/19/2024 9:30 AM CDT Comprehensive Visit Department of Ophthalmology in [address] [phone] Alan Araujo Jr., M.D. [address] [phone] Discharge Disposition: Home or Self Care documented as of this encounter Visit Diagnoses Not on filedocumented in this encounter
--- OUTSIDE RECORDS SUMMARY | 2024-01-20 12:39 | XMS_ITS | Encounter Summary ---
Author Organization [facility] Address [address] [place] [address] Care Team Providers Care Gas Processing Plant Operator Name Role Phone Elsewhere, Pcp Primary Care Provider Unavailabl e Reason for Visit * Auth/Cert (Routine) Specialty Diagnoses / Procedures Referred By Contac t Referred To Contact Referral ID Status Reason Start Date Expiration Date Visits Re quested Visits Authorized [id number] 1 1 Encounter Details Date Type Department Care Team (Late st Contact Info) Description 01/12/2024 Home Care Visit [facility] in [facility] [address] [place] [address] Lianet Holloway, RHerbertNHerbert [address] [place] [phone] SN HOSPICE INFO VISIT Social History Tobacco Use Types Packs/Day Years Used Date Smoking Tobacco: Never Smokeless Tobacco: Never Alcohol Use Standard Drinks/Week Comments No 0 (1 standard drink = 0.6 oz pur e alcohol) [facility] Utilities Answer Date Recorded In the past 12 months has [facility] [employer], gas, oil, or water [employer] threatened to shut off services in your [...] living situation today? I have a [facility] place to live 01/06/2024 Sex and Gender Information Value Date Recorded Sex Assigned at Female 11/29/2023 7:47 PM CDT Gender Identity Female 11/29/2023 7:47 PM CDT Sexual Orientation Straight 11/29/2023 7: 47 PM CDT documented as of this encounter Plan of Treatment Upcoming Encounters Date Type Department Care Team (Latest Contact Info) Description 02/19/2024 9:30 AM CDT Comprehensive Visit Department of Ophthalmology in [address] [phone] Alan Araujo Jr., M.D. [address] [place] [phone] Discharge Disposition: Home or Self Care documented as of this encounter Visit Diagnoses Not on filedocumented in this encounter Care Teams Gas Processing Plant Operator Relationship Specialty Start Date End Date Elsewhere, Pcp PCP - General Internal Medicine 01/05/24 documented as of this encounter
--- OUTSIDE RECORDS SUMMARY | 2024-01-20 12:39 | XMS_ITS | Encounter Summary ---
Author Organization [facility] Address [address] [place] [address] Care Team Providers Care Instructional Supervisor Name Role Phone Elsewhere, Pcp Primary Care Provider Unavailabl e Encounter Details Date Type Department Care Team (Latest Contact Info) Description 01/05/2024 Clinical Communication Division of Gastroenterology in [place], [place] [address] [place] [phone] Amy Vicente M.D. [address] [place] [phone] Social History Tobacco Use Types Packs/Day Years Used Date Smoking Tobacco: Never Smokeless Tobacco: Never Alcohol Use Standard Drinks/Week Comments No 0 (1 standard drink = 0.6 oz pur e alcohol) [facility] Utilities Answer Date Recorded In the past 12 months has [facility] [employer], gas, oil, or water [employer] threatened to shut off services in your [...] your living situation today? I have a [facility] place to live 01/06/2024 Sex and Gender Information Value Date Recorded Sex Assigned at Female 11/29/2023 7:47 PM CDT Gender Identity Female 11/29/2023 7:47 PM CDT Sexual Orientation Straight 11/29/2023 7: 47 PM CDT documented as of this encounter Miscellaneous Notes * Telephone Encounter - Amy Vicente M.D. - 01/05/2024 9:36 PM CDT I received a call as the on-call [facility] fellow from the patient's daughter. Ms. Graham had an ERCP performed today. 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 Postprocedurally, the patient has had progressive abdominal pain. This is generalized, but worse inthe epigastric region. Additionally, she has been continuously vomiting and unable to tolerate p.o.intake. She reports shaking chills. No measured fevers. In this context, I advised that Ms. Graham seek urgent evaluation to rule out a postprocedural complication. Ms. Graham in her daughter were understanding of this. They will present to either the local emergency department or the [facility]. documented in this encounter Plan of Treatment Upcoming Encounters Date Type Department Care Team (Latest Contact Info) Description 02/19/2024 9:30 AM CDT Comprehensive Visit Department of Ophthalmology in [address] [phone] Alan Araujo Jr., M.D. [address] [phone] Discharge Disposition: Home or Self Care documented as of this encounter Visit Diagnoses Not on filedocumented in this encounter Care Teams Instructional Supervisor Relationship Specialty Start Date End Date Elsewhere, Pcp PCP - General Internal Medicine 01/05/24 documented as of this encounter
--- OUTSIDE RECORDS SUMMARY | 2024-01-20 12:39 | XMS_ITS | Encounter Summary ---
Author Organization [facility] Address [address] [place] [address] Care Team Providers Care Financial Risk Manager Name Role Phone Elsewhere, Pcp Primary Care Provider Unavailabl e Reason for Referral * Hospice (Routine) - Authorized Specialty Diagnoses / Procedures Referred By Contact Referred To Contact Hospice and Palliative Medicine / Hospice Diagnoses Pancreatitis Post Endoscopic Retrograde Cholangiopancreatography (HCC) Stricture Biliary (HCC) Amie Butterfield APRN, C.N.P. [address] [place] [address] [facility] [address] [place] [address] Referral ID Status Reason Start Date Expiration Date Visits Requested Visits Authorized [id number] Authorized Specialty Services Required 01/12/2024 07/13/2025 1 1 Reason for Visit * Reason Comments Abdominal Pain Post-op Problem Encounter Details Date Type Department Care Team (Latest Contact Info) Description 01/05/2024 11:47 PM CDT - 01/14/2024 10:07 AM CDT Hospital Encounter [facility], [facility], Sixth Floor [address] [place] [id number] Ky Carr, DHerbertOHerbert [address] [place] [phone] Aries Osborne M.B., B.Chir. [address] [place] [address] Pancreatitis Post Endoscopic Retrograde Cholangiopancreatography (HCC) (Primary Dx); Debility [R53.81]; Decline Functional Status [R53.81]; Stricture Biliary (HCC); Dysphagia [R13.10] Discharge Disposition: Home or Self Care Social History Tobacco Use Types Packs/Day Years Used Date Smoking Tobacco: Never Smokeless Tobacco: Never Alcohol Use Standard Drinks/Week Comments No 0 (1 standard drink = 0.6 oz pur e alcohol) [facility] Utilities Answer Date Recorded In the past 12 months has e [employer], gas, oil, or water [employer] threatened to shut off services in your [...] your living situation today? I have a [facility] place to live 01/06/2024 Sex and Gender [...] Mass Index 21.23 01/06/2024 4:00 AM CDT documented in this encounter Discharge Summaries * Freida Rivers M.D. - 01/14/2024 5:57 AM CDT DISCHARGE SUMMARY BRIEF OVERVIEW Hospital: [facility] Discharge Provider: Aries Osborne M.B. Primary Team: T Gastroenterology A Primary Care Providers: Elsewhere, Pcp (General) No address on file Primary Care Provider Phone Number: None Primary Care Provider Fax Number: None Admission Date: 01/05/2024 Discharge Date: 01/14/24 PRINCIPAL DIAGNOSIS Pancreatitis Post Endoscopic Retrograde Cholangiopancreatography (HCC) SECONDARY DIAGNOSES Principal Problem: Pancreatitis Post Endoscopic Retrograde Cholangiopancreatography (HCC) Active Problems: Diabetes Mellitus Type 2 Without Complication (HCC) Stricture Biliary (HCC) Infarction Cerebral (HCC) Delirium Resolved Problems: * No resolved hospital problems. * DISCHARGE DISPOSITION Home or Self Care [1] ACTIVE ISSUES REQUIRING FOLLOW UP Discharge Notes from your Provider Team You were discharged from the GI-A Service. Please identify this service name if you call with questions after hospitalization. You were hospitalized for pancreatitis following a procedure. You improved with IV fluids and pain medication. Please seek emergency care if you experience chest pain, shortness of breath, abdominal pain, nausea/vomiting, bleeding. Medication changes: - Please continue medications as indicated in medication reconciliation - STOP taking clopidogrel (plavix). This medication was only required for 30 days after your strokein 12/2022 and does not need to be continued. Continue taking Aspirin. - START taking olanzapine (Zyprexa) 2.5 mg nightly. If you have any questions related to issues addressed during your hospitalization prior to your follow-up appointments, contact the [facility] Agricultural Services Director at [phone] and ask to speak with the GI-AService. OUTPATIENT FOLLOW UP Scheduled Appointments 02/19/2024 9:30 AM Alan Araujo Jr., M.D. Ophthalmology For appointment details refer to your Patient Appointment Guide. TEST RESULTS PENDING AT DISCHARGE Pending Labs None DETAILS OF HOSPITAL STAY REASON FOR ADMISSION Pancreatitis Post Endoscopic Retrograde Cholangiopancreatography (HCC) HOSPITAL COURSE Ms. Charla Graham is a 83 y.o. 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 She developed periumbilical abdominal pain, nausea, and vomiting about 5 hours post- procedure and presented to the ED. Recent clinical history is notable for an admission 12/12-12/14 for cholangitis. She underwent ERCP which showed purulence and choledocholithiasis in the CBD, and a plastic stent was placed in a 30 mm stricture of the distal CBD. Suspicion was highest for malignant stricture, and CA 19-9 supported this(elevated at 178). However, because of plavix (stroke history) they did not remove stones or complete sphincterotomy. She received 5 days of antibiotics for treatment of cholangitis and plan was for completion of EUS, ERCP with sphincterotomy, and metal stent placement after plavix was stopped for 7 days. She underwent EUS + ERCP on 01/04, with EUS revealing mass of the pancreas head (1.6 x 1.6 cm). 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 Final cytology was nondiagnostic and negative for malignancy. Additionally, plastic stent was removed and exchanged with metal stent, sphincterotomy completed, bile ducts swept with sludge cleared. Ataround 2 pm the same day, she had progressively severe hyun-umbilical abdominal pain, nausea, and four episodes of emesis (non-bloody). In the ED she was hypertensive but hemodynamically stable and afebrile. Hgb 12.1, WBC 13.5, Plts 290. CMP notable for Na 131, Cr baseline 0.68, glucose 329, normal T bili, AST, ALT, and mildly elevated alkphos at 139 (previous 265). She was found to have acute pancreatitis on CT and lipase 2948, consistent with post-procedural pancreatitis. She received zofran, fentanyl and morphine 4 mg without adequate analgesia. She is admitted to GI-A for post-ERCP pancreatitis. On the floor, the patient was hemodynamically stable. We administered IV fluids to maintain adequate urine output. We managed her pain with tylenol, dilaudid, heat and ice. We advanced her diet slowly as tolerated. On 01/07, we treated the patient for constipation with oral lactulose with improvement. Swallow study with no evidence of dysphagia but recommended general aspiration precautions and eating smaller meals frequently throughout the day. We consulted oncology for the concern of likely pancreatic cancer vs. ampullary vs. distal cholangiocarcinoma currently localized to the pancreas butwith a FNA cytology negative for malignancy. They discussed that overall the suspicion for malignanc y remains very high, but any form of treatment would require definitive diagnosis with a biopsy. The family and patient expressed they would not be interested in pursuing further treatment for any form of cancer given the associated morbidity of treatment. Palliative care was consulted to discuss a symptoms-based approach. The family prefer to take the patient home while they made final decisionsregarding possible hospice care. Physical Exam General: No acute distress. Lying comfortably in bed. Lungs: Breathing comfortably on room air. Clear to auscultation bilaterally. No wheezes, rales, or crackles. CV: Regular rate and rhythm, no murmurs. 2+ radial pulses. Abd: Soft, non-distended, tender to palpation over the right upper quadrant, no rebound tenderness. Extremities: Warm, dry to touch with no edema. Neuro: CN grossly intact. Moving extremities spontaneously CONSULTS ORDERED DURING THIS ADMISSION IP CONSULT TO CARE MANAGEMENT IP CONSULT TO ONCOLOGY IP CONSULT TO PALLIATIVE CARE IP CONSULT TO CARE MANAGEMENT IP CONSULT TO ONCOLOGY CONDITION AT DISCHARGE stable Discharge instructions were provided to the patient and caregiver(s). Total time spent in discharge services today: 60 minutes. Associated attestation - Aries Osborne M.B., Johanna. - 01/14/2024 8:18 AM CDT I saw the patient on the day of discharge and agree with the discharge plans and disposition. Doing well, keen to leave Assessment/plan: #1 Post ERCP/EUS pancreatitis Ms. Graham is an 83-year-old lady who underwent ERCP and EUS for a biliary stricture and developed pancreatitis following this. She was supportive successfully conservatively. Due to the persistent discomfort a CT scan was done yesterday which showed pancreatitis changes were any fluid collections. We will continue supportive care with the diet advancement. 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 Given the fact that this is most likely a malignancy (these malignancies quite desmoplastic) itwas been agree that she would not be a good candidate for Whipple versus chemotherapy. Appreciate the input from Medical Oncology as well as palliative care. After long discussion with the family are considering to go to hospice care. No GI follow up needed. documented in this encounter Discharge Instructions * Discharge Instructions* Bry Noe - 01/09/2024 7:07 AM CDT You were discharged from the [facility] Gastroenterology A Service. Please identify this service name if you call with questions after hospitalization. * Discharge Instr - Activity* Annalisa Malone O.T., O.T.[place], [facility] 01/14/2024 8:43 AM CDT OT Dysphagia Therapy Discharge Summary Impression: Ms. Graham participated in a clinical bedside dysphagia evaluation on 01/12/2024 to assess safety withoral intake/risks for aspiration. Factors contributing to aspiration risk include: generalized weakness, poor/lack of dentition, and decreased activity tolerance. Dysphagia Clinical Assessment: The patient participated in a clinical dysphagia evaluation this date to assess safety with oral intake/risks for aspiration. The patient is currently maintaining safe oxygen saturations and respirations on room air. Physical examination of the oral mechanism revealedfacial symmetry at rest. Tracheal cartilage in midline and laryngeal rise present on palpation. Oral motor examination of the tongue, lips, cheeks, and jaw was observed to be adequate. Patient/familystated no reported history of oral, pharyngeal, or esophageal dysphagia. Family describes low appetite at baseline with a preference for sweeter foods. Due to nausea, patient has had limited oral intake during hospitalization. When she has been swallowing, she describes pain/discomfort with food getting stuck and gas/bubble in throat. Patient has upper and lower dentures but has not been wearing due to discomfort. Monitored patient swallowing thin liquids, applesauce, and doughnut with no signs of aspiration or complaints of difficulty. Discussed modified diet with patient and family and they would prefer regular diet with plan to self select softer food items. Recommended Aspiration Precautions: -Watch closely for signs of aspiration -Sit upright with all oral intake and when completing oral cares -Eat small bites, take small sips, eat slowly -Minimize talking during meals -Avoid lying down for 30 minutes after meals -Good oral care 3-5 times a day -Eat smaller meals frequently throughout the day Recommended Compensation Techniques/Adaptive Equipment: -Alternate solid food with small amounts of liquids -Requires supervision/assistance Compensations for Cognitive Impairment: -Ensure a calm, distraction free environment -Assistance with feeding should be provided in an unhurried manner -Avoid challenging mixed textures or foods that fall apart (i.e. cold cereals, soups with pieces ofmeat or vegetable, nuts, etc) Current diet: Diet Recommendations - Solids: IDDSI Level 7 Regular Diet Recommendations - Liquids: IDDSI Level 0 Thin Recommended Form of Meds: Whole, With liquid, With puree Positioning Recommendations: Upright as possible for all oral intake, Remain upright for 30-60 minutes after meals Follow-up Information: No further dysphagia follow-up recommended at this time. If patient develops any additional/new signs or symptoms of dysphagia a dysphagia evaluation may be warranted. Discharge information provided by on 01/14/2024 Contact information: [facility], [address], * Attachments The following attachments cannot be sent through Care Everywhere. * Olanzapine (By mouth) (Senegalese) documented in this encounter Medications at Time of Discharge Medication Sig Dispensed Refills Start Date End Date A LIPOIC [id number] ORAL Take 1 capsule by mouth daily. [...] by mouth daily. flash glucose scanning reader (FreeStyle [place] 14 Day [place]) by other route. 08/25/2022 flash glucose scanning reader (FREESTYLE [place]) by other route. 08/25/2022 flash glucose sensor (FREESTYLE EU[place]E) kit by other route. 04/25/2023 glipiZIDE (GLUCOTROL) [...] as of this encounter Progress Notes * Aries Osborne M.B., B.Chir. - 01/13/2024 11:16 AM CDT I saw and evaluated the patient, participating in the kirk portions of the service. I reviewed the resident, Dr. Rivers???s note. I agree with her findings and plan. Sitting out in a chair. Depressed. Met up with palliative Care yesterday with the family and we have transitioned to hospice. Spoke to family member today they would like to take her home today if possible which sounds very reasonable. Appreciate the input from occupational therapy and they feel that the patient is below the functional baseline swallowing function and skilled dysphagia services are medically necessary for this patient to safely progressed to oral intake Assessment/plan: #1 Post ERCP/EUS pancreatitis Ms. Graham is an 83-year-old lady who underwent ERCP and EUS for a biliary stricture and developed pancreatitis following this. She was supportive successfully conservatively. Due to the persistent discomfort a CT scan was done yesterday which showed pancreatitis changes were any fluid collections. We will continue supportive care with the diet advancement. 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 Given the fact that this is most likely a malignancy (these malignancies quite desmoplastic) itwas been agree that she would not be a good candidate for Whipple versus chemotherapy. Appreciate the input from Medical Oncology as well as palliative care. After long discussion with the family we have elected to go to hospice care. 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 ASSESSMENT / PLAN Post-ERCP pancreatitis - pain control with Tylenol PRN, Dilaudid PRN PO, lido patch. Biopsy nondiagnostic but most suspicious for cancer. Palliative consult for goals of care. Hx CVA 01/2023 - continues ASA only per neuro. Continue home Lipitor. DM2 - HbA1c 7.6 on 12/11. holding home glipizide. has mild sliding scale insulin. Delirium: new melatonin, olanzapine 2.5mg qhs + PRN. Shireen Elam Pharm.D., R.Ph., BCPS * Freida Rivers M.D. - 01/13/2024 6:08 AM CDT Gastroenterology A Service Progress Note 83-year-old female admitted with postprocedural pancreatitis following EUS and ERCP sphincterotomy with stenting of malignant appearing biliary stricture. Management has centered around pain control,IV fluid administration, and enteral nutrition as tolerated. Interim events: No acute events overnight. No concerns this morning. She denies significant pain, nausea, vomiting. Goals care conversation yesterday, with family favoring palliative approach. At this time, the planis to take Ms. Graham home tomorrow and arrange palliative/hospice outpatient. Spoke with daughter Maia today to confirm plan. Yesterday, bedside swallow study was performed no signs of aspiration or complaints difficulty. A modified diet was discussed with patient and family and they would prefer regular diet with plan to self-select softer food items. OBJECTIVE Vitals Temperature: [37.6 ??C] 37.6 ??C Resp Rate: [20] 20 Blood Pressure: (155)/(55) 155/55 SpO2: [93 %] 93 % Pulse Rate: [93] 93 Physical Exam General: No acute distress. Lying comfortably in bed. Lungs: Breathing comfortably on room air. Clear to auscultation bilaterally. No wheezes, rales, or crackles. CV: Regular rate and rhythm, no murmurs. 2+ radial pulses. Abd: Soft, non-distended, tender to deep palpation over the right upper quadrant, no rebound tenderness. Extremities: Warm, dry to touch with no edema. Neuro: CN grossly intact. Moving extremities spontaneously Diagnostics I have personally reviewed the laboratory data and imaging since admission, and in/outs for past 72hours. ASSESSMENT / PLAN 83-year-old female admitted with postprocedural pancreatitis following EUS and ERCP sphincterotomy with stenting of malignant appearing biliary stricture in the common bile duct. Management has centered around pain control, IV fluid administration, and enteral nutrition as tolerated. FNA from the pancreas aspirate was nondiagnostic (negative for malignancy). However, the mass is suspicious for most likely pancreatic cancer vs. Ampullary vs. Distal cholangiocarcinoma currently localized to the pancreas. No evidence of metastatic disease of CT scans. Oncology and palliative care have been consulted to discuss next steps with family favoring a palliative approach. Patient and family would likefor home discharge tomorrow with hospice/palliative arrangements organized outpatient. Summary of today's plan: - Plan for discharge tomorrow. - DME supplies # Pancreatitis Post Endoscopic Retrograde Cholangiopancreatography # Likely adenocarcinoma of pancreatic head vs distal CBD # Likely malignant stricture of CBD s/p metal stent # History of cholangitis # Abdominal pain # Nausea and vomiting The overall impression is likely adenocarcinoma of the distal bile duct versus the head of the pancreas. FNA for cytology was obtained but was negative. Most likely this is a nondiagnostic result. Oncology and palliative care have been consulted with family and patient preferring palliative approach. - IV fluids as needed - Pain control Tylenol 650 mg QID PRN Dilaudid 2mg PO q4h PRN Ice, Heat, Triple cream, Lidocaine patch - Nausea control PO zofran 4 mg q6h PRN. QTc 451 - Oncology consult: family and patient favoring a palliative approach - Palliative care consult: additional information related to hospice services given to family Continue olanzapine 2.5 mg PO QHS and 2.5 mg PO q6h PRN # Delirium # Hearing impairment - Treat pain, ensure adequate hydration/PO, regular bowel movements - Minimize tethers, re-orient frequently - Patient's dentures are at home, ask family to bring to the hospital - Speak at a volume patient can hear - Maintain regular sleep/wake pattern - Continue melatonin 3 mg nightly # History of CVA (left ICA, 2022) # HLD - Continue home atorvastatin 20 mg, aspirin 81 mg # T2DM # Steroid-induced hyperglycemia, resolved - Mild correction sliding scale insulin - Hold home glipizide Baseline Mobility: BMAT Level 4 (Able to stand and walk) Diet: general diet Tubes/lines: PIV VTE prophylaxis: heparin Code status: DNR/DNI. Surrogate Decision Maker: Child, Maia Connell Disposition: Home Electronically signed by: Freida Rivers M.D. 01/13/24 8:14 AM CDT * Amie Butterfield, ESTHELA, C.N.P. - 01/12/2024 1:49 PM CDT [facility] Palliative Medicine Progress Note Patient: Charla Graham; 83 y.o.female Location: [address] [place] [address] Hospital Admission Date: 01/05/2024 11:47 PM Hospital Day: 6 Primary Institutional Custodian: Aries Osborne M.B., * Primary Care Provider: ELSEWHERE, PCP SUBJECTIVE Reason for 01/10/24 Consult: decision making support Subjective and Interval Events since our last visit: No acute events. No new symptom concerns. Her daughter's report ongoing confusion. OBJECTIVE Objective DNR/DNI Physical Exam: VS: BP 116/73 Pulse 86 Temp 36.5 ??C (Oral) Resp 20 Ht 162.6 cm Wt 56.1 kg SpO2 95% BMI 21.23 kg/m?? I&O: I/O last 3 completed shifts: In: 500 Out: 700 [Urine:700] I/O this shift: In: - Out: 200 [Urine:200] last charted BM and emesis 01/09 General: Reclined in chair in quiet well lit room. No distress noted. Respiratory: Unlabored respirations. No distress or use of accessory muscles noted. Skin: Warm, dry. Neurologic: Remains asleep during visit. No myoclonus noted. Medications/Diagnostics: Medications and allergies reviewed. Previous lab and radiology results reviewed. Olanzapine 2.5 mg PO qhs started Monday night with PRN available (prn not yet used) Last PRN Zofran and Compazine was Monday morning (Compazine now stopped) Scheduled MiraLAX and Senna. PRN Tylenol used once-twice a day. PRN Dilaudid 2 mg PO used twice . Prior use was once on 01/07. No Dilaudid thus far today Last IV Dilaudid was 01/06 Dexamethasone dose on 01/04 ASSESSMENT / PLAN Impression/Report/Plan Ms. Charla Graham is an 83 year old female admitted 01/05/24 with post procedural pancreatitis following EUS and ERCP with stenting in the setting of malignant appearing biliary stricture. Palliative Care is consulted for goals of care discussions. #1 Diabetes Mellitus Type 2 Without Complication (HCC) #2 Stricture Biliary (HCC) #3 Infarction Cerebral (HCC) #4 Pancreatitis Post Endoscopic Retrograde Cholangiopancreatography (HCC) #5 Delirium Summary of today's visit: I was able to participate in a family meeting with primary service and medical Oncology in patient's room with her daughters Radha and Antonia and family member Crsy. Charla remained napping throughout our visit. Oncology and GI updates were provided. Her daughters had anticipated and normal questions for this time of life, for which were discussed. I discussed hospice care, similarities and differences between hospice and palliative, role of hospice and timing of enrollment. Discussed that this is a changeof focus in Care and as anticipated they are having normal thoughts and emotions around hospice decision. I assess today that time will be the medicine and perhaps after returning home they will havefurther clarity to support their decision- making. No new changes to her plan of care at this time. Thankful for case management providing hospice booklet and area agency information. Patient's daughters Radha and Antonia were hoping to have an informational session with hospice as they gather information to support their decision-making. I was able to speak with [place] hospice nurse Ava who will visit later this afternoon. No new symptom concerns to address today. No further nausea or emesis documentation since initiation of nightly olanzapine. Using p.r.n. hydromorphone very sparingly. I anticipate these medications can be sent home and can follow- up with local provider for refills as needed. The symptoms may improve after stenting and quieting of pancreatitis, so may not be needed at dismissal or refilled in the community based on follow-up assessments. As of today, no new medication recommendations Advanced Care Planning: none on file. She is DNR/I during this admission. I would recommend to complete a POLST form prior to dismissal for her home reference. POLST-Form.pdf ([email or web address]) Our interdisciplinary team will continue to follow this patient with you and collaborate on their care we will revisit on Monday. Please the Palliative Medicine Service pager at [phone] ([facility]) for any questions. Reviewed with my IDT Amie Butterfield APRN [facility] for Palliative Medicine * Shandra Warren, O.T., [place], [facility] [place]12/2024 10:30 AM CDT Occupational Therapy Acute Hospital Inpatient Treatment SUBJECTIVE Patient's Name: Charla Graham Referring/Attending Provider: Aries Osborne M.B. Reason for Referral: Occupational Therapy Evaluation and Treatment History of Present Illness: Charla Graham is a 83 y.o. female who was admitted to in [place] on 01/05/2024 for Pancreatitis Post Endoscopic Retrograde Cholangiopancreatography (HCC) [K85.80]. Precautions Other Precautions: fall risk; cognition, hard of hearing (no hearing aid) Pain Assessment: Pain not reported during session. Subjective Comments: Agreeable to therapy session with encouragement. Team Communication: The patient's status was discussed and coordination of care occurred with RN OBJECTIVE Vital Signs: Vitals stable per chart review. Outcome Measures: [facility] Inpatient Short Form: Putting on and taking off regular lower body clothing?: A Little Putting on and taking off regular upper body clothing?: None Taking care of personal grooming such as brushing teeth?: A Little Bathing (including washing, rinsing, drying)?: A Little Toileting, which includes using toilet, bedpan, or urinal?: A Little Eating meals?: None Daily Activities Raw Score (max 24): 20 Daily Activities Standardized Score: 42.03 Interpretation: Based on scoring guidelines using the raw score value: Those going to home had an average score at or above 18 Those going to facility had an average score at or below 17 Clinicians answer the [facility] Inpatient Short Form based on observed patient activity and/or clinical judgement (ie. patient can be scored without physically performing each activity) Therapeutic Interventions: ACTIVITIES OF DAILY LIVING: GROOMING - Assist Level: Contact Guard Assist - Patient Location: Standing at sink - Activity: Washing hands - Therapist Delivery: educated, assisted, facilitated - Assist/Cues: verbal for technique, positioning TOILETING - Assist Level: Minimal Assist - Patient Location: Toilet - Activity: clothing management, pericare - Therapist Delivery: instructed, educated, assisted, facilitated - Assist/Cues: verbal, tactile, and visual for technique, sequencing - Adaptive Equipment: Grab bars BED MOBILITY: SUPINE to SIT - Assist Level: Supervision/Set-up - Device: use of bed rail, head of bed elevated - Therapist Delivery: educated, facilitated - Assist/Cues: verbal for technique SIT to SUPINE - Assist Level: Supervision/Set-up - Device: use of bed rail, head of bed elevated - Therapist Delivery: educated, facilitated - Assist/Cues: verbal for technique FUNCTIONAL TRANSFERS: SIT to STAND - Assist Level: Stand By Assist - Equipment: front wheeled walker and gait belt - Surface: Bed - Therapist Delivery: educated, facilitated - Assist/Cues: verbal for technique STAND to SIT - Assist Level: Stand By Assist - Equipment: front wheeled walker and gait belt - Surface: Bed - Therapist Delivery: educated, facilitated - Assist/Cues: verbal for technique TOILET TRANSFER - Assist Level: Stand By Assist - Equipment: front wheeled walker and gait belt - Approach: To and From - Surface: Toilet - Therapist Delivery: educated, facilitated - Assist/Cues: verbal for technique, proper hand placement - Adaptive Equipment: Grab bars FUNCTIONAL MOBILITY: In-room mobility performed with supervision/stand by assistance and front wheeled walker and gait belt Education/Training Provided: -Role of OT in acute setting -Safe transfer techniques Patient was left in bed with bed alarm on at end of session with call light in reach, all needs metand questions answered. Assessment Discharge Therapy Needs - OT: Ongoing skilled occupational therapy Skilled therapy can include occupational therapy provided in home health, outpatient or post-acute facility. The location of these services is determined by patient's care team in partnership with patient/family. Barriers to Discharge Home: Current functional status, Fall risk Level of Care Needed - OT: Assistance with toileting, Assistance with toilet/shower transfers, Assistance with showering/bathing, Assistance with meal preparation, Assistance with transportation, Assistance with housekeeping, Assistance with shopping Clinical Impression: Ms. Graham was quite drowsy this morning but was able to rouse with stimulation and encouragement. She required supervision to minimal assistance for standing grooming, toileting, transfers, and functional mobility using front wheeled walker. Goals of care discussions are ongoing. Will continue to follow along and proceed with OT plan of care as directed. The patient will benefit from ongoing occupational therapy services while hospitalized in order to improve engagement and independence in meaningful occupations. Plan OT Plan Comments: ADL's, goals of care?, family education/training? Functional Goals: OT Goal #1: Patient will perform toilet transfer and hygiene with modified independence to return to prior level of function. OT Goal #2: Patient will perform grooming while standing at the sink with modified independence to return to prior level of function. OT Goal #2 Status: Progressing OT Goal #3: Patient will perform full body dressing, including retrieval of clothing with modified independence to return to prior level of function. OT Goal #4: Patient will participate in cognitive assessment for safe dismissal planning. OT Goal #4 Status: Discontinued (comment) Progress: Progressing toward goals Rehab potential: Ms. Graham has good potential to achieve established occupational therapy goals within the time frame outlined below. OT Frequency: OT Amount: 1 visit per day OT Frequency: 5 times per week OT Inpatient Duration : Until goals are met or hospital discharge Requires Inpatient OT Follow-Up: Yes OT - Next Inpatient Appointment: 01/15/24 Plan: Continue with current plan Treatment interventions may include: Treatment Interventions: Therapeutic exercise, Therapeutic functional activity, Self-care/home management, Cognitive skills training Occupational Therapy Attestation Statement: Patient agrees with the plan of care and goals. Billing: Time Spent with Patient Therapeutic Interventions Home Management Training (min): 20 min Time Tracking Total Timed Units (min): 20 min Total Treatment Time (min): 20 min Shandra Warren O.T., MOT, SCFES * Bhumika Joy M.D. - 01/12/2024 6:45 AM CDT Gastroenterology A service progress note 83-year-old female admitted with postprocedural pancreatitis following EUS and ERCP sphincterotomy with stenting of malignant appearing biliary stricture. Management has centered around pain control,IV fluid administration, and enteral nutrition as tolerated. Interim events: Afebrile. Vital signs stable. HR in the 80s. BP 110s-130s/70-80s. Hgb: 9.7, Plt: 259, Leuk: 14.0 Na: 132, K: 3.5 500 cc NS bolus provided for poor oral intake. Palliative provided more information related to hospice services to the family, but did not send referrals per their request. No acute events overnight. Patient is feeling well this morning. No nausea or vomiting. No increased urinary frequency or urgency. Denies any pain anywhere. OBJECTIVE Vitals Temperature: [36.4 ??C-37 ??C] 36.5 ??C Heart Rate: [81-97] 86 Resp Rate: [18-24] 20 Blood Pressure: (116-133)/(73-84) 116/73 SpO2: [90 %-95 %] 95 % Pulse Rate: [80-97] 86 Physical Exam In no acute distress. Alert and oriented. Abdomen soft, nondistended, tender to deep palpation overthe right upper quadrant, no rebound tenderness. Regular rate and rhythm, no murmurs. Breathing comfortably on room air. No evidence of peripheral edema. Warm and well perfused. Ins & Outs Intake/Output Summary (Last 24 hours) at 01/12/2024 0645 Last data filed at 01/11/2024 1956 Gross per 24 hour Intake 500 ml Output 500 ml Net 0 ml Last 6 Weights Wt Readings from Last 6 Encounters: 01/07/24 56.1 kg 12/13/23 55.6 kg CBC Results from last 7 days Lab Units 01/11/24 0439 01/10/24 0415 01/09/24 0409 01/08/24 0943 01/06/24 0631 01/05/24 2323 HEMOGLOBIN g/dL 9.6* 10.8* 9.5* 10.8* 11.4* 12.1 HEMATOCRIT % 28.7* 30.9* 28.2* 32.5* 35.4* 35.7 RBC AUTO x10(12)/L 3.27* 3.58* 3.20* 3.64* 3.88* 4.02 MCV fL 87.8 86.3 88.1 89.3 91.2 88.8 RBC DISTRIBUTION WIDTH AUTO % 12.9 13.0 12.9 13.1 12.9 12.8 PLATELETS AUTO x10(9)/L 297 326 246 261 312 290 WBC x10(9)/L 16.0* 20.4* 18.1* 21.5* 14.5* 13.5* NEUTROPHILS AUTO x10(9)/L -- -- -- 19.18* 12.22* 12.03* General Chemistry Results from last 7 days Lab Units 01/11/24 04301/10/24 0415 01/09/24 0409 SODIUM mmol/L 129* 130* 129* POTASSIUM mmol/L 3.6 3.5* 3.2* CHLORIDE mmol/L 96* 93* 97* BICARBONATE S mmol/L 23 26 22 ANION GAP 10 11 10 BUN mg/dL 13 15 14 CREATININE mg/dL 0.57* 0.51* 0.49* ESTIMATED GFR EGFR mL/min/BSA 89 >90 >90 GLUCOSE S mg/dL 189* 212* 163* CALCIUM mg/dL 7.9* 8.4* 7.9* MAGNESIUM mg/dL 1.9 -- 1.7 GI Results from last 7 days Lab Units 01/11/24 0439 01/10/24 0415 01/10/24 0410 01/09/24 0409 01/08/24 0943 01/06/24 0631 01/05/24 2323 ALBUMIN g/dL 2.7* 3.1* 3.1* < > 3.1* 3.8 4.1 TOTAL PROTEIN g/dL -- -- 5.7* -- 5.8* 6.6 7.0 AST U/L -- -- 27 -- 26 35 41 ALT U/L -- -- 21 -- 17 30 35 ALK PHOS U/L -- -- 106* -- 97 125* 139* BILIRUBIN DIRECT mg/dL -- -- 0.3 -- -- -- 0.3 BILIRUBIN TOTAL mg/dL -- -- 0.7 -- 0.9 0.8 0.6 < > = values in this interval not displayed. INR/PTT Results from last 7 days Lab Units 01/06/24 0028 INR 1.3 Diagnostics ERCP (01/05/2024): - One stent from the biliary tree was seen in the major papilla. - A single segmental biliary stricture was found in the lower third of the main bile duct. The stricture was malignant appearing. - One stent was removed from the biliary tree. - A biliary sphincterotomy was performed. - The biliary tree was swept and sludge was found. - One uncovered metal stent was placed into the common bile duct. CT Abdomen Pelvis with IV Contrast Result Date: 01/06/2024 Impression: 1. Findings consistent with acute uncomplicated interstitial pancreatitis involving thepancreatic head and uncinate process with mild associated inflammation about the proximal duodenum.Findings are likely reactive from recent ERCP. 2. Interval ERCP with new common bile duct stent. Slightly improved intrahepatic and extrahepatic biliary ductal dilation. Similar mild inflammation of the biliary tree. US Gallbladder and or Biliary Ducts Result [...] gallstone versus hypovascular mass. ERCP is recommended. Interpretation of Outside CT Abdomen and or Pelvis Result Date: 12/13/2023 Impression: 1. Redemonstration of distal common bile duct stricture with persistent dilation of thecommon bile duct but less severe intrahepatic biliary duct dilation when compared to later [place] CT performed on the same day. 2. [...] rectum. No pericolonic abscess or bowel obstruction. CT Pancreas Angiogram Triple Phase and Pelvis [...] may be required to more definitively assess. QTc Monitoring Results from last 7 days Lab Units 01/06/24 0239 QTCINT ms 451 PRN Medications acetaminophen, 650 mg, oral, Q6H PRN kkaczlsabuqzh-nqcgmyptwc-bszwgwnr in Lipoderm, 1 g, topical, TID PRN HYDROmorphone, 2 mg, oral, Q4H PRN lidocaine, 1 patch, transdermal, Daily PRN naloxone, 0.1 mg, intravenous, Q5 Min PRN OLANZapine, 2.5 mg, oral, Q6H PRN ondansetron, 4 mg, oral, Q6H PRN OR ondansetron, 4 mg, intravenous, Q6H PRN simethicone, 80 mg, oral, 4x Daily PRN sodium chloride, 10 mL, intravenous, PRN sodium chloride, 3 mL, intravenous, PRN Scheduled Medications aspirin, 81 mg, oral, Daily atorvastatin, 20 mg, oral, Daily with dinner cholecalciferol, 25 mcg, oral, Daily heparin (porcine), 5,000 Units, subcutaneous, Q8H CARMEN insulin aspart, 0-7 Units, subcutaneous, TID melatonin, 3 mg, oral, Daily at bedtime OLANZapine, 2.5 mg, oral, Daily at bedtime polyethylene glycol, 17 g, oral, Daily sennosides-docusate sodium, 1 tablet, oral, BID sodium chloride, 3 mL, intravenous, Q12H [facility] ASSESSMENT / PLAN 83-year-old female admitted with postprocedural pancreatitis following EUS and ERCP sphincterotomy with meta; stenting of malignant appearing biliary stricture in the common bile duct. Management hascentered around pain control, IV fluid administration, and enteral nutrition as tolerated. FNA fromthe pancreas aspirate was nondiagnostic (negative for malignancy). However, the mass is suspicious for most likely pancreatic cancer vs. Ampullary vs. Distal cholangiocarcinoma currently localized tothe pancreas. No evidence of metastatic disease of CT scans. Oncology and palliative care have beenconsulted to discuss next steps with family favoring a palliative approach. CM provided information related to hospice services to the family but did not place referrals per their request. 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 FNA for cytology was obtained but was negative. Most likely this is a nondiagnostic result. Oncology and palliative care have been consulted with family and patient preferring more of a palliative care approach. - Diet advancement as tolerated - IV fluids as needed - Pain control Tylenol 650 mg QID PRN Dilaudid 2mg PO q4h PRN Ice, Heat, Triple cream, Lidocaine patch - Nausea control PO zofran 4 mg q6h PRN. QTc 451 - Oncology consult: family and patient favoring a palliative approach - Palliative care consult: additional information related to hospice services given to family Start olanzapine 2.5 mg PO QHS and 2.5 mg PO q6h PRN Discontinue prochlorperazine # Delirium # Hearing impairment - Treat pain, ensure adequate hydration/PO, regular bowel movements - Minimize tethers, re-orient frequently - Patient's dentures are at home, ask family to bring to the hospital - Speak at a volume patient can hear - Maintain regular sleep/wake pattern # History of CVA (left ICA, 2022) # HLD Continuing aspirin however unclear about the necessity of Plavix. We will need to clarify with patient or consider neurology curbside. - Continue home atorvastatin 20 mg, aspirin 81 mg - Discontinue plavix, per neurology, should have been discontinued 30 days after her CVA (note 01/06) # T2DM # Hyperglycemia s/p dexamethasone No anion gap to suggest DKA. Ketones likely due to ketotic state since patient has been vomiting and not tolerating PO most of today, and was NPO prior to procedure. She received 4 mg dexamethasone hyun-procedurally, likely contributing to her hyperglycemia. - S/p 5 units regular insulin in ED, then POC BG q2h x3 to ensure no overcorrection - Mild correction sliding scale insulin - Then POC BG PRN - Hold home glipizide Baseline Mobility: BMAT Level 4 (Able to stand and walk) Diet: general diet Tubes/lines: PIV VTE prophylaxis: heparin Code status: DNR/DNI. Surrogate Decision Maker: Maia Grajeda Disposition: Home Electronically signed by: Bhumika Joy M.D. 01/12/24 6:45 AM CDT Associated attestation - Aries Osborne M.B., Johanna. - 01/12/2024 11:42 AM CDT I saw and evaluated the patient, participating in the kirk portions of the service. I reviewed the resident, Dr. Joy???s note. I agree with her findings and plan. This morning she is having some mind the dysphagia. Family has requested to talk to palliative care. No vomiting or nausea Assessment/plan: #1 Post ERCP/EUS pancreatitis Ms. Graham is an 83-year-old lady who underwent ERCP and EUS for a biliary stricture and developed pancreatitis following this. She was supportive successfully conservatively. Due to the persistent discomfort a CT scan was done yesterday which showed pancreatitis changes were any fluid collections. We will continue supportive care with the diet advancement. Patient is not keen for feeding tube which is reasonable. We will ask for a video swallow by occupational therapy today to assess her swallowing. 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 Given the fact that this is most likely a malignancy (these malignancies quite desmoplastic) itwas been agree that she would not be a good candidate for Whipple versus chemotherapy. * Amie Butterfield APRN, C.N.P. - 01/11/2024 2:13 PM CDT [facility] Palliative Medicine Progress Note Patient: Charla Graham; 83 y.o.female Location: 280/280-P Hospital Admission Date: 01/05/2024 11:47 PM Hospital Day: 5 Primary Institutional Custodian: Aries Osborne M.B., * Primary Care Provider: ELSEWHERE, PCP SUBJECTIVE Reason for 01/10/24 Consult: decision making support Subjective and Interval Events since our last visit: No acute events. We visited earlier this morning and patient was alone but awake and interactive. Denies nausea/emesis, pain, dyspnea or other questions or concerns. Visit cut short as patient neededto use the bathroom. [place] from RN that patient walked hallway today. RN denies pt s/s concerns. OBJECTIVE Objective DNR/DNI Physical Exam: VS: BP (!) 162/60 (BP Location: Right arm;Upper, Patient Position: Lying) Pulse 85 Temp 37 ??C (Oral) Resp 21 Ht 162.6 cm Wt 56.1 kg SpO2 94% BMI 21.23 kg/m?? I&O: I/O last 3 completed shifts: In: 680 [P.O.:380] Out: 800 [Urine:800] I/O this shift: In: - Out: 400 [Urine:400] General: Reclined in hospital bed in quiet well lit room. No distress noted. Noted her make up is on today. Respiratory: Unlabored respirations. No distress or use of accessory muscles noted. Speaks in sentences. Skin: Warm, dry. Neurologic: Alert and interactive. No myoclonus noted. Psychiatric: Makes eye contact. Conversant. Calm Medications/Diagnostics: Medications and allergies reviewed. Previous lab and radiology results reviewed. Olanzapine 2.5 mg PO qhs started Monday night with PRN available (prn not yet used) Last PRN Zofran and Compazine was Monday morning (Compazine now stopped) Scheduled MiraLAX and Senna. PRN Tylenol used once-twice a day. PRN Dilaudid 2 mg PO used today at 0300. Prior use was once on 01/07. Last IV Dilaudid was 01/06 Dexamethasone dose on 01/04 ASSESSMENT / PLAN Impression/Report/Plan Ms. Charla Graham is an 83 year old female admitted 01/05/24 with post procedural pancreatitis following EUS and ERCP with stenting in the setting of malignant appearing biliary stricture. Palliative Care is consulted for goals of care discussions. #1 Diabetes Mellitus Type 2 Without Complication (HCC) #2 Stricture Biliary (HCC) #3 Infarction Cerebral (HCC) #4 Pancreatitis Post Endoscopic Retrograde Cholangiopancreatography (HCC) #5 Delirium Summary of today's visit: Family was not available at our pt visit today. I was able to speak with unit CHAD Abbott as well as ALVERTO Wylie today. I understand Scar has been in touch with pt dtiona Carvalho and has provided hospice information for future use with plans to head home at dismissal. Patient follow up is uncertain to meat this time. If Ms. Graham's PCP or specialist think she would benefit from outpatient palliative car e clinic follow up in [place], the appointment line can be called or referral placed. Happy to assess and hear from nursing, symptoms well managed today. No new medication recommendations. Will continue qhs Olanzapine at this time. PRN Dilaudid appears helpful and minimally used. At the conclusion of our morning visit, patient had no new questions for us today. Advanced Care Planning: none on file. She is DNR/I during this admission. I would recommend to complete a POLST form prior to dismissal for her home reference. POLST-Form.pdf ([email or web address]) Our interdisciplinary team will continue to follow this patient with you and collaborate on their care. Please the Palliative Medicine Service pager at [phone] ([facility]) for any questions. Reviewed with my IDT Amie Butterfield APRN [facility] Center for Palliative Medicine * Scar Mirza R.N. - 01/11/2024 1:55 PM CDT SUBJECTIVE I spoke with the patient's daughter Maia Connell today on the telephone. I helped to educate Antonia about the differences of palliative and hospice. Maia was understanding of the information. Maia reports that she would like to see how the patient does during the hospital stay. Maia reports that the patient will return home at discharge. Maia requested information on hospice agencies, and did not wish for telephonic case manager to send any hospice referrals at this time. The hospice agencies with phonenumbers, as well as other resources were left in the patient's room per Maia's request. OBJECTIVE Patient hospitalized on [place] 6D. ASSESSMENT / PLAN ASSESSMENT The patient's family is not interested in sending hospice referrals at this time. PLAN Patient will discharge to home when stable for discharge. Transportation provided by family Care management will continue to follow. Scar Mirza R.N. 01/11/24 * Casey Mcintosh, PHerbertT., D.P.T. - 01/11/2024 11:30 AM CDT Physical Therapy Inpatient Treatment SUBJECTIVE Patient's Name: Charla Graham Referring/Attending Provider: Aries Osborne M.B. Reason for Referral: Physical Therapy Evaluate and Treat History of Present Illness: Charla Graham is a 83 y.o. female who was admitted to in [place] on 01/05/2024 for Pancreatitis Post Endoscopic Retrograde Cholangiopancreatography (HCC) [K85.80] Precautions Other Precautions: fall risk; cognition, hard of hearing (no hearing aid) Pain Assessment: Pain not reported during session. Patient/Caregiver Goals: Return to home Subjective Comments: Patient Nursing Family agreed to session. OBJECTIVE Vital Signs Vitals stable per chart review. Outcome Measures: AM-PAC Inpatient Short Form: AM-PAC Basic Mobility (V.2) How much help from another person do you currently need???If the patient hasn't done an activity recently, how much help from another person do you think he/she would needif he/she tried? 1. Turning from your back to your side while in a flat bed without using bedrails?: None 2. Moving from lying on your back to sitting on the side of a flat bed without using bedrails?: None 3. Moving to and from a bed to a chair (including a wheelchair)?: A Little 4. Standing up from a chair using your arms (e.g., wheelchair, or bedside chair)?: None 5. To walk in hospital room?: A Little 6. Climbing 3-5 steps with a railing?: A Little [facility] Basic Mobility (V.2) Raw Score: 21 [facility] Basic Mobility (V.2) Standardized Score: 45.55 Interpretation: Based on scoring guidelines using the raw score value: Those going to home had an average score at or above 18 Those going to facility had an average score at or below 17 Clinicians answer the [facility] Inpatient Short Form based on observed patient activity and/or clinical judgement (ie. patient can be scored without physically performing each activity) Therapeutic Interventions: SUPINE <> SIT: Assistance Level: Supervision of 1 Device: bedrail Assistance/Cueing: verbal for Sequencing Delivery: instructed and assessed SIT <> STAND: Assistance Level: Supervision of 1 Device: gait belt and front wheeled walker Surface: Bed and Toilet Assistance/Cueing: verbal for Upper extremity placement Delivery: instructed and assessed GAIT: Distance: 40 meters Assistance Level:Supervision of 1 Device: gait belt and front wheeled walker Quality: decreased gait speed, forward flexed posture Assistance/Cueing:verbal and tactile for Forward gaze, Placement within the walker, Upright posture, and Walker Navigation Delivery: instructed and assessed Comments: Ambulation tolerated well. Mildly kyphotic posture improved with cueing. No gross instability or uriel losses of balance noted. STAIRS: 3 steps with right handrail Assistance Level: Supervision/Stand by Assistance Navigation Pattern: Ascending: step to Descending: step to Intervention provided: Proper sequencing Education : The patient/family educated on safe transfer techniques with functional mobility/activity. The patient's status was discussed and the following coordination of care occurred with the RN Patient was left in bed at end of session with call light in reach, all needs met and questions answered. Assessment Discharge Therapy Needs - PT: Ongoing skilled physical therapy (While hospitalized) Skilled therapy can include physical therapy provided by home health, outpatient clinic, or a post-acute facility. The location of these services is determined by the patient's care team in partnership with patient/family. Level of Care Needed - PT: Assistance with transfers (Comment), Assistance with walking and moving around the home, Assistance with stairs, Physical assistance needed Patient states she has 2 front wheeled walkers Barriers to Discharge Home: Current functional status, Fall risk From a physical therapy perspective, the level of care above has been recommended for Ms. Graham after hospital discharge. This level of care is based on her functional abilities during today's session. This may change throughout the hospital course and will be updated as appropriate. Clinical Impression: Patient able to progress mobility today, initiating stairs as per home set-up. Per EMR, goals of care are ongoing. Patient is motivated to return home. At this time, recommend assistance x 1 for stair climbing and supervision for other upright mobility with front wheeled walker. Patient will continue to benefit from acute PT while hospitalized. Pending care goals, patient may benefit from ongoingskilled therapy intervention after hospital dismissal. Rehab potential: Ms. Graham has Good potential to achieve established physical therapy goals within the time frame outlined below. Progress: Progressing toward goals, Slow progress, medical status limitations Plan PT Plan Comments: Encourage ambulation, progress activity as able, stairs. Discharge planning. Functional Goals: PT Inpatient Goals PT Goal #1: Independent in bed mobility without hopsital features, to return home alone safely PT Goal #1 Status: Progressing PT Goal #2: Transfers and ambulation independent to modified independent with least restrictive device for safety to return home alone. PT Goal #2 Status: Progressing PT Goal #3: Contact guard assistance for 5 steps up/down to enter/leave home safely, with one or two rails. PT Goal #3 Status: Progressing Treatment Plan: Plan: Continue with current plan PT Amount: 1 visit per day PT Frequency: 5 times per week PT Inpatient Duration : Until goals are met or hospital discharge Requires Inpatient Follow-Up: Yes PT - Next Inpatient Appointment: 01/12/24 Patient agrees with the plan of care and goals. Treatment interventions may include: Treatment/Interventions: Therapeutic exercise, Therapeutic functional activity, Neuromuscular re-education, Gait training Billing: Time Spent with Patient Therapeutic Interventions Therapeutic Activity (min): 25 min Time Tracking Total Timed Units (min): 25 min Total Treatment Time (min): 25 min Casey Mcintosh P.T., D.P.T. * Librado Rascon Jr., M.D., M.B.A. - 01/11/2024 10:02 AM CDT Gastroenterology A service progress note 83-year-old female admitted with postprocedural pancreatitis following EUS and ERCP sphincterotomy with stenting of malignant appearing biliary stricture. Management has centered around pain control,IV fluid administration, and enteral nutrition as tolerated. Interim events: No acute events overnight OBJECTIVE Vitals Temperature: [36.4 ??C-36.8 ??C] 36.4 ??C Heart Rate: [73-83] 83 Resp Rate: [14-24] 20 Blood Pressure: (162)/(60) 162/60 SpO2: [92 %-96 %] 94 % Pulse Rate: [73-84] 84 Physical Exam In no acute distress. Alert and oriented. Abdomen soft, nondistended, tender to deep palpation overthe right upper quadrant, no rebound tenderness. Regular rate and rhythm, no murmurs. Breathing comfortably on room air. No evidence of peripheral edema. Warm and well perfused. Ins & Outs Intake/Output Summary (Last 24 hours) at 01/11/2024 1002 Last data filed at 01/11/2024 0947 Gross per 24 hour Intake 300 ml Output 800 ml Net -500 ml Last 6 Weights Wt Readings from Last 6 Encounters: 01/07/24 56.1 kg 12/13/23 55.6 kg CBC Results from last 7 days Lab Units 01/11/24 0439 01/10/24 0415 01/09/24 0409 01/08/24 0943 01/06/24 0631 01/05/24 2323 HEMOGLOBIN g/dL 9.6* 10.8* 9.5* 10.8* 11.4* 12.1 HEMATOCRIT % 28.7* 30.9* 28.2* 32.5* 35.4* 35.7 RBC AUTO x10(12)/L 3.27* 3.58* 3.20* 3.64* 3.88* 4.02 MCV fL 87.8 86.3 88.1 89.3 91.2 88.8 RBC DISTRIBUTION WIDTH AUTO % 12.9 13.0 12.9 13.1 12.9 12.8 PLATELETS AUTO x10(9)/L 297 326 246 261 312 290 WBC x10(9)/L 16.0* 20.4* 18.1* 21.5* 14.5* 13.5* NEUTROPHILS AUTO x10(9)/L -- -- -- 19.18* 12.22* 12.03* General Chemistry Results from last 7 days Lab Units 01/11/2443801/10/2441401/09/24 0409 SODIUM mmol/L 129* 130* 129* POTASSIUM mmol/L 3.6 3.5* 3.2* CHLORIDE mmol/L 96* 93* 97* BICARBONATE S mmol/L 23 26 22 ANION GAP 10 11 10 BUN mg/dL 13 15 14 CREATININE mg/dL 0.57* 0.51* 0.49* ESTIMATED GFR EGFR mL/min/BSA 89 >90 >90 GLUCOSE S mg/dL 189* 212* 163* CALCIUM mg/dL 7.9* 8.4* 7.9* MAGNESIUM mg/dL 1.9 -- 1.7 GI Results from last 7 days Lab Units 01/11/2443801/10/2441401/10/24 04101/09/24 0409 01/08/24 0943 01/06/24 0631 01/05/24 2323 ALBUMIN g/dL 2.7* 3.1* 3.1* < > 3.1* 3.8 4.1 TOTAL PROTEIN g/dL -- -- 5.7* -- 5.8* 6.6 7.0 AST U/L -- -- 27 -- 26 35 41 ALT U/L -- -- 21 -- 17 30 35 ALK PHOS U/L -- -- 106* -- 97 125* 139* BILIRUBIN DIRECT mg/dL -- -- 0.3 -- -- -- 0.3 BILIRUBIN TOTAL mg/dL -- -- 0.7 -- 0.9 0.8 0.6 < > = values in this interval not displayed. INR/PTT Results from last 7 days Lab Units 01/06/24 [address] Abdomen Pelvis with IV Contrast Result Date: 01/06/2024 Impression: 1. Findings consistent with acute uncomplicated interstitial pancreatitis involving thepancreatic head and uncinate process with mild associated inflammation about the proximal duodenum.Findings are likely reactive from recent ERCP. 2. Interval ERCP with new common bile duct stent. Slightly improved intrahepatic and extrahepatic biliary ductal dilation. Similar mild inflammation of the biliary tree. US Gallbladder and or Biliary Ducts Result [...] gallstone versus hypovascular mass. ERCP is recommended. Interpretation of Outside CT Abdomen and or Pelvis Result Date: 12/13/2023 Impression: 1. Redemonstration of distal common bile duct stricture with persistent dilation of thecommon bile duct but less severe intrahepatic biliary duct dilation when compared to later [place] CT performed on the same day. 2. [...] rectum. No pericolonic abscess or bowel obstruction. CT Pancreas Angiogram Triple Phase and Pelvis [...] may be required to more definitively assess. QTc Monitoring Results from last 7 days Lab Units 01/06/24 0239 QTCINT ms 451 PRN Medications acetaminophen, 650 mg, oral, Q6H PRN blyvkzilqfrgt-eyzlzdvcax-jhucumin in Lipoderm, 1 g, topical, TID PRN HYDROmorphone, 2 mg, oral, Q4H PRN lidocaine, 1 patch, transdermal, Daily PRN naloxone, 0.1 mg, intravenous, Q5 Min PRN OLANZapine, 2.5 mg, oral, Q6H PRN ondansetron, 4 mg, oral, Q6H PRN OR ondansetron, 4 mg, intravenous, Q6H PRN simethicone, 80 mg, oral, 4x Daily PRN sodium chloride, 10 mL, intravenous, PRN sodium chloride, 3 mL, intravenous, PRN Scheduled Medications aspirin, 81 mg, oral, Daily atorvastatin, 20 mg, oral, Daily with dinner cholecalciferol, 25 mcg, oral, Daily heparin (porcine), 5,000 Units, subcutaneous, Q8H CARMEN insulin aspart, 0-7 Units, subcutaneous, TID melatonin, 3 mg, oral, Daily at bedtime OLANZapine, 2.5 mg, oral, Daily at bedtime polyethylene glycol, 17 g, oral, Daily hubtpjmni-ocwztg-btjobipnp, 1 packet, oral, Q4H While awake sennosides-docusate sodium, 1 tablet, oral, BID sodium chloride, 3 mL, intravenous, Q12H [facility] ASSESSMENT / PLAN 83-year-old female admitted with postprocedural pancreatitis following EUS and ERCP sphincterotomy with stenting of malignant appearing biliary stricture. Management has centered around pain control,IV fluid administration, and enteral nutrition as tolerated. Of note, procedural bedside preliminary pathology concerning for adenocarcinoma. PT/OT/CM consulted. Summary of today's plan: -we are awaiting disposition plan for patient based on her clinical status and goals of care with family. 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 FNA for cytology was obtained, and in-room cytopathology confirmed the presence of adenocarcinoma. Final cytology pending. - Diet advancement as tolerated - IV fluids as needed - Pain control Tylenol 650 mg QID PRN Dilaudid 2mg PO q4h PRN Ice, Heat, Triple cream, Lidocaine patch - Nausea control PO zofran 4 mg q6h PRN. QTc 451 Second line: compazine 5 mg PO or IV q6h PRN - Oncology consult: family and patient favoring a palliative approach - Palliative care consult # Delirium # Hearing impairment - Treat pain, ensure adequate hydration/PO, regular bowel movements - Minimize tethers, re-orient frequently - Patient's dentures are at home, ask family to bring to the hospital - Speak at a volume patient can hear - Maintain regular sleep/wake pattern # History of CVA (left ICA, 2022) # HLD Continuing aspirin however unclear about the necessity of Plavix. We will need to clarify with patient or consider neurology curbside. - Continue home atorvastatin 20 mg, aspirin 81 mg - Discontinue plavix, per neurology, should have been discontinued 30 days after her CVA (note 01/06) # T2DM # Hyperglycemia s/p dexamethasone No anion gap to suggest DKA. Ketones likely due to ketotic state since patient has been vomiting and not tolerating PO most of today, and was NPO prior to procedure. She received 4 mg dexamethasone hyun-procedurally, likely contributing to her hyperglycemia. - S/p 5 units regular insulin in ED, then POC BG q2h x3 to ensure no overcorrection - Mild correction sliding scale insulin - Then POC BG PRN - Hold home glipizide Baseline Mobility: BMAT Level 4 (Able to stand and walk) Diet: general diet Tubes/lines: PIV VTE prophylaxis: heparin Code status: DNR/DNI. Surrogate Decision Maker: Child, Maia Connell Disposition: Home Electronically signed by: Librado Rascon Jr., M.D., M.B.A. 01/11/24 10:02 AM CDT * Aries Osborne M.B., B.Chir. - 01/11/2024 9:30 AM CDT I agree with the history, physical examination and evaluation as described by Dr. Rascon CT scan shows no fluid collections just pancreatitis. She is feeling somewhat better. We will arrange for her to advance her diet. Hopefully will be able to dismiss her soon. Assessment/plan: #1 Post ERCP/EUS pancreatitis Ms. Graham is an 83-year-old lady who underwent ERCP and EUS for a biliary stricture and developed pancreatitis following this. She was supportive successfully conservatively. Due to the persistent discomfort a CT scan was done yesterday which showed pancreatitis changes were any fluid collections. We will continue supportive care with the diet advancement. Patient is not keen for feeding tube which is reasonable #2 Malignant-appearing biliary stricture with a pancreatic head mass This has been sampled and biopsies are unrevealing for malignancy and she met up with Medical Oncology. Given the fact that this is most likely a malignancy (these malignancies quite desmoplastic) itwas been agree that she would not be a good candidate for [facility] versus chemotherapy. * Gustavo Restrepo O.T., O.TShakira - 01/10/2024 2:40 PM CDT Occupational Therapy [facility] Inpatient Treatment SUBJECTIVE Patient's Name: Charla Graham Referring/Attending Provider: Aries Osborne M.B. Reason for Referral: Occupational Therapy Evaluation and Treatment History of Present Illness: Charla Graham is a 83 y.o. female who was admitted to in [place] on 01/05/2024 for Pancreatitis Post Endoscopic Retrograde Cholangiopancreatography (HCC) [K85.80]. Precautions Other Precautions: fall risk; cognition, hard of hearing (no hearing aid) Pain Assessment: Pain not reported during session. Subjective Comments: Agreeable to therapy session. Patient greeted in bathroom and agreeable to therapy session. Team Communication: The patient's status was discussed and coordination of care occurred with RN OBJECTIVE Vital Signs: Vitals monitored throughout session; within normal ranges. Outcome Measures: AM-[facility] Inpatient Short Form: Putting on and taking off regular lower body clothing?: A Little Putting on and taking off regular upper body clothing?: A Little Taking care of personal grooming such as brushing teeth?: A Little Bathing (including washing, rinsing, drying)?: A Little Toileting, which includes using toilet, bedpan, or urinal?: None Eating meals?: None Daily Activities Raw Score (max 24): 20 Daily Activities Standardized Score: 42.03 Interpretation: Based on scoring guidelines using the raw score value: Those going to home had an average score at or above 18 Those going to facility had an average score at or below 17 Clinicians answer the [facility] Inpatient Short Form based on observed patient activity and/or clinical judgement (ie. patient can be scored without physically performing each activity) Cognition: Will further assess and monitor as warranted Therapeutic Interventions: ACTIVITIES OF DAILY LIVING: LOWER BODY DRESSING - Assist Level: Contact Guard Assist, Maximal Assist - Patient Location: Chair - LB Dressing Item: socks, pants - Therapist Delivery: assessed, instructed, educated - Assist/Cues: verbal, tactile, and visual for technique, figure four technique, safety - patient completes donning of pants with contact guard assist. Patient requires max assist for donning bilateral socks. Patient doff bilateral socks independently TOILETING - Assist Level: Supervision/Set-up - Patient Location: Toilet - Activity: clothing management, pericare - Therapist Delivery: assessed, instructed, educated - Assist/Cues: verbal for safety FUNCTIONAL TRANSFERS: SIT to STAND - Assist Level: Contact Guard Assist - Equipment: front wheeled walker and gait belt - Surface: Chair, Toilet - Therapist Delivery: assessed, instructed, educated - Assist/Cues: verbal, tactile, and visual for technique, proper hand placement, safety STAND to SIT - Assist Level: Contact Guard Assist - Equipment: front wheeled walker and gait belt - Surface: Chair, Toilet - Therapist Delivery: assessed, instructed, educated - Assist/Cues: verbal, tactile, and visual for technique, sequencing, proper hand placement FUNCTIONAL MOBILITY: Mobility performed to practice community distances with supervision/stand by assistance and front wheeled walker and gait belt Education/Training Provided: Provided education on role of occupational therapy in the acute setting. Collaborated with patient and/or family on goals and plan of care. Functional Transfers: - Provided instruction and cues during functional sit to/from stand transfers, including body alignment to surface, appropriate hand placement, and optimal placement of extremities to optimize safetyand technique. LB Dressing: - Patient instructed on dressing compensatory strategies and aids to assist with don/doff process. Emphasized don/doff strategies including figure four technique. . Toileting - Patient instructed on accurate positioning and modifications for toileting skills with hygiene care and clothing management. Education and recommendations provided on options including toilet hygiene aid and/or toilet seat modifications. Activity Recommendations During Hospitalization: Patient educated on importance of activity and mobility to improve pulmonary function/hygiene, activity tolerance, strength, and overall well-being while in the hospital setting. - Eat ALL meals in chair - Active engagement in daily self-care routine (oral cares, face washing, etc.) - Active engagement in leisure tasks as appropriate/safe (reading, music, games/cards, etc.){ - Maintain typical day/night routine and incorporate sleep hygiene strategies - Ambulate/transfer into chair 3-5x/day Patient was left in bedside chair at end of session with call light in reach, all needs met and questions answered. Assessment Discharge Therapy Needs - OT: Ongoing skilled occupational therapy (pending hospital progress) Skilled therapy can include occupational therapy provided in home health, outpatient or post-acute facility. The location of these services is determined by patient's care team in partnership with patient/family. Barriers to Discharge Home: Current functional status Recommended Adaptive Equipment - OT: Other (Comment) (ongoing assessment) Level of Care Needed - OT: Assistance with toileting, Assistance with toilet/shower transfers, Assistance with showering/bathing, Assistance with meal preparation, Assistance with transportation, Assistance with housekeeping, Assistance with shopping Clinical Impression: Ms. Graham is a pleasant 83-year-old female agreeable to occupational therapy treatment on this date.Patient is currently transfer with contact guard assist demonstrating good power production and lower extremity and balance. Patient effectively uses front wheeled walker for community distance functionally ambulation at supervision level. Patient completed toileting task independently including transfer clothing management and Hyun care. Patient also Don pants with contact guard assist, doff socks with supervision and requires max assist to Don socks. Patient does report using sock aid at homefor donning socks. Currently, patient is below functional baseline and would continue to benefit from ongoing occupational therapy in the inpatient acute care setting to further address functional deficits and achieve therapy goals. Plan OT Plan Comments: Tier 2 cognitive assessment (ie. SLUMS), grooming standing at sink; Functional Goals: OT Goal #1: Patient will perform toilet transfer and hygiene with modified independence to return to prior level of function. OT Goal #1 Status: Achieved OT Goal #2: Patient will perform grooming while standing at the sink with modified independence to return to prior level of function. OT Goal #2 Status: Ongoing OT Goal #3: Patient will perform full body dressing, including retrieval of clothing with modified independence to return to prior level of function. OT Goal #3 Status: Progressing OT Goal #4: Patient will participate in cognitive assessment for safe dismissal planning. OT Goal #4 Status: Ongoing Progress: Progressing toward goals Rehab potential: Ms. Graham has good potential to achieve established occupational therapy goals within the time frame outlined below. OT Frequency: OT Amount: 1 visit per day OT Frequency: 5 times per week OT Inpatient Duration : Until goals are met or hospital discharge Requires Inpatient OT Follow-Up: Yes OT - Next Inpatient Appointment: 01/11/24 Plan: Continue with current plan Treatment interventions may include: Treatment Interventions: Therapeutic exercise, Therapeutic functional activity, Self-care/home management, Cognitive skills training Occupational Therapy Attestation Statement: Patient agrees with the plan of care and goals. Billing: Time Spent with Patient Therapeutic Interventions Home Management Training (min): 36 min Time Tracking Total Timed Units (min): 36 min Total Treatment Time (min): 36 min Gustavo Restrepo O.T., O.T.Aleta * Nereida Go P.T., D.P.THerbert - 01/10/2024 2:13 PM CDT 01/10/24 1413 Reason Therapy Missed Reason Therapy Missed Receiving other care Patient working with other provider at time of attempt. Per EMR, patient may be transitioning to comfort-focused cares. Will continue to follow for PT to clarify mobility-related goals of care and progress as indicated. Nereida Go P.T., D.P.T. * Bhumika Joy M.D. - 01/10/2024 6:35 AM CDT Gastroenterology A service progress note 83-year-old female admitted with postprocedural pancreatitis following EUS and ERCP sphincterotomy with stenting of malignant appearing biliary stricture. Management has centered around pain control,IV fluid administration, and enteral nutrition as tolerated. Of note, procedural bedside preliminary pathology concerning for adenocarcinoma. Interim events: Afebrile. BP 150s/70s. HR in the 80s-90s. Hgb: 10.8, Plt: 326, Leuk: 20.4 Na: 130, K: 3.5, Creatinine: 0.51, Phos: 2.4 Total bili: 0.7, direct bili: 0.3, ALT: 21, AST: 27, Alk Phos: 106 Continues to advance diet as tolerated. Met with oncology yesterday. Patient and family valuing more of a palliative approach. No Dilaudid required yesterday for pain. No acute events overnight. Patient had 3 episodes of emesis overnight which appeared to be food. Still complaining of some nonspecific abdominal pain and food intolerance. No other new concerns. OBJECTIVE Vitals Temperature: [36.2 ??C-37.5 ??C] 37.2 ??C Heart Rate: [88-99] 97 Resp Rate: [16-22] 17 Blood Pressure: (135-181)/(48-88) 164/62 SpO2: [92 %-95 %] 93 % Pulse Rate: [82-98] 98 Physical Exam In no acute distress. Alert and oriented. Abdomen soft, nondistended, tender to deep palpation overthe right upper quadrant, no rebound tenderness. Regular rate and rhythm, no murmurs. Breathing comfortably on room air. No evidence of peripheral edema. Warm and well perfused. Ins & Outs Intake/Output Summary (Last 24 hours) at 01/10/2024 0635 Last data filed at 01/09/2024 1800 Gross per 24 hour Intake 440 ml Output -- Net 440 ml Last 6 Weights Wt Readings from Last 6 Encounters: 01/07/24 56.1 kg 12/13/23 55.6 kg CBC Results from last 7 days Lab Units 01/10/24 0415 01/09/24 40801/08/2494201/06/24 0631 01/05/24 2323 HEMOGLOBIN g/dL 10.8* 9.5* 10.8* 11.4* 12.1 HEMATOCRIT % 30.9* 28.2* 32.5* 35.4* 35.7 RBC AUTO x10(12)/L 3.58* 3.20* 3.64* 3.88* 4.02 MCV fL 86.3 88.1 89.3 91.2 88.8 RBC DISTRIBUTION WIDTH AUTO % 13.0 12.9 13.1 12.9 12.8 PLATELETS AUTO x10(9)/L 326 246 261 312 290 WBC x10(9)/L 20.4* 18.1* 21.5* 14.5* 13.5* NEUTROPHILS AUTO x10(9)/L -- -- 19.18* 12.22* 12.03* General Chemistry Results from last 7 days Lab Units 01/10/2441401/09/2440801/08/24 09 SODIUM mmol/L 130* 129* 127* POTASSIUM mmol/L 3.5* 3.2* 3.2* CHLORIDE mmol/L 93* 97* 93* BICARBONATE S mmol/L 26 22 22 ANION GAP 11 10 12 BUN mg/dL 15 14 17 CREATININE mg/dL 0.51* 0.49* 0.51* ESTIMATED GFR EGFR mL/min/BSA >90 >90 >90 GLUCOSE S mg/dL 212* 163* 270* CALCIUM mg/dL 8.4* 7.9* 8.3* MAGNESIUM mg/dL -- 1.7 -- GI Results from last 7 days Lab Units 01/10/2441401/09/2440801/08/2494201/06/24 0631 01/05/24 2323 ALBUMIN g/dL 3.1* 2.9* 3.1* 3.8 4.1 TOTAL PROTEIN g/dL -- -- 5.8* 6.6 7.0 AST U/L -- -- 26 35 41 ALT U/L -- -- 17 30 35 ALK PHOS U/L -- -- 97 125* 139* BILIRUBIN DIRECT mg/dL -- -- -- -- 0.3 BILIRUBIN TOTAL mg/dL -- -- 0.9 0.8 0.6 INR/PTT Results from last 7 days Lab Units 01/06/24 [address] Abdomen Pelvis with IV Contrast Result Date: 01/06/2024 Impression: 1. Findings consistent with acute uncomplicated interstitial pancreatitis involving thepancreatic head and uncinate process with mild associated inflammation about the proximal duodenum.Findings are likely reactive from recent ERCP. 2. Interval ERCP with new common bile duct stent. Slightly improved intrahepatic and extrahepatic biliary ductal dilation. Similar mild inflammation of the biliary tree. US Gallbladder and or Biliary Ducts Result [...] gallstone versus hypovascular mass. ERCP is recommended. Interpretation of Outside CT Abdomen and or Pelvis Result Date: 12/13/2023 Impression: 1. Redemonstration of distal common bile duct stricture with persistent dilation of thecommon bile duct but less severe intrahepatic biliary duct dilation when compared to later [place] performed on the same day. 2. [...] rectum. No pericolonic abscess or bowel obstruction. CT Pancreas Angiogram Triple Phase and Pelvis [...] may be required to more definitively assess. QTc Monitoring Results from last 7 days Lab Units 01/06/24 0239 QTCINT ms 451 PRN Medications czeftgnibkqnm-lrcsqggkxz-dqbdnsfg in Lipoderm, 1 g, topical, TID PRN calcium carbonate, 200 mg of calcium, oral, TID PRN HYDROmorphone, 2 mg, oral, Q4H PRN lidocaine, 1 patch, transdermal, Daily PRN naloxone, 0.1 mg, intravenous, Q5 Min PRN ondansetron, 4 mg, oral, Q6H PRN prochlorperazine, 5 mg, oral, Q6H PRN OR prochlorperazine Edisylate, 5 mg, intravenous, Q6H PRN simethicone, 80 mg, oral, 4x Daily PRN sodium chloride, 10 mL, intravenous, PRN sodium chloride, 3 mL, intravenous, PRN Scheduled Medications acetaminophen, 650 mg, oral, Q6H aspirin, 81 mg, oral, Daily atorvastatin, 20 mg, oral, Daily with dinner cholecalciferol, 25 mcg, oral, Daily heparin (porcine), 5,000 Units, subcutaneous, Q8H CARMEN insulin aspart, 0-7 Units, subcutaneous, TID melatonin, 3 mg, oral, Daily at bedtime polyethylene glycol, 17 g, oral, Daily sennosides-docusate sodium, 1 tablet, oral, BID sodium chloride, 3 mL, intravenous, Q12H CARMEN ASSESSMENT / PLAN 83-year-old female admitted with postprocedural pancreatitis following EUS and ERCP sphincterotomy with stenting of malignant appearing biliary stricture. Management has centered around pain control,IV fluid administration, and enteral nutrition as tolerated. Of note, procedural bedside preliminary pathology concerning for adenocarcinoma. PT/OT/CM consulted. 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 FNA for cytology was obtained, and in-room cytopathology confirmed the presence of adenocarcinoma. Final cytology pending. - Diet advancement as tolerated - IV fluids as needed - Pain control Tylenol 650 mg QID PRN Dilaudid 2mg PO q4h PRN Ice, Heat, Triple cream, Lidocaine patch - Nausea control PO zofran 4 mg q6h PRN. QTc 451 Second line: compazine 5 mg PO or IV q6h PRN - Oncology consult: family and patient favoring a palliative approach - Palliative care consult # Delirium # Hearing impairment - Treat pain, ensure adequate hydration/PO, regular bowel movements - Minimize tethers, re-orient frequently - Patient's dentures are at home, ask family to bring to the hospital - Speak at a volume patient can hear - Maintain regular sleep/wake pattern # History of CVA (left ICA, 2022) # HLD Continuing aspirin however unclear about the necessity of Plavix. We will need to clarify with patient or consider neurology curbside. - Continue home atorvastatin 20 mg, aspirin 81 mg - Discontinue plavix, per neurology, should have been discontinued 30 days after her CVA (note 01/06) # T2DM # Hyperglycemia s/p dexamethasone No anion gap to suggest DKA. Ketones likely due to ketotic state since patient has been vomiting and not tolerating PO most of today, and was NPO prior to procedure. She received 4 mg dexamethasone hyun-procedurally, likely contributing to her hyperglycemia. - S/p 5 units regular insulin in ED, then POC BG q2h x3 to ensure no overcorrection - Mild correction sliding scale insulin - Then POC BG PRN - Hold home glipizide Baseline Mobility: BMAT Level 4 (Able to stand and walk) Diet: general diet Tubes/lines: PIV VTE prophylaxis: heparin Code status: DNR/DNI. Surrogate Decision Maker: Child, Maia Connell Disposition: Home Electronically signed by: Bhumika Joy M.D. 01/10/24 6:35 AM CDT Associated attestation - Aries Osborne M.B., BHerbertChir. - 01/10/2024 11:32 AM CDT I saw and evaluated the patient, participating in the kirk portions of the service. I reviewed the resident, Dr Joy's note5 from today,01/10/2024. I agree with her findings and plan. Appreciate the input from Medical Oncology. We have elected to go down the palliative care route. This is most likely a malignancy. Patient does not want to have further testing to prove it with another EUS. She has had some nausea and vomiting. Assessment/plan: #1 Post ERCP/EUS pancreatitis Ms. Graham is an 83-year-old lady who underwent ERCP and EUS for a biliary stricture and developed pancreatitis following this. She was supportive successfully conservatively. Unfortunately today she has not done so well. We will do a CT scan to see if there bili complications follow up the pancreatitis. #2 Malignant-appearing biliary stricture with a pancreatic head mass This has been sampled and biopsies are unrevealing for malignancy and she met up with Medical Oncology. Given the fact that this is most likely a malignancy (these malignancies quite desmoplastic) itwas been agree that she would not be a good candidate for [facility] versus chemotherapy. Will ask palliative Care to help * Casey Mcintosh P.T., D.P.T. - 01/09/2024 2:59 PM CDT 01/09/24 1459 Reason Therapy Missed Reason Therapy Missed Receiving other care * Freida Hernandez, Pharm.D., R.Ph., [facility] - 01/09/2024 9:28 AM CDT Pharmacist Progress Note Reason for admission: abd pain after ERCP/EUS with biopsy PMH: DM2, stroke, recent cholangitis in setting of likely malignant biliary stricture OBJECTIVE Home medications: per h Held: glipizide Discontinue: Plavix (completed per neuro) New: pain control VTE prophylaxis: heparin SQ Estimated Creatinine Clearance: 74.3 mL/min (A) (by C-G formula based on SCr of 0.49 mg/dL (L)). ASSESSMENT / PLAN Post-ERCP pancreatitis - off IVF now, pain control with Tylenol, Dilaudid PRN PO (last dose 01/07), lido patch. Biopsy pathology- likely adenocarcinoma Hx CVA 01/2023 - continues ASA only per neuro. Continue home Lipitor. DM2 - HbA1c 7.6 on 12/11. holding home glipizide. has mild sliding scale insulin. Delirium: new melatonin Freida Hernandez Pharm.D., R.Ph., BCPS * Bhumika Joy M.D. - 01/09/2024 6:36 AM CDT Gastroenterology A service progress note 83-year-old female admitted with postprocedural pancreatitis following EUS and ERCP sphincterotomy with stenting of malignant appearing biliary stricture. Management has centered around pain control,IV fluid administration, and enteral nutrition as tolerated. Of note, procedural bedside preliminary pathology concerning for adenocarcinoma. Interim events: Afebrile. BP 150s/70s. HR in the 80s-90s. Hgb: 9.5, Plt: 246, Leuk: 18.1 Na: 129, K: 3.2, Creatinine: 0.49, Ma.7, Phos: 1.2, Osmolality: 274 Continues to advance diet as tolerated. Required 4 mg of oral Dilaudid and 0.4 mg of IV Dilaudid for pain yesterday. Treated large stool burden seen on abdominal xray with oral lactulose yesterday with 3-5 BMs afterwards. No acute events overnight. Patient feels well this morning. Her abdominal pain improved after her bowel movements yesterday. No nausea or vomiting. No new concerns. OBJECTIVE Vitals Temperature: [36.4 ??C-36.9 ??C] 36.9 ??C Heart Rate: [82-100] 86 Resp Rate: [12-23] 18 Blood Pressure: (148-153)/(56-76) 153/56 SpO2: [90 %-95 %] 94 % Pulse Rate: [82-97] 84 Physical Exam In no acute distress. Alert and oriented. Abdomen soft, nondistended, tender to deep palpation overthe right upper quadrant, no rebound tenderness. Regular rate and rhythm, no murmurs. Breathing comfortably on room air. No evidence of peripheral edema. Warm and well perfused. Ins & Outs Intake/Output Summary (Last 24 hours) at 01/09/2024 0636 Last data filed at 01/08/2024 1854 Gross per 24 hour Intake 20 ml Output 150 ml Net -130 ml Last 6 Weights Wt Readings from Last 6 Encounters: 01/07/24 56.1 kg 12/13/23 55.6 kg CBC Results from last 7 days Lab Units 01/09/2440801/08/2443 01/06/24 0631 01/05/24 2323 HEMOGLOBIN g/dL 9.5* 10.8* 11.4* 12.1 HEMATOCRIT % 28.2* 32.5* 35.4* 35.7 RBC AUTO x10(12)/L 3.20* 3.64* 3.88* 4.02 MCV fL 88.1 89.3 91.2 88.8 RBC DISTRIBUTION WIDTH AUTO % 12.9 13.1 12.9 12.8 PLATELETS AUTO x10(9)/L 246 261 312 290 WBC x10(9)/L 18.1* 21.5* 14.5* 13.5* NEUTROPHILS AUTO x10(9)/L -- 19.18* 12.22* 12.03* General Chemistry Results from last 7 days Lab Units 01/09/2440801/08/2443 01/06/24 0631 SODIUM mmol/L 129* 127* 135 POTASSIUM mmol/L 3.2* 3.2* 4.5 CHLORIDE mmol/L 97* 93* 100 BICARBONATE S mmol/L 22 22 24 ANION GAP 10 12 11 BUN mg/dL 14 17 17 CREATININE mg/dL 0.49* 0.51* 0.71 ESTIMATED GFR EGFR mL/min/BSA >90 >90 83 GLUCOSE S mg/dL 163* 270* 184* CALCIUM mg/dL 7.9* 8.3* 9.3 MAGNESIUM mg/dL 1.7 -- -- GI Results from last 7 days Lab Units 01/09/2440801/08/24 0943 01/06/24 0631 01/05/24 2323 ALBUMIN g/dL 2.9* 3.1* 3.8 4.1 TOTAL PROTEIN g/dL -- 5.8* 6.6 7.0 AST U/L -- 26 35 41 ALT U/L -- 17 30 35 ALK PHOS U/L -- 97 125* 139* BILIRUBIN DIRECT mg/dL -- -- -- 0.3 BILIRUBIN TOTAL mg/dL -- 0.9 0.8 0.6 INR/PTT Results from last 7 days Lab Units 01/06/24 [address] Abdomen Pelvis with IV Contrast Result Date: 01/06/2024 Impression: 1. Findings consistent with acute uncomplicated interstitial pancreatitis involving thepancreatic head and uncinate process with mild associated inflammation about the proximal duodenum.Findings are likely reactive from recent ERCP. 2. Interval ERCP with new common bile duct stent. Slightly improved intrahepatic and extrahepatic biliary ductal dilation. Similar mild inflammation of the biliary tree. US Gallbladder and or Biliary Ducts Result [...] gallstone versus hypovascular mass. ERCP is recommended. Interpretation of Outside CT Abdomen and or Pelvis Result Date: 12/13/2023 Impression: 1. Redemonstration of distal common bile duct stricture with persistent dilation of thecommon bile duct but less severe intrahepatic biliary duct dilation when compared to later [place] performed on the same day. 2. [...] rectum. No pericolonic abscess or bowel obstruction. CT Pancreas Angiogram Triple Phase and Pelvis [...] may be required to more definitively assess. QTc Monitoring Results from last 7 days Lab Units 01/06/24 0239 QTCINT ms 451 PRN Medications hkgnksxyrauht-qndimfiufn-tyswvall in Lipoderm, 1 g, topical, TID PRN HYDROmorphone, 0.4 mg, intravenous, Q1H PRN HYDROmorphone, 2 mg, oral, Q4H PRN lidocaine, 1 patch, transdermal, Daily PRN naloxone, 0.1 mg, intravenous, Q5 Min PRN ondansetron, 4 mg, oral, Q6H PRN prochlorperazine, 5 mg, oral, Q6H PRN OR prochlorperazine Edisylate, 5 mg, intravenous, Q6H PRN sodium chloride, 10 mL, intravenous, PRN sodium chloride, 3 mL, intravenous, PRN Scheduled Medications acetaminophen, 650 mg, oral, Q6H aspirin, 81 mg, oral, Daily atorvastatin, 20 mg, oral, Daily with dinner cholecalciferol, 25 mcg, oral, Daily heparin (porcine), 5,000 Units, subcutaneous, Q8H CARMEN lactulose, 10 g, oral, Q4H melatonin, 3 mg, oral, Daily at bedtime polyethylene glycol, 17 g, oral, Daily sennosides-docusate sodium, 1 tablet, oral, BID sodium chloride, 3 mL, intravenous, Q12H CARMEN ASSESSMENT / PLAN 83-year-old female admitted with postprocedural pancreatitis following EUS and ERCP sphincterotomy with stenting of malignant appearing biliary stricture. Management has centered around pain control,IV fluid administration, and enteral nutrition as tolerated. Of note, procedural bedside preliminary pathology concerning for adenocarcinoma. PT/OT/CM consulted. 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 FNA for cytology was obtained, and in-room cytopathology confirmed the presence of adenocarcinoma. Final cytology pending. - Diet advancement as tolerated - IV fluids as needed - Pain control Tylenol 650 mg QID PRN Dilaudid 2mg PO q4h PRN Ice, Heat, Triple cream, Lidocaine patch - Nausea control PO zofran 4 mg q6h PRN. QTc 451 Second line: compazine 5 mg PO or IV q6h PRN # Delirium # Hearing impairment - Treat pain, ensure adequate hydration/PO, regular bowel movements - Minimize tethers, re-orient frequently - Patient's dentures are at home, ask family to bring to the hospital - Speak at a volume patient can hear - Maintain regular sleep/wake pattern # History of CVA (left ICA, 2022) # HLD Continuing aspirin however unclear about the necessity of Plavix. We will need to clarify with patient or consider neurology curbside. - Continue home atorvastatin 20 mg, aspirin 81 mg - Discontinue plavix, per neurology, should have been discontinued 30 days after her CVA (note 01/06) # T2DM # Hyperglycemia s/p dexamethasone No anion gap to suggest DKA. Ketones likely due to ketotic state since patient has been vomiting and not tolerating PO most of today, and was NPO prior to procedure. She received 4 mg dexamethasone hyun-procedurally, likely contributing to her hyperglycemia. - S/p 5 units regular insulin in ED, then POC BG q2h x3 to ensure no overcorrection - Mild correction sliding scale insulin - Then POC BG PRN - Hold home glipizide Baseline Mobility: BMAT Level 4 (Able to stand and walk) Diet: general diet Tubes/lines: PIV VTE prophylaxis: heparin Code status: DNR/DNI. Surrogate Decision Maker: Nicci, Maia Connell Disposition: Home Electronically signed by: Bhumika Joy M.D. 01/09/24 6:36 AM CDT Associated attestation - Aries Osborne M.B., BSotero. - 01/09/2024 9:30 AM CDT saw and evaluated the patient, participating in the kirk portions of the service. I reviewed the resident, Dr Joy's note5 from today,01/09/2024. I agree with her findings and plan. Pain has improved. She would large bowel yesterday. She tolerated her lunch and dinner yesterday. If all goes well as she can be dismissed with a follow up with Medical Oncology Assessment/plan: #1 Post ERCP/EUS pancreatitis Ms. Graham is an 83-year-old lady who underwent ERCP and EUS for a biliary stricture and developed pancreatitis following this. She was supportive successfully conservatively. We will encourage p.o. intake and arrange for dismissal she is doing well later on today. #2 Malignant-appearing biliary stricture with a pancreatic head mass This has been sampled and biopsies are pending and we will arrange for follow up with Medical Oncology * Aries Osborne M.B., BSotero. - 01/08/2024 9:55 AM CDT Images from the original note were not included. I saw and evaluated the patient, participating in the kirk portions of the service. I reviewed the resident, Dr Joy's note. I agree with her findings and plan. Continues to have some abdominal pain but this is more different than yesterday. It is more liver. Abdominal x-ray shows a large colonic stool burden especially the side. Enema was given yesterday which will affect. We will give another enema and mobilized patient to see how things go. but exam demonstrates a soft abdomen. Assessment/plan: #1 Post ERCP/EUS pancreatitis Ms. Graham is an 83-year-old lady who underwent ERCP and EUS for a biliary stricture and developed pancreatitis following this. She will be supported with IV fluids still and advance diet as tolerated.If pain persists then imaging will be considered. Spoke with daughter and if she is still having poor intake tomorrow or the day after we may consider [place] tube placement. 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 - 01/08/2024 6:08 AM CDT Gastroenterology A service progress note 83-year-old female admitted with postprocedural pancreatitis following EUS and ERCP sphincterotomy with stenting of malignant appearing biliary stricture. Management has centered around pain control,IV fluid administration, and enteral nutrition as tolerated. Of note, procedural bedside preliminary pathology concerning for adenocarcinoma. Interim events: Afebrile. BP 150s/70s. HR in the 90s. 1.7 L LR given for maintenance fluids given poor oral intake. Continues to advance diet as tolerated. Required 4 mg of oral Dilaudid and 0.4 mg of IV Dilaudid for pain yesterday. Met with CM yesterday, and patient and family expressing the desire that the patient return home when medically ready where she lives independently but family can assist. Assessed by PT/OT: PT recommending ongoing skilled therapy while in the hospital for functional status and fall risk, OT recommending ongoing skilled therapy depending on hospital course Neurology recommending stopping Plavix and continuing Aspirin 81 mg indefinitely for secondary strop prevention. Received a tap water enema yesterday as she has not had a BM since 01/04 with no effect. No acute events overnight. Patient complains of RLQ abdominal pain this AM. No nausea or vomiting. Denies other concerns. OBJECTIVE Vitals Temperature: [36.8 ??C-37.2 ??C] 36.8 ??C Heart Rate: [92-99] 92 Resp Rate: [15-20] 20 SpO2: [90 %-93 %] 93 % Pulse Rate: [92-99] 92 Physical Exam In no acute distress. Alert and oriented. Abdomen soft, nondistended, tender to palpation over the right lower quadrant, no rebound tenderness. Regular rate and rhythm, no murmurs. Breathing comfortably on room air. No evidence of peripheral edema. Warm and well perfused. Ins & Outs Intake/Output Summary (Last 24 hours) at 01/08/2024 0608 Last data filed at 01/08/2024 0255 Gross per 24 hour Intake 2085 ml Output 600 ml Net 1485 ml Last 6 Weights Wt Readings from Last 6 Encounters: 01/07/24 56.1 kg 12/13/23 55.6 kg CBC Results from last 7 days Lab Units 01/06/24 0631 01/05/24 2323 HEMOGLOBIN g/dL 11.4* 12.1 HEMATOCRIT % 35.4* 35.7 RBC AUTO x10(12)/L 3.88* 4.02 MCV fL 91.2 88.8 RBC DISTRIBUTION WIDTH AUTO % 12.9 12.8 PLATELETS AUTO x10(9)/L 312 290 WBC x10(9)/L 14.5* 13.5* NEUTROPHILS AUTO x10(9)/L 12.22* 12.03* General Chemistry Results from last 7 days Lab Units 01/06/24 0631 01/05/24 2323 SODIUM P mmol/L -- 131* SODIUM mmol/L 135 -- POTASSIUM mmol/L 4.5 -- CHLORIDE P mmol/L -- 96* CHLORIDE mmol/L 100 -- BICARBONATE PLASMA mmol/L -- 23 BICARBONATE S mmol/L 24 -- ANION GAP P -- 12 ANION GAP 11 -- BUN P mg/dL -- 22* BUN mg/dL 17 -- CREATININE mg/dL 0.71 0.68 ESTIMATED GFR EGFR mL/min/BSA 83 85 GLUCOSE P mg/dL -- 329* GLUCOSE S mg/dL 184* -- CALCIUM P mg/dL -- 9.6 CALCIUM mg/dL 9.3 -- GI Results from last 7 days Lab Units 01/06/24 0631 01/05/24 2323 ALBUMIN g/dL 3.8 4.1 TOTAL PROTEIN g/dL 6.6 7.0 AST U/L 35 41 ALT U/L 30 35 ALK PHOS U/L 125* 139* BILIRUBIN DIRECT mg/dL -- 0.3 BILIRUBIN TOTAL mg/dL 0.8 0.6 INR/PTT Results from last 7 days Lab Units 01/06/24 [address] Abdomen Pelvis with IV Contrast Result Date: 01/06/2024 Impression: 1. Findings consistent with acute uncomplicated interstitial pancreatitis involving thepancreatic head and uncinate process with mild associated inflammation about the proximal duodenum.Findings are likely reactive from recent ERCP. 2. Interval ERCP with new common bile duct stent. Slightly improved intrahepatic and extrahepatic biliary ductal dilation. Similar mild inflammation of the biliary tree. US Gallbladder and or Biliary Ducts Result [...] gallstone versus hypovascular mass. ERCP is recommended. Interpretation of Outside CT Abdomen and or Pelvis Result Date: 12/13/2023 Impression: 1. Redemonstration of distal common bile duct stricture with persistent dilation of thecommon bile duct but less severe intrahepatic biliary duct dilation when compared to later [place] CT performed on the same day. 2. [...] rectum. No pericolonic abscess or bowel obstruction. CT Pancreas Angiogram Triple Phase and Pelvis [...] may be required to more definitively assess. QTc Monitoring Results from last 7 days Lab Units 01/06/24 0239 QTCINT ms 451 PRN Medications acetaminophen, 650 mg, oral, Q6H PRN jdlakswmrohti-dzlnptaubc-djjiktvm in Lipoderm, 1 g, topical, TID PRN HYDROmorphone, 0.4 mg, intravenous, Q1H PRN HYDROmorphone, 2 mg, oral, Q4H PRN lidocaine, 1 patch, transdermal, Daily PRN naloxone, 0.1 mg, intravenous, Q5 Min PRN ondansetron, 4 mg, oral, Q6H PRN prochlorperazine, 5 mg, oral, Q6H PRN OR prochlorperazine Edisylate, 5 mg, intravenous, Q6H PRN sodium chloride, 10 mL, intravenous, PRN sodium chloride, 3 mL, intravenous, PRN Scheduled Medications aspirin, 81 mg, oral, Daily atorvastatin, 20 mg, oral, Daily with dinner cholecalciferol, 25 mcg, oral, Daily heparin (porcine), 5,000 Units, subcutaneous, Q8H CARMEN melatonin, 3 mg, oral, Daily at bedtime polyethylene glycol, 17 g, oral, Daily sennosides-docusate sodium, 1 tablet, oral, BID sodium chloride, 3 mL, intravenous, Q12H CARMEN ASSESSMENT / PLAN 83-year-old female admitted with postprocedural pancreatitis following EUS and ERCP sphincterotomy with stenting of malignant appearing biliary stricture. Management has centered around pain control,IV fluid administration, and enteral nutrition as tolerated. Of note, procedural bedside preliminary pathology concerning for adenocarcinoma. PT/OT/CM consulted. 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 FNA for cytology was obtained, and in-room cytopathology confirmed the presence of adenocarcinoma. Final cytology pending. - Diet advancement as tolerated - IV fluids as needed - Pain control Tylenol 650 mg QID PRN Dilaudid 2mg PO q4h PRN IV dilaudid 0.4mg q2h PRN - Nausea control PO zofran 4 mg q6h PRN. QTc 451 Second line: compazine 5 mg PO or IV q6h PRN # Delirium # Hearing impairment - Treat pain, ensure adequate hydration/PO, regular bowel movements - Minimize tethers, re-orient frequently - Patient's dentures are at home, ask family to bring to the hospital - Speak at a volume patient can hear - Maintain regular sleep/wake pattern # History of CVA (left ICA, 2022) # HLD Continuing aspirin however unclear about the necessity of Plavix. We will need to clarify with patient or consider neurology curbside. - Continue home atorvastatin 20 mg, aspirin 81 mg - Discontinue plavix, per neurology, should have been discontinued 30 days after her CVA (note 01/06) # T2DM # Hyperglycemia s/p dexamethasone No anion gap to suggest DKA. Ketones likely due to ketotic state since patient has been vomiting and not tolerating PO most of today, and was NPO prior to procedure. She received 4 mg dexamethasone hyun-procedurally, likely contributing to her hyperglycemia. - S/p 5 units regular insulin in ED - POC BG q2h x3 to ensure no overcorrection - Then POC BG PRN - Hold home glipizide Baseline Mobility: BMAT Level 4 (Able to stand and walk) Diet: general diet Tubes/lines: PIV VTE prophylaxis: heparin Code status: DNR/DNI. Discussed and patient expressed wish to pass naturally. Verify with family Alejandro whether this is consistent with previously expressed wishes, since she is delirious. Surrogate Decision Maker: Nicci Maia Connell Disposition: Home Electronically signed by: Bhumika Joy M.D. 01/08/24 6:08 AM CDT * Kyle Wong M.D., Ph.D., M.D., Ph.D. - 01/07/2024 10:37 AM CDT Neurology Consult Service Brief Communications/Curbside Note Hospital neurology consult service was contacted by gastroenterology service A regarding utility/safety of continuation of dual antiplatelet therapy for this patient. This is an 83-year-old female who was admitted in the setting of postprocedural pancreatitis following EUS and ERCP sphincterotomy with stenting secondary to malignant appearing biliary stricture with concern for possible PDAC to explain patient's presentation, given bedside preliminary pathology concerning for adenocarcinomatous features. Of note, primary service informs me that the patient had an acute CVA in December of 2022 for which she underwent treatment at [facility]; discharge summary from that hospital course that is available in care everywhere describes a left frontoparietal embolic appearing CVA that appears to have been attributed to symptomatic left ICA stenosis/disease. In light of this, patient was started on dual antiplatelet therapy with low-dose aspirin 81 mg and Plavix 75 mg for a 30 day course, after which patient was instructed to switch over to aspirin 81 mg only indefinitely for stroke secondary prevention. She was also started on atorvastatin appropriately in the setting of hyperlipidemia. Interestingly, the primary service informs me that the patient has stayed on dual antiplatelet therapy since this discharge from the hospital in December of 2022, and inquires regarding safety/utility of discontinuation of Plavix as documented in patient's discharge summary from December of 2022. She has nothad outpatient neurology follow up since then. I note that the recommendation to utilize a time limited trial of dual antiplatelet therapy (in this case, 30 days) arises from findings in the so-called POINT and CHANCE trials; however, given that the patient also presented with symptomatic left ICA disease as well as imaging evidence consistent with likely intracranial atherosclerotic disease, findings from the SAMMPRIS trial with recommendations for a 90 day course of dual antiplatelet therapy could have also been applicable here. Regardless, the patient has been on both aspirin and Plavix for almost a year at this time. As such, the overall calculus appears to be that the dual antiplatelet therapy regimen is not providing further stroke protective benefits with ongoing increased risk of hemorrhagic complications. As such, as previously recommended during the patient's discharge from [facility] in December of 2022, I would recommend that the patient stop Plavix therapy at this time, and continue with the aspirin monotherapy at 81 mg daily for ongoing indefinite stroke secondary prevention. Of note, given concern for possible malignant etiology to explain patient's presentation, with preliminary pathology demonstrating a denocarcinoma, should there ever be a concern for hypercoagulability of malignancy, patient would benefit from anticoagulation initiation, at which time antiplatelet therapy should be stopped. Patient case was discussed with [facility] safety consultant Dr. Woods. Please reach out to us at pager [phone] for any additional questions or concerns. Recommendations: - Stop Plavix; continue ASA 81 mg daily indefinitely for stroke secondary prevention. - No role for outpatient Neurology follow up at this time. Kyle Wong M.D., Ph.D. PGY-3 Adult Neurology * Aries Osborne M.B., BSotero. - 01/07/2024 10:02 AM CDT I saw and evaluated the patient, participating in the kirk portions of the service. I reviewed the resident, Dr Joy's note. I agree with her findings and plan. Continues to have some abdominal pain but exam demonstrates a soft abdomen. Assessment/plan: #1 Post ERCP/EUS pancreatitis Ms. Graham is an 83-year-old lady who underwent ERCP and EUS for a biliary stricture and developed pancreatitis following this. She will be supportively with IV fluids still and advance diet as tolerated. If pain persists then imaging will be considered. 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 - 01/07/2024 6:44 AM CDT Gastroenterology A service progress note 83-year-old female admitted with postprocedural pancreatitis following EUS and ERCP sphincterotomy with stenting of malignant appearing biliary stricture. Management has centered around pain control,IV fluid administration, and enteral nutrition as tolerated. Of note, procedural bedside preliminary pathology concerning for adenocarcinoma. Interim events: Afebrile. BP 160s/80s. HR in the 90s. Continues to advance diet as tolerated. Required 4 mg of oral Dilaudid and 0.4 mg of IV Dilaudid for pain yesterday. No acute events overnight. Patient continues to have achy abdominal pain that is a 5/10 in severity. It is located in the center of her abdomen and radiates throughout. No nausea or vomiting. Overallnot eating much yet. Denies fevers or chills. No other new concerns. OBJECTIVE Vitals Temperature: [37.1 ??C-37.7 ??C] 37.2 ??C Heart Rate: [91-107] 93 Resp Rate: [17-22] 21 Blood Pressure: (160)/(73) 160/73 SpO2: [90 %-94 %] 90 % Weight: [54.8 kg] 54.8 kg BMI (Calculated): [20.7 kg/m??] 20.7 kg/m?? Pulse Rate: [91-107] 93 Physical Exam In no acute distress. Alert and oriented. Abdomen soft, nondistended, tender to palpation over the epigastric and right and left upper quadrant. Regular rate and rhythm, no murmurs. Breathing comfortably on room air. No evidence of peripheral edema. Warm and well perfused. Ins & Outs Intake/Output Summary (Last 24 hours) at 01/07/2024 0644 Last data filed at 01/07/2024 0418 Gross per 24 hour Intake 1771.67 ml Output 600 ml Net 1171.67 ml Last 6 Weights Wt Readings from Last 6 Encounters: 01/07/24 54.8 kg 12/13/23 55.6 kg CBC Results from last 7 days Lab Units 01/06/24 0631 01/05/24 2323 HEMOGLOBIN g/dL 11.4* 12.1 HEMATOCRIT % 35.4* 35.7 RBC AUTO x10(12)/L 3.88* 4.02 MCV fL 91.2 88.8 RBC DISTRIBUTION WIDTH AUTO % 12.9 12.8 PLATELETS AUTO x10(9)/L 312 290 WBC x10(9)/L 14.5* 13.5* NEUTROPHILS AUTO x10(9)/L 12.22* 12.03* General Chemistry Results from last 7 days Lab Units 01/06/24 0631 01/05/24 2323 SODIUM P mmol/L -- 131* SODIUM mmol/L 135 -- POTASSIUM mmol/L 4.5 -- CHLORIDE P mmol/L -- 96* CHLORIDE mmol/L 100 -- BICARBONATE PLASMA mmol/L -- 23 BICARBONATE S mmol/L 24 -- ANION GAP P -- 12 ANION GAP 11 -- BUN P mg/dL -- 22* BUN mg/dL 17 -- CREATININE mg/dL 0.71 0.68 ESTIMATED GFR EGFR mL/min/BSA 83 85 GLUCOSE P mg/dL -- 329* GLUCOSE S mg/dL 184* -- CALCIUM P mg/dL -- 9.6 CALCIUM mg/dL 9.3 -- GI Results from last 7 days Lab Units 01/06/24 0631 01/05/24 2323 ALBUMIN g/dL 3.8 4.1 TOTAL PROTEIN g/dL 6.6 7.0 AST U/L 35 41 ALT U/L 30 35 ALK PHOS U/L 125* 139* BILIRUBIN DIRECT mg/dL -- 0.3 BILIRUBIN TOTAL mg/dL 0.8 0.6 INR/PTT Results from last 7 days Lab Units 01/06/24 [address] Abdomen Pelvis with IV Contrast Result Date: 01/06/2024 Impression: 1. Findings consistent with acute uncomplicated interstitial pancreatitis involving thepancreatic head and uncinate process with mild associated inflammation about the proximal duodenum.Findings are likely reactive from recent ERCP. 2. Interval ERCP with new common bile duct stent. Slightly improved intrahepatic and extrahepatic biliary ductal dilation. Similar mild inflammation of the biliary tree. US Gallbladder and or Biliary Ducts Result [...] gallstone versus hypovascular mass. ERCP is recommended. Interpretation of Outside CT Abdomen and or Pelvis Result Date: 12/13/2023 Impression: 1. Redemonstration of distal common bile duct stricture with persistent dilation of thecommon bile duct but less severe intrahepatic biliary duct dilation when compared to later [place] performed on the same day. 2. [...] rectum. No pericolonic abscess or bowel obstruction. CT Pancreas Angiogram Triple Phase and Pelvis [...] may be required to more definitively assess. QTc Monitoring Results from last 7 days Lab Units 01/06/24 0239 QTCINT ms 451 PRN Medications acetaminophen, 650 mg, oral, Q6H PRN HYDROmorphone, 0.4 mg, intravenous, Q1H PRN HYDROmorphone, 2 mg, oral, Q4H PRN naloxone, 0.1 mg, intravenous, Q5 Min PRN ondansetron, 4 mg, oral, Q6H PRN polyethylene glycol, 17 g, oral, Daily PRN prochlorperazine, 5 mg, oral, Q6H PRN OR prochlorperazine Edisylate, 5 mg, intravenous, Q6H PRN sodium chloride, 10 mL, intravenous, PRN sodium chloride, 3 mL, intravenous, PRN Scheduled Medications aspirin, 81 mg, oral, Daily atorvastatin, 20 mg, oral, Daily with dinner cholecalciferol, 25 mcg, oral, Daily heparin (porcine), 5,000 Units, subcutaneous, Q8H CARMEN melatonin, 3 mg, oral, Daily at bedtime sennosides-docusate sodium, 1 tablet, oral, BID sodium chloride, 3 mL, intravenous, Q12H CARMEN ASSESSMENT / PLAN 83-year-old female admitted with postprocedural pancreatitis following EUS and ERCP sphincterotomy with stenting of malignant appearing biliary stricture. Management has centered around pain control,IV fluid administration, and enteral nutrition as tolerated. Of note, procedural bedside preliminary pathology concerning for adenocarcinoma. 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 FNA for cytology was obtained, and in-room cytopathology confirmed the presence of adenocarcinoma. Final cytology pending. - Diet advancement as tolerated - Pain control Tylenol 650 mg QID PRN Dilaudid 2mg PO q4h PRN IV dilaudid 0.4mg q2h PRN - Nausea control PO zofran 4 mg q6h PRN. QTc 451 Second line: compazine 5 mg PO or IV q6h PRN # Delirium # Hearing impairment - Treat pain, ensure adequate hydration/PO, regular bowel movements - Minimize tethers, re-orient frequently - Patient's dentures are at home, ask family to bring to the hospital - Speak at a volume patient can hear - Maintain regular sleep/wake pattern # History of CVA (left ICA, 2022) # HLD Continuing aspirin however unclear about the necessity of Plavix. We will need to clarify with patient or consider neurology curbside. - Continue home atorvastatin 20 mg, aspirin 81 mg - Discontinue plavix, per neurology, should have been discontinued 30 days after her CVA # T2DM # Hyperglycemia s/p dexamethasone No anion gap to suggest DKA. Ketones likely due to ketotic state since patient has been vomiting and not tolerating PO most of today, and was NPO prior to procedure. She received 4 mg dexamethasone hyun-procedurally, likely contributing to her hyperglycemia. - S/p 5 units regular insulin in ED - POC BG q2h x3 to ensure no overcorrection - Then POC BG PRN - Hold home glipizide Baseline Mobility: BMAT Level 4 (Able to stand and walk) Diet: general diet Tubes/lines: PIV VTE prophylaxis: heparin Code status: DNR/DNI. Discussed and patient expressed wish to pass naturally. Verify with family Alejandro whether this is consistent with previously expressed wishes, since she is delirious. Surrogate Decision Maker: Maia Grajeda Disposition: Home Electronically signed by: Bhumika Joy M.D. 01/07/24 6:44 AM CDT * Tracee Menchaca, R.Ph. - 01/06/2024 2:12 PM CDT Pharmacist Progress Note Reason for admission: abd pain after ERCP/EUS with biopsy PMH: DM2, stroke, recent cholangitis in setting of likely malignant biliary stricture OBJECTIVE Home medications: per [facility] Held: Plavix, glipizide VTE prophylaxis: heparin SQ Estimated Creatinine Clearance: 50 mL/min (by C-G formula based on SCr of 0.71 mg/dL). ASSESSMENT / PLAN Post-ERCP pancreatitis - treating with IV fluid, PRN Tylenol, Dilaudid, Zofran, Compazine. Hx CVA 01/2023 - unclear why still on Plavix and aspirin. Holding Plavix for now. Continue home Lipitor. DM2 - HbA1c 7.6 on 12/11. holding home glipizide. Glucose elevated, likely due to pre-procedure dexamethasone given 01/04. Consider adding mild sliding scale insulin. Liss HodgePh. * Tracee Menchaca R.Ph. - 01/06/2024 2:11 PM CDT Admission Medication History Note Adherence issues: No concerns Medication list source: Family member Prior to Admission Medications A LIPOIC [id number] ORAL Take 1 capsule by mouth daily. acetaminophen (TYLENOL) 325 mg tablet Take 650 mg by mouth every 6 (six) hours as needed for pain. aspirin [address] tablet Take 81 mg by mouth daily. atorvastatin (LIPITOR) 20 mg tablet Take 1 tablet by mouth daily with dinner. B complex-vitamin (SUPER B-50) capsule Take 1 tablet by mouth daily. cholecalciferol, vitamin D3, 25 mcg (1,000 Unit) tablet Take 25 mcg by mouth daily. clopidogreL (Plavix) 75 mg tablet Take 1 tablet (75 mg total) by mouth daily. d-mannose (AZO D-Mannose) 500 mg capsule Take 2 capsules by mouth daily. glipiZIDE (GLUCOTROL) 5 mg tablet Take 5 mg by mouth 2 (two) times a day before breakfast and dinner. sennosides-docusate sodium (SENOKOT-S) 8.6-50 mg per tablet Take 1 tablet by mouth 2 (two) times a day. * Librado Rascon Jr., M.D., M.B.A. - 01/06/2024 1:57 PM CDT Gastroenterology A service progress note 83-year-old female admitted with postprocedural pancreatitis following EUS and ERCP sphincterotomy with stenting of malignant appearing biliary stricture. Management has centered around pain control,IV fluid administration, and enteral nutrition as tolerated. Of note, procedural bedside preliminary pathology concerning for adenocarcinoma. Interim events Continue to advance diet as tolerated As required 4 mg of oral Dilaudid and 0.4 mg of IV fentanyl. Labs are stable with mild anemia 11.4 and leukocytosis 14.5 with no evidence of fever. SUBJECTIVE No acute concerns this morning discussed plan with family. OBJECTIVE Vitals Temperature: [36.5 ??C-36.6 ??C] 36.6 ??C Heart Rate: [93-104] 104 Resp Rate: [14-20] 20 Blood Pressure: (138-165)/(66-102) 163/84 SpO2: [92 %-98 %] 94 % Height: [162.6 cm] 162.6 cm Weight: [54.7 kg] 54.7 kg BSA (Calculated - sq m): [1.57 sq meters] 1.57 sq meters BMI (Calculated): [20.7 kg/m??] 20.7 kg/m?? Pulse Rate: [74-104] 104 Physical Exam In no acute distress. Abdomen soft nondistended slightly tender to palpation over the lower mid quadrant. No evidence of peripheral edema. Breathing room air. Ins & Outs Intake/Output Summary (Last 24 hours) at 01/06/2024 1358 Last data filed at 01/06/2024 1100 Gross per 24 hour Intake 1480 ml Output 1000 ml Net 480 ml Last 6 Weights Wt Readings from Last 6 Encounters: 01/06/24 54.7 kg 12/13/23 55.6 kg CBC Results from last 7 days Lab Units 01/06/24 0631 01/05/24 2323 HEMOGLOBIN g/dL 11.4* 12.1 HEMATOCRIT % 35.4* 35.7 RBC AUTO x10(12)/L 3.88* 4.02 MCV fL 91.2 88.8 RBC DISTRIBUTION WIDTH AUTO % 12.9 12.8 PLATELETS AUTO x10(9)/L 312 290 WBC x10(9)/L 14.5* 13.5* NEUTROPHILS AUTO x10(9)/L 12.22* 12.03* General Chemistry Results from last 7 days Lab Units 01/06/24 0631 01/05/24 2323 SODIUM P mmol/L -- 131* SODIUM mmol/L 135 -- POTASSIUM mmol/L 4.5 -- CHLORIDE P mmol/L -- 96* CHLORIDE mmol/L 100 -- BICARBONATE PLASMA mmol/L -- 23 BICARBONATE S mmol/L 24 -- ANION GAP P -- 12 ANION GAP 11 -- BUN P mg/dL -- 22* BUN mg/dL 17 -- CREATININE mg/dL 0.71 0.68 ESTIMATED GFR EGFR mL/min/BSA 83 85 GLUCOSE P mg/dL -- 329* GLUCOSE S mg/dL 184* -- CALCIUM P mg/dL -- 9.6 CALCIUM mg/dL 9.3 -- GI Results from last 7 days Lab Units 01/06/24 0631 01/05/24 2323 ALBUMIN g/dL 3.8 4.1 TOTAL PROTEIN g/dL 6.6 7.0 AST U/L 35 41 ALT U/L 30 35 ALK PHOS U/L 125* 139* BILIRUBIN DIRECT mg/dL -- 0.3 BILIRUBIN TOTAL mg/dL 0.8 0.6 INR/PTT Results from last 7 days Lab Units 01/06/24 [address] Abdomen Pelvis with IV Contrast Result Date: 01/06/2024 Impression: 1. Findings consistent with acute uncomplicated interstitial pancreatitis involving thepancreatic head and uncinate process with mild associated inflammation about the proximal duodenum.Findings are likely reactive from recent ERCP. 2. Interval ERCP with new common bile duct stent. Slightly improved intrahepatic and extrahepatic biliary ductal dilation. Similar mild inflammation of the biliary tree. US Gallbladder and or Biliary Ducts Result [...] gallstone versus hypovascular mass. ERCP is recommended. Interpretation of Outside CT Abdomen and or Pelvis Result Date: 12/13/2023 Impression: 1. Redemonstration of distal common bile duct stricture with persistent dilation of thecommon bile duct but less severe intrahepatic biliary duct dilation when compared to later [place] CT performed on the same day. 2. [...] rectum. No pericolonic abscess or bowel obstruction. CT Pancreas Angiogram Triple Phase and Pelvis [...] may be required to more definitively assess. QTc Monitoring Results from last 7 days Lab Units 01/06/24 0239 QTCINT ms 451 PRN Medications acetaminophen, 650 mg, oral, Q6H PRN HYDROmorphone, 0.4 mg, intravenous, Q1H PRN HYDROmorphone, 2 mg, oral, Q4H PRN naloxone, 0.1 mg, intravenous, Q5 Min PRN ondansetron, 4 mg, oral, Q6H PRN polyethylene glycol, 17 g, oral, Daily PRN prochlorperazine, 5 mg, oral, Q6H PRN OR prochlorperazine Edisylate, 5 mg, intravenous, Q6H PRN sodium chloride, 10 mL, intravenous, PRN sodium chloride, 3 mL, intravenous, PRN Scheduled Medications atorvastatin, 20 mg, oral, Daily with dinner cholecalciferol, 25 mcg, oral, Daily heparin (porcine), 5,000 Units, subcutaneous, Q8H CARMEN melatonin, 3 mg, oral, Daily at bedtime sennosides-docusate sodium, 1 tablet, oral, BID sodium chloride, 3 mL, intravenous, Q12H CARMEN ASSESSMENT / PLAN 83-year-old female admitted with postprocedural pancreatitis following EUS and ERCP sphincterotomy with stenting of malignant appearing biliary stricture. Management has centered around pain control,IV fluid administration, and enteral nutrition as tolerated. 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 FNA for cytology was obtained, and in-room cytopathology confirmed the presence of adenocarcinoma. Final cytology pending. - Diet advancement as tolerated - Pain: dialudid 2mg PO q4h PRN IV dilaudid 0.4mg q2h PRN Tylenol 650 mg QID PRN - Nausea: PO zofran 4 mg q6h PRN. QTc 451 Second line: compazine 5 mg PO or IV q6h PRN # Delirium # Hearing impairment - Treat pain, ensure adequate hydration/PO, regular bowel movements - Minimize tethers, re-orient frequently - Patient's dentures are at home, ask family to bring - Speak at a volume patient can hear # History of CVA (left ICA, 2022) # HLD Continuing aspirin however unclear about the necessity of Plavix. We will need to clarify with patient or consider neurology curbside. - Continue home atorvastatin 20 mg, aspirin 81 mg - Holding plavix and # T2DM # Hyperglycemia s/p dexamethasone No anion gap to suggest DKA. Ketones likely due to ketotic state since patient has been vomiting and not tolerating PO most of today, and was NPO prior to procedure. She received 4 mg dexamethasone hyun-procedurally, likely contributing to her hyperglycemia. - S/p 5 units regular insulin in ED - POC BG q2h x3 to ensure no overcorrection - Then POC BG PRN - Hold home glipizide Baseline Mobility: BMAT Level 4 (Able to stand and walk) Diet: general diet Tubes/lines: PIV VTE prophylaxis: heparin Code status: DNR/DNI. Discussed and patient expressed wish to pass naturally. Verify with family Alejandro whether this is consistent with previously expressed wishes, since she is delirious. Surrogate Decision Maker: Nicci, Maia Connell Disposition: Home #1 Diabetes Mellitus Type 2 Without Complication (HCC) #2 Stricture Biliary (HCC) #3 Infarction Cerebral (HCC) #4 Pancreatitis Post Endoscopic Retrograde Cholangiopancreatography (HCC) #5 Delirium Electronically signed by: Librado Rascon Jr., M.D., M.B.A. 01/06/24 1:58 PM CDT documented in this encounter H&P Notes * Annalisa Diaz M.D. - 01/06/2024 2:36 AM CDT [facility]ST Gastroenterology A Admission Note SUBJECTIVE CHIEF COMPLAINT Abdominal pain HISTORY OF PRESENT ILLNESS Ms. Charla Graham is a 83 y.o. female with history of T2DM, stroke, and recent cholangitis in the setting of likely malignant biliary stricture, who underwent EUS + ERCP today to complete biliary sphincterotomy and FNA. She developed periumbilical abdominal pain, nausea, and vomiting about 5 hours post- procedure and presented to the ED. Recent clinical history is notable for an admission 12/12-12/14 for cholangitis. She underwent ERCP which showed purulence and choledocholithiasis in the CBD, and a plastic stent was placed in a 30 mm stricture of the distal CBD. Suspicion was highest for malignant stricture, and CA 19-9 supported this(elevated at 178). However, because of plavix (stroke history) they did not remove stones or complete sphincterotomy. She received 5 days of antibiotics for treatment of cholangitis and plan was for completion of EUS, ERCP with sphincterotomy, and metal stent placement after plavix was stopped for 7 days. She underwent EUS + ERCP on 01/04, with EUS revealing mass of the pancreas head (1.6 x 1.6 cm). 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 Final cytology pending. Additionally, plastic stent was removed and exchanged with metal stent, sphincterotomy completed, bile ducts swept with sludge cleared. At around 2 pm the same day, she had progressively severe hyun-umbilical abdominal pain, nausea, and four episodes of emesis (non-bloody). The pain worsened after trying to eat (cheese noodles -> emesis, chicken noodle soup -> emesis). She has had no fevers. Her last BM was yesterday morning. In the ED she was hypertensive but hemodynamically stable and afebrile. Hgb 12.1, WBC 13.5, plts 290. CMP notable for Na 131, Cr baseline 0.68, glucose 329, normal T bili, AST, ALT, and mildly elevated alkphos at 139 (previous 265). She was found to have acute pancreatitis on CT and lipase 2948, consistent with post-procedural pancreatitis. She received zofran, fentanyl and morphine 4 mg without adequate analgesia. She is admitted to -A for post-ERCP pancreatitis. Current Outpatient Medications Medication Instructions A LIPOIC [id number] ORAL oral, Daily acetaminophen (TYLENOL) 650 mg, oral, Every 6 hours PRN aspirin 81 mg, oral, Daily atorvastatin (LIPITOR) 20 mg tablet 1 tablet, oral, Daily with dinner B complex-vitamin (SUPER B-50) capsule 1 tablet, oral, Daily blood sugar diagnostic strips (Contour Next Test Strips) Dispense item covered by pt ins.TEST 3 TIMES DAILY. cholecalciferol (vitamin D3) 25 mcg, oral, Daily clopidogreL (PLAVIX) 75 mg, oral, Daily d-mannose (AZO D-Mannose) 500 mg capsule 2 capsules, oral, Daily flash glucose scanning reader (FreeStyle [place] 14 Day [place]) other flash glucose scanning reader (FREESTYLE [place]) other flash glucose sensor (FREESTYLE [place]) kit other glipiZIDE (GLUCOTROL) 2.5-5 mg, oral, 2 times daily before breakfast and dinner, 5 mg in the morning and 2.5 mg in the evening nitrofurantoin (MACRODANTIN) 50 mg, oral, Daily, UTI prevention sennosides-docusate sodium (SENOKOT-S) 8.6-50 mg per tablet 1 tablet, oral, 2 times daily OBJECTIVE VITAL SIGNS Temperature: [35.8 ??C-36.5 ??C] 36.5 ??C Heart Rate: [68-81] 80 Resp Rate: [12-22] 16 Blood Pressure: (103-165)/(55-102) 138/67 SpO2: [93 %-98 %] 97 % Pulse Rate: [69-83] 83 PHYSICAL EXAM Constitutional: female elderly, frail, non-toxic appearing. Resting comfortably in bed. Eyes: EOMI, PERRL, no scleral icterus. ENT: MMM, no oropharyngeal lesions. Edentulous Cardiovascular: RRR, holosystolic murmur loudest at RUSB. No JVD or hepatojugular reflux, no lower extremity edema. Radial and DP pulses 2+ bilaterally. Pulmonary: LCTAB, normal WOB on RA without accessory muscle use. No wheezes, rales, or rhonchi. Abd: Soft, flat, non-distended. Tender at epigastrium and RUQ. No organomegaly appreciated. Neuro: A+Ox2. Self, date, location of [place]. Unable to name hospital or describe why she is here. Able to say days of the week backwards but on the third try. Unable to spell world backwards. Skin: Skin is warm and dry. Cap refill <3s. No rash noted on exposed surfaces. Non-jaundiced. Psychiatric: Euthymic mood and affect. Mildly delirious, with impaired attention and orientation. No hallucinations. DIAGNOSTICS I have reviewed the labs, ECG, and diagnostics from admission. ERCP Post-op Diagnoses: - One stent from the biliary tree was seen in the major papilla. - A single segmental biliary stricture was found in the lower third of the main bile duct. The stricture was malignant appearing. - One stent was removed from the biliary tree. - A biliary sphincterotomy was performed. - The biliary tree was swept and sludge was found. - One uncovered metal stent was placed into the common bile duct. EUS: 1) Mass in the Pancreas Head: Size: 16 x 16 mm Characteristics: Hypoechoic and poorly differentiated Effect: Obstructing the distal bile duct with an indwelling stent Vascular and Metastatic Status: 2) Vascular Invasion: No evidence Metastatic Disease: No evidence on EUS Fine-Needle Aspiration (FNA): 3) Procedure: Obtained with a 25-gauge needle after excluding intervening vessels Result: In-room cytopathology positive for malignancy 4) Additional Findings: Cystic Lesion: Size: 6 x 6 mm in the pancreas body Communication: Connected with a nondilated pancreatic duct in the body CT A/P w/ Contrast IMPRESSION: 1. Findings consistent with acute uncomplicated interstitial pancreatitis involving the pancreatic head and uncinate process. Associated inflammation about the duodenum and colon in the hepatic flexure. 2. Interval ERCP with new common bile duct stent. Stable intrahepatic biliary ductal dilation. ASSESSMENT / PLAN Ms. 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 She is admitted with post-ERCP pancreatitis following EUS with ERCP today, during which sphincterotomy was performed and FNA of pancreatic head lesion. We will manage with IVF, analgesia, anti-emetics, and early enteral nutrition as tolerated. She also has mild delirium, likely due to pain, acute illness, and poor PO in the past 24 hours. She has a history of recurrent UTIs but none seen in her urine. She has few ketones noted in her urine, as well as BG >300, but no metabolic acidosis and thus no DKA. The hyperglycemia is likely due to pre- procedural dexamethasone administration and she is s/p SQ insulin in the ED. 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 - Fluids: 1L LR now, then maintenance fluids @100 cc/h for 15 hours to reach approx 2.5L in 24 hours - Diet advancement as tolerated - Pain: dialudid 2mg PO q4h PRN IV dilaudid 0.4mg q2h PRN Tylenol 650 mg QID PRN - Nausea: PO zofran 4 mg q6h PRN. QTc 451 Second line: compazine 5 mg PO or IV q6h PRN # Delirium # Hearing impairment - Treat pain, ensure adequate hydration/PO, regular bowel movements - Melatonin 3 mg nightly and sleep enhancement if able starting tomorrow - Minimize tethers, re-orient frequently - Patient's dentures are at home, ask family to bring - Speak at a volume patient can hear # History of CVA (left ICA, 2022) # HLD - Continue home atorvastatin 20 mg - Holding plavix and aspirin # T2DM # Hyperglycemia s/p dexamethasone No anion gap to suggest DKA. Ketones likely due to ketotic state since patient has been vomiting and not tolerating PO most of today, and was NPO prior to procedure. She received 4 mg dexamethasone hyun-procedurally, likely contributing to her hyperglycemia. - S/p 5 units regular insulin in ED - POC BG q2h x3 to ensure no overcorrection - Then POC BG PRN - Hold home glipizide Baseline Mobility: BMAT Level 4 (Able to stand and walk) Diet: general diet Tubes/lines: PIV VTE prophylaxis: heparin Code status: DNR/DNI. Discussed and patient expressed wish to pass naturally. Verify with family Alejandro whether this is consistent with previously expressed wishes, since she is delirious. Surrogate Decision Maker: Maia Grajdea Disposition: Home Patient will be staffed in the AM. Dr. Neena Diaz MD Internal Medicine PGY-2 Associated attestation - Aries Osborne M.B., Johanna. - 01/06/2024 10:10 AM CDT I saw and evaluated the patient, participating in the kirk portions of the service. I reviewed the resident, Dr Diaz's note. I agree with her findings and plan. Ms. Graham is an 83-year-old lady who has been admitted for abdominal pain following EUS and ERCP andstenting in the setting of a malignant-appearing biliary stricture. She is evidence of post ERCP pancreatitis with a lipase of greater than 2800. This morning she is feeling somewhat better but is still having some post prandial discomfort. Physical examination demonstrates a elderly appearing woman in no acute distress. Her abdomen is mildly tender especially the right lower quadrant and left upper quadrant. This has improved from yesterday. Assessment/plan: #1 Post ERCP/EUS pancreatitis Ms. Graham is an 83-year-old lady who underwent ERCP and EUS for a biliary stricture and developed pancreatitis following this. She will be supportively with IV fluids and advance diet as tolerated. #2 Malignant-appearing biliary stricture with a pancreatic head mass This has been sampled and biopsies are pending. documented in this encounter Consult Notes * Shandra Warren O.T., [place], [facility] [place] - 01/12/2024 2:25 PM CDT Occupational Therapy Dysphagia Evaluation/Treatment SUBJECTIVE Patient's Name: Charla Graham Referring/Attending Provider: Aries Osborne M.B. Medical Diagnosis: Pancreatitis Post Endoscopic Retrograde Cholangiopancreatography (HCC) [K85.80] Reason for Referral: Reason for Referral: OT Dysphagia Eval and Treat Onset Date: 01/05/24 Payor: MEDICARE / Plan: MEDICARE A AND B / Product Type: Medicare / PERTINENT MEDICAL / SURGICAL HISTORY: Patient Active Problem List Diagnosis Cataract Senile Nuclear Sclerosis Right Cataract Senile Nuclear Sclerosis Left Diabetes Mellitus Type 2 Without Complication (HCC) Stricture Biliary (HCC) Cholangitis Acute (HCC) Abnormal Levels Of Other Serum Enzymes Facial Weakness From Stroke Cerebrovascular Accident Infarction Cerebral (HCC) Occlusion And Stenosis Left Carotid Artery Pancreatitis Post Endoscopic Retrograde Cholangiopancreatography (HCC) Delirium Infection Urinary Tract Personal History Hyperlipidemia Mixed Hemorrhoids Loss Hearing Right Loss Weight Abnormal Murmur Heart Osteoarthritis Postmenopausal Atrophic Vaginitis Presence Of Artificial Hip Joint Bilateral Sciatica Left Solitary Kidney Acquired Stroke ([facility]) Past Surgical History: Procedure Laterality Date CAROTID ARTERY ANGIOPLASTY 2022 EXTRACTION CATARACT WITH INSERTION INTRAOCULAR LENS Right 06/04/2018 Procedure: EXTRACTION CATARACT WITH INSERTION INTRAOCULAR LENS, right eye - Topical/Standard Lens; Surgeon: Mauri Farrell M.D.; Location: [facility] OR EXTRACTION CATARACT WITH INSERTION INTRAOCULAR LENS Left 06/13/2018 Procedure: EXTRACTION CATARACT WITH INSERTION INTRAOCULAR LENS, LEFT EYE- Topical/Standard lens; Surgeon: Mauri Farrell M.D.; Location: [facility] OR JOINT REPLACEMENT ? KIDNEY SURGERY History of Present Illness:History of Present Illness: Ms. Graham is an 83-year-old lady who underwent ERCP and EUS for a biliary stricture and developed pancreatitis following this. Family/Caregiver Present: Yes Patient/Caregiver Goals: to eat and drink comfortably Precautions Other Precautions: fall risk; cognition, hard of hearing (no hearing aid), aspiration OBJECTIVE Respiratory function: Room air Baseline Assessment: Mental Status: Alert Temperature Spikes Noted: No Respiratory Status: Room air Tracheostomy: No History of Intubation: Yes Length of Intubations (days): 0 days Date extubated: 01/05/24 Premorbid Nutrition Method: Oral Premorbid Liquid Diet: IDDSI Level 0 Thin Premorbid/Current Diet: IDDSI Level 7 Regular Premorbid Med Administration: Whole with liquid Current Nutrition Method: NPO Current Med Administration: Whole with liquid Patient Positioning: Upright in chair Baseline Vocal Quality: Other (comment) (reduced volume, occasionally slurred) Volitional Cough: Strong Volitional Swallow: Delayed Clinical Dysphagia: Oral / Motor Dentition: Dentures top, Dentures bottom (but not wearing due to discomfort) Labial ROM: Within Normal Limits (WNL) Labial Symmetry: Within Normal Limits (WNL) Labial Strength: Within Normal Limits (WNL) Lingual ROM: Within Normal Limits (WNL) Velum: (0) Within Normal Limits (WNL) Mandible Strength: (0) Within Normal Limts Facial Symmetry: (0) Within Normal Limits Facial Sensation: intact Clinical Dysphagia Patient Position in Swallow Study: Chair Liquids: Level 0 Thin Solids: Level 4 Puree, Level 7 Regular Level 0 Thin Presentation: Patient / caregiver Airway Protection: (No signs of aspiration) Compensatory Strategies Utilized in Exam: None Level 4 Puree Type of Puree Presented: Applesauce Presentation: Patient / caregiver Airway Protection: (No signs of aspiration) Compensatory Strategies Utilized in Exam: None Level 7 Regular Type of Solid Presented: (Doughnut) Presentation: Patient / caregiver Airway Protection: (No signs of aspiration) Compensatory Strategies Utilized in Exam: None Quality of Life for Eating: Neutral OT dysphagia treatment: Educated patient and/or caregiver on diet recommendations Educated patient and/or caregiver on compensatory techniques Educated patient and/or caregiver on aspiration precautions Team Communication: Primary service was contacted and patient's status was discussed Patient was left in bedside chair at end of session with call light in reach, all needs met and questions answered. Assessment Dysphagia Consult Assessment: Time Dysphagia Assessment Completed: 1424 Clinical Impression: Ms. Graham participated in a clinical bedside dysphagia evaluation on 01/12/2024 to assess safety withoral intake/risks for aspiration. Factors contributing to aspiration risk include: generalized weakness, poor/lack of dentition, and decreased activity tolerance. Dysphagia Clinical Assessment: The patient participated in a clinical dysphagia evaluation this date to assess safety with oral intake/risks for aspiration. The patient is currently maintaining safe oxygen saturations and respirations on room air. Physical examination of the oral mechanism revealedfacial symmetry at rest. Tracheal cartilage in midline and laryngeal rise present on palpation. Oral motor examination of the tongue, lips, cheeks, and jaw was observed to be adequate. Patient/familystated no reported history of oral, pharyngeal, or esophageal dysphagia. Family describes low appetite at baseline with a preference for sweeter foods. Due to nausea, patient has had limited oral intake during hospitalization. When she has been swallowing, she describes pain/discomfort with food getting stuck and gas/bubble in throat. Patient has upper and lower dentures but has not been wearing due to discomfort. Monitored patient swallowing thin liquids, applesauce, and doughnut with no signs of aspiration or complaints of difficulty. Discussed modified diet with patient and family and they would prefer regular diet with plan to self select softer food items. Patient is below their functional baseline with swallowing function and skilled dysphagia services are medically necessary for this patient to safely progress oral intake. DIET RECOMMENDATIONS: Diet Recommendations - Solids: IDDSI Level 7 Regular Diet Recommendations - Liquids: IDDSI Level 0 Thin Recommended Form of Meds: Whole, With liquid, With puree Recommended Aspiration Precautions: -Watch closely for signs of aspiration -Sit upright with all oral intake and when completing oral cares -Eat small bites, take small sips, eat slowly -Minimize talking during meals -Avoid lying down for 30 minutes after meals -Good oral care 3-5 times a day -Eat smaller meals frequently throughout the day Recommended Compensation Techniques/Adaptive Equipment: -Alternate solid food with small amounts of liquids -Requires supervision/assistance Compensations for Cognitive Impairment: -Ensure a calm, distraction free environment -Assistance with feeding should be provided in an unhurried manner -Avoid challenging mixed textures or foods that fall apart (i.e. cold cereals, soups with pieces ofmeat or vegetable, nuts, etc) Positioning Recommendations: -Upright as possible for all oral intake -Remain upright for 30-60 minutes after meals Recommendations for safe oral cares are as follows: -assist needed with partial or full dentures Rehab potential: Ms. Graham has good potential to achieve established occupational therapy goals within the time frame outlined below. Functional Goals and timeframes: Goal #1: Patient will tolerate safe and adequate nutrition and hydration on the least restrictive diet Goal #2: Patient will verbalize and demonstrate understanding of aspiration and aspiration precautions Plan Dysphagia Consult Plan: Patient agrees with the plan of care and goals. Treatment Interventions: Swallow dysfunction treatment OT Dysphagia Duration: Until goals are met or hospital duration OT Dysphagia Amount: 1 visit per day OT Dysphagia Frequency: 4 times per week Inpatient OT Dysphagia Received On Date: 01/12/24 OT - Next Inpatient Dysphagia Appointment: 01/14/24 Plan: Plan of care initiated Re-evaluate: As clinically indicated Treatment interventions may include: Plan for Next Session: Observe a meal, Educate patient and/or caregiver on aspiration precautions, Educate patient and/or caregiver on compensatory techniques Time Spent with Patient Evaluations Clinical Dysphagia Evaluation (min): 15 min Therapeutic Interventions Swallow Dysfunction Treatment (min): 9 min Time Tracking Total Timed Units (min): 20 min Total Treatment Time (min): 24 min For any questions feel free to page OT dysphagia Monday through Monday 7:00am to 4:00pm: Our service pager at [facility]: #[phone] Our service pager at [facility]: #[phone] * Elio Hatfield, ESTHELA, C.N.P., D.N.P. - 01/10/2024 8:37 AM CDTAssociated Order(s): Palliative Care consult (hospital) SUBJECTIVE Palliative Care consult (hospital) Referring Provider: Bhumika Joy M.D. PRIMARY CARE PROVIDER ELSEWHERE, PCP REFERRING SERVICE Attending: Dr. Aries Osborne Service: Gastroenterology A REASON FOR CONSULT Charla Graham is a 83 y.o. female who presents for evaluation of assistance with clarification of goals of care. Per order: Patient with likely pancreatic cancer vs. ampullary vs. distal cholangiocarcinoma: family and patient favoring palliative approach HISTORY OF PRESENT ILLNESS Ms. Charla Graham is an 83 year old female admitted 01/05/24 with post procedural pancreatitis following EUS and ERCP with stenting in the setting of malignant appearing biliary stricture. Palliative Care is consulted for goals of care discussions. I attempted to see Ms. Graham this morning and she greeted us, though fell asleep as we attempted to obtain history. I returned later mid-day when her daughter (Maia) was present. Ms. Graham remained asleep throughout the visit and history was provided by family to the extent possible. Maia shares her mom is an active person who is fiercely independent. She enjoys working in her garden and keeping busy. She had not been feeling like herself for a couple months and reportedly lost 20 lbs. Upon diagnosis of the pancreas head mass, Maia shares her mom was debating whether to pursue biopsy in the first place. She is someone who avoids medical interventions and going to the doctor. She ultimately decided to proceed with biopsy so that she could have more information, though did not think she would pursue any treatment if it was cancer. Oncology consult was completed yesterday (01/08) and while the in-room cytopathology at the time of biopsy confirmed adenocarcinoma, the finalcytology was negative for malignancy. From a symptom standpoint, Charla has continued to struggle with abdominal pain and over the last24 hours had worsening nausea with multiple emesis. She is receiving PRN ondansetron and prochlorperazine. Hydromorphone 2 mg PO is available as needed though she has not taken since 01/07. CT abdomenordered for today. The following portions of the patient's history were reviewed and updated as appropriate: Allergies, Current Medications, Medical History, Surgical History, Family History, and Social History Medications Scheduled Medication Ordered Dose/Rate, Route, Frequency Last Action acetaminophen tablet 650 mg (TYLENOL) 650 mg, oral, Q6H Given, 650 mg at 01/[address] tablet 81 mg 81 mg, oral, Daily Given, 81 mg at 01/09 829 atorvastatin tablet 20 mg (LIPITOR) 20 mg, oral, Daily with dinner Given, 20 mg at 01/08 172 cholecalciferol (vitamin D3) tablet 25 mcg 25 mcg, oral, Daily Given, 25 mcg at 01/09 829 heparin (porcine) injection 5,000 Units 5,000 Units, SC, Q8H CARMEN Given, 5,000 Units at 01/09 0500 insulin aspart U-100 injection 0-7 Units (NovoLOG FlexPen) 0-7 Units, SC, TID Given, 2 Units at 01/09 0815 melatonin tablet 3 mg 3 mg, oral, Daily at bedtime Given, 3 mg at 01/08 2125 polyethylene glycol powder packet 17 g (MIRALAX) 17 g, oral, Daily Given, 17 g at 01/06 09 potassium chloride IVPB 10 mEq 10 mEq, IV, Q1H New Bag, 10 mEq at 01/09 0755 sennosides-docusate sodium 8.6-50 mg per tablet 1 tablet (SENOKOT-S) 1 tablet, oral, BID Given, 1 tablet at 01/09 08 sodium chloride 0.9 % injection 3 mL 3 mL, IV, Q12H CARMEN Given, 3 mL at 01/09 0815 PRN Medication Ordered Dose/Rate, Route, Frequency Last Action [id number]-[id number]-[id number] in Lipoderm 2%-5%-5% cream 1 g 1 g, top, TID PRN Given, 1 g at 01/07 0900 calcium carbonate chewable tablet 200 mg of calcium (TUMS) 200 mg of calcium, oral, TID PRN Given, 200 mg of calcium at 01/08 1431 HYDROmorphone tablet 2 mg (DILAUDID) 2 mg, oral, Q4H PRN Given, 2 mg at 01/07 2223 lidocaine 5 % 1 patch (LIDODERM) 1 patch, TD, Daily PRN Medication Applied, 1 patch at 01/07 0900 naloxone injection 0.1 mg (NARCAN) 0.1 mg, IV, Q5 Min PRN Ordered ondansetron ODT disintegrating tablet 4 mg (ZOFRAN-ODT) 4 mg, oral, Q6H PRN Given, 4 mg at 01/08 1455 prochlorperazine injection 5 mg (COMPAZINE) (Or Linked Group #1) 5 mg, IV, Q6H PRN Given, 5 mg at 01/09 0829 prochlorperazine tablet 5 mg (COMPAZINE) (Or Linked Group #1) 5 mg, oral, Q6H PRN See Alternative, 01/09 0829 simethicone chewable tablet 80 mg (MYLICON) 80 mg, oral, 4x Daily PRN Given, 80 mg at 01/08 1848 sodium chloride 0.9 % injection 10 mL 10 mL, IV, PRN Ordered sodium chloride 0.9 % injection 3 mL 3 mL, IV, PRN Ordered PMH/PSH: Past Medical History: Diagnosis Date Cataract Bilateral pseuodphakia Diabetes Mellitus NOS Renal Disease Shortness Of Breath Stone Kidney ? Stroke (HCC) 2022 Past Surgical History: Procedure Laterality Date CAROTID ARTERY ANGIOPLASTY 2022 EXTRACTION CATARACT WITH INSERTION INTRAOCULAR LENS Right 06/04/2018 Procedure: EXTRACTION CATARACT WITH INSERTION INTRAOCULAR LENS, right eye - Topical/Standard Lens; Surgeon: Mauri Farrell M.D.; Location: [facility] OR EXTRACTION CATARACT WITH INSERTION INTRAOCULAR LENS Left 06/13/2018 Procedure: EXTRACTION CATARACT WITH INSERTION INTRAOCULAR LENS, LEFT EYE- Topical/Standard lens; Surgeon: Mauri Farrell M.D.; Location: [facility] OR JOINT REPLACEMENT ? KIDNEY SURGERY Social History: She lives independently in [place], [place]. She has three daughters who live nearby as well as several grandchildren. Enjoys gardening and staying active. Spiritual Assessment: Accepting of tail ripper support. Finds prayer helpful. Advance Care Planning: Documented surrogate decision maker? Not documented. Does patient have an Advance Directive? no CODE STATUS: DNR/DNI REVIEW OF SYSTEMS Unable due to altered mentation. REVIEW OF SYSTEMS Palliative Functional Assessment 60%- Reduced ambulation, Unable to do hobby/housework with significant evidence of disease, Occasional assistance needed for self-care, Normal or reduced intake, Full level of consciousness or confusion OBJECTIVE PHYSICAL EXAM Temperature: [36.2 ??C-37.5 ??C] 37.2 ??C Heart Rate: [87-99] 87 Resp Rate: [16-22] 18 Blood Pressure: (148-181)/(52-88) 151/63 SpO2: [92 %-95 %] 94 % Pulse Rate: [86-98] 86 I/O 01/07 0000 01/07 0000 01/09 2359 P.O. 440 Crystalloid Bolus 20 Maintenance IV 864.6 Intermittent Medications 100 Total Intake(mL/kg) 884.6 (15.8) 440 (7.8) 100 (1.8) Urine (mL/kg/hr) 350 (0.3) Total Output 350 Net +534.6 +440 +100 Unmeasured Urine Occurrence 5 x 5 x 2 x Unmeasured Stool Occurrence 5 x 1 x 1 x Unmeasured Emesis Occurrence 3 x Physical Exam General: Fatigued, thin woman reclined in the chair. No acute distress Skin: Good turgor, no rash Lungs: Regular, unlabored, no use of accessory muscles Psychiatric: Sleeping on arrival. Woke briefly to greet us though then fell back asleep shortly after. DIAGNOSTICS I have reviewed labs and CT. No results found. Lab results last 24 hours: Recent Results (from the past 24 hour(s)) Glucose, POCT Collection Time: 01/09/24 1:29 PM Result Value Glucose, POCT, B 219 (H) Last Intake 2-3 hours Glucose, POCT Collection Time: 01/09/24 5:27 PM Result Value Glucose, POCT, B 245 (H) Site Capillary Last Intake 3-4 hours Glucose, POCT Collection Time: 01/09/24 8:38 PM Result Value Glucose, POCT, B 222 (H) Site Capillary Last Intake 2-3 hours Hepatic Function Panel Collection Time: 01/10/24 4:10 AM Result Value Bilirubin, Total, S 0.7 Bilirubin, Direct, S 0.3 Aspartate Aminotransferase (AST), S 27 Alanine Aminotransferase (ALT), S 21 Alkaline Phosphatase, S 106 (H) Albumin, S 3.1 (L) Protein, Total, S 5.7 (L) CBC without Differential Collection Time: 01/10/24 4:15 AM Result Value Hemoglobin 10.8 (L) Hematocrit 30.9 (L) Erythrocytes 3.58 (L) MCV 86.3 RBC Distrib Width 13.0 Platelet Count 326 Leukocytes 20.4 (H) Renal Function Panel Collection Time: 01/10/24 4:15 AM Result Value Potassium, S 3.5 (L) Sodium, S 130 (L) Chloride, S 93 (L) Bicarbonate, S 26 Anion Gap 11 BUN (Blood Urea Nitrogen), S 15 Creatinine 0.51 (L) Estimated GFR (eGFR) >90 Calcium, Total, S 8.4 (L) Glucose, S 212 (H) Albumin, S 3.1 (L) Phosphorus (Inorganic), S 2.4 (L) Glucose, POCT Collection Time: 01/10/24 8:06 AM Result Value Glucose, POCT, B 204 (H) Site Capillary Last Intake > 4 hours Glucose, POCT Collection Time: 01/10/24 12:11 PM Result Value Glucose, POCT, B 207 (H) Site Capillary Last Intake 1-2 hours Results from last 7 days Lab Units 01/10/24 0415 WBC x10(9)/L 20.4* HEMOGLOBIN g/dL 10.8* HEMATOCRIT % 30.9* MCV fL 86.3 PLATELETS AUTO x10(9)/L 326 Results from last 7 days Lab Units 01/10/24 0415 SODIUM mmol/L 130* CHLORIDE mmol/L 93* CREATININE mg/dL 0.51* ESTIMATED GFR EGFR mL/min/BSA >90 BUN mg/dL 15 ANION GAP 11 GLUCOSE S mg/dL 212* CALCIUM mg/dL 8.4* ASSESSMENT / PLAN Ms. Charla Graham is an 83 year old female admitted 01/05/24 with post procedural pancreatitis following EUS and ERCP with stenting in the setting of malignant appearing biliary stricture. Palliative Care is consulted for goals of care discussions. #1 Diabetes Mellitus Type 2 Without Complication (HCC) #2 Stricture Biliary (HCC) #3 Infarction Cerebral (HCC) #4 Pancreatitis Post Endoscopic Retrograde Cholangiopancreatography (HCC) #5 Delirium Ms. Graham was seen this morning without family and was not able to stay awake for the visit. I returned later when her daughter was present, though the patient remained asleep. We introduced the patient and family to role of palliative care in the care of patients with serious illness, namely expertise in pain and non- pain symptom management, psychosocial, and spiritual support for patients and families as well as assistance in broader medical decision making. I had a thorough discussion with her daughter (Maia) and she shares her mother was active and lived independently prior to admission. She loves to stay busy and work in her garden. She had recently not been feeling well and experienced weight loss, which they now understand is related to the pancreatic head mass. They are struggling with lack of information given the final cytology was negative (though most likely represents malignancy per Oncology). Ms. Graham is described as someone who avoidsmedical interventions and doctor visits. She has expressed desire to go home and not return to the hospital/clinic. With this, I introduced the recommendation for a hospice care plan when she returnshome. I provided brief education and explained hospice is available 06/03 though not in the home continuously therefore caregiving would be provided by family, friends, or other privately paid services. Her family seems committed to avoiding a nursing facility if at all possible and Maia was open to Social Work consult to further discuss hospice. From a symptom standpoint, Ms. Graham has developed worsening nausea with multiple emesis over the last 24 hours. Primary service has arranged a CT abdomen today to further evaluate. We will plan to follow up with patient and family tomorrow. Recommendations reviewed with primary service. RECOMMENDATIONS - Discontinue prochlorperazine - Start olanzapine 2.5 mg PO QHS and 2.5 mg PO Q6H PRN - Continue ondansetron 4 mg IV/ODT Q6H PRN for breakthrough Advance Care Planning: DNR/DNI. No ACP documents on file. Thank you for having the Palliative Medicine team A [phone]) participate in the care of this patient. Please do not hesitate to contact our team at anytime with any questions or concerns. Total time spent was 60 minutes. Elio Hatfield APRN, C.NMj, Tia.N.P. * Nemesio Paul M.D. - 01/09/2024 9:57 AM CDTAssociated Order(s): IP CONSULT TO ONCOLOGY SUBJECTIVE PRIMARY CARE PHYSICIAN ELSEWHERE, PCP REQUESTING PROVIDER No referring provider defined for this encounter. LOCAL ONCOLOGIST No care boarder steam to display PRIMARY HOBART ONCOLOGIST No care boarder steam to display REASON FOR CONSULT Charla Graham is a 83 y.o. female currently admitted following EUS/ERCP for investigation of a malignant bile duct stricture, course complicated by post- procedural pancreatitis. Cytology from EUS showing atypical glandular cells. ERCP concerning for malignant stricture. Oncology consulted to discuss next steps in management. HISTORY OF PRESENT ILLNESS The patient was in the process of establishing care at [facility] Pancreas clinic. She underwent Telemedicine pre-visit with the Pancreas Nurse on 11/30/23 and was pre-scheduled for tests. Over the last few months the patient has lost about 20 lb. Further evaluation locally showed elevation alkaline phosphatase to 353, AST 53, ALT 76. CT chest abdomen pelvis performed at the beginning of November showed dilated biliary tree with cutoff of the common bile duct at the pancreatic head and atrophy of the pancreatic body and tail, could not rule out malignancy. She was referred to [facility] for further evaluation. On 12/12/23 she underwent outpatient blood work, and CT pancreas triple phase which d emonstrated stricturing of the lower common bile duct over 30 mm segment of the ampulla concerning for malignancy, with significant upstream dilatation of the biliary system, prominent gastrohepatic and periportal lymph nodes. She was admitted to the hospital shortly after that on 12/12 for decompression of malignant obstruction. She underwent ERCP which showed purulence and choledocholithiasis in the CBD, and a plastic stent was placed in a 30 mm stricture of the distal CBD. Suspicion was highest for malignant stricture, and CA 19-9 supported this (elevated at 178). However, because of plavix (stroke history) they did not remove stones or complete sphincterotomy. She received 5 days of antibiotics for treatment of cholangitis and plan was for completion of EUS, ERCP with sphincterotomy, and metal stent placement after plavix was stopped for 7 days. She was readmitted to undergo EUS + ERCP on 01/04, with EUS revealing mass of the pancreas head (1.6x 1.6 cm). The overall impression is likely adenocarcinoma of the distal bile duct versus the head of the pancreas. FNA for cytology was obtained, and in-room cytopathology confirmed the presence of adenocarcinoma. Final cytology though is negative for malignancy Additionally, plastic stent was removed and exchanged with metal stent, sphincterotomy completed, bile ducts swept with sludge cleared.In terms of staging, she underwent a CTA, triple phase pancreatic protocol on 12/11. As noted above,this showed short segment distal common bile duct stricture with upstream biliary biliary debris (but without identifiable obstructive stone or mass) and upstream biliary ductal dilation. Prominent gastrohepatic and portacaval lymph nodes, which remain indeterminate. CT chest obtained on 12/11 as well not yet interpreted but to my interpretation there might be some subcm lung nodules. Will wait for final radiology interpretation. Her bilirubin and LFTs have currently normalized. REVIEW OF SYSTEMS 14-point ROS negative unless otherwise noted OBJECTIVE BP (!) 135/48 (BP Location: Left arm;Upper, Patient Position: Lying) Pulse 82 Temp 37.5 ??C (Oral) Resp 18 Ht 162.6 cm Wt 56.1 kg SpO2 95% BMI 21.23 kg/m?? PHYSICAL EXAM General: Patient very hard of hearing, tired Head: Normocephalic, atraumatic Neck: Supple Lungs: No increased WOB Abdomen: Non-distended Extremities: no edema, clubbing, cyanosis LABORATORY DATA Lab data reviewed. RADIOLOGICAL DATA Radiology data reviewed. ASSESSMENT / PLAN #Pancreatic mass on EUS, suspicious for malignancy #Post ERCP Pancreatitis This is a challenging case as we do have evidence of a suspicious mass on EUS, with malignant appearing stricture in the bile ducts, however FNA cytology was not revealing of a malignancy. Rest of the CT scans available in the chart do not show any clear evidence of metastatic disease. Overall, thebig picture here is that this is likely pancreatic cancer vs. Ampullary vs. Distal cholangiocarcinoma, currently localized to the pancreas. This would theoretically be amenable to curative treatment,that would however require extensive surgery and possibly perioperative chemotherapy with at least two cytotoxic agents. We had a uriel discussion with the patient regarding the above. We discussed that in the case that we would proceed with full treatment with a curative intent we would need to repeat an EUS with biopsy to have a definitive diagnosis. She is already having a hard time recoveringfrom this pancreatitis. We discussed that the natural history of cancer in these cases would be likely further complications down the road with recurrent biliary obstructions and infections. We also discussed that in the case of a curative surgery, these are usually pretty extensive with excessive morbidity, not accounting for the complications that come with perioperative chemotherapy, if this is deemed to be provided. Patient and family stated that they would not be interested in additional biopsies, surgery or chemotherapy and they would favor a more palliative approach. At this point would recommend palliative consultation. Let us know before discharge about final decision of the familyin case oncology follow-up is desired. Case seen with Dr Mcgarry. PATIENT EDUCATION Ready to learn, no apparent learning barriers were identified; learning preferences include listening. Explained diagnosis and treatment plan; patient expressed understanding of the content. ADMINISTRATIVE BILLING I spent 75 minutes face to face and non-face to face caring for the patient today. * Malka Esquivel M.A., O.T., [facility] - 01/07/2024 2:49 PM CDT Occupational Therapy Acute Hospital Inpatient Evaluation/Treatment SUBJECTIVE Patient's Name: Charla Graham Referring/Attending Provider: Aries Osborne M.B. Reason for Referral: Occupational Therapy Evaluation and Treatment PERTINENT MEDICAL / SURGICAL HISTORY: Charla Graham has a past medical history of Cataract, Diabetes Mellitus NOS, Renal Disease, Shortness Of Breath, Stone Kidney (?), and Stroke (HCC) (2022). Charla Graham has a past surgical history that includes Extraction Cataract with Insertion Intraocular Lens (Right, 06/04/2018); Extraction Cataract with Insertion Intraocular Lens (Left, 06/13/2018); Kidney surgery; Carotid angioplasty (2022); and Joint replacement (?). History of Present Illness: Charla Graham is a 83 y.o. female who was admitted to in [place] on 01/05/2024 for Pancreatitis Post Endoscopic Retrograde Cholangiopancreatography (HCC) [K85.80]. Relevant Medical History: Ms. 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 She is admitted with post-ERCP pancreatitis following EUS with ERCP today, during which sphincterotomy was performed and FNA of pancreatic head lesion. Precautions Other Precautions: fall risk; cognition? Falls screen: Fall in the last 12 months: No Are you fearful of falling: No Pain Assessment: Patient is using ice and heat on her abdomen, but does not rate the pain. Subjective Comments: Agreeable to therapy session. Team Communication: The patient's status was discussed and coordination of care occurred with RN, PT Co-treat with physical therapy as patient benefits from 2 skilled therapists present in order to optimize safety and progression of mobility and self-care skills. Home Living and Equipment: Lives with: Alone Receives help from: Family Type of Home: House Home Layout: Multi-Level Able to live on main level with bedroom/bathroom Home Access: Stairs to enter: Number of steps: 5, Railing: bilateral handrails Bathroom Accessibility: Shower: Tub/Shower Bathroom Equipment: Grab bars in shower Toilet: Comfort Toilet Toilet Equipment: Vanity next to toilet Assistive Device Owned: Four wheeled walker (two of them), Single point cane Adaptive Equipment Owned: None Prior Level of Function and Mobility: Basic Activities of Daily Living: Independent Instrumental Activities of Daily Living: Independent Functional Mobility: Independent Leisure Interests: enjoys tending to her chickens Patient/Caregiver Goals: Discharge home OBJECTIVE Vital Signs: Pre-Activity: Pulse Rate: 97 bpm Blood Pressure: 151/75 mmHg O2: 96% Room air Post Activity: Pulse Rate: 98 bpm Blood Pressure: 165/81 mmHg O2: 91% Room air Evaluation Assessment: STRENGTH: Generalized weakness RANGE OF MOTION: Upper extremities within functional limits BALANCE: Static Sitting: Good (Maintains balance without support) Dynamic Sitting: Good (Maintains balance without support) Static Standing: Fair (Maintains balance with handheld assist) Dynamic Standing: Fair (Maintains balance with handheld assist) ACTIVITY TOLERANCE: Endurance: Tolerates less than 10 minutes of activity Outcome Measures: [facility] Inpatient Short Form: Putting on and taking off regular lower body clothing?: A Little Putting on and taking off regular upper body clothing?: A Little Taking care of personal grooming such as brushing teeth?: A Little Bathing (including washing, rinsing, drying)?: A lot Toileting, which includes using toilet, bedpan, or urinal?: A lot Eating meals?: None Daily Activities Raw Score (max 24): 17 Daily Activities Standardized Score: 37.26 Interpretation: Based on scoring guidelines using the raw score value: Those going to home had an average score at or above 18 Those going to facility had an average score at or below 17 Clinicians answer the [facility] Inpatient Short Form based on observed patient activity and/or clinical judgment (ie. patient can be scored without physically performing each activity) Cognition: Observable concerns with cognition and further assessment is warranted - Cognitive Assessment Method: Therapist observations - Orientation: Disoriented to time - Arousal/Alertness: Delayed responses to stimuli - Following Commands: Follows 1-step commands with repetition/ increased time - Attention: Impairments noted Therapeutic Interventions: BED MOBILITY: SUPINE to SIT - Assist Level: Supervision/Set-up - Device: use of bed rail, head of bed elevated - Therapist Delivery: assessed, instructed, assisted, facilitated - Assist/Cues: verbal and tactile for log roll technique, technique, increased time SIT to SUPINE - Assist Level: Supervision/Set-up - Device: use of bed rail, head of bed elevated - Therapist Delivery: assessed, instructed, assisted, facilitated - Assist/Cues: verbal and tactile for log roll technique, technique, sequencing, increased time FUNCTIONAL TRANSFERS: SIT to STAND - Assist Level: Supervision/Set-up - Equipment: front wheeled walker and gait belt - Surface: Bed - Therapist Delivery: assessed, instructed, assisted, facilitated - Assist/Cues: verbal and tactile for technique, sequencing, proper hand placement, anterior weightshift STAND to SIT - Assist Level: Supervision/Set-up - Equipment: front wheeled walker and gait belt - Surface: Bed - Therapist Delivery: assessed, instructed, assisted, facilitated - Assist/Cues: verbal and tactile for technique, sequencing, proper hand placement, eccentric control FUNCTIONAL MOBILITY: Mobility performed to practice household distances with supervision/stand by assistance x1 (+1 to manage lines) and front wheeled walker and gait belt Education/Training Provided: Provided education on role of occupational therapy in the acute setting. Collaborated with patient and/or family on goals and plan of care. Call light safety: - Patient instructed in the functional use of the call light device and review of appropriate scenarios for use. Education has the ultimate goal to increase safety and reduce delirium through appropriate access to nursing staff. Functional Transfers: - Provided instruction and cues during functional sit to/from stand transfers, including body alignment to surface, appropriate hand placement, and optimal placement of extremities to optimize safetyand technique. Patient was left in bed with bed alarm on at end of session with call light in reach, all needs metand questions answered. Assessment Discharge Therapy Needs - OT: Ongoing skilled occupational therapy (pending hospital progress) Skilled therapy can include occupational therapy provided in home health, outpatient or post-acute facility. The location of these services is determined by patient's care team in partnership with patient/family. Barriers to Discharge Home: Current functional status Recommended Adaptive Equipment - OT: Other (Comment) (ongoing assessment) Level of Care Needed - OT: Assistance with toileting, Assistance with toilet/shower transfers, Assistance with showering/bathing, Assistance with meal preparation, Assistance with transportation, Assistance with housekeeping, Assistance with shopping Clinical Impression: Currently, patient presents with impairments including pain, debility, impaired balance, decreased activity tolerance, and delirium resulting in functional deficits including impaired functional mobility and decreased independence with self care tasks. Patient performing bed mobility with supervision. Patient required stand by assistance and use of front wheel walker for functional transfers and ambulation. Patient with limited activity tolerance and requires cues to monitor her energy level. Patient was living alone independently prior to this hospitalization. Per primary service, patient isexperiencing delirium. Will further assess cognition as able during this hospitalization. Patient hopes to return home after this hospitalization. The patient will benefit from ongoing occupational therapy services while hospitalized in order to improve engagement and independence in meaningful occupations. Plan OT Plan Comments: Tier 2 cognitive assessment (ie. SLUMS); toileting; grooming standing at sink; Functional Goals: OT Goal #1: Patient will perform toilet transfer and hygiene with modified independence to return to prior level of function. OT Goal #2: Patient will perform grooming while standing at the sink with modified independence to return to prior level of function. OT Goal #3: Patient will perform full body dressing, including retrieval of clothing with modified independence to return to prior level of function. OT Goal #4: Patient will participate in cognitive assessment for safe dismissal planning. Progress: Progressing toward goals Rehab potential: Ms. Graham has good potential to achieve established occupational therapy goals within the time frame outlined below. OT Frequency: OT Amount: 1 visit per day OT Frequency: 5 times per week OT Inpatient Duration : Until goals are met or hospital discharge Requires Inpatient OT Follow-Up: Yes OT - Next Inpatient Appointment: 01/09/24 Plan: Plan of care initiated Treatment interventions may include: Treatment Interventions: Therapeutic exercise, Therapeutic functional activity, Self-care/home management, Cognitive skills training Occupational Therapy Attestation Statement: Patient agrees with the plan of care and goals. Billing: Tiered OT Evaluation Codes: Comorbid Conditions: Arthritis, Cerebrovascular accident, Cardiopulmonary disease, Diabetes Personal Factors: Age, Needs assistive device, Living situation, Hearing impairment Occupational Profile and History review: Expanded Performance Deficits: 3 - 5 performance deficits Evaluation Complexity: Moderate Time Spent with Patient Evaluations OT Eval - Mod Complexity: 14 min Time Tracking Total Treatment Time (min): 14 min Tere Esquivel M.A., O.T., BCPR * Elma Sadler, P.Dafne. - 01/07/2024 1:17 PM CDT Physical Therapy Inpatient Evaluation/Treatment SUBJECTIVE Patient's Name: Charla Graham Referring/Attending Provider: Aries Osborne M.B. Reason for Referral: Physical Therapy Evaluate and Treat Pertinent Medical / Surgical History: Charla Graham has a past medical history of Cataract, Diabetes Mellitus NOS, Renal Disease, Shortness Of Breath, Stone Kidney (?), and Stroke (HCC) (2022). Charla Graham has a past surgical history that includes Extraction Cataract with Insertion Intraocular Lens (Right, 06/04/2018); Extraction Cataract with Insertion Intraocular Lens (Left, 06/13/2018); Kidney surgery; Carotid angioplasty (2022); and Joint replacement (?). History of Present Illness: Charla Graham is a 83 y.o. female who was admitted to in [place] on 01/05/2024 for Pancreatitis Post Endoscopic Retrograde Cholangiopancreatography (HCC) [K85.80]. Relevant Medical History: Left ICA CVA 01/03, left carotid stenosis, bilateral total hips, diabetes type 2, hard of hearing Precautions Other Precautions: fall risk; cognition (hard of hearing?) RST PT/OT Falls screen: Fall in the last 12 months: No Are you fearful of falling: No Home Living and Equipment: Lives with: Alone Receives help from: Family, numerous family members live nearby. She has at least 2 daughters:Antonia,Radha. And at least 3 granddaughters: Naye, Yaya, Crys. They live in [facility]. Type of Home: House Home Layout: Multi-Level Home Access: Stairs to enter: Number of steps: 5, Railing: bilateral handrails, granddaughters did not know she can reach both at the same time. Stairs to alternate level: Number of steps: 12, Railing: unilateral handrail Bathroom Accessibility: Accessible via walker Shower: Tub/Shower Level: Main Floor Bathroom Equipment: Grab bars in shower Toilet: Comfort Toilet Level: Main Floor Toilet Equipment: Vanity next to toilet Assistive Device Owned: Front wheeled walker, x 2 Prior Level of Function and Mobility: Functional Mobility: Independent Basic Activities of Daily Living: Independent Instrumental Activities of Daily Living: Required Assistance: Medication management, Housekeeping, Transportation Driving: No Occupational Role: Retired Pain Assessment: Pain Ratin/10 on a 0-10 point scale, Location: Right anterior lateral abdomen Patient/Caregiver Goals: Decrease pain, Return to home, and Return to prior level of function Subjective Comments: Patient Nursing Family agreed to session. OBJECTIVE Vital Signs: Vitals taken during session: Pulse rate: Before moving 97 after moving 98 bpm, Blood pressure: Before moving 151/75 after moving 13616 mmHg, and O2 sats: Before moving 96% after moving 91% % Evaluation Assessments: Strength: Not formally assessed but appears within functional limits based on observation Balance: Static Sitting: Good (Maintains balance without support) Dynamic Sitting: Good (Maintains balance without support) Static Standing: Fair (Maintains balance with handheld assist) Dynamic Standing: Fair (Maintains balance with handheld assist) Activity Tolerance: Endurance: Tolerates less than 10 minutes of activity Sitting Tolerance: edge of bed 3 Standing Tolerance: <5 with front wheeled walker Hearing: Hard of hearing - hearing aids not present Outcome Measures: [facility] Inpatient Short Form: [facility] Basic Mobility (V.2) How much help from another person do you currently need???If the patient hasn't done an activity recently, how much help from another person do you think he/she would needif he/she tried? 1. Turning from your back to your side while in a flat bed without using bedrails?: None 2. Moving from lying on your back to sitting on the side of a flat bed without using bedrails?: A Little 3. Moving to and from a bed to a chair (including a wheelchair)?: A Little 4. Standing up from a chair using your arms (e.g., wheelchair, or bedside chair)?: A Little 5. To walk in hospital room?: A Little 6. Climbing 3-5 steps with a railing?: A Lot -[facility] Basic Mobility (V.2) Raw Score: 18 [facility] Basic Mobility (V.2) Standardized Score: 41.05 Interpretation: Based on scoring guidelines using the raw score value: Those going to home had an average score at or above 18 Those going to facility had an average score at or below 17 Clinicians answer the [facility] Inpatient Short Form based on observed patient activity and/or clinical judgment (ie. patient can be scored without physically performing each activity) Therapeutic Interventions: SUPINE TO SIT: Assistance Level: Modified Independent, Supervision of 1 Device: head of bed elevated and bedrail Assistance/Cueing: verbal for Logrolling and Upper extremity placement Delivery: instructed, assessed, and facilitated SIT TO SUPINE: Assistance Level: Modified Independent, Supervision of 1 Device: head of bed elevated and bedrail Assistance/Cueing: verbal for Completion of transfer and Upper extremity placement Delivery: instructed, assessed, and facilitated SIT TO STAND: Assistance Level: Supervision of 1 Device: gait belt and front wheeled walker Surface: Bed Assistance/Cueing: verbal and tactile for Upper extremity placement and Walker placement Delivery: educated, instructed, assessed, and facilitated, remind patient to push-off 1 hand from seated surface and 1 on walker. STAND TO SIT: Assistance Level: Modified Independent, Supervision of 1 Device: gait belt and front wheeled walker Surface: Bed Assistance/Cueing: verbal for Alignment with seated surface and Upper extremity placement Delivery: educated, instructed, and assessed, remind patient to back of fully in reach for seated surface. GAIT: Distance: 33 meters Assistance Level:Modified Independent, Supervision of 1 Device: gait belt and front wheeled walker Quality: decreased gait speed, decreased heel strike, decreased toe off, guarded Assistance/Cueing:verbal and tactile for Forward gaze, Placement within the walker, Upright posture, and Walker Navigation Delivery: instructed, assessed, and facilitated Comments: Patient having considerable abdominal discomfort with possible constipation. Patient waiting for enema but was willing to walk with PT and OT to assess her mobility. Education : The patient/family educated on safe transfer techniques with functional mobility/activity. The patient's status was discussed and the following coordination of care occurred with the RN, Family/Caregiver, and OT Family/Caregiver Present: Three granddaughters: Yaya Yancey Nicole or present in the morning in the afternoon it was PT and OT. Co-treat with Occupational Therapy Patient benefitted from having 2 skilled therapists present in order to optimize mobility progression+safety with mobility. OT/PT addressed different goals within treatment session. Patient was left in bed with bed alarm on at end of session with call light in reach, all needs metand questions answered. Assessment Discharge Therapy Needs - PT: Ongoing skilled physical therapy (While hospitalized) Skilled therapy can include physical therapy provided by home health, outpatient clinic, or a post-acute facility. The location of these services is determined by the patient's care team in partnership with patient/family. Level of Care Needed - PT: Assistance with transfers (Comment), Assistance with walking and moving around the home, Assistance with stairs, Physical assistance needed Patient states she has 2 front wheeled walkers Barriers to Discharge Home: Current functional status, Fall risk From a physical therapy perspective, the level of care above has been recommended for Ms. Graham after hospital discharge. This level of care is based on her functional abilities during today's session. This may change throughout the hospital course and will be updated as appropriate. Clinical Impression: Patient is an 83 year female who had ERCP on 01/04, placing biliary stent. Patient, unfortunately, also has possible pancreatic cancer, biopsy pending. Patient was independent with mobility without assistive device before coming into the hospital. Was able to ambulate 33 m today with a front wheeled walker but was having abdominal discomfort and possible constipation pain. Currently, patient presents with increased pain and decreased activity tolerance resulting in the following impaired gait, impaired ability to complete ADLs, and impaired ability to complete stairs. Patient benefit from skilled PT while hospitalized. Physical therapy treatment is medically necessary to restore and maximize function, maximize safetyand facilitate discharge to home, teach and educate the patient and/or caregivers. Progress: Progressing toward goals, Slow progress, medical status limitations Plan PT Plan Comments: Encourage ambulation, progress activity as able, stairs Functional Goals: PT Inpatient Goals PT Goal #1: Independent in bed mobility without hopsital features, to return home alone safely PT Goal #1 Status: Progressing PT Goal #2: Transfers and ambulation independent to modified independent with least restrictive device for safety to return home alone. PT Goal #2 Status: Progressing PT Goal #3: Contact guard assistance for 5 steps up/down to enter/leave home safely, with one or two rails. PT Goal #3 Status: Ongoing Charlasera Graham has Good rehab potential to meet the expected outcomes in a reasonable period of time. Treatment Plan: Plan: Plan of care initiated PT Amount: 1 visit per day PT Frequency: 5 times per week PT Inpatient Duration : Until goals are met or hospital discharge Requires Inpatient Follow-Up: Yes PT - Next Inpatient Appointment: 01/09/24 Patient agrees with the plan of care and goals. Treatment interventions may include: Treatment/Interventions: Therapeutic exercise, Therapeutic functional activity, Neuromuscular re-education, Gait training Tiered PT Evaluation Codes: Comorbid Conditions: Arthritis, Cerebrovascular accident, Cardiopulmonary disease, Diabetes Personal Factors: Age, Needs assistive device, Living situation, Hearing impairment Examination elements: 3 Clinical Presentation: Evolving Clinical Decision Making: Low complexity clinical decision making Billing: Time Spent with Patient Evaluations PT Eval - Low Complexity: 8 min Therapeutic Interventions Therapeutic Activity (min): 10 min Time Tracking Total Timed Units (min): 10 min Total Treatment Time (min): 18 min Tracey Sadler P.T. * Krishan Le, R.NHerbert - 01/07/2024 10:02 AM CDTAssociated Order(s): IP CONSULT TO CARE MANAGEMENT Discharge Planning Assessment SUBJECTIVE Assessment Information Referral Source: Early Screen for Discharge Planning Referral Name: ESDP 11 Referral Reason: Re-admission risk Primary Language: Sen[place]e Glass Bulb Machine Adjuster Services Used: No Person(s) present during interview: Person(s) Present During Interview: patient History of Present Illness #1 Diabetes Mellitus Type 2 Without Complication (HCC) #2 Stricture Biliary (HCC) #3 Infarction Cerebral (HCC) #4 Pancreatitis Post Endoscopic Retrograde Cholangiopancreatography (HCC) #5 Delirium Social History Citizenship: [place] Citizen Resident Status: [place] Res[place] Marital Status: Support System: children, family members, and friends/neighbors Finance/Insurance Primary insurance: MEDICARE A AND B Secondary insurance: N/A benefits: No Advance Directives Legal Decision Maker: Self Advance Directives: N/A Advance Directives Status: None on file, N/A OBJECTIVE Baseline Functional Status Baseline Activities of Daily Living Mobility: Independent Dressing: Independent Feeding: Independent Bathing: Independent Grooming: Independent Toileting: Independent Behavior: Appropriate, Pleasant, Calm, Cooperative, Oriented Communication: Talks, Understands speaking, Understands [place]e Shopping: Independent Medication Management: Needs assistance Housekeeping: Needs assistance Meal Prep: Independent Assistive Devices: Dentures, Grab bars - wall Services/Resources: Housekeeping Transportation: Support from family Baseline Services/Resources Primary care clinic and provider: ELSEWHERE, PCP Services/Resources: Housekeeping Additional Resources: None reported at this time Anticipated Needs Functional Status: None Assistive Devices: None Anticipated Modifications to the Patient's Home: None, Patient reports no anticipated modificationsneeded to the home Transportation Needs: Support from family Does the patient need discharge transport arranged?: No Anticipated Discharge Destination: Home or Self Care ASSESSMENT / PLAN Assessment: The home lending officer met with Charla Graham to discuss her current hospitalization and home goingneeds. The patient was unaccompanied. The patient was a reliable historian. The role of home lending officer was reviewed. The patient reviewed her prior level of care and support system. The patient receives support from her daughters. The patient described her living environment as a multiple level home with stairs to enter with rails. Housekeeping, grocery shopping, meal prep, and other household responsibilities have previously been completed by patient. home lending officer discussed the patient's potential needs at dismissal based on their home setting, previous needs and responsibilities, homebound status, and relevant assessments with the patient. The patient will be safe and supported to return home alone when medically ready. Support will be provided by patient's daughters. The patient demonstrated understanding when discussing her home going plans and anticipated needs. analytical research program manager met with patient in her room on [facility] room 280 to discuss potential discharge needs. Patient reports living at home independently at this time and would like to return home, but knows it's early in her hospital stay and understanding that her med team's recommendations may change. Patient does not anticipate any new home-going needs at this time and had no further questions or concerns. At this time, the care team has not identified any skilled post-hospital discharge care needs that require the assistance of the Care Management Team. After reviewing the patient's chart and meeting with the patient, the home lending officer deemed the LACE+/readmission questions were not necessary. The patient reports understanding that she will dismiss from the hospital when medically stable. Pending hospital course and medical readiness, no barriers to dismissal have been identified at this time. Plan: The patient agrees with the following plan. Patient's anticipated discharge disposition is: Home to Self Care Transportation upon dismissal will be provided by family--patient's daughter . home lending officer recommended nothing at this time. home lending officer provided information regarding the dismissal process. home lending officer placed or requested the following hospital-based consult orders and/or referrals: None. home lending officer will continue to assess for homegoing needs with the interdisciplinary team. home lending officer encouraged the patient to reach out with any questions/concerns. Care Management will continue to follow. Signed by: Briana Le R.N. 01/07/2024 documented in this encounter Nursing Notes * Brittani Madden R.N. - 01/14/2024 4:50 AM CDT Shift Goals: Clinical Goals for the Shift: Patient will remain vitally stable throughout the shfit Identify possible barriers to meeting goals/advancing plan of care: Diagnosis, pain, and weakness Problem: SAFETY ADULT Goal: Maintain a safe environment Outcome: Progressing Problem: Incontinence and/or Moisture Goal: Skin integrity is maintained or improved Outcome: Progressing Problem: SAFETY ADULT - RISK FOR FALL AND OR FALL INJURY Goal: Patient remains free from fall/fall injury Outcome: Progressing End of Shift Summary: Patient remained safe and free from falls throughout the shift. Patient is upwith one gait belt and walker. Patient maintained a safe environment throughout the shift and reported minimal pain. Patient did have some urgency with bathroom use. This caused patient to be slightly unsteady on her feet when hurrying to the bathroom. With the walker and gait belt nurse was able to keep patient safe. * Valerio Rae R.N. - 01/13/2024 12:04 PM CDT Shift Goals: Clinical Goals for the Shift: Patient will remain vitally stable throughout shift Identify possible barriers to meeting goals/advancing plan of care: N/A Shift Summary: AO3. Able to request help with bathroom. Patient free from falls overnight. Medically ready for discharge. Vitally stable. AUO. +BM, Tolerating meals. Up in chair and walk in room today + showered per family request. Skin CDI, some scattered bruising and PIV saline locked. Discharge Saturday 01/13- [facility] with family. * Brittani Madden R.N. - 01/13/2024 5:34 AM CDT Shift Goals: Clinical Goals for the Shift: Patient will remain vitally stable throughout shift Identify possible barriers to meeting goals/advancing plan of care: Diagnosis Problem: PAIN - ADULT Goal: PT VERBALIZES/DEMONSTRATES ADEQUATE COMFORT LEVEL OR BASELINE Outcome: Progressing Problem: KNOWLEDGE DEFICIT Goal: Patient/family/caregiver demonstrates understanding of disease process, treatment plan, medications, and discharge instructions Outcome: Progressing Problem: INFECTION - ADULT Goal: Absence of infection during hospitalization Outcome: Progressing Problem: SAFETY ADULT Goal: Maintain a safe environment Outcome: Progressing End of Shift Summary: Patient remained safe and free from falls. Patient reported no pain throughout the shift and slept well. Family wanted patient to have a shower but patient was tired from the day and was too tired. Patients vital signs remained stable throughout the shift. * Nemesio Paul M.D. - 01/12/2024 1:10 PM CDT Reviewed patient's goals with family at the bedside and answered additional questions regarding thesuspected diagnosis of cancer. Patient's goals still include no surgery or chemotherapy. Undecided about hospice yet but would not be interested in further workup and treatment of the underlying disease. Rest as per original consult note from 01/09/2024. We will sign off. * Valerio Rae R.N. - 01/12/2024 11:30 AM CDT Shift Goals: Clinical Goals for the Shift: patient will remain free of fall overnight Shift Summary: VSS on RA. Ax1 GBW. AUO. - BM. Tolerating fluids and light food. K 3.5- replacement ordered. OT/PT swallow/dysphagia study ordered. BG steady. * Nemesio Paul M.D. - 01/11/2024 8:03 AM CDT By reviewing the palliative care note, it appears that patient is leaning towards palliative approach for her suspected malignancy. Please refer to the oncology note from 01/08. Oncology will sign off. Feel free to re-engage us if she decided to pursue further treatment for her suspected cancer. * Katty Xavier R.N. - 01/10/2024 2:21 AM CDT Problem: PAIN - ADULT Goal: PT VERBALIZES/DEMONSTRATES ADEQUATE COMFORT LEVEL OR BASELINE Outcome: Progressing Problem: SKIN/TISSUE INTEGRITY Goal: Skin/Tissue integrity maintained or improved Outcome: Progressing Problem: SAFETY ADULT Goal: Maintain a safe environment Outcome: Progressing Problem: Compromised Skin Integrity Goal: Skin/Tissue integrity maintained or improved Outcome: Progressing Problem: Incontinence and/or Moisture Goal: Skin integrity is maintained or improved Outcome: Progressing Problem: SAFETY ADULT - RISK FOR FALL AND OR FALL INJURY Goal: Patient remains free from fall/fall injury Outcome: Progressing Shift Goals: Clinical Goals for the Shift: Patient will remain free from falls and injury during shift. Identify possible barriers to meeting goals/advancing plan of care: diagnosis End of Shift Summary: Patient remained free from falls and injury during shift. AOx3, RA, x 1 GB/W.Patient had multiple episodes of emesis overnight, IV Zofran given. Patient running hypertensive, sx notified. * Cathleen Perez R.N. - 01/09/2024 6:25 PM CDT Problem: PAIN - ADULT Goal: PT VERBALIZES/DEMONSTRATES ADEQUATE COMFORT LEVEL OR BASELINE Outcome: Progressing Problem: KNOWLEDGE DEFICIT Goal: Patient/family/caregiver demonstrates understanding of disease process, treatment plan, medications, and discharge instructions Outcome: Progressing Problem: INFECTION - ADULT Goal: Absence of infection during hospitalization Outcome: Progressing Problem: SKIN/TISSUE INTEGRITY Goal: Skin/Tissue integrity maintained or improved Outcome: Progressing Goal: Oral and Nasal mucous membranes remain intact Outcome: Progressing Problem: SAFETY ADULT Goal: Maintain a safe environment Outcome: Progressing Problem: DISCHARGE PLANNING Goal: Patient discharge needs identified Outcome: Progressing Problem: POTENTIAL OR ACTUAL PRESSURE INJURY-ADULT Goal: Manage sensory Perception deficits to maintain and/or improve skin integrity Outcome: Progressing Goal: Maintain optimal skin moisture to ensure or improve skin integrity Outcome: Progressing Goal: Achieve optimal activity and/or mobility to maintain or improve skin integrity Outcome: Progressing Goal: Nutrient intake appropriate for improving, restoring or maintaining skin integrity Outcome: Progressing Goal: Minimize friction and/or shear to maintain or improve skin integrity Outcome: Progressing Problem: Compromised Skin Integrity Goal: Skin/Tissue integrity maintained or improved Outcome: Progressing Goal: Oral and Nasal mucous membranes remain intact Outcome: Progressing Goal: Incisions, wounds, or drain sites healing without S/S of infection Outcome: Progressing Problem: Incontinence and/or Moisture Goal: Skin integrity is maintained or improved Outcome: Progressing Problem: SAFETY ADULT - RISK FOR FALL AND OR FALL INJURY Goal: Patient remains free from fall/fall injury Outcome: Progressing * Socorro Zhang R.N. - 01/07/2024 5:37 AM CDT Problem: PAIN - ADULT Goal: PT VERBALIZES/DEMONSTRATES ADEQUATE COMFORT LEVEL OR BASELINE Outcome: Progressing Problem: KNOWLEDGE DEFICIT Goal: Patient/family/caregiver demonstrates understanding of disease process, treatment plan, medications, and discharge instructions Outcome: Progressing Shift Goals: Identify possible barriers to meeting goals/advancing plan of care: None End of Shift Summary: Patient slept well overnight. VSS. Up with SBA and walker to the bathroom andtolerating well. Pain seems well controlled with PRN analgesics. Safety maintained. * John Vazquez R.N. - 01/06/2024 5:12 AM CDT Shift Goals: Clinical Goal for the Shift: Pain, nausea control, remain safe and rest well Identify possible barriers to meeting goals/advancing plan of care: None End of Shift Summary: Patient pain, nausea was adequately controlled, remained safe and rested wellduring the shift. documented in this encounter ED Notes * Ky Carr D.O. - 01/06/2024 12:54 AM CDT I have personally seen and examined this patient. I have fully participated in the care of this patient. I have reviewed all clinical information including history, physical exam, orders, and plan. Rahee with the note of the resident. This is an 83-year-old female who presents the emergency department with diffuse abdominal pain andrecurrent nausea and vomiting. Patient underwent an outpatient ERCP this morning and was dischargedaround 9:00 a.m.. Shortly after the procedure the patient started developing generalized abdominal pain with associated bouts of nausea and vomiting. She is tried to eat some simple foods at home buthas not been able to keep anything down. They did touch base with their GI team prior to coming down for evaluation. On exam, patient is hypertensive and appears uncomfortable but is in no acute distress. Exam demonstrates diffuse moderate abdominal tenderness with more localizing tenderness to theright upper quadrant. I can not appreciate any abdominal ecchymosis. There are no signs of peritonitis. Lab work thus far demonstrates a leukocytosis to 13.5. Serum lipase is currently pending. Liverfunction tests are unremarkable. We are obtaining a CT scan of the abdomen and pelvis to evaluate for post ERCP complications such as localized hemorrhage versus an early post ERCP pancreatitis. We are also following her lipase. We will attempt to control her symptoms with fentanyl, IV fluids, and Zofran. Anticipate a high likelihood that the patient will warrant admission to the hospital for further symptomatic management pending the results of her abdominal CT. CT imaging demonstrates interstitial pancreatitis. Patient's lipase is still pending, but I presumeit is taking extra processing time from the lab due to significant elevation. The patient has continued to require IV pain medications and nausea medications. She will certainly warrant admission to the hospital. Case was discussed with the medical services assistant of the day who is recommending admission to the GI service given her procedure just this morning. Final Diagnoses: as of 01/06/24228 Pancreatitis Post Endoscopic Retrograde Cholangiopancreatography (HCC) My CT Scan interpretation is documented in ED Course. I discussed the management of the patient with: Hospitalist. Ky Carr D.O. 01/06/24 0439 * Ashley Mcgraw M.D. - 01/05/2024 11:49 PM CDT SUBJECTIVE CHIEF COMPLAINT/REASON FOR VISIT Abdominal Pain and Post-op Problem HISTORY OF PRESENT ILLNESS History provided by: Patient and relative expediter clerk needed/used: no Mr. Graham is a 83-year-old female with diabetes mellitus type 2 (not on insulin), biliary stricture,cholangitis, left ICA stroke in 12/2022 . Per GI note from 01/05/24, she had an ERCP performed on 01/05/2024 with biliary sphincterotomy and uncovered metal stent placed into a malignant appearing biliary stricture. She called GI that she had progressive abdominal pain with continuous emesis and inability to tolerate p.o. intake in addition to chills. Family shares that she had the ERCP around 9:00 a.m. today. They returned home around 2:00 p.m. michael developed periumbilical pain. This pain is now currently in the right upper quadrant. She has had back pain associated with this, none currently. She describes it as a ???hard ache?? and has worsened over time. She was also had multiple episodes of emesis and has had nausea. She received some pain medication via EMS in his unsure what pain medication she received. She has had chills, no fevers at home but they did not take a temperature. She has not taken Plavix for 10 days. REVIEW OF SYSTEMS Constitutional: Positive for chills. Negative for fever. HENT: Negative for trouble swallowing. Eyes: Negative for visual disturbance. Respiratory: Negative for shortness of breath. Cardiovascular: Negative for chest pain. Gastrointestinal: Positive for abdominal pain, nausea and vomiting. Endocrine: Positive for high blood sugars (They shared that in the ambulance her blood sugar was elevated). Musculoskeletal: Positive for back pain. Skin: Negative for rash. Neurological: Negative for dizziness and light-headedness. OBJECTIVE Initial Vitals [01/05/24 2306] Temperature 36.5 ??C Pulse Rate 74 Heart Rate Resp Rate 16 Blood Pressure (!) 165/66 SpO2 96 % Pain Score 4 PHYSICAL EXAMINATION Constitutional: She appears not lethargic. No distress. Eyes: Conjunctivae are normal. Cardiovascular: Normal rate, S1 normal and S2 normal. Murmur (Systolic murmur) heard. Pulmonary/Chest: Breath sounds normal. No tachypnea. No respiratory distress. She exhibits no retraction. Abdominal: Firm. Bowel sounds are normal. exhibits no distension. There is abdominal tenderness (Diffuse tenderness). There is no guarding. No flank tenderness Musculoskeletal: Comments: No tenderness to palpation of spine Neurological: Oriented to situation Skin: Skin is warm. No rash noted. She is not diaphoretic. ASSESSMENT/PLAN Mr. Graham is a 83-year-old female with diabetes mellitus type 2 (not on insulin), biliary stricture,cholangitis, left ICA stroke in 12/2022, she is presenting for abdominal pain, chills, nausea, and multiple episodes of emesis following her ERCP. She is afebrile and hemodynamically stable with notable blood pressure of 165/66, on exam, she doesappear comfortable although she has diffuse tenderness to palpation of her abdomen. We will obtain CBC, BMP, hepatic function panel, lipase, lactate, PT and urinalysis. Since she had a procedure earlier today and is now developing postoperative pain, we will obtain abdomen and pelvis CT. Workup was significant for pancreatitis with CT abdomen and pelvis demonstrating pancreatitis and significantly elevated lipase. In the emergency department, she received fentanyl and morphine for pain control. Zofran was not helpful for her nausea and instead she was given Compazine. She will be admitted to GI. ED Course as of 01/06/24 0308 MonJanuary 05, 2024 2349 Leukocytes(!): 13.5 2349 Lactate: 1.9 2349 Hemoglobin: 12.1 2349 Sodium, P(!): 131 I would leukocytosis 2349 Blood Pressure(!): 165/66 2349 Temperature: 36.5 ??C Sat January 06, [address] Abdomen Pelvis with IV Contrast Findings consistent with acute uncomplicated interstitial pancreatitis involving the pancreatic head and uncinate process. Associated inflammation about the duodenum and colon in the hepatic flexure. 2. Interval ERCP with new common bile duct stent. Stable intrahepatic biliary ductal dilation. 0307 ECG 12 Lead Normal sinus rhythm, QTc 451 0307 Lipase, S(!): 2948 Consistent with pancreatitis 0307 Glucose, P(!): 329 Gave 5 units of insulin, admitting service aware we will need to continue to check glucose 0307 Ketones(!): 5 Mild ketones on UA Final Diagnoses: as of 01/06/24 0308 Pancreatitis Post Endoscopic Retrograde Cholangiopancreatography (HCC) Care Handoff Row Name 01/06/24 0245 Care Handoff Type of Handoff Admission handoff Provider's Name Ashley Hankins M.D. Resident 01/06/24 0309 documented in this encounter Miscellaneous Notes * Hospital Course - Freida Rivers M.D. - 01/07/2024 10:41 AM CDT Ms. Charla Graham is a 83 y.o. 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 She developed periumbilical abdominal pain, nausea, and vomiting about 5 hours post- procedure and presented to the ED. Recent clinical history is notable for an admission 12/12-12/14 for cholangitis. She underwent ERCP which showed purulence and choledocholithiasis in the CBD, and a plastic stent was placed in a 30 mm stricture of the distal CBD. Suspicion was highest for malignant stricture, and CA 19-9 supported this(elevated at 178). However, because of plavix (stroke history) they did not remove stones or complete sphincterotomy. She received 5 days of antibiotics for treatment of cholangitis and plan was for completion of EUS, ERCP with sphincterotomy, and metal stent placement after plavix was stopped for 7 days. She underwent EUS + ERCP on 01/04, with EUS revealing mass of the pancreas head (1.6 x 1.6 cm). 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 Final cytology was nondiagnostic and negative for malignancy. Additionally, plastic stent was removed and exchanged with metal stent, sphincterotomy completed, bile ducts swept with sludge cleared. Ataround 2 pm the same day, she had progressively severe hyun-umbilical abdominal pain, nausea, and four episodes of emesis (non-bloody). In the ED she was hypertensive but hemodynamically stable and afebrile. Hgb 12.1, WBC 13.5, Plts 290. CMP notable for Na 131, Cr baseline 0.68, glucose 329, normal T bili, AST, ALT, and mildly elevated alkphos at 139 (previous 265). She was found to have acute pancreatitis on CT and lipase 2948, consistent with post-procedural pancreatitis. She received zofran, fentanyl and morphine 4 mg without adequate analgesia. She is admitted to [facility] for post-ERCP pancreatitis. On the floor, the patient was hemodynamically stable. We administered IV fluids to maintain adequate urine output. We managed her pain with tylenol, dilaudid, heat and ice. We advanced her diet slowly as tolerated. On 01/07, we treated the patient for constipation with oral lactulose with improvement. Swallow study with no evidence of dysphagia but recommended general aspiration precautions and eating smaller meals frequently throughout the day. We consulted oncology for the concern of likely pancreatic cancer vs. ampullary vs. distal cholangiocarcinoma currently localized to the pancreas butwith a FNA cytology negative for malignancy. They discussed that overall the suspicion for malignanc y remains very high, but any form of treatment would require definitive diagnosis with a biopsy. The family and patient expressed they would not be interested in pursuing further treatment for any form of cancer given the associated morbidity of treatment. Palliative care was consulted to discuss a symptoms-based approach. The family prefer to take the patient home while they made final decisionsregarding possible hospice care. documented in this encounter Plan of Treatment Upcoming Encounters Date Type Department Care Team (Latest Contact Info) Description 02/19/2024 9:30 AM CDT Comprehensive Visit Department of Ophthalmology in [address] [id number] Alan Araujo Jr., M.D. [address] [id number] Discharge Disposition: Home or Self Care Scheduled Referrals Name Type Priority Associated Diagnoses Orde r Schedule [facility] H[facility]ice referral Outpatient Referral Routine Pancreatitis Post Endoscopic Retrograde Cholangiopancreatography (HCC) Stricture Biliary (HCC) Ordered: 01/12/2024 documented as of this encounter Procedures Procedure Name Priority Date/Time Associated Diagnosis Comments GLUCOSE POCT, B Routine 01/14/2024 7:56 AM CDT GLUCOSE POCT, B Routine 01/13/2024 9:25 PM CDT GLUCOSE POCT, B Routine 01/13/2024 5:33 PM CDT GLUCOSE POCT, B Routine 01/13/2024 12:32 PM CDT GLUCOSE POCT, B Routine 01/13/2024 8:51 AM CDT RENAL FUNCTION PANEL, S Routine 01/13/2024 5:15 AM CDT MAGNESIUM, S Routine 01/13/2024 5:15 AM CDT CBC [...] POCT, B Routine 01/11/2024 9:20 PM CDT DIPSTICK, U Routine 01/11/2024 7:52 PM CDT MICROSCOPIC MANUAL Routine 01/11/2024 7: 52 PM CDT PH, U Routine 01/11/2024 7:52 PM CDT OSMOLALITY, U Routine 01/11/2024 7:52 PM CDT URINALYSIS WITH MICROSCOPIC Routine 01/11/2024 7:52 PM CDT GLUCOSE POCT, B Routine 01/11/2024 5:22 PM CDT GLUCOSE POCT, B Routine 01/11/2024 12:19 PM CDT GLUCOSE POCT, B Routine 01/11/2024 9:07 AM CDT RENAL FUNCTION PANEL, S Routine 01/11/2024 4:39 AM CDT CBC WITHOUT DIFFERENTIAL, B Routine 01/11/2024 4:39 AM CDT MAGNESIUM, S Routine 01/11/2024 4:39 AM CDT GLUCOSE POCT, [...] POCT, B Routine 01/09/2024 9:09 AM CDT UREA, RANDOM, U Routine 01/09/2024 8:24 AM CDT SODIUM, RANDOM, U Routine 01/09/2024 8:2 4 AM CDT OSMOLALITY, U Routine 01/09/2024 8:24 AM CDT CREATININE, RANDOM, U Routine 01/09/2024 8:24 AM CDT CHLORIDE, RANDOM, U Routine 01/09/2024 8 :24 AM CDT RENAL FUNCTION PANEL, S Routine 01/09/2024 4:09 AM CDT CBC WITHOUT DIFFERENTIAL, B Routine 01/09/2024 4:09 AM CDT OSMOLALITY, S Routine 01/09/2024 4:09 AM CDT MAGNESIUM, S Routine 01/09/2024 4:09 AM CDT GLUCOSE POCT, B Routine 01/08/2024 10:26 PM CDT GLUCOSE POCT, B Routine 01/08/2024 6:01 PM CDT GLUCOSE POCT, B Routine 01/08/2024 1:07 PM CDT CBC WITH DIFFERENTIAL, B STAT 01/08/2024 9:43 AM CDT COMPREHENSIVE METABOLIC PANEL, S/P STAT 01/08/2024 9:43 AM CDT GLUCOSE POCT, [...] POCT, B Routine 01/06/2024 7:50 AM CDT CBC WITH DIFFERENTIAL, B Timed 01/06/2024 6:31 AM CDT COMPREHENSIVE METABOLIC PANEL, S/P Timed 01/06/2024 6:31 AM CDT GLUCOSE POCT, B Routine 01/06/2024 4:52 AM CDT ECG STAT 01/06/2024 2:[address] ABDOMEN PELVIS WITH IV CONTRAST RAD - Semiurgent (Fast; most ED patients; some inpatients) 01/06/2024 1:40 AM CDT HC URINALYSIS AUTO WO MICRO Routine 01/06/2024 12:49 AM CDT HC OSMOLALITY ASSAY URINE STAT 01/06/2024 12:29 AM CDT DIPSTICK, U STAT 01/06/2024 12:29 AM CDT PH, RANDOM, U STAT 01/06/2024 12:29 AM CDT MICROSCOPIC MANUAL STAT 01/06/2024 12:29 AM CDT BACTERIAL CULTURE, AEROBIC + SUSC, URINE STAT 01/06/2024 12:29 AM CDT URINALYSIS WITH MICROSCOPIC STAT 01/06/2024 12:29 AM CDT PROTHROMBIN TIME (PT), P STAT 01/06/2024 12:28 AM CDT HEPATIC FUNCTION PANEL, S STAT 01/05/2024 11:23 PM CDT CBC WITH DIFFERENTIAL, B STAT 01/05/2024 11:23 PM CDT LIPASE, S/P STAT 01/05/2024 11:23 PM CDT LACTATE, B/P STAT 01/05/2024 11:23 PM CDT BASIC METABOLIC PANEL, S/P STAT 01/05/2024 11:23 PM CDT documented in this encounter Results * (ABNORMAL) Glucose, POCT (01/14/2024 7:56 AM CDT) Glucose, POCT, B 210(H) 70 - 140 mg/dL 01/14/2024 7:58 AM CDT PCLX Site Capillary 01/14/2024 7:58 AM CDT PCLX Last Intake 3-4 hours 01/14/2024 7:58 AM CDT PCLX Blood 01/14/2024 7:56 AM CDT 01/14/2024 7:58 AM CDT Unknown Provider LAB POCT ORDERABLES- MANUAL Performing Organization Address City/[facility]/ZIP Co de Phone Number POC [facility] [address] [place] [address], [facility] PCLX [facility] [address] [place] [address] * (ABNORMAL) Glucose, POCT (01/13/2024 9:25 PM CDT) Glucose, POCT, B 182(H) 70 - 140 mg/dL 01/13/2024 9:31 PM CDT PCLX Last Intake 2-3 hours 01/13/2024 9:31 PM CDT PCLX Blood 01/13/2024 9:25 PM CDT 01/13/2024 9:31 PM CDT Unknown Provider LAB POCT ORDERABLES- MANUAL Performing Organization Address City/[facility] Co de Phone Number [facility] [address] [place] [address], [facility] PCLX [facility] [address] [place] [address] * (ABNORMAL) Glucose, POCT (01/13/2024 5:33 PM CDT) Glucose, POCT, B 212(H) 70 - 140 mg/dL 01/13/2024 5:35 PM CDT PCLX Last Intake 3-4 hours 01/13/2024 5:35 PM CDT PCLX Blood 01/13/2024 5:33 PM CDT 01/13/2024 5:35 PM CDT Unknown Provider LAB POCT ORDERABLES- MANUAL [facility] [address] [place] [address], [facility] PCLX [facility] [address] [place] [address] * (ABNORMAL) Glucose, POCT (01/13/2024 12:32 PM CDT) Glucose, POCT, B 206(H) 70 - 140 mg/dL 01/13/2024 12:35 PM CDT PCLX Site Capillary 01/13/2024 12:35 PM CDT PCLX Last Intake 3-4 hours 01/13/2024 12:35 PM CDT PCLX Blood 01/13/2024 12:3 2 PM CDT 01/13/2024 12:36 PM CDT Unknown Provider LAB POCT ORDERABLES- MANUAL Performing Organization Address City/[facility] Co de Phone Number [facility] [address] [place] [address], [facility] PCLX [facility] [address] [place] [address] * (ABNORMAL) Glucose, POCT (01/13/2024 8:51 AM CDT) Glucose, POCT, B 208(H) 70 - 140 mg/dL 01/13/2024 8:55 AM CDT PCLX Last Intake 3-4 hours 01/13/2024 8:55 AM CDT PCLX Blood 01/13/2024 8:51 AM CDT 01/13/2024 8:55 AM CDT Unknown Provider LAB POCT ORDERABLES- MANUAL Performing Organization Address [facility] de Phone Number [facility] [address] [place] [address], [facility] PCLX [facility] [address] [place] [address] * (ABNORMAL) Renal Function Panel (01/13/2024 5:15 AM CDT) Potassium, S 4.0 3.6 - 5.2 mmol/L [...] CDT Bhumika Joy M.D. LAB BLOOD ADD-ON [facility] [address] [place] [address], [facility] [address] [place] [address] * Magnesium (01/13/2024 5:15 AM CDT) Magnesium, S 1.9 1.7 - 2.3 mg/dL 01/13/2024 6:29 AM CDT DTL Blood (Blood, Venous) 01/13/2024 5:15 AM CDT 01/13/2024 6:09 AM CDT Bhumika Joy M.D. LAB BLOOD ADD-ON [facility] [address] [place], [place] [address] [address] [place] [address] * (ABNORMAL) CBC without Differential (01/13/2024 5:14 AM CDT) Pathologist [facility] Hemoglobin 9.5(L) 11.6 - 15.0 g/dL 01/13/2024 [...] CDT Bhumika Joy M.D. LAB BLOOD ADD-ON [facility] [address] [place], [place] [address] [address] [place] [address] * (ABNORMAL) Glucose, POCT (01/12/2024 9:46 PM CDT) Pathologist [facility] Glucose, POCT, B 214(H) 70 - 140 mg/dL 01/12/2024 9:52 PM CDT PCLX Site Capillary 01/12/2024 9:52 PM CDT PCLX Last Intake 2-3 hours 01/12/2024 9:52 PM CDT PCLX Blood 01/12/2024 9:46 PM CDT 01/12/2024 9:52 PM CDT Unknown Provider LAB POCT ORDERABLES- MANUAL Performing Organization Address City/[facility]/ZIP Co de Phone Number [facility] [address] [place] [address], [facility] PCLX [facility] [address] [place] [address] * (ABNORMAL) Glucose, POCT (01/12/2024 4:20 PM CDT) Glucose, POCT, B 215(H) 70 - 140 mg/dL 01/12/2024 4:23 PM CDT PCLX Site Capillary 01/12/2024 4:23 PM CDT PCLX Blood 01/12/2024 4:20 PM CDT 01/12/2024 4:24 PM CDT Unknown Provider LAB POCT ORDERABLES- MANUAL Performing Organization Address [facility]/ZIP Co de Phone Number [facility] [address] [place] [address], [facility] PCLX [facility] [address] [place] [address] * (ABNORMAL) Glucose, POCT (01/12/2024 12:00 PM CDT) Glucose, POCT, B 171(H) 70 - 140 mg/dL 01/12/2024 12:02 PM CDT PCLX Site Capillary 01/12/2024 12:02 PM CDT PCLX Blood 01/12/2024 12:0 0 PM CDT 01/12/2024 12:02 PM CDT Unknown Provider LAB POCT ORDERABLES- MANUAL Performing Organization Address City/[facility]/ZIP Co de Phone Number [facility] [address] [place] [address], [facility] PCLX [facility] [address] [place] [address] * (ABNORMAL) Glucose, POCT (01/12/2024 7:43 AM CDT) Glucose, POCT, B 152(H) 70 - 140 mg/dL 01/12/2024 7:45 AM CDT PCLX Site Capillary 01/12/2024 7:45 AM CDT PCLX Blood 01/12/2024 7:43 AM CDT 01/12/2024 7:46 AM CDT Unknown Provider LAB POCT ORDERABLES- MANUAL [facility] [address] [place] [address], [facility] PCLX [facility] POC [address] [place] [address] * (ABNORMAL) Renal Function Panel (01/12/2024 7:23 AM CDT) Potassium, S 3.5(L) 3.6 - 5.2 mmol/L 01/12/2024 8:50 AM CDT DTL Sodium, S 132(L) 135 - 145 mmol/L 01/12/2024 8:50 AM CDT DTL Chloride, S 99 98 - 107 mmol/L 01/12/2024 8:50 AM CDT DTL Bicarbonate, S 25 22 - 29 mmol/L 01/12/2024 8:50 AM CDT DTL Anion Gap 8 7 - 15 01/12/2024 8:50 AM CDT DTL BUN (Blood Urea Nitrogen), S 10 6 - 21 mg/dL 01/12/2024 8:50 AM CDT DTL Creatinine 0.59 0.59 - 1.04 mg/dL 01/12/2024 8:50 AM CDT DTL Estimated GFR (eGFR) 88 >=60 mL/min/BSA 01/12/2024 8:50 AM CDT DTL Comment: Estimated GFR calculated using the 2020 CKD_EPI creatinine equation. Calcium, Total, S 8.1(L) 8.8 - 10.2 mg/dL 01/12/2024 8:50 AM CDT DTL Glucose, S 157(H) 70 - 140 mg/dL 01/12/2024 8:50 AM CDT DTL Albumin, S 2.5(L) 3.5 - 5.0 g/dL 01/12/2024 8:50 AM CDT DTL Phosphorus (Inorganic), S 3.1 2.5 - 4.5 mg/dL 01/12/2024 8:50 AM CDT DTL Blood (Blood, Venous) 01/12/2024 7:23 AM CDT 01/12/2024 8:33 AM CDT Librado Rascon Jr., M.D., M.B.A. LAB BLO OD ADD-ON Performing Organization Address [facility] Co de Phone Number [facility] [address] [place] [address], [facility] DTL [facility] [address] [place] [address] * (ABNORMAL) CBC without Differential (01/12/2024 7:23 AM CDT) Hemoglobin 9.7(L) 11.6 - 15.0 g/dL 01/12/2024 8:41 AM CDT DTL Hematocrit 30.1(L) 35.5 - 44.9 % 01/12/2024 8:41 AM CDT DTL Erythrocytes 3.31(L) 3.92 - 5.13 x10(12)/L 01/12/2024 8:41 AM CDT DTL MCV 90.9 78.2 - 97.9 fL 01/12/2024 8:41 AM CDT DTL RBC Distrib Width 13.1 12.2 - 16.1 % 01/12/2024 8:41 AM CDT DTL Platelet Count 259 157 - 371 x10(9)/L 01/12/2024 8:41 AM CDT DTL Leukocytes 14.0(H) 3.4 - 9.6 x10(9)/L 01/12/2024 8:41 AM CDT DTL Blood (Blood, Venous) 01/12/2024 7:23 AM CDT 01/12/2024 8:22 AM CDT Librado Rascon Jr., M.D., M.B.A. LAB BLO OD ADD-ON Performing Organization Address [facility]/ZIP Co de Phone Number [facility] [address] [place] [address], [facility] DTL [facility] [address] [place] [address] * (ABNORMAL) Glucose, POCT (01/11/2024 9:20 PM CDT) Glucose, POCT, B 187(H) 70 - 140 mg/dL 01/11/2024 9:22 PM CDT PCLX Last Intake 3-4 hours 01/11/2024 9:22 PM CDT PCLX Blood 01/11/2024 9:20 PM CDT 01/11/2024 9:22 PM CDT Unknown Provider LAB POCT ORDERABLES- MANUAL [facility] [address] [place] [address], [facility] PCLX [facility] [address] [place] [address] * (ABNORMAL) Microscopic Manual (01/11/2024 7:52 PM CDT) Microscopy Abnormal 01/11/2024 9:18 PM CDT DTL [...] CDT Ulysses Herrera M.D. LAB URINE ORDERABLES [facility] [address] [place] [address], [facility] [address] [place] [address] * (ABNORMAL) Dipstick, Urine (01/11/2024 7:52 PM CDT) Pathologist [facility] Hemoglobin, QL, U Trace(A) Negative 01/11/2024 8:44 [...] CDT Ulysses Herrera M.D. LAB URINE ORDERABLES [facility] [address] [place] [address], [facility] [address] [place] [address] * pH, Urine (01/11/2024 7:52 PM CDT) [facility] pH, U 6.5 4.5 - 8.0 01/11/2024 9:0 1 PM CDT DTL Urine 01/11/2024 7:52 PM CDT 01/11/2024 8:27 PM CDT Ulysses Herrera M.D. LAB URINE ORDERABLES [facility] [address] [place] [address], [facility] [address] [place] [address] * Osmolality, Urine (01/11/2024 7:52 PM CDT) Pathologist [facility] Osmolality, U 473 150 - 1150 mOsm/kg 01/11/2024 9:01 PM CDT DTL Urine 01/11/2024 7:52 PM CDT 01/11/2024 8:27 PM CDT Ulysses Herrera M.D. LAB URINE ORDERABLES Performing Organization Address City/[facility]/ZIP Co de Phone Number [facility] [address] [place] [address], [facility] [address] [place] [address] * (ABNORMAL) Urinalysis, with Microscopic: Urine, Midstream (01/11/2024 7:52 PM CDT) [facility] Source Urine, Urine, Midstream 01/11/2024 8:27 PM [...] M.D. LAB URINE ORDERABLES Performing Organization Address City/[facility]/ZIP Co de Phone Number [facility] [address] [place] [address], [facility] [address] [place] [address] * (ABNORMAL) Glucose, POCT (01/11/2024 5:22 PM CDT) [facility] Glucose, POCT, B 168(H) 70 - 140 mg/dL 01/11/2024 5:30 PM CDT PCLX Site Capillary 01/11/2024 5:30 PM CDT PCLX Blood 01/11/2024 5:22 PM CDT 01/11/2024 5:30 PM CDT Unknown Provider LAB POCT ORDERABLES- MANUAL Performing Organization Address City/[facility]/ZIP Co de Phone Number [facility] [address] [place] [address], [place] PCLX [facility] [address] [place] [address] * (ABNORMAL) Glucose, POCT (01/11/2024 12:19 PM CDT) Glucose, POCT, B 192(H) 70 - 140 mg/dL 01/11/2024 12:31 PM CDT PCLX Last Intake 2-3 hours 01/11/2024 12:31 PM CDT PCLX Blood 01/11/2024 12:1 9 PM CDT 01/11/2024 12:31 PM CDT Unknown Provider LAB POCT ORDERABLES- MANUAL Performing Organization Address [facility]/ZIP Co de Phone Number [facility] [address] [place] [address], [place] [facility] [address] [place] [address] * Glucose, POCT (01/11/2024 9:07 AM CDT) Glucose, POCT, B 136 70 - 140 mg/dL 01/11/2024 9:10 AM CDT PCLX Blood 01/11/2024 9:07 AM CDT 01/11/2024 9:10 AM CDT Unknown Provider LAB POCT ORDERABLES- MANUAL Performing Organization Address City/[facility]/ZIP Co de Phone Number [facility] [address] [place] [address], [place] [facility] [address] [place] [address] * Magnesium (01/11/2024 4:39 AM CDT) Magnesium, S 1.9 1.7 - 2.3 mg/dL 01/11/2024 6:18 AM CDT DTL Blood (Blood, Venous) 01/11/2024 4:39 AM CDT 01/11/2024 5:53 AM CDT Bhumika Joy M.D. LAB BLOOD ADD-ON [facility] [address] [place] [address], [facility] [address] [place] [address] * (ABNORMAL) Renal Function Panel (01/11/2024 4:39 AM CDT) Potassium, S 3.6 3.6 - 5.2 mmol/L 01/11/2024 6:18 AM CDT DTL Sodium, S 129(L) 135 - 145 mmol/L 01/11/2024 6:18 AM CDT DTL Chloride, S 96(L) 98 - 107 mmol/L 01/11/2024 6:18 AM CDT DTL Bicarbonate, S 23 22 - 29 mmol/L 01/11/2024 6:18 AM CDT DTL Anion Gap 10 7 - 15 01/11/2024 6:18 AM CDT DTL BUN (Blood Urea Nitrogen), S 13 6 - 21 mg/dL 01/11/2024 6:18 AM CDT DTL Creatinine 0.57(L) 0.59 - 1.04 mg/dL 01/11/2024 6:18 AM CDT DTL Estimated GFR (eGFR) 89 >=60 mL/min/BSA 01/11/2024 6:18 AM CDT DTL Comment: Estimated GFR calculated using the 2020 CKD_EPI creatinine equation. Calcium, Total, S 7.9(L) 8.8 - 10.2 mg/dL 01/11/2024 6:18 AM CDT DTL Glucose, S 189(H) 70 - 140 mg/dL 01/11/2024 6:18 AM CDT DTL Albumin, S 2.7(L) 3.5 - 5.0 g/dL 01/11/2024 6:18 AM CDT DTL Phosphorus (Inorganic), S 2.3(L) 2.5 - 4.5 mg/dL 01/11/2024 6:18 AM CDT DTL Blood (Blood, Venous) 01/11/2024 4:39 AM CDT 01/11/2024 5:53 AM CDT Bhumika Joy M.D. LAB BLOOD ADD-ON Performing Organization Address City/[facility]/ZIP Co de Phone Number [facility] [address] [place] [address], [facility] [address] [place] [address] * (ABNORMAL) CBC without Differential (01/11/2024 4:39 AM CDT) Hemoglobin 9.6(L) 11.6 - 15.0 g/dL 01/11/2024 5:49 AM CDT DTL Hematocrit 28.7(L) 35.5 - 44.9 % 01/11/2024 5:49 AM CDT DTL Erythrocytes 3.27(L) 3.92 - 5.13 x10(12)/L 01/11/2024 5:49 AM CDT DTL MCV 87.8 78.2 - 97.9 fL 01/11/2024 5:49 AM CDT DTL RBC Distrib Width 12.9 12.2 - 16.1 % 01/11/2024 5:49 AM CDT DTL Platelet Count 297 157 - 371 x10(9)/L 01/11/2024 5:49 AM CDT DTL Leukocytes 16.0(H) 3.4 - 9.6 x10(9)/L 01/11/2024 5:49 AM CDT DTL Blood (Blood, Venous) 01/11/2024 4:39 AM CDT 01/11/2024 5:36 AM CDT Bhumika Joy M.D. LAB BLOOD ADD-ON [facility] [address] [place] [address], [facility] DTL [facility] [address] [place] [address] * (ABNORMAL) Glucose, POCT (01/10/2024 9:22 PM CDT) Glucose, POCT, B 236(H) 70 - 140 mg/dL 01/10/2024 9:24 PM CDT PCLX Blood 01/10/2024 9:22 PM CDT 01/10/2024 9:24 PM CDT Unknown Provider LAB POCT ORDERABLES- MANUAL [facility] [address] [place] [address], [facility] PCLX [facility] [address] [place] [address] * (ABNORMAL) Glucose, POCT (01/10/2024 5:25 PM CDT) Glucose, POCT, B 209(H) 70 - 140 mg/dL 01/10/2024 5:28 PM CDT PCLX Site Capillary 01/10/2024 5:28 PM CDT PCLX Blood 01/10/2024 5:25 PM CDT 01/10/2024 5:28 PM CDT Unknown Provider LAB POCT ORDERABLES- MANUAL [facility] [address] [place] [address], [facility] PCLX [facility] [address] [place] [address] * CT Abdomen Pelvis with IV Contrast (01/10/2024 12:51 PM CDT) Anatomical Region Laterality Modality Abdomen, [...] biliary gas, as expected. Bhumika Joy M.D. IMG CT PROCEDURES * (ABNORMAL) Glucose, POCT (01/10/2024 12:11 PM CDT) Glucose, POCT, B 207(H) 70 - 140 mg/dL 01/10/2024 12:13 PM CDT PCLX Site Capillary 01/10/2024 12:13 PM CDT PCLX Last Intake 1-2 hours 01/10/2024 12:13 PM CDT PCLX Blood 01/10/2024 12:1 1 PM CDT 01/10/2024 12:13 PM CDT Unknown Provider LAB POCT ORDERABLES- MANUAL Performing Organization Address City/[facility]/ZIP Co de Phone Number [facility] [address] [place] [address], [facility] PCLX [facility] [address] [place] [address] * (ABNORMAL) Glucose, POCT (01/10/2024 8:06 AM CDT) Glucose, POCT, B 204(H) 70 - 140 mg/dL 01/10/2024 8:15 AM CDT PCLX Site Capillary 01/10/2024 8:15 AM CDT PCLX Last Intake > 4 hours 01/10/2024 8:15 AM CDT PCLX Blood 01/10/2024 8:06 AM CDT 01/10/2024 8:15 AM CDT Unknown Provider LAB POCT ORDERABLES- MANUAL Performing Organization Address City/[facility]/ZIP Co de Phone Number [facility] [address] [place] [address], [place] PCLX [facility] [address] [place] [address] * (ABNORMAL) Renal Function Panel (01/10/2024 4:15 AM CDT) Potassium, S 3.5(L) 3.6 - 5.2 mmol/L 01/10/2024 5:18 AM CDT DTL Sodium, S 130(L) 135 - 145 mmol/L 01/10/2024 5:18 AM CDT DTL Chloride, S 93(L) 98 - 107 mmol/L 01/10/2024 5:18 AM CDT DTL Bicarbonate, S 26 22 - 29 mmol/L 01/10/2024 5:18 AM CDT DTL Anion Gap 11 7 - 15 01/10/2024 5:18 AM CDT DTL BUN (Blood Urea Nitrogen), S 15 6 - 21 mg/dL 01/10/2024 5:18 AM CDT DTL Creatinine 0.51(L) 0.59 - 1.04 mg/dL 01/10/2024 5:18 AM CDT DTL Estimated GFR (eGFR) >90 >=60 mL/min/BSA 01/10/2024 5:18 AM CDT DTL Comment: Estimated GFR calculated using the 2020 CKD_EPI creatinine equation. Calcium, Total, S 8.4(L) 8.8 - 10.2 mg/dL 01/10/2024 5:18 AM CDT DTL Glucose, S 212(H) 70 - 140 mg/dL 01/10/2024 5:18 AM CDT DTL Albumin, S 3.1(L) 3.5 - 5.0 g/dL 01/10/2024 5:18 AM CDT DTL Phosphorus (Inorganic), S 2.4(L) 2.5 - 4.5 mg/dL 01/10/2024 5:18 AM CDT DTL Blood (Blood, Venous) 01/10/2024 4:15 AM CDT 01/10/2024 5:03 AM CDT Bhumika Joy M.D. LAB BLOOD ADD-ON [facility] [address] [place] [address], [place] DTL [facility] [address] [place] [address] * (ABNORMAL) CBC without Differential (01/10/2024 4:15 AM CDT) Hemoglobin 10.8(L) 11.6 - 15.0 g/dL 01/10/2024 4:53 AM CDT DTL Hematocrit 30.9(L) 35.5 - 44.9 % 01/10/2024 4:53 AM CDT DTL Erythrocytes 3.58(L) 3.92 - 5.13 x10(12)/L 01/10/2024 4:53 AM CDT DTL MCV 86.3 78.2 - 97.9 fL 01/10/2024 4:53 AM CDT DTL RBC Distrib Width 13.0 12.2 - 16.1 % 01/10/2024 4:53 AM CDT DTL Platelet Count 326 157 - 371 x10(9)/L 01/10/2024 4:53 AM CDT DTL Leukocytes 20.4(H) 3.4 - 9.6 x10(9)/L 01/10/2024 4:53 AM CDT DTL Blood (Blood, Venous) 01/10/2024 4:15 AM CDT 01/10/2024 4:48 AM CDT Bhumika Joy M.D. LAB BLOOD ADD-ON [address] [address], [facility] [address] [place] [address] * (ABNORMAL) Hepatic Function Panel (01/10/2024 4:10 AM CDT) Bilirubin, Total, S 0.7 0.0 - 1.2 [...] M.D. LAB BLOOD ADD-ON Performing Organization Address City/[facility]/ZIP Co de Phone Number [facility] [address] [place] [address], [facility] DTL [facility] [address] [place] [address] * (ABNORMAL) Glucose, POCT (01/09/2024 8:38 PM CDT) Glucose, POCT, B 222(H) 70 - 140 mg/dL 01/09/2024 8:42 PM CDT PCLX Site Capillary 01/09/2024 8:42 PM CDT PCLX Last Intake 2-3 hours 01/09/2024 8:42 PM CDT PCLX Blood 01/09/2024 8:38 PM CDT 01/09/2024 8:42 PM CDT Unknown Provider LAB POCT ORDERABLES- MANUAL POC [facility] [address] [place] [address], [place] PCLX [facility] POC [address] [place] [address] * (ABNORMAL) Glucose, POCT (01/09/2024 5:27 PM CDT) Glucose, POCT, B 245(H) 70 - 140 mg/dL 01/09/2024 5:33 PM CDT PCLX Site Capillary 01/09/2024 5:33 PM CDT PCLX Last Intake 3-4 hours 01/09/2024 5:33 PM CDT PCLX Blood 01/09/2024 5:27 PM CDT 01/09/2024 5:33 PM CDT Unknown Provider LAB POCT ORDERABLES- MANUAL Performing Organization Address City/[facility]/ZIP Co de Phone Number POC [facility] [address] [place] [address], [facility] PCLX [facility] [address] [place] [address] * (ABNORMAL) Glucose, POCT (01/09/2024 1:29 PM CDT) Glucose, POCT, B 219(H) 70 - 140 mg/dL 01/09/2024 1:30 PM CDT PCLX Last Intake 2-3 hours 01/09/2024 1:30 PM CDT PCLX Blood 01/09/2024 1:29 PM CDT 01/09/2024 1:31 PM CDT Unknown Provider LAB POCT ORDERABLES- MANUAL Performing Organization Address City/[facility]/ZIP Co de Phone Number POC [facility] [address] [place] [address], [facility] PCLX [facility] P[facility] [address] [place] [address] * Interpretation of Outside CT Chest (01/09/2024 [...] the chest Nemesio Paul M.D. IMG CT [place] OCEDURES * (ABNORMAL) Glucose, POCT (01/09/2024 9:09 AM CDT) Glucose, POCT, B 155(H) 70 - 140 mg/dL 01/09/2024 9:21 AM CDT PCLX Site Capillary 01/09/2024 9:21 AM CDT PCLX Last Intake 3-4 hours 01/09/2024 9:21 AM CDT PCLX Blood 01/09/2024 9:09 AM CDT 01/09/2024 9:21 AM CDT Unknown Provider LAB POCT ORDERABLES- MANUAL Performing Organization Address City/[facility] Co de Phone Number POC [facility] [address] [place] [address], [facility] PCLX [facility] P[facility] [address] [place] [address] * Chloride, Random, Urine (01/09/2024 8:24 AM CDT) Chloride, Random, U 138 mmol/L 01/09/2024 9:42 AM CDT DTL Comment: ----REFERENCE VALUE---- Random urine chloride may be interpreted in conjunction with serum chloride, using both values to calculate fractional excretion of chloride. Urine (Urine, Midstream) 01/09/2024 8:24 AM CDT 01/09/2024 8:56 AM CDT Bhumika Joy M.D. LAB URINE ORDERAB LES Performing Organization Address City/[facility]/ZIP Co de Phone Number [facility] [address] [place] [address], [facility] DTL [facility] [address] [place] [address] * Urea, Random, Urine (01/09/2024 8:24 AM CDT) Urea, Random, U 1115 mg/dL 10:11 AM CDT DT Comment: ----REFERENCE VALUE---- Random urine urea may be interpreted in conjunction with serum urea, using both values to calculate fractional excretion of urea. Urine (Urine, Midstream) 01/09/2024 8:24 AM CDT 01/09/2024 8:56 AM CDT Bhumika Joy M.D. LAB URINE ORDERAB LES Performing Organization Address City/[facility]/ZIP Co de Phone Number [facility] [address] [address] * Creatinine, Random, Urine (01/09/2024 8:24 AM CDT) Creatinine, Random, U 43 16 - 326 mg/dL 01/09/2024 9:42 AM CDT DT Urine (Urine, Midstream) 01/09/2024 8:24 AM CDT 01/09/2024 8:56 AM CDT Bhumika Joy M.D. LAB URINE ORDERAB LES Performing Organization Address City/[facility]/ZIP Co de Phone Number [facility] [address] [place] [address], [address] [address] * Sodium, Random, Urine (01/09/2024 8:24 AM CDT) Sodium, Random, U 134 mmol/L 01/09/2024 9:42 AM CDT DT Comment: ----REFERENCE VALUE---- Random urine sodium may be interpreted in conjunction with serum sodium, using both values to calculate fractional excretion of sodium. Urine (Urine, Midstream) 01/09/2024 8:24 AM CDT 01/09/2024 8:56 AM CDT Bhumika Joy M.D. LAB URINE ORDERAB LES Performing Organization Address City/[facility]/[place] [address] * Osmolality, Urine (01/09/2024 8:24 AM CDT) Osmolality, U 564 150 - 1150 mOsm/kg 01/09/2024 9:59 AM CDT DTL Urine (Urine, Midstream) 01/09/2024 8:24 AM CDT 01/09/2024 8:56 AM CDT Bhumika Joy M.D. LAB URINE ORDERAB LES Performing Organization Address [facility] [place] [address] * (ABNORMAL) CBC without Differential (01/09/2024 4:09 AM CDT) Hemoglobin 9.5(L) 11.6 - 15.0 g/dL 01/09/2024 4:54 AM CDT DTL Hematocrit 28.2(L) 35.5 - 44.9 % 01/09/2024 4:54 AM CDT DTL Erythrocytes 3.20(L) 3.92 - 5.13 x10(12)/L 01/09/2024 4:54 AM CDT DTL MCV 88.1 78.2 - 97.9 fL 01/09/2024 4:54 AM CDT DTL RBC Distrib Width 12.9 12.2 - 16.1 % 01/09/2024 4:54 AM CDT DTL Platelet Count 246 157 - 371 x10(9)/L 01/09/2024 4:54 AM CDT DTL Leukocytes 18.1(H) 3.4 - 9.6 x10(9)/L 01/09/2024 4:54 AM CDT DTL Blood (Blood, Venous) 01/09/2024 4:09 AM CDT 01/09/2024 4:47 AM CDT Bhumika Joy M.D. LAB BLOOD ADD-ON [facility] [address] [place] [address], [facility] [address] [place] [address] * (ABNORMAL) Renal Function Panel (01/09/2024 4:09 AM CDT) Potassium, S 3.2(L) 3.6 - 5.2 mmol/L 01/09/2024 6:08 AM CDT DTL Sodium, S 129(L) 135 - 145 mmol/L 01/09/2024 6:08 AM CDT DTL Chloride, S 97(L) 98 - 107 mmol/L 01/09/2024 6:08 AM CDT DTL Bicarbonate, S 22 22 - 29 mmol/L 01/09/2024 6:08 AM CDT DTL Anion Gap 10 7 - 15 01/09/2024 6:08 AM CDT DTL BUN (Blood Urea Nitrogen), S 14 6 - 21 mg/dL 01/09/2024 6:08 AM CDT DTL Creatinine 0.49(L) 0.59 - 1.04 mg/dL 01/09/2024 6:08 AM CDT DTL Estimated GFR (eGFR) >90 >=60 mL/min/BSA 01/09/2024 6:08 AM CDT DTL Comment: Estimated GFR calculated using the 2020 CKD_EPI creatinine equation. Calcium, Total, S 7.9(L) 8.8 - 10.2 mg/dL 01/09/2024 6:08 AM CDT DTL Glucose, S 163(H) 70 - 140 mg/dL 01/09/2024 6:08 AM CDT DTL Albumin, S 2.9(L) 3.5 - 5.0 g/dL 01/09/2024 6:08 AM CDT DTL Phosphorus (Inorganic), S 1.2(L) 2.5 - 4.5 mg/dL 01/09/2024 6:08 AM CDT DTL Blood (Blood, Venous) 01/09/2024 4:09 AM CDT 01/09/2024 5:06 AM CDT Bhumika Joy M.D. LAB BLOOD ADD-ON Performing Organization Address City/[facility]/ZIP Co de Phone Number [facility] [address] [place], [place] [id number] [place] [address] [address] [place] [address] * Magnesium (01/09/2024 4:09 AM CDT) Pathologist [facility] Magnesium, S 1.7 1.7 - 2.3 mg/dL 01/09/2024 6:08 AM CDT DT Blood (Blood, Venous) 01/09/2024 4:09 AM CDT 01/09/2024 5:06 AM CDT Bhumika Joy M.D. LAB BLOOD ADD-ON Performing Organization Address City/[facility] Co de Phone Number [facility] [address] [place], [place] [id number] [place] [address] [address] [place] [address] * (ABNORMAL) Osmolality (01/09/2024 4:09 AM CDT) [facility] Osmolality, S 274(L) 275 - 295 mOsm/kg 01/09/2024 5:57 AM CDT DT Blood (Blood, Venous) 01/09/2024 4:09 AM CDT 01/09/2024 5:06 AM CDT Bhumika Joy M.D. LAB BLOOD ADD-ON [facility] [address] [place], [place] [address] [place] [address] [address] [place] [address] * (ABNORMAL) Glucose, POCT (01/08/2024 10:26 PM CDT) Glucose, POCT, B 232(H) 70 - 140 mg/dL 01/08/2024 10:30 PM CDT PCLX Site Capillary 01/08/2024 10:30 PM CDT PCLX Last Intake > 4 hours 01/08/2024 10:30 PM CDT PCLX Blood 01/08/2024 10:2 6 PM CDT 01/08/2024 10:30 PM CDT Unknown Provider LAB POCT ORDERABLES- MANUAL Performing Organization Address City/[facility]/ZIP Co de Phone Number POC [facility] [address] [place] [address], [facility] PCLX [facility] [address] [place] [address] * (ABNORMAL) Glucose, POCT (01/08/2024 6:01 PM CDT) Glucose, POCT, B 213(H) 70 - 140 mg/dL 01/08/2024 6:45 PM CDT PCLX Site Capillary 01/08/2024 6:45 PM CDT PCLX Last Intake 3-4 hours 01/08/2024 6:45 PM CDT PCLX Blood 01/08/2024 6:01 PM CDT 01/08/2024 6:45 PM CDT Unknown Provider LAB POCT ORDERABLES- MANUAL Performing Organization Address [facility]/ZIP Co de Phone Number POC [facility] [address] [place] [address], [facility] PCLX [facility] [address] [place] [address] * (ABNORMAL) Glucose, POCT (01/08/2024 1:07 PM CDT) Glucose, POCT, B 298(H) 70 - 140 mg/dL 01/08/2024 1:09 PM CDT PCLX Last Intake 2-3 hours 01/08/2024 1:09 PM CDT PCLX Blood 01/08/2024 1:07 PM CDT 01/08/2024 1:10 PM CDT Unknown Provider LAB POCT ORDERABLES- MANUAL POC [facility] [address] [place] [address], [place] PCLX [facility] [address] [place] [address] * (ABNORMAL) Comprehensive Metabolic Panel (01/08/2024 9:43 AM CDT) Potassium, S 3.2(L) 3.6 - 5.2 mmol/L [...] Jr., M.D., M.B.A. LAB BLO OD ADD-ON [facility] [address] [place] [address], [facility] [address] [place] [address] * (ABNORMAL) CBC with Differential, Blood (01/08/2024 9:43 AM CDT) Pathologist [facility] Hemoglobin 10.8(L) 11.6 - 15.0 g/dL 01/08/2024 [...] Jr., M.D., M.B.A. LAB BLO OD ADD-ON Performing Organization Address City/[facility]/ZIP Co de Phone Number [facility] [address] [place] [address], [facility] STMA [facility] [address] [place] [address] DHPM [facility] [address] [place] [address] * (ABNORMAL) Glucose, POCT (01/08/2024 8:50 AM CDT) [facility] Glucose, POCT, B 187(H) 70 - 140 mg/dL 01/08/2024 9:04 AM CDT PCLX Site Capillary 01/08/2024 9:04 AM CDT PCLX Last Intake > 4 hours 01/08/2024 9:04 AM CDT PCLX Blood 01/08/2024 8:50 AM CDT 01/08/2024 9:04 AM CDT Unknown Provider LAB POCT ORDERABLES- MANUAL POC [facility] [address] [place] [address], [facility] PCLX [facility] POC [address] [place] [address] * DX Abdomen 1 View (01/08/2024 8:26 [...] stent right upper quadrant. Bilateral hiparthroplasties. Bhumika oJy M.D. IMG DIAGNOSTIC IM AGING PROCEDURES * (ABNORMAL) Glucose, POCT (01/07/2024 8:17 PM CDT) Glucose, POCT, B 173(H) 70 - 140 mg/dL 01/07/2024 8:27 PM CDT PCLX Site Capillary 01/07/2024 8:27 PM CDT PCLX Last Intake 2-3 hours 01/07/2024 8:27 PM CDT PCLX Blood 01/07/2024 8:17 PM CDT 01/07/2024 8:27 PM CDT Unknown Provider LAB POCT ORDERABLES- MANUAL POC [facility] [address] [place], [place] [address] PCLX [facility] POC [address] [place] [address] * (ABNORMAL) Glucose, POCT (01/07/2024 6:36 PM CDT) Glucose, POCT, B 204(H) 70 - 140 mg/dL 01/07/2024 6:42 PM CDT PCLX Site Capillary 01/07/2024 6:42 PM CDT PCLX Last Intake 3-4 hours 01/07/2024 6:42 PM CDT PCLX Blood 01/07/2024 6:36 PM CDT 01/07/2024 6:42 PM CDT Unknown Provider LAB POCT ORDERABLES- MANUAL POC [facility] [address] [place] [address], [place] [facility] [address] [place] [address] * (ABNORMAL) Glucose, POCT (01/07/2024 12:08 PM CDT) Glucose, POCT, B 215(H) 70 - 140 mg/dL 01/07/2024 12:27 PM CDT PCLX Site Capillary 01/07/2024 12:27 PM CDT PCLX Last Intake 1-2 hours 01/07/2024 12:27 PM CDT PCLX Blood 01/07/2024 12:0 8 PM CDT 01/07/2024 12:27 PM CDT Unknown Provider LAB POCT ORDERABLES- MANUAL Performing Organization Address City/[facility]/ZIP Co de Phone Number POC [facility] [address] [place] [address], [facility] PCLX [facility] POC [address] [place] [address] * (ABNORMAL) Glucose, POCT (01/07/2024 9:10 AM CDT) Glucose, POCT, B 191(H) 70 - 140 mg/dL 01/07/2024 9:36 AM CDT PCLX Site Capillary 01/07/2024 9:36 AM CDT PCLX Last Intake 3-4 hours 01/07/2024 9:36 AM CDT PCLX Blood 01/07/2024 9:10 AM CDT 01/07/2024 9:36 AM CDT Unknown Provider LAB POCT ORDERABLES- MANUAL POC [facility] [address] [place] [address], [place] [facility] [address] [place] [address] * (ABNORMAL) Glucose, POCT (01/06/2024 9:21 PM CDT) Glucose, POCT, B 198(H) 70 - 140 mg/dL 01/06/2024 9:25 PM CDT PCLX Site Capillary 01/06/2024 9:25 PM CDT PCLX Last Intake 3-4 hours 01/06/2024 9:25 PM CDT PCLX Blood 01/06/2024 9:21 PM CDT 01/06/2024 9:26 PM CDT Unknown Provider LAB POCT ORDERABLES- MANUAL POC [facility] [address] [place] [address], [facility] PCLX [facility] POC [address] [place] [address] * (ABNORMAL) Glucose, POCT (01/06/2024 5:27 PM CDT) Glucose, POCT, B 201(H) 70 - 140 mg/dL 01/06/2024 5:30 PM CDT PCLX Blood 01/06/2024 5:27 PM CDT 01/06/2024 5:31 PM CDT Unknown Provider LAB POCT ORDERABLES- MANUAL POC [facility] [address] [place] [address], [facility] PCLX [facility] POC [address] [place] [address] * (ABNORMAL) Glucose, POCT (01/06/2024 3:11 PM CDT) Glucose, POCT, B 203(H) 70 - 140 mg/dL 01/06/2024 3:18 PM CDT PCLX Site Capillary 01/06/2024 3:18 PM CDT PCLX Blood 01/06/2024 3:11 PM CDT 01/06/2024 3:18 PM CDT Unknown Provider LAB POCT ORDERABLES- MANUAL Performing Organization Address City/[facility] Co de Phone Number POC [facility] [address] [place] [address], [facility] PCLX [facility] POC [address] [place] [address] * (ABNORMAL) Glucose, POCT (01/06/2024 7:50 AM CDT) Glucose, POCT, B 152(H) 70 - 140 mg/dL 01/06/2024 7:52 AM CDT PCLX Site Capillary 01/06/2024 7:52 AM CDT PCLX Blood 01/06/2024 7:50 AM CDT 01/06/2024 7:53 AM CDT Unknown Provider LAB POCT ORDERABLES- MANUAL Performing Organization Address City/[facility] Co de Phone Number POC [facility] [address] [place] [address], [facility] PCLX [facility] POC [address] [place] [address] * (ABNORMAL) Comprehensive Metabolic Panel (01/06/2024 6:31 AM CDT) Potassium, S 4.5 3.6 - 5.2 mmol/L 01/06/2024 8:01 AM CDT DTL Sodium, S 135 135 - 145 mmol/L 01/06/2024 8:01 AM CDT DTL Chloride, S 100 98 - 107 mmol/L 01/06/2024 8:01 AM CDT DTL Bicarbonate, S 24 22 - 29 mmol/L 01/06/2024 8:01 AM CDT DTL Anion Gap 11 7 - 15 01/06/2024 8:01 AM CDT DTL BUN (Blood Urea Nitrogen), S 17 6 - 21 mg/dL 01/06/2024 8:01 AM CDT DTL Creatinine 0.71 0.59 - 1.04 mg/dL 01/06/2024 8:01 AM CDT DTL Estimated GFR (eGFR) 83 >=60 mL/min/BS A 01/06/2024 8:01 AM CDT DTL Comment: Estimated GFR calculated using the 2020 CKD_EPI creatinine equation. Calcium, Total, S 9.3 8.8 - 10.2 mg/dL 01/06/2024 8:01 AM CDT DTL Glucose, S 184(H) 70 - 140 mg/dL 01/06/2024 8:01 AM CDT DTL Protein, Total, S 6.6 6.3 - 7.9 g/dL 01/06/2024 8:01 AM CDT DTL Albumin, S 3.8 3.5 - 5.0 g/dL 01/06/2024 8:01 AM CDT DTL Aspartate Aminotransferase (AST), S 35 8 - 43 U/L 01/06/2024 8:01 AM CDT DTL Alkaline Phosphatase, S 125(H) 35 - 104 U/L 01/06/2024 8:01 AM CDT DTL Alanine Aminotransferase (ALT), S 30 7 - 45 U/L 01/06/2024 8:01 AM CDT DTL Bilirubin, Total, S 0.8 0.0 - 1.2 mg/dL 01/06/2024 8:01 AM CDT DTL Blood (Blood, Venous) 01/06/2024 6:31 AM CDT 01/06/2024 7:31 AM CDT Annalisa Diaz M.D. LAB BLOOD ADD-ON [address] [address], [facility] [place] [address] * (ABNORMAL) CBC with Differential, Blood (01/06/2024 6:31 AM CDT) Hemoglobin 11.4(L) 11.6 - 15.0 g/dL 01/06/2024 7:12 AM CDT DTL Hematocrit 35.4(L) 35.5 - 44.9 % 01/06/2024 7:12 AM CDT DTL Erythrocytes 3.88(L) 3.92 - 5.13 x10(12)/L 01/06/2024 7:12 AM CDT DTL MCV 91.2 78.2 - 97.9 fL 01/06/2024 7:12 AM CDT DTL RBC Distrib Width 12.9 12.2 - 16.1 % 01/06/2024 7:12 AM CDT DTL Platelet Count 312 157 - 371 x10(9)/L 01/06/2024 7:12 AM CDT DTL Leukocytes 14.5(H) 3.4 - 9.6 x10(9)/L 01/06/2024 7:12 AM CDT DTL Neutrophils 12.22(H) 1.56 - 6.45 x10(9)/L 01/06/2024 7:12 AM CDT DHPM Lymphocytes 1.35 0.95 - 3.07 x10(9)/L 01/06/2024 7:12 AM CDT DTL Monocytes 0.86(H) 0.26 - 0.81 x10(9)/L 01/06/2024 7:12 AM CDT DTL Eosinophils 0.04 0.03 - 0.48 x10(9)/L 01/06/2024 7:12 AM CDT DTL Basophils 0.05 0.01 - 0.08 x10(9)/L 01/06/2024 7:12 AM CDT DTL Blood (Blood, Venous) 01/06/2024 6:31 AM CDT 01/06/2024 7:03 AM CDT Annalisa Diaz M.D. LAB BLOOD ADD-ON [facility] [address] [place] [address], [facility] DTL [facility] [address] [place] [address] [facility] [address] [place] [address] * (ABNORMAL) Glucose, POCT (01/06/2024 4:52 AM CDT) [facility] Glucose, POCT, B 194(H) 70 - 140 mg/dL 01/06/2024 4:54 AM CDT PCLX Blood 01/06/2024 4:52 AM CDT 01/06/2024 4:54 AM CDT Unknown Provider LAB POCT ORDERABLES- MANUAL POC [facility] [address] [place] [address], [place] PCLX [facility] [place] POC [address] [place] [address] * ECG 12 Lead (01/06/2024 2:39 AM CDT) Ventricular Rate ECG/Min 83 BPM MUSE [place] Interval 158 ms MUSE QRSD Interval 84 ms MUSE QT Interval 384 ms MUSE QTC Interval 451 ms MUSE P [place] 69 degrees MUSE R [place] 62 degrees MUSE T Wave [place] 75 degrees MUSE 01/06/2024 2:39 AM CDT 01/06/2024 2:41 AM CDT Impressions MUSE - 01/06/2024 2:41 AM CDT Normal sinus rhythm Normal ECG No previous ECGs available Reviewed by NELSON Lanza Narrative Procedure Note Braulio Roca M.D. - 01/06/2024 IMPRESSION: Normal sinus rhythm Normal ECG No previous ECGs available Reviewed by NELSON Lanza Ashley Mcgraw M.D. ECG ORDERABLES Performing Organization Address City/[facility] Co de Phone Number MUSE NA * CT Abdomen Pelvis with IV Contrast (01/06/2024 1:40 AM CDT) Anatomical Region Laterality Modality Abdomen, Pelvis, Abdominal R ST LOS, Abdominal ARZ LOS, Abdominal FLA LOS N/A Computed Tomograp hy, Computed Tomography 01/06/2024 1:37 AM CDT Impressions 01/06/2024 10:03 AM CDT 1. ??Findings consistent with acute uncomplicated interstitial pancreatitis involving the pancreatic head and uncinate process with mild associated inflammation about the proximal duodenum. Findings are likely reactive from recent ERCP. 2. ??Interval ERCP with new common bile duct stent. Slightly improved intrahepatic and extrahepatic biliary ductal dilation. Similar mild inflammation of the biliary tree. Narrative 01/06/2024 10:03 AM CDT EXAM: ??CT ABDOMEN PELVIS WITH IV CONTRAST COMPARISON: ??Outside CT abdomen pelvis 12/12/2023 FINDINGS: ??New diffuse edema and adjacent inflammatory stranding involving the pancreatic head and uncinate process consistent with acute pancreatitis. Inflammatory stranding extends to the central mesentery and inferiorly along the right paracolic gutter and peritoneum. Inflammation about the proximal duodenum. No discrete fluid collections. New common bile duct stent, which is patent. Slightly improved mild intrahepatic and extrahepatic biliary ductal dilation. New pneumobilia. Similar mild inflammation of the biliary tree The gallbladder is contracted. Otherwise normal appearance of liver. Patent portal and hepatic veins. The spleen and left adrenal gland are normal. Stable right adrenal nodule. Symmetric nephrograms without hydronephrosis. Small esophageal hiatal hernia. Normal caliber small bowel and colon without obstruction. Enteric contrast within the distal colon and a few loops of distal small bowel. Colonic diverticula. Normal caliber abdominal aorta with mixed calcified and noncalcified atherosclerotic plaque. No abdominal or pelvic lymphadenopathy. Bilateral THAs. Hypertrophic and degenerative changes of the spine Procedure Note Clau Shannon M.D. - 01/06/2024 EXAM: CT ABDOMEN PELVIS WITH IV CONTRAST COMPARISON: Outside CT abdomen pelvis 12/12/2023 FINDINGS: New diffuse edema and adjacent inflammatory stranding involvingthe pancreatic head and uncinate process consistent with acutepancreatitis. Inflammatory stranding extends to the central mesentery andinferiorly along the right paracolic gutter and peritoneum. Inflammation about the proximal duodenum. Nodiscrete fluid collections. New common bile duct stent, which is patent. Slightly improved mildintrahepatic and extrahepatic biliary ductal dilation. New pneumobilia.Similar mild inflammation of the biliary tree The gallbladder iscontracted. Otherwise normal appearance of liver. Patent portal and hepatic veins. Thespleen and left adrenal gland are normal. Stable right adrenal nodule.Symmetric nephrograms without hydronephrosis. Small esophageal hiatalhernia. Normal caliber small bowel and colon without obstruction. Enteric contrast within the distal colon and afew loops of distal small bowel. Colonic diverticula. Normal caliber abdominal aorta with mixed calcified and noncalcifiedatherosclerotic plaque. No abdominal or pelvic lymphadenopathy. Bilateral THAs. Hypertrophic and degenerative changes of the spine IMPRESSION: 1. Findings consistent with acute uncomplicated interstitial pancreatitisinvolving the pancreatic head and uncinate process with mild associatedinflammation about the proximal duodenum. Findings are likely reactivefrom recent ERCP. 2. Interval ERCP with new common bile duct stent. Slightly improvedintrahepatic and extrahepatic biliary ductal dilation. Similar mildinflammation of the biliary tree. Ky Carr D.O. IMJayne CT PROCEDURES * (ABNORMAL) Dipstick, POCT, Urine (01/06/2024 12:49 AM CDT) Glucose, POCT, U 500(A) Negative mg/dL 01/06/2024 12:51 AM CDT PCED Ketone, POCT, U Trace(A) Negative mg/dL 01/06/2024 12:51 AM CDT PCED Specific [place], POCT, U 1.025 1.005 - 1.030 01/06/2024 [...] Unknown Provider LAB POCT ORDERABLES - DEVICE POC RST [facility] OUT[facility]IENT LABS [address] [place] [address], [facility] PCED [facility] POC [address] [place] [address] * (ABNORMAL) Dipstick, Urine (01/06/2024 12:29 AM CDT) Hemoglobin, QL, U Trace(A) Negative 01/06/2024 1:24 AM CDT DTL Leukocyte Esterase, U Negative Negative 01/06/2024 1:24 AM CDT DTL Nitrite, U Negative Negative 01/06/2024 1:24 AM CDT DTL Ketone, U 5(A) Negative mg/dL 01/06/2024 1:24 AM CDT DTL Glucose, U >=1000(A) Negative mg/dL 01/06/2024 1:24 AM CDT DTL Urine 01/06/2024 12:2 9 AM CDT 01/06/2024 1:12 AM CDT Ashley Mcgraw M.D. LAB URINE ORDERABLES Performing Organization Address City/[facility]/ZIP Co de Phone Number [facility] [address] [place], [place] [id number] [place] [address] [address] [place] [address] * Osmolality, Urine (01/06/2024 12:29 AM CDT) Osmolality, U 605 150 - 1150 mOsm/kg 01/06/2024 1:32 AM CDT DTL Urine 01/06/2024 12:2 9 AM CDT 01/06/2024 1:12 AM CDT Ashley Mcgraw M.D. LAB URINE ORDERABLES Performing Organization Address [facility] Co de Phone Number [facility] [address] [place], [place] [id number] [place] [address] 200 [place] [address] * pH, Random, Urine (01/06/2024 12:29 AM CDT) pH, Random, U 6.0 4.5 - 8.0 01/06/2024 1:32 AM CDT DTL Urine 01/06/2024 12:2 9 AM CDT 01/06/2024 1:12 AM CDT Ashley Mcgraw M.D. LAB URINE ORDERABLES [facility] [address] [place], [place] [id number] [place] [address] 200 [place] [address] * Microscopic Manual (01/06/2024 12:29 AM CDT) Microscopy Normal 01/06/2024 1:39 AM CDT DTL RBC <3 <3 /hpf 01/06/2024 1:39 AM CDT DTL WBC None Seen /hpf 01/06/2024 1:39 AM CDT DTL Comment: ----REFERENCE VALUE---- <4 ??(Males) <11 (Females) Urine 01/06/2024 12:2 9 AM CDT 01/06/2024 1:12 AM CDT Ashley Mcgraw M.D. LAB URINE ORDERABLES Performing Organization Address [facility] Co de Phone Number [facility] [address] [place], [place] [phone] [place] [address] 200 [place] [address] * Bacterial Culture, Aerobic + Susceptibility, Urine (01/06/2024 12:29 AM CDT) [facility] Urine Culture No growth after 1 day of incubation. 01/07/2024 8:52 AM CDT DT Urine (Urine, Straight Catheter) 01/06/2024 12:29 AM CDT 01/06/2024 3:35 AM CDT Comment:Specimen Source Site : Urine Ashley Mcgraw M.D. LAB MICROBIOLOGY - G ENERAL ORDERABLES Performing Organization Address [facility] Co de Phone Number [facility] [address] [place] [address] * (ABNORMAL) Urinalysis, with Microscopic: Urine, Straight Catheter (01/06/2024 12:29 AM CDT) Source Urine, Urine, Straight Catheter 01/06/2024 1:12 AM CDT DTL Color, U Yellow 01/06/2024 1:12 AM CDT DTL Clarity, U Clear 01/06/2024 1:12 AM CDT DTL Protein, U 44(H) <26 mg/dL 01/06/2024 1:45 AM CDT DTL Protein/Osmola lity 0.73(H) <0.42 ratio 01/06/2024 1:45 AM CDT DTL Predicted 24 HR Protein, U 501(H) <229 mg/24 h 01/06/2024 1:45 AM CDT DTL Predicted Range 124-2028 mg/24 h 01/06/2024 1:45 AM CDT DTL Comment Micro done on <10 mL 01/06/2024 1:38 AM CDT DTL Urine (Urine, Straight Catheter) 01/06/2024 12:29 AM CDT 01/06/2024 1:12 AM CDT Ashley Mgcraw [place].D. [place] [address] * (ABNORMAL) Prothrombin Time (PT) (01/06/2024 12:28 AM CDT) Prothrombin Time, P 14.5(H) 9.4 - 12.5 sec 01/06/2024 12:39 AM CDT STMA INR 1.3 0.9 - 1.1 01/06/2024 12:39 AM CDT STMA Comment: ----ADDITIONAL INFORMATION---- Standard intensity warfarin therapeutic range: 2.0 to 3.0 ?? High intensity warfarin therapeutic range: 2.5 to 3.5 Blood (Blood, Venous) 01/06/2024 12:28 AM CDT 01/06/2024 12:32 AM CDT Ashley Mcgraw M.D. LAB BLOOD ADD-ON Performing Organization Address City/[facility]/ZIP Co de Phone Number [facility] [address] [place], [place] [phone] [place] [address] 200 [place] [address] * Lactate (01/05/2024 11:23 PM CDT) [facility] Lactate, P 1.9 0.5 - 2.2 mmol/L 01/05/2024 11:44 PM CDT STMA Blood (Blood, Venous) 01/05/2024 11:23 PM CDT 01/05/2024 11:29 PM CDT Ky Carr D.O. LAB BLOOD NON ADD-ON Performing Organization Address [facility] Co de Phone Number [facility] [address] [place] [address], [place] [address] * (ABNORMAL) CBC with Differential, Blood (01/05/2024 11:23 PM CDT) [facility] Hemoglobin 12.1 11.6 - 15.0 g/dL 01/05/2024 11:31 PM CDT STMA Hematocrit 35.7 35.5 - 44.9 % 01/05/2024 11:31 PM CDT STMA Erythrocytes 4.02 3.92 - 5.13 x10(12)/L 01/05/2024 11:31 PM CDT STMA MCV 88.8 78.2 - 97.9 fL 01/05/2024 11:31 PM CDT STMA RBC Distrib Width 12.8 12.2 - 16.1 % 01/05/2024 11:31 PM CDT STMA Platelet Count 290 157 - 371 x10(9)/L 01/05/2024 11:31 PM CDT STMA Leukocytes 13.5(H) 3.4 - 9.6 x10(9)/L 01/05/2024 11:31 PM CDT STMA Neutrophils 12.03(H) 1.56 - 6.45 x10(9)/L 01/05/2024 11:31 PM CDT DHPM Lymphocytes 0.70(L) 0.95 - 3.07 x10(9)/L 01/05/2024 11:31 PM CDT STMA Monocytes 0.69 0.26 - 0.81 x10(9)/L 01/05/2024 11:31 PM CDT STMA Eosinophils <0.03 0.03 - 0.48 x10(9)/L 01/05/2024 11:31 PM CDT STMA Basophils 0.04 0.01 - 0.08 x10(9)/L 01/05/2024 11:31 PM CDT STMA Blood (Blood, Venous) 01/05/2024 11:23 PM CDT 01/05/2024 11:29 PM CDT Ky Carr D.O. LAB BLOOD ADD-ON Performing Organization Address City/[facility]/ZIP Co de Phone Number [facility] [address] STMA [facility] [address] [place] [address] [facility] [address] [place] [address] * (ABNORMAL) Lipase (01/05/2024 11:23 PM CDT) Lipase, S 2948(H) 13 - 60 U/L 01/06/2024 2:20 AM CDT DTL Blood (Blood, Venous) 01/05/2024 11:23 PM CDT 01/05/2024 11:45 PM CDT Ky Carr D.O. LAB BLOOD ADD-ON [facility] [address] [place] [address] * (ABNORMAL) Hepatic Function Panel (01/05/2024 11:23 PM CDT) Bilirubin, Total, S 0.6 0.0 - 1.2 mg/dL 01/06/2024 12:49 AM CDT DTL Bilirubin, Direct, S 0.3 0.0 - 0.3 mg/dL 01/06/2024 12:49 AM CDT DTL Aspartate Aminotransferase (AST), S 41 8 - 43 U/L 01/06/2024 12:49 AM CDT DTL Alanine Aminotransferase (ALT), S 35 7 - 45 U/L 01/06/2024 12:49 AM CDT DTL Alkaline Phosphatase, S 139(H) 35 - 104 U/L 01/06/2024 12:49 AM CDT DTL Albumin, S 4.1 3.5 - 5.0 g/dL 01/06/2024 12:49 AM CDT DTL Protein, Total, S 7.0 6.3 - 7.9 g/dL 01/06/2024 12:49 AM CDT DTL Blood (Blood, Venous) 01/05/2024 11:23 PM CDT 01/05/2024 11:45 PM CDT Ky Carr D.O. LAB BLOOD ADD-ON [place] [address] [place] [address], [facility] [address] [place] [address] * (ABNORMAL) Basic Metabolic Panel (01/05/2024 11:23 PM CDT) Potassium, P 4.5 3.6 - 5.2 mmol/L [...] D.O. LAB BLOOD ADD-ON Performing Organization Address City/State/[facility] Co de Phone Number [facility] [address] [place] [address], [facility] [address] [place] [address] documented in this encounter Visit Diagnoses Diagnosis Pancreatitis Post Endoscopic Retrograde Cholangiopancreatography (HCC)- Primary Pancreatitis Post Endoscopic Retrograde Cholangiopancreatography (HCC) Debility [R53.81] Decline Functional Status [R53.81] Stricture Biliary (HCC) Dysphagia [R13.10] Diabetes Mellitus Type 2 Without Complication (HCC) Stricture Biliary (HCC) Infarction Cerebral (HCC) Delirium documented in this encounter Admitting Diagnoses Diagnosis Pancreatitis Post Endoscopic Retrograde Cholangiopancreatography (HCC) documented in this encounter Administered Medications Inactive Administered Medications - up to 3 most recent administrations Medication Order MAR Action Action Date Dose Rate Site acetaminophen tablet 650 mg (TYLENOL) 650 mg, oral, Every 6 hours PRN, mild pain or score 1-3 of 10, headaches, Starting on 01/06/24 at 0547 Given 01/07/2024 8:19 PM CDT 650 mg Given 01/06/2024 8:02 PM CDT 650 mg acetaminophen tablet 650 mg (TYLENOL) 650 mg, oral, Every 6 hours, First dose (after last modification) on 01/08/24 at 0630 Given 01/11/2024 3:20 AM CDT 650 mg Given 01/10/2024 5:38 PM CDT 650 mg Given 01/10/2024 1:00 PM CDT 650 mg acetaminophen tablet 650 mg (TYLENOL) 650 mg, oral, Every 6 hours PRN, mild pain or score 1-3 of 10, Starting on Iza 01/11/24 at 0330 Given 01/12/2024 8:37 AM CDT 650 mg Given 01/11/2024 10:28 PM CDT 650 mg [id number]-[id number] in Lipoderm 2%-5%-5% cream 1 g 1 g, topical, 3 times daily PRN, For pain, Starting on 01/07/24 at 1301 Given 01/11/2024 10:29 PM CDT 1 g Given 01/10/2024 10:07 PM CDT 1 g Given 01/08/2024 9:00 AM CDT [address] tablet 81 mg 81 mg, oral, Daily, First dose (after last modification) on 01/06/24 at 1430, Swallow whole. Do NOT crush, chew, or split tablet. Given 01/14/2024 8:32 AM CDT 81 mg Given 01/13/2024 8:45 AM CDT 81 mg Given 01/12/2024 8:37 AM CDT 81 mg atorvastatin tablet 20 mg (LIPITOR) 20 mg, oral, Daily with dinner, First dose on 01/06/24 at 1700 Given 01/13/2024 5:44 PM CDT 20 mg Given 01/12/2024 5:04 PM CDT 20 mg Given 01/11/2024 5:24 PM CDT 20 mg calcium carbonate chewable tablet 200 mg of calcium (TUMS) 200 mg of calcium, oral, 3 times daily PRN, heartburn, indigestion, Starting on 01/09/24 at 1334, Doses listed are in mg of elemental calcium. Take with food. 500 mg calcium carbonate contains 200 mg of elemental calcium. Given 01/09/2024 2:31 PM CDT 200 mg of calci um calcium carbonate chewable tablet 200 mg of calcium (TUMS) 200 mg of calcium, oral, Daily, First dose on 01/13/24 at 0900, Doses listed are in mg of elemental calcium. Take with food. 500 mg calcium carbonate contains 200 mg of elemental calcium. Given 01/14/2024 8:32 AM CDT 200 mg of calci um Given 01/13/2024 8:45 AM CDT 200 mg of calcium cholecalciferol (vitamin D3) tablet 25 mcg 25 mcg, oral, Daily, First dose on 01/06/24 at 0900, cholecalciferol (vitamin D3) orderable was interchanged for cholecalciferol (vitamin D3) tablet/capsule Given 01/14/2024 8:32 AM C DT 25 mcg Given 01/13/2024 8:45 AM CDT 25 mcg Given 01/12/2024 8:37 AM CDT 25 mcg fentaNYL injection 50 mcg (SUBLIMAZE) 50 mcg, intravenous, Once, On Mon01/05/24 at 2352, For 1 dose Given 01/06/2024 12:30 AM CDT 50 mcg heparin (porcine) injection 5,000 Units 5,000 Units, subcutaneous, Every 8 hours scheduled, First dose on 01/06/24 at 0600 Given 01/14/2024 6:01 AM CDT 5,000 Units Left Lower Abdomen Given 01/13/2024 9:12 PM CDT 5,000 Units R ight Lower Abdomen Given 01/13/2024 5:45 PM CDT 5,000 Units L eft Upper Arm (Back) HYDROmorphone (PF) injection 0.4 mg (DILAUDID) 0.4 mg, intravenous, Every 1 hour PRN, severe pain or score 7-10 of 10, Starting on 01/06/24 at 0308 Given 01/07/2024 9:30 AM CDT 0.4 mg Given 01/06/2024 11:13 AM CDT 0.4 mg HYDROmorphone tablet 2 mg (DILAUDID) 2 mg, oral, Every 4 hours PRN, moderate pain or score 4-6 of 10, severe pain or score 7-10 of 10, Starting on 01/06/24 at 0308 Given 01/13/2024 5:57 AM CDT 2 mg Given 01/11/2024 10:28 PM CDT 2 mg Given 01/11/2024 3:19 AM CDT 2 mg insulin aspart U-100 injection 0-7 Units (NovoLOG FlexPen) 0-7 Units, subcutaneous, 3 times daily, First dose on Mon01/09/24 at 1200, Insulin Scale: Mild Correction Scale, 180 - 219: 2 units, 220 - 259: 3 units, 260 - 299: 4 units, 300 - 339: 5 units, 340 - 379: 6 units, 380 - 399: 7 units, Greater than 399: Call service writing Insulin orders Given 01/14/2024 8:33 AM CDT 2 Units Left Upper Arm (Back ) Given 01/13/2024 5:44 PM CDT 2 Units Ri ght Upper Arm (Back) Given 01/13/2024 12:33 PM CDT 2 Units L eft Upper Arm (Back) insulin regular injection 5 Units 5 Units, subcutaneous, Once, On Mon01/06/24 at 0237, For 1 dose, Use subcutaneous insulin syringe to administer if ordered for subcutaneous route. Given 01/06/2024 2:49 AM CDT 5 Units Right Upper Arm (Back) iohexoL 300 mg iodine/mL solution 1-200 mL (OMNIPAQUE) 1-200 mL, intravenous, Once in imaging, contrast, Starting on Mon01/06/24 at 0129, For 1 dose, Imaging Protocol Orders, Dose per Radiant Medication Guidelines Given 01/06/2024 1:29 AM CDT 100 mL iohexoL 300 mg iodine/mL solution 1-200 mL (OMNIPAQUE) 1-200 mL, intravenous, Once in imaging, contrast, Starting on Mon01/10/24 at 1223, For 1 dose, Imaging Protocol Orders, Dose per Radiant Medication Guidelines Given 01/10/2024 12:51 PM CDT 100 mL Lactated Ringer's bolus 1,000 mL 1,000 mL, intravenous, at 1,000 mL/hr, Administer over 1 Hours, Once, On Mon01/06/24 at 0330, For 1 dose New Bag 01/06/2024 3:18 AM CDT 1,000 mL 1000 mL/hr Lactated Ringer's 100 mL/hr, intravenous, Continuous, Starting on Mon01/06/24 at 0330, For 15 days New Bag 01/06/2024 2:43 PM CDT 100 mL/hr 100 mL/hr New Bag 01/06/2024 3:18 AM CDT 100 mL/hr 100 mL/hr Lactated Ringer's 125 mL/hr, intravenous, Continuous, Starting on Mon01/07/24 at 1345, For 10 hours Rate/Dose Verify 01/07/2024 8:00 PM CDT 125 mL/hr 125 mL/hr New Bag 01/07/2024 6:58 PM CDT 125 mL/hr 125 mL/hr New Bag 01/07/2024 1:55 PM CDT 125 mL/hr 125 mL/hr Lactated Ringer's 125 mL/hr, intravenous, Continuous, Starting on Mon01/08/24 at 1045, For 10 hours New Bag 01/08/2024 11:21 AM CDT 125 mL/hr 125 mL/hr Lactated Ringer's 125 mL/hr, intravenous, Continuous, Starting on Mon01/10/24 at 1745, For 10 hours New Bag 01/10/2024 5:42 PM CDT 125 mL/hr 125 mL/hr lactulose solution 10 g (CHRONULAC) 10 g, oral, Every 4 hours, First dose on Mon01/08/24 at 1200, For 8 doses, Stop after patient has a bowel movement Given 01/08/2024 3:26 PM CDT 10 g Given 01/08/2024 11:42 AM CDT 10 g lidocaine 5 % 1 patch (LIDODERM) 1 patch, transdermal, Administer over 12 Hours, Daily PRN, for pain, Starting on Mon01/07/24 at 1300, Remove after 12 hours. Medication Applied 01/08/2024 9:00 AM CDT 1 patch Left Upper Abdomen Medication Applied 01/07/2024 3:45 PM CDT 1 patch Right Lower Abdomen lidocaine viscous 2 % 15 mL, alum-mag hydroxide-simeth 30 mL susp 45 mL, oral, Once, On Iza 01/11/24 at 1030, For 1 dose, Mix ingredients prior to administration Given 01/11/2024 12:17 PM CDT 45 mL melatonin tablet 3 mg 3 mg, oral, Daily at bedtime, First dose on 01/06/24 at 2100 Given 01/13/2024 9:12 PM CDT 3 mg Given 01/11/2024 10:21 PM CDT 3 mg Given 01/10/2024 10:07 PM CDT 3 mg morphine injection 4 mg 4 mg, intravenous, Once, On Mon01/06/24 at 0127, For 1 dose Given 01/06/2024 1:45 AM CDT 4 mg NaCl 0.9 % bolus 500 mL 500 mL, intravenous, at 250 mL/hr, Administer over 2 Hours, Once, On Iza 01/11/24 at 1930, For 1 dose New Bag 01/11/2024 7:56 PM CDT 500 mL 250 mL/hr naloxone injection 0.1 mg (NARCAN) 0.1 mg, intravenous, Every 5 min PRN, reversal, respiratory depression, For RASS Score -4 or less, respiratory rate of less than 8 breaths/min. Notify provider/service and rapid response team (if available at institution)., Starting on 01/06/24 at 0308, For 3 doses OLANZapine tablet 2.5 mg (ZyPREXA) 2.5 mg, oral, Daily at bedtime, First dose on Mon01/10/24 at 2100 Given 01/13/2024 9:12 PM CDT 2.5 mg Given 01/12/2024 9:40 PM CDT 2.5 mg Given 01/11/2024 10:21 PM CDT 2.5 mg OLANZapine tablet 2.5 mg (ZyPREXA) 2.5 mg, oral, Every 6 hours PRN, for anxiety or agitation, Starting on Mon01/10/24 at 1358 ondansetron (PF) injection 4 mg (ZOFRAN) 4 mg, intravenous, Once, On 01/06/24 at 0022, For 1 dose Given 01/06/2024 12:30 AM CDT 4 mg ondansetron (PF) injection 4 mg (ZOFRAN) 4 mg, intravenous, Once, On Mon01/10/24 at 0500, For 1 dose Given 01/10/2024 4:53 AM CDT 4 mg ondansetron (PF) injection 4 mg (ZOFRAN) 4 mg, intravenous, Every 6 hours PRN, nausea, vomiting, Starting on Mon01/10/24 at 1356 ondansetron ODT disintegrating tablet 4 mg (ZOFRAN-ODT) 4 mg, oral, Every 6 hours PRN, nausea, vomiting, Starting on 01/06/24 at 0308, When splitting ODT at bedside, handle with gloves and a pill splitter to prevent moisture contact. Given 01/09/2024 2:55 PM CDT 4 mg ondansetron ODT disintegrating tablet 4 mg (ZOFRAN-ODT) 4 mg, oral, Every 6 hours PRN, nausea, vomiting, Starting on Mon01/10/24 at 1356, When splitting ODT at bedside, handle with gloves and a pill splitter to prevent moisture contact. [id number] packet 1,000 mL (MOVIPREP) 1,000 mL, oral, Once, On Mon01/08/24 at 1045, For 1 dose, To be completed by 5 PM 01/07 Given 01/08/2024 11:22 AM CDT 1,000 mL polyethylene glycol powder packet 17 g (MIRALAX) 17 g, oral, Daily, First dose (after last modification) on Mon01/07/24 at 0900, Ordered sequence of administration: polyethylene glycol, then bisacodyl until BM achieved. Avoid mixing with starch-based thickened liquids. Given 01/14/2024 8:32 AM CDT 17 g Given 01/13/2024 8:45 AM CDT 17 g Given 01/12/2024 8:39 AM CDT 17 g potassium bicarb-citric acid disintegrating tablet 40 mEq (EFFER-K) 40 mEq, oral, Once, On Mon01/12/24 at 1045, For 1 dose, For K 3-3.4 mEq/L - give total of 40 mEq Dissolve per box worker recommendations. Do NOT chew or swallow tablet., Monitor the following for replacement: Potassium, Replace Potassium per: Standard Schedule Given 01/12/2024 12:53 PM CDT 40 mEq potassium chloride IVPB 10 mEq 10 mEq, intravenous, at 100 mL/hr, Administer over 60 Minutes, Every 1 hour, First dose on Mon01/08/24 at 1500, For 4 doses, For K 3-3.4 mEq/L - give total of 40 mEq, Monitor the following for replacement: Potassium, Replace Potassium per: Standard Schedule New Bag 01/08/2024 10:00 PM CDT 10 mEq 100 mL/hr New Bag 01/08/2024 8:31 PM CDT 10 mEq 100 mL/hr Restarted 01/08/2024 6:04 PM CDT 100 mL/hr potassium chloride IVPB 10 mEq 10 mEq, intravenous, at 100 mL/hr, Administer over 60 Minutes, Every 1 hour, First dose on Mon01/09/24 at 0700, For 4 doses, For K 3-3.4 mEq/L - give total of 40 mEq, Monitor the following for replacement: Potassium, Replace Potassium per: Standard Schedule 01/09/2024 11:06 AM CDT 10 mEq 100 mL/hr 01/09/2024 9:16 AM CDT 10 mEq 100 mL/hr 01/09/2024 9:14 AM CDT 10 mEq 100 mL/hr potassium chloride IVPB 10 mEq 10 mEq, intravenous, at 100 mL/hr, Administer over 60 Minutes, Every 1 hour, First dose on Mon01/10/24 at 0730, For 4 doses, For K 3-3.4 mEq/L - give total of 40 mEq, Monitor the following for replacement: Potassium, Replace Potassium per: Standard Schedule 01/10/2024 11:53 AM CDT 10 mEq 100 mL/hr 01/10/2024 10:32 AM CDT 10 mEq 100 mL/hr 01/10/2024 9:10 AM CDT 10 mEq 100 mL/hr potassium phosphates 30 mmol in NaCl 0.9% IVPB 30 mmol (rounded from 27.35 mmol = 0.5 mmol/kg ? 54.7 kg Dosing weight), intravenous, at 116 mL/hr, Administer over 4.4 Hours, Once, On Mon01/09/24 at 1100, For 1 dose, Peripheral Line: Administrater at 6.8 mmoL phosphate/hr, Monitor the following for replacement: Phosphorus 01/09/2024 12:34 PM CDT 30 mmol 116 mL/hr [id number] 280-160-250 mg per packet 1 packet (PHOS-NAK) 1 packet, oral, Every 4 hours while awake, First dose on Mon01/11/24 at 1000, For 2 doses, Mix each packet in 75 mL water or juice then administer ordered dose. 250 mg of phosphate is equivalent to 8 mmol of phosphate., Monitor the following for replacement: Phosphorus Given 01/11/2024 3:14 PM CDT 1 packet Given 01/11/2024 9:12 AM CDT 1 packet prochlorperazine injection 10 mg (COMPAZINE) 10 mg, intravenous, Once, On Mon01/06/24 at 0219, For 1 dose Given 01/06/2024 2:28 AM CDT 10 mg prochlorperazine injection 5 mg (COMPAZINE) 5 mg, intravenous, Every 6 hours PRN, nausea, vomiting, Starting on Mon01/06/24 at 0318 Given 01/10/2024 8:29 AM CDT 5 mg Given 01/09/2024 12:57 PM CDT 5 mg sennosides-docusate sodium 8.6-50 mg per tablet 1 tablet (SENOKOT-S) 1 tablet, oral, 2 times daily, First dose on Mon01/06/24 at 0900, Do not give if patient has diarrhea. Given 01/14/2024 8:32 AM CDT 1 tablet Given 01/13/2024 9:12 PM CDT 1 tablet Given 01/13/2024 8:45 AM CDT 1 tablet simethicone chewable tablet 80 mg (MYLICON) 80 mg, oral, 4 times daily PRN, flatulence, Starting on Mon01/09/24 at 1833 Given 01/09/2024 6:48 PM CDT 80 mg sodium chloride (PF) 0.9 % injection 1-100 mL 1-100 mL, intravenous, Once, On Mon01/06/24 at 0130, For 1 dose, Imaging Protocol Orders, Dose per Radiant Medication Guidelines Given 01/06/2024 1:30 AM CDT 50 mL sodium chloride (PF) 0.9 % injection 1-100 mL 1-100 mL, intravenous, Once, On Mon01/10/24 at 1245, For 1 dose, Imaging Protocol Orders, Dose per Radiant Medication Guidelines Given 01/10/2024 12:52 PM CDT 50 m L sodium chloride 0.9 % injection 10 mL 10 mL, intravenous, As needed, line care, Starting on Mon01/05/24 at 2259, Peripheral Intravenous Catheter and Rapid Infusion Catheter, prior to blood sampling, post blood transfusion or post blood sampling sodium chloride 0.9 % injection 3 mL 3 mL, intravenous, As needed, line care, Starting on Mon01/05/24 at 2259, Prior to and following infusion and between multiple consecutive infusions: sodium chloride 0.9 % injection sodium chloride 0.9 % injection 3 mL 3 mL, intravenous, Every 12 hours scheduled, First dose on Mon01/06/24 at 0900, Peripheral Intravenous Catheter and Rapid Infusion Catheter, when no infusion to maintain patency Given 01/14/2024 8:40 AM CDT 3 mL Given 01/13/2024 9:13 PM CDT 3 mL Given 01/13/2024 8:45 AM CDT 3 mL documented in this encounter Active and Recently Administered Medications Times are shown in CDT. Scheduled Medication Order 01/12/2024 01/13/2024 01/14/[address] tablet 81 mg 81 mg, oral, Daily, First dose (after last modification) on 01/06/24 at 1430, Swallow whole. Do NOT crush, chew, or split tablet. 0837 (Given - Provider: Valerio Rae R.N.) 0845 (Given - Provider: Valerio Rae R.N.) 0832 (Given - Provider: Teodoro Ac R.N.) atorvastatin tablet 20 mg (LIPITOR) 20 mg, oral, Daily with dinner, First dose on 01/06/24 at 1700 1704 (Given - Provider: Valerio Rae R.N.) 1744 (Given - Provider: Teodoro Ac R.N.) calcium carbonate chewable tablet 200 mg of calcium (TUMS) 200 mg of calcium, oral, Daily, First dose on 01/13/24 at 0900, Doses listed are in mg of elemental calcium. Take with food. 500 mg calcium carbonate contains 200 mg of elemental calcium. 0845 (Given - Provider: Valerio Rae R.N.) 0832 (Given - Provider: Teodoro Ac R.N.) cholecalciferol (vitamin D3) tablet 25 mcg 25 mcg, oral, Daily, First dose on 01/06/24 at 0900, cholecalciferol (vitamin D3) orderable was interchanged for cholecalciferol (vitamin D3) tablet/capsule 0837 (Given - Provider: Valerio Rae R.N.) 0845 (Given - Provider: Valerio Rae R.N.) 0832 (Given - Provider: Teodoro Ac R.N.) heparin (porcine) injection 5,000 Units 5,000 Units, subcutaneous, Every 8 hours scheduled, First dose on 01/06/24 at 0600 0635 (Not Given - Provider: Isidoro Lee R.N. - Reason: Patient/family refused)1254 (Given - Provider: Valerio Rae R.N.)2141 (Given - Provider: Brittani Madden R.N.) 0557 (Given - Provider: Brittani Madden R.N.)1745 (Given - Provider: Teodoro Ac R.N.)2111 (Given - Provider: Florence Mercado R.N.) 0601 (Given - Provider: Brittani Madden R.N.) insulin aspart U-100 injection 0-7 Units (NovoLOG FlexPen) 0-7 Units, subcutaneous, 3 times daily, First dose on Mon01/09/24 at 1200, Insulin Scale: Mild Correction Scale, 180 - 219: 2 units, 220 - 259: 3 units, 260 - 299: 4 units, 300 - 339: 5 units, 340 - 379: 6 units, 380 - 399: 7 units, Greater than 399: Call service writing Insulin orders 0838 (Not Given - Provider: Valerio Rae R.N. - Reason: Order parameters not met - Comment: [phone] (Not Given - Provider: Liss MarquezNHerbert - Reason: Order parameters not met - Comment: [phone] bg)1704 (Given - Provider: Valerio Rae R.N.) 0851 (Given - Provider: Liss MarquezNHerbert)1233 (Given - Provider: Liss MarquezNHerbert)1744 (Given - Provider: Teodoro Ac R.N.) 0833 (Given - Provider: Teodoro Ac R.N.) melatonin tablet 3 mg 3 mg, oral, Daily at bedtime, First dose on Mon01/06/24 at 2100 2153 (Not Given - Provider: Brittani Madden R.N. - Reason: Patient/family refused) 2111 (Given - Provider: Florence Mercado R.N.) OLANZapine tablet 2.5 mg (ZyPREXA) 2.5 mg, oral, Daily at bedtime, First dose on Mon01/10/24 at 2100 2140 (Given - Provider: Brittani Madden R.N.) 2111 (Given - Provider: Florence Mercado R.N.) polyethylene glycol powder packet 17 g (MIRALAX) 17 g, oral, Daily, First dose (after last modification) on Mon01/07/24 at 0900, Ordered sequence of administration: polyethylene glycol, then bisacodyl until BM achieved. Avoid mixing with starch-based thickened liquids. 0839 (Given - Provider: Valerio Rae R.N.) 0845 (Given - Provider: Valerio Rae R.N.) 0832 (Given - Provider: Teodoro Ac R.N.) potassium bicarb-citric acid disintegrating tablet 40 mEq (EFFER-K) (COMPLETED)(Linked Group 1) 40 mEq, oral, Once, On Mon01/12/24 at 1045, For 1 dose, For K 3-3.4 mEq/L - give total of 40 mEq Dissolve per box worker recommendations. Do NOT chew or swallow tablet., Monitor the following for replacement: Potassium, Replace Potassium per: Standard Schedule 1253 (Given - Provider: Valerio Rae R.N.) sennosides-docusate sodium 8.6-50 mg per tablet 1 tablet (SENOKOT-S) 1 tablet, oral, 2 times daily, First dose on 01/06/24 at 0900, Do not give if patient has diarrhea. 0837 (Given - Provider: Valerio Rae R.N.)2152 (Not Given - Provider: Brittani Madden R.N. - Reason: Patient/family refused) 0845 (Given - Provider: Valerio Rae R.N.)2111 (Given - Provider: Florence Mercado R.N.) 0832 (Given - Provider: Teodoro Ac R.N.) sodium chloride 0.9 % injection 3 mL 3 mL, intravenous, Every 12 hours scheduled, First dose on 01/06/24 at 0900, Peripheral Intravenous Catheter and Rapid Infusion Catheter, when no infusion to maintain patency 0848 (Given - Provider: Valerio Rae R.N.)2152 (Given - Provider: Brittani Madden R.N.) 0845 (Given - Provider: Valerio Rae R.N.)0139 (Given - Provider: Florence Mercado R.N.) 0815 (Given - Provider: Teodoro Ac R.N.) PRN Medication Order 01/12/2024 01/13/2024 01/14/2024 acetaminophen tablet 650 mg (TYLENOL) 650 mg, oral, Every 6 hours PRN, mild pain or score 1-3 of 10, Starting on Iza 01/11/24 at 0330 0837 (Given - Provider: Valerio Rae R.N.) yiucohuhxtuly-ortbqehuwh-ljd amine in Lipoderm 2%-5%-5% cream 1 g 1 g, topical, 3 times daily PRN, For pain, Starting on 01/07/24 at 1301 HYDROmorphone tablet 2 mg (DILAUDID) 2 mg, oral, Every 4 hours PRN, moderate pain or score 4-6 of 10, severe pain or score 7-10 of 10, Starting on 01/06/24 at 0308 0557 (Given - Provider: Brittani Madden R.N.) lidocaine 5 % 1 patch (LIDODERM) 1 patch, transdermal, Administer over 12 Hours, Daily PRN, for pain, Starting on 01/07/24 at 1300, Remove after 12 hours. naloxone injection 0.1 mg (NARCAN) 0.1 mg, intravenous, Every 5 min PRN, reversal, respiratory depression, For RASS Score -4 or less, respiratory rate of less than 8 breaths/min. Notify provider/service and rapid response team (if available at institution)., Starting on 01/06/24 at 0308, For 3 doses OLANZapine tablet 2.5 mg (ZyPREXA) 2.5 mg, oral, Every 6 hours PRN, for anxiety or agitation, Starting on 01/10/24 at 1358 ondansetron (PF) injection 4 mg (ZOFRAN)(Linked Group 2) 4 mg, intravenous, Every 6 hours PRN, nausea, vomiting, Starting on Mon01/10/24 at 1356 ondansetron ODT disintegrating tablet 4 mg (ZOFRAN-ODT)(Linked Group 2) 4 mg, oral, Every 6 hours PRN, nausea, vomiting, Starting on Mon01/10/24 at 1356, When splitting ODT at bedside, handle with gloves and a pill splitter to prevent moisture contact. simethicone chewable tablet 80 mg (MYLICON) 80 mg, oral, 4 times daily PRN, flatulence, Starting on Mon01/09/24 at 1833 sodium chloride 0.9 % injection 10 mL 10 mL, intravenous, As needed, line care, Starting on Mon01/05/24 at 2259, Peripheral Intravenous Catheter and Rapid Infusion Catheter, prior to blood sampling, post blood transfusion or post blood sampling sodium chloride 0.9 % injection 3 mL 3 mL, intravenous, As needed, line care, Starting on Mon01/05/24 at 2259, Prior to and following infusion and between multiple consecutive infusions: sodium chloride 0.9 % injection Linked Groups Order Group 1: potassium bicarb-citric acid disintegrating tablet 40 mEq (EFFER-K) (COMPLETED)Jump to med 40 mEq, oral, Once, On Mon01/12/24 at 1045, For 1 dose, For K 3-3.4 mEq/L - give total of 40 mEq Dissolve per box worker recommendations. Do NOT chew or swallow tablet., Monitor the following for replacement: Potassium, Replace Potassium per: Standard Schedule Or potassium bicarb-citric acid disintegrating tablet 40 mEq (EFFER-K) (COMPLETED) 40 mEq, gastric tube, Once, On Mon01/12/24 at 1045, For 1 dose, For K 3-3.4 mEq/L - give total of 40 mEq Give via gastric tube if available and patient unable to tolerate oral Dissolve per box worker recommendations. Do NOT chew or swallow tablet., Monitor the following for replacement: Potassium, Replace Potassium per: Standard Schedule Or potassium bicarb-citric acid disintegrating tablet 40 mEq (EFFER-K) (COMPLETED) 40 mEq, small bowel tube, Once, On Mon01/12/24 at 1045, For 1 dose, For K 3-3.4 mEq/L - give total of 40 mEq Give via small bowel tube if available and patient unable to tolerate oral Dissolve per box worker recommendations. Do NOT chew or swallow tablet., Monitor the following for replacement: Potassium, Replace Potassium per: Standard Schedule Group 2: ondansetron ODT disintegrating tablet 4 mg (ZOFRAN-ODT)Jump to med 4 mg, oral, Every 6 hours PRN, nausea, vomiting, Starting on Mon01/10/24 at 1356, When splitting ODT at bedside, handle with gloves and a pill splitter to prevent moisture contact. Or ondansetron (PF) injection 4 mg (ZOFRAN)Jump to med 4 mg, intravenous, Every 6 hours PRN, nausea, vomiting, Starting on Mon01/10/24 at 1356 documented in this encounter Care Teams Financial Risk Manager Relationship Specialty Start Date End Date Elsewhere, Pcp PCP - General Internal Medicine 01/05/24 documented as of this encounter
--- OUTSIDE RECORDS SUMMARY | 2024-01-20 12:39 | XMS_ITS | Encounter Summary ---
Author Organization [facility] Address [address] [place] [address] Care Team Providers Care Dope Maintenance Worker Name Role Phone Elsewhere, Pcp Primary Care Provider Unavailabl e Reason for Visit * Reason Onset Date Comments Nurse Assessment 12/22/2023 New patient / Tia Farrell Encounter Details Date Type Department Care Team (Latest Contact Info) Description 12/22/2023 Clinical Communication Department of Ophthalmology in [place], [place] [address] [place] [phone] Mauri Farrell M.D. [address] [place] [phone] Nurse Assessment (New patient / Dr. Farrell) Social History Tobacco Use Types Packs/Day Years Used Date Smoking Tobacco: Never Smokeless Tobacco: Never Alcohol Use Standard Drinks/Week Comments No 0 (1 standard drink = 0.6 oz pur e alcohol) [facility] Utilities Answer Date Recorded In the past 12 months has [facility] [employer], gas, oil, or water [employer] threatened to shut off services in your [...] your living situation today? I have a [facility] place to live 12/13/2023 Sex and Gender Information Value Date Recorded Sex Assigned at Female 11/29/2023 7:47 PM CDT Gender Identity Female 11/29/2023 7:47 PM CDT Sexual Orientation Straight 11/29/2023 7: 47 PM CDT documented as of this encounter Plan of Treatment Upcoming Encounters Date Type Department Care Team (Latest Contact Info) Description 02/19/2024 9:30 AM CDT Comprehensive Visit Department of Ophthalmology in [address] [phone] Alan Araujo Jr., M.D. [address] [phone] Discharge Disposition: Home or Self Care documented as of this encounter Visit Diagnoses Not on filedocumented in this encounter Care Teams Dope Maintenance Worker Relationship Specialty Start Date End Date Elsewhere, Pcp PCP - General Internal Medicine 01/05/24 documented as of this encounter
--- OUTSIDE RECORDS SUMMARY | 2024-01-20 12:39 | XMS_ITS | Encounter Summary ---
Author Organization [facility] Address [address] [place] [phone] Care Team Providers Care Coke Production Heater Name Role Phone Elsewhere, Pcp Primary Care Provider Unavailabl e Reason for Visit * Reason Onset Date Comments Hospice Referral Communication 01/12/2024 Encounter Details Date Type Department Care Team (Latest Contact Info) Description 01/12/2024 Clinical Communication [facility] in [facility] [place] [address] [place] [phone] Marilyn Funes R.N. [address] [place] [phone] Hospice Referral Communication Social History Tobacco Use Types Packs/Day Years Used Date Smoking Tobacco: Never Smokeless Tobacco: Never Alcohol Use Standard Drinks/Week Comments No 0 (1 standard drink = 0.6 oz pur e alcohol) [facility] Utilities Answer Date Recorded In the past 12 months has [facility] [employer], gas, oil, or water [employer] threatened to shut off services in your [...] today? I have a [facility] place to live 01/06/2024 Sex and Gender Information Value Date Recorded Sex Assigned at Female 11/29/2023 7:47 PM CDT Gender Identity Female 11/29/2023 7:47 PM CDT Sexual Orientation Straight 11/29/2023 7: 47 PM CDT documented as of this encounter Miscellaneous Notes * Telephone Encounter - Rolando Camp M.D. - 01/12/2024 5:09 PM CDT Rolando Camp M.D. reviewed the patient's medical record and determined the patient meets [facility] guidelines for hospice admission with: Primary Diagnosis Mass Pancreas The Medications List and Hospice coverage status was reviewed: Covered Drugs sennosides-docusate sodium 8.6-50 mg per tablet 1 tablet (SENOKOT-S) HYDROmorphone tablet 2 mg (DILAUDID) polyethylene glycol powder packet 17 g (MIRALAX) lidocaine 5 % 1 patch (LIDODERM) dnktifybphedq-lqkhnbivbi-jcxnzogb in Lipoderm 2%-5%-5% cream 1 g ondansetron ODT disintegrating tablet 4 mg (ZOFRAN-ODT) OLANZapine tablet 2.5 mg (ZyPREXA) OLANZapine tablet 2.5 mg (ZyPREXA) acetaminophen tablet 650 mg (TYLENOL) Not Covered Drugs atorvastatin tablet 20 mg (LIPITOR) - Reason: Not related to terminal diagnosis or prognosis cholecalciferol (vitamin D3) tablet 25 mcg - Reason: Not related to terminal diagnosis or prognosis melatonin tablet 3 mg - Reason: Not related to terminal diagnosis or prognosis aspirin DR tablet 81 mg - Reason: Not related to terminal diagnosis or prognosis insulin aspart U-100 injection 0-7 Units (NovoLOG FlexPen) - Reason: Not related to terminal diagnosis or prognosis simethicone chewable tablet 80 mg (MYLICON) - Reason: Not related to terminal diagnosis or prognosis Coverage Not Set Drugs sodium chloride 0.9 % injection 3 mL sodium chloride 0.9 % injection 10 mL sodium chloride 0.9 % injection 3 mL heparin (porcine) injection 5,000 Units naloxone injection 0.1 mg (NARCAN) ondansetron (PF) injection 4 mg (ZOFRAN) * Telephone Encounter - Marilyn Funes RRafal - 01/12/2024 4:14 PM CDT Charla Graham is a 83 y.o. female who is referred to [facility] by palliative care teamfor admission. Please review for admission, Diagnosis list, and Hospice Covered Medications. Review of patient problem list identified the following diagnosis at this time: Primary Diagnosis Mass Pancreas Related Diagnoses Stricture Biliary (HCC) Cholangitis Acute (HCC) Facial Weakness From Stroke Cerebrovascular Accident Infarction Cerebral (HCC) Pancreatitis Post Endoscopic Retrograde Cholangiopancreatography (HCC) Delirium Stroke (HCC) Unrelated Diagnoses Diabetes Mellitus Type 2 Without Complication (HCC) - Reason: Not related to hospice diagnosis or prognosis at this time as it is a chronic, stable disease and has no likely effect on length of life. Patient may continue to take medications related tothis diagnosis and bill regular insurance. Hyperlipidemia Mixed - Reason: Not related to hospice diagnosis or prognosis at this time as it is a chronic, stable disease and has no likely effect on length of life. Patient may continue to take medications related tothis diagnosis and bill regular insurance. [facility] LCD ASSESSMENTS Palliative Performance Scale (PPSv2): 50% LCD Part 1 Local Coverage Determination (LCD): Hospice - Determining Terminal Status ([id number]) Part I. Decline in clinical status guidelines: progression of disease as documented by worsening clinical status, symptoms, signs and laboratory results Progressive inanition as documented by: weight loss of at least 10% body weight in the prior six months, not due to reversible causes Signs: pleural/pericardial effusion, weakness B-F: decline in KPS or PPS due to progression of disease, history of visits related to the hospice primary diagnosis prior to election of hospice, progression to dependence on assistance with additional activities of daily living LCD PARTS 2 & 3 Part II Non-Disease Specific Baseline Guidelines A. Physiological impairment of functional status as demonstrated by: impaired performance status with a PPS score less than 70% B. Dependence on assistance for two or more activities of daily living (ADLs): ambulation, bathing,dressing, physical transfer C. Comorbidities: Diabetes mellitus, Neoplasia Part III. Disease Specific Guidelines: Cancer Nursing Narrative: Change in Functional Status (with trend): Patient has had ongoing weakness and fatigue. She remains able to ambulate with walker and assist of 1. She has noted ongoing decline in her functional status and is requiring additional support with ADLs. Nutritional Status (with trend): Limited weights on file but [facility] note 11/2023 noted a 20 lb weight loss over the past 3 months. She has been consuming 0-50% of meals during her hospitalization. Cognitive Status (with trend): Patient is oriented and making her own medical decisions. She has been more fatigued and is spending increasing time asleep. 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 She underwent ERCP with stenting and had post procedural pancreatitis. Patient was seen by oncology who feel mass is consistent with malignancy. 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 They were able to discuss ongoing management and goals of care were discussed. She has opted to transition to comfort focused plan of care and wishes for hospice support upon hospital dismissal. documented in this encounter Plan of Treatment Upcoming Encounters Date Type Department Care Team (Latest Contact Info) Description 02/19/2024 9:30 AM CDT Comprehensive Visit Department of Ophthalmology in [address] [phone] Alan Araujo Jr., M.D. [address] [phone] Discharge Disposition: Home or Self Care documented as of this encounter Visit Diagnoses Not on filedocumented in this encounter Care Teams Coke Production Heater Relationship Specialty Start Date End Date Elsewhere, Pcp PCP - General Internal Medicine 01/05/24 documented as of this encounter
--- OUTSIDE RECORDS SUMMARY | 2024-01-20 12:39 | XMS_ITS | Encounter Summary ---
Author Organization [facility] Address [address] [place] [address] Care Team Providers Care Perpetual Inventory Clerk Name Role Phone Elsewhere, Pcp Primary Care Provider Unavailabl e Reason for Referral * Outpatient (Routine) - Closed Specialty Diagnoses / Procedures Referred By Contac t Referred To Contact Diagnoses Mass Pancreas Procedures FL Fluoro Less Than 1 Hour Calvin Bailey M.D. [address] [place] [phone] [facility] Referral ID Status Reason Start Date Expiration Date Visits Re quested Visits Authorized [id number] Closed 01/05/2024 01/04/2025 1 1 Reason for Visit * Outpatient (Routine) - Closed Specialty Diagnoses / Procedures Referred By Contac t Referred To Contact Diagnoses Mass Pancreas Procedures FL Fluoro Less Than 1 Hour Calvin Bailey M.D. [address] [place] [phone] [facility] Referral ID Status Reason Start Date Expiration Date Visits Re quested Visits Authorized [id number] Closed 01/05/2024 01/04/2025 1 1 Encounter Details Date Type Department Care Team (Latest Contact Info) Description 01/05/2024 8:42 AM CDT - 01/05/2024 11:46 PM CDT Hospital Encounter Department of Radiology, [facility], in [place], [place] [address] [place] [phone] [place] [phone] Mass Pancreas Discharge Disposition: Home or Self Care Social History Tobacco Use Types Packs/Day Years Used Date Smoking Tobacco: Never Smokeless Tobacco: Never Alcohol Use Standard Drinks/Week Comments No 0 (1 standard drink = 0.6 oz pur e alcohol) [facility] Utilities Answer Date Recorded In the past 12 months has [employer], [employer], oil, or water [employer] threatened to shut off services in your [...] your living situation today? I have a [facility] place to live 01/06/2024 Sex and Gender Information Value Date Recorded Sex Assigned at Female 11/29/2023 7:47 PM CDT Gender Identity Female 11/29/2023 7:47 PM CDT Sexual Orientation Straight 11/29/2023 7: 47 PM CDT documented as of this encounter Medications at Time of Discharge Medication Sig Dispensed Refills Start Date End Date A LIPOIC [id number] ORAL Take 1 capsule by mouth daily. [...] mouth daily. flash glucose scanning reader ([employer] Barbie 14 Day [place]) by other route. 08/25/2022 flash glucose scanning [...] CDT Comprehensive Visit Department of Ophthalmology in [place], [place] [address] [place] [phone] Alan Araujo Jr., M.D. [address] [phone] Discharge Disposition: Home or Self Care documented as of this encounter Procedures Procedure Name Priority Date/Time Associated Diagnosis Comments FL FLUORO LESS THAN 1 HOUR RAD - Routine (most inpatients and all outpatients) 01/05/2024 10:19 AM CDT Mass Pancreas documented in this encounter Results * FL Fluoro Less Than 1 Hour (01/05/2024 10:19 AM CDT) Narrative ERCP LOS RST - 01/05/2024 10:21 AM CDT This exam does not require a radiologist review or interpretation. Please refer to the patient's medical record on this date for clinical details. Calvin SOSAG FLUOROSCOPY P ROCEDURES ERCP LOS RST documented in this encounter Visit Diagnoses Diagnosis Mass Pancreas documented in this encounter Care Teams Perpetual Inventory Clerk Relationship Specialty Start Date End Date Elsewhere, Pcp PCP - General Internal Medicine 01/05/24 documented as of this encounter
--- OUTSIDE RECORDS SUMMARY | 2024-01-20 12:40 | XMS_ITS | Encounter Summary ---
Author Organization [facility] Address [address] [place] [address] Care Team Providers Care Graining Press Operator Name Role Phone Unavailable Primary Care Provider Unavailabl e Encounter Details Date Type Department Care Team (Latest Contact Info) Description 12/13/2023 12:41 PM CDT - 12/13/2023 11:59 PM CDT Hospital Encounter Department of Radiology, [place], [place] [address] [place] [phone] Malka Montero M.D., M.H.S. [address] [place] [phone] Discharge Disposition: Home or Self Care Social History Tobacco Use Types Packs/Day Years Used Date Smoking Tobacco: Never Smokeless Tobacco: Never Alcohol Use Standard Drinks/Week Comments No 0 (1 standard drink = 0.6 oz pur e alcohol) [facility] Utilities Answer Date Recorded In the past 12 months has e [employer], gas, oil, or water [employer] threatened to shut off services in your [...] a [facility] to live 12/13/2023 Sex and Gender Information Value Date Recorded Sex Assigned at Female 11/29/2023 7:47 PM CDT Gender Identity Female 11/29/2023 7:47 PM CDT Sexual Orientation Straight 11/29/2023 7: 47 PM CDT documented as of this encounter Medications at Time of Discharge Medication Sig Dispensed Refills Start Date End Date A LIPOIC WWYO-OBZIDN-UYVKYDDYN ORAL Take 1 capsule by mouth daily. [...] by mouth daily. flash glucose scanning reader ([employer] Barbie 14 Day [place]) by other route. 08/25/2022 flash glucose scanning reader (Re[employer]YLE BARBIE) by other route. 08/25/2022 flash glucose sensor ([employer] BARBIE) kit by other route. 04/25/2023 glipiZIDE (GLUCOTROL) 5 mg tablet Take 5 mg by mouth 2 (two) times a day before breakfast and dinner. 10/08/2021 sennosides-docusate sodium (SENOKOT-S) 8.6-50 mg per tablet Take 1 tablet by mouth 2 (two) times a day. 30 tablet 1 12/15/2023 ciprofloxacin (CIPRO) 500 mg tabletIndications:Intr a-abdominal infection, community acquired Take 1 tablet (500 mg total) by mouth 2 (two) times a day before breakfast and dinner for 9 doses Indications: Intra-abdominal infection, community acquired. 9 tablet 12/15/2023 12/20/2023 metroNIDAZOLE (FLAGYL) 500 mg tabletIndications:Intr a-abdominal infection, community acquired Take 1 tablet (500 mg total) by mouth 3 (three) times a day for 4 days Indications: Intra-abdominal infection, community acquired. 12 tablet 12/15/2023 12/19/2023 clopidogreL (PLAVIX) 75 mg tablet Take 1 tablet by mouth daily. 01/05/2023 12/15/2023 clopidogreL (Plavix) 75 mg tablet Take 1 tablet (75 mg total) by mouth daily for 23 days. 23 tablet 12/15/2023 01/14/2024 d-mannose 500 mg capsule Take by mouth. 11/02/2023 12/14/2023 nitrofurantoin (MACRODANTIN) 50 mg capsule Take 50 mg by mouth daily. UTI prevention 01/06/2024 OMEGA-3 FATTY ACIDS-EPA ORAL Take 1 capsule by mouth. 06/06/2012 12/14/2023 ubiquinone (COENZYME Q10) 100 mg tablet Take by mouth. 07/02/2013 024 documented as of this encounter Plan of Treatment Upcoming Encounters Date Type Department Care Team (Latest Contact Info) Description 02/19/2024 9:30 AM CDT Comprehensive Visit Department of Ophthalmology in [place], [place] [address] [place] [phone] Alan Araujo Jr., M.D. [address], [place] [phone] Discharge Disposition: Home or Self Care documented [...] this date for clinical details. Malka Montero M.D., M.H.S. IMG FLUOROSC OPY PROCEDURES ERCP LOS RST documented in this encounter Visit Diagnoses Not on filedocumented in this encounter
--- OUTSIDE RECORDS SUMMARY | 2024-01-20 12:40 | XMS_ITS | Encounter Summary ---
Author Organization [facility] Address [address] [place] [address] Care Team Providers Care Sheet Folder Name Role Phone Unavailable Primary Care Provider Unavailabl e Encounter Details Date Type Department Care Team (Latest Contact Info) Description 12/13/2023 4:12 AM CDT - 12/15/2023 1:09 PM CDT Hospital Encounter [facility], Fourth Floor [address] [place] [address] Naun Moore M.B., Ch.B. [address] [place] [phone] Vipul Caraballo M.D. [address] [place] [phone] Discharge Disposition: Home or Self Care Social History Tobacco Use Types Packs/Day Years Used Date Smoking Tobacco: Never Smokeless Tobacco: Never Alcohol Use Standard Drinks/Week Comments No 0 (1 standard drink = 0.6 oz pur e alcohol) [facility] Utilities Answer Date Recorded In the past 12 months has e [employer], gas, oil, or water company threatened to [...] your living situation today? [facility] 12/13/2023 Sex and [...] PM CDT DISCHARGE SUMMARY BRIEF OVERVIEW Hospital: [facility] Discharge Provider: Vipul Caraballo M.D. Primary Team: [facility] Medicine 1 ([facility]) No primary care provider on file. Primary [...] Appointments 12/20/2023 8:00 AM Sam Lee M.D.; [facility] 01 [place] Gastroenterology and Hepatology 12/29/2023 9:00 AM Maricruz Ryan M.S., MARY, LD Nutrition 01/15/2024 8:00 AM Alejandra Souza P.A.-C.; [facility] 01 U[place] Urology 01/15/2024 11:45 AM [...] and confusion for which she presented to [place] ED where her workup was suggestive of ascending cholangitis for which she was started on ceftriaxone and metronidazole and transferred to [facility]. On arrival she did not have any [...] primary care provider. Thank you for choosing [facility] for your medical care. It was our pleasure to take care of you! Best regards, Surinder Conroy M.D. * Discharge Instr - Diet* Suzi Queen M.S., RDN, LD - 12/14/2023 3:31 PM CDT NUTRITION Date Completed: 12/14/2023 Phone contact: Height: 152.4 cm Weight: 55.6 kg Admission Weight: 55.6 kg BMI (Calculated): 23.9 kg/m?? Diet Order: General Estimated Needs: Total Calorie Needs: 6074-2361 calories/day Method to Estimate Energy Needs: kcal/kg [...] through Care Everywhere. * Ciprofloxacin (By mouth) (Ukrainian) * Metronidazole (By mouth) (Ukrainian) documented in this encounter Medications at Time of Discharge Medication Sig Dispensed Refills Start Date End Date A LIPOIC FBTH-MRCVUD-DYZZJZHOT ORAL Take 1 capsule by mouth daily. [...] by mouth daily. flash glucose scanning reader ([employer] Barbie 14 Day [place]) by other route. 08/25/2022 flash glucose scanning [...] community acquired. 12 tablet 12/15/2023 12/19/2023 clopidogreL (Plavix) 75 mg tablet Take 1 tablet (75 mg total) by mouth daily for 23 days. 23 tablet 12/15/2023 01/14/2024 nitrofurantoin (MACRODANTIN) 50 mg capsule Take 50 mg by mouth daily. UTI prevention 01/06/2024 documented as of this encounter Progress Notes * Vipul Caraballo M.D. - 12/15/2023 11:38 AM CDT T Medicine 1 ([facility]) Supervisory Note I saw and evaluated Ms. [...] page the GI Hepatobiliary consult pager at [phone] with any questions or concerns. Dr. Tere Edmondson Gastroenterology & Hepatology Fellow PGY-6 * O Warren Castro, Todd., R.Ph. - 12/14/2023 10:13 AM CDT Pharmacist [...] glipizide, goal bg range 140-180. Warren Castro PharmHerbertD., R.Ph. * Albino Colunga - 12/14/2023 7:46 AM CDT RST Medicine 1 ([facility]) PROGRESS NOTE SUBJECTIVE Ms. Graham is day [...] No evidence of disorganized thinking. 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 DIAGNOSTICS LFTs show T bili down from [...] / PLAN Ms. Graham is hospitalized on [place] [id number] ([facility]) for evaluation and management of Acute cholangitisin [...] Decision Maker: Maia Grajeda Plan discussed with [facility] Medicine 1 ([facility]) Dwarf Tree Grower, Vipul Pittman M.D., who was present during kirk portions of the evaluation today. Please page the [facility] Medicine 1 ([facility]) service pager at [phone] with any questions. Associated attestation - Vipul Caraballo M.D. - 12/14/2023 4:29 PM CDT [facility] Medicine 1 ([facility]) Supervisory Note I saw and evaluated Ms. [...] Mass: Moderate Loss Fluid Accumulation: Absent Reduced Skip Miner Strength: Not applicable This is in the context of Acute Illness or Injury. Agree with Registered Dietitian's assessment and treatment plan: Interventions: Increase nutrient intake with small, frequent meals and/or snacks, Medical food supplement, Vitamin and mineral supplements, Provide counseling strategies to apply nutrition knowledge * Surinder Conroy M.D. - 12/14/2023 7:00 AM CDT RST Medicine 1 ([facility]) Progress Note SUBJECTIVE INTERVAL EVENTS No acute [...] No evidence of disorganized thinking. 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 DIAGNOSTICS (diagnostics reviewed) ASSESSMENT / PLAN Ms. [...] Activity Orders (From admission, onward) Start 12/13/23 6216 Activity/Position: Up Ad Jennifer, Up to Chair; [...] Mass: Moderate Loss Fluid Accumulation: Absent Reduced Skip Miner Strength: Not applicable This is in the context of Acute Illness or Injury. Agree with Registered Dietitian's assessment and treatment plan: Interventions: Increase nutrient intake with small, frequent meals and/or snacks, Medical food supplement, Vitamin and mineral supplements, Provide counseling strategies to apply nutrition knowledgePlan discussed with [facility] Medicine 1 ([facility]) Dwarf Tree Grower, Vipul Pittman M.D., who was present dur ing kirk portions of the evaluation today. Please page the Med 1 service pager at [phone] with anyquestions. documented in this encounter H&P Notes * Vahid Kaplan M.D. - 12/13/2023 4:46 AM CDT T Medicine 1 ([facility]) Supervisory Admission Note SUBJECTIVE CHIEF COMPLAINT Possible [...] she underwent labs and CT pancreas at [place] on 12/11 in anticipation for OP establishmentof [...] slurred speech for which she wasbrought to [place] ED for assessment. Repeat laboratory assesment was notable for increase of leukocytosis to 24K and bilirubin of 4.5. CT imaging noted diffuse mural enhancement of CBD consistent with acute cholangitis and she was initiated on CTX + metronidazole prior to direct admission to [facility] ED for further management. Upon arrivalpatient was [...] biliary duct dilation when compared to later k[place] CT performed on the same day. 2. [...] course. Briefly, Ms. Graham is hospitalized on RST Medicine 1 ([facility]) for evaluation and management of acute cholangitis in s/o subacute/chronic biliary tract obstruction. At this point, her course is certainly concerning for acute cholangitis; however, we have limited availability of outside evaluation at time of patient arrival for personal review. Additionally, patient presents at her baseline health upon arrival to [place], which could likely be consistent with rapid [...] at OSH by time of arrival at [place] are supportiveof appropriate antimicrobial coverage Continue CTX [...] Montero M.D. - 12/13/2023 4:15 AM CDT RST Medicine 1 ([facility]) Admission Note SUBJECTIVE CHIEF COMPLAINT Abnormal LFTs HISTORY OF PRESENT ILLNESS Ms. Charla Graham is a 83 y.o. female who presents with elevated LFTs and bilirubin. PMH is significant for diabetes, HLD HTN, left ICA stroke in 12/2022 (s/p thrombolysis and endovascular management), recurrent UTIs with recent antimicrobials, and hearing loss. On 12/11 she underwent labs and CT pancreas at [facility]. These tests were in anticipation of GI [...] was called and she was brought to [facility] ED. In the [place] ED, labs were notable for WBC 23.98, bilirubin 4.5, AST 274, ALT 187, and alk phos 151. CT abdomen/pelvis showed: Mild intrahepatic biliary ductal dilation and dilation of the common bile duct up to 12 mm with diffuse mural enhancement. The gallbladder is clearly visualized, possibly contracted. Findings concerning for ascending cholangitis. No obstructing lesion visualized. She was given ceftriaxone/metronidazole and transferred to [place] for concern for cholangitis. On admission to [place], she was fully alert and oriented and [...] Home Medications Medication Sig Taking A LIPOIC ZODF-TLWRBC-SQTYEXAPD ORAL Take by mouth daily. acetaminophen (TYLENOL) [...] glucose scanning reader ([employer] 14 Day [place]) by other route. flash glucose scanning reader [...] No evidence of disorganized thinking. 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 DIAGNOSTICS I have reviewed the diagnostics from [...] Code status: Prior Surrogate Decision Maker: Child, Maiadavon Connell or Hazel Graham Disposition: Home Lines, Drains, and Wounds Peripheral IV Duration Peripheral IV 20 G Left;Lower;Posterior Forearm -- Peripheral IV 20 G Right Wrist -- Associated attestation - Vipul Caraballo M.D. - 12/13/2023 11:55 AM CDT RST Medicine 1 ([facility]) Supervisory Note I saw and evaluated Ms. [...] upcoming appointments with outpatient GI here at [place]. She underwent abdominal imaging yesterday but then later on developed abdominal pain as well as nausea and chills. There was also concern for confusion and change in speech. She underwent local evaluation and ED or there was a rise in her white blood cell count to 24. Liver enzymes are also elevated. Due to concern for cholangitisshe was transferred to [facility]. For today, we will have her go [...] of breakfast this morning which consisted of latvian toast and eggs. She had some nausea [...] 55.6 kg (12/13/2023) Current Weight: 55.6 kg [place] Body Weight (Calculated) : 45.5 kg BMI [...] 3 months. Estimated Needs: Total Calorie Needs: 4137-9600 calories/day Method to Estimate Energy Needs: kcal/kg [...] Mass: Moderate Loss Fluid Accumulation: Absent Reduced Skip Miner Strength: Not applicable This is in the [...] about patient's nutritional care please contact pager [phone] on weekdays 07:30-16:00 or [phone] on weekends/holidays. * Annalisa Mcnamara RHerbertN. - 12/14/2023 9:18 AM CDTAssociated Order(s): IP CONSULT TO CARE MANAGEMENT; IP CONSULT TO CARE MANAGEMENT Discharge Planning Assessment SUBJECTIVE Assessment Information Referral Source: Early Screen for Discharge Planning Referral Reason: Discharge Planning Primary Language: Ukrainian Dosier Operator Services Used: No Person(s) present during interview: [...] Self Care ASSESSMENT / PLAN Assessment: The wastewater process engineer met with Charla Graham to discuss her current hospitalization and home goingneeds. The patient was unaccompanied. The patient was a reliable historian. The role of wastewater process engineer was reviewed. The patient reviewed her prior level of care and support system. The patient receives support from her children and extended family. The patient described her living environment as a multiple level home with stairs to enter with rails. Housekeeping, grocery shopping, meal prep, and other household responsibilities have previously been completed by patient. wastewater process engineer discussed the patient's potential needs at dismissal [...] chart and meeting with the patient, the wastewater process engineer deemed the LACE+/readmission questions were not necessary. The patient reports understanding that she will dismiss from the hospital when medically stable. Pending hospital course and medical readiness, no barriers to dismissal have been identified at this time. Plan: The patient agrees with the following plan. Patient's anticipated discharge disposition is: Home to Self Care Transportation upon dismissal will be provided by family--daughters . wastewater process engineer recommended nothing at this time. wastewater process engineer provided information regarding the dismissal process. wastewater process engineer placed or requested the following hospital-based consult orders and/or referrals: None. wastewater process engineer will continue to assess for homegoing needs with the interdisciplinary team. wastewater process engineer encouraged the patient to reach out with [...] in the process of establishing care at [facility] Pancreas clinic. She underwent Telemedicine pre-visit [...] rule out malignancy. She was referred to [facility] for further evaluation. Yesterday she underwent outpatient [...] page the GI Hepatobiliary consult pager at [phone] with any questions or concerns. GUSTABO [facility] CHANI Fellow, Gastroenterology and Hepatology (PGY-6) documented in this encounter Nursing Notes * Sandra Rizvi R.N. - 12/15/2023 12:51 PM CDT Shift Goals: Clinical Goals for the Shift: pt will sleep through the night Identify possible barriers to meeting goals/advancing plan of care: None End of Shift Summary: Pt discharged to [facility] with family at 1300 this shift. Vital [...] and confusion for which she presented to [place] ED where her workup was suggestive of ascending cholangitis for which she was started on ceftriaxone and metronidazole and transferred to [facility]. On arrival she did not have any [...] CDT Comprehensive Visit Department of Ophthalmology in [address] [phone] Alan Araujo Jr., M.D. [address] [phone] Discharge Disposition: Home or Self [...] and all outpatients) 12/13/2023 2:[address] MORPH INSITU MAN EA MULTIPLEX A1 Routine 12/13/2023 1:40 PM CDT BILIARY TRACT MALIGNANCY-CYTOLOGY, FISH Routine 12/13/2023 1:40 PM CDT ERCP Routine 12/13/2023 1:09 PM [...] LAB POCT ORDERABLES- MANUAL Performing Organization Address City/[facility] Co de Phone Number [facility] [address] [place] [address], [facility] [address] [place] [address] * (ABNORMAL) Glucose, POCT (12/15/2023 7:38 AM CDT) Glucose, POCT, B 191(H) 70 - 140 mg/dL 12/15/2023 7:39 AM CDT PCLX Site Capillary 12/15/2023 7:39 AM CDT PCLX Last Intake > 4 hours 12/15/2023 7:39 AM CDT PCLX Blood 12/15/2023 7:38 AM CDT 12/15/2023 7:40 AM CDT Unknown Provider LAB POCT ORDERABLES- MANUAL Performing Organization Address City/[facility]/ZIP Co de Phone Number [facility] [address] [place] [address], [facility] [address] [place] [address] * (ABNORMAL) Glucose, POCT (12/14/2023 8:35 PM CDT) Glucose, POCT, B 178(H) 70 - 140 mg/dL 12/14/2023 8:37 PM CDT PCLX Site Capillary 12/14/2023 8:37 PM CDT PCLX Last Intake 2-3 hours 12/14/2023 8:37 PM CDT PCLX Blood 12/14/2023 8:35 PM CDT 12/14/2023 8:37 PM CDT Unknown Provider LAB POCT ORDERABLES- MANUAL Performing Organization Address City/[facility] Co de Phone Number POC [facility] [address] [place] [address], [facility] [address] [place] [address] * (ABNORMAL) Glucose, POCT (12/14/2023 6:05 PM CDT) Glucose, POCT, B 175(H) 70 - 140 mg/dL 12/14/2023 6:06 PM CDT PCLX Site Capillary 12/14/2023 6:06 PM CDT PCLX Last Intake 3-4 hours 12/14/2023 6:06 PM CDT PCLX Blood 12/14/2023 6:05 PM CDT 12/14/2023 6:06 PM CDT Unknown Provider LAB POCT ORDERABLES- MANUAL Performing Organization Address [facility] de Phone Number [facility] [address] [place] [address], [facility] [address] [place] [address] * (ABNORMAL) Glucose, POCT (12/14/2023 1:33 PM CDT) Glucose, POCT, B 155(H) 70 - 140 mg/dL 12/14/2023 1:34 PM CDT PCLX Site Capillary 12/14/2023 1:34 PM CDT PCLX Last Intake 3-4 hours 12/14/2023 1:34 PM CDT PCLX Blood 12/14/2023 1:33 PM CDT 12/14/2023 1:35 PM CDT Unknown Provider LAB POCT ORDERABLES- MANUAL Performing Organization Address City/[facility] Co de Phone Number POC [facility] [address] [place] [address], [facility] [address] [place] [address] * Glucose, POCT (12/14/2023 9:51 AM CDT) Glucose, POCT, B 122 70 - 140 mg/dL 12/14/2023 9:54 AM CDT PCLX Site Capillary 12/14/2023 9:54 AM CDT PCLX Last Intake 3-4 hours 12/14/2023 9:54 AM CDT PCLX Blood 12/14/2023 9:51 AM CDT 12/14/2023 9:54 AM CDT Unknown Provider LAB POCT ORDERABLES- MANUAL Performing Organization Address [facility] Co de Phone Number POC [facility] [address] [place] [address], [facility] [address] [place] [address] * Glucose, POCT (12/14/2023 8:27 AM CDT) Glucose, POCT, B 113 70 - 140 mg/dL 12/14/2023 8:27 AM CDT PCLX Last Intake 1-2 hours 12/14/2023 8:27 AM CDT PCLX Blood 12/14/2023 8:27 AM CDT 12/14/2023 8:28 AM CDT Unknown Provider LAB POCT ORDERABLES- MANUAL Performing Organization Address City/[facility] Co de Phone Number [facility] [address] [place] [address], [facility] [address] [place] [phone] * (ABNORMAL) Hepatic Function Panel (12/14/2023 8:20 [...] CDT Vipul Caraballo M.D. LAB BLOOD ADD-ON [facility] [address] [place] [address], [facility] [address] [place] [address] * (ABNORMAL) CBC with Differential, Blood (12/14/2023 [...] CDT 12/14/2023 7:41 AM CDT Malka Montero M.D., M.H.S. LAB BLOOD AD D-ON [facility] [address] [place] [address], [facility] DTL [facility] [address] [place], [place] [phone] [place] [address] 200 [place] [address] * (ABNORMAL) Basic Metabolic Panel (12/14/2023 7:20 AM CDT) Potassium, S 3.9 3.6 - 5.2 mmol/L [...] CDT 12/14/2023 8:03 AM CDT Malka Montero M.D., M.H.S. LAB BLOOD AD D-ON Performing Organization Address City/[facility] Co de Phone Number [facility] [address] [place] [address], [facility] [address] [place] [address] * (ABNORMAL) Glucose, POCT (12/13/2023 8:38 PM CDT) Glucose, POCT, B 222(H) 70 - 140 mg/dL 12/13/2023 8:38 PM CDT PCLX Last Intake 2-3 hours 12/13/2023 8:38 PM CDT PCLX Blood 12/13/2023 8:38 PM CDT 12/13/2023 8:39 PM CDT Unknown Provider LAB POCT ORDERABLES- MANUAL Performing Organization Address City/[facility]/ZIP Co de Phone Number POC [facility] [address] [place] [address], [facility] PCLX [facility] [address] [place] [address] * (ABNORMAL) Microscopic Manual (12/13/2023 6:24 PM CDT) Microscopy Abnormal 12/13/2023 7:13 PM CDT DTL RBC <3 <3 /hpf 12/13/2023 7:13 PM CDT DTL WBC 11-20(A) /hpf 12/13/2023 7:13 PM CDT DTL Comment: ----REFERENCE VALUE---- <4 ??(Males) <11 (Females) Squamous Epithelial Cells, U 1-3 /hpf 12/13/2023 7:13 PM CDT DTL Urine 12/13/2023 6:24 PM CDT 12/13/2023 6:58 PM CDT Malka Montero M.D., M.H.S. LAB URINE OR DERABLES Performing Organization Address City/[facility] Co de Phone Number [facility] [address] [place] [address], [facility] [address] [place] [address] * (ABNORMAL) Dipstick, Urine (12/13/2023 6:24 PM [...] CDT 12/13/2023 6:48 PM CDT Malka Montero M.D., M.H.S. LAB URINE OR DERABLES Performing Organization Address City/[facility]/ZIP Co de Phone Number [facility] [address] [place] [address], [facility] [address] [place] [address] * Osmolality, Urine (12/13/2023 6:24 PM CDT) Osmolality, U 399 150 - 1150 mOsm/kg 12/13/2023 7:10 PM CDT DTL Urine 12/13/2023 6:24 PM CDT 12/13/2023 6:48 PM CDT Malka Montero M.D., M.H.S. LAB URINE OR DERABLES Performing Organization Address City/[facility]/ZIP Co de Phone Number [facility] [address] [place], [place] [address] [place] [address] 200 [place] [address] * pH, Urine (12/13/2023 6:24 PM CDT) Pathologist [facility] pH, U 5.7 4.5 - 8.0 12/13/2023 7:1 0 PM CDT DT Urine 12/13/2023 6:24 PM CDT 12/13/2023 6:48 PM CDT Malka Montero M.D., M.H.S. LAB URINE OR DERABLES Performing Organization Address City/[facility]/ZIP Co de Phone Number [facility] [address] [place], [place] [address] [place] [address] * (ABNORMAL) Urinalysis, with Microscopic: Urine, Midstream [...] CDT 12/13/2023 6:48 PM CDT Malka Montero M.D., M.H.S. LAB URINE OR DERABLES Performing Organization Address City/[facility] Co de Phone Number [facility] [address] [place] [address], [place] [address] * Bacterial Culture, Aerobic + Susceptibility, Urine (12/13/2023 6:24 PM CDT) [facility] Urine Culture No growth after 1 day of incubation. 12/15/2023 8:10 AM CDT DTL Urine (Urine, Midstream) 12/13/2023 6:24 PM CDT 12/13/2023 7:43 PM CDT Comment:Specimen Source Site : Urine Malka Montero M.D., M.H.S. LAB MICROBIO LOGY - GENERAL ORDERABLES Performing Organization Address [facility] Co de Phone Number [facility] [address] [place] [address], [facility] [address] [place] [address] * (ABNORMAL) Glucose, POCT (12/13/2023 4:04 PM CDT) Pathologist [facility] Glucose, POCT, B 141(H) 70 - 140 mg/dL 12/13/2023 4:05 PM CDT PCLX Site Capillary 12/13/2023 4:05 PM CDT PCLX Blood 12/13/2023 4:04 PM CDT 12/13/2023 4:05 PM CDT Unknown Provider LAB POCT ORDERABLES- MANUAL Performing Organization Address [facility] Co de Phone Number POC [facility] [address] [place] [address], [facility] [address] [place] [address] * (ABNORMAL) Glucose, POCT (12/13/2023 2:33 PM CDT) Glucose, POCT, B 143(H) 70 - 140 mg/dL 12/13/2023 2:34 PM CDT PCLX Blood 12/13/2023 2:33 PM CDT 12/13/2023 2:35 PM CDT Unknown Provider LAB POCT ORDERABLES- MANUAL Performing Organization Address [facility] de Phone Number POC [facility] [address] [place] [address], [facility] [address] [place] [address] * FL Fluoro Less Than 1 Hour (12/13/2023 2:05 PM CDT) Narrative ERCP LOS RST - 12/13/2023 2:06 PM CDT This exam does not require a radiologist review or interpretation. Please refer to the patient's medical record on this date for clinical details. Malka Montero M.D., M.H.S. IMG FLUOROSC OPY PROCEDURES Performing Organization Address [facility] Co de Phone Number ERCP LOS RST * Biliary Tract Malignancy, FISH (12/13/2023 1:40 [...] (MYC), and 9p21 (CDKN2A) ([employer], [place], [place]). 12/20/2023 10:32 AM CDT DTL Released by Mary Lott M.D. 12/20/2023 10:32 AM CDT DTL Interpretation Refer to Cytology/FISH combination report for final interpretation. 12/20/2023 10:32 AM CDT DTL Comment: ----ADDITIONAL INFORMATION---- This test was developed using an analyte specific reagent. Its performance characteristics were determined by [facility] in a manner consistent with CLIA requirements. This test has not been cleared or approved by the U.S. Food and Drug Administration. 12/13/2023 1:40 PM CDT 12/13/2023 2:52 PM CDT Malka Montero M.D., M.H.S. LAB GENETIC TESTING [facility] [address] [place] [address], [facility] DT [address] [facility] [address] [place] [address] * (ABNORMAL) Biliary Tract Malignancy-Cytology, FISH (12/13/2023 [...] results. (A) 12/20/2023 1:29 PM CDT DTL [place] (Bile, Duct) 12/13/2023 1:40 PM CDT Malka Montero M.D., M.H.S. LAB SURG PAT H ORDERABLES [facility] [address] [place] [address], [facility] DTL [address] [place] [address] * ERCP (12/13/2023 1:09 PM CDT) 12/13/2023 1:09 PM CDT [facility] 12/13/[facility]23 2:24 PM CDT Post-op [...] bile ? duct for temporary decompression. Narrative [facility] - 12/13/2023 2:24 PM CDT Oracio [...] ? than 6 weeks. Findings: ? The shroudman film was normal. The esophagus was successfully [...] ? No immediate complications. Sedation: ? General activities concierge Participation: I was present and participated during the entire ? procedure, including non-kirk portions. Matias Trimble MD 12/13/2023 2:06:53 PM This report has been signed electronically. Number of Addenda: 0 Malka Montero M.D., M.H.S. GI PROCEDURE ORDERABLES [facility] NA * Glucose, POCT (12/13/2023 12:47 PM CDT) Glucose, POCT, B 74 70 - 140 mg/dL 12/13/2023 12:49 PM CDT PCLX Site Capillary 12/13/2023 12:49 PM CDT PCLX Blood 12/13/2023 12:4 7 PM CDT 12/13/2023 12:50 PM CDT Unknown Provider LAB POCT ORDERABLES- MANUAL POC [facility] [address] [place] [address], [facility] PCLX [facility] POC [address] [place] [address] * Glucose, POCT (12/13/2023 11:29 AM CDT) Glucose, POCT, B 98 70 - 140 mg/dL 12/13/2023 11:36 AM CDT PCLX Blood 12/13/2023 11:2 9 AM CDT 12/13/2023 11:36 AM CDT Unknown Provider LAB POCT ORDERABLES- MANUAL POC [facility] [address] [place] [address], [facility] PCLX [facility] POC [address] [place] [address] * (ABNORMAL) Glucose, POCT (12/13/2023 9:17 AM CDT) Glucose, POCT, B 163(H) 70 - 140 mg/dL 12/13/2023 9:19 AM CDT PCLX Site Capillary 12/13/2023 9:19 AM CDT PCLX Last Intake 3-4 hours 12/13/2023 9:19 AM CDT PCLX Blood 12/13/2023 9:17 AM CDT 12/13/2023 9:19 AM CDT Unknown Provider LAB POCT ORDERABLES- MANUAL Performing Organization Address City/[facility]/ZIP Co de Phone Number POC [facility] [address] [place] [address], [facility] PCLX [facility] POC [address] [place] [address] * Lactate (12/13/2023 8:44 AM CDT) Lactate, P 1.7 0.5 - 2.2 mmol/L 12/13/2023 9:14 AM CDT STMA Blood 12/13/2023 8:44 AM CDT 12/13/2023 9:01 AM CDT Malka Montero M.D., M.H.S. LAB BLOOD NO N ADD-ON [facility] [address] [place] [address], [facility] STMA [facility] [address] [place] [address] * US Gallbladder and or Biliary Ducts [...] ERCP is recommended. Malka Montero M.D., M.H.S. [facility] US [place] RADHA * Interpretation of Outside CT Abdomen and [...] biliary duct dilation when compared to later [place] CT performed on the same day. 2. [...] IV contrast dated 12/12/2023. COMPARISON: ??Later performed [place] CT on the same day. FINDINGS: ?? Redemonstration of short segment distal common bile duct stricture (series 4 image 151) with upstream biliary biliary debris (but without identifiable obstructive stone or mass) and upstream biliary ductal dilation, but overall less severe since later performed [place] CT, for intrahepatic biliary ductal dilation has [...] not significantly changed compared to later performed [place] CT. This examination was performed in conjunction with a CT of the chest. Procedure Note Manjit Scott D.O. - 12/13/2023 EXAM: INTERPRETATION OF OUTSIDE CT ABDOMEN AND OR PELVIS CT abdomen andpelvis with IV contrast dated 12/12/2023. COMPARISON: Later performed [place] CT on the same day. FINDINGS: Redemonstration of short segment distal common bile duct stricture (series4 image 151) with upstream biliary biliary debris (but withoutidentifiable obstructive stone or mass) and upstream biliary ductaldilation, but overall less severe since later performed [place] CT, for intrahepatic biliary ductal dilation has [...] has not significantly changed compared to laterperformed kens[place] CT. This examination was performed in conjunction with a CT of the chest. IMPRESSION: 1. Redemonstration of distal common bile duct stricture with persistentdilation of the common bile duct but less severe intrahepatic biliary ductdilation when compared to later k[place] CT performed on the same day. 2. Inflammation of the biliary tree with imaging findings indicative ofcholangitis. No intrahepatic abscess identified. 3. Similar prominent gastrohepatic and portacaval lymph nodes which couldbe reactive, however, indeterminate given the potential malignant etiologyof the common bile duct stricture. 4. Mild inflammation extending from the splenic flexure to rectum. Nopericolonic abscess or bowel obstruction. Vahid Peña M.D. [facility] CT PROCEDU RES * Bacteria / Windy Culture, Blood #2 (12/13/2023 5:56 AM CDT) Pathologist [facility] Bacteria/Mandi da Culture, Blood No growth after 5 days of incubation. 12/18/2023 7:02 AM CDT DTL Blood (Blood, Peripheral Draw) 12/13/2023 5:56 AM CDT 12/13/2023 6:35 AM CDT Comment:Specimen Source Site : Blood Malka Montero M.D., M.H.S. LAB MICROBIO LOGY - GENERAL ORDERABLES Performing Organization Address [facility] Co de Phone Number [facility] [address] [place] [address], [facility] [address] [place] [address] * Cystatin C with Estimated GFR (12/13/2023 5:55 AM CDT) Pathologist [facility] eGFR by Cystatin C 63 >60 mL/min/BSA [...] - 1.21 mg/L 12/13/2023 7:31 AM CDT DT Blood (Blood, Venous) 12/13/2023 5:55 AM CDT 12/13/2023 6:57 AM CDT Malka Montero M.D., M.H.S. LAB BLOOD AD D-ON Performing Organization Address City/[facility] Co de Phone Number [facility] [address] [place] [address], [facility] [address] [place] [address] * Lactate for Sepsis with Reflex (12/13/2023 5:55 AM CDT) Lactate, P 2.1 0.5 - 2.2 mmol/L 12/13/2023 6:[address] [facility] Blood (Blood, Venous) 12/13/2023 5:55 AM CDT 12/13/2023 6:17 AM CDT Malka Montero M.D., M.H.S. LAB BLOOD NO N ADD-ON Performing Organization Address [facility] Co de Phone Number [facility] [address] [place] [address], [facility] [address] [place] [address] * (ABNORMAL) Prothrombin Time (PT) (12/13/2023 5:55 AM CDT) Prothrombin Time, P 18.4(H) 9.4 - 12.5 sec 12/13/2023 6:[address] [facility] INR 1.7 0.9 - 1.1 12/13/2023 6:[address] [facility] Comment: ----ADDITIONAL INFORMATION---- Standard intensity warfarin therapeutic range: 2.0 to 3.0 ?? High intensity warfarin therapeutic range: 2.5 to 3.5 Blood (Blood, Venous) 12/13/2023 5:55 AM CDT 12/13/2023 6:17 AM CDT Malka Montero M.D., M.H.S. LAB BLOOD AD D-ON Performing Organization Address [facility] Co de Phone Number [facility] [address] [place] [address], [facility] [address] [place] [address] * (ABNORMAL) Hepatic Function Panel (12/13/2023 5:55 AM CDT) Bilirubin, Total, S 3.8(H) 0.0 - 1.2 [...] LAB BLOOD AD D-ON Performing Organization Address City/[facility]/[place] [address] * Phosphorus Inorganic (12/13/2023 5:55 AM CDT) Phosphorus (Inorganic), S 3.1 2.5 - 4.5 mg/dL 12/13/2023 7:31 AM CDT DTL Blood (Blood, Venous) 12/13/2023 5:55 AM CDT 12/13/2023 6:57 AM CDT Malka Montero M.D., M.H.S. LAB BLOOD AD D-ON Performing Organization Address City/[facility]/ZIP Co de Phone Number [facility] [address] [place] [address], [place] [address] * Magnesium (12/13/2023 5:55 AM CDT) Magnesium, S 1.9 1.7 - 2.3 mg/dL 12/13/2023 7:31 AM CDT DTL Blood (Blood, Venous) 12/13/2023 5:55 AM CDT 12/13/2023 6:57 AM CDT Malka Montero M.D., M.H.S. LAB BLOOD AD D-ON [facility] [address] [place] [address], [facility] [address] [place] [address] * (ABNORMAL) Basic Metabolic Panel (12/13/2023 5:55 [...] Montero M.D., M.H.S. LAB BLOOD AD D-ON [facility] [address] [place] [address], [facility] STMA [facility] [address] [place] [address] * (ABNORMAL) CBC with Differential, Blood (12/13/2023 [...] LAB BLOOD AD D-ON Performing Organization Address [facility] Co de Phone Number [facility] [address] [place] [address], [facility] STMA [facility] [address] [place] [address] [facility] [address] [place] [address] * Bacteria / Windy Culture, Blood #1 (12/13/2023 5:43 AM CDT) Bacteria/Mandi da Culture, Blood No growth after 5 days of incubation. 12/18/2023 7:02 AM CDT DTL Blood (Blood, Peripheral Draw) 12/13/2023 5:43 AM CDT 12/13/2023 6:34 AM CDT Comment:Specimen Source Site : Blood Malka Montero M.D., M.H.S. LAB MICROBIO LOGY - GENERAL ORDERABLES Performing Organization Address [facility] de Phone Number [facility] [address] DTL [facility] [address] [place] [address] * (ABNORMAL) Lipase (12/13/2023 5:33 AM CDT) Lipase, S 12(L) 13 - 60 U/L 12/13/2023 10:35 AM CDT DTL Blood (Blood, Venous) 12/13/2023 5:33 AM CDT 12/13/2023 10:09 AM CDT Malka Montero M.D., M.H.S. LAB BLOOD AD D-ON [facility] [address] [place] [address], [place] DTL [facility] [address] [place] [address] documented in this encounter Visit Diagnoses Diagnosis [...] shown in CDT. Scheduled Medication Order 12/13/2023 12/14/202312/15/[address] tablet 81 mg 81 mg, oral, Daily, First dose on Mon12/13/23 at 0900, Swallow whole. Do NOT crush, chew, or split tablet. 1122 (Not Given - Provider: Salena Arreola R.N. - Reason: See Provider Order - Comment: Held per providers order due to testing today) 0833 (Given - Provider: Sandra Rizvi R.N.) 0838 (Given - Provider: Sandra Rizvi R.N.) atorvastatin tablet 20 mg (LIPITOR) 20 [...] 1215 1221 (Given - Provider: Sandra Rizvi RHerbertN.) insulin aspart U-100 injection 0-13 Units (NovoLOG [...] orders 0921 (Given - Provider: Salena Arreola RHerbertN.)1449 (Not Given - Provider: Salena Arreola R.N. - Reason: Other - Comment: Having procedure,)1639 (Given - Provider: Salena Arreola RHerbertN.) 0829 (Not Given - Provider: Liss RiosN. - Reason: Order parameters not met)1357 (Given - Provider: Sandra Rizvi RHerbertN.)1820 (Given - Provider: Sandra Rizvi R.N.) 0902 (Given - Provider: Sandra Rizvi R.N.)1223 (Given - Provider: Liss RiosN.) metroNIDAZOLE tablet 500 mg (FLAGYL) 500 mg, oral, 3 times daily, First dose on Mon12/13/23 at 0900, Indications: Intra-abdominal infection, community acquired 0900 (Not Given - Provider: Criss Echols RHerbertN. - Reason: Patient not available - Comment: off unit for procedure)1400 (Not Given - Provider: Criss Echols R.N. - Reason: Patient not available - Comment: pt off unit for procedure)203 (Given - Provider: Hyacinth Mckeon RHerbertN.) 0833 (Given - Provider: Sandra Rizvi RHerbertN.)1357 (Given - Provider: Sandra Rizvi R.N.)2034 (Given - Provider: Geovanny De Los Santos RHerbertN.) 0839 (Given - Provider: Liss RiosN.)1231 (Given - Provider: Sandra Rizvi R.N.) polyethylene glycol powder packet 17 g (MIRALAX) 17 g, oral, Daily, First dose on Mon12/13/23 at 0900, Ordered sequence of administration: polyethylene glycol, then bisacodyl until BM achieved. Avoid mixing with starch-based thickened liquids. 1017 (Not Given - Provider: Salena Arreola R.N. - Reason: Patient/family refused) 0833 (Given - Provider: Sandra Rizvi R.N.) 0839 (Not Given - Provider: Sandra Rizvi R.N. - Reason: Patient/family refused) sennosides-docusate sodium 8.6-50 mg per tablet 1 tablet (SENOKOT-S) 1 tablet, oral, 2 times daily, First dose on Mon12/13/23 at 0900 1016 (Not Given - Provider: Salena Arreola R.N. - Reason: Patient/family refused)2034 (Not Given - Provider: Hyacinth Mckeon R.N. - Reason: Patient/family refused) 0833 (Given - Provider: Sandra Rizvi R.N.)2033 (Given - Provider: Geovanny De Los Santos R.N.) 0839 (Given - Provider: Sandra Rizvi R.N.) PRN Medication Order 12/13/2023 12/14/2023 12/15/2023 acetaminophen tablet 500 mg (TYLENOL) 500 mg, oral, Every 6 hours PRN, mild pain or score 1-3 of 10, moderate pain or score 4-6 of 10, severe pain or score 7-10 of 10, headaches, Starting on Mon12/13/23 at 0451 0201 (Given - Provider: Hilary Mckeon R.NHerbert)1519 (Given - Provider: Anne Altamirano RRafal) documented in this encounter
--- OUTSIDE RECORDS SUMMARY | 2024-01-20 12:40 | XMS_ITS | Encounter Summary ---
Author Organization [facility] Address [address] [place] [address] Care Team Providers Care Box Printer Name Role Phone Unavailable Primary Care Provider Unavailabl e Encounter Details Date Type Department Care Team (Latest Contact Info) Description 12/13/2023 1:10 PM CDT Ancillary Procedure Department of Gastroenterology Social History Tobacco Use Types Packs/Day Years Used Date Smoking Tobacco: Never Smokeless Tobacco: Never Alcohol Use Standard Drinks/Week Comments No 0 (1 standard drink = 0.6 oz pur e alcohol) [facility] Utilities Answer Date Recorded In the past 12 months has [facility] electric, gas, oil, or water company threatened [...] your living situation today? I have [facility] place to live 12/13/2023 Sex and Gender [...] Comprehensive Visit Department of Ophthalmology in [address] [address] Alan Araujo Jr., M.D. [address] [place] [address] Discharge Disposition: Home or Self [...]
--- OUTSIDE RECORDS SUMMARY | 2024-01-20 12:40 | XMS_ITS | Encounter Summary ---
Author Organization [facility] Address [address] [place] [address] Care Team Providers Care Women'S Activities Adviser Name Role Phone Unavailable Primary Care Provider Unavailabl e Reason for Visit * Outpatient (Routine) - Closed Specialty Diagnoses / Procedures Referred By Contact Referred To Contact Gastroenterology and Hepatology Diagnoses Abnormal Findings On Diagnostic Imaging Of Other Abdominal Regions Including Retroperitoneum Audra Doss, C.N.P. [address] [place] [address] [facility] Referral ID Status Reason Start Date Expiration Date Visits Re quested Visits Authorized [id number] Closed 11/16/2023 05/17/2025 1 1 Encounter Details Date Type Department Care Team (Latest Contact Info) Description 12/20/2023 8:00 AM CDT Comprehensive Visit Division of Gastroenterology in [place], [place] [address] [place] [phone] Audra Doss, C.N.P. [address] [place] [phone] Omid Dillard M.D. [address] [place] [phone] Stricture Biliary (HCC) (Primary Dx); Abnormal Findings On Diagnostic Imaging Of Other Abdominal Regions Including Retroperitoneum; Stone Common Duct; Cholangitis Acute (HCC) Social History Tobacco Use Types Packs/Day Years Used Date Smoking Tobacco: Never Smokeless Tobacco: Never Alcohol Use Standard Drinks/Week Comments No 0 (1 standard drink = 0.6 oz pur e alcohol) [facility] Utilities Answer Date Recorded In the past 12 months has e [employer], gas, oil, or water [email or web address] threatened to shut off services in your [...] your living situation today? I have a [facility] place to live 12/13/2023 Sex and Gender Information Value Date Recorded Sex Assigned at Female 11/29/2023 7:47 PM CDT Gender Identity Female 11/29/2023 7:47 PM CDT Sexual Orientation Straight 11/29/2023 7: 47 PM CDT documented as of this encounter Consult Notes * Omid Dillard M.D. - 12/20/2023 8:00 AM CDT [facility] Outpatient Consultation NAME: Charla Graham Date of Consultation: 12/20/2023 Referring Physician: Audra Doss C.N.P. Chief Complaint/Reason for Consult: Stricture Biliary (HCC) [K83.1] History of Present Illness: Ms. Graham is a 83 y.o. female who is being seen in clinic today for a finding of distal common bile duct stricture. The patient has a history of thromboembolic CVA and has been on Plavix. She reports that she has been extremely fatigued and tired for several months and has been experiencing abdominal and back pain. She was admitted last week, December 12 for sepsis/cholangitis. Imaging that was performed prior to this admission demonstrated a significant common bile duct stricture without an obviouspancreatic or biliary mass. Given that she was on anticoagulation, when she was admitted to the hospital, she underwent an ERCP with biliary stent placement. A biliary sphincterotomy was not performed. During that examination, choledocholithiasis was also identified however the stones were not extracted. Of note, she has a history of diabetes mellitus and her most recent hemoglobin A1c was 7.6%. She isnot on insulin at this time but is taking oral medication. Review of Systems: All other systems reviewed and negative unless mentioned in the history of present illness, patientprovided information or problem list. History Review: The following portions of the patient's history were reviewed and updated as appropriate: allergies, current medications, family history, medical history, social history, surgical history and problemlist. Objective: Physical Exam: General: Sitting comfortably in no acute distress. Psychiatric: Awake, alert and oriented. Hard of hearing Skin: No obvious rashes. Assessment/Plan: #1 Abnormal Findings On Diagnostic Imaging Of Other Abdominal Regions Including Retroperitoneum #2 Stone Common Duct #3 Stricture Biliary (HCC) #4 Cholangitis Acute (HCC) Ms. Graham is a 83 y.o. female who presents for evaluation and management of common bile duct stricture in the setting of recent cholangitis and findings of choledocholithiasis. She underwent biliary brushing at the time of the procedure, however the cytopathology is still pending. Recommendations: We discussed that she will require an endoscopic ultrasound and repeat ERCP while off Plavix. She was advised that she should maintain her aspirin. Pending the cytology results, if cytology is concerning for malignancy, the EUS would be performed for staging and sampling regional lymph nodes and the ERCP would be to change the plastic stent to ametal stent. However if cytology results were negative, we would recommend an endoscopic ultrasound for samplingof the primary tumor and regional lymph nodes as well as exchange the plastic stent for a fully covered metal stent to facilitate stone extraction. We will update lab work today including a hepatic panel, CBC, BMP and tumor markers. Follow up recommendations: Phone call when the cytology results are available. BILLIN minutes spent in a combination of the following activities: visit with the patient; reviewing records; interpreting test results; discussing plans with the patient and/or family; discussing and coordinating care with other team members and communicating / reviewing care plan with local provider(s). Omid Dillard M.D. 12/20/2023 documented in this encounter Plan of Treatment Upcoming Encounters Date Type Department Care Team (Latest Contact Info) Description 02/19/2024 9:30 AM CDT Comprehensive Visit Department of Ophthalmology in [address] [phone] Alan Araujo Jr., M.D. [address] [place] [phone] Discharge Disposition: Home or Self Care documented as of this encounter Results * (ABNORMAL) Prealbumin (PAB) (12/20/2023 9:56 AM CDT) Pathologist [facility] Prealbumin (PAB), S 17(L) 19 - 38 mg/dL 12/21/2023 10:54 AM CDT [facility] Blood (Blood, Venous) 12/20/2023 9:56 AM CDT 12/21/2023 6:09 AM CDT Omid Dillard M.D. LAB BLOOD ADD- ON [facility] [address] [place] [address] [facility] [address] [place] [address] * Cell-free DNA KRAS 12, 13, 61,146, Blood (12/20/2023 9:56 AM CDT) [facility] Result Summary NEGATIVE 12/29/2023 6:59 PM CDT [...] developed and its performance characteristics determined by [facility] in a manner consistent with CLIA requirements. ??This test has not been cleared or approved by the U.S. Food and Drug Administration. Blood (Blood, Venous) 12/20/2023 9:56 AM CDT 12/20/2023 10:54 AM CDT Narrative [facility] - 12/29/2023 6:59 PM CDT Specimen Information: Specimen ID: [id number] Specimen Type: Blood Specimen Collection Start Date: 12/20/2023 ??9:56 AM Specimen Received Date: 12/20/2023 10:54 AM Specimen ID: [id number] Specimen Type: Blood Specimen Collection Start Date: 12/20/2023 ??9:56 AM Specimen Received Date: 12/20/2023 10:54 AM Omid Dillard M.D. LAB GENETIC TE STING [facility] [address] [place] [address], [facility] DTL [address] [place] [address] * (ABNORMAL) Carbohydrate Antigen 19-9 (CA 19-9) (12/20/2023 9:56 AM CDT) Carbohydrate Ag 19-9, S 178(H) <35 U/mL 12/20/2023 5:55 PM CDT [facility] Comment: ----ADDITIONAL INFORMATION---- The testing method is an immunoenzymatic assay manufactured by [employer]. and performed on the [employer] DxI 800. ? Values obtained with different assay methods or kits may be different and cannot be used interchangeably. ? Test results cannot be interpreted as absolute evidence for the presence or absence of malignant disease. Blood (Blood, Venous) 12/20/2023 9:56 AM CDT 12/20/2023 5:01 PM CDT Omid Dillard M.D. LAB BLOOD ADD- ON [facility] [address] [place] [address] [facility] [address] [place] [address] * (ABNORMAL) Basic Metabolic Panel (12/20/2023 9:56 AM CDT) Pathologist [facility] Potassium, S 4.8 3.6 - 5.2 mmol/L 12/20/2023 10:46 AM CDT DTL Sodium, S 139 135 - 145 mmol/L 12/20/2023 10:46 AM CDT DTL Chloride, S 106 98 - 107 mmol/L 12/20/2023 10:46 AM CDT DTL Bicarbonate, S 23 22 - 29 mmol/L 12/20/2023 10:46 AM CDT DTL Anion Gap 10 7 - 15 12/20/2023 10:46 AM CDT DTL BUN (Blood Urea Nitrogen), S 17 6 - 21 mg/dL 12/20/2023 10:46 AM CDT DTL Creatinine 0.82 0.59 - 1.04 mg/dL 12/20/2023 10:46 AM CDT DTL Estimated GFR (eGFR) 70 >=60 mL/min/BSA 12/20/2023 10:46 AM CDT DTL Comment: Estimated GFR calculated using the 2020 CKD_EPI creatinine equation. Calcium, Total, S 9.7 8.8 - 10.2 mg/dL 12/20/2023 10:46 AM CDT DTL Glucose, S 172(H) 70 - 140 mg/dL 12/20/2023 10:46 AM CDT DTL Blood (Blood, Venous) 12/20/2023 9:56 AM CDT 12/20/2023 10:29 AM CDT Omid Dillard M.D. LAB BLOOD ADD- ON [facility] [address] [place] [address], [facility] [address] [place] [address] * (ABNORMAL) Hepatic Function Panel (12/20/2023 9:56 AM CDT) Bilirubin, Total, S 1.0 0.0 - 1.2 mg/dL 12/20/2023 10:46 AM CDT DTL Bilirubin, Direct, S 0.6(H) 0.0 - 0.3 mg/dL 12/20/2023 10:46 AM CDT DTL Aspartate Aminotransferase (AST), S 64(H) 8 - 43 U/L 12/20/2023 10:46 AM CDT DTL Alanine Aminotransferase (ALT), S 60(H) 7 - 45 U/L 12/20/2023 10:46 AM CDT DTL Alkaline Phosphatase, S 265(H) 35 - 104 U/L 12/20/2023 10:46 AM CDT DTL Albumin, S 4.2 3.5 - 5.0 g/dL 12/20/2023 10:46 AM CDT DTL Protein, Total, S 7.3 6.3 - 7.9 g/dL 12/20/2023 10:46 AM CDT DTL Blood (Blood, Venous) 12/20/2023 9:56 AM CDT 12/20/2023 10:29 AM CDT Oimd Dillard M.D. LAB BLOOD ADD- ON [facility] [address] [place] [address], [place] DTL [facility] [address] [place] [address] documented in this encounter Visit Diagnoses Diagnosis Stricture Biliary (HCC)- Primary Abnormal Findings On Diagnostic Imaging Of Other Abdominal Regions Including Retroperitoneum Stone Common Duct Cholangitis Acute (HCC) Abnormal Findings On Diagnostic Imaging Of Other Abdominal Regions Including Retroperitoneum Stone Common Duct documented in this encounter
--- OUTSIDE RECORDS SUMMARY | 2024-01-20 12:40 | XMS_ITS | Encounter Summary ---
Author Organization [facility] Address [address] [place] [address] Care Team Providers Care Engineer Of System Development Name Role Phone Unavailable Primary Care Provider Unavailabl e Encounter Details Date Type Department Care Team (Latest Contact Info) Description 12/12/2023 10:26 AM CDT - 12/12/2023 11:33 AM CDT Hospital Encounter Department of Laboratory Medicine and Pathology, [facility] in [place], [place] [address] [place] [phone] Calvin Bailey M.D. [address] [place] [phone] Mass Pancreas Discharge Disposition: Home or Self Care Social History Tobacco Use Types Packs/Day Years Used Date Smoking Tobacco: Never Smokeless Tobacco: Never Alcohol Use Standard Drinks/Week Comments No 0 (1 standard drink = 0.6 oz pur e alcohol) [facility] Utilities Answer Date Recorded In the past 12 months has [employer], gas, oil, or water [employer] threatened to shut off services in your [...] your living situation today? I have a [facility] place to live 12/13/2023 Sex and Gender Information Value Date Recorded Sex Assigned at Female 11/29/2023 7:47 PM CDT Gender Identity Female 11/29/2023 7:47 PM CDT Sexual Orientation Straight 11/29/2023 7: 47 PM CDT documented as of this encounter Medications at Time of Discharge Medication Sig Dispensed Refills Start Date End Date A LIPOIC [id number] ORAL Take 1 capsule by mouth daily. [...] glucose scanning reader ([employer] Barbie 14 Day Howard) by other route. 08/25/2022 flash glucose scanning reader (FREESTYLE BARBIE) by other route. 08/25/2022 flash glucose sensor (FREESTYLE BARBIE) kit by other route. 04/25/2023 glipiZIDE (GLUCOTROL) 5 mg tablet Take 5 mg by mouth 2 (two) times a day before breakfast and dinner. 10/08/2021 aspirin 81 mg capsule Take 81 [...] CDT Comprehensive Visit Department of Ophthalmology in [address] [phone] Alan Araujo Jr., M.D. [address] [phone] Discharge Disposition: Home or Self Care documented as of this encounter Procedures Procedure Name Priority Date/Time Associated Diagnosis Comments CFDNA KRAS 12, 13, 61, 146 BLOOD [...] M.D. LAB BLOOD ADD-ON Performing Organization Address [facility] de Phone Number [facility] [address] DTL [facility] 200 [place] [address] * (ABNORMAL) Prothrombin Time (PT) (12/12/2023 10:43 [...] M.D. LAB BLOOD ADD-ON Performing Organization Address [facility] Co de Phone Number [facility] [address] DTL [facility] [address] [place] [address] * Prealbumin (PAB) (12/12/2023 10:43 AM CDT) [facility] Prealbumin (PAB), S 22 19 - 38 mg/dL 12/13/2023 10:38 AM CDT [facility] Blood (Blood, Venous) 12/12/2023 10:43 AM CDT 12/13/2023 6:44 AM CDT Calvin Bailey M.D. LAB BLOOD ADD-ON [facility] [address] [place] [address] [facility] [address] [place] [address] * Cell-free DNA KRAS 12, 13, 61,146, Blood (12/12/2023 10:43 AM CDT) [facility] Result Summary NEGATIVE 01/01/2024 4:12 PM CDT DTL Result Negative 01/01/2024 4:12 PM CDT DTL Specimen WB, Whole Blood 01/01/2024 4:12 PM CDT DTL Released By Christophe Rangel M.D., Ph.D. 01/01/2024 4:12 PM CDT DTL Interpretation The absence of a detectable KRAS mutation in the blood of this patient does not rule out the presence of a KRAS mutation in the patient's tumor. Additional testing of the tumor sample is recommended if available. 01/01/2024 4:12 PM CDT DTL Comment: ----ADDITIONAL INFORMATION---- Cell-free [...] developed and its performance characteristics determined by [facility] in a manner consistent with CLIA requirements. ??This test has not been cleared or approved by the U.S. Food and Drug Administration. Blood (Blood, Venous) 12/12/2023 10:43 AM CDT 12/12/2023 11:47 AM CDT Calvin Bailey M.D. LAB GENETIC TESTI Performing Organization Address City/State/[facility] Co de Phone Number [facility] 200 [place], [place] [phone] [place] [address] 200 [facility] 200 [place] [address] * (ABNORMAL) Carbohydrate Antigen 19-9 (CA 19-9) (12/12/2023 10:43 AM CDT) Carbohydrate Ag 19-9, S 84(H) <35 U/mL 12/12/2023 3:08 PM CDT [facility] Comment: ----ADDITIONAL INFORMATION---- The testing method is an immunoenzymatic assay manufactured by [employer]. and performed on the [employer] 800. ? Values obtained with different assay methods or kits may be different and cannot be used interchangeably. ? Test results cannot be interpreted as absolute evidence for the presence or absence of malignant disease. Blood (Blood, Venous) 12/12/2023 10:43 AM CDT 12/12/2023 2:07 PM CDT Calvin Bailey M.D. LAB BLOOD ADD-ON [facility] [address] [place] [address] [facility] [address] [place] [address] * (ABNORMAL) Bilirubin, Direct (12/12/2023 10:43 AM CDT) Bilirubin, Direct, S 1.4(H) 0.0 - 0.3 mg/dL 12/12/2023 11:42 AM CDT DTL Blood (Blood, Venous) 12/12/2023 10:43 AM CDT 12/12/2023 11:24 AM CDT Calvin Bailey M.D. LAB BLOOD ADD-ON [facility] 200 [place] [address], [facility] 200 [place] [address] * (ABNORMAL) Comprehensive Metabolic Panel (12/12/2023 10:43 [...] CDT Calvin Bailey M.D. LAB BLOOD ADD-ON [facility] [address] [place] [address], [facility] [address] [place] [address] * (ABNORMAL) CBC with Differential, Blood (12/12/2023 [...] CDT Calvin Bailey M.D. LAB BLOOD ADD-ON [facility] [address] [place] [address], [place] DTL [facility] [address] [place] [address] [facility] [address] [place] [address] documented in this encounter Visit Diagnoses Diagnosis Mass Pancreas documented in this encounter
--- OUTSIDE RECORDS SUMMARY | 2024-01-20 12:40 | XMS_ITS | Encounter Summary ---
Author Organization [facility] Address [address] [place] [address] Care Team Providers Care Community Outreach Coordinator Name Role Phone Unavailable Primary Care Provider Unavailabl e Encounter Details Date Type Department Care Team (Late st Contact Info) Description 12/13/2023 5:35 AM CDT Ancillary Procedure Department of Radiology in [place], [place] [address] [place] [phone] Vahid Kaplan M.D. [address] [place] [phone] Social History Tobacco Use Types Packs/Day Years Used Date Smoking Tobacco: Never Smokeless Tobacco: Never Alcohol Use Standard Drinks/Week Comments No 0 (1 standard drink = 0.6 oz pur e alcohol) [facility] Utilities Answer Date Recorded In the past 12 months has [facility] [employer], gas, oil, or water [employer] threatened to shut off services in your [...] your living situation today? I have a [facility] place to live 12/13/2023 Sex and [...] CDT Comprehensive Visit Department of Ophthalmology in [place], [place] [address] [place] [phone] Alan Araujo Jr., M.D. [address] [phone] Discharge Disposition: Home or Self [...] biliary duct dilation when compared to later [place] performed on the same day. 2. [...] IV contrast dated 12/12/2023. COMPARISON: ??Later performed [place] on the same day. FINDINGS: ?? 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 This examination was performed in conjunction with a CT of the chest. Procedure Note Manjit Scott D.O. - 12/13/2023 EXAM: INTERPRETATION OF OUTSIDE CT ABDOMEN AND OR PELVIS CT abdomen andpelvis with IV contrast dated 12/12/2023. COMPARISON: Later performed [place] on the same day. 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 This examination was performed in conjunction with a CT of the chest. IMPRESSION: 1. 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 2. [...]
--- OUTSIDE RECORDS SUMMARY | 2024-01-20 12:40 | XMS_ITS | Encounter Summary ---
Author Organization [facility] Address [address] [place] [address] Care Team Providers Care Powerhouse Mechanic Name Role Phone Unavailable Primary Care Provider Unavailabl e Encounter Details Date Type Department Care Team (Latest Contact Info) Description 12/20/2023 9:20 AM CDT - 12/20/2023 11:59 PM CDT Hospital Encounter Department of Laboratory Medicine and Pathology, [facility] in [place], [place] [address] [place] [phone] Omid Dillard M.D. [address] [place] [phone] Abnormal Findings On Diagnostic Imaging Of Other Abdominal Regions Including Retroperitoneum; Stone Common Duct Discharge Disposition: Home or Self Care Social History Tobacco Use Types Packs/Day Years Used Date Smoking Tobacco: Never Smokeless Tobacco: Never Alcohol Use Standard Drinks/Week Comments No 0 (1 standard drink = 0.6 oz pur e alcohol) [facility] Utilities Answer Date Recorded In the past 12 months has [employer], gas, oil, or water [employer] threatened to shut off services in your [...] your living situation today? I have a [facility] place to live 12/13/2023 Sex and Gender Information Value Date Recorded Sex Assigned at Female 11/29/2023 7:47 PM CDT Gender Identity Female 11/29/2023 7:47 PM CDT Sexual Orientation Straight 11/29/2023 7: 47 PM CDT documented as of this encounter Medications at Time of Discharge Medication Sig Dispensed Refills Start Date End Date A LIPOIC [id number] ORAL Take 1 capsule by mouth daily. [...] by mouth daily. flash glucose scanning reader ([employer]ivo[employer] Barbie 14 Day [place]) by other route. 08/25/2022 flash glucose scanning [...] CDT Comprehensive Visit Department of Ophthalmology in [address] [phone] Alan Araujo Jr., M.D. [address] [place] [address] Discharge Disposition: Home or Self [...] Abdominal Regions Including Retroperitoneum Stone Common Duct PREALBUMIN (PAB), S Routine 12/20/2023 9 :56 AM CDT Abnormal Findings On Diagnostic Imaging Of Other Abdominal Regions Including Retroperitoneum Stone Common Duct BASIC METABOLIC PANEL, S/P Routine 12/20/2023 9:56 AM CDT Abnormal Findings On Diagnostic Imaging Of Other Abdominal Regions Including Retroperitoneum Stone Common Duct documented in this encounter Results * (ABNORMAL) Prealbumin (PAB) (12/20/2023 9:56 AM CDT) Pathologist [facility] Prealbumin (PAB), S 17(L) 19 - 38 mg/dL 12/21/2023 10:54 AM CDT [facility] Blood (Blood, Venous) 12/20/2023 9:56 AM CDT 12/21/2023 6:09 AM CDT Omid Dillard M.D. LAB BLOOD ADD- ON [facility] [address] [place] [address] [facility] [address] [place] [address] * Cell-free DNA KRAS 12, 13, 61,146, Blood (12/20/2023 9:56 AM CDT) [facility] Result Summary NEGATIVE 12/29/2023 6:59 PM CDT [...] developed and its performance characteristics determined by [facility] in a manner consistent with CLIA requirements. ??This test has not been cleared or approved by the U.S. Food and Drug Administration. Blood (Blood, Venous) 12/20/2023 9:56 AM CDT 12/20/2023 10:[address] [facility] - 12/29/2023 6:59 PM CDT Specimen Information: Specimen ID: [id number] Specimen Type: Blood Specimen Collection Start Date: 12/20/2023 ??9:56 AM Specimen Received Date: 12/20/2023 10:54 AM Specimen ID: [id number] Specimen Type: Blood Specimen Collection Start Date: 12/20/2023 ??9:56 AM Specimen Received Date: 12/20/2023 10:54 AM Omid Dillard M.D. LAB GENETIC TE STING Performing Organization Address City/[facility] Co de Phone Number [facility] 200 [place] [address], [facility] DTL 200 [facility] 200 [place] [address] * (ABNORMAL) Carbohydrate Antigen 19-9 (CA 19-9) (12/20/2023 9:56 AM CDT) Carbohydrate Ag 19-9, S 178(H) <35 U/mL 12/20/2023 5:55 PM CDT [facility] Comment: ----ADDITIONAL INFORMATION---- The testing method is an immunoenzymatic assay manufactured by [employer] and performed on the Soonr DxI 800. ? Values obtained with different assay methods or kits may be different and cannot be used interchangeably. ? Test results cannot be interpreted as absolute evidence for the presence or absence of malignant disease. Blood (Blood, Venous) 12/20/2023 9:56 AM CDT 12/20/2023 5:01 PM CDT Omid Dillard M.D. LAB BLOOD ADD- ON Performing Organization Address [facility]/ZIP Co de Phone Number [facility] [address] [place] [address] [facility] [address] [place] [address] * (ABNORMAL) Basic Metabolic Panel (12/20/2023 9:56 AM CDT) Potassium, S 4.8 3.6 - 5.2 mmol/L [...] Omid Dillard M.D. LAB BLOOD ADD- ON [facility] [address] [place] [address], [facility] [address] [place] [address] * (ABNORMAL) Hepatic Function Panel (12/20/2023 9:56 [...] Omid Dillard M.D. LAB BLOOD ADD- ON [facility] [address] [place] [address], [facility] DTL [facility] [address] [place] [address] documented in this encounter Visit Diagnoses Diagnosis Abnormal Findings On Diagnostic Imaging Of Other Abdominal Regions Including Retroperitoneum Stone Common Duct documented in this encounter
--- OUTSIDE RECORDS SUMMARY | 2024-01-20 12:40 | XMS_ITS | Encounter Summary ---
Author Organization [facility] Address [address] [place] [address] Care Team Providers Care Campus Security Director Name Role Phone Elsewhere, Pcp Primary Care Provider Unavailabl e Encounter Details Date Type Department Care Team (Latest Contact Info) Description 12/13/2023 Intake [facility] Social History Tobacco Use Types Packs/Day Years Used Date Smoking Tobacco: Never Smokeless Tobacco: Never Alcohol Use Standard Drinks/Week Comments No 0 (1 standard drink = 0.6 oz pur e alcohol) [facility] Utilities Answer Date Recorded In the past 12 months has [facility] electric, gas, oil, or water [...] your living situation today? I have a [facility] place to live 12/13/2023 Sex and [...] CDT Comprehensive Visit Department of Ophthalmology in [address] [phone] Alan Araujo Jr., M.D. [address] [place] [phone] Discharge Disposition: Home or Self Care documented as of this encounter Visit Diagnoses Not on filedocumented in this encounter Care Teams Campus Security Director Relationship Specialty Start Date End Date Elsewhere, Pcp PCP - General Internal Medicine 01/05/24 documented as of this encounter
--- OUTSIDE RECORDS SUMMARY | 2024-01-20 12:40 | XMS_ITS | Encounter Summary ---
Author Organization [facility] Address [address] [place] [address] Care Team Providers Care Foot Gatherer Name Role Phone Elsewhere, Pcp Primary Care Provider Unavailabl e Encounter Details Date Type Department Care Team (Latest Contact Info) Description 12/12/2023 Clinical Communication Division of Gastroenterology in [place], [place] [address] [place] [address] Prescheduling, Provider Social History Tobacco Use Types Packs/Day Years Used Date Smoking Tobacco: Never Smokeless Tobacco: Never Alcohol Use Standard Drinks/Week Comments No 0 (1 standard drink = 0.6 oz pur e alcohol) [facility] Utilities Answer Date Recorded In the past 12 months has [employer], gas, oil, or water [employer] threatened to shut off services in your [...] your living situation today? I have a [facility] place to live 01/06/2024 Sex and [...] Comprehensive Visit Department of Ophthalmology in [address] [phone] Alan Araujo Jr., M.D. [address] [place] [address] Discharge Disposition: Home or Self Care documented as of this encounter Visit Diagnoses Not on filedocumented in this encounter Care Teams Foot Gatherer Relationship Specialty Start Date End Date Elsewhere, Pcp PCP - General Internal Medicine 01/05/24 documented as of this encounter
--- OUTSIDE RECORDS SUMMARY | 2024-01-20 12:40 | XMS_ITS | Encounter Summary ---
Author Organization [facility] Address [address] [place] [address] Care Team Providers Care Front Desk Representative Name Role Phone Unavailable Primary Care Provider Unavailabl e Encounter Details Date Type Department Care Team (Late st Contact Info) Description 12/13/2023 1:12 PM CDT Anesthesia Event Division of Gastroenterology in [place], [place] [address] [place] [address] Yolis Bonilla [address] [place] [phone] Divina Laura M.B., B.Ch., B.A.O. [address] [place] [phone] Anesthesia Record Procedure Summary Procedure Name Responsible [...] Removal Peripheral IV Existing LDA Placed by: [facility] hospital; Catheter Size: 20 G; Orientation: Right; Location: Wrist; Removal Date: 12/15/23; Removal Time: 1224; Removal Reason: Patient discharged 12/13/23 0455 by 12/15/23 1224 by Sandra Rizvi R.N. Peripheral IV Existing LDA Placed by: [facility]; Catheter Size: 20 G; Orientation: [...] drink = 0.6 oz pur e alcohol) [facility] Utilities Answer Date Recorded In the past 12 months has [employer], [employer], or [employer] threatened to shut off services in your [...] your living situation today? I have a [facility] place to live 12/13/2023 Sex and [...] Room / Location: Division of Gastroenterology in [place], [place] Anesthesia Start: 1312 Anesthesia Stop: 1408 [...] ETT location: oral VL device: glide scope [place] scope blade size: 3 Tube size: 7 [...] Procedure: ERCP Location: Division of Gastroenterology in [place], [place] Pertinent components of the patient's history [...] with patient /legal guardian or through an pharmacy director. Risks/Benefits/Alternatives of Blood transfusion discussed with patient [...] CDT Comprehensive Visit Department of Ophthalmology in [place], [place] [address] [place] [phone] Alan Araujo Jr., M.D. [address] [place] [phone] Discharge Disposition: Home or Self Care documented [...] ETT location: oral VL device: glide scope [place] scope blade size: 3 Tube size: 7 [...] complications Amarjit Smith APRN, CRNA ANESTHESIA ORDE KAIDB documented in this encounter Visit Diagnoses Not [...]
--- OUTSIDE RECORDS SUMMARY | 2024-01-20 12:41 | XMS_ITS | Encounter Summary ---
Author Organization [facility] Address [address] [place] [address] Care Team Providers Care Assistant Professor Of Anthropology Name Role Phone Unavailable Primary Care Provider Unavailabl e Reason for Referral * Outpatient (Routine) - Closed Specialty Diagnoses / Procedures Referred By Contsharlene t Referred To Contact Urology Diagnoses Urinary Tract Infection (UTI)/Bacteriuria NOS Audra Doss, C.N.P. [address] [place] [address] [facility] Region Referral ID Status Reason Start Date Expiration Date Visits Re quested Visits Authorized [id number] Closed 10/17/2023 04/17/2025 1 1 NIA TECHNICIAN Encounter Details Date Type Department Care Team (Late st Contact Info) Description 10/17/2023 [facility] [address] [place] [address] Audra Doss, C.N.P. [address] [place] [phone] Urinary Tract Infection (UTI)/Bacteriuria NOS (Primary Dx) [...] CDT Comprehensive Visit Department of Ophthalmology in [address] [phone] Alan Araujo Jr., M.D. [address] [phone] Discharge Disposition: Home or Self Care Scheduled Referrals Name Type Priority Associated Diagnoses Orde r Schedule Urology Referral Outpatient Referral Routine Urinary Tract Infection (UTI)/Bacteriuria NOS Expected: 10/17/2023 (Approximate), Expires: 01/16/2025 documented as of this encounter Visit Diagnoses Diagnosis Urinary Tract Infection (UTI)/Bacteriuria NOS- Primary documented in this encounter
--- OUTSIDE RECORDS SUMMARY | 2024-01-20 12:41 | XMS_ITS | Encounter Summary ---
Author Organization [facility] Address [address] [place] [address] Care Team Providers Care Flight Attendant/Inflight Supervisor Name Role Phone Unavailable Primary Care Provider Unavailabl e Reason for Visit * Reason Onset Date Comments Pre-visit Intake 11/29/2023 Encounter Details Date Type Department Care Team (Latest Contact Info) Description 11/29/2023 10:00 AM CDT Clinical Communication Virtual Review in [place], [place] 200 [place] [phone] Pre-visit Intake Social History Tobacco Use Types Packs/Day Years Used Date Smoking Tobacco: Never Smokeless Tobacco: Never Alcohol Use Standard Drinks/Week Comments No 0 (1 standard drink = 0.6 oz pur e alcohol) [facility] Utilities Answer Date Recorded In the past 12 months has th e electric, gas, oil, or water [employer] threatened to shut off services in your [...] your living situation today? I have a [facility] place to live 11/29/2023 Sex [...] CDT Comprehensive Visit Department of Ophthalmology in [address] [phone] Alan Araujo Jr., M.D. [address] [place] [phone] Discharge Disposition: Home or Self Care documented as of this encounter Visit Diagnoses Not on filedocumented in this encounter
--- OUTSIDE RECORDS SUMMARY | 2024-01-20 12:41 | XMS_ITS | Encounter Summary ---
Author Organization [facility] Address [address] [place] [address] Care Team Providers Care Shanker Out Name Role Phone Unavailable Primary Care Provider Unavailabl e Encounter Details Date Type Department Care Team (Latest Contact Info) Description 10/02/2023 Clinical Communication Department of Ophthalmology in [address] [phone] Mauri Farrell M.D. [address] [place] [phone] Social History Tobacco Use Types Packs/Day Years [...] Comprehensive Visit Department of Ophthalmology in [address] [phone] Alan Araujo Jr., M.D. [address] [place] [phone] Discharge Disposition: Home or Self Care documented as of this encounter Visit Diagnoses Not on filedocumented in this encounter
--- OUTSIDE RECORDS SUMMARY | 2024-01-20 12:41 | XMS_ITS | Encounter Summary ---
Author Organization [facility] Address [address] [place] [address] Care Team Providers Care Medical Assistant Name Role Phone Unavailable Primary Care Provider Unavailsienna e Reason for Referral * Outpatient (Routine) - Authorized Specialty Diagnoses / Procedures Referred By Contac t Referred To Contact Diagnoses Cystitis Recurrent Procedures Cystoscopy (specific provider) Alejandra Souza P.A.-C. [address] [phone] Alejandra Souza P.A.-C. [address] [place] [phone] Referral ID Status Reason Start Date Expiration Date V isits Requested Visits Authorized [id number] Authorized 10/18/2023 10/17/2024 1 1 GAGE OR LOAN UNDERWRITER * MRI/CAT/PET Scan (Routine) - Authorized Specialty Diagnoses / Procedures Referred By Contac t Referred To Contact Radiology Diagnoses Urinary Tract Infection Site Not Specified Procedures CT Urogram without and with IV Contrast Alejandra Souza P.A.-C. [address] [place] [phone] [facility] Referral ID Status Reason Start Date Expiration Date V isits Requested Visits Authorized [id number] Authorized 10/18/2023 10/17/2024 1 1 GAGE OR LOAN UNDERWRITER Reason for Visit * Appointment Request (Routine) - Closed Specialty Diagnoses / Procedures Referred By Gary elliott Referred To Contact Urology Referral ID Status Reason Start Date Expiration Date Visits Re quested Visits Authorized [id number] Closed 10/17/2023 10/16/2024 1 1 Encounter Details Date Type Department Care Team (Latest Contact Info) Description 10/18/2023 2:30 PM MORTGAGE OR LOAN UNDERWRITER Comprehensive Visit Department of Urology in [address] [phone] Alejandra Souza P.A.-C. [address] [phone] Cystitis Recurrent (Primary Dx); Urinary Tract Infection [...] Alejandra Souza P.A.-C. - 10/18/2023 2:30 PM MORTGAGE OR LOAN UNDERWRITER # 1 recurrent UTI # 2 gross hematuria, presumed associated with UTI # 3 history of urolithiasis Diagnostic consideration: - schedule CT urogram - schedule office cystoscopy/pelvic exam - standing orders for urinalysis with microscopy urine culture to use as needed when you feel you have infection ([facility]) Therapeutic considerations: - excellent hydration minimum 60 [...] daily Macrobid (will consider replacing with methenamine/vitC) GAGE OR LOAN UNDERWRITER documented in this encounter Consult Notes * Alejandra Souza P.A.-C. - 10/18/2023 2:30 PM CST SUBJECTIVE CHIEF COMPLAINT/REASON FOR VISIT Face to Face, uro clinic PEDRITO - limited records (Macrobid 50mg daily) Present UTI - cephalexin (rash) HISTORY OF PRESENT ILLNESS Pleasant 83-year-old presents today direction of her primary care team, [place]. For further discussion of recurrent UTI for [...] needed when you feel you have infection ([facility]) Therapeutic considerations: - excellent hydration minimum [...] CDT Comprehensive Visit Department of Ophthalmology in [place], [place] [address] [place] [phone] Alan Araujo Jr., M.D. [address] [phone] Discharge Disposition: Home or Self Care Scheduled [...] Name Priority Date/Time Associated Diagnosis Comments CYTOLOGY NON-PRICING CONSULTANT Routine 10/18/2023 4:12 PM MORTGAGE OR LOAN UNDERWRITER Cystitis Recurrent BACTERIAL CULTURE, AEROBIC + SUSC, URINE Routine 10/18/2023 4:11 PM MORTGAGE OR LOAN UNDERWRITER Cystitis Recurrent URINALYSIS WITH MICROSCOPIC Routine 10/18/2023 4:11 PM MORTGAGE OR LOAN UNDERWRITER Cystitis Recurrent documented in this encounter Results * Cytology Non-PRICING CONSULTANT (10/18/2023 4:12 PM MORTGAGE OR LOAN UNDERWRITER) 10/20/2023 10:42 AM MORTGAGE OR LOAN UNDERWRITER ECLR Fixative n/a 10/20/2023 10:42 AM MORTGAGE OR LOAN UNDERWRITER ECLR Report electronically signed by Romie Moran M.D. I verify that I have examined all relevant slides/material s for the specimen(s) and rendered or confirmed the diagnosis. 10/20/2023 10:42 AM MORTGAGE OR LOAN UNDERWRITER ECLR Gross Description Received 40 cc of cloudy yellow fluid without fixative. 10/20/2023 10:42 AM MORTGAGE OR LOAN UNDERWRITER ECLR Collection Procedure Straight cath 10/20/2023 10:42 AM MORTGAGE OR LOAN UNDERWRITER ECLR Source A. Urine, straight, catheterized 10/20/2023 10:42 AM MORTGAGE OR LOAN UNDERWRITER ECLR Clinical History recurrent UTIs 03/2024 10:42 AM MORTGAGE OR LOAN UNDERWRITER ECLR Interpretation A. Urine, straight, catheterized (cytospin): Negative for High-Grade Urothelial Carcinoma. Crystals present. 10/20/2023 10:42 AM MORTGAGE OR LOAN UNDERWRITER ECLR Urine 10/18/2023 4:12 PM MORTGAGE OR LOAN UNDERWRITER 10/19/2023 1:48 PM MORTGAGE OR LOAN UNDERWRITER Alejandra Souza P.A.-C. LAB SURG PATH OR DERABLES [facility] [address] [place] [address], [facility] ECLR [address] [place] [phone] * Bacterial Culture, Aerobic + Susceptibility, Urine (10/18/2023 4:11 PM MORTGAGE OR LOAN UNDERWRITER) Urine Culture No growth after 1 day of incubation. 10/19/2023 3:19 PM MORTGAGE OR LOAN UNDERWRITER ECLR Urine (Urine, Straight Catheter) 10/18/2023 4:11 PM MORTGAGE OR LOAN UNDERWRITER 10/18/2023 8:40 PM MORTGAGE OR LOAN UNDERWRITER Comment:Specimen Source Site : Urine Alejandra Souza P.A.-C. LAB MICROBIOLOGY - GENERAL ORDERABLES [facility] [address] [place] [address], [facility] ECLR [facility] in [place] [address] [place] [phone] * (ABNORMAL) Urinalysis, with Microscopic: Urine, Straight Catheter (10/18/2023 4:11 PM MORTGAGE OR LOAN UNDERWRITER) Source Urine, Urine, Straight Catheter 10/18/2023 4:39 PM MORTGAGE OR LOAN UNDERWRITER [facility] Clarity Cloudy(A) Clear 10/18/2023 4:39 PM MORTGAGE OR LOAN UNDERWRITER [facility] Color [place] 10/18/2023 4:39 PM MORTGAGE OR LOAN UNDERWRITER [facility] Comment: ----REFERENCE VALUE---- Colorless Yellow [place] Blood Negative Negative 10/18/2023 4:39 PM MORTGAGE OR LOAN UNDERWRITER [facility] Nitrite Negative Negative 10/18/2023 4:39 PM MORTGAGE OR LOAN UNDERWRITER [facility] Leukocyte Esterase Negative Negative 10/18/2023 4:39 PM MORTGAGE OR LOAN UNDERWRITER [facility] Protein 30(A) mg/dL 10/18/2023 4:39 PM MORTGAGE OR LOAN UNDERWRITER [facility] Comment: ----REFERENCE VALUE---- Negative Trace Glucose 250(A) Negative mg/dL 10/18/2023 4:39 PM MORTGAGE OR LOAN UNDERWRITER [facility] Ketone Trace(A) Negative mg/dL 10/18/2023 4:39 PM MORTGAGE OR LOAN UNDERWRITER [facility] Bilirubin Small(A) Negative 10/18/2023 4:39 PM MORTGAGE OR LOAN UNDERWRITER [facility] pH 5.5 5.0 - 8.0 10/18/2023 4:39 PM MORTGAGE OR LOAN UNDERWRITER [facility] Specific [place] 1.021 1.001 - 1.035 10/18/2023 4:39 PM MORTGAGE OR LOAN UNDERWRITER [facility] Urobilinogen 1.0 0.2 - 1.0 mg/dL 10/18/2023 4:39 PM MORTGAGE OR LOAN UNDERWRITER [facility] White Blood Cells 11-20(A) /hpf 10/18/2023 6:05 PM MORTGAGE OR LOAN UNDERWRITER [facility] Comment: ----REFERENCE VALUE---- Males: 0-3 Females: 0-10 Unknown: 0-10 Red Blood Cells 3-10(A) 0 - 2 /hpf 6:05 PM MORTGAGE OR LOAN UNDERWRITER [facility] Dysmorphic Red Blood Cells <=25 <=25 % 10/18/2023 6:05 PM MORTGAGE OR LOAN UNDERWRITER [facility] Hyaline Casts None Seen /lpf 10/18/2023 6:05 PM MORTGAGE OR LOAN UNDERWRITER [facility] Granular Casts 4-10(A) None Seen /lpf 10/18/2023 6:05 PM MORTGAGE OR LOAN UNDERWRITER [facility] Squamous Cells 4-10 /hpf 10/18/2023 6:05 PM MORTGAGE OR LOAN UNDERWRITER [facility] Urine (Urine, Straight Catheter) 10/18/2023 4:11 PM MORTGAGE OR LOAN UNDERWRITER 10/18/2023 4:25 PM MORTGAGE OR LOAN UNDERWRITER Alejandra Souza P.A.-C. LAB URINE ORDERA BLES [facility] [address] [place] [address], [facility] RDWG [facility] in [place] [address] [place] [phone] documented in this encounter Visit Diagnoses Diagnosis Cystitis Recurrent- Primary Urinary Tract Infection Site Not Specified Dysfunction Voiding documented in this encounter
--- OUTSIDE RECORDS SUMMARY | 2024-01-20 12:41 | XMS_ITS | Clinical Summary ---
Author Organization [facility] Address [place], [place] [address] Care Team Providers Care Oral And Maxillofacial Pathologist Name Role Phone Mayra Hong ICICLE MACHINE OPERATOR Unavailable Tarsha CRAWFORD MD, John Conteh Primary [...] glucose scanning reader (FreeStyle Barbie 14 Day [place]) miscIndications:Type 2 diabetes mellitus without complication, without [...] 1 Brother 2 Daughter Father (Age 72) [place] Mother (Age 69) Sister (Age 40) aneurysm [...] Outcome GA Total Labor Labor/2nd/3rd Weight Sex Type Anes PTL Etta A1 A5 Name Clin Last Filed Vital Signs Vital Sign Reading [...] 05/29/2018, Additional history exists COVID-19 vaccine series (2022- season) 2023 Influenza for age 65+ 04/14/2024 Medical Devices Implanted Type Area Operations Support [employer] Device Identifier Shelf Expiration Date Model / Serial / Lot Tissue Pericardium 0.8x8cm Xenosure - [id number] Implanted:Qty: 1 on 01/19/2023 by Yaya Lewis MD at [facility] Left: Carotid Artery [employer] 10/11/2028 0.8P8 / / [id number] Advance Directives * Full Code (Latest Code Status on File) Date Activated Date Inactivated Comments 01/19/2023 11:24 AM 01/20/2023 4:12 PM Question Answer Comments Code Status Discussion: Unable to Assess Preferences, Provider to review later * Full Code Date Activated Date Inactivated Comments 01/03/2023 9:22 PM 01/05/2023 9:11 PM Question Answer Comments Code Status Discussion: Reviewed Preferences Care Teams Oral And Maxillofacial Pathologist Relationship Specialty Start Date End Date John Willingham II, MD [address] [place] [phone] PCP - General Family Practice 05/03/22 Mayra Hong NP Nurse Practitioner Nurse Practitioner 11/07/14
--- OUTSIDE RECORDS SUMMARY | 2024-01-20 12:41 | XMS_ITS | Encounter Summary ---
Author Organization [facility] Address [address] [place] [address] Care Team Providers Care Catering Truck Driver Name Role Phone Unavailable Primary Care Provider Unavailabl e Reason for Visit * Reason Onset Date Comments Communication 11/03/2023 Encounter Details Date Type Department Care Team (Late st Contact Info) Description 11/03/2023 Clinical Communication Department of Urology in [address] [phone] Alejandra Sozua, P.AHerbert-CHerbert [address] [phone] Communication Social History Tobacco Use [...] CDT Comprehensive Visit Department of Ophthalmology in [address] [address] Alan Araujo Jr., M.D. [address] [place] [phone] Discharge Disposition: Home or Self Care documented as of this encounter Visit Diagnoses Not on filedocumented in this encounter
--- OUTSIDE RECORDS SUMMARY | 2024-01-20 12:41 | XMS_ITS | Encounter Summary ---
Author Organization [facility] Address [address] [place] [address] Care Team Providers Care Seat Mender Name Role Phone Unavailable Primary Care Provider Unavailabl e Encounter Details Date Type Department Care Team (Late st Contact Info) Description 10/19/2023 Orders Only Department of Urology in [address] [address] Alejandra Souza, P.A.-CHerbert [address] [place] [phone] Social History Tobacco Use Types Packs/Day Years [...] CDT Comprehensive Visit Department of Ophthalmology in [address] [phone] Alan Araujo Jr., M.D. [address] [place] [phone] Discharge Disposition: Home or Self Care documented as of this encounter Visit Diagnoses Not on filedocumented in this encounter
--- OUTSIDE RECORDS SUMMARY | 2024-01-20 12:41 | XMS_ITS | Encounter Summary ---
Author Organization [facility] Address [address] [place] [address] Care Team Providers Care Aircraft Engine Assembler Name Role Phone Unavailable Primary Care Provider Unavailabl e Reason for Visit * Reason Onset Date Comments Pre-visit Intake 11/23/2023 OSM 11/23/2023 GI Encounter Details Date Type Department Care Team (Latest Contact Info) Description 11/23/2023 Clinical Communication Division of Gastroenterology in [place], [place] [address] [place] [phone] Provider, Unknown Pre-visit Intake; OSM (GI/) Social History Tobacco Use Types Packs/Day Years Used Date Smoking Tobacco: Never Smokeless Tobacco: Never Alcohol Use Standard Drinks/Week Comments No 0 (1 standard drink = 0.6 oz pur e alcohol) [facility] Utilities Answer Date Recorded In the past 12 months has [facility] [employer], gas, oil, or water [employer] threatened to shut off services in your [...] your living situation today? I have a [facility] place to live 12/13/2023 Sex and [...] Facility and date completed: CT Scan at [facility], [place], [place], Records Needed: All office visits notes from Primary Care, GI, Hematology, Oncology, Genetics, Surgery, ER ER, Admission and Discharge notes and summaries EGD, Colonoscopy, EUS, ERCP reports All Labs, stool studies, and genetic reports Pathology reports for Pancreas fine needle aspiration/fine needle biopsy, brushings Facility and date completed: Labs on November 13, 2023, at [place], [place], Appointment Scheduled: No Do you want a reply once all OSM/Images are uploaded? NO Note: You will still get replies if not all records are obtained. Please reply to [facility] Nurse. documented in this encounter Plan of Treatment Upcoming Encounters Date Type Department Care Team (Latest Contact Info) Description 02/19/2024 9:30 AM CDT Comprehensive Visit Department of Ophthalmology in [address] [phone] Alan Araujo Jr., M.D. [address] [phone] Discharge Disposition: Home or Self Care documented as of this encounter Visit Diagnoses Not on filedocumented in this encounter
--- OUTSIDE RECORDS SUMMARY | 2024-01-20 12:41 | XMS_ITS | Encounter Summary ---
Author Organization [facility] Address [address] [place] [address] Care Team Providers Care Pressure Tester Operator Name Role Phone Unavailable Primary Care Provider Unavailabl e Reason for Referral * MRI/CAT/PET Scan (Routine) - Closed Specialty Diagnoses / Procedures Referred By Gary elliott Referred To Contact Radiology Diagnoses Mass Pancreas Procedures CT Pancreas Angiogram Triple Phase and Pelvis with IV Contrast Calvin Bailey M.D. 200 [place] [address] [facility] Referral ID Status Reason Start Date Expiration Date Visits Re quested Visits Authorized [id number] Closed 11/30/2023 11/29/2024 1 1 Reason for Visit * MRI/CAT/PET Scan (Routine) - Closed Specialty Diagnoses / Procedures Referred By Gary elliott Referred To Contact Radiology Diagnoses Mass Pancreas Procedures CT Pancreas Angiogram Triple Phase and Pelvis with IV Contrast Calvin Bailey M.D. [address] [place] [phone] [facility] Referral ID Status Reason Start Date Expiration Date Visits Re quested Visits Authorized [id number] Closed 11/30/2023 11/29/2024 1 1 Encounter Details Date Type Department Care Team (Latest Contact Info) Description 12/12/2023 11:34 AM CDT - 12/12/2023 11:59 PM CDT Hospital Encounter Department of Radiology, [facility], in [place], [place] 200 [place] [address] Calvin Bailey M.D. 200 [place] [phone] Mass Pancreas Discharge Disposition: Home or Self Care Social History Tobacco Use Types Packs/Day Years Used Date Smoking Tobacco: Never Smokeless Tobacco: Never Alcohol Use Standard Drinks/Week Comments No 0 (1 standard drink = 0.6 oz pur e alcohol) [facility] Utilities Answer Date Recorded In the past 12 months has th e [employer], gas, oil, or water [employer] threatened to shut off services in your [...] your living situation today? I have a [facility] place to live 12/13/2023 Sex and Gender Information Value Date Recorded Sex Assigned at Female 11/29/2023 7:47 PM CDT Gender Identity Female 11/29/2023 7:47 PM CDT Sexual Orientation Straight 11/29/2023 7: 47 PM CDT documented as of this encounter Medications at Time of Discharge Medication Sig Dispensed Refills Start Date End Date A LIPOIC [id number] ORAL Take 1 capsule by mouth daily. [...] glucose scanning reader (FreeStyle Barbie 14 Day [place]) by other route. 08/25/2022 flash glucose scanning [...] tablet Take 20 mg by mouth. 05/29/2018 024 prednisoLONE acetate (PRED FORTE) 1 % ophthalmic [...] CDT Comprehensive Visit Department of Ophthalmology in [address] [place] [phone] Alan Araujo Jr., M.D. [address] [phone] Discharge Disposition: Home or Self [...]
--- OUTSIDE RECORDS SUMMARY | 2024-01-20 12:41 | XMS_ITS | Encounter Summary ---
Author Organization [facility] Address [address] [place] [address] Care Team Providers Care Ambulance Officer Name Role Phone Unavailable Primary Care Provider Unavailabl e Reason for Referral * Outpatient (Routine) - Closed Specialty Diagnoses / Procedures Referred By Contac t Referred To Contact Diagnoses Mass Pancreas Procedures ERCP Calvin Bailey M.D. [address] [place] [phone] [facility] Referral ID Status Reason Start Date Expiration Date Visits Re quested Visits Authorized [id number] Closed 11/30/2023 11/29/2024 1 1 * Outpatient (Routine) - Closed Specialty Diagnoses / Procedures Referred By Contac t Referred To Contact Diagnoses Mass Pancreas Procedures Endoscopic ultrasound (EUS) [place] [address] [facility] Referral ID Status Reason Start Date Expiration Date Visits Re quested Visits Authorized [id number] Closed 11/30/2023 11/29/2024 1 1 * Outpatient (Routine) - Authorized Specialty Diagnoses / Procedures Referred By Contac t Referred To Contact Nutrition Diagnoses Mass Pancreas Calvin Bailey M.D. 200 [place] [address] [facility] Referral ID Status Reason Start Date Expiration Date V isits Requested Visits Authorized [id number] Authorized 11/30/2023 05/31/2025 1 1 * MRI/CAT/PET Scan (Routine) - Closed Specialty Diagnoses / Procedures Referred By Contac t Referred To Contact Radiology Diagnoses Mass Pancreas Procedures CT Pancreas Angiogram Triple Phase and Pelvis with IV Contrast Calvin Bailey M.D. [address] [place] [address] [facility] Referral ID Status Reason Start Date Expiration Date Visits Re quested Visits Authorized [id number] Closed 11/30/2023 11/29/2024 1 1 Encounter Details Date Type Department Care Team (Latest Contact Info) Description 11/30/2023 9:20 AM CDT Telemedicine Division of Gastroenterology in [place], [place] [address] [place] [address] Deyanira García R.N. [address] [place] [phone] Mass Pancreas (Primary Dx) Social History Tobacco Use Types Packs/Day Years Used Date Smoking Tobacco: Never Smokeless Tobacco: Never Alcohol Use Standard Drinks/Week Comments No 0 (1 standard drink = 0.6 oz pur e alcohol) [facility] Utilities Answer Date Recorded In the past 12 months has [employer], gas, oil, or water [employer] threatened to shut off services in your [...] your living situation today? I have a [facility] place to live 11/29/2023 Sex and [...] Pancreas Clinic RN Pre-Visit. Patient contacted [facility] requesting on-campus appointment; pre-visit was scheduled following that request. Completed administrative pre-visit discussion to better understand patient goals and the needed patient itinerary for the requested on-site visit. This pre-visit does not establish a long-term relationship. This interview occurred via real-time audio/video technology by Deyanira García R.N. at [facility] to the patient in the patient's home. The information below is based on review of available medical records and a virtual conversation with the patient and her daughters Radha and Antonia. History of Present Illness Ms. Graham is a 83 y.o. female who is being interviewed for a pre-visit encounter. Our records indicate that Ms. Graham was referred to [facility] for concern of a pancreatic mass, asevidenced [...] shared with the patient: Pancreas Scheduling Team [phone]. documented in this encounter Plan of Treatment Upcoming Encounters Date Type Department Care Team (Latest Contact Info) Description 02/19/2024 9:30 AM CDT Comprehensive Visit Department of Ophthalmology in [address] [phone] Alan Araujo Jr., M.D. [address] [place] [phone] Discharge Disposition: Home or Self Care Scheduled [...] Hemoglobin A1c (12/12/2023 10:43 AM CDT) Pathologist [facility] Hemoglobin A1c, B 7.6(H) 4.0 - [...] CDT Calvin Bailey M.D. LAB BLOOD ADD-ON [facility] [address] [place] [address], [facility] DTL [facility] [address] [place] [address] * (ABNORMAL) Prothrombin Time (PT) (12/12/2023 10:43 AM CDT) Pathologist [facility] Prothrombin Time, P 12.6(H) 9.4 - [...] M.D. LAB BLOOD ADD-ON Performing Organization Address City/[facility]/ZIP Co de Phone Number [facility] [address] [place] [address], [facility] DTL [facility] [address] [place] [address] * Prealbumin (PAB) (12/12/2023 10:43 AM CDT) Pathologist [facility] Prealbumin (PAB), S 22 19 - 38 mg/dL 12/13/2023 10:38 AM CDT [facility] Blood (Blood, Venous) 12/12/2023 10:43 AM CDT 12/13/2023 6:44 AM CDT Calvin Bailey M.D. LAB BLOOD ADD-ON Performing Organization Address [facility] Co de Phone Number [facility] [address] [place] [address] [facility] [address] [place] [address] * Cell-free DNA KRAS 12, 13, 61,146, Blood (12/12/2023 10:43 AM CDT) Pathologist [facility] Result Summary NEGATIVE 01/01/2024 4:12 PM CDT [...] developed and its performance characteristics determined by [facility] in a manner consistent with CLIA requirements. ??This test has not been cleared or approved by the U.S. Food and Drug Administration. Blood (Blood, Venous) 12/12/2023 10:43 AM CDT 12/12/2023 11:47 AM CDT Calvin Bailey M.D. LAB GENETIC TESTI NG [facility] [address] [place] [address], [facility] [address] [place] [address] * (ABNORMAL) Carbohydrate Antigen 19-9 (CA 19-9) (12/12/2023 10:43 AM CDT) Carbohydrate Ag 19-9, S 84(H) <35 U/mL 12/12/2023 3:08 PM CDT [facility] Comment: ----ADDITIONAL INFORMATION---- The testing method is an immunoenzymatic assay manufactured by [employer] and performed on the [employer] DxI 800. ? Values obtained with different assay methods or kits may be different and cannot be used interchangeably. ? Test results cannot be interpreted as absolute evidence for the presence or absence of malignant disease. Blood (Blood, Venous) 12/12/2023 10:43 AM CDT 12/12/2023 2:07 PM CDT Calvin Bailey M.D. LAB BLOOD ADD-ON Performing Organization Address City/[facility]/ZIP Co de Phone Number [facility] [address] [place] [address] [facility] [address] [place] [address] * (ABNORMAL) Bilirubin, Direct (12/12/2023 10:43 AM CDT) Bilirubin, Direct, S 1.4(H) 0.0 - 0.3 mg/dL 12/12/2023 11:42 AM CDT DTL Blood (Blood, Venous) 12/12/2023 10:43 AM CDT 12/12/2023 11:24 AM CDT Calvin Bailey M.D. LAB BLOOD ADD-ON Performing Organization Address City/[facility]/ZIP Co de Phone Number [facility] [address] [place], [place] [address] DTL [facility] [address] [place] [address] * (ABNORMAL) Comprehensive Metabolic Panel (12/12/2023 10:43 [...] Calvin Bailey M.D. LAB BLOOD ADD-ON [facility] [address] [place] [address], [facility] [address] [place] [address] * (ABNORMAL) CBC with Differential, Blood (12/12/2023 [...] CDT Calvin Bailey M.D. LAB BLOOD ADD-ON [facility] [address] [place] [address], [place] DTL [facility] [address] [place] [address] [facility] [address] [place] [address] documented in this encounter Visit Diagnoses Diagnosis Mass Pancreas- Primary Mass Pancreas documented in this encounter
--- OUTSIDE RECORDS SUMMARY | 2024-01-20 12:41 | XMS_ITS | Encounter Summary ---
Author Organization [facility] Address [address] [place] [address] Care Team Providers Care Entry Specialists Name Role Phone Unavailable Primary Care Provider Unavailabl e Reason for Referral * Outpatient (Routine) - Closed Specialty Diagnoses / Procedures Referred By Contact Referred To Contact Gastroenterology and Hepatology Diagnoses Abnormal Findings On Diagnostic Imaging Of Other Abdominal Regions Including Retroperitoneum Audra Doss, C.N.P. [address] [place] [address] [facility] Referral ID Status Reason Start Date Expiration Date Visits Re quested Visits Authorized [id number] Closed 11/16/2023 05/17/2025 1 1 Encounter Details Date Type Department Care Team (Late st Contact Info) Description 11/16/2023 [facility] [address] [place] [address] Audra Doss, C.N.P. [address] [place] [phone] Abnormal Findings On Diagnostic Imaging Of Other Abdominal Regions Including Retroperitoneum (Primary Dx) Social History Tobacco Use Types Packs/Day Years Used Date Smoking Tobacco: Never Smokeless Tobacco: Never Alcohol Use Standard Drinks/Week Comments No 0 (1 standard drink = 0.6 oz pur e alcohol) [facility] Utilities Answer Date Recorded In the past 12 months has th e electric, gas, [employer], or water [employer] threatened to shut off services in your [...] [facility] place to live 12/13/2023 Sex and [...] CDT Comprehensive Visit Department of Ophthalmology in [address] [phone] Alan Araujo Jr., M.D. [address] [place] [phone] Discharge Disposition: Home or Self Care Scheduled [...]
--- OUTSIDE RECORDS SUMMARY | 2024-01-20 12:41 | XMS_ITS | Encounter Summary ---
Author Organization [facility] Address [address] [place] [address] Care Team Providers Care Name Plate Stamper Name Role Phone Unavailable Primary Care Provider Unavailabl e Encounter Details Date Type Department Care Team ([facility] st Contact Info) Description 12/04/2023 Patient Outreach Department of Oncology in [place], [place] [address] [place] [phone] Dariela Palmer, RHerbertN. [address] [place] [phone] Social History Tobacco Use Types Packs/Day Years Used Date Smoking Tobacco: Never Smokeless Tobacco: Never Alcohol Use Standard Drinks/Week Comments No 0 (1 standard drink = 0.6 oz pur e alcohol) [facility] Utilities Answer Date Recorded In the past [...] your living situation today? I have a [facility] place to live 11/29/2023 Sex and [...] CDT Comprehensive Visit Department of Ophthalmology in [address] [phone] Alan Araujo Jr., M.D. [address] [place] [phone] Discharge Disposition: Home or Self Care documented as of this encounter Visit Diagnoses Not on filedocumented in this encounter
[2024-01-20] MEDS: 0.9 % SODIUM CHLORIDE 500 ML 500 ML IV (13:00)
[2024-01-20 13:13] LABS: Basophils Absolute Auto 0.05 K/uL (0.00-0.30); Basophils Percent Auto 0.8 % (0.0-3.0); Eosinophils Absolute Auto 0.23 K/uL (0.00-0.50); Eosinophils Percent Auto 3.5 % (0.0-7.0); Hematocrit 34.2 % (33.0-51.0); Hemoglobin* 10.9 gm/dL (12.0-16.0); Immature Granulocytes Abs Auto 0.03 K/uL (0.00-0.30); Immature Granulocytes Pct Auto 0.5 %; Lymphocytes Percent Auto 16.3 % (20-44); Mean Corpuscular HGB Conc 32 gm/dL (32-36); Mean Corpuscular Hemoglobin 29 pg (26-34); Mean Corpuscular Volume 91 fL (80-100); Monocytes Percent Auto 8.9 % (0.0-11.0); Neutrophils Absolute Auto 4.54 K/uL (1.7-7.0); Platelet Count* 455 K/uL (140-440); RDW Coefficient of Variation % 13.1 % (11.5-15.5); Red Blood Count 3.74 m/uL (4.00-5.20); White Blood Count* 6.49 K/uL (4.50-11.00)
[2024-01-20 13:18] LABS: Slide Review Reflex No
[2024-01-20] MEDS: HYDROmorphone 0.5 mg/0.5 ml inj IVP (13:19)
[2024-01-20 13:34] LABS: Albumin* 3.6 g/dL (3.3-5.0); Chloride* 103 mmol/L (96-114); INR 1.09 (0.91-1.10); Prothrombin Time 14.8 Seconds; Sodium* 137 mmol/L (135-149)
[2024-01-20 13:35] LABS: Partial Thromboplastin Time* 31 Seconds (23-33); Potassium* 4.1 mmol/L (3.6-5.1)
[2024-01-20 13:37] LABS: Amylase* 122 U/L (18-89); Anion Gap 7 mEq/L (7-15); Aspartate Amino Transferase* 39 U/L (12-35); Bilirubin Direct* 0.5 mg/dL (0.0-0.5); Bilirubin Total* 0.8 mg/dL (0.1-1.5); Carbon Dioxide* 27 mmol/L (20-32); Creatinine* 0.5 mg/dL (0.5-1.5); Estimated Glomerular Filt Rate 92 ml/min; Total Protein* 6.8 g/dL (6.0-8.3)
[2024-01-20 13:38] LABS: Alanine Aminotransferase* 27 U/L (4-35); Alkaline Phosphatase* 134 U/L (40-150); Blood Urea Nitrogen* 13 mg/dL (7-30); Calcium* 8.7 mg/dL (8.4-10.6); Glucose* 184 mg/dL (60-115); Lipase* 498 U/L (23-300)
[2024-01-20 13:40] LABS: C Reactive Protein* 1.3 mg/dL (0.5-1.0)
--- NOTE | 2024-01-20 15:23 | P.IMHP_ITS ---
Hospitalist- H&P: HPI History of Present Illness Date Seen: 01/20/24 Chief complaint: Abdominal pain Narrative: ADMISSION HISTORY AND PHYSICAL - HOSPITALIST Chief Complaint: HPI: Lu is an 83 y/o WF with complex medical hx which includes history of stroke (status post tPA and left CEA), type 2 diabetes, bilateral hip replacements, mixed hyperlipidemia, significant hearing loss who presents with postprocedure pancreatitis. Lu presented to our ER in late November with abdominal pain. This was dx as ascending cholangitis. She was hospitalized at [facility] from December 12 through December 14. She underwent ERCP which showed purulence and choledocholithiasis in the common bile duct. A plastic stent was placed in the distal common bile duct. There was suspicion for a malignant stricture and the CA 19-9 supported this. It was elevated at 178. However because she was on Plavix from her 2022 CVA they did not remove stones or complete the sphincterotomy. She received 5 days of antibiotics. She discharged in stable condition. She then returned off of Plavix and underwent an EUS and ERCP on January 04. The EUS revealed a mass of the pancreas head 1.6 x 1.6 cm. The overall impression was likely adenocarcinoma of the distal bile duct verses head of pancreas. FNA for this was obtained and in room cytopathology confirm the presence of an adenocarcinoma. Final cytology however, was nondiagnostic and negative for malignancy. A plastic stent was removed and exchanged with a metal stent. Sphincterotomy was completed. Bile duct swept with sludge were cleared. Unfortunately later that day she developed a post procedure pancreatitis. She was discharged 9 days prior to this admission in stable condition. While she did improve enough to discharge but plateaued once home and in the last 24 hours, worsening abdominal pain. No N/V/D. No fever. They also report black tarry stools at least once in the last week. ER COURSE: Labs, imaging, Dilaudid and fluid bolus. Our ER did discuss this with the [facility] team. They reviewed her history of procedures and recommended admission and pain management at this time. CODE STATUS: DNR/DNI EMERGENCY CONTACT PLAN: Name Rdaha Graham Rel To Pat Daughter Cell I've updated the PFSH, medications and allergies in the Expanse tabs. INVESTIGATIONS: LABS/MICRO/ECG/IMAGING Vital signs stable 127/64. Pulse 76. Respiratory rate 18, unlabored. Pulse ox 95% ON ROOM AIR. STANDING WEIGHT 53 KILOS. Normal white blood cell count 6.49, hemoglobin 10.9, platelet count mildly reactive 455 Normal electrolytes Glucose 184 LFTs are actually quite normal. There is a small bump in her AST of 39. This is markedly better than late November before she went to [facility]. CT AP Impression: 1. Interval placement of a common bile duct stent with new pneumobilia. New stranding about the pancreatic head with adjacent fluid collections along the pancreatic head and 3rd portion of the duodenum, which raises concern for post ERCP pancreatitis with peripancreatic fluid collections. Per discussion with Dr. Engle, findings fit the patient`s clinical exam with elevated serum lipase. 2. Additional chronic/incidental findings as described. REVIEW OF SYSTEMS: 12-point ROS completed with patient and negative unless otherwise stated in HPI or below. PHYSICAL EXAM: CONSTITUTIONAL: Well appearing. Comfortable. Falls asleep during interview. Patient is very [place]. Family supply see entire history. VITAL SIGNS: see record. HEENT: Normocephalic, atraumatic. PERRL, EOMI, conjunctivae pink, no scleral icterus. Ears and nose externally normal. Pharynx normal. NECK: No JVD. No carotid bruit, no thyromegaly, no adenopathy. CHEST: Clear to auscultation bilaterally HEART: S1 and S2 normal. No harsh murmurs. Edema none. ABDOMEN: Tender in the left upper quadrant, and across the low back. No peritoneal signs. MUSCULOSKELETAL: No gross joint deformity or swelling. NEURO: Cranial nerves intact. Grossly intact. No asymmetric findings. SKIN: No rashes, petechiae, concerning changes PSYCHIATRIC: Euthymic. ADMIT TO MEDSURG: FLOOR CARE DVT: SCDs GI: PO intake Time spent: Today I spent 75 minutes seeing the patient, discussing the patient with ER staff, reviewing Expanse and EPIC notes/diagnostics, discussing the care plan with our care time that includes social work, PT/OT, pharmacy, RT, fdc and documenting my impressions and plan in the medical record. [facility] Medical History (Updated 01/20/24 @ 18:25 by Char Franklin MD) UTI (urinary tract infection) ?N39.0 - Urinary tract infection, site not specified (ICD-10) Common bile duct (CBD) stricture ?K83.1 - Obstruction of bile duct (ICD-10) Osteoarthritis (02/13/12) ?M19.90 - Unspecified osteoarthritis, unspecified site (ICD-10) Vaginal atrophy ?N95.2 - Postmenopausal atrophic vaginitis (ICD-10) Left sciatic nerve pain ?M54.32 - Sciatica, left side (ICD-10) History of recurrent UTIs ?Z87.440 - Personal history of urinary (tract) infections (ICD-10) Hx of stroke without residual deficits ?Z86.73 - Personal history of transient ischemic attack (TIA), and cerebral infarction without residual deficits (ICD-10) Cardiac murmur ?R01.1 - Cardiac murmur, unspecified (ICD-10) Orthostatic hypotension ?I95.1 - Orthostatic hypotension (ICD-10) Surgical History History of ERCP ?Z98.890 - Other specified postprocedural states (ICD-10) History of left-sided carotid endarterectomy ?Z98.890 - Other specified postprocedural states (ICD-10) History of kidney removal ?Z90.5 - Acquired absence of kidney (ICD-10) History of hip replacement ?Z96.649 - Presence of unspecified artificial hip joint (ICD-10) Family History Father Coronary artery disease High blood pressure Sister Brain aneurysm Mother Diabetes High blood pressure Brother Diabetes High blood pressure Daughter Thyroid disease Daughter Thyroid cancer Social History Narrative: . 3 children. No formal exercise. Non-smoker. Alcohol rare. No illicit drug use. What is your current living situation?: I presently have a place to live Problems where you live: no known problems Problems where you live details: n/a In the past 12 months, utilities in danger of being shut off: no In past 12 months, lack of transportation kept you from medical appts, meetings, work, or getting things needed for daily living: yes In the past 12 mos, have been you worried that your food would run out before you had money to buy more?: never true In the past 12 mos, the food you bought just didn't last and you didn't have money to buy more?: never true Smoking Status: Never smoker Do you use any of these nicotine containing products: None Second hand tobacco smoke exposure: No How often do you have a drink containing alcohol: never How often do you have six or more drinks on one occasion: Never AUDIT-C Alcohol total score: 0 Non-prescribed substance use: denies use How often does anyone, including family, friends and others, physically hurt you : never How often does anyone, including family, friends and others, insult or talk down to you: never How often does anyone, including family, friends and others, threaten you with harm: never How often does anyone, including family, friends and others, scream or curse at you: never service: No Meds Home Medications and Allergies Home Medications ?Medication ?Instructions ?Recorded ?Confirmed ?Type cholecalciferol (vitamin D3) 25 1,000 unit PO DAILY 01/30/23 11/16/23 History mcg (1,000 unit) capsule alpha lipoic acid 125 mg-biotin 95 cap PO DAILY 11/02/23 11/16/23 History mcg-berberine 250 mg capsule d-mannose 500 mg capsule (AZO See Rx Instructions PO .COMPLEX 11/02/23 11/16/23 History D-Mannose) triamcinolone acetonide 0.5 % 1 applic topical BID PRN 11/02/23 11/16/23 History topical cream vitamin B complex 1 tab PO QDAY 11/02/23 11/16/23 History Allergies Allergy/AdvReac Type Severity Reaction Status Date / Time ampicillin Allergy Intermediate Nausea Verified 11/16/23 10:59 tramadol Allergy Mild itching Verified 11/16/23 10:59 Exam Const: Vital Signs, click to edit/add: Vital Signs - 24 hr 01/20/24 12:10 01/20/24 12:25 01/20/24 13:24 Temperature 98.5 F Pulse Rate 83 Pulse Rate [Right Pulse Oximeter] 85 Respiratory Rate 18 Blood Pressure 133/66 Blood Pressure [Ri ght Upper Arm] 92/61 Pulse Oximetry 98 97 87 L Oxygen Delivery Me thod Room Air Oxygen Flow Rate 01/20/24 13:25 01/20/24 13:30 01/20/24 13:31 Temperature Pulse Rate 82 76 76 Pulse Rate [Right Pulse Oximeter] Respiratory Rate Blood Pressure 127/64 Blood Pressure [Ri ght Upper Arm] Pulse Oximetry 88 98 98 Oxygen Delivery Me thod Nasal Cannula Nasal Cannula Oxygen Flow Rate 1 1 Hospitalist - H&P: Result Labs Labs: Short CBC 01/20/24 Range/Units 13:00 WBC 6.49 (4.50-11.00) K/uL Hgb 10.9 L (12.0-16.0) gm/dL Hct 34.2 (33.0-51.0) % Plt Count 455 H (140-440) K/uL BMP 01/20/24 13:00 Sodium 137 Potassium 4.1 Chloride 103 Carbon Dioxide 27 BUN 13 Creatinine 0.5 Glucose 184 H Calcium 8.7 Liver Function 01/20/24 Range/Units 13:00 Total Bilirubin 0.8 (0.1-1.5) mg/dL Direct Bilirubin 0.5 (0.0-0.5) mg/dL AST 39 H (12-35) U/L ALT 27 (4-35) U/L Alkaline Phosphatase 134 (40-150) U/L Albumin 3.6 (3.3-5.0) g/dL Assessment and Plan Assessment and plan (1) Post-ERCP acute pancreatitis: Problem comment: -lipase elevated. -NPO --> clears -IVF -pain management Status: Acute (2) Primary pancreatic adenocarcinoma: Problem comment: Dx December 2023, confusing hx. imaging, presentation c/w with adeno. Frozen section during procedure, CA 19-9 elevation c/w cancer. But FNA was negative. Likely the desmoplastic nature of the stricture lead to the neg FNA. The working dx is primary adenoca and pallative care was decided upon. Status: Acute (3) Complaint of melena: Problem comment: Bleeding as complication of pancreatic-biliary sphincterotomy is most likely. trend hemoglobin, symptoms. -IV pantoprazole ordered on admission -PO PPI subsequent Status: Acute (4) Common bile duct (CBD) stricture: Problem comment: metalstent in place Status: Acute (5) UTI (urinary tract infection): Problem comment: +nitrite, LE and WBCs. Rocephin 1 gram IV. await C/S. Status: Acute (6) Weight loss: Problem comment: d/t cancer, pain following Status: Acute (7) Type 2 diabetes mellitus: Problem comment: -oral glipizide (will hold for now) -bedside glucose monitoring, SSI Status: Acute (8) Cardiac murmur: Status: Acute (9) Hard of hearing: Status: Acute (10) Hx of stroke without residual deficits: Problem comment: 2022; did well. s/p TPA. s/p Left CEA Status: Acute
[2024-01-20 16:50] LABS: Appearance Urine Clear (Clear); Bilirubin Urine Negative (Negative); Blood Urine Trace-intact (Negative); Color Urine Yellow (Yellow); Glucose Urine Negative (Negative); Ketones Urine Negative (Negative); Leukocyte Esterase Urine 1+ (Negative); Nitrite Urine Positive (Negative); Protein Urine 1+ (Negative); Urobilinogen Urine 0.2 (0.2-1.0); pH Urine 7.5 (5.0-8.5)
[2024-01-20] MEDS: 5 % DEXTROSE/0.9% SOD CHLORIDE 1,000 ML 75 ML IV (17:01)
[2024-01-20] MEDS: PANTOPRAZOLE SODIUM 40 MG INJ IVP (17:01)
[2024-01-20] MEDS: ACETAMINOPHEN 325 MG TABLET 975 MG PO ×2 (17:01→22:17)
[2024-01-20 17:17] LABS: Amorphous Sediment Urine Few; Bacteria Urine Moderate; RBC Urine 0-2 (0-2); Squamous Epithelial Cell Urine Many (None-Few)
[2024-01-20] MEDS: cefTRIAXone 1 GM in 0.9 % SODIUM CHLORIDE Mini-bag 100 ML IVPB (19:36)
--- NOTE | 2024-01-20 19:48 | PC.NURSE ---
Patient new admit from the ED this shift. Denies pain. BIG SANDY with no hearing aides. NPO on D5NS @75/HR. Family at bedside. Skin intact with no open areas. Urine sample collected for UA/UC. No BM this shift.
[2024-01-21] VITALS (8 sets, daily range): BP systolic 140–150; BP diastolic 54–79; PULSE 70–85; RESP 14–18; TEMP 36.3–36.9; O2SAT 96–99
[2024-01-21] MEDS: ACETAMINOPHEN 325 MG TABLET 975 MG PO ×3 (04:20→21:30)
[2024-01-21] MEDS: 5 % DEXTROSE/0.9% SOD CHLORIDE 1,000 ML 75 ML IV ×2 (05:55→20:52)
[2024-01-21 06:15] LABS: HCO3 VBG 25 mmol/L (21-28); PCO2 VBG 39 mmHG (40-50); PO2 VBG 49.5 mmHG (25-47); pH VBG 7.417 (7.32-7.43)
[2024-01-21 06:17] LABS: Hematocrit 29.2 % (33.0-51.0); Hemoglobin* 9.3 gm/dL (12.0-16.0); Mean Corpuscular HGB Conc 32 gm/dL (32-36); Mean Corpuscular Hemoglobin 29 pg (26-34); Mean Corpuscular Volume 92 fL (80-100); Platelet Count* 363 K/uL (140-440); Red Blood Count 3.16 m/uL (4.00-5.20); White Blood Count* 6.61 K/uL (4.50-11.00)
[2024-01-21 06:19] LABS: Slide Review Reflex No
--- NOTE | 2024-01-21 06:33 | PC.NURSE ---
Expanse Downtime occurred from approximately [id number] on 01/21/24.
[2024-01-21 06:34] LABS: Albumin* 2.8 g/dL (3.3-5.0); Chloride* 110 mmol/L (96-114)
[2024-01-21 06:35] LABS: Potassium* 3.7 mmol/L (3.6-5.1); Sodium* 137 mmol/L (135-149)
[2024-01-21 06:37] LABS: Amylase* 103 U/L (18-89); Anion Gap 3 mEq/L (7-15); Aspartate Amino Transferase* 30 U/L (12-35); Bilirubin Direct* 0.4 mg/dL (0.0-0.5); Bilirubin Total* 0.5 mg/dL (0.1-1.5); Blood Urea Nitrogen* 10 mg/dL (7-30); Carbon Dioxide* 24 mmol/L (20-32); Creatinine* 0.5 mg/dL (0.5-1.5); Est. Creatinine Clearance* 31.04; Estimated Glomerular Filt Rate 92 ml/min; Total Protein* 5.6 g/dL (6.0-8.3)
[2024-01-21 06:38] LABS: Alanine Aminotransferase* 21 U/L (4-35); Alkaline Phosphatase* 104 U/L (40-150); Calcium* 7.9 mg/dL (8.4-10.6); Glucose* 150 mg/dL (60-115); Lipase* 377 U/L (23-300); Phosphorus* 3.4 mg/dL (2.5-4.5)
[2024-01-21 06:40] LABS: C Reactive Protein* 0.9 mg/dL (0.5-1.0)
--- NOTE | 2024-01-21 06:44 | PC.NURSE ---
End of shift note [id number]: Pt noted to be alert & oriented x 4. IV to L wrist patent with D5NS running at 75 mL/hr per order. Blood glucose of 118 at HS. Pt noted to have Dexcom in place to RUE. She has been denying pain when asked throughout the shift with scheduled Tylenol administered per current order in place. VSS and pt has been afebrile with no N/V. Diet order currently in place specifies sips of water and ice chips only which pt is aware of. Pt asked, Can I use the urinal? overnight when needing to use the bathroom. Pt very INUPIAT at baseline. She has been continent of bladder with no BM noted this shift. Pt able to reposition independently in bed and transfers/ambulates with SBA/assist of 1 using gait belt and IV pole. ?
[2024-01-21] MEDS: INSULIN ASPART 100 UNIT/ML SUBCUT ×4 (09:42→21:29)
--- NOTE | 2024-01-21 17:07 | P.IMPN_ITS ---
Progress Note: A&P Assessment and plan (1) Post-ERCP acute pancreatitis: Problem details: -lipase has not changed much from yesterday, but she is no longer in pain. Advanced diet as tolerated. Continue IV fluids for now. -pain management Status: Acute (2) Primary pancreatic adenocarcinoma: Problem details: Dx December 2023, confusing hx. imaging, presentation c/w with adeno. Frozen section during procedure, CA 19-9 elevation c/w cancer. But FNA was negative. Likely the desmoplastic nature of the stricture lead to the neg FNA. The working dx is primary adenoca and pallative care was decided upon. Status: Acute (3) Complaint of melena: Problem details: Bleeding as complication of pancreatic-biliary sphincterotomy is most likely. trend hemoglobin, symptoms. -IV pantoprazole ordered on admission -PO PPI subsequent Status: Acute (4) Common bile duct (CBD) stricture: Problem details: metal stent in place Status: Acute (5) UTI (urinary tract infection): Problem details: +nitrite, LE and WBCs. Rocephin 1 gram IV. await C/S (G- delvin so far) Status: Acute (6) Weight loss: Problem details: d/t cancer, pain following Status: Acute (7) Type 2 diabetes mellitus: Problem details: -oral glipizide (will hold for now) -bedside glucose monitoring, SSI, glucoses within inpatient goal Status: Chronic (8) Cardiac murmur: Problem details: not noted on todays exam Status: Acute (9) Hx of stroke without residual deficits: Problem details: 2022; did well. s/p TPA. s/p Left CEA Status: Chronic (10) Hyperlipidemia: Status: Chronic (11) Hard of hearing: Status: Chronic (12) Anemia: Problem details: - Suspect acute blood loss due to GI bleeding, although no BRBPR or melena noted overnight. Hgb trending downward, no indication for transfusion yet. Recheck in the morning. Family has mostly wanted palliative Care Status: Acute Subjective Time Seen by Provider: 10:00 Date Seen: 01/21/24 Interval history: Charla does not recall Kothari talking with her about pancreatic cancer, hospice or comfort cares. She says she does not know what is wrong with her and no one can diagnose it. She states her abdominal pain is better today. She has tolerated sips of clears overnight. She would like to go home. I am not aware of any bloody or black tarry stools that she had overnight. Exam Narrative: Exam Narrative: General: No acute distress. Very hard of hearing, somewhat confused about some things. Awake, alert, oriented x3. No pallor. No jaundice. Oropharynx: Clear. Mucous membranes moist. Cardiovascular: Regular rate and rhythm. No murmurs, gallops, or rubs. Respiratory: Clear to auscultation bilaterally. No wheezes or crackles. Abdomen: Bowel sounds present. Soft, nondistended, nontender. Extremities: No pedal edema. Const: Vital Signs, click to edit/add: Vital Signs - 24 hr 01/20/24 19:31 01/20/24 22:36 01/20/24 22:58 Temperature 98.2 F 98.0 F Pulse Rate 76 Pulse Rate [Right Pulse Oximeter] 77 73 Respiratory Rate 16 16 Blood Pressure [Le ft Arm] 141/68 H 119/66 Pulse Oximetry 96 97 [facility] Room Air 01/20/24 23:00 01/21/24 03:00 01/21/24 07:00 Temperature 97.4 F L Pulse Rate 71 Pulse Rate [Right Pulse Oximeter] 73 84 Respiratory Rate 16 16 Blood Pressure [Le ft Arm] 140/64 H Pulse Oximetry 97 [facility] 01/21/24 09:15 01/21/24 09:15 01/21/24 12:13 Temperature 97.8 F 97.9 F Pulse Rate Pulse Rate [Right Pulse Oximeter] 80 80 78 Respiratory Rate 16 16 18 Blood Pressure [Le ft Arm] 142/54 H 149/67 H Pulse Oximetry 98 97 [facility] Room Air 01/21/24 15:48 Temperature 97.7 F Pulse Rate Pulse Rate [Right Pulse Oximeter] 70 Respiratory Rate 14 Blood Pressure [Le ft Arm] 150/79 H Pulse Oximetry 99 [facility] Labs Labs: Laboratory Results - last 24 hr 01/20/24 01/21/24 16:39 05:58 WBC 6.61 RBC 3.16 L Hgb 9.3 L Hct 29.2 L MCV 92 MCH 29 MCHC 32 Plt Count 363 VBG pH 7.417 VBG pCO2 39 L VBG pO2 49.5 H VBG HCO3 25 Sodium 137 Potassium 3.7 Chloride 110 Carbon Dioxide 24 Anion Gap 3 L BUN 10 Creatinine 0.5 Estimated Creat Clear 31.04 Estimated GFR 92 Glucose 150 H Calcium 7.9 L Phosphorus 3.4 Total Bilirubin 0.5 Direct Bilirubin 0.4 AST 30 ALT 21 Alkaline Phosphatase 104 C-Reactive Protein 0.9 Total Protein 5.6 L Albumin 2.8 L Amylase 103 H Lipase 377 H Urine Color Yellow Urine Appearance Clear Urine pH 7.5 Ur Specific [place] 1.020 Urine Protein 1+ A Urine Glucose (UA) Negative Urine Ketones Negative Urine Blood Trace-intact A Urine Nitrite Positive A Urine Bilirubin Negative Urine Urobilinogen 0.2 Ur Leukocyte Esterase 1+ A Urine RBC 0-2 Urine WBC 10-25 A Ur Squamous Epith Cells Many A Amorphous Sediment Few A Urine Bacteria Moderate A
[2024-01-21] MEDS: cefTRIAXone 1 GM in 0.9 % SODIUM CHLORIDE Mini-bag 100 ML IVPB (18:02)
--- NOTE | 2024-01-21 19:33 | PC.NURSE ---
Patient alert and oriented to self with confusion. Diet advanced to full liquids. Tolerated full liquid diet at dinner well. No nausea reported. Patient complains of minimal abdominal pain that comes and goes per patient. No BM this shift. Other vital signs stable.
--- NOTE | 2024-01-22 00:31 | PC.NURSE ---
Evening ADRIANE reported pt had one small formed BM last evening though pt flushed stool before nurse could assess or send to lab for testing. Staff reminded pt to allow staff to assess stool in collection device.
[2024-01-22] MEDS: ONDANSETRON ODT 4 MG TAB PO (02:40)
[2024-01-22 02:45] VITALS: BP 145/70; PULSE 82; RESP 18; TEMP 36.4; O2SAT 97
[2024-01-22 02:48] LABS: Fecal Occult Blood* Positive (Negative)
[2024-01-22] MEDS: ACETAMINOPHEN 325 MG TABLET 975 MG PO ×4 (04:13→22:01)
--- NOTE | 2024-01-22 06:50 | PC.NURSE ---
End of shift note [id number]: Bed alarm utilized as pt does not use call light when needing to go to the bathroom despite repeated staff reminders. VSS and pt has been afebrile. Pt denying pain when asked. She transfers with SBA using gait belt and IV pole. VSS. PRN Zofran given for pt c/o nausea after toileting. No vomiting noted this shift. Pt did have one moderate soft BM with positive fecal occult blood after sending sample to lab per order. Pt has been continent of bowel and bladder throughout the shift. IV to R forearm patent with D5NS running at 75 mL/hr per order. Pt refused SCDs this shift. ?
[2024-01-22 07:00] VITALS: BP 147/70; PULSE 76; PULSE 86; RESP 16; TEMP 36.6; O2SAT 98
[2024-01-22] MEDS: INSULIN ASPART 100 UNIT/ML SUBCUT ×2 (09:12→13:11)
[2024-01-22] MEDS: 5 % DEXTROSE/0.9% SOD CHLORIDE 1,000 ML 75 ML IV (09:46)
[2024-01-22] MEDS: SODIUM CHLORIDE 0.9 % (FLUSH) 10 ML SYRINGE 5 ML IVF ×2 (09:47→20:34)
[2024-01-22 11:00] VITALS: BP 136/57; PULSE 86; RESP 18; TEMP 36.6; O2SAT 98
--- NOTE | 2024-01-22 12:51 | PM.IMPN1 ---
Progress Note: A&P Assessment and plan (1) Post-ERCP acute pancreatitis: Status: Acute (2) Primary pancreatic adenocarcinoma: Problem details: Dx December 2023, confusing hx. imaging, presentation c/w with adeno. Frozen section during procedure, CA 19-9 elevation c/w cancer. But FNA was negative. Likely the desmoplastic nature of the stricture lead to the neg FNA. The working dx is primary adenoca and pallative care was decided upon. Status: Acute (3) Complaint of melena: Problem details: Bleeding as complication of pancreatic-biliary sphincterotomy is most likely. Status: Acute (4) Common bile duct (CBD) stricture: Problem details: metal stent in place Status: Acute (5) UTI (urinary tract infection): Problem details: +nitrite, LE and WBCs. Rocephin 1 gram IV. await C/S (G- delvin so far) Status: Acute (6) Weight loss: Problem details: d/t cancer, pain Status: Acute (7) Type 2 diabetes mellitus: Problem details: -bedside glucose monitoring, SSI, glucoses within inpatient goal Status: Chronic (8) Cardiac murmur: Problem details: not noted on todays exam Status: Acute (9) Hx of stroke without residual deficits: Problem details: 2022; did well. s/p TPA. s/p Left CEA Status: Chronic (10) Hyperlipidemia: Status: Chronic (11) Hard of hearing: Status: Chronic (12) Anemia: Problem details: - Suspect acute blood loss due to GI bleeding, likely post sphincterotomy. Patient and family desire palliative Care Status: Acute Plan 83-year-old female with probable pancreatic cancer causing fatigue, weight loss, abdominal pain and nausea. She also has recurrent and persistent urinary tract infection, Gram-negative rods on urine culture so far. GI bleeding, possibly secondary to recent sphincterotomy. A discussion with the patient and her family today they would like to take her home with hospice tomorrow. We are waiting the urine culture results and will continue IV ceftriaxone for now. Otherwise have changed orders to make her comfort cares as per the patient and family wishes. She would like no further labs, studies or investigations, no invasive interventions. Time Spent With Patient Total time spent: Today I spent 40 minutes rounding on the patient. Greater than 50% included discussing care with the daughters, granddaughter, and the patient, the team, reviewing data, updating and managing the care plan. Subjective Time Seen by Provider: 09:00 Date Seen: 01/22/24 Interval history: Lu's daughters and granddaughter were in the room with her. She is feeling better and wants to go home and eat whatever she wants. Her family has not kept her completely in the loop about medical care for fear of angering or scaring her. With her daughters and granddaughter outside the room and we reviewed some information that I had from [facility] from a recent discharge summary, date of discharge 01/14/2024. We reviewed the different studies that she has had and how she has gotten to be in our hospital. Lu is an 83-year-old female with frequent and persistent UTIs, history of stroke, type 2 diabetes mellitus who had seen Audra Doss in October for concerns of fatigue and weight loss. CT scan revealed biliary tree and pancreatic abnormalities with concern for possible occult pancreatic adenocarcinoma she had further workup and was referred to [facility] where she had 2 ERCPs to try to obtain biopsies, but the biopsies were inconclusive. CA 19 9 was elevated at 178. There was suspicion for malignant stricture on ERCP. Also with each ERCP she has gotten a pancreatitis. She was admitted to our hospital with concern of post ERCP pancreatitis, UTI, and concern of melena. Her fecal occult was positive early this morning. Her family stated that if Lu was clearly diagnosed with cancer, she and they would just want her to be comfortable and not want any further workup. We spoke about the difficulties and complications that she has had with the workup so far in the noted that she would not want any surgery or invasive testing such as colonoscopy. They asked about something like an ultrasound for further workup, but we noted that no matter with the results, it would likely not be helpful because she would not want any invasive treatments and she is not a candidate for a Whipple or chemotherapy. At this point they noted that they really just want her to be comfortable and were comfortable with the idea of taking her home with hospice. They agreed that I could talk with Lu about all of this to get her opinion. Her daughters and granddaughter came in the room with me and I spoke with Lu. She demonstrated understanding of her situation and told me that she did not want any further testing or treatments and really just wanted to go home. She thought that her daughters would not want hospice, but when her daughters told her that they actually did walked her in hospice for the support and help, she was agreeable with all of that and happy to be looking at going home. Her daughters would really like her to have the right antibiotic yet for UTI, recognizing that she would be on hospice and noting that when she has a UTI it is very uncomfortable for her. They would like to go with [facility]. I communicated this to our licensed social worker. They were all comfortable with Lu starting comfort cares today and being able to eat whatever she wanted. I have entered those orders. They also agreed that they wanted no further workup for pancreatic masses, malignancy, or GI bleeding. Exam Narrative: Exam Narrative: General: No acute distress. Very hard of hearing. Awake, alert, oriented x3. Oriented to situation and able to meaningfully participate in decision making. No pallor. No jaundice. Oropharynx: Clear. Mucous membranes moist. Cardiovascular: Regular rate and rhythm. No murmurs, gallops, or rubs. Respiratory: Clear to auscultation bilaterally. No wheezes or crackles. Abdomen: Bowel sounds present. Soft, nondistended, mildly tender in the epigastrium. Const: Vital Signs, click to edit/add: Vital Signs - 24 hr 01/21/24 15:00 01/21/24 15:00 01/21/24 15:48 Temperature 97.7 F Pulse Rate 71 Pulse Rate [Right Pulse Oximeter] 70 70 Respiratory Rate 14 14 Blood Pressure [Le ft Arm] 150/79 H Pulse Oximetry 99 Oxygen Delivery Me thod Room Air 01/21/24 19:00 01/21/24 23:00 01/21/24 23:00 Temperature 98.4 F 97.7 F Pulse Rate 81 Pulse Rate [Right Pulse Oximeter] 79 85 Respiratory Rate 16 16 Blood Pressure [Le ft Arm] 145/68 H 150/75 H Pulse Oximetry 96 97 Oxygen Delivery Me thod Room Air Room Air 01/21/24 23:00 01/22/24 02:45 01/22/24 07:00 Temperature 97.5 F L 97.9 F Pulse Rate Pulse Rate [Right Pulse Oximeter] 85 82 76 Respiratory Rate 16 18 16 Blood Pressure [Le ft Arm] 145/70 H 147/70 H Pulse Oximetry 97 98 Oxygen Delivery Me thod Room Air Room Air 01/22/24 07:00 01/22/24 11:00 Temperature 97.8 F Pulse Rate Pulse Rate [Right Pulse Oximeter] 76 86 Respiratory Rate 16 18 Blood Pressure [Le ft Arm] 136/57 L Pulse Oximetry 98 Oxygen Delivery Me thod Room Air Labs Labs: Laboratory Results - last 24 hr 01/22/24 02:30 Stool Occult Blood Positive A
[2024-01-22] MEDS: polyethylene glycoL 3350 17 GM PACK PO (13:14)
[2024-01-22] MEDS: SENNOSIDES/DOCUSATE TABLET 1 TAB PO ×2 (13:15→20:34)
[2024-01-22 15:00] VITALS: BP 141/98; PULSE 80; RESP 18; TEMP 36.8; O2SAT 98
--- NOTE | 2024-01-22 15:06 | PC.SOCIAL ---
Addendum entered by IVANIA Louie 01/22/24 15:49: Discharge planning: Hospice intake time has been adjusted to 4pm on Monday per the families request. Update given to charge nurse on duty. Social work to follow-up as needed. Original Note: Discharge planning: ordnance equipment worker met with pt and her daughters today after the provider on duty had discussed hospice with the family. The family would like to go with [facility] to be set-up at the pt's home in [place], [place]. ordnance equipment worker contacted [facility] who states they are able to open the pt tomorrow at her home at 2pm. ordnance equipment worker sent all the need/requested information to Angelina #[phone] at [facility] via fax #[phone]. ordnance equipment worker also let Angelina know that the family would like a bedside commode and briefs/pads/wipes for the pt. Angelina said they can most certainly accommodate these durable medical equipment/supplies for the pt. Angelina will reach out to pt's daughter, Hazel, to coordinate delivery times for the durable medical equipment/supplies. Pt's daughters said they can transport the pt home tomorrow at discharge. ordnance equipment worker updated the provider and charge nurse on duty. Social work to follow-up as needed.
[2024-01-22] MEDS: cefTRIAXone 1 GM in 0.9 % SODIUM CHLORIDE Mini-bag 100 ML IVPB (18:13)
--- NOTE | 2024-01-22 19:24 | PC.NURSE ---
End of Shift: Patient pleasant and cooperative. VSS, afebrile. SBA with gait belt to bathroom. Tolerating full liquid diet. Patient reported pain in abdomen this morning, managed with scheduled tylenol, after tylenol patient has not reported pain the rest of this shift.
[2024-01-22 19:27] VITALS: BP 149/70; PULSE 85; RESP 16; TEMP 36.7; O2SAT 96
[2024-01-22 23:00] VITALS: BP 153/79; PULSE 84; RESP 16; TEMP 36.3; O2SAT 97
[2024-01-23 02:53] VITALS: BP 157/76; PULSE 90; RESP 16; TEMP 36.8; O2SAT 95
[2024-01-23] MEDS: ACETAMINOPHEN 325 MG TABLET 975 MG PO ×2 (04:19→10:21)
--- NOTE | 2024-01-23 06:38 | PC.NURSE ---
End of shift note [id number]: Pt transfers with SBA using gait belt. She has been denying pain when asked. VSS and pt has been afebrile throughout the shift. IV to R forearm patent and SL. Pt has been continent of bladder throughout the shift. Pt tolerating regular diet as she had Cheerios for HS snack with no N/V noted. Blood glucose of 111 at HS. Pt is no longer on telemetry as this was previously discontinued by MD Montero. Pt has been using call light appropriately throughout the shift. UC results returned noting E. coli, provider to review this AM.
[2024-01-23 07:00] VITALS: BP 112/70; PULSE 89; RESP 18; TEMP 36.3; O2SAT 96
--- NOTE | 2024-01-23 08:13 | PC.SOCIAL ---
Discharge planning: Intake time for Hospice has been changed back to 2pm. Social work to follow-up as needed.
[2024-01-23] MEDS: SENNOSIDES/DOCUSATE TABLET 1 TAB PO (09:14)
[2024-01-23] MEDS: polyethylene glycoL 3350 17 GM PACK PO (09:15)
[2024-01-23] MEDS: SODIUM CHLORIDE 0.9 % (FLUSH) 10 ML SYRINGE 5 ML IVF (09:20)
--- NOTE | 2024-01-23 10:04 | PM.DS1 ---
DS: Providers Provider Time Seen by Provider: 08:54 Date Seen: 01/23/24 Date of admission: 01/22/24 14:53 Primary care physician: Audra Doss, ORTHOPAEDIC NURSE, SLAB DEPILER OPERATOR Admitting Clinician: Char Franklin MD Consults: 01/20/24 15:51 Consult to Occupational Therapy [CONS] Routine Comment: Reason(s) for OT Consult:: Evaluate and Treat Any Restrictions?:: No Restrictions Consult to Physical Therapy [CONS] Routine Comment: Reason(s) for PT Consult:: Evaluate and Treat Any Restrictions?:: No Restrictions Consult to Rocket Engine Mechanic [CONS] Routine Comment: Reason for Consult:: Social Service Consult Attending Physician on discharge: Latia Montero MD Date of Discharge: 01/23/24 DS: Diagnosis Discharge Diagnosis (1) Anemia: Status: Acute Problem details: - Suspect acute blood loss due to GI bleeding, likely post sphincterotomy. Patient and family desire palliative Care (2) Post-ERCP acute pancreatitis: Status: Acute (3) Primary pancreatic adenocarcinoma: Status: Acute Problem details: Dx December 2023, confusing hx. imaging, presentation c/w with adeno. Frozen section during procedure, CA 19-9 elevation c/w cancer. But FNA was negative. Likely the desmoplastic nature of the stricture lead to the neg FNA. The working dx is primary adenoca and pallative care was decided upon. (4) Complaint of melena: Status: Acute Problem details: Bleeding as complication of pancreatic-biliary sphincterotomy is most likely. (5) Common bile duct (CBD) stricture: Status: Acute Problem details: metal stent in place (6) UTI (urinary tract infection): Status: Acute Problem details: +nitrite, LE and WBCs. Rocephin 1 gram IV daily in hospital. - Multi drug resistent E coli: Will give her 3 days of SS augmentin to go home with. Specimen: [id number] COMP Collected: 01/20/24-1638 Received: 01/20/24-1644 Source: Urine CC Sp Descrip: Sub Dr: Char Franklin M.D. Other Dr: Procedure Result Site Urine Culture* Final ML Organism 1 Escherichia coli Ur [place] Count 40,000 - 50,000 CFU/ml > 100,000 COL/ML MIXED GRAM POSITIVE CORTNEY ISOLATED NO FURTHER WORKUP E coli MICHELLE RX --------- --- Ampicillin >=32 R Ampicillin/Sulbactam 4 S Cefazolin >=64 R Cefepime <=1 R Cefoxitin <=4 S Ceftazidime 2 R Ceftriaxone 32 R Ciprofloxacin >=4 R Ertapenem <=0.5 S Gentamicin <=1 S Imipenem <=0.25 S Levofloxacin >=8 R Nitrofurantoin <=16 S Tobramycin <=1 S Trimethoprim/Sulfamethoxazole <=20 S Piperacillin/Tazobactam <=4 S DS: Summary Hospital Course Hospital Course: Lu is an 83-year-old female with frequent and persistent UTIs, history of stroke, type 2 diabetes mellitus who had seen Audra Doss in October for concerns of fatigue and weight loss. CT scan revealed biliary tree and pancreatic abnormalities with concern for possible occult pancreatic adenocarcinoma she had further workup and was referred to [facility] where she had 2 ERCPs to try to obtain biopsies, but the biopsies were inconclusive. CA 19 9 was elevated at 178. There was suspicion for malignant stricture on ERCP. Also with each ERCP she has gotten a pancreatitis. She was admitted to our hospital with concern of post ERCP pancreatitis, UTI, and concern of melena. Her fecal occult was positive early this morning. Her family stated that if Lu was clearly diagnosed with cancer, she and they would just want her to be comfortable and not want any further workup. We spoke about the difficulties and complications that she has had with the workup so far in the noted that she would not want any surgery or invasive testing such as colonoscopy. They asked about something like an ultrasound for further workup, but we noted that no matter with the results, it would likely not be helpful because she would not want any invasive treatments and she is not a candidate for a Whipple or chemotherapy. At this point they noted that they really just want her to be comfortable and were comfortable with the idea of taking her home with hospice. They agreed that I could talk with Lu about all of this to get her opinion. Her daughters and granddaughter came in the room with me and I spoke with Lu. She demonstrated understanding of her situation and told me that she did not want any further testing or treatments and really just wanted to go home. She thought that her daughters would not want hospice, but when her daughters told her that they actually did walked her in hospice for the support and help, she was agreeable with all of that and happy to be looking at going home. Her daughters would really like her to have the right antibiotic yet for UTI, recognizing that she would be on hospice and noting that when she has a UTI it is very uncomfortable for her. [facility] can admit her today. Multidrug resistant E coli grew out on urine culture, will use Augmentin single strength for 3 days, which she can take at home. She is discharged home today with hospice. Time Spent with Patient Time attestation: Total time spent providing and/or coordinating discharge services: Exam Narrative: Exam Narrative: General: No acute distress. Very hard of hearing. Awake, alert, oriented. No pallor. No jaundice. Oropharynx: Clear. Mucous membranes moist. Cardiovascular: Regular rate and rhythm. No murmurs, gallops, or rubs. Respiratory: Clear to auscultation bilaterally. No wheezes or crackles. Abdomen: Bowel sounds present. Soft, nondistended, mildly tender in the epigastrium. Const: Vital Signs, click to edit/add: Vital Signs - 24 hr 01/22/24 11:00 01/22/24 15:00 01/22/24 15:00 Temperature 97.8 F 98.3 F Pulse Rate [Right Pulse Oximeter] 86 80 80 Respiratory Rate 18 18 18 Blood Pressure [Le ft Arm] 136/57 L 141/98 H Pulse Oximetry 98 98 Oxygen Delivery Me thod Room Air Room Air 01/22/24 19:27 01/22/24 23:00 01/22/24 23:00 Temperature 98.1 F 97.4 F L Pulse Rate [Right Pulse Oximeter] 85 84 84 Respiratory Rate 16 16 16 Blood Pressure [Le ft Arm] 149/70 H 153/79 H Pulse Oximetry 96 97 Oxygen Delivery Ms thod Room Air Room Air 01/23/24 02:53 Temperature 98.2 F Pulse Rate [Right Pulse Oximeter] 90 Respiratory Rate 16 Blood Pressure [Le ft Arm] 157/76 H Pulse Oximetry 95 Oxygen Delivery Ms thod Room Air DS: Data Data Completed and Pending Completed studies during hospitalization: Multidrug resistant E coli grew out on urine culture, please see culture results above. 01/20/2024 EKG: Normal sinus rhythm 77 beats per minute, normal EKG. Ordering Physician: Mauri Engle M.D. Date of Service: 01/20/24 Procedure(s): CT abdomen pelvis wo con Accession Number(s): [id number] cc: Audra PROCTOR CNP; Mauri Engle M.D.~ For Patients: As a result of the Cures Act, medical imaging exams and procedure reports are released immediately into your electronic medical record. You may view this report before your referring provider. If you have questions, please contact your health care provider. Indication: Abdominal pain. Technique: CT of the abdomen and pelvis was performed without contrast. Comparison: 12/12/2023. Findings: Visualized lung bases: Linear scarring versus subsegmental atelectasis in the visualized lung bases. Liver: New pneumobilia predominantly within the left hepatic lobe. Interval placement of a common bile duct stent. Gallbladder is not visualized. Pancreas: Mild stranding in the region of the pancreatic head, more pronounced than prior. There is a new bilobed fluid attenuation structure inferior to the pancreatic head measuring 2.9 x 1.5 cm in axial dimensions (2/59). Additionally, there is a new fluid collection inferior to the 3rd portion of the duodenum measuring 5.1 x 1.9 cm in axial dimensions (2/68). Spleen: Unremarkable for unenhanced technique. Adrenals: Unremarkable for unenhanced technique. Kidneys: Left lower pole renal cortical scarring. No hydronephrosis or nephrolithiasis. Aorta/IVC: Extensive atherosclerotic aortic calcifications without aneurysmal dilation. Lymph nodes: No lymphadenopathy. Bowel: Nonobstructed bowel. Mild stranding along the 2nd portion of the duodenum, more conspicuous. Appendix is not definitively visualized. No intraperitoneal free air or fluid. Pelvis: Limited evaluation due to beam hardening artifact from the patient`s hip prostheses. Bones/body wall: Partially visualized bilateral hip prostheses. Multilevel degenerative disc disease and facet arthropathy. Osseous demineralization. Impression: 1. Interval placement of a common bile duct stent with new pneumobilia. New stranding about the pancreatic head with adjacent fluid collections along the pancreatic head and 3rd portion of the duodenum, which raises concern for post ERCP pancreatitis with peripancreatic fluid collections. Per discussion with Dr. Engle, findings fit the patient`s clinical exam with elevated serum lipase. 2. Additional chronic/incidental findings as described. Please note that all CT scans at this facility use dose modulation, iterative reconstruction, and/or weight-based dosing when appropriate to reduce radiation dose to as low as reasonably achievable. Dictated by Manuela Beaver MD @ 01/20/2024 1:52:56 PM (Electronically Signed) Labs on day of discharge: Preliminary micro results at discharge 01/20/24 13:12 Blood Culture - Preliminary Blood NO GROWTH AFTER 48 HOURS 01/20/24 13:00 Blood Culture - Preliminary Blood NO GROWTH AFTER 48 HOURS Discharge Plan Discharge Disposition: Xfer Home- (Hospice) Date of Admission: 01/22/24 14:53 Attending Provider on Discharge: Latia Montero Primary Care Provider: Audra Doss Condition: Stable Anticipated Discharge Date/Time: 01/23/24 10:16 Discharge Medications: New polyethylene glycol 3350 [Miralax] 17 gram Powder In Packet 17 g PO DAILY Qty: 3 0RF sennosides-docusate sodium [Stool Softener-Laxative] 8.6-50 mg Tablet 1 tab PO BID Qty: 10 0RF bisacodyl 10 mg Suppository 10 mg NC DAILY PRNQty: 3 0RF ondansetron 4 mg Tablet,Disintegrating 4 mg PO Q6H PRNQty: 10 0RF oxycodone 5 mg Tablet 2.5 - 5 mg PO Q4H PRN (Reason: Pain) Qty: 10 0RF amoxicillin-pot clavulanate [Augmentin] 500-125 mg tablet 1 tab PO TID 3 Days Qty: 9 0RF Rx Instructions: Take with yogurt Continued (DME) FreeStyle Barbie 3 Sensor Device See Rx Instructions .Route Qty: 1 0RF Rx Instructions: As directed (DME) FreeStyle Barbie 14 Day [place] Misc See Rx Instructions .Route Qty: 1 0RF Rx Instructions: As directed (DME) FreeStyle Barbie 2 Sensor Kit See Rx Instructions .Route Qty: 2 11RF Rx Instructions: As directed AZO D-Mannose 500 mg capsule See Rx Instructions PO .COMPLEX Rx Instructions: 2 tabs daily Estring 2 mg (7.5 mcg /24 hour) ring 1 vag ring vaginal [id number] 90 Days Qty: 1 3RF clopidogrel [Plavix] 75 mg tablet 75 mg PO DAILY Discontinued cholecalciferol (vitamin D3) 25 mcg (1,000 unit) capsule 1,000 unit PO DAILY triamcinolone acetonide 0.5 % cream 1 applic topical BID PRN vitamin B complex Tablet 1 tab PO DAILY atorvastatin [Lipitor] 20 mg tablet 20 mg PO HS aspirin [Adult Aspirin Regimen] 81 mg tablet,delayed release (DR/EC) 81 mg PO DAILY glipizide 5 mg tablet 5 mg PO QAM Rx Instructions: 5 mg in the am and 2.5 mg in the pm glipizide 2.5 mg tablet 2.5 mg PO QPM Rx Instructions: 5 mg in the AM and 2.5 mg in the PM nitrofurantoin macrocrystal 50 mg capsule 50 mg PO Q24H 90 Days Qty: 90 3RF Discharge Orders: Discharge Order (Routine); Ordered 01/23/24 Ordered By: Latia Montero Activity Level: No Restrictions Discharge Diet: Regular Follow Up Appointments: Audra Doss, ORTHOPAEDIC NURSE, SLAB DEPILER OPERATOR [Primary Care Provider] - [facility]
--- NOTE | 2024-01-23 11:22 | PC.SOCIAL ---
Discharge planning: Pt will discharge home today with [facility] to complete the intake at 2pm. All the needed paperwork was sent to [facility] via fax. Pt and her daughter, Antonia, were provided The Important Message from Medicare form and this worker went over the hospital discharge appeal process. Pt and her family are pleased with the discharge plan and do not plan to appeal the discharge. Social work to follow-up as needed.
--- NOTE | 2024-01-23 13:31 | PC.NURSE ---
Discharge: Patient pleasant and cooperative, A&O. VSS, afebrile. Discharge instructions provided, all questions answered. IV removed with tip intact. Discharged on hospice with daughter. SBA.
== END 2024-01-23 12:43 | disposition hospice, home (50) | DRG 438 ==
LOC: ED 14:58 → MEDSURG 15:29
PROVIDERS: Admitting Provider Family Medicine; Emergency Provider Family Medicine; PCP Nurse Practitioner Family; Visit Provider Family Medicine
DX: K85.90 Acute pancreatitis without necrosis or infection, unspecified (principal); K83.1 Obstruction of bile duct; K91.840 Postprocedural hemorrhage of a digestive system organ or structure following a digestive system procedure; K92.1 Melena; C25.9 Malignant neoplasm of pancreas, unspecified; N39.0 Urinary tract infection, site not specified; R64 Cachexia; D62 Acute posthemorrhagic anemia; R01.1 Cardiac murmur, unspecified; D64.9 Anemia, unspecified; E11.9 Type 2 diabetes mellitus without complications; E78.2 Mixed hyperlipidemia; Z96.643 Presence of artificial hip joint, bilateral; Z68.22 Body mass index [BMI] 22.0-22.9, adult; Z86.73 Personal history of transient ischemic attack (TIA), and cerebral infarction without residual deficits; B96.20 Unspecified Escherichia coli [E. coli] as the cause of diseases classified elsewhere
CPT/HCPCS: 36415; 74176; 80048; 80069; 80076; 81001; 82150; 82270; 82803; 82962; 83690; 85025; 85027; 85610; 85730; 86140; 87040; 87086; 87186; 93005; 94761; 97116; 97161; 97165; 99285; G0378; A9270; C9113; J0696; J1170; J7030; J7042

== ENCOUNTER 2024-10-07 10:13 | Outpatient (CLI) | payer MEDICARE, SELFPAY | END 2024-10-07 10:14 | disposition home or self-care (01) | PROVIDERS: PCP Nurse Practitioner Family; Visit Provider Nurse Practitioner Family | DX: R53.83 Other fatigue (principal); E11.9 Type 2 diabetes mellitus without complications; C25.9 Malignant neoplasm of pancreas, unspecified; R63.4 Abnormal weight loss; E78.5 Hyperlipidemia, unspecified; D64.9 Anemia, unspecified; N39.0 Urinary tract infection, site not specified | CPT/HCPCS: 80053; 81001; 82043; 82150; 82570; 82607; 83690; 84439; 84443; 85025; 87086 ==

== ENCOUNTER 2024-12-23 13:57 | Outpatient (CLI) | payer MEDICARE, SELFPAY ==
--- NOTE | 2024-12-23 14:00 | CRLHL7_ITS ---
For Patients: As a result of the Century Cures Act, medical imaging exams and procedure reports are released immediately into your electronic medical record. You may view this report before your referring provider. If you have questions, please contact your health care provider. Indication: MALIGNANT NEOPLASM OF PANCREAS Technique: CT Abdomen/Pelvis W/61CC [id number] intravenous contrast Please note that all CT scans at this facility use dose modulation, iterative reconstruction, and/or weight-based dosing when appropriate to reduce radiation dose to as low as reasonably achievable. Comparison: 01/20/2024, 12/12/2023 Findings: Resolution of the previously noted peripancreatic fluid collections. Mildly prominent lymph node between the pancreas and left hepatic lobe measures 9 millimeters, not significantly changed. Internal biliary stent is present with expected pneumobilia. Some flattening of the inferior vena cava is present which could suggest some degree of dehydration. Stable small nodule involving the right adrenal gland which measures 1 cm. Left adrenal gland is unremarkable. Similar appearance of the kidneys without hydronephrosis. The spleen is not enlarged. No intrahepatic mass. Small hiatal hernia is unchanged. Small lymph node within the gastrohepatic ligament is unchanged measuring 6 millimeters. No bowel obstruction or free air. No free fluid or abscess. No pelvic mass. Bilateral hip replacement hardware partially obscures the pelvic anatomy. No vertebral body compression fracture or suspicious osseous lesion. Mild scarring in both lung bases. Impression: Resolution of the previously noted peripancreatic fluid collections. Good position of an internal biliary stent with expected pneumobilia. Stable sub cm upper retroperitoneal lymph nodes. Stable 1 cm right adrenal nodule. Please note that all CT scans at this facility use dose modulation, iterative reconstruction, and/or weight-based dosing when appropriate to reduce radiation dose to as low as reasonably achievable. Dictated by Bismark Davis MD @ 12/24/2024 12:00:24 PM (Electronically Signed)
[2024-12-23 15:07] LABS: Creatinine* 0.9 mg/dL (0.5-1.5); Estimated Glomerular Filt Rate 62 ml/min
== END 2024-12-23 13:58 | disposition home or self-care (01) ==
PROVIDERS: PCP Nurse Practitioner Family; Visit Provider Nurse Practitioner Family
DX: C25.9 Malignant neoplasm of pancreas, unspecified (principal); E27.8 Other specified disorders of adrenal gland
CPT/HCPCS: 36415; 74177; 82565; Q9967

== ENCOUNTER 2025-02-10 13:12 | Outpatient (CLI) | payer MEDICARE, SELFPAY ==
--- OUTSIDE RECORDS SUMMARY | 2025-01-20 | XMS_ITS | Encounter Summary ---
Author Organization [facility] Address [address] [place] [address] Care Team Providers Care Polyethylene Combiner Name Role Phone Elsewhere, Pcp Primary Care Provider Unavailabl e Encounter Details Date Type Department Care Team (Late st Contact Info) Description 01/20/2025 Ancillary Procedure Department of Ophthalmology Social History Tobacco Use Types Packs/Day Years Used Date Smoking Tobacco: Never Smokeless Tobacco: Never Alcohol Use Standard Drinks/Week Comments No 0 (1 standard drink = 0.6 oz pur e alcohol) [facility] Utilities Answer Date Recorded In the past 12 months has e electric, gas, oil, or water company threatened to shut off services in your home? No 01/20/2025 Humiliation, Afraid, Rape, and Kick questionnair e [...] by your partner or ex-partner? No 01/06/2024 Hunger Vital Sign Answer Date Recorded Within the past 12 months, y ou worried that your food would run out before you got the money to buy more. Never true 01/21/20 Within the past 12 months, t he food you bought just didn't last and you didn't have money to get more. Never true 01/20/2025 PRAPARE - Transportation Answer Date Re corded In the past 12 months, has l ack of transportation kept you from medical appointments or from getting medications? No 04/2025 In the past 12 months, has l ack of transportation kept you from meetings, work, or from getting things needed for daily living? No 01/20/2025 Housing Stability Answer Date Recorded What is your living situation today? 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 The clinical documentation to support these images can be found on the encounter that produced images. us Provider Not In System IMG NON RAD IMAGING PROCE DURES Final Result [facility]IMS NA documented in this encounter Visit Diagnoses Not on filedocumented in this encounter Care Teams Polyethylene Combiner Relationship Specialty Start Date End Date Elsewhere, Pcp PCP - General Internal Medicine 01/05/24 documented as of this encounter
--- OUTSIDE RECORDS SUMMARY | 2025-01-20 13:15 | XMS_ITS | Encounter Summary ---
Author Organization [facility] Address [address] [place] [address] Care Team Providers Care Greensman Name Role Phone Elsewhere, Pcp Primary Care Provider Unavailabl e Encounter Details Date Type Department Care Team (Latest Contact Info) Description 01/20/2025 1:15 PM CDT Ancillary Procedure Department of Ophthalmology in [place], [place] [address] [place] [address] Isrrael Fonseca M.D. 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 Never true 01/21/20 25 Within the past 12 months, t he [...] your living situation today? 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 OCT device used was Spectralis . Left Eye Reliability was good. OCT device used was Spectralis . Notes See interpretation in note section us Isrrael Fonseca M.D. 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
--- OUTSIDE RECORDS SUMMARY | 2025-01-20 13:30 | XMS_ITS | Encounter Summary ---
Author Organization [facility] Address [address] [place] [id number] Care Team Providers Care Correspondence Coordinator Name Role Phone Elsewhere, Pcp Primary Care Provider Unavailabl e Reason for Visit * Reason Comments Nonexudative Age-Related Macular Degener ation Unspecified S * Outpatient (Routine) - Closed Specialty Diagnoses / Procedures Referred By Gary elliott Referred To Contact Ophthalmology Isrrael Fonseca M.D. [address] [place] [address] Phone: tel: fax: [facility] Referral ID Status Reason Start Date Expiration Date Visits Re quested Visits Authorized [id number] Closed 09/11/2024 03/13/2026 1 1 Encounter Details Date Type Department Care Team (Latest Contact Info) Description 01/20/2025 1:30 PM CDT Office Visit Department of Ophthalmology in [place], [place] [address] [place] [phone] Isrrael Fonseca M.D. 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 Discussed prognosis given current degree of visual acuity despite improvement on OCT. Options areextend versus stop given poor prognosis. 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
--- OUTSIDE RECORDS SUMMARY | 2025-02-11 02:05 | XMS_ITS | Clinical Summary ---
Author Organization [facility] Address [address] [place] [address] Care Team Providers Care Mix Technician Name Role Phone Mayra Hong DIRECTOR SERVICE Unavailable [phone] Tarsha CRAWFORD MD, John Conteh Primary Care Provi linda Allergies Active Allergy Reactions Criticality Noted Date Comments Ampicillin *Unknown,Itching 10/28/2014 Tramadol Itching 11/06/2012 Medications cholecalciferol (VITAMIN D) 1,000 unit capsule Take 3,000 Units by mouth once daily. 11/11/19 15 Active blood sugar diagnostic (Contour Next Test Strips) stripIndications:T ype 2 diabetes mellitus without complication (HC) Dispense item covered by pt ins.TEST 3 TIMES DAILY. 300 Strip 3 02/25/20 21 Active flash glucose scanning reader (FreeStyle Barbie 14 Day [place]) miscIndications:Ty pe 2 diabetes mellitus without complication, without long-term current use of insulin (HC) As directed. 2 Each 11 06/01/20 21 Active glipiZIDE (GLUCOTROL) 5 mg tabletIndications: Type 2 diabetes mellitus without complication, without long-term current use of insulin (HC) Take 1 Tablet (5 mg) by mouth 2 times daily before meals. 180 Tablet 2 10/08/19 22 Active nitrofurantoin macrocrystaL (MACRODANTIN) 50 mg capsule Take 50 mg by mouth once daily. Active WalkerIndications: Cerebrovascular accident (CVA), unspecified mechanism (HC) Walker with front wheels for indefinite home use. 1 Each 01/06/20 Active citalopram (CELEXA) 10 mg tabletIndications: Cerebrovascular accident (CVA), unspecified mechanism (HC) Take 1 Tablet (10 mg) by mouth once daily. 60 Tablet 01/06/20 Active aspirin (ECOTRIN) 81 mg enteric coated tabletIndications: Cerebrovascular accident (CVA), unspecified mechanism (HC) Take 1 Tablet (81 mg) by mouth once daily with a meal. 60 Tablet 01/07/20 Active atorvastatin (LIPITOR) 20 mg tabletIndications: Carotid stenosis, left Take 1 Tablet (20 mg) by mouth once daily with evening meal. 30 Tablet 01/06/20 Active clopidogreL (PLAVIX) 75 mg tabletIndications: Facial weakness due to recent stroke Take 1 Tablet (75 mg) by mouth once daily. 30 Tablet 01/06/20 Active zinc sulfate (Zinc-220) 50 mg zinc (220 mg) capsule Take 220 mg by mouth once daily. Active Garlic 100 mg tab Take 1 Tablet by mouth at bedtime. Active TURMERIC ORAL Take 1 Tablet by mouth at bedtime. Active metFORMIN (GLUCOPHAGE) 500 mg tablet Take 500 mg by mouth two times daily with meals. Active sennosides-docusat e (SENOKOT S) (8.6-50 mg) tabletIndications: Constipation, unspecified constipation type Take 1 to 4 tablets by mouth two times daily. 10 Tablet 3 10:19 AM CDT 01/21/20 Active acetaminophen (TYLENOL) 325 mg tabletIndications: S/P carotid endarterectomy Take 2 Tablets (650 mg) by mouth every 6 hours. Max acetaminophen dose: 4000mg in 24 hrs. 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 Gender Identity Not on file Sexual Orientation [...] 71 01/20/2023 11:41 AM CDT Temperature 36.8 C (98.3 F) 01/20/2023 7:55 AM CDT Respiratory Rate 18 01/20/2023 11:41 AM CDT Oxygen Saturation 95% 01/20/2023 11:41 AM CDT Inhaled Oxygen Concentration - - Weight 54.4 kg (120 lb) 01/20/2023 6:02 AM CDT Height 152.4 cm (5') 01/19/2023 11:36 AM CDT Body Mass Index 23.44 01/19/2023 11:36 AM CDT Plan of Treatment Health Maintenance Due Date Last Done Comments Tdap 1951 Pneumococcal series for age 50+ (1 of 2 - PCV) 1957 Tetanus booster 1958 Zoster (shingles) series for age 50+ (1 of 2) 1988 DEXA/DXA scan for age 65+ 2003 Medicare Wellness for age 65+ 2003 RSV vaccine for adults or (1 - 1-dose 75+ series) 2013 BMI (ht and wt on same day) for age 18+ 05/04/2021 05/04/2020, 12/31/2018, 05/14/2018, Additional history exists Depression screening for age 12+ 10/11/2022 10/11/2021, 10/08/2021, 05/29/2018, Additional history exists COVID-19 vaccine series (2023- season) 2024 Influenza Vaccine (Season Ended) 2025 Hepatitis B series for 19+ Aged Out N o longer eligible based on patient's age to complete this topic Medical Devices Implanted Type Area Clinical Care Leader Device Identifier Shelf Expiration Date Model / Serial / Lot Tissue Pericardium 0.8x8cm Xenosure - [id number] Implanted:Qty: 1 on 01/19/2023 by Yaya Lewis MD at [facility] Left: Carotid Artery [employer] 10/11/2028 [id number] / / [id number] Insurance MEDICARE PB ONLY MEDICARE PART A HB ONLY MEDICARE PART B HB ONLY MEDICARE PPS Advance Directives * Full Code (Latest Code Status on File) Date Activated Date Inactivated Comments 01/19/2023 11:24 AM 01/20/2023 4:12 PM Question Answer Comments Code Status Discussion: Unable to Assess Preferences, Provider to review later * Full Code Date Activated Date Inactivated Comments 01/03/2023 9:22 PM 01/05/2023 9:11 PM Question Answer Comments Code Status Discussion: Reviewed Preferences Care Teams Mix Technician Relationship Specialty Start Date End Date John Willingham II, MD [address] [place] [address] PCP - General Family Practice 05/03/22 Mayra Hong NP Nurse Practitioner Nurse Practitioner 11/07/14
--- OUTSIDE RECORDS SUMMARY | 2025-02-11 02:05 | XMS_ITS | Clinical Summary ---
Author Organization [facility] Address [address] [place] [address] Care Team Providers Care Web Ui Designer Name Role Phone Elsewhere, Pcp Primary Care Provider Unavailabl e Source Comments Patient records contain information from all sites at [facility]. For routine questions regarding patient records, call [phone] during business hours, M-F 8:00 AM - 5:00 PM Central Time. Record requests for emergency care only can be directed to [phone] at any time.[facility] Allergies Active Allergy Reactions Criticality Noted Date Comments Ampicillin Itching Medium 10/28/2014 Sulfamethoxazole-Trimethoprim Rash Medium 2021 Tramadol Itching Medium 11/06/2012 Medications acetaminophen (TYLENOL) 325 mg tablet Take 500 mg by mouth every 6 (six) hours as needed for pain. 3 Active atorvastatin (LIPITOR) 20 mg tablet Take 1 tablet by mouth daily with dinner. 3 Active blood sugar diagnostic strips (Contour Next Test Strips) Dispense item covered by pt ins.TEST 3 TIMES DAILY. 1 Active glipiZIDE (GLUCOTROL) 5 mg tablet Take 5 mg by mouth 2 (two) times a day before breakfast and dinner. 2 Active flash glucose scanning reader (FreeStyle Barbie 14 Day [place]) by other route. 3 Active B complex-vitamin (SUPER B-50) capsule Take 1 tablet by mouth daily. 4 Active A LIPOIC MCTF-YTXJKH-ZLC BERINE ORAL Take 1 capsule by mouth daily. 4 Active flash glucose scanning reader (FREESTYLE BARBIE) by other route. 3 Active flash glucose sensor (FREESTYLE BARBIE) kit by other route. [address] tablet Take 81 mg by mouth daily. Active cholecalciferol , vitamin D3, 25 mcg (1,000 Unit) tablet Take 25 mcg by mouth daily. Active d-mannose (AZO D-Mannose) 500 mg capsule Take 2 capsules by mouth daily. Active sennosides-docu sate sodium (SENOKOT-S) 8.6-50 mg per tablet Take 1 tablet by mouth 2 (two) times a day. 30 tablet 1 4 Active OLANZapine (ZyPREXA) 2.5 mg tablet Take 1 tablet (2.5 mg total) by mouth at bedtime. 30 tablet 1 01/14/2024 10:11 AM CDT 4 Active Additional Information Patient not taking.Reported on 09/09/2024 clopidogreL (Plavix) 75 mg tablet Take 75 mg by mouth daily. 4 Active vitamins A,C,E-zinc-baljinder er (PreserVision AREDS) 7,160 Units-113 mg-100 Units per tablet Take 1 tablet by mouth daily. 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 Cholangitis Acute 12/13/2023 Facial Weakness From Stroke Cerebrovascular Acci dent 01/04/2023 Infarction Cerebral 01/04/2023 Infection Urinary Tract Personal History 023 Presence Of Artificial Hip Joint Bilateral 01/03 Stroke 01/03/2023 Diabetes Mellitus Type 2 Without Complication Hyperlipidemia Mixed 03/17/2016 Osteoarthritis 02/13/2012 Resolved Problems Problem Noted Date Diagnosed Date Resolved Date Stone Common Duct 12/13/2023 12/13/2023 Cataract Senile Nuclear Sclerosis Right 04/20/2018 08/30/2024 Overview (04/20/2018): Added automatically from request for surgery [id number] Cataract Senile Nuclear Sclerosis Left 04/20/2018 08/30/2024 Overview (04/20/2018): Added automatically from request for surgery [id number] Encounters Date Type Department Care Team Description 01/20/2025 1:30 PM CDT Office Visit Department of Ophthalmology in [place], [place] [address] [place] [phone] Isrrael Fonseca M.D. 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 Pancreas; Results 12/20/2024 Clinical Communication Department of Ophthalmology in [place], [place] [address] [place] [phone] Isrrael Fonseca M.D. 12/19/2024 2:40 PM CDT - 12/19/2024 11:59 PM CDT Hospital Encounter Outpatient Procedure Center in [address] [phone] Isrrael Fonseca M.D. 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 Nurse Assessment (Patient would like to switch her eye injection for 11/14/24) from Last 3 Months Family History Medical History Relation Name Comments Hypertension Brother 1 Jessica Hypertension Brother 2 Diabetes Daughter Cecilia Coronary artery disease Father Estevan Diabetes Mother Divina Amblyopia Neg Hx Anesthesia problems Neg Hx Blindness Neg Hx Cataracts Neg Hx Corneal Dystrophy Neg Hx Glaucoma Neg Hx Macular degeneration Neg Hx Retinal degeneration Neg Hx Retinal detachment Neg Hx Strabismus Neg Hx Vision loss Neg Hx Relation Name Status Comments Brother 1 Jessica Brother 2 Daughter Cecilia Father Estevan Mother Divina Social History Tobacco Use Types Packs/Day Years Used Date Smoking Tobacco: Never Smokeless Tobacco: Never Tobacco Cessation:Counseling Given: Not Answered Alcohol Use Standard Drinks/Week Comments No 0 (1 standard drink = 0.6 oz pur e alcohol) [facility] Utilities Answer Date Recorded In the past 12 months has [employer], gas, oil, or water [employer] threatened to shut off services in your [...] your living situation today? 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 Gender Identity Female 11/29/2023 7:47 PM CDT Sexual Orientation Straight 11/29/2023 7: 47 PM CDT Last Filed Vital Signs Vital Sign Reading Time Taken Comments Blood Pressure 146/55 01/14/2024 8:00 AM CDT Pulse 77 01/14/2024 8:00 AM CDT Temperature 37 C (98.6 F) 01/14/2024 8:00 AM CDT Respiratory Rate 18 01/14/2024 8:00 AM CDT Oxygen Saturation 93% 01/14/2024 6:00 AM CDT Inhaled Oxygen Concentration - - Weight 56.1 kg (123 lb 10.9 oz) 01/07/2024 5:00 AM CDT Height 162.6 cm (5' 4) 01/06/2024 4:00 AM CDT Body Mass Index 21.23 01/06/2024 4:00 AM CDT Plan of Treatment Health Maintenance Due Date Last Done Comments DTaP,Tdap,and Td Vaccines (1 - Tdap) 1959 Pneumococcal vaccine (50+ ye ars) (1 of 2 - PCV) 1957 Zoster Vaccines (1 of 2) 1988 Hepatitis B Vaccines (1 of 3 - Risk 3-dose series) 1998 RSV vaccine - (32-3 6 weeks) or 60+ years (1 - 1-dose 75+ series) 2013 COVID-19 Vaccine (1 - 2023-2 5 season) 2024 Influenza Vaccine (#1) 2025 Fall Risk Screen (Annual) Completed 12/19/2024 IPV Vaccines Aged Out No longer eligi ble based on patient's age to complete this topic Medical Devices Implanted Type Area Woodworker Helper Device Identifier Shelf Expiration Date Model / Serial / Lot Stnt Wll Rmv 0.035 Rx 10x40 - [id number] Implanted:Qty : 1 on 01/05/2024 by Leandra Fu M.D. at [facility] Biliary Stent [employer] [id number] / / [id number] Hip Implant Hip Implant Bilater al: Hip Lens Tcn [id number] Bicnvx +25.0d - [id number] - [id number] Implanted:Qty : 1 on 06/04/2018 by Mauri Farrell M.D. at [facility] Ocular Lens [employer] (Previously ALONDRA) [id number] / [id number] / Lens Tcn [id number] Ant +26.0d - [id number] - [id number] Implanted:Qty : 1 on 06/13/2018 by Mauri Farrell M.D. at [facility] Ocular Lens Left: Eye [employer] (Previously ALONDRA) [id number] 12/07/2021 [id number] 0 / [id number] / Explanted Type Area Woodworker Helper Device Identifier Shelf Expiration Date Model / Serial / Lot Stnt Ctt Otw 8.5f 9 - [id number] Implanted:Qty: 1 on 12/13/2023 by Matias Moss M.D., M.S. at [facility] Explanted:Qty: 1 on 01/05/2024 by Leandra Fu M.D. 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 The clinical documentation to support these images can be found on the encounter that produced images. us Provider Not In System IMG NON RAD IMAGING PROCE DURES Final Result Performing Organization Address [facility] Co de Phone Number IIMS NA * CT ABDOMEN PELVIS W CON-Outside CT Body (12/23/2024 3:45 PM CDT) Narrative [facility] - 12/24/2024 5:11 PM CDT This order has been created and auto-finalized to support the import of outside images. If available, original interpretation can be found on the Media Tab in Chart Review, in Document Viewer, as an image in InfinityView or as an Addendum. If a re-interpretation or overread is required please follow defined workflow. us Provider Not In System IMG CT PROCEDURES Final R esult Performing Organization Address [facility] de Phone Number IIMS NA * Intravitreal Injection, Pharmacologic Agent - OS - Left Eye (12/19/2024 3:13 PM CDT) Narrative Osvaldo Franklin M.D. - 12/19/2024 3:13 PM CDT Pre-Procedure Verification Pre-procedure verification conducted to verify correct patient identity, procedure to be performed and, as applicable, correct side and site. Patient consent obtained. 09/19/2024. Time Out Confirmed correct patient, procedure, site, and patient consented. Anesthesia Topical anesthesia was used. Pre/Post Procedure prep and meds used were Celluvisc 1-10 drops, Povidone 5% 1-10 drops, Povidone 10% swabs x 3 to lids and lashes, Proparacaine 0.5% 1-10 drops, Tetracaine 0.5% 1-10 drops. Procedure Details Injection: 1.25 mg bevacizumab 25 mg/mL Route: intravitreal, Site: Left Eye [facility]: 01594-050-87 Balanced salt solution irrigation to injected eye after the injection was Done. Hand motion was present. Count fingers was correct. Reviewed instructions and patient verbalizes understanding. Ancillary Staff Ancillary Staff: Tan Griggs RN, Liyah Mercer RN. Notes Patient oriented to outpatient procedure center. Reviewed process for scheduled procedure, and pain management including pain scale. Patient declines written post-procedure material or previously received brochure. Information reviewed and understanding assessed by teach-back. Follow-up appointments discussed and return schedule given if requested. Avastin Left Eye [facility] 35386-501-18 Lot# [id number] Exp: 03/02/25 Patient jumped during injection after extra numbing q-tips and felt pain. Would trial subconj lido at next visit. Jose Alejandro Franklin MD us Isrrael Fonseca M.D. [facility] PROCEDURES Final Result * Intravitreal Injection, Pharmacologic Agent - OS - Left Eye (11/14/2024 3:03 PM CDT) Narrative Mauri Farrell M.D. - 11/14/2024 3:03 PM CDT Pre-Procedure Verification Pre-procedure verification conducted to verify correct patient identity, procedure to be performed and, as applicable, correct side and site. Patient consent obtained. 09/19/2024. Time Out Confirmed correct patient, procedure, site, and patient consented. Anesthesia Topical anesthesia was used. Pre/Post Procedure prep and meds used were Celluvisc 1-10 drops, Povidone 5% 1-10 drops, Povidone 10% swabs x 3 to lids and lashes, Proparacaine 0.5% 1-10 drops, Tetracaine 0.5% 1-10 drops. Procedure Details Injection: 1.25 mg bevacizumab 25 mg/mL Route: intravitreal, Site: Left Eye [facility]: 70076-473-16 Balanced salt solution irrigation to injected eye after the injection was Done. Hand motion was present. Count fingers was correct. Reviewed instructions and patient verbalizes understanding. Ancillary Staff Ancillary Staff: Tarsha Smith RN; Tae Chapman RN. Notes Patient oriented to outpatient procedure center. Reviewed process for scheduled procedure, and pain management including pain scale. Patient declines written post-procedure material or previously received brochure. Information reviewed and understanding assessed by teach-back. Follow-up appointments discussed and return schedule given if requested. Left Eye Avastin [facility]: 67549-853-72 Lot# [id number] Exp. 02/08/2025 Visual acuity stable. Avastin injection left eye today without complication. Dr. Farrell Isrrael Fonseca M.D. OPHTH CLINIC PROCEDURES Final Result from Last 3 Months Insurance MEDICARE [facility] Advance Directives For more information, please contact: [phone] * DNR/DNI (Latest Code Status on File) [...] Answer Comments Full Code: Discussed Care Teams Web Ui Designer Relationship Specialty Start Date End Date Elsewhere, Pcp PCP - General Internal Medicine 01/05/24
--- OUTSIDE RECORDS SUMMARY | 2025-02-11 02:05 | XMS_ITS | Encounter Summary ---
Author Organization [facility] Address [address] [place] [address] Care Team Providers Care Mainframe Analyst Name Role Phone Elsewhere, Pcp Primary Care Provider Unavailabl e Reason for Visit * Reason Onset Date Comments Pancreas 12/25/2024 Results 12/25/2024 Encounter Details Date Type Department Care Team (Latest Contact Info) Description 12/25/2024 Clinical Communication Division of Gastroenterology in [place], [place] [address] [place] [address] Omid Dillard M.D. [address] [place] [phone] Pancreas; Results Social History Tobacco Use Types Packs/Day Years Used Date Smoking Tobacco: Never Smokeless Tobacco: Never Alcohol Use Standard Drinks/Week Comments No 0 (1 standard drink = 0.6 oz pur e alcohol) [facility] Utilities Answer Date Recorded In the past 12 months has [facility] [employer], gas, oil, or water [employer] threatened to shut off services in [...] a [facility] place to live 01/20/2025 Comments No Sex and Gender Information Value Date Recorded Sex Assigned at Female 11/29/2023 7:47 PM CDT 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
--- OUTSIDE RECORDS SUMMARY | 2025-02-11 02:05 | XMS_ITS | Encounter Summary ---
Author Organization [facility] Address [address] [place] [address] Care Team Providers Care Wool Spotter Name Role Phone Elsewhere, Pcp Primary Care Provider Unavailabl e Encounter Details Date Type Department Care Team (Latest Contact Info) Description 12/20/2024 Clinical Communication Department of Ophthalmology in [place], [place] [address] [place] [address] Isrrael Fonseca M.D. [address] [place] [address] Social History Tobacco Use Types Packs/Day Years Used Date Smoking Tobacco: Never Smokeless Tobacco: Never Alcohol Use Standard Drinks/Week Comments No 0 (1 standard drink = 0.6 oz pur e alcohol) [facility] Utilities Answer Date Recorded In the past 12 months has [facility] [employer], gas, oil, or water [employer] threatened to shut off services in your [...] your living situation today? 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
--- OUTSIDE RECORDS SUMMARY | 2025-02-11 02:05 | XMS_ITS | Encounter Summary ---
Author Organization [facility] Address [address] [place] [address] Care Team Providers Care Music Researcher Name Role Phone Elsewhere, Pcp Primary Care Provider Unavailabl e Reason for Referral * Outpatient (Routine) - Authorized Specialty Diagnoses / Procedures Referred By Gary elliott Referred To Contact Ophthalmology Isrrael Fonseca M.D. 200 [place] [address] Phone: tel: fax: [facility] Referral ID Status Reason Start Date Expiration Date V isits Requested Visits Authorized [id number] Authorized 01/20/2025 07/22/2026 1 1 Scheduling Instructions Retinal Injection Plan Plan for Injections 01/20/25: Avastin LEFT for Wet AMD within 1 week Follow up for 3 more injections every 6-8 weeks Follow up: 8-9 weeks after the last injection with OCT both eyes (hold injection slot) Injection details: Delaplane or Sutton injections * Outpatient (Routine) - Authorized Specialty Diagnoses / Procedures Referred By Gary elliott Referred To Contact Diagnoses 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 200 [place] [address] Phone: tel: fax: [facility] Referral ID Status Reason Start Date Expiration Date V isits Requested Visits Authorized [id number] Authorized 01/20/2025 04/22/2026 4 4 Encounter Details Date Type Department Care Team (Latest Contact Info) Description 01/20/2025 Orders Only Department of Ophthalmology in [place], [place] [address] [place] [address] Isrrael Fonseca M.D. 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 (HCC) (Primary Dx) Social History Tobacco Use Types Packs/Day Years Used Date Smoking Tobacco: Never Smokeless Tobacco: Never Alcohol Use Standard Drinks/Week Comments No 0 (1 standard drink = 0.6 oz pur e alcohol) [facility] Utilities Answer Date Recorded In the past 12 months has e [employer], gas, oil, or water [employer] threatened to shut off services in your [...] have a [facility] place to live 01/20/2025 Comments No Sex and Gender Information Value Date Recorded Sex Assigned at Female 11/29/2023 7:47 PM CDT 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 Gender Identity Female 11/29/2023 7:47 PM CDT Sexual Orientation Straight 11/29/2023 7: 47 PM CDT documented as of this encounter Plan of Treatment Scheduled Orders Name Type Priority Associated Diagnoses Orde r Schedule Intravitreal Injection, Pharmacologic Agent - OS - Left Eye Ophthalmology Routine 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 (HCC) 6-8 weeks for 4 Occurrences starting 01/20/2025 until 01/21/2028 Optical Coherence Tomography - Macula/Retina - OU - Both Eyes Ophthalmology Routine 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 (HCC) 1 Occurrences starting 01/20/2025 until 01/21/2028 Scheduled Referrals Name Type Priority Associated Diagnoses Order Schedule Ophthalmology office visit (clinic): Self; Injection Outpatient Referral Routine 1 Occurrences starting 01/20/2025 until 01/21/2028 documented as of this encounter Visit Diagnoses Diagnosis 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
== END 2025-02-10 13:13 | disposition home or self-care (01) ==
PROVIDERS: PCP Nurse Practitioner Family; Visit Provider Nurse Practitioner Family
DX: E78.5 Hyperlipidemia, unspecified (principal); R53.83 Other fatigue; R63.4 Abnormal weight loss; E11.9 Type 2 diabetes mellitus without complications; D64.9 Anemia, unspecified; R35.0 Frequency of micturition; N39.0 Urinary tract infection, site not specified; K92.1 Melena
CPT/HCPCS: 80053; 81001; 82306; 82607; 82728; 83540; 83550; 84207; 84443; 85025; 86376; 87086

== ENCOUNTER 2025-06-24 13:41 | Outpatient (CLI) | payer MEDICARE, OTHER, SELFPAY | END 2025-06-24 13:42 | disposition home or self-care (01) | LOC: KYNREF 13:42 | PROVIDERS: PCP Nurse Practitioner Family; Visit Provider Nurse Practitioner Family | DX: N39.0 Urinary tract infection, site not specified (principal) | CPT/HCPCS: 81001; 87086 ==